=== PATIENT | female | born 1955 | race Caucasian/White ===

== ENCOUNTER 2022-08-01 12:58 | Outpatient (CLI) | payer MEDICARE, OTHER, SELFPAY ==
--- NOTE | ~2022-08-01 | US_ITS ---
EXAMINATION: US thyroid DATE: 08/01/2022 14:10 INDICATION: Nontoxic single thyroid nodule. TECHNIQUE: Multiple ultrasound images of the thyroid were obtained. COMPARISON: None. FINDINGS: The right thyroid lobe measures 3.8 x 1.3 x 1.8 cm. The left thyroid lobe measures 3.9 x 1.3 x 1.8 c m. In the left thyroid lobe, there is a 6 mm coarse calcification. In the left thyroid lobe, there i s an 8 mm mixed cystic and solid, isoechoic, wider than tall nodule with ill-defined margin without e chogenic foci (TI-RADS TR2). IMPRESSION: 1. Small thyroid nodules, likely not clinically significant. No follow-up is needed. Reviewed, dictated and finalized at location A. ING MIXTURE CARRIER IMPRESSION: 1. Small thyroid nodules, likely not clinically significant. No follow-up is ne eded.
== END 2022-08-01 12:59 | disposition home or self-care (01) ==
LOC: ANHIMG 13:05
PROVIDERS: PCP Family Medicine; Visit Provider Physician Assistant Medical
DX: E04.2 Nontoxic multinodular goiter (principal)
CPT/HCPCS: 76536

== ENCOUNTER 2022-11-11 01:32 | Day surgery (SDC) | payer MEDICARE, OTHER, SELFPAY ==
[2022-11-05 08:54] VITALS: BMI 25.2
[2022-11-11 09:15] VITALS: BP 156/61; PULSE 74; RESP 16; TEMP 36.3; O2SAT 98; BMI 23.2
--- NOTE | 2022-11-11 09:30 | P.PNAN_ITS ---
Anes - Initial Pre Proc Eval Procedure: Operation Date: 11/11/22 10:30 Proposed Procedures p Colonoscopy - Rudolph Youssef MD Date/Time: 11/11/22 09:30 Surgeon: Rudolph Youssef MD Pre Op Diagnosis: other fecal abnormalities Patient Data Age: 67 Gender: F Height: 1.45 m Weight: 48.7 kg Last Vital Signs Temp 36.3 C L 11/11/22 09:15 Pulse 74 11/11/22 09:15 Resp 16 11/11/22 09:15 BP 156/61 H 11/11/22 09:15 Pulse Ox 98 11/11/22 09:15 O2 Del Method Room Air 11/11/22 09:15 Allergies Allergy/AdvReac Type Severity Reaction Status Date / Time No Known Allergies Allergy Verified 11/11/22 09:23 Home Medications Medication Instructions Recorded Confirmed Type multivitamin 1 tablet PO DAILY 01/14/22 11/11/22 History phenytoin sodium extended 100 mg 100 mg PO .COMPLEX 01/14/22 11/11/22 History capsule (Dilantin Extended) phenytoin 50 mg chewable tablet 50 mg PO QPM 07/25/22 11/11/22 History (Dilantin Infatabs) Patient hx anesthesia problems: none Family hx anesthesia problems: none Results Review: All pre-operative results and documents have been reviewed as part of the pre- operative evaluation. [facility] Past Medical History Medical History (Updated 07/25/22 @ 14:04 by Bruna Mas CMA) Arthritis Migraines Seizures Family History Family History (Updated 07/25/22 @ 14:03 by Bruna Mas CMA) Father Diabetes mellitus Diabetic neuropathy Mother Acute myocardial infarction Hypertension Son No problems noted. Social History Social History (Updated 07/25/22 @ 14:13 by Bruna Mas CMA) Smoking status: Former smoker Alcohol intake: current Alcohol use details: seldom; socially Substance use: never Substance use type: does not use Lack of Transportation: No Lack of Food: Never True Current Housing: I Have Housing Concerned About Future Housing: No Difficulty Paying Gas/Electric Bills: No Difficulty Paying for Meds: No Currently Unemployed: No Education: Trade/Vocational Certificate Difficulty w/ Childcare or Family Care: No Living arrangements: alone Spiritual care concerns: No Agree to blood products: Yes Anes - Eval Final PreProcedure Day of Procedure 11/11/22 09:30 Patient weight: normal Heart: regular rate and rhythm Lungs: clear to auscultation and normal air movement Airway: Mallampati scale class II Neurological: alert and oriented Last oral intake: >/= 8 hours ASA classification: III Emergent: no Anesthetic plan: proceed Anesthesia type and monitoring: general GIVS Results Review: All pre-operative results and documents have been reviewed as part of the pre- operative evaluation. Informed Consent: The patient's anesthetic plan and its attendant risks and benefits were discussed with the patient/family/POA. Questions were solicited and answers provided to the satisfaction of the patient/family/POA.
[2022-11-11] MEDS: LACTATED RINGERS 1,000 ML 150 ML IV CONT (09:42)
--- NOTE | 2022-11-11 10:08 | PM.HPGS ---
History of Present Illness History of Present Illness Consent: Risks, benefits, and alternatives have been discussed and questions answered. Patient agrees to proceed with procedure. Chief complaint: positive cologuard test Narrative: Orquidea Kim is a 67 year old female Presents for screening colonoscopy. Patient recently found to have positive Cologuard test. Patient reports that her current weight appetite and bowel movements are normal. Patient denies abdominal pain. She has had no bleeding. Family history is noncontributory. Review of Systems Review of Systems: Review of systems noncontributory. [facility] Past Medical History Medical History (Updated 11/11/22 @ 10:10 by Rudolph Youssef MD) Arthritis Migraines Seizures Family History Family History (Updated 07/25/22 @ 14:03 by Bruna Mas CMA) Father Diabetes mellitus Diabetic neuropathy Mother Acute myocardial infarction Hypertension Son No problems noted. Social History Social History (Updated 07/25/22 @ 14:13 by Bruna Mas CMA) Smoking status: Former smoker Alcohol intake: current Alcohol use details: seldom; socially Substance use: never Substance use type: does not use Lack of Transportation: No Lack of Food: Never True Current Housing: I Have Housing Concerned About Future Housing: No Difficulty Paying Gas/Electric Bills: No Difficulty Paying for Meds: No Currently Unemployed: No Education: Trade/Vocational Certificate Difficulty w/ Childcare or Family Care: No Living arrangements: alone Spiritual care concerns: No Agree to blood products: Yes Meds Home Medications and Allergies Home Medications Medication Instructions Recorded Confirmed Type multivitamin 1 tablet PO DAILY 01/14/22 11/11/22 History phenytoin sodium extended 100 mg 100 mg PO .COMPLEX 01/14/22 11/11/22 History capsule (Dilantin Extended) phenytoin 50 mg chewable tablet 50 mg PO QPM 07/25/22 11/11/22 History (Dilantin Infatabs) Allergies Allergy/AdvReac Type Severity Reaction Status Date / Time No Known Allergies Allergy Verified 11/11/22 09:23 Vital Signs Vital Signs - 24 hr 11/11/22 09:15 Temperature 97.3 F L Pulse Rate 74 Respiratory Rate 16 Blood Pressure 156/61 H Pulse Oximetry 98 Oxygen Delivery Room Air Exam Narrative: Physical exam reveals patient to be alert. Vital signs stable. HEENT exam is unremarkable. Patient is anicteric. Lungs are clear to auscultation and percussion. Heart is without murmur or extra sounds. Abdomen bowel sounds are present soft nontender with no organomegaly. Digital external rectal exam is normal. Assessment and Plan Assessment and plan (1) Positive colorectal cancer screening using Cologuard test: Code(s): R19.5 - Other fecal abnormalities Status: Acute Assessment and Plan: Patient presents for screening colonoscopy. Recent Cologuard test was found to be positive.
[2022-11-11] MEDS: SIMETHICONE ORAL SUSPENSION 20 MG/0.3 ML 30 ML BOTTLE 0.6 ML IRRIGATION (11:13)
[2022-11-11 11:22] VITALS: BP 97/63; PULSE 71; RESP 22; O2SAT 100
[2022-11-11 11:32] VITALS: BP 119/70; PULSE 61; RESP 22; O2SAT 100
[2022-11-11 11:42] VITALS: BP 119/70; PULSE 59; RESP 18; O2SAT 100
--- NOTE | 2022-11-11 11:55 | SUR.PHASEII ---
Discharge delayed due to [facility] not being available until 1240.
== END 2022-11-11 12:30 | disposition home or self-care (01) ==
PROVIDERS: PCP Family Medicine; Visit Provider Internal Medicine Gastroenterology
PROC: 0DJD8ZZ Inspection of Lower Intestinal Tract, Via Natural or Artificial Opening Endoscopic (ICD-10-PCS; CPT 45378; principal; 2022-11-11 10:30)
DX: Z12.11 Encounter for screening for malignant neoplasm of colon (principal); R19.5 Other fecal abnormalities; D12.3 Benign neoplasm of transverse colon; D12.5 Benign neoplasm of sigmoid colon; K64.8 Other hemorrhoids; G40.909 Epilepsy, unspecified, not intractable, without status epilepticus; Z87.891 Personal history of nicotine dependence
CPT/HCPCS: 45385; 88305; J2704; J7120

== ENCOUNTER 2024-08-03 12:21 | Inpatient (IN) | payer MEDICARE, OTHER, SELFPAY ==
[2024-08-03] VITALS (14 sets, daily range): BP systolic 126–156; BP diastolic 73–89; PULSE 85–96; RESP 12–20; TEMP 36.2–37.2; O2SAT 95–100; BMI 23.4
--- NOTE | ~2024-08-03 | XR_ITS ---
Exam: Abdomen 1V HISTORY: WITH HYPAQUE WATER SOLUBLE CONTRAST COMPARISON: 08/19/2024 TECHNIQUE: Supine images of the lower chest and upper abdomen FINDINGS: Gastrostomy tube extends into the left upper quadrant. Oral contrast opacifies the stomach and proximal small bowel IMPRESSION: Gastrostomy tube in good position and ready for immediate use. Given the nursing notes document leakage around the tube, perhaps conversion to a gastrojejunostomy t ube would be more appropriate in this patient, especially in her history of laryngeal penetration and aspiration. Consult interventional radiology, if this needs to be requested. Thank you for the opportunity to assist in the care of your patient. For questions or concerns regarding this interpretation, please reach out to me directly at [phone]. Reviewed, dictated and finalized at location A. IMPRESSION: Gastrostomy tube in good position and ready for immediate use. Given the nursing notes document leakage around the tube, perhaps conversion to a gastrojejunostomy tube would be more appropriate in this patient, especially in her history of laryngeal penetration and aspiration. Consult interventional radiology, if this needs to be requested. Thank you for the opportunity to assist in the care of your patient. For questions or concerns regarding this interpretation, please reach out to me directly at [phone].
--- NOTE | ~2024-08-03 | XR_ITS ---
XR abdomen/kub 1V Ordering provider: RAMON Arriola History: . abdominal distention . Comparison: None. FINDINGS: BOWEL: Distended bowel loops with no evidence of obstruction. Nonobstructive bowel gas pattern. Nasogastric tube with the tip in the stomach. ORGANOMEGALY: None. SIGNIFICANT PATHOLOGIC CALCIFICATIONS: None. OTHER: No free air is seen under the diaphragm. Levoscoliosis with degenerative changes of the spine. IMPRESSION: NO ACUTE ABDOMINAL FINDINGS. Distended bowel loops with no definite evidence of obstruction. Follow-up advised. Reviewed, dictated and finalized at location A. IMPRESSION: NO ACUTE ABDOMINAL FINDINGS. Distended bowel loops with no definite evidence of obstruction. Follow-up advis ed.
--- NOTE | ~2024-08-03 | XR_ITS ---
EXAMINATION: XR abdomen gastric tube rechec DATE: 08/05/2024 14:37 INDICATION: Nasogastric tube adjustment. TECHNIQUE: An upright view of the abdomen was obtained. COMPARISON: CT 08/05/2024 FINDINGS: The lower abdomen is excluded. There are multiple dilated loops of small bowel. The stomach is distended. The nasogastric tube tip is in the distal esophagus. IMPRESSION: 1. Nasogastric tube tip in abnormal position in the distal esophagus. 2. Dilated small bowel and distended stomach, consistent with adynamic ileus. Reviewed, dictated and finalized at location A. OR MAKER
--- NOTE | ~2024-08-03 | XR_ITS ---
EXAM: XR abdomen/kub 1V DATE: 08/07/2024 19:32 HISTORY: Abdominal distention . COMPARISON: 08/06/2024, 08/05/2024; CT abdomen pelvis 08/05/2024. FINDINGS: NG tube removed or displaced. Severe gastric distention. Multiple loops of dilated small vesna wel throughout the abdomen. No definite large bowel dilation. Severe lumbar scoliosis and degenerativ e disc disease. Surgical drain over the left pelvis. IMPRESSION: NG tube not visualized. Severe gastric distention. Small bowel ileus or obstruction. Reviewed, dictated and finalized at location K. IMPRESSION: NG tube not visualized. Severe gastric distention. Small bowel ileu s or obstruction.
--- NOTE | ~2024-08-03 | CT_ITS ---
EXAMINATION: CT brain wo con DATE: 08/10/2024 11:16 INDICATION: Confusion. TECHNIQUE: Computed tomography (CT) of the head was performed without intravenous contrast. The mA wa s adjusted according to patient size. Iterative reconstruction technique was employed. The dose-lengt h product was 605.33 mGy-cm. COMPARISON: Head CT 03/10/2019 FINDINGS: There are scattered areas of low attenuation in the cerebral white matter, which is within normal limits for the patient's age. There is no intracranial hemorrhage, acute infarction, or abnorm al intracranial mass lesion. The ventricles are normal in size. The orbits are normal. The paranasal sinuses are clear. There is a trace left mastoid effusion. IMPRESSION: 1. Normal aging brain. Reviewed, dictated and finalized at location B. IMPRESSION: 1. Normal aging brain.
--- NOTE | ~2024-08-03 | XR_ITS ---
Supine and upright views of the abdomen Clinical history: G-tube placement Findings: G-tube in satisfactory position, contrast opacifying the gastric lumen. No abnormal extrava sation of contrast seen. Bowel gas pattern is otherwise nonspecific. No evidence for obstruction or f ree air. No abnormal mass lesion or calcification is seen. Osseous structures are intact. Impression: Percutaneous gastrostomy tube in satisfactory position. Reviewed, dictated and finalized at location . Impression: Percutaneous gastrostomy tube in satisfactory position.
--- NOTE | ~2024-08-03 | XR_ITS ---
MODIFIED ESOPHAGRAM HISTORY: Possible aspiration TECHNIQUE: Modified barium esophagram was performed on 08/19/2024. I administered fluoroscopy and perf ormed the exam with speech pathologist. Patient was seated for lateral fluoroscopic imaging for alfonso stion of thin liquids, pudding, solids and quantified amounts, followed by thin liquids in uncontroll ed amounts. This was recorded on tape. A single fluoroscopic spot image was also recorded. The DAP fo r this procedure was 1.107 Gycm2. The amount of fluoroscopy time used during this procedure was 1.5 m inutes. FINDINGS: Oral stage: Reduced lingual movement with premature spillage of thin liquids.. Pharyngeal stage: Reduced laryngeal elevation and adduction. There is laryngeal penetration before an d during the swallow with aspiration during and following the swallow.. Cervical/esophageal stage: Adequate function. IMPRESSION: Oropharyngeal dysphagia with laryngeal penetration and aspiration. Please correlate with speech pathologist findings and specific feeding recommendations. Reviewed, dictated and finalized at location A. IMPRESSION: Oropharyngeal dysphagia with laryngeal penetration and aspiration. Please correlate with speech pathologist findings and specific feeding recomme ndations.
--- NOTE | ~2024-08-03 | XR_ITS ---
Portable chest x-ray Comparison: 08/09/2024 Clinical History: Chest congestion Findings: NG tube and right-sided PICC line are in place. There is central congestive change and pro bable mild bibasilar pulmonary edema. Cardiomediastinal silhouette is stable. Bones and soft tissues are unremarkable. Impression: Central congestive change and probable mild bibasilar pulmonary edema. Support tubes, as above. Reviewed, dictated and finalized at location . Impression: Central congestive change and probable mild bibasilar pulmonary edema. Support tubes, as above.
--- NOTE | ~2024-08-03 | CT_ITS ---
EXAMINATION: CT abdomen pelvis w con DATE: 08/05/2024 12:08 INDICATION: Small bowel obstruction TECHNIQUE: Computed tomography (CT) of the abdomen and pelvis was performed with 100 mL Omnipaque-350 intravenous contrast. Automated exposure control and iterative reconstruction technique were employe d. The dose-length product was 281.95 mGy-cm. COMPARISON: 08/03/24 FINDINGS: Small posterior layering left pleural effusion. Mild dependent atelectasis in the bilateral lower lob es, left greater than right. Heart size is normal. No pericardial effusion. Nasogastric tube tip just above level of the gastroesophageal junction with some fluid in the distal esophagus. There is persi stent prominent gaseous distention of the stomach and multiple dilated loops of gas and fluid-filled small bowel throughout the abdomen and pelvis. The bowel gradually tapers distally transition to deco mpressed small bowel in the right abdomen however a single discrete transition point is not identifie d. Moderate amount of gas and stool at the cecum. The more distal colon is relatively decompressed. N ormal appendix. Minimal gas within the decompressed bladder to recent catheterization or instrumentat ion. Atrophic uterus and bilateral adnexa are unremarkable. Small amount of perihepatic and perisplen ic ascites. Additional small amount of ascites within the small right inguinal hernia. No abscess or free intraperitoneal gas. There is a surgical drain along with some soft tissue within the subcutaneo us tissues at the left inguinal region likely related to interval left inguinal hernia repair.. Tip o f the catheter near the anterior margin of the pubic symphysis. Moderate thoracolumbar levoscoliosis with moderate to severe spondylosis. IMPRESSION: 1. Persistent distention of the stomach and multiple dilated loops of small bowel which progressively decreases in caliber without a clearly identifiable single discrete transition point and would favor residual postoperative ileus over obstruction. 2. Small left pleural effusion and small amount of ascites. 3. Nasogastric tube tip above level of the gastroesophageal junction. Recommend advancement by 10 cm. 4. Postoperative change of interval left inguinal hernia repair with subcutaneous surgical drain at t he operative bed. Reviewed, dictated and finalized at location B. MECHANIC IMPRESSION: 1. Persistent distention of the stomach and multiple dilated loops of small bow el which progressively decreases in caliber without a clearly identifiable sing le discrete transition point and would favor residual postoperative ileus over obstruction. 2. Small left pleural effusion and small amount of ascites. 3. Nasogastric tube tip above level of the gastroesophageal junction. Recommend advancement by 10 cm. 4. Postoperative change of interval left inguinal hernia repair with subcutaneo us surgical drain at the operative bed.
--- NOTE | ~2024-08-03 | XR_ITS ---
XR abdomen/kub 1V Ordering provider: Pipo Peguero DO History: . NG placement . Comparison: None. FINDINGS/impression: Nasogastric tube with the tip in the stomach. The sidehole is near to the gastro esophageal junction. Reviewed, dictated and finalized at location A. L CONTROL WORKER
--- NOTE | ~2024-08-03 | CT_ITS ---
EXAMINATION: CT abdomen pelvis w con DATE: 08/03/2024 13:44 INDICATION: Abdominal pain. Nausea. TECHNIQUE: Computed tomography (CT) of the abdomen and pelvis was performed with 100 mL Omnipaque 350 intravenous contrast. Automated exposure control and iterative reconstruction technique were employe d. The dose-length product was 215.51 mGy-cm. COMPARISON: None. FINDINGS: The visualized portions of the lung bases demonstrate mild atelectasis. No pleural effusion . The heart size is normal. No pericardial effusion. There is fluid in the esophagus. The stomach is distended. The liver, spleen, pancreas, adrenal glands, and kidneys are normal. There is a left ingui nal hernia containing small bowel. The bowel is dilated proximal to the hernia and decompressed dista l to the hernia. There is a right inguinal hernia containing ascites. There are no pathologically enl arged lymph nodes. There is thoracolumbar levoscoliosis and severe spondylosis. There is mild chronic anterior wedging of multiple thoracic vertebral bodies. IMPRESSION: 1. Left inguinal hernia containing small bowel with small bowel obstruction. 2. Right inguinal hernia containing ascites. Reviewed, dictated and finalized at location A. NESS CENTER MANAGER
--- NOTE | ~2024-08-03 | XR_ITS ---
EXAMINATION: XR abdomen gastric tube insert DATE: 08/03/2024 15:19 INDICATION: Nasogastric tube placement. TECHNIQUE: An upright view of the abdomen was obtained. COMPARISON: CT abdomen and pelvis 08/03/2024 FINDINGS: The lower abdomen is excluded. The stomach is distended. There are dilated loops of small b owel. The nasogastric tube tip is in the stomach. IMPRESSION: 1. Nasogastric tube tip in the stomach. 2. Small bowel obstruction. Reviewed, dictated and finalized at location A. QUALITY CONSULTANT
--- NOTE | ~2024-08-03 | XR_ITS ---
EXAMINATION: XR UGI w esoph water soluble DATE: 08/10/2024 11:49 INDICATION: 69-year-old woman postoperative day 5 following open obstructing left inguinal hernia rep air and postoperative day #1 following exploratory laparotomy for suspected abdominal compartment syn drome. TECHNIQUE: The patient drank Gastrografin. Fluoroscopy of the hypopharynx and esophagus was performed . Fluoroscopy exposure time was 2.4 minutes. The total number of images was 119. The dose-area produc t was 19.6 Gy-cm^2. COMPARISON: Reference was made to a preoperative CT examination of the abdomen and pelvis performed . FINDINGS: The patient swallowed Gastrografin without difficulty. Esophageal dysmotility is also noted, with aggressive tertiary contractions. Significant esophageal reflux is also detected. Delayed passage of Gastrografin into the stomach, with external compression of the proximal stomach f or which (likely) prior fundoplication is suspected. The oral contrast did not migrate out of the proximal stomach, for the duration of the examination. Significantly dilated loops of colon are also noted, as is air within the rectum. Extraluminal air is also present, and system with patient's history. IMPRESSION: Findings within the distal esophagus/proximal stomach for which prior fundoplication is suspected. Esophageal dysmotility and significant esophageal reflux is also detected. Reviewed, dictated and finalized at location A. IMPRESSION: Findings within the distal esophagus/proximal stomach for which prior fundoplic ation is suspected. Esophageal dysmotility and significant esophageal reflux is also detected.
--- NOTE | ~2024-08-03 | XR_ITS ---
XR chest PICC line Ordering provider: Deshawn Walden MD History: 69 years Female with . picc placement . Comparison: December 08, 2018 FINDINGS: MEDIASTINUM: The cardiac silhouette is not enlarged. After repositioning PICC line is seen with the t ip overlying the superior vena cava. Nasogastric tube with the tip in the stomach and the sidehole ne ar to the gastroesophageal junction. Prominent both ben. LUNGS: No infiltrates, effusions or pneumothorax. Underlying fibrotic changes. OTHER: No free air under the diaphragm. Levoscoliosis in the lumbar area with degenerative changes seen. The IMPRESSION: No acute cardiopulmonary pathology. Reviewed, dictated and finalized at location A. ING BOOKS LIBRARY CLERK
--- NOTE | ~2024-08-03 | XR_ITS ---
Upright portable view of the abdomen Clinical history: NG tube placement COMPARISON: 08/05/2024 Findings: NG tube in place, side port just below the GE junction. There is marked gaseous distention of the stomach. There probable distended small bowel loops. No definite free air. No abnormal mass le dre or calcification is seen. Osseous structures are intact. Impression: NG tube in place, as above. Marked gaseous distention of several probable dilated small bowel loops. Correlate for small bowel ob struction versus ileus. Reviewed, dictated and finalized at location M. Impression: NG tube in place, as above. Marked gaseous distention of several probable dilated small bowel loops. Correl ate for small bowel obstruction versus ileus.
--- NOTE | ~2024-08-03 | XR_ITS ---
XR chest 1V portable Ordering provider: Anna Romero MD History: 69 years Female with . lungs coarse . Comparison: August 13, 2024 FINDINGS: MEDIASTINUM: The cardiac silhouette is slightly enlarged. Nasogastric tube is seen with the tip in th e stomach. Right central line with the tip overlying the superior vena cava. Congestive ben. LUNGS: No effusions or pneumothorax. Minimal opacification the right lung base which may indicate ate lectasis versus pneumonia. Underlying fibrotic changes. Vague opacity seen in the left midzone periph erally. Follow-up advised. OTHER: No free air under the diaphragm. Levoscoliosis of the lumbar spine. Bilateral shoulder osteoarthritic changes. IMPRESSION: Minimal opacification the right lung base suggestive of atelectasis versus pneumonia. Reviewed, dictated and finalized at location A. IMPRESSION: Minimal opacification the right lung base suggestive of atelectasis versus pneu monia.
--- NOTE | ~2024-08-03 | XR_ITS ---
Exam: Abdomen 1V HISTORY: abdominal pain, distention COMPARISON: 08/19/2024 TECHNIQUE: Supine images of the abdomen FINDINGS: Air and contrast distention of the colon and rectum. A 3 cm rounded density is identified to the left of midline for which the percutaneous gastrostomy tu be is suspected. Left lung base is unremarkable. Skin whitley are present. IMPRESSION: Significant gaseous distention of the colon. Contrast opacification of the rectum which is markedly distended. Percutaneous gastrostomy to the left of midline. Reviewed, dictated and finalized at location A.
--- NOTE | ~2024-08-03 | XR_ITS ---
XR abdomen gastric tube insert Ordering provider: Matthias Jett MD History: . Gastritis with severe gastric distention . Comparison: None. FINDINGS/impression: Nasogastric tube with the tip in the stomach. The sidehole is near to the gastroesophageal junction. Reviewed, dictated and finalized at location A. N BUILDER
--- NOTE | ~2024-08-03 | XR_ITS ---
Exam: Abdomen 1V HISTORY: NGT placement COMPARISON: 08/03/2024 (preoperatively) approximately 5 hours earlier TECHNIQUE: Upright images of the lower chest and upper abdomen FINDINGS: Nasogastric tube extends into the left upper quadrant, within the air opacified dilated stomach. IMPRESSION: Nasogastric tube in good position and ready for immediate use. Reviewed, dictated and finalized at location A. LITATOR
--- NOTE | ~2024-08-03 | XR_ITS ---
EXAMINATION: XR chest 1V portable Exam Date/Time: 08/13/2024 15:38 CDT HISTORY: r/o PNA Comparison: 08/10/2024. RESULT: Lines, tubes, and devices: Subdiaphragmatic NG tube. Right upper extremity PICC, terminating in the right atrium. Lungs and pleura: Mild bibasilar atelectasis/scar. Mild bilateral costophrenic angle blunting. No fo archana consolidation. No pneumothorax. Cardiomediastinal silhouette: Stable. Other: No acute osseous or upper abdominal finding. IMPRESSION: Right upper extremity PICC terminates in the right atrium, consider 3 cm retraction. No focal consolidation to suggest pneumonia. Possible small bilateral pleural effusions. Reviewed, dictated and finalized at location K. IMPRESSION: Right upper extremity PICC terminates in the right atrium, consider 3 cm retrac tion. No focal consolidation to suggest pneumonia. Possible small bilateral pleural e ffusions.
--- NOTE | ~2024-08-03 | XR_ITS ---
Portable chest x-ray Comparison: 08/06/2024 Clinical History: Tachypnea Findings: NG tube in place and right-sided PICC line in place. Probable central congestive change. P ossible minimal bibasilar pulmonary edema. Cardiomediastinal silhouette is stable. Bones and soft ti ssues are unremarkable. Impression: Central congestive change and possible minimal bibasilar pulmonary edema. Correlate for pulmonary art jose cruz hypertension. Support tubes, as above. Reviewed, dictated and finalized at location . Impression: Central congestive change and possible minimal bibasilar pulmonary edema. Corre late for pulmonary artery hypertension. Support tubes, as above.
--- NOTE | ~2024-08-03 | XR_ITS ---
EXAMINATION: XR chest 1V portable DATE: 08/29/2024 13:52 INDICATION: Pneumonia. Pleural effusion. TECHNIQUE: A single frontal view of the chest was obtained. COMPARISON: Chest single view 08/15/2024 FINDINGS: There is mild scarring at the lung apices. No pleural effusion or pneumothorax. The heart s ize is normal. A right upper extremity peripherally inserted central venous catheter (PICC) is seen w ith tip at the superior cavoatrial junction. IMPRESSION: 1. Mild scarring at the lung apices. Reviewed, dictated and finalized at location A.
--- NOTE | ~2024-08-03 | CT_ITS ---
Non-contrast CT scan of the Abdomen and Pelvis Clinical indication: Abdominal distention Technique: 2.5 mm axial scans were obtained through the abdomen and pelvis without intravenous or or al contrast. Dose reduction technique was used on this scan by utilizing automated exposure control a nd iterative reconstruction technique. The dose-length product (DLP) was 400.21 mGy-cm. COMPARISON: 08/05/2024 Findings: Images through the lung bases reveal small bilateral pleural effusions with mild bibasilar atelectatic change. NG tube tip is just at the GE junction. There is extensive portal venous gas throughout the liver. The kidneys, spleen, pancreas, gallbladder , and adrenals appear normal. There is no aortic aneurysm. There is marked distention of the stomach, with extensive distention of numerous small bowel loops. T here is extensive pneumatosis of numerous small bowel loops. There is also probable pneumatosis at th e posterior gastric fundus. Large bowel is decompressed. Images through the pelvis were performed. There is no evidence of ascites or lymphadenopathy. Urinary bladder decompressed, grossly unremarkable. No definite adnexal mass seen. Small amount of fluid pre sent in small right inguinal hernia. There are diffuse soft tissue and surgical changes. There is a s mall catheter or line extending into the left groin/inguinal region, tip extending into the subcutane ous soft tissues near the pubic symphysis. Impression: Findings highly suspicious for extensive bowel ischemia, extensive small bowel and gastric pneumatosi s and extensive portal venous gas. Extensive dilatation of small bowel loops and stomach with decompression of large bowel. Transition p oint not well delineated, but findings are highly suspicious for distal small bowel obstruction. NG tube tip at the GE junction. Further advancement of NG tube into the stomach is required for adequ ate placement. Small bilateral pleural effusions. Reviewed, dictated and finalized at location . Impression: Findings highly suspicious for extensive bowel ischemia, extensive small bowel and gastric pneumatosis and extensive portal venous gas. Extensive dilatation of small bowel loops and stomach with decompression of lar ge bowel. Transition point not well delineated, but findings are highly suspici ous for distal small bowel obstruction. NG tube tip at the GE junction. Further advancement of NG tube into the stomach is required for adequate placement. Small bilateral pleural effusions.
--- NOTE | ~2024-08-03 | XR_ITS ---
EXAMINATION: XR barium swallow modified DATE: 08/23/2024 14:16 INDICATION: Dysphagia. TECHNIQUE: The patient was given barium-containing material of multiple consistencies to swallow by t he speech pathologist while I performed fluoroscopy. Fluoroscopy exposure time was 1.8 minutes. The n umber of fluoroscopy images saved to the PACS was 1. Dose-area product was 1.006 Gy-cm^2. FINDINGS: There is reduced laryngeal elevation and reduced laryngeal adduction. There is aspiration of thin liq uids. IMPRESSION: 1. Aspiration of thin liquids. 2. Please refer to the speech therapy report for recommendations. Reviewed, dictated and finalized at location A.
--- NOTE | 2024-08-03 12:58 | ED_ITS ---
HPI - Abdominal Pain General Chief Complaint: Abdominal Pain <YOMAIRA Rosario Last Filed: 08/03/24 16:46> Stated Complaint: Abdominal distention-possible obstruction <YOMAIRA Rosario Last Filed: 08/03/24 16:46> Time Seen by Provider: 08/03/24 12:38 <YOMAIRA Rosario Last Filed: 08/03/24 16:46> Source: patient <YOMAIRA Rosario Last Filed: 08/03/24 16:46> Mode of arrival: ambulatory <YOMAIRA Rosario Last Filed: 08/03/24 16:46> Limitations: no limitations <YOMAIRA Rosario Last Filed: 08/03/24 16:46> History of Present Illness HPI narrative: Patient is a 69 y/o female who presents to the ED with c/o possible abdominal obstruction. Patient reports she has not felt well since Thursday. Reports nausea with dry heaving, chills, subjective fevers. Thought she may be developing the flu. Yesterday began having diffuse pain in her midback and abdominal bloating/distension. Went to an urgent care today where they performed an x-ray of her thoracic spine. The x-ray showed moderate gaseous distention of her stomach and recommended further imaging. Sent here for further evaluation. Patient denies vomiting. Denies diarrhea. Last bowel movement was Thursday. Does not believe she has been passing gas either. Denies previous history of obstruction. Denies previous abdominal surgery. <YOMAIRA Rosario Last Filed: 08/03/24 16:46> Related Data Home Medications: Home Medications ?Medication ?Instructions ?Recorded ?Confirmed ?Last Taken ?Type multivitamin 1 tablet PO DAILY 01/14/22 08/24/23 Unknown History <YOMAIRA Rosario Last Filed: 08/03/24 16:46> Allergies/Adverse Reactions: Allergies Allergy/AdvReac Type Severity Reaction Status Date / Time No Known Allergies Allergy Verified 08/03/24 12:46 <YOMAIRA Rosario Last Filed: 08/03/24 16:46> Review of Systems 2 Review of Systems: All systems reviewed & are unremarkable except as noted in HPI. <Divine Farfan PA-C - Last Filed: 08/03/24 16:46> All systems reviewed & are unremarkable except as noted in HPI and below < Divine Farfan PA-C - Last Filed: 08/03/24 16:46> [facility] Past Medical History Medical History: Medical History Nontoxic thyroid nodule Seizures Migraines Arthritis <YOMAIRA Rosario Last Filed: 08/03/24 16:46> Surgical History Surgical History: Surgical History History of repair of hiatal hernia Laparoscopic <YOMAIRA Rosario Last Filed: 08/03/24 16:46> Family History Family History: Family History Father Diabetes mellitus Diabetic neuropathy Mother Acute myocardial infarction Hypertension Son No problems noted. <Divine Farfan PA-C - Last Filed: 08/03/24 16:46> Social History Social History: Social History Smoking status: Former smoker Alcohol intake: current Alcohol use details: seldom; socially Substance use: never Substance use type: does not use Lack of Transportation: No Lack of Food: Never True Current Housing: I Have Housing Concerned About Future Housing: No Difficulty Paying Gas/Electric Bills: No Difficulty Paying for Meds: No Currently Unemployed: No Education: Trade/Vocational Certificate Difficulty w/ Childcare or Family Care: No Living arrangements: alone Spiritual care concerns: No Agree to blood products: Yes <YOMAIRA Rosario Last Filed: 08/03/24 16:46> Exam 2 Narrative: GENERAL: Elderly, uncomfortable appearing, thin, non-toxic, in mild acute distress due to pain. HEAD: Normocephalic, atraumatic. RESPIRATORY: Airway patent, respirations nonlabored. Clear to auscultation bilaterally, no rales, rhonchi, wheezing. CARDIOVASCULAR: Regular rate and rhythm without murmurs, rubs, or gallops. ABDOMINAL: Abdomen is firm, distended, diffusely tender. High pitched and decreased BS. MUSCULOSKELETAL: Moves all extremities. No gross deformities. Diffuse nonfocal non-midline tenderness throughout lower thoracic region. SKIN: Warm, dry, normal color. NEURO: A&O X3. Speech clear. Cranial nerves II-XII grossly intact. Steady gait. No ataxic movements. PSYCHIATRIC: Appropriate mood and affect. Normal interaction. <Divine Farfan PA-C - Last Filed: 08/03/24 16:46> Course MATERIALS MANAGEMENT MANAGER/PA Physician Supervision This visit was performed by both a physician and an APC. I performed all aspects of the MDM as documented. <Edward Hartley MD - Last Filed: 08/03/24 21:03> Vital Signs Vital signs: Vital Signs Temperature 98.0 F 08/03/24 12:24 Pulse Rate 96 08/03/24 12:24 Respiratory Rate 20 08/03/24 12:24 Blood Pressure 150/86 H 08/03/24 12:24 Pulse Oximetry 99 08/03/24 12:24 Oxygen Delivery Room Air 08/03/24 12:24 Temperature 99.0 F 08/03/24 20:29 Pulse Rate 87 08/03/24 20:55 Respiratory Rate 16 08/03/24 20:55 Blood Pressure 156/85 H 08/03/24 20:55 Pulse Oximetry 100 08/03/24 20:55 Oxygen Delivery Room Air 08/03/24 20:55 Oxygen Flow Rate 8 08/03/24 20:40 <Divine Farfan PA-C - Last Filed: 08/03/24 16:46> Vital Signs Temperature 98.0 F 08/03/24 12:24 Pulse Rate 96 08/03/24 12:24 Respiratory Rate 20 08/03/24 12:24 Blood Pressure 150/86 H 08/03/24 12:24 Pulse Oximetry 99 08/03/24 12:24 Oxygen Delivery Room Air 08/03/24 12:24 Temperature 99.0 F 08/03/24 20:29 Pulse Rate 87 08/03/24 20:55 Respiratory Rate 16 08/03/24 20:55 Blood Pressure 156/85 H 08/03/24 20:55 Pulse Oximetry 100 08/03/24 20:55 Oxygen Delivery Room Air 08/03/24 20:55 Oxygen Flow Rate 8 08/03/24 20:40 <Edward Hartley MD - Last Filed: 08/03/24 21:03> MDM - Abdominal Pain MDM Narrative Medical decision making narrative: Patient presented to ED with nausea with dry heaving, abdominal distension, midback pain. Abnormal outpatient x-ray imaging showing gaseous distention of abdomen. Vital signs are stable upon arrival, though patient is moderately uncomfortable appearing. Cbc with blood cell count of 15.7. Neutrophil predominance. No bandemia. CMP with dehydration, bicarb 21, anion gap of 19. Fluids ongoing. Blood sugar is 153. EULALIO noted with creatinine today of 1.34. Baseline around 0.8. Again, fluids ongoing. Lactic acid 2.2. Minimal transaminitis. Total bili within normal range. Lipase is elevated at 934. CT scan of abdomen/pelvis obtained and showing L inguinal hernia with SBO. Also showing R inguinal hernia with ascites. Consistent with clinical picture. On exam, patient does have a palpable left inguinal hernia bulge which is slightly firm. No significant overlying skin changes. She states she first noticed this a couple days ago. States she has never previously been told she had a hernia. Attempted reduction with manual manipulation without success. Attempted reverse Trendelenburg positioning, ice pack, pain medication without ability to reduce hernia. Discussed case with Dr. Jett, general surgery, advised to begin antibiotics, NG tube, admit under hospitalist team, keep in the ER for now. Discussed case with Christine Landa NP hospitalist, accepted patient for admission. Sharlene BHARDWAJ with General surgery team in the ED to see patient. Able to place NG tube after several attempts but difficulty reducing hernia. Patient will be taken to the OR from the ED. Patient and family in agreement with plan. <Divine Farfan PA-C - Last Filed: 08/03/24 16:46> Medical Records Attestation: I reviewed the patient's medical records. <Divine Farfan PA-C - Last Filed: 08/03/24 16:46> Lab Data Attestation: I reviewed the patient's lab results. <Divine Farfan PA-C - Last Filed: 08/03/24 16:46> Result diagrams: 08/03/24 12:48 08/03/24 12:48 <Divine Farfan PA-C - Last Filed: 08/03/24 16:46> Labs: Lab Results 08/03/24 Range/Units 12:48 WBC 15.7 H (4.5-10.0) K/mm3 RBC 4.30 (4.2-5.4) M/mm3 Hgb 14.4 (12.0-15.0) g/dL Hct 42.5 (37.0-47.0) % MCV 98.8 (80-100) fl MCH 33.5 (26-34) pg MCHC 33.9 (32-36) g/dl RDW 13.3 (11.5-14.5) % Plt Count 249 (150-375) k/mm3 MPV 9.8 (7.4-10.4) fl Immature Gran % (Auto) 0.7 H (0-0.5) % Neut % (Auto) 90.4 H (45.5-73.1) % Lymph % (Auto) 2.1 L (18.3-44.2) % Saline % (Auto) 6.7 (2.6-8.5) % Eos % (Auto) 0.0 (0-4.4) % Baso % (Auto) 0.1 L (0.2-1.2) % Lymph # (Auto) 0.33 L (0.9-3.2) K/mm3 Saline # (Auto) 1.1 H (0.1-0.6) K/mm3 Eos # (Auto) 0.0 (0-0.3) K/mm3 Baso # (Auto) 0.0 (0.0-0.1) K/mm3 Abs Immat Gran (auto) 0.11 H (0.00-0.031) K/mm3 Absolute Neuts (auto) 14.2 H (1.3-6.7) K/mm3 Absolute Nucleated RBC 0.000 (0.0-0.012) K/mm3 Nucleated RBC % 0.0 (0.0-0.2) % Sodium 132 L (137-145) mmol/L Potassium 4.2 (3.4-5.0) mmol/L Chloride 92 L (98-107) mmol/L Carbon Dioxide 21 L (22-30) mmol/L Anion Gap 19 H (4-12) mmol/L BUN 43 H (7-17) mg/dL Creatinine 1.34 H (0.7-1.0) mg/dL Estim Creat Clear Calc Not Reportable Estimated GFR 39 L (59 - ) Glucose 153 H (65-110) mg/dL Lactic Acid 2.2 H (0.7-2.0) mmol/L Calcium 9.6 (8.4-10.2) mg/dL Total Bilirubin 1.2 (0.2-1.3) mg/dL AST 56 H (14-36) U/L ALT 50 H (6-35) U/L Alkaline Phosphatase 118 (38-126) U/L Troponin I < 0.012 (0.000-0.034) ng/mL Total Protein 8.0 (6.3-8.2) g/dL Albumin 4.9 (3.5-5.1) g/dL Lipase 934 H (23-300) U/L <Divine Farfan PA-C - Last Filed: 08/03/24 16:46> Lab Results 08/03/24 Range/Units 12:48 WBC 15.7 H (4.5-10.0) K/mm3 RBC 4.30 (4.2-5.4) M/mm3 Hgb 14.4 (12.0-15.0) g/dL Hct 42.5 (37.0-47.0) % MCV 98.8 (80-100) fl MCH 33.5 (26-34) pg MCHC 33.9 (32-36) g/dl RDW 13.3 (11.5-14.5) % Plt Count 249 (150-375) k/mm3 MPV 9.8 (7.4-10.4) fl Immature Gran % (Auto) 0.7 H (0-0.5) % Neut % (Auto) 90.4 H (45.5-73.1) % Lymph % (Auto) 2.1 L (18.3-44.2) % Saline % (Auto) 6.7 (2.6-8.5) % Eos % (Auto) 0.0 (0-4.4) % Baso % (Auto) 0.1 L (0.2-1.2) % Lymph # (Auto) 0.33 L (0.9-3.2) K/mm3 Saline # (Auto) 1.1 H (0.1-0.6) K/mm3 Eos # (Auto) 0.0 (0-0.3) K/mm3 Baso # (Auto) 0.0 (0.0-0.1) K/mm3 Abs Immat Gran (auto) 0.11 H (0.00-0.031) K/mm3 Absolute Neuts (auto) 14.2 H (1.3-6.7) K/mm3 Absolute Nucleated RBC 0.000 (0.0-0.012) K/mm3 Nucleated RBC % 0.0 (0.0-0.2) % Sodium 132 L (137-145) mmol/L Potassium 4.2 (3.4-5.0) mmol/L Chloride 92 L (98-107) mmol/L Carbon Dioxide 21 L (22-30) mmol/L Anion Gap 19 H (4-12) mmol/L BUN 43 H (7-17) mg/dL Creatinine 1.34 H (0.7-1.0) mg/dL Estim Creat Clear Calc Not Reportable Estimated GFR 39 L (59 - ) Glucose 153 H (65-110) mg/dL Lactic Acid 2.2 H (0.7-2.0) mmol/L Calcium 9.6 (8.4-10.2) mg/dL Total Bilirubin 1.2 (0.2-1.3) mg/dL AST 56 H (14-36) U/L ALT 50 H (6-35) U/L Alkaline Phosphatase 118 (38-126) U/L Troponin I < 0.012 (0.000-0.034) ng/mL Total Protein 8.0 (6.3-8.2) g/dL Albumin 4.9 (3.5-5.1) g/dL Lipase 934 H (23-300) U/L <Edward Hartley MD - Last Filed: 08/03/24 21:03> Imaging Data Attestation: I personally reviewed and interpreted this imaging study as follows: < Divine Farfan PA-C - Last Filed: 08/03/24 16:46> Radiologist's impression: ITS Impressions Abdomen/Pelvis CT 08/03/24 13:46 IMPRESSION: 1. Left inguinal hernia containing small bowel with small bowel obstruction. 2. Right inguinal hernia containing ascites. Abdomen X-Ray 08/03/24 20:51 IMPRESSION: Nasogastric tube in good position and ready for immediate use. ITS Impressions Abdomen/Pelvis CT 08/03/24 13:46 IMPRESSION: 1. Left inguinal hernia containing small bowel with small bowel obstruction. 2. Right inguinal hernia containing ascites. <Divine Farfan PA-C - Last Filed: 08/03/24 16:46> ITS Impressions Abdomen/Pelvis CT 08/03/24 13:46 IMPRESSION: 1. Left inguinal hernia containing small bowel with small bowel obstruction. 2. Right inguinal hernia containing ascites. Abdomen X-Ray 08/03/24 20:51 IMPRESSION: Nasogastric tube in good position and ready for immediate use. <Edward Hartley MD - Last Filed: 08/03/24 21:03> Discharge Plan Discharge Clinical Impression: Small bowel obstruction, Incarcerated left inguinal hernia, EULALIO (acute kidney injury), Elevated lipase <Divine Farfan PA-C - Last Filed: 08/03/24 16:46> Patient Disposition: Still a Patient <YOMAIRA Rosario Last Filed: 08/03/24 16:46> Condition: Stable <YOMAIRA Rosario Last Filed: 08/03/24 16:46>
[2024-08-03] MEDS: ONDANSETRON INJ 4 MG/2 ML VIAL IV PUSH (13:05)
[2024-08-03] MEDS: SODIUM CHLORIDE 0.9% IV 1,000 ML 999 ML IV CONT ×2 (13:06→15:37)
[2024-08-03] MEDS: MORPHINE SULFATE (*CRX) 2 MG/ML INJ IV PUSH ×3 (13:06→15:58)
[2024-08-03 13:08] LABS: Basophils Percent Auto 0.1 % (0.2-1.2); Hematocrit 42.5 % (37.0-47.0); Hemoglobin 14.4 g/dL (12.0-15.0); Immature Granulocyte Absolute 0.11 K/mm3 (0.00-0.031); Immature Granulocyte Percent A 0.7 % (0-0.5); Lymphocytes Absolute Auto 0.33 K/mm3 (0.9-3.2); Lymphocytes Percent Auto 2.1 % (18.3-44.2); Mean Corpuscular HGB Conc 33.9 g/dl (32-36); Mean Corpuscular Hemoglobin 33.5 pg (26-34); Mean Corpuscular Volume 98.8 fl (80-100); Mean Platelet Volume 9.8 fl (7.4-10.4); Monocytes Absolute Auto 1.1 K/mm3 (0.1-0.6); Monocytes Percent Auto 6.7 % (2.6-8.5); Neutrophils Absolute Auto 14.2 K/mm3 (1.3-6.7); Neutrophils Percent Auto 90.4 % (45.5-73.1); Platelet Count Result 249 k/mm3 (150-375); Red Cell Distribution Width 13.3 % (11.5-14.5); White Blood Count 15.7 K/mm3 (4.5-10.0)
[2024-08-03 13:13] LABS: Lactic Acid Reflex 2.2 mmol/L (0.7-2.0)
[2024-08-03 13:15] LABS: Alanine Aminotransferase 50 U/L (6-35); Albumin Level 4.9 g/dL (3.5-5.1); Alkaline Phosphatase 118 U/L (38-126); Anion Gap 19 mmol/L (4-12); Aspartate Amino Transferase 56 U/L (14-36); Bilirubin,Total 1.2 mg/dL (0.2-1.3); Blood Urea Nitrogen 43 mg/dL (7-17); Calcium 9.6 mg/dL (8.4-10.2); Carbon Dioxide 21 mmol/L (22-30); Chloride 92 mmol/L (98-107); Estimated Glomerular Filt Rate 39; Glucose 153 mg/dL (65-110); Lipase 934 U/L (23-300); Potassium 4.2 mmol/L (3.4-5.0); Sodium 132 mmol/L (137-145)
--- NOTE | 2024-08-03 13:19 | ECG_ITS ---
Test Date: 2024-08-03 13:50:49 Measurements Intervals [place] Rate: 86 P: 47 [place]: 160 QRS: 38 QRSD: 85 T: 11 QT: 374 QTc: 448 Interpretive Statements SINUS RHYTHM No previous ECG available for comparison Electronically Signed On 08-03-2024 15:50:32 VOCATIONAL DIRECTOR by Gabe Feldman M.D.
--- OUTSIDE RECORDS SUMMARY | 2024-08-03 13:42 | XMS_ITS | Clinical Summary ---
Author Organization [facility] Address [address] [place] [address] Care Team Providers Care Laundromat Worker Name Role Phone Unavailable Primary Care Provider Unavailabl e Source Comments [facility],non-owned Affiliates and Associated Physician Practices is amultiple site organization consisting of ambulatory clinics and hospital sitesin [place], [place], [place] and [place]. This disclosure is being madepursuant to the Care Everywhere program and may not contain all information available regarding this patient. Last updated 18.[facility] Allergies No known active allergies Medications * Be aware that medications may not be up to date on this document. Alwaysverify current medications with the patient. Medication Sig Dispensed Refills Start Date End Date Status Phenytoin (DILANTIN PO) A ctive Social History Tobacco Use Types Packs/Day Years Used Date Smoking Tobacco: Never Smokeless Tobacco: Never Sex and Gender Information Value Date Recorded Sex Assigned at Not on file Gender Identity Not on file Sexual Orientation Not on file Last Filed Vital Signs Vital Sign Reading Time Taken Comments Blood Pressure 122/68 09/09/2018 4:41 PM CDT Pulse 90 09/09/2018 4:41 PM CDT Temperature 37.3 C (99.1 F) 09/09/2018 4:41 PM CDT Respiratory Rate 16 09/09/2018 4:41 PM CDT Oxygen Saturation 99% 09/09/2018 4:41 PM CDT Inhaled Oxygen Concentration - - Weight 54 kg (119 lb) 09/09/2018 4:41 PM CDT Height 144.8 cm (4' 9 ) 09/09/2018 4:41 PM CDT Body Mass Index 25.75 09/09/2018 4:41 PM CDT Plan of Treatment Health Maintenance Due Date Last Done Comments BONE DENSITY TESTING 1955 COLOGUARD (AGES 45-75) - COL ON CA SCREENING 1953 COLON MONITORING 1953 COLONOSCOPY - COLON CA SCREENING 1953 CT COLONOGRAPHY - COLON CA SCREENING 1953 Colorectal Cancer Screening 1953 FIT - COLON CA SCREENING 1953 FLEX SIG - COLON CA SCREENING 1953 LIPID TESTING 1953 MAMMOGRAM 1953 MEDICARE AWV 12 MONTHS 1953 HEPATITIS C SCREENING 02/18/1971 DTAP/TDAP/TD VACCINES (1 - Tdap) 02/23/1972 PNEUMOCOCCAL VACCINE 50+ (1 of 1 - PCV) 2003 ZOSTER VACCINE (1 of 2) 2003 SCREENING FOR DIABETES 09/09/2018 COVID-19 VACCINE ( - 2023-2 5 season) 2024 INFLUENZA VACCINE (#1) 2024 DEPRESSION SCREENING 06/01/2024 Respiratory Syncytial Virus (RSV) Vaccine Pt: or over 60 yrs (1 - 1-dose 75+ series) 02/23/2028 HEPATITIS B VACCINE Aged Out No longe r eligible based on patient's age to complete this topic HIB VACCINE Aged Out No longer eligi ble based on patient's age to complete this topic HPV VACCINE Aged Out No longer eligi ble based on patient's age to complete this topic MENINGOCOCCAL (Group B) VACCINE Aged Out No longer eligible based on patient's age to complete this topic MENINGOCOCCAL VACCINE Aged Out No bertram kalina eligible based on patient's age to complete this topic
--- OUTSIDE RECORDS SUMMARY | 2024-08-03 13:42 | XMS_ITS | Referral Summary ---
Author Organization [facility] Address [address] [place] [address] Care Team Providers Care Portuguese Tutor Name Role Phone Unavailable Primary Care Provider Unavailabl e Source Comments [facility],non-owned Affiliates and Associated Physician Practices is amultiple site organization consisting of ambulatory clinics and hospital sitesin [place], [place], [place] and [place]. This disclosure is being madepursuant to the Care Everywhere program and may not contain all information available regarding this patient. Last updated 18.[facility] [address] [employer] Allergies No known active allergies Medications * [...] 09/09/2018 4:41 PM CDT Plan of Treatment Not on file
--- OUTSIDE RECORDS SUMMARY | 2024-08-03 13:42 | XMS_ITS | Clinical Summary ---
Author Organization [facility] Address [address] [place] [address] Phone Care Team Providers Care Drafter Civil Engineering Name Role Phone Annelise Vaz MD Primary Care Provider [phone] Allergies No known active allergies Medications Dilantin Extended 100 mg extended release capsule Take 1 Capsule (100 mg) by mouth 2 times daily. 180 Capsule 3 02/05/2024 Active phenytoin (Dilantin Infatabs) 50 mg Tablet, Chewable Take 1 Tablet (50 mg) by mouth daily. 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 06/10/2014 Acute respiratory failure 06/09/2014 Seizure disorder 06/08/2014 Encounters Date Type Department Care Team Description 07/19/2024 External Device Data STL ABSTRACTION Provider, Abstract 07/05/2024 External Device Data [place] ABSTRACTION Provider, Abstract 06/28/2024 External Device Data [place] ABSTRACTION Provider, Abstract 06/22/2024 External Device Data ST[place] ABSTRACTION Provider, Abstract 06/22/2024 External Device Data [place] ABSTRACTION Provider, Abstract 06/15/2024 External Device Data ST[place] ABSTRACTION Provider, Abstract 06/07/2024 External Device Data STL ABSTRACTION Provider, Abstract 05/18/2024 Telephone [facility] ([facility] [facility]3] Neurology [address] [place] [address] Elsa Alfaro MD Results 05/17/2024 Orders Only [facility] [facility]3] Neurology [address] [address] [place] Nonintractable epilepsy without status epilepticus, unspecified epilepsy type (CMS/HCC) from Last 3 Months Family History Medical History Relation Name Comments Seizures Daughter Seizures Son at 14 Relation Name Status Comments Daughter Son Social History Tobacco Use Types Packs/Day Years Used Date Smoking Tobacco: Never Tobacco Cessation:Counseling Given: Not Answered Alcohol Use Standard Drinks/Week Comments Yes 0 (1 standard drink = 0.6 oz pur e alcohol) Comments Unknown Sex and Gender Information Value Date Recorded Sex Assigned at Not on file Legal Sex Female 5:[address] Gender Identity Not on file Sexual Orientation Not on file Last Filed Vital Signs Vital Sign Reading Time Taken Comments Blood Pressure 129/68 02/05/2024 9:01 AM CDT Pulse 68 02/05/2024 9:01 AM CDT Temperature 36.7 C (98.1 F) 06/12/2014 1:[address] [employer] Respiratory Rate 16 09/17/2020 10:29 AM CDT Oxygen Saturation 97% 09/17/2020 10:29 AM CDT Inhaled Oxygen Concentration - - Weight 47.6 kg (105 lb) 02/05/2024 9:01 AM CDT Height 147.3 cm (4' 10 ) 02/05/2024 9:01 AM CDT Body Mass Index 21.95 02/05/2024 9:01 AM CDT Plan of Treatment Upcoming Encounters Date Type Department Care Team (Late st Contact Info) Description 02/03/2025 10:30 AM CDT Office Visit [facility] ([facility]3] Neurology [address] [address] [place] [address] [address] Health Maintenance Due Date Last Done Comments DTAP/TDAP/TD VACCINES (1 - Tdap) 02/23/1972 BREAST CANCER SCREENING 1993 COLORECTAL SCREENING 1998 Colorectal Cancer Screening 1998 FIT-DNA Q 3 years 1998 FIT/FOBT Q 1 year 1998 Flex Sig/CT Colonography Q 5 years 1998 PNEUMOCOCCAL VACCINE 50+ YEARS (1 of 1 - PCV) 02/23/20 03 ZOSTER VACCINE (1 of 2) 2003 OSTEOPOROSIS SCREENING 2018 INFLUENZA VACCINE (#1) 2023 RSV VACCINE (60+ or ) (1 - 1-dose 75+ series) 02/23/2028 Procedures Procedure Name Priority Date/Time Associated Diagnosis Comments PHENYTOIN LEVEL, TOTAL Routine 05/17/2024 11:[address] Nonintractable epilepsy without status epilepticus, unspecified epilepsy type ([facility]) from Last 3 Months Results * PHENYTOIN LEVEL, TOTAL (05/17/2024 11:[address]) Blood 05/17/2024 11:[address] us Elsa Alfaro MD CHEMISTRY ORDERABLES Final Res ult [facility] [address] [place] [address] from Last 3 Months Insurance MEDICARE PART A AND B FLY MCKOY AHA [place] [id number] Advance Directives For more information, please contact: [phone] * Full Code (Latest Code Status on File) Date Activated Date Inactivated Comments 06/08/2014 7:42 PM 06/12/2014 8:00 PM Care Teams Drafter Civil Engineering Relationship Specialty Start Date End Date Annelise Vaz MD [address] [place] [phone] PCP - General Family Practice 02/05/24
--- OUTSIDE RECORDS SUMMARY | 2024-08-03 13:42 | XMS_ITS | Data Portability ---
Author Organization [place] [facility] [employer], Main Office Address [address] [place] [address] Care Team Providers Care Gas Plumber Name Role Phone SHARIFA LIMON Banking Teacher [phone] Assessment No assessment recorded. Plan of Treatment Reminders Order Date Submit Date Provider Last Modified By Organization Details Last Modified Time Details Appointments None record ed. Lab None record ed. Referral None record ed. Procedures None record ed. Surgeries None record ed. Imaging None record ed. Medication Orders None record ed. Patient TargetsNo targets recorded. Patient InstructionsNo instructions recorded. Reason for Referral None Reported. Results Created Date Observation Date Name Description Value Unit Range Abnormal Flag Note LastModifiedBy Organization Detail LastModifiedTime 05/06/20 22 XR, wrist , 3 or more view No observ ation record ed. [id number] [facility] [place] [address] [facility] [address], [address], 07/31/2022 01:48:47 05/27/20 22 XR, wrist , 3 or more view No observ ation record ed. [id number] [facility] [place] [address] [facility] [address], [address], 07/31/2022 01:48:47 Result Notes None recorded. Problems Name Problem SNOMED Code Status Onset Date Resolution Date Notes Provider Name and Address Organization Details Recorded Time Closed fracture of distal end of radius 45171275 Active 2021 Not Available [facility] 3 01:48:03 Pain of right wrist 72655038112600 0 Active 2021 Not Available [facility] 3 01:48:03 Problem Notes None recorded. Procedures Surgical History None recorded. Imaging Results Imaging Date Name Status LastModified by Organiz ation Details LastModified Time 05/27/2022 XR, wrist, 3 or more view completed [id number] [facility] [place] [address], [place], [address], 07/31/2022 01:48:47 05/06/2022 XR, wrist, 3 or more view completed [id number] [facility] [place] [address], [place], [address], 07/31/2022 01:48:47 Procedure Notes None recorded. Medical Equipment None Reported. Medications Name Sig Start Date Stop Date Status Note LastModified by Organization Details LastModified Time azithromycin 250 mg tablet TAKE 2 TABLETS BY MOUTH FOR 1 DAY THEN TAKE 1 TABLET BY MOUTH DAILY FOR 4 DAYS DIRECTED active Not Available Not Available Not Available benzonatate 200 mg capsule TAKE 1 CAPSULE BY MOUTH THREE TIMES DAILY NEEDED FOR COUGH active Not Available Not Available No t Available phenytoin 50 mg chewable tablet active Not Available Not Available Not Available tramadol 50 mg tablet TAKE 1 TABLET BY MOUTH EVERY 8 HOURS NEEDED active Not Available Not Available No t Available Kenalog 10 mg/mL suspension for injection In office injection administere d by the provider active [facility]: 0003- 0494- 20 Not Available Not Available Not Available benzonatate 100 mg capsule TAKE 1 CAPSULE BY MOUTH EVERY 8 HOURS NEEDED active Not Available Not Available No t Available methylpredni solone 4 mg tablets in a dose pack TAKE DIRECTED active Not Available Not Available No t Available Dilantin Extended 100 mg capsule active Not Available Not Available N ot Available ropivacaine (PF) 5 mg/mL (0.5 %) injection solution Take 2 mg by injection route. active Not Available Not Available No t Available Vitals Date Recorded Body mass index (BMI) Body height Body weight Provider Name and Address Organization Details Last Updated DateTime 05/27/2022 25 kg/m2 134.62 cm 81343.24 g Not Available [facility] 07/31/2022 01:47:41 Date Recorded Body mass index (BMI) Body height Pain severity - 0-10 verbal numeric rating [Score] - Reported Body weight Provider Name and Address Organization Details Last Updated DateTime 06/17/2022 26.3 kg/m2 134.62 cm 4 00444.2 g Not Available [facility] 07/31/2022 01:47:41 Date Recorded Body mass index (BMI) Body height Body weight Provider Name and Address Organization Details Last Updated DateTime 07/01/2022 25.5 kg/m2 134.62 cm 36058.42 g Not Available [facility] 07/31/2022 01:47:41 Date Recorded Body mass index (BMI) Body height Pain severity - 0-10 verbal numeric rating [Score] - Reported Body weight Provider Name and Address Organization Details Last Updated DateTime 07/15/2022 26.3 kg/m2 134.62 cm 2 44833.2 g Not Available [facility] 07/31/2022 01:47:41 Date Recorded Body height Body mass index (BMI) Body weight Provider Name and Address Organization Details Last Updated DateTime 08/26/2022 148.59 cm 23.2 kg/m2 65184.94 g MERT Doshi [place] [facility] [email or web address] [facility] 08/26/2022 15:27:10 Social History Question Answer Notes LastModified by Organizat ion Details LastModified Time Tobacco Smoking Status Unknown If Ever Smoked Not Available [facility] 07/31/2022 01:47:12 What Is Your Level Of Alcohol Consumption? None [id number] Information not available 07/31/2022 What Was The Date Of Your Most Recent Tobacco Screening? 04/15/2022 [id number] Information not available 07/31/2022 Sex: Unknown Functional Status None recorded. Mental Status None recorded. Family History Relationship Description Onset Age of this Age Resolved Age Notes LastModified by Organization Details LastModified Time Father Diabetes mellitus [id number] Not available 07/31/2022 01:47:35 Father Hypertensive disorder [id number] Not available 07/31/2022 01:47:35 Medical History Condition Response ARTHRITIS Y Gynecological HistoryNo gynecological history recorded. Obstetrics History GPAL:G 0 P 0 0 0 0 Past Encounters Encounter ID Performer Location Encounter Start Date Encounter Closed Date Diagnosis/Indication Diagnosis SNOMED-CT Code Diagnosis ICD10 Code Diagnosis Note [id number] [facility] [place] [address] [place] [address] 04/15/2022 00:00:00 04/15/2022 16:34:45 [id number] [facility] [place] [address] [place] [address] 04/22/2022 00:00:00 04/22/2022 17:22:44 [id number] [facility] [place] [address] [place] [address] 05/06/2022 00:00:00 05/06/2022 16:26:55 [id number] [facility] [place] [address] [place] [address] 05/27/2022 00:00:00 05/27/2022 15:32:36 [id number] [facility] [place] [address] [place] [address] 06/17/2022 00:00:00 06/17/2022 16:52:53 [id number] [facility] [place] [address] [place] [address] 07/01/2022 00:00:00 07/01/2022 17:09:38 [id number] [facility] [place] [address] [place] [address] 07/15/2022 00:00:00 07/15/2022 17:07:54 [id number] Anderson Goff MD [facility] [place] [address] [place] [address] 08/26/2022 15:25:18 08/26/2022 15:36:12 Pain of right wrist [id number] 84110 M25.531 Closed fra cture of distal end of radius 17719622 S52.501D patient is doing well at this point we will release her to work with a 20 lb weight restrictio n. We will see her back if any problems at this point she is released at [facility] as of this point. Patient only has a small chance of recurrence of the carpal tunnel as it usually does improve as the swelling subsides following distal radius fractures. Health Concerns Section Related Observation LastModified by Organization Detai ls LastModified Time None Recorded Concern Status LastModified by Organization Details LastModified Time None Recorded Advance Directives Directive None Recorded Payers Encounter Date Sequence Insurance Name Policy Number Policy Aburto Covered Member ID Aburto Member ID Guarantor Name 08/26/2022 [facility] [employer] Notes Date Note Type Note Provider Name and Address Organization Details Recorded Time 08/26/2022 text/html patient had a sl ip and fall at work suffered a impacted fracture right distal radius treated conservatively as it was minimally angulated and shortened and due to her is 67 years of age study show that over the age of 65 these fractures tend to do fine even with a little bit of dorsal impaction and radial impaction. Patient developed a little bit of carpal tunnel syndrome due to the swelling that has responded with an injection of the tunnel and bracing. Patient did well with physical therapy and is able to lift push and pull 20 lb Anderson Goff MD [address] [place] [address], [place] [address], [place], [address], [place] [facility] [employer] [facility] 08/26/2022 18:39:51 OBGyn Episode No OBEpisode recorded.
--- OUTSIDE RECORDS SUMMARY | 2024-08-03 13:42 | XMS_ITS | Patient Health Summary ---
Author Organization [facility] [employer] Address [address] [place] [place] [address] Care Team Providers Care High School Sports Coach Name Role Phone Unavailable Primary Care Provider Unavailabl e Note from [facility],non-owned Affiliates and Associated Physician Practices is amultiple site organization consisting of ambulatory clinics and hospital sitesin [place], [place], [place] and [place]. This disclosure is being madepursuant to the Care Everywhere program and may not contain all information available regarding this patient. Last updated 18.[facility] [employer] Allergies No known active allergies Medications * Be aware that medications may not be up to date on this document. Alwaysverify current medications with the patient. * Phenytoin (DILANTIN PO) Social History Tobacco Use Types Packs/Day Years [...] Mass Index 25.75 09/09/2018 4:41 PM CDT Procedures * DERMATOPATHOLOGY(Performed 02/04/2012) Results * PATHOLOGY TISSUE FOR DERMATOLOGY (02/04/2012 12:00 AM CDT) Result CASE: [id number] PATIENT: HERMELINDA HERRON PATHOLOGIC DIAGNOSIS: A. Left forehead: BASAL CELL CARCINOMA, NODULAR TYPE B. Left chest: BASAL CELL CARCINOMA, NODULAR TYPE CLINICAL DATA: A-B: R/O BCC. GROSS DESCRIPTION: A: Received is one formalin filled container labeled with the patient's name and designated left forehead. The specimen consists of a shave biopsy measuring 7x3x1 mm. Jar 0. B: Received is one formalin filled container labeled with the patient's name and designated left chest. The specimen consists of a shave biopsy measuring 10x8x2 mm. Jar 0. MICROSCOPIC DESCRIPTION: SPECIMEN A: Within the dermis there are aggregates of basaloid cells with a high nuclear to cytoplasmic ratio and peripheral palisading. SPECIMEN B: Within the dermis there are aggregates of basaloid cells with a high nuclear to cytoplasmic ratio and peripheral palisading. Final Diagnosis performed by Angela Smith M.D. Electronically signed 02/09/2012 2:59:36PM [facility] Comment: Performed at: Dermatopathology Laboratory [facility] - Department of Dermatology [address] [place] [address], Room [address] [place] [address] Phone number: [phone] Toll Free: [phone] FAX: [phone] 02/04/2012 02/06/2012 Historical Provider LAB - PATHOLOGY/C YTOLOGY ORDERABLES [facility] [address] [place] [address]. 5th Floor Lab B [address] [phone]
[2024-08-03 14:10] LABS: Troponin I < 0.012 ng/mL (0.000-0.034)
--- OUTSIDE RECORDS SUMMARY | 2024-08-03 14:22 | XMS_ITS | Clinical Summary ---
Author Organization [facility] Address [address] [place] [address] Phone Care Team Providers Care Kier Tender Name Role Phone Annelise Vaz MD Primary Care Provider [phone] Allergies No known active allergies Medications Dilantin [...] Data STL ABSTRACTION Provider, Abstract 05/18/2024 Telephone [facility] Neurology [address] [place] [address] Elsa Alfaro MD Results 05/17/2024 Orders Only [facility] Neurology [address] [address] [place] Nonintractable epilepsy without [...] on file Legal Sex Female 5:00 PM POULTRY BUYER Gender Identity Not on file Sexual Orientation Not on file Last Filed Vital Signs Vital Sign Reading Time Taken Comments Blood Pressure 129/68 02/05/2024 9:01 AM CDT Pulse 68 02/05/2024 9:01 AM CDT Temperature 36.7 C (98.1 F) 06/12/2014 1:09 PM POULTRY BUYER Respiratory Rate 16 09/17/2020 10:29 AM CDT [...] Description 02/03/2025 10:30 AM CDT Office Visit [facility] Neurology [address] [address] [place] [address] [address] Health Maintenance Due Date Last [...] PHENYTOIN LEVEL, TOTAL Routine 05/17/2024 11:57 AM POULTRY BUYER Nonintractable epilepsy without status epilepticus, unspecified epilepsy type ([facility]) from Last 3 Months Results * PHENYTOIN LEVEL, TOTAL (05/17/2024 11:57 AM POULTRY BUYER) Blood 05/17/2024 11:5 7 AM POULTRY BUYER us Elsa Alfaro MD CHEMISTRY ORDERABLES Final Res ult [facility] [address] [place] [address] from Last 3 Months Insurance MEDICARE PART A AND B FLY MCKOY AHA [place] [id number] Advance Directives For more information, please contact: [phone] * Full Code (Latest Code Status on File) Date Activated Date Inactivated Comments 06/08/2014 7:42 PM 06/12/2014 8:00 PM Care Teams Kier Tender Relationship Specialty Start Date End Date Annelise Vaz MD [address] [place] [phone] PCP - General Family Practice 02/05/24
--- OUTSIDE RECORDS SUMMARY | 2024-08-03 14:22 | XMS_ITS | Patient Health Summary ---
Author Organization [facility] [employer] Address [address] [facility] [place] [address] Care Team Providers Care Surgery Aid Name Role Phone Unavailable Primary Care Provider Unavailabl e Note from [facility],non-owned Affiliates and Associated Physician Practices is amultiple site organization consisting of ambulatory clinics and hospital sitesin [place], [place], [place] and [place]. This disclosure is being madepursuant to the Care Everywhere program and may not contain all information available regarding this patient. Last updated 18.[facility] [employer] Allergies No known active allergies Medications * [...] DERMATOLOGY (02/04/2012 12:00 AM CDT) Result CASE: [id number] PATIENT: HERMELINDA HERRON PATHOLOGIC DIAGNOSIS: A. Left [...] Angela Smith M.D. Electronically signed 02/09/2012 2:59:36PM [facility] Comment: Performed at: Dermatopathology Laboratory [facility] - Department of Dermatology [address] [place] [address], [address] [place] [address] Phone number: [phone] Toll Free: [phone] FAX: [phone] 02/04/2012 02/06/2012 Historical Provider LAB - PATHOLOGY/C YTOLOGY ORDERABLES [facility] [address] [place] [address]. 5th Floor Lab [address] [phone]
--- OUTSIDE RECORDS SUMMARY | 2024-08-03 14:22 | XMS_ITS | Referral Summary ---
Author Organization [facility] Address [address] [place] [address] Care Team Providers Care Replanter Name Role Phone Unavailable Primary Care Provider Unavailabl e Source Comments [facility],non-owned Affiliates and Associated Physician Practices is amultiple site organization consisting of ambulatory clinics and hospital sitesin [place], [place], [place] and [place]. This disclosure is being madepursuant to the Care Everywhere program and may not contain all information available regarding this patient. Last updated 18.[facility] [employer] Allergies No known active allergies Medications * [...]
--- OUTSIDE RECORDS SUMMARY | 2024-08-03 14:22 | XMS_ITS | Clinical Summary ---
Author Organization [facility] Address [address] [facility] [place] [address] Care Team Providers Care Hr Business Partner Consultant Name Role Phone Unavailable Primary Care Provider Unavailabl e Source Comments [facility] [employer],non-owned Affiliates and Associated Physician Practices is amultiple site organization consisting of ambulatory clinics and hospital sitesin [place], [place], [place] and [place]. This disclosure is being madepursuant to the Care Everywhere program and may not contain all information available regarding this patient. Last updated 18.[facility] [employer] Allergies No known active allergies Medications * [...]
--- NOTE | 2024-08-03 14:53 | P.CONGS_ITS ---
Assessment and Plan Assessment and plan (1) Small bowel obstruction: Code(s): K56.609 - Unspecified intestinal obstruction, unspecified as to partial versus complete obstruction Status: Acute Assessment and Plan: Patient presented with a 4-day history of chills and dry heaving, and developed low back pain and a firm bulge yesterday. CT evidence of a small bowel obstruction secondary to a left inguinal hernia. WBC count 15,000 and lactic acid 2.2. Unable to reduce the inguinal hernia in the ER. Discussed options with the patient in detail. We would recommend proceeding emergently for an open left inguinal hernia repair, possible bowel resection, by Dr. Jett under general anesthesia. Description of the procedure, risks, benefits, alternatives,, and expected recovery were discussed with the patient in detail. We discussed the possibility of bowel resection if the bowel appears ischemic. Patient agrees to proceed. NG tube placed in the ER. Will continue NG tube decompression, bowel rest, and IV fluids, and proceed to the OR urgently for surgical repair. (2) Incarcerated left inguinal hernia: Code(s): K40.30 - Unilateral inguinal hernia, with obstruction, without gangrene, not specified as recurrent Status: Acute Assessment and Plan: Proceed to the OR as discussed above. (3) EULALIO (acute kidney injury): Code(s): N17.9 - Acute kidney failure, unspecified Status: Acute Assessment and Plan: She has had poor oral intake over the past few days. Her creatinine was slightly elevated on admission without any known history of chronic kidney disease. This is likely related to dehydration. Continue IV fluids. Trend labs. Management per Hospitalist. Plan I have discussed the patient's case and plan of care with Dr. Jett. History of Present Illness Consult details Consult date: 08/03/24 Reason for consult: other (Incarcerated left inguinal hernia, small bowel obstruction) Requesting physician: Divine Farfan PA-C Narrative: This is a 69-year-old woman with PMH of seizures, who we have been asked to see in surgical consultation for an incarcerated inguinal hernia and small bowel obstruction. She reports an onset of chills and anorexia starting 3 days ago. Initially, she was concerned she had the flu and gave it time. Yesterday, she developed mid to lower diffuse back pain. It was severe enough she decided to go to the urgent care who referred her to the ED for evaluation. With further questioning, she did notice a left groin bulge yesterday for the first time, but denies any pain in this location or any abdominal pain leading up to her presentation here. No nausea or vomiting. She has not been passing any flatus and no bowel movement since 4 days ago. Workup in the ED showed CT evidence of a small bowel obstruction with transition point at a left inguinal hernia and right inguinal hernia containing ascites. Labs showed WBC count of 15,000, lactic acid 2.2. She had an NG tube placed in the ED and was started on IV Zosyn. Review of Systems 2 Review of Systems: All systems reviewed & are unremarkable except as noted in HPI and below PMFSH Past Medical History Medical History Nontoxic thyroid nodule Seizures Migraines Arthritis Surgical History Surgical History History of repair of hiatal hernia Laparoscopic Family History Family History Father Diabetes mellitus Diabetic neuropathy Mother Acute myocardial infarction Hypertension Son No problems noted. Social History Social History Smoking status: Former smoker Alcohol intake: current Alcohol use details: seldom; socially Substance use: never Substance use type: does not use Lack of Transportation: No Lack of Food: Never True Current Housing: I Have Housing Concerned About Future Housing: No Difficulty Paying Gas/Electric Bills: No Difficulty Paying for Meds: No Currently Unemployed: No Education: Trade/Vocational Certificate Difficulty w/ Childcare or Family Care: No Living arrangements: alone Spiritual care concerns: No Agree to blood products: Yes Meds Home Medications and Allergies Home Medications ?Medication ?Instructions ?Recorded ?Confirmed ?Type multivitamin 1 tablet PO DAILY 01/14/22 08/24/23 History triamcinolone acetonide 0.1 % 1 applic topical BID #15 grams 03/04/23 08/24/23 Rx topical cream phenytoin 50 mg chewable tablet 50 mg PO QPM #30 tabs 01/12/24 Rx (Dilantin Infatabs) phenytoin sodium extended 100 mg 100 mg PO .COMPLEX #180 caps 01/20/24 Rx capsule (Dilantin Extended) ondansetron HCl 8 mg tablet 8 mg PO Q8H PRN nausea and 08/01/24 Rx vomiting 3 days #10 tabs Allergies Allergy/AdvReac Type Severity Reaction Status Date / Time No Known Allergies Allergy Verified 08/03/24 12:46 Vital Signs Vital Signs - 24 hr 08/03/24 12:24 Temperature 98.0 F Pulse Rate 96 Respiratory Rate 20 Blood Pressure 150/86 H Pulse Oximetry 99 Oxygen Delivery Room Air Exam 2 Const: General: comfortable and no acute distress Nutritional Appearance: t hin and underweight Orientation/consciousness: patient oriented x3 HENMT: Head: normocephalic and atraumatic Ears: hearing grossly normal bilaterally Mouth: Yes moist mucous membranes Eyes: General: appearance normal, both eyes and all related structures P upils: Equal, round and reactive pupils present Neck: Neck: normal visual inspection and full ROM Resp: Effort & Inspection: no respiratory distress Auscultation: clear to auscultation bilaterally Cardio: Rate: regular rate Rhythm: regular rhythm Peripheral pulses: P eripheral pulses 2+ throughout GI: Inspection: distended GI Palp: Yes Firmness to palpation present (GI), Yes Tenderness to palpation present (GI) (diffusely), No Guarding due to palpation present (GI), Yes Hernia present (firm left inguinal hernia, unable to reduce, overlying skin appears normal) and No Rebound tenderness present P ercussion: Yes tympanic to percussion Auscultation: absent bowel sounds Skin: General skin exam: normal color Neuro: General: moves all extremities and no focal motor deficits Speech: n ormal speech Motor exam (neuro): 5/5 motor strength present throughout Extrem: General: normal to inspection and no edema Psych: Mental Status: mental status grossly normal Attitude: cooperative Insight: Good insight present (Psych) Judgement: Good judgement present (Psych) Results Labs 08/03/24 12:48 08/03/24 12:48 Labs: Abnormal lab results 08/03/24 Range/Units 12:48 WBC 15.7 H (4.5-10.0) K/mm3 Immature Gran % (Auto) 0.7 H (0-0.5) % Neut % (Auto) 90.4 H (45.5-73.1) % Lymph % (Auto) 2.1 L (18.3-44.2) % Baso % (Auto) 0.1 L (0.2-1.2) % Lymph # (Auto) 0.33 L (0.9-3.2) K/mm3 [place] # (Auto) 1.1 H (0.1-0.6) K/mm3 Abs Immat Gran (auto) 0.11 H (0.00-0.031) K/mm3 Absolute Neuts (auto) 14.2 H (1.3-6.7) K/mm3 Sodium 132 L (137-145) mmol/L Chloride 92 L (98-107) mmol/L Carbon Dioxide 21 L (22-30) mmol/L Anion Gap 19 H (4-12) mmol/L BUN 43 H (7-17) mg/dL Creatinine 1.34 H (0.7-1.0) mg/dL Estimated GFR 39 L (59 - ) Glucose 153 H (65-110) mg/dL Lactic Acid 2.2 H (0.7-2.0) mmol/L AST 56 H (14-36) U/L ALT 50 H (6-35) U/L Lipase 934 H (23-300) U/L Diabetes panel 08/03/24 Range/Units 12:48 Sodium 132 L (137-145) mmol/L Potassium 4.2 (3.4-5.0) mmol/L Chloride 92 L (98-107) mmol/L Carbon Dioxide 21 L (22-30) mmol/L BUN 43 H (7-17) mg/dL Creatinine 1.34 H (0.7-1.0) mg/dL Glucose 153 H (65-110) mg/dL Calcium 9.6 (8.4-10.2) mg/dL AST 56 H (14-36) U/L ALT 50 H (6-35) U/L Alkaline Phosphatase 118 (38-126) U/L Total Protein 8.0 (6.3-8.2) g/dL Albumin 4.9 (3.5-5.1) g/dL Calcium panel 08/03/24 Range/Units 12:48 Calcium 9.6 (8.4-10.2) mg/dL Albumin 4.9 (3.5-5.1) g/dL Pituitary panel 08/03/24 Range/Units 12:48 Sodium 132 L (137-145) mmol/L Potassium 4.2 (3.4-5.0) mmol/L Chloride 92 L (98-107) mmol/L Carbon Dioxide 21 L (22-30) mmol/L BUN 43 H (7-17) mg/dL Creatinine 1.34 H (0.7-1.0) mg/dL Glucose 153 H (65-110) mg/dL Calcium 9.6 (8.4-10.2) mg/dL Adrenal panel 08/03/24 Range/Units 12:48 Sodium 132 L (137-145) mmol/L Potassium 4.2 (3.4-5.0) mmol/L Chloride 92 L (98-107) mmol/L Carbon Dioxide 21 L (22-30) mmol/L BUN 43 H (7-17) mg/dL Creatinine 1.34 H (0.7-1.0) mg/dL Glucose 153 H (65-110) mg/dL Calcium 9.6 (8.4-10.2) mg/dL Total Bilirubin 1.2 (0.2-1.3) mg/dL AST 56 H (14-36) U/L ALT 50 H (6-35) U/L Alkaline Phosphatase 118 (38-126) U/L Total Protein 8.0 (6.3-8.2) g/dL Albumin 4.9 (3.5-5.1) g/dL All other labs normal. Imaging Additional studies: ITS Impressions Abdomen/Pelvis CT 08/03/24 13:46 IMPRESSION: 1. Left inguinal hernia containing small bowel with small bowel obstruction. 2. Right inguinal hernia containing ascites.
[2024-08-03] MEDS: PIPERACILLN/TAZ 3.375GM/NS50ML 3.375 GM/50 ML BAG IVPB (15:36)
[2024-08-03 15:57] LABS: Reflex Lactic Acid Yes or No Add Lactic
--- NOTE | 2024-08-03 16:08 | WPDHPUPDATE1 ---
History and Physical Update Update Date/Time: 08/03/24 16:08 History and Physical has been reviewed, including an updated exam of the patient. There are NO changes in the patient's condition. Risks, benefits, and alternatives have been discussed and questions answered. Patient agrees to proceed with procedure.
--- NOTE | 2024-08-03 16:29 | PC.NURSE ---
when walking in room, pt's NG tube coiled in her mouth. attempted to reinsert tube without success. PACU/OR made aware.
--- NOTE | 2024-08-03 16:46 | P.PNAN_ITS ---
Anes - Initial Pre Proc Eval Procedure: Operation Date: 08/03/24 17:30 Proposed Procedures p Open Left Incarcerated Inguinal Hernia Repair, Possible Mesh, - Matthias Jett MD s Possible Bowel Resection - Matthias Jett MD Date/Time: 08/03/24 16:46 Surgeon: Timbo Lund MD Pre Op Diagnosis: SBO, incarcerated L inguinal hernia, EULALIO Patient Data Age: 69 Gender: F Height: 1.42 m Weight: 45 kg Last Vital Signs Temp 36.7 C 08/03/24 12:24 Pulse 88 08/03/24 15:39 Resp 14 08/03/24 15:39 BP 137/81 08/03/24 15:39 Pulse Ox 100 08/03/24 15:39 O2 Del Method Room Air 08/03/24 12:24 Allergies Allergy/AdvReac Type Severity Reaction Status Date / Time No Known Allergies Allergy Verified 08/03/24 12:46 Home Medications ?Medication ?Instructions ?Recorded ?Confirmed ?Type multivitamin 1 tablet PO DAILY 01/14/22 08/24/23 History triamcinolone acetonide 0.1 % 1 applic topical BID #15 grams 03/04/23 08/24/23 Rx topical cream phenytoin 50 mg chewable tablet 50 mg PO QPM #30 tabs 01/12/24 Rx (Dilantin Infatabs) phenytoin sodium extended 100 mg 100 mg PO .COMPLEX #180 caps 01/20/24 Rx capsule (Dilantin Extended) ondansetron HCl 8 mg tablet 8 mg PO Q8H PRN nausea and 08/01/24 Rx vomiting 3 days #10 tabs Laboratory Tests 08/03/24 12:48 WBC 15.7 H K/mm3 (4.5-10.0) RBC 4.30 M/mm3 (4.2-5.4) Hgb 14.4 g/dL (12.0-15.0) Hct 42.5 % (37.0-47.0) MCV 98.8 fl (80-100) MCH 33.5 pg (26-34) MCHC 33.9 g/dl (32-36) RDW 13.3 % (11.5-14.5) Plt Count 249 k/mm3 (150-375) MPV 9.8 fl (7.4-10.4) Immature Gran % (Auto) 0.7 H % (0-0.5) Neut % (Auto) 90.4 H % (45.5-73.1) Lymph % (Auto) 2.1 L % (18.3-44.2) [place] % (Auto) 6.7 % (2.6-8.5) Eos % (Auto) 0.0 % (0-4.4) Baso % (Auto) 0.1 L % (0.2-1.2) Lymph # (Auto) 0.33 L K/mm3 (0.9-3.2) [place] # (Auto) 1.1 H K/mm3 (0.1-0.6) Eos # (Auto) 0.0 K/mm3 (0-0.3) Baso # (Auto) 0.0 K/mm3 (0.0-0.1) Abs Immat Gran (auto) 0.11 H K/mm3 (0.00-0.031) Absolute Neuts (auto) 14.2 H K/mm3 (1.3-6.7) Absolute Nucleated RBC 0.000 K/mm3 (0.0-0.012) Nucleated RBC % 0.0 % (0.0-0.2) Sodium 132 L mmol/L (137-145) Potassium 4.2 mmol/L (3.4-5.0) Chloride 92 L mmol/L (98-107) Carbon Dioxide 21 L mmol/L (22-30) Anion Gap 19 H mmol/L (4-12) BUN 43 H mg/dL (7-17) Creatinine 1.34 H mg/dL (0.7-1.0) Estim Creat Clear Calc Not Reportable Estimated GFR 39 L (59 - ) Glucose 153 H mg/dL (65-110) Lactic Acid 2.2 H mmol/L (0.7-2.0) Calcium 9.6 mg/dL (8.4-10.2) Total Bilirubin 1.2 mg/dL (0.2-1.3) AST 56 H U/L (14-36) ALT 50 H U/L (6-35) Alkaline Phosphatase 118 U/L (38-126) Troponin I < 0.012 ng/mL (0.000-0.034) Total Protein 8.0 g/dL (6.3-8.2) Albumin 4.9 g/dL (3.5-5.1) Lipase 934 H U/L (23-300) Patient hx anesthesia problems: none Family hx anesthesia problems: none Results Review: All pre-operative results and documents have been reviewed as part of the pre- operative evaluation. [facility] Past Medical History Medical History Nontoxic thyroid nodule Seizures Migraines Arthritis Surgical History Surgical History History of repair of hiatal hernia Laparoscopic Family History Family History Father Diabetes mellitus Diabetic neuropathy Mother Acute myocardial infarction Hypertension Son No problems noted. Social History Social History Smoking status: Former smoker Alcohol intake: current Alcohol use details: seldom; socially Substance use: never Substance use type: does not use Lack of Transportation: No Lack of Food: Never True Current Housing: I Have Housing Concerned About Future Housing: No Difficulty Paying Gas/Electric Bills: No Difficulty Paying for Meds: No Currently Unemployed: No Education: Trade/Vocational Certificate Difficulty w/ Childcare or Family Care: No Living arrangements: alone Spiritual care concerns: No Agree to blood products: Yes Anes - Eval Final PreProcedure Day of Procedure 08/03/24 16:46 Patient weight: normal Heart: regular rate and rhythm Lungs: clear to auscultation Airway: Mallampati scale class II Neurological: alert and oriented Last oral intake: >/= 8 hours ASA classification: III Emergent: yes Anesthetic plan: proceed Anesthesia type and monitoring: general ETT and standard monitoring Results Review: All pre-operative results and documents have been reviewed as part of the pre- operative evaluation. Informed Consent: The patient's anesthetic plan and its attendant risks and benefits were discussed with the patient/family/POA. Questions were solicited and answers provided to the satisfaction of the patient/family/POA.
[2024-08-03 16:59] LABS: Add Urine Microscopic? YES; Appearance Urine Clear (Clear); Bacteria Urine None Seen /hpf; Bilirubin Urine Negative (Negative); Blood Urine 1+ (Negative); Color Urine Yellow (Yellow); Glucose Urine UA Negative (Negative); Ketones Urine Trace mg/dL (Negative); Leukocyte Esterase Ur Negative LEU/UL (Negative); Nitrate Urine Negative (Negative); Non Pathogenic Casts 0-2; Protein Urine 1+ mg/dL (Negative); Specific Grav Ur > 1.045 (1.001-1.035); Squamous Epithelial Cell Urine None Seen /hpf (Few); Urobilinogen Urine 0.2 mg/dL (<2.0); WBC Urine 0-5 /hpf (0-3); pH Urine 5.5 (5.0-9.0)
[2024-08-03] MEDS: LACTATED RINGERS 1,000 ML 30 ML IV CONT ×2 (17:50→20:29)
[2024-08-03] MEDS: fentaNYL CITRATE INJ (*CRX) 100 MCG/2 ML VIAL 25 MCG IV PUSH ×4 (18:02→18:12)
[2024-08-03] MEDS: BUPIVACAINE/EPINEPHRINE 0.5% 50 ML VIAL 30 ML INFILTRATE (19:29)
[2024-08-03] MEDS: LIDO 1%/EPINEPHRINE 1:100,000 50 ML VIAL 30 ML INFILTRATE (19:30)
--- NOTE | 2024-08-03 20:41 | P.OP_ITS ---
Procedure Note - Detailed Date of Procedure 08/03/24 Pre-op Diagnosis SBO, incarcerated L inguinal hernia, EULALIO Post-op Diagnosis Other (Small-bowel obstruction secondary to incarcerated left femoral hernia, acute kidney injury) Procedure Performed Open incarcerated left femoral hernia repair without mesh Surgeon Matthias Jett MD Anesthesia General Indications Patient is a 69-year-old female who 4 days ago had nausea vomiting with retching Neff thought she had the flu. She actually improved but then about 1 to 2 days later started having increasing abdominal distension and worsening left groin pain. She presented to the emergency room earlier today with severe abdominal pain and some back pain. CT scan abdomen pelvis showed small-bowel obstruction with an incarcerated left inguinal hernia causing the small-bowel obstruction. No free air or perforation was noted. [place] [address]. Lactic acid level was 2.2. She presented for emergent left inguinal hernia repair and possible bowel resection. Findings The patient actually had a incarcerated left femoral hernia. A loop of small bowel was incarcerated within the femoral canal. Opening the hernia sac revealed a loop of small bowel which was a little dusky and ischemic but once I size the inguinal ligament to enlarge the femoral canal and relieve the constriction the color and this loop of small bowel improved and it seemed to be viable. No perforation the bowel was seen. It was reduced back into the abdomen through the femoral canal. Description of Procedure After informed consent was obtained patient was brought to the operating room where she was placed supine position and general endotracheal anesthesia was administered. Initially an orogastric tube was placed decompress the stomach. A Khanna catheter placed decompress the bladder. The abdomen and groin regions bilateral was then prepped and draped usual sterile fashion. She was given Zosyn for measured IV antibiotics. In the left groin she had a visible bulge without redness of the skin overlying the hernia. I made an oblique incision overlying the bulge with a scalpel dissected down through the dermis of the skin with a scalpel. The subcutaneous tissues I dissected through the subcutaneous tissues down through Deedee's fascia until I encountered the hernia sac. I then dissected down around the hernia sac and I reached the neck protruding out th rough the femoral canal. It was a tight constriction of the contents in the hernia sac. Utilizing a small right angle clamp I was then able to place the tip underneath the inguinal ligament at the femoral canal and then stop incise the inguinal ligament utilizing the right o'clock to protect the contents in the hernia sac. Once this was done the constriction on the hernia sac and the bowel was relieved. I then opened the hernia sac very carefully with scissors and a small amount of nonbloody ascites fluid was drained. The loop of small bowel within the hernia sac was mildly ischemic but did not appear to be necrotic. Once the constriction at the inguinal ligament through the femoral canal was relieved it improved in color. I then easily reduced the loop of small bowel back into the abdomen through the femoral space. The hernia sac was then closed with a 2-0 Vicryl suture and then reduced back through the femoral defect as well. I then placed my index finger through the defect and made sure there was no bowel directly underneath the defect. I did palpate the left femoral artery which was lateral to the defect. Because of the small bowel which was incarcerated within the femoral canal for an extended time I chose not to use a piece of mesh for the repair. The repair was done primarily with interrupted 0 Ethibond sutures. Four sutures were placed approximating the lacunar ligament and the Geraldo's ligament to the inguinal ligament to close the defect. A care was taken not to place the stitches into the left femoral vein or left femoral artery. The defect closed nicely with out any significant tension. I then irrigated out the incision sterile saline solution hemostasis was excellent. I then proceeded to place a 10 [place] round Beto drain into the subcutaneous tissues. Interrupted 2-0 Vicryl sutures then used to close subcutaneous tissues over the drain. This is then followed by layer of interrupted 3-0 Vicryl sutures the more superficial subcutaneous tissues. The skin edges were then approximated utilizing a running subcuticular 4 Monocryl suture. The drain was brought out through the lateral left lower quadrant abdominal wall. Secured at the skin level the 3-0 nylon suture. The drain was then placed after given a bulb suction. The patient tolerated the procedure well no complications. All sponges, needles, and instrument counts were correct at the end procedure. EBL was _10__cc. The patient was awakened and taken to recovery in stable and satisfactory condition. Implants None Estimated Blood Loss 10 Drains Yes (10 [place] Beto drain left groin region and subcu tissues) Packing No Pathology None sent Complications No immediate complications Condition Stable Disposition PACU [facility] Billing Surgery - Charge Forward: Surgery Billing
--- NOTE | 2024-08-03 20:50 | PM.IMHP ---
H&P: HPI History of Present Illness Date/Time: 08/03/24 20:50 Chief Complaint: Abdominal Pain Narrative: 69 y/o F presents here with abdominal pain with PMH of seizures, migraines, nontoxic thyroid nodules, and arthritis. The patient presents here on 08/03 from home for further evaluation of abdominal pain. The patient reports onset of nausea, vomiting, and chills on Thursday (07/31). She then developed back pain affecting her mid and lower back. The back pain prompted her to seek care. She initially sought care at [facility] where a XR was obtained which showed moderate gaseous distention of her stomach. Recommendation was made for further imaging and the patient was sent here for further evaluation. She denies any history of abdominal surgeries or bowel obstructions. She reports her last bowel movement was on Thursday, 07/31. Postop she is denying significant abdominal pain, nausea, vomiting, fever, chills, or body aches. Initial VS at presentation: 98? F, HR 96, RR 20, 150/86, and 99% on RA. ED workup showed: WBC 15.7, no anemia, sodium 132, creatinine 1.34 and GFR 39 (previously 0.63 and GFR 95 on 09/24/2023), lactic 2.2, initial troponin negative, mild bump in LFTs, lipase 934. CT of the abdomen/pelvis showed a left inguinal hernia containing small bowel with small bowel obstruction and a right inguinal hernia containing ascites. Review of Systems Review of Systems: All systems reviewed & are unremarkable except as noted in HPI and below PMFSH Past Medical History Medical History Nontoxic thyroid nodule Seizures Migraines Arthritis Surgical History Surgical History History of repair of hiatal hernia Laparoscopic Family History Family History Father Diabetes mellitus Diabetic neuropathy Mother Acute myocardial infarction Hypertension Son No problems noted. Social History Social History Smoking status: Former smoker Alcohol intake: current Alcohol use details: seldom; socially Substance use: never Substance use type: does not use Lack of Transportation: No Lack of Food: Never True Current Housing: I Have Housing Concerned About Future Housing: No Difficulty Paying Gas/Electric Bills: No Difficulty Paying for Meds: No Currently Unemployed: No Education: Trade/Vocational Certificate Difficulty w/ Childcare or Family Care: No Living arrangements: alone Spiritual care concerns: No Agree to blood products: Yes Meds Home Medications and Allergies Home Medications ?Medication ?Instructions ?Recorded ?Confirmed ?Type multivitamin 1 tablet PO DAILY 01/14/22 08/24/23 History triamcinolone acetonide 0.1 % 1 applic topical BID #15 grams 03/04/23 08/24/23 Rx topical cream phenytoin 50 mg chewable tablet 50 mg PO QPM #30 tabs 01/12/24 Rx (Dilantin Infatabs) phenytoin sodium extended 100 mg 100 mg PO .COMPLEX #180 caps 01/20/24 Rx capsule (Dilantin Extended) ondansetron HCl 8 mg tablet 8 mg PO Q8H PRN nausea and 08/01/24 Rx vomiting 3 days #10 tabs Allergies Allergy/AdvReac Type Severity Reaction Status Date / Time No Known Allergies Allergy Verified 08/03/24 12:46 Vital Signs Vital Signs - 24 hr 08/03/24 12:24 Temperature 98.0 F Pulse Rate 96 Respiratory Rate 20 Blood Pressure 150/86 H Pulse Oximetry 99 Oxygen Delivery Room Air Exam Const: General: comfortable and no acute distress Other: The patient is recumbent in a stretcher in the PACU. , female, elderly, modestly ill-appearing. +fatigue. HENMT: Face/Nose/Sinus: Normal nares present Mouth: Yes dry mucous membranes Other: NG in place. Eyes: General: appearance normal, both eyes and all related structures Sclera: sclerae normal Pupils: Equal, round and reactive pupils present EOM: EOMs intact bilaterally Resp: Effort & Inspection: normal respiratory effort Auscultation: clear to auscultation bilaterally Cardio: Rate: regular rate Rhythm: regular rhythm Other: S1-S2 present without murmur, rub, ectopy GI: Other: Abdomen firm, distended. Hypoactive bowel sounds in all quadrants. Drain in place, serosanguineous output. Skin: General skin exam: normal color and no rashes or lesions noted Wounds: no wounds Neuro: Speech: normal speech Motor exam (neuro): 5/5 motor strength present throughout Sensory Exam: normal sensation Other: A&O x4, mildly somnolent. Extrem: General: normal to inspection Psych: Mental Status: mental status grossly normal Affect: normal affect Other: Good insight and judgment, pleasant H&P: Results Labs Labs: Short CBC 08/03/24 Range/Units 12:48 WBC 15.7 H (4.5-10.0) K/mm3 Hgb 14.4 (12.0-15.0) g/dL Hct 42.5 (37.0-47.0) % Plt Count 249 (150-375) k/mm3 BMP 08/03/24 12:48 Sodium 132 L Potassium 4.2 Chloride 92 L Carbon Dioxide 21 L BUN 43 H Creatinine 1.34 H Glucose 153 H Calcium 9.6 Cardiac Enzymes 08/03/24 Range/Units 12:48 Troponin I < 0.012 (0.000-0.034) ng/mL Liver Function 08/03/24 Range/Units 12:48 Total Bilirubin 1.2 (0.2-1.3) mg/dL AST 56 H (14-36) U/L ALT 50 H (6-35) U/L Alkaline Phosphatase 118 (38-126) U/L Albumin 4.9 (3.5-5.1) g/dL Assessment and Plan Assessment and plan (1) Small bowel obstruction: Code(s): K56.609 - Unspecified intestinal obstruction, unspecified as to partial versus complete obstruction Status: Acute Assessment and Plan: - CT abdomen/pelvis: 1. Left inguinal hernia containing small bowel with small bowel obstruction. 2. Right inguinal hernia containing ascites. - left inguinal hernia unable to be physically reduced in ED - NG placed and confirmed the XR, placed on low intermittent suction - general surgery consulted, Ilir BHARDWAJ. see note. Underwent a open incarcerated left femoral hernia repair without mesh on 08/03 with Johnie WAGNER - bowel rest, NPO - IV fluids: 2L bolus -> 75 mL/hr. Monitor I&Os. - started on Zosyn on 08/03 - monitor white count and renal function (2) Incarcerated left inguinal hernia: Code(s): K40.30 - Unilateral inguinal hernia, with obstruction, without gangrene, not specified as recurrent Status: Acute Assessment and Plan: - see above (3) EULALIO (acute kidney injury): Code(s): N17.9 - Acute kidney failure, unspecified Status: Acute Assessment and Plan: - creatinine 1.34 and GFR 39 (previously 0.63 and GFR 95 on 09/24/2023) - trial IV fluids over the next 24 hours, if no improvement consult Nephrology and consider further workup - trend renal function - trend electrolytes, correct as needed - suspect EULALIO secondary to hypovolemia Plan Diet: NPO GI Prophylaxis: Pantoprazole IV DVT Prophylaxis: SCDs Lines: Peripheral Code Status: Quality VTE Prophylaxis VTE prophylaxis: mechanical ordered Hospitalist MIPS Advance Care Plan I have confirmed that the patient's Advanced Care Plan is present, code status is documented, or surrogate decision maker is listed in patient medical record.: Yes Medication Reconciliation I have utilized all available resources to obtain, update and review the patients current medications (includes all prescriptions, OTC, herbals, cannabis, and nutritional supplements).: Yes
--- NOTE | 2024-08-03 21:52 | ADMGEN ---
This patient, Orquidea Kim, was admitted to Medical Room 343-01. Patient/family oriented to hospital policies and general routines including ID bracelet, bed and alarms, visiting hours, pain management, procedures, bathroom and other care routines, personal items, smoking policy, room service/diet, and visiting hours. Information on how to activate the Rapid Response Team has been discussed. Patient/Family are encouraged to report perceived risks to care and to ask questions if they do not understand what they are told or what they should do.
[2024-08-03] MEDS: DEXTROSE 5%/0.9% SOD CHL 1,000 ML 125 ML IV CONT (22:05)
[2024-08-03] MEDS: IBUPROFEN IV 800 MG/200 ML 800 MG/200 ML BAG 400 MG IVPB (22:05)
[2024-08-03] MEDS: HEPARIN SODIUM 5,000 UNITS/ML VIAL 5000 UNITS SUB-Q (22:05)
[2024-08-03 23:22] LABS: Lactic Acid 0.7 mmol/L (0.7-2.0)
[2024-08-04] VITALS (20 sets, daily range): BP systolic 126–148; BP diastolic 63–78; PULSE 67–98; RESP 16–22; TEMP 35.9–37; O2SAT 95–99
[2024-08-04] MEDS: MORPHINE SULFATE (*CRX) 4 MG/ML INJ IV PUSH (04:05)
[2024-08-04 05:19] LABS: Basophils Percent Auto 0.5 % (0.2-1.2); Eosinophils Percent Auto 0.2 % (0-4.4); Hematocrit 39.5 % (37.0-47.0); Hemoglobin 13.2 g/dL (12.0-15.0); Lymphocytes Absolute Auto 0.31 K/mm3 (0.9-3.2); Lymphocytes Percent Auto 7.2 % (18.3-44.2); Mean Corpuscular HGB Conc 33.4 g/dl (32-36); Mean Corpuscular Hemoglobin 33.2 pg (26-34); Mean Corpuscular Volume 99.2 fl (80-100); Mean Platelet Volume 9.5 fl (7.4-10.4); Monocytes Absolute Auto 0.4 K/mm3 (0.1-0.6); Neutrophils Absolute Auto 3.5 K/mm3 (1.3-6.7); Neutrophils Percent Auto 82.1 % (45.5-73.1); Platelet Count Result 151 k/mm3 (150-375); Red Blood Count 3.98 M/mm3 (4.2-5.4); Red Cell Distribution Width 13.3 % (11.5-14.5); White Blood Count 4.3 K/mm3 (4.5-10.0)
[2024-08-04 05:29] LABS: Alanine Aminotransferase 71 U/L (6-35); Albumin Level 3.9 g/dL (3.5-5.1); Alkaline Phosphatase 92 U/L (38-126); Anion Gap 11 mmol/L (4-12); Aspartate Amino Transferase 66 U/L (14-36); Bilirubin,Total 0.9 mg/dL (0.2-1.3); Blood Urea Nitrogen 39 mg/dL (7-17); Calcium 8.7 mg/dL (8.4-10.2); Carbon Dioxide 25 mmol/L (22-30); Chloride 97 mmol/L (98-107); Estimated Glomerular Filt Rate 49; Glucose 145 mg/dL (65-110); Potassium 4.7 mmol/L (3.4-5.0); Sodium 133 mmol/L (137-145)
[2024-08-04 05:31] LABS: Magnesium 1.9 mg/dL (1.6-2.3)
--- NOTE | 2024-08-04 09:50 | WPDPN ---
Progress Note: A&P Assessment and Plan (1) Small bowel obstruction: Code(s): K56.609 - Unspecified intestinal obstruction, unspecified as to partial versus complete obstruction Status: Acute Assessment and Plan: Was due to incarcerated left femoral hernia. That has now been repaired. The bowel at the time of surgery appeared to be viable. Appears to have morbid postoperative ileus picture at this time. Continue supportive management NG tube decompression. Ambulate out of bed to chair with therapy. Try to minimize use of narcotics. Her main complaint is back pain today and will try to use a lidocaine pain patch and minimize use of narcotics. Continue supportive management. Keep the patient in the IMU today. (2) Incarcerated left inguinal hernia: Code(s): K40.30 - Unilateral inguinal hernia, with obstruction, without gangrene, not specified as recurrent Status: Acute Assessment and Plan: Resolved after open left femoral hernia repair without mesh. (3) EULALIO (acute kidney injury): Code(s): N17.9 - Acute kidney failure, unspecified Status: Acute Assessment and Plan: Improving as creatinine is decreasing and she seems better hydrated. We will go ahead remove the Khanna catheter today as her urine output seems to be adequate. Continue supportive management. Subjective Date/time seen: 08/04/24 09:50 Interval history: Patient is now postoperative day 1 after open incarcerated left femoral hernia repair without mesh. This morning her main complaint is back pain and dry mouth. Nasogastric tube remains in place. Output is relatively minimal. She denies any flatus or bowel movements. KUB postoperative yesterday showed nasogastric tube tip in the stomach. White blood count is now 4500 down from 15,000 thousand preoperatively. Lactic acid level preoperatively was 2.2 and is now 1.0 this morning. Creatinine which was mildly elevated due to acute kidney injury dehydration was 1 point 3 but is down to 1.1 this morning. She seems to be better hydrated. Urine output seems to be adequate out. Khanna catheter still remains in place today. Exam GI: Other: The abdomen is still moderately distended. It is a little softer than preoperatively. Left groin incision is dry and intact without any redness. DAYNA drain in place with minimal output. Objective Data Vital Signs Vital Signs: Vital Signs - 24 hr 08/03/24 12:24 08/03/24 15:39 08/03/24 16:40 Temperature 36.7 C 36.2 C L Pulse Rate 96 88 89 Respiratory Rate 20 14 20 Blood Pressure 150/86 H 137/81 144/85 H Pulse Oximetry 99 100 97 Oxygen Delivery Room Air Room Air Oxygen Flow Rate 08/03/24 18:00 08/03/24 18:10 08/03/24 18:30 Temperature Pulse Rate Respiratory Rate Blood Pressure Pulse Oximetry 97 97 98 Oxygen Delivery Room Air Room Air Room Air Oxygen Flow Rate 08/03/24 20:29 08/03/24 20:40 08/03/24 20:55 Temperature 37.2 C Pulse Rate 85 87 87 Respiratory Rate 12 16 16 Blood Pressure 153/80 H 150/89 H 156/85 H Pulse Oximetry 100 100 100 Oxygen Delivery Simple Face Mask Simple Face Mask Room Air Oxygen Flow Rate 8 8 08/03/24 21:10 08/03/24 21:25 08/03/24 21:42 Temperature 36.7 C Pulse Rate 86 88 94 Respiratory Rate 17 16 17 Blood Pressure 145/85 H 144/85 H 151/74 H Pulse Oximetry 97 96 96 Oxygen Delivery Room Air Room Air Oxygen Flow Rate 08/03/24 22:00 08/03/24 23:46 08/04/24 00:00 Temperature 36.5 C Pulse Rate 93 90 89 Respiratory Rate 18 Blood Pressure 126/73 Pulse Oximetry 95 Oxygen Delivery Oxygen Flow Rate 08/04/24 00:15 08/04/24 00:15 08/04/24 02:00 Temperature Pulse Rate 90 81 Respiratory Rate 18 Blood Pressure 126/73 Pulse Oximetry 95 Oxygen Delivery Room Air Oxygen Flow Rate 08/04/24 03:39 08/04/24 03:56 08/04/24 04:00 Temperature 36.4 C Pulse Rate 83 83 84 Respiratory Rate 18 18 Blood Pressure 141/71 H Pulse Oximetry 99 99 Oxygen Delivery Room Air Oxygen Flow Rate 08/04/24 06:00 08/04/24 07:58 Temperature 36.8 C Pulse Rate 89 67 Respiratory Rate 16 Blood Pressure 128/78 Pulse Oximetry 99 Oxygen Delivery Oxygen Flow Rate Intake/Output Intake/Output: Intake & Output 08/01/24 08/02/24 08/03/24 08/04/24 23:59 23:59 23:59 23:59 Intake Total 1950 927.1 Output Total 45 200 Balance 1905 727.1 Meds/Results Medications: Active Medications Generic Name Dose Route Start Last Admin Trade Name Freq PRN Reason Stop Dose Admin Dextrose 12.5 gm 08/03/24 15:41 Dextrose 50% 25 Gm/50 Ml Syringe IV PUSH PRN PRN Hypoglycemia Protocol Glucagon 1 mg 08/03/24 15:41 Glucagon For Inj 1 Mg Vial IM PRN PRN Hypoglycemia Protocol Glucose 15 gm 08/03/24 15:41 Glucose Oral Gel 15 Gm Of Glucse In 37.5 Gm Tube PO PRN PRN Hypoglycemia Protocol Heparin Sodium (Porcine) 5,000 units 08/03/24 21:34 08/03/24 22:05 Heparin Sodium 5,000 Units/Ml Vial SUB-Q 5,000 units Q12HR MORGAN Administration Dextrose 1,000 mls @ 100 mls/hr 08/03/24 15:41 Dextrose 5% 1,000 Ml IVPB PRN PRN Hypoglycemia Protocol Ibuprofen 800 mg in 200 mls @ 400 mls/hr 08/03/24 22:00 08/03/24 22:35 Caldolor 800 Mg/200 Ml IVPB Infused Q8HR MORGAN Infusion Dextrose/Sodium Chloride 1,000 mls @ 125 mls/hr 08/03/24 21:34 08/04/24 05:30 Dextrose 5% Sodium Chloride 0.9% IV CONT 0 mls/hr .Q8H MORGAN Infusion Morphine Sulfate 4 mg 08/03/24 21:34 08/04/24 04:05 Morphine Sulfate (*Crx) 4 Mg/Ml Inj IV PUSH 4 mg Q4H PRN Administration Pain Rated 7-10 Ondansetron HCl 4 mg 08/03/24 15:38 Ondansetron Inj 4 Mg/2 Ml Vial IV PUSH Q4H PRN Nausea Pantoprazole Sodium 40 mg 08/04/24 09:00 Pantoprazole Sodium Iv 40 Mg Vial IV PUSH [facility] Radiology Results: ITS Impressions Abdomen/Pelvis CT 08/03/24 13:46 IMPRESSION: 1. Left inguinal hernia containing small bowel with small bowel obstruction. 2. Right inguinal hernia containing ascites. Abdomen X-Ray 08/03/24 20:51 IMPRESSION: Nasogastric tube in good position and ready for immediate use. Labs Labs: Laboratory Results - last 24 hr 08/03/24 08/03/24 08/03/24 12:48 16:48 23:06 WBC 15.7 H RBC 4.30 Hgb 14.4 Hct 42.5 MCV 98.8 MCH 33.5 MCHC 33.9 RDW 13.3 Plt Count 249 MPV 9.8 Immature Gran % (Auto) 0.7 H Neut % (Auto) 90.4 H Lymph % (Auto) 2.1 L [place] % (Auto) 6.7 Eos % (Auto) 0.0 Baso % (Auto) 0.1 L Lymph # (Auto) 0.33 L [place] # (Auto) 1.1 H Eos # (Auto) 0.0 Baso # (Auto) 0.0 Abs Immat Gran (auto) 0.11 H Absolute Neuts (auto) 14.2 H Absolute Nucleated RBC 0.000 Nucleated RBC % 0.0 Sodium 132 L Potassium 4.2 Chloride 92 L Carbon Dioxide 21 L Anion Gap 19 H BUN 43 H Creatinine 1.34 H Estim Creat Clear Calc Not Reportable Estimated GFR 39 L Glucose 153 H Lactic Acid 2.2 H 0.7 Calcium 9.6 Magnesium Total Bilirubin 1.2 AST 56 H ALT 50 H Alkaline Phosphatase 118 Troponin I < 0.012 Total Protein 8.0 Albumin 4.9 Lipase 934 H Urine Color Yellow Urine Appearance Clear Urine pH 5.5 Ur Specific [place] > 1.045 H Urine Protein 1+ H Urine Glucose (UA) Negative Urine Ketones Trace H Ur Blood (Man) 1+ H Urine Nitrate Negative Urine Bilirubin Negative Urine Urobilinogen 0.2 Leukocyte Esterase Rfl Negative Urine RBC 3-5 H Urine WBC 0-5 Ur Squamous Epith Cells None seen Urine Bacteria None seen Urine Casts 0-2 08/04/24 05:02 WBC 4.3 L RBC 3.98 L Hgb 13.2 Hct 39.5 MCV 99.2 MCH 33.2 MCHC 33.4 RDW 13.3 Plt Count 151 MPV 9.5 Immature Gran % (Auto) 0.0 Neut % (Auto) 82.1 H Lymph % (Auto) 7.2 L [place] % (Auto) 10.0 H Eos % (Auto) 0.2 Baso % (Auto) 0.5 Lymph # (Auto) 0.31 L [place] # (Auto) 0.4 Eos # (Auto) 0.0 Baso # (Auto) 0.0 Abs Immat Gran (auto) 0.00 Absolute Neuts (auto) 3.5 Absolute Nucleated RBC 0.000 Nucleated RBC % 0.0 Sodium 133 L Potassium 4.7 Chloride 97 L Carbon Dioxide 25 Anion Gap 11 BUN 39 H Creatinine 1.09 H Estim Creat Clear Calc Not Reportable Estimated GFR 49 L Glucose 145 H Lactic Acid 1.0 Calcium 8.7 Magnesium 1.9 Total Bilirubin 0.9 AST 66 H ALT 71 H Alkaline Phosphatase 92 Troponin I Total Protein 7.0 Albumin 3.9 Lipase Urine Color Urine Appearance Urine pH Ur Specific [place] Urine Protein Urine Glucose (UA) Urine Ketones Ur Blood (Man) Urine Nitrate Urine Bilirubin Urine Urobilinogen Leukocyte Esterase Rfl Urine RBC Urine WBC Ur Squamous Epith Cells Urine Bacteria Urine Casts
[2024-08-04] MEDS: DEXTROSE 5%/0.9% SOD CHL 1,000 ML 125 ML IV CONT ×2 (09:57→22:00)
[2024-08-04] MEDS: PANTOPRAZOLE SODIUM IV 40 MG VIAL IV PUSH (09:58)
[2024-08-04] MEDS: HEPARIN SODIUM 5,000 UNITS/ML VIAL 5000 UNITS SUB-Q ×2 (09:58→20:02)
[2024-08-04] MEDS: MORPHINE SULFATE (*CRX) 2 MG/ML INJ IV PUSH ×2 (12:30→18:20)
[2024-08-04] MEDS: PIPERACILLIN/TAZ 2.25G/NS 50ML 2.25 GM/50 ML BAG IVPB ×3 (12:34→21:47)
--- NOTE | 2024-08-04 12:49 | PCPTNOTE ---
Patient just assisted back to bed due to pain per RN [id number]. Will Follow
--- NOTE | 2024-08-04 17:06 | PM.IMPN ---
Progress Note: A&P Assessment and Plan (1) Small bowel obstruction: Code(s): K56.609 - Unspecified intestinal obstruction, unspecified as to partial versus complete obstruction Status: Acute Assessment and Plan: s/p herniorrhaphy, open incarcerated left femoral hernia repair without mesh on 08/03 with Johnie WAGNER - CT abdomen/pelvis: 1. Left inguinal hernia containing small bowel with small bowel obstruction. 2. Right inguinal hernia containing ascites. - left inguinal hernia unable to be physically reduced in ED - NG placed and confirmed the XR, placed on low intermittent suction - general surgery consulted, Ilir BHARDWAJ. see note. - continue NPO and IVF, Zosyn - Gen surgery following (2) Incarcerated left inguinal hernia: Code(s): K40.30 - Unilateral inguinal hernia, with obstruction, without gangrene, not specified as recurrent Status: Acute Assessment and Plan: - see above (3) EULALIO (acute kidney injury): Code(s): N17.9 - Acute kidney failure, unspecified Status: Acute Assessment and Plan: Resolving, likely from hypovolemia Cr 1.09 from 1.34 on IVF monitor Plan Diet: NPO GI Prophylaxis: Pantoprazole IV DVT Prophylaxis: Sq Lovenox Lines: Peripheral Code Status: Subjective Date/time seen: 08/04/24 17:06 Interval history: Comfortable at bedside Review of Systems Review of Systems: All systems reviewed & are unremarkable except as noted in HPI and below Exam Const: General: comfortable and no acute distress Other: The patient is recumbent in a stretcher in the PACU. , female, elderly, modestly ill-appearing. +fatigue. HENMT: Face/Nose/Sinus: Normal nares present Mouth: Yes dry mucous membranes Other: NG in place. Eyes: General: appearance normal, both eyes and all related structures Sclera: sclerae normal Pupils: Equal, round and reactive pupils present EOM: EOMs intact bilaterally Resp: Effort & Inspection: normal respiratory effort Auscultation: clear to auscultation bilaterally Cardio: Rate: regular rate Rhythm: regular rhythm Other: S1-S2 present without murmur, rub, ectopy GI: Other: Abdomen firm, distended. Hypoactive bowel sounds in all quadrants. Drain in place, serosanguineous output. Skin: General skin exam: normal color and no rashes or lesions noted Wounds: no wounds Neuro: Cranial nerves: Yes Equal, round and reactive pupils present Speech: normal speech Motor exam (neuro): 5/5 motor strength present throughout Sensory Exam: normal sensation Other: A&O x4, mildly somnolent. Extrem: General: normal to inspection Psych: Mental Status: mental status grossly normal Affect: normal affect Other: Good insight and judgment, pleasant Objective Data Vital Signs Vital Signs: Vital Signs - 24 hr 08/03/24 18:00 08/03/24 18:10 08/03/24 18:30 Temperature Pulse Rate Respiratory Rate Blood Pressure Pulse Oximetry 97 97 98 Oxygen Delivery Room Air Room Air Room Air Oxygen Flow Rate 08/03/24 20:29 08/03/24 20:40 08/03/24 20:55 Temperature 99.0 F Pulse Rate 85 87 87 Respiratory Rate 12 16 16 Blood Pressure 153/80 H 150/89 H 156/85 H Pulse Oximetry 100 100 100 Oxygen Delivery Simple Face Mask Simple Face Mask Room Air Oxygen Flow Rate 8 8 08/03/24 21:10 08/03/24 21:25 08/03/24 21:42 Temperature 98.1 F Pulse Rate 86 88 94 Respiratory Rate 17 16 17 Blood Pressure 145/85 H 144/85 H 151/74 H Pulse Oximetry 97 96 96 Oxygen Delivery Room Air Room Air Oxygen Flow Rate 08/03/24 22:00 08/03/24 23:46 08/04/24 00:00 Temperature 97.7 F Pulse Rate 93 90 89 Respiratory Rate 18 Blood Pressure 126/73 Pulse Oximetry 95 Oxygen Delivery Oxygen Flow Rate 08/04/24 00:15 08/04/24 00:15 08/04/24 02:00 Temperature Pulse Rate 90 81 Respiratory Rate 18 Blood Pressure 126/73 Pulse Oximetry 95 Oxygen Delivery Room Air Oxygen Flow Rate 08/04/24 03:39 08/04/24 03:56 08/04/24 04:00 Temperature 97.6 F Pulse Rate 83 83 84 Respiratory Rate 18 18 Blood Pressure 141/71 H Pulse Oximetry 99 99 Oxygen Delivery Room Air Oxygen Flow Rate 08/04/24 06:00 08/04/24 07:58 08/04/24 11:53 Temperature 98.3 F 96.7 F L Pulse Rate 89 67 88 Respiratory Rate 16 18 Blood Pressure 128/78 137/67 Pulse Oximetry 99 99 Oxygen Delivery Oxygen Flow Rate 08/04/24 15:23 08/04/24 15:55 Temperature 97.3 F L Pulse Rate 93 Respiratory Rate 22 H Blood Pressure 135/68 Pulse Oximetry 96 Oxygen Delivery Room Air Oxygen Flow Rate Intake/Output Intake/Output: Intake & Output 08/01/24 08/02/24 08/03/24 08/04/24 23:59 23:59 23:59 23:59 Intake Total 1950 927.1 Output Total 45 600 Balance 1905 327.1 Meds/Results Medications: Active Medications Generic Name Dose Route Start Last Admin Trade Name Freq PRN Reason Stop Dose Admin Dextrose 12.5 gm 08/03/24 15:41 Dextrose 50% 25 Gm/50 Ml Syringe IV PUSH PRN PRN Hypoglycemia Protocol Glucagon 1 mg 08/03/24 15:41 Glucagon For Inj 1 Mg Vial IM PRN PRN Hypoglycemia Protocol Glucose 15 gm 08/03/24 15:41 Glucose Oral Gel 15 Gm Of Glucse In 37.5 Gm Tube PO PRN PRN Hypoglycemia Protocol Heparin Sodium (Porcine) 5,000 units 08/03/24 21:34 08/04/24 09:58 Heparin Sodium 5,000 Units/Ml Vial SUB-Q 5,000 units Q12HR MORGAN Administration Dextrose 1,000 mls @ 100 mls/hr 08/03/24 15:41 Dextrose 5% 1,000 Ml IVPB PRN PRN Hypoglycemia Protocol Ibuprofen 800 mg in 200 mls @ 400 mls/hr 08/03/24 22:00 08/03/24 22:35 Caldolor 800 Mg/200 Ml IVPB Infused Q8HR MORGAN Infusion Dextrose/Sodium Chloride 1,000 mls @ 100 mls/hr 08/03/24 21:34 08/04/24 09:57 Dextrose 5% Sodium Chloride 0.9% IV CONT 125 mls/hr .Q10H MORGAN Administration Piperacillin Sod/Tazobactam Sod 2.25 gm in 50 mls @ 100 mls/hr 08/04/24 15:00 Zosyn 2.25 Gm/Ns 50 Ml IVPB Q8HR MORGAN Lidocaine 1 patch 08/04/24 10:25 Lidocaine 5% Patch TRANSDERM DAILY MORGAN Morphine Sulfate 2 mg 08/04/24 09:58 Morphine Sulfate (*Crx) 2 Mg/Ml Inj IV PUSH Q3H PRN Pain Rated 7-10 Ondansetron HCl 4 mg 08/03/24 15:38 Ondansetron Inj 4 Mg/2 Ml Vial IV PUSH Q4H PRN Nausea Pantoprazole Sodium 40 mg 08/04/24 09:00 08/04/24 09:58 Pantoprazole Sodium Iv 40 Mg Vial IV PUSH 40 mg QAM [facility] Administration Radiology Results: ITS Impressions Abdomen/Pelvis CT 08/03/24 13:46 IMPRESSION: 1. Left inguinal hernia containing small bowel with small bowel obstruction. 2. Right inguinal hernia containing ascites. Abdomen X-Ray 08/03/24 20:51 IMPRESSION: Nasogastric tube in good position and ready for immediate use. Labs Labs: Laboratory Results - last 24 hr 08/03/24 08/04/24 23:06 05:02 WBC 4.3 L RBC 3.98 L Hgb 13.2 Hct 39.5 MCV 99.2 MCH 33.2 MCHC 33.4 RDW 13.3 Plt Count 151 MPV 9.5 Immature Gran % (Auto) 0.0 Neut % (Auto) 82.1 H Lymph % (Auto) 7.2 L [place] % (Auto) 10.0 H Eos % (Auto) 0.2 Baso % (Auto) 0.5 Lymph # (Auto) 0.31 L [place] # (Auto) 0.4 Eos # (Auto) 0.0 Baso # (Auto) 0.0 Abs Immat Gran (auto) 0.00 Absolute Neuts (auto) 3.5 Absolute Nucleated RBC 0.000 Nucleated RBC % 0.0 Sodium 133 L Potassium 4.7 Chloride 97 L Carbon Dioxide 25 Anion Gap 11 BUN 39 H Creatinine 1.09 H Estim Creat Clear Calc Not Reportable Estimated GFR 49 L Glucose 145 H Lactic Acid 0.7 1.0 Calcium 8.7 Magnesium 1.9 Total Bilirubin 0.9 AST 66 H ALT 71 H Alkaline Phosphatase 92 Total Protein 7.0 Albumin 3.9 Quality VTE Prophylaxis VTE prophylaxis: mechanical ordered
[2024-08-04] MEDS: LIDOCAINE 5% PATCH 1 PATCH TRANSDERM (18:24)
[2024-08-04] MEDS: IBUPROFEN IV 800 MG/200 ML 800 MG/200 ML BAG 400 MG IVPB ×3 (18:24→21:48)
[2024-08-04] MEDS: PHENYTOIN SOD 250 MG/5 ML 225 MG IV PUSH (20:02)
[2024-08-04] MEDS: LORazepam INJ (*CRX) 2 MG/ML VIAL 0.25 MG IV PUSH (21:47)
[2024-08-05] VITALS (18 sets, daily range): BP systolic 102–135; BP diastolic 48–70; PULSE 85–103; RESP 16–20; TEMP 36.6–37.1; O2SAT 97–100
[2024-08-05] MEDS: MORPHINE SULFATE (*CRX) 2 MG/ML INJ IV PUSH ×3 (03:49→15:30)
[2024-08-05 04:42] LABS: Basophils Percent Auto 1.4 % (0.2-1.2); Hematocrit 39.2 % (37.0-47.0); Hemoglobin 13.1 g/dL (12.0-15.0); Immature Granulocyte Absolute 0.02 K/mm3 (0.00-0.031); Lymphocytes Absolute Auto 0.14 K/mm3 (0.9-3.2); Lymphocytes Percent Auto 6.7 % (18.3-44.2); Mean Corpuscular HGB Conc 33.4 g/dl (32-36); Mean Corpuscular Hemoglobin 33.9 pg (26-34); Mean Corpuscular Volume 101.3 fl (80-100); Mean Platelet Volume 9.6 fl (7.4-10.4); Monocytes Absolute Auto 0.4 K/mm3 (0.1-0.6); Monocytes Percent Auto 16.7 % (2.6-8.5); Neutrophils Absolute Auto 1.6 K/mm3 (1.3-6.7); Neutrophils Percent Auto 74.2 % (45.5-73.1); Platelet Count Result 130 k/mm3 (150-375); Red Blood Count 3.87 M/mm3 (4.2-5.4); Red Cell Distribution Width 13.5 % (11.5-14.5); White Blood Count 2.1 K/mm3 (4.5-10.0)
[2024-08-05 05:02] LABS: Alanine Aminotransferase 51 U/L (6-35); Albumin Level 3.9 g/dL (3.5-5.1); Alkaline Phosphatase 85 U/L (38-126); Anion Gap 13 mmol/L (4-12); Aspartate Amino Transferase 39 U/L (14-36); Bilirubin,Total 1.4 mg/dL (0.2-1.3); Blood Urea Nitrogen 26 mg/dL (7-17); Calcium 8.4 mg/dL (8.4-10.2); Carbon Dioxide 20 mmol/L (22-30); Chloride 104 mmol/L (98-107); Estimated Glomerular Filt Rate > 60; Glucose 141 mg/dL (65-110); Lactic Acid Reflex 1.7 mmol/L (0.7-2.0); Potassium 3.1 mmol/L (3.4-5.0); Sodium 137 mmol/L (137-145)
[2024-08-05] MEDS: IBUPROFEN IV 800 MG/200 ML 800 MG/200 ML BAG 400 MG IVPB ×3 (06:02→21:42)
[2024-08-05] MEDS: DEXTROSE 5%/0.9% SOD CHL 1,000 ML 125 ML IV CONT ×3 (06:02→22:00)
[2024-08-05] MEDS: PIPERACILLIN/TAZ 2.25G/NS 50ML 2.25 GM/50 ML BAG IVPB ×3 (06:10→21:43)
[2024-08-05] MEDS: PANTOPRAZOLE SODIUM IV 40 MG VIAL IV PUSH (08:29)
[2024-08-05] MEDS: LIDOCAINE 5% PATCH 1 PATCH TRANSDERM (08:29)
[2024-08-05] MEDS: ENOXAPARIN 40 MG/0.4 ML SYRINGE SUB-Q (08:29)
[2024-08-05] MEDS: PHENYTOIN SOD 250 MG/5 ML 225 MG IV PUSH ×2 (08:29→20:21)
[2024-08-05] MEDS: POTASSIUM CHLORIDE INJ 40 MEQ in SODIUM CHLORIDE 0.9% IV 500 ML 130 MEQ IVPB (12:14)
--- NOTE | 2024-08-05 14:02 | PCPTNOTE ---
Patient declined treatment this session. Patient worked with OT earlier today and sat in chair, patient back in bed now and reported she would like to rest at this time. Per RN patient is pretty worn out.
--- NOTE | 2024-08-05 15:52 | P.PNIM_ITS ---
Progress Note: A&P Assessment and Plan (1) Small bowel obstruction: Code(s): K56.609 - Unspecified intestinal obstruction, unspecified as to partial versus complete obstruction Status: Acute Assessment and Plan: s/p herniorrhaphy, open incarcerated left femoral hernia repair without mesh on 08/03 with Johnie WAGNER - CT abdomen/pelvis: 1. Left inguinal hernia containing small bowel with small bowel obstruction. 2. Right inguinal hernia containing ascites. - left inguinal hernia unable to be physically reduced in ED - NG placed and confirmed the XR, placed on low intermittent suction - continue NPO and IVF, Zosyn - advance diet per Gen surgery - Gen surgery following (2) Incarcerated left inguinal hernia: Code(s): K40.30 - Unilateral inguinal hernia, with obstruction, without gangrene, not specified as recurrent Status: Acute Assessment and Plan: - see above (3) EULALIO (acute kidney injury): Code(s): N17.9 - Acute kidney failure, unspecified Status: Acute Assessment and Plan: Resolving, likely from hypovolemia Cr 0.62 from 1.34 on IVF monitor Plan Diet: NPO GI Prophylaxis: Pantoprazole IV DVT Prophylaxis: Sq Lovenox Lines: Peripheral Code Status: Subjective Date/time seen: 08/05/24 15:52 Interval history: Comfortable at bedside Review of Systems Review of Systems: All systems reviewed & are unremarkable except as noted in HPI and below Exam Const: General: comfortable and no acute distress Other: The patient is recumbent in a stretcher in the PACU. , female, elderly, modestly ill-appearing. +fatigue. HENMT: Face/Nose/Sinus: Normal nares present Mouth: Yes dry mucous membranes Other: NG in place. Eyes: General: appearance normal, both eyes and all related structures Sclera: sclerae normal Pupils: Equal, round and reactive pupils present EOM: EOMs intact bilaterally Resp: Effort & Inspection: normal respiratory effort Auscultation: clear to auscultation bilaterally Cardio: Rate: regular rate Rhythm: regular rhythm Other: S1-S2 present without murmur, rub, ectopy GI: Other: Abdomen firm, distended. bowel sounds present, Drain in place, serosanguineous output. Skin: General skin exam: normal color and no rashes or lesions noted Wounds: no wounds Neuro: Cranial nerves: Yes Equal, round and reactive pupils present Speech: normal speech Motor exam (neuro): 5/5 motor strength present throughout Sensory Exam: normal sensation Other: A&O x4, mildly somnolent. Extrem: General: normal to inspection Psych: Mental Status: mental status grossly normal Affect: normal affect Other: Good insight and judgment, pleasant Objective Data Vital Signs Vital Signs: Vital Signs - 24 hr 08/04/24 15:55 08/04/24 16:00 08/04/24 16:00 Temperature 97.3 F L Pulse Rate 93 93 93 Respiratory Rate 22 H 22 H Blood Pressure 135/68 Pulse Oximetry 96 96 Oxygen Delivery Room Air 08/04/24 18:00 08/04/24 20:00 08/04/24 20:00 Temperature Pulse Rate 93 92 Respiratory Rate Blood Pressure Pulse Oximetry Oxygen Delivery Room Air 08/04/24 20:26 08/04/24 22:00 08/04/24 23:42 Temperature 98.6 F 97.7 F Pulse Rate 92 96 98 Respiratory Rate 20 16 Blood Pressure 148/71 H 132/63 Pulse Oximetry 97 99 Oxygen Delivery 08/05/24 00:00 08/05/24 00:00 08/05/24 02:00 Temperature Pulse Rate 88 95 Respiratory Rate Blood Pressure Pulse Oximetry Oxygen Delivery Room Air 08/05/24 04:00 08/05/24 04:00 08/05/24 04:09 Temperature 97.8 F Pulse Rate 101 H 102 H Respiratory Rate 18 Blood Pressure 135/58 L Pulse Oximetry 99 Oxygen Delivery Room Air 08/05/24 06:00 08/05/24 07:59 08/05/24 08:00 Temperature 98.6 F Pulse Rate 93 100 85 Respiratory Rate 20 Blood Pressure 115/68 Pulse Oximetry 98 Oxygen Delivery 08/05/24 10:00 08/05/24 10:08 08/05/24 12:00 Temperature Pulse Rate 96 88 Respiratory Rate Blood Pressure 113/61 Pulse Oximetry 99 Oxygen Delivery 08/05/24 12:06 08/05/24 14:00 Temperature 97.9 F Pulse Rate 94 98 Respiratory Rate 18 Blood Pressure 103/70 Pulse Oximetry 98 Oxygen Delivery Intake/Output Intake/Output: Intake & Output 08/02/24 08/03/24 08/04/24 08/05/24 23:59 23:59 23:59 23:59 Intake Total 1950 2433.8 1558.3 Output Total 45 600 200 Balance 1905 1833.8 1358.3 Meds/Results Medications: Active Medications Generic Name Dose Route Start Last Admin Trade Name Freq PRN Reason Stop Dose Admin Dextrose 12.5 gm 08/03/24 15:41 Dextrose 50% 25 Gm/50 Ml Syringe IV PUSH PRN PRN Hypoglycemia Protocol Enoxaparin Sodium 40 mg 08/05/24 09:00 08/05/24 08:29 Enoxaparin 40 Mg/0.4 Ml Syringe SUB-Q 40 mg DAILY MORGAN Administration Glucagon 1 mg 08/03/24 15:41 Glucagon For Inj 1 Mg Vial IM PRN PRN Hypoglycemia Protocol Glucose 15 gm 08/03/24 15:41 Glucose Oral Gel 15 Gm Of Glucse In 37.5 Gm Tube PO PRN PRN Hypoglycemia Protocol Dextrose 1,000 mls @ 100 mls/hr 08/03/24 15:41 Dextrose 5% 1,000 Ml IVPB PRN PRN Hypoglycemia Protocol Ibuprofen 800 mg in 200 mls @ 400 mls/hr 08/03/24 22:00 08/05/24 13:13 Caldolor 800 Mg/200 Ml IVPB 400 mls/hr Q8HR MORGAN Administration Dextrose/Sodium Chloride 1,000 mls @ 100 mls/hr 08/03/24 21:34 08/05/24 08:30 Dextrose 5% Sodium Chloride 0.9% IV CONT 125 mls/hr .Q10H MORGAN Administration Piperacillin Sod/Tazobactam Sod 2.25 gm in 50 mls @ 100 mls/hr 08/04/24 15:00 08/05/24 13:58 Zosyn 2.25 Gm/Ns 50 Ml IVPB 100 mls/hr Q8HR MORGAN Administration Lidocaine 1 patch 08/04/24 10:25 08/05/24 08:29 Lidocaine 5% Patch TRANSDERM 1 patch DAILY MORGAN Administration Morphine Sulfate 2 mg 08/04/24 09:58 08/05/24 15:30 Morphine Sulfate (*Crx) 2 Mg/Ml Inj IV PUSH 2 mg Q3H PRN Administration Pain Rated 7-10 Ondansetron HCl 4 mg 08/03/24 15:38 Ondansetron Inj 4 Mg/2 Ml Vial IV PUSH Q4H PRN Nausea Pantoprazole Sodium 40 mg 08/04/24 09:00 08/05/24 08:29 Pantoprazole Sodium Iv 40 Mg Vial IV PUSH 40 mg QAM MORGAN Administration Phenytoin Sodium 225 mg 08/04/24 21:00 08/05/24 08:29 Phenytoin Sod 250 Mg/5 Ml Vial (*Bkc) IV PUSH 225 mg Q12HR MORGAN Administration Radiology Results: ITS Impressions Abdomen/Pelvis CT 08/05/24 12:10 IMPRESSION: 1. Persistent distention of the stomach and multiple dilated loops of small bowel which progressively decreases in caliber without a clearly identifiable single discrete transition point and would favor residual postoperative ileus over obstruction. 2. Small left pleural effusion and small amount of ascites. 3. Nasogastric tube tip above level of the gastroesophageal junction. Recommend advancement by 10 cm. 4. Postoperative change of interval left inguinal hernia repair with subcutaneous surgical drain at the operative bed. Abdomen X-Ray 08/05/24 14:38 IMPRESSION: 1. Nasogastric tube tip in abnormal position in the distal esophagus. 2. Dilated small bowel and distended stomach, consistent with adynamic ileus. Labs Labs: Laboratory Results - last 24 hr 08/05/24 04:12 WBC 2.1 L RBC 3.87 L Hgb 13.1 Hct 39.2 MCV 101.3 H MCH 33.9 MCHC 33.4 RDW 13.5 Plt Count 130 L MPV 9.6 Immature Gran % (Auto) 1.0 H Neut % (Auto) 74.2 H Lymph % (Auto) 6.7 L [place] % (Auto) 16.7 H Eos % (Auto) 0.0 Baso % (Auto) 1.4 H Lymph # (Auto) 0.14 L [place] # (Auto) 0.4 Eos # (Auto) 0.0 Baso # (Auto) 0.0 Abs Immat Gran (auto) 0.02 Absolute Neuts (auto) 1.6 Absolute Nucleated RBC 0.000 Nucleated RBC % 0.0 Sodium 137 Potassium 3.1 L Chloride 104 Carbon Dioxide 20 L Anion Gap 13 H BUN 26 H D Creatinine 0.62 L Estim Creat Clear Calc Not Reportable Estimated GFR > 60 Glucose 141 H Lactic Acid 1.7 Calcium 8.4 Magnesium 2.0 Total Bilirubin 1.4 H AST 39 H ALT 51 H Alkaline Phosphatase 85 Total Protein 7.0 Albumin 3.9 Quality VTE Prophylaxis VTE prophylaxis: mechanical ordered
[2024-08-06] VITALS (17 sets, daily range): BP systolic 98–122; BP diastolic 42–64; PULSE 70–97; RESP 16–20; TEMP 36.3–37.2; O2SAT 98–99
[2024-08-06 05:17] LABS: Alanine Aminotransferase 35 U/L (6-35); Albumin Level 2.8 g/dL (3.5-5.1); Alkaline Phosphatase 70 U/L (38-126); Anion Gap 8 mmol/L (4-12); Aspartate Amino Transferase 32 U/L (14-36); Bilirubin,Total 0.7 mg/dL (0.2-1.3); Blood Urea Nitrogen 22 mg/dL (7-17); Calcium 7.9 mg/dL (8.4-10.2); Carbon Dioxide 22 mmol/L (22-30); Chloride 113 mmol/L (98-107); Estimated Glomerular Filt Rate > 60; Glucose 120 mg/dL (65-110); Potassium 3.2 mmol/L (3.4-5.0); Sodium 143 mmol/L (137-145)
[2024-08-06] MEDS: PIPERACILLIN/TAZ 2.25G/NS 50ML 2.25 GM/50 ML BAG IVPB ×2 (05:38→22:41)
[2024-08-06] MEDS: IBUPROFEN IV 800 MG/200 ML 800 MG/200 ML BAG 400 MG IVPB ×2 (05:38→22:40)
[2024-08-06 06:40] LABS: Basophils Percent Auto 2.4 % (0.2-1.2); Eosinophils Absolute Auto 0.1 K/mm3 (0-0.3); Eosinophils Percent Auto 4.7 % (0-4.4); Hematocrit 33.5 % (37.0-47.0); Immature Granulocyte Absolute 0.04 K/mm3 (0.00-0.031); Immature Granulocyte Percent A 2.4 % (0-0.5); Lymphocytes Percent Auto 11.8 % (18.3-44.2); Mean Corpuscular HGB Conc 32.8 g/dl (32-36); Mean Corpuscular Hemoglobin 33.4 pg (26-34); Mean Corpuscular Volume 101.8 fl (80-100); Mean Platelet Volume 9.9 fl (7.4-10.4); Monocytes Absolute Auto 0.3 K/mm3 (0.1-0.6); Monocytes Percent Auto 15.4 % (2.6-8.5); Neutrophils Absolute Auto 1.1 K/mm3 (1.3-6.7); Neutrophils Percent Auto 63.3 % (45.5-73.1); Platelet Count Result 99 k/mm3 (150-375); Red Blood Count 3.29 M/mm3 (4.2-5.4); Red Cell Distribution Width 13.6 % (11.5-14.5)
[2024-08-06 07:18] LABS: White Blood Count 1.7 K/mm3 (4.5-10.0)
--- NOTE | 2024-08-06 08:38 | P.PN_ITS ---
Progress Note: A&P Assessment and Plan (1) Small bowel obstruction: Code(s): K56.609 - Unspecified intestinal obstruction, unspecified as to partial versus complete obstruction Status: Acute Assessment and Plan: Resolved after open incarcerated left femoral hernia repair without mesh. Still has not had return of bowel function yet. Continue supportive management with NG tube decompression. (2) Incarcerated left inguinal hernia: Code(s): K40.30 - Unilateral inguinal hernia, with obstruction, without gangrene, not specified as recurrent Status: Acute Assessment and Plan: Resolved (3) Neutropenia associated with infection: Code(s): D70.3 - Neutropenia due to infection Status: Acute Assessment and Plan: White blood cells down to 1700 today. Platelet count is down to 90,000. Will monitor closely and if he continues to decrease then consider getting hematology consult. Most likely represents some bone marrow suppression from recent acute illness and infection. (4) Ileus, postoperative: Code(s): K91.89 - Other postprocedural complications and disorders of digestive system; K56.7 - Ileus, unspecified Status: Acute Assessment and Plan: Postoperative ileus from surgery and small bowel obstruction. Obstruction is now resolved. She is hypokalemic and due to GI losses from nasogastric decompression. Will need to replace her potassium and get her level above 3.8. (5) Hypokalemia due to excessive gastrointestinal loss of potassium: Code(s): E87.6 - Hypokalemia Status: Acute Assessment and Plan: Replace potassium today with IV boluses. Subjective Date/time seen: 08/06/24 08:38 Interval history: Patient feels much better today. Nasogastric tube which was coiled in her distal esophagus was replaced with an NG tube that went all the way into the stomach and is now decompressing her stomach. CT scan yesterday showed likely postoperative ileus with massive distention of the stomach with the NG tube not in the right position in the distal esophagus. She has had over 1L of NG tube output. The output is very bilious looking. No bowel movements or flatus yet. White blood cell count continues to decrease. Is actually low now 1700. Platelet count is down to 90,000. Will have to monitor very closely if he continues to decrease then she may have to go to neutropenic precautions and get Hematology consult. This could all be due to bone marrow suppression from acute illness. CT scan showed no evidence of free air or perforation of bowel. Did n ot show any ischemia the bowel either. She wants to get up out of bed the set up in a chair today. She has been afebrile and not tachycardic. Exam GI: Other: Abdomen is much less distended. Much less tender. Left groin incision is intact and dry. Drain in the subcutaneous tissues of the left groin is minimal output. Objective Data Vital Signs Vital Signs: Vital Signs - 24 hr 08/05/24 10:00 08/05/24 10:08 08/05/24 12:00 Temperature Pulse Rate 96 88 Respiratory Rate Blood Pressure 113/61 Pulse Oximetry 99 08/05/24 12:06 08/05/24 14:00 08/05/24 16:00 Temperature 36.6 C 36.6 C Pulse Rate 94 98 90 Respiratory Rate 18 16 Blood Pressure 103/70 117/62 Pulse Oximetry 98 97 08/05/24 16:00 08/05/24 18:00 08/05/24 20:00 Temperature Pulse Rate 102 H 97 102 H Respiratory Rate Blood Pressure Pulse Oximetry 08/05/24 20:08 08/05/24 22:00 08/05/24 23:56 Temperature 37.1 C 36.6 C Pulse Rate 93 103 H 88 Respiratory Rate 16 16 Blood Pressure 118/57 L 102/48 L Pulse Oximetry 97 100 08/06/24 00:00 08/06/24 02:00 08/06/24 04:00 Temperature Pulse Rate 87 90 83 Respiratory Rate Blood Pressure Pulse Oximetry 08/06/24 04:29 08/06/24 06:00 08/06/24 07:48 Temperature 37.2 C 36.3 C L Pulse Rate 89 81 80 Respiratory Rate 18 16 Blood Pressure 112/49 L 98/42 L Pulse Oximetry 99 98 Intake/Output Intake/Output: Intake & Output 08/03/24 08/04/24 08/05/24 08/06/24 23:59 23:59 23:59 23:59 Intake Total 1950 2433.8 3058.3 600 Output Total 45 600 1005 1175 Balance 1905 1833.8 2053.3 -575 Meds/Results Medications: Active Medications Generic Name Dose Route Start Last Admin Trade Name Freq PRN Reason Stop Dose Admin Dextrose 12.5 gm 08/03/24 15:41 Dextrose 50% 25 Gm/50 Ml Syringe IV PUSH PRN PRN Hypoglycemia Protocol Enoxaparin Sodium 40 mg 08/05/24 09:00 08/05/24 08:29 Enoxaparin 40 Mg/0.4 Ml Syringe SUB-Q 40 mg DAILY MORGAN Administration Glucagon 1 mg 08/03/24 15:41 Glucagon For Inj 1 Mg Vial IM PRN PRN Hypoglycemia Protocol Glucose 15 gm 08/03/24 15:41 Glucose Oral Gel 15 Gm Of Glucse In 37.5 Gm Tube PO PRN PRN Hypoglycemia Protocol Dextrose 1,000 mls @ 100 mls/hr 08/03/24 15:41 Dextrose 5% 1,000 Ml IVPB PRN PRN Hypoglycemia Protocol Ibuprofen 800 mg in 200 mls @ 400 mls/hr 08/03/24 22:00 08/06/24 05:38 Caldolor 800 Mg/200 Ml IVPB 400 mls/hr Q8HR MORGAN Administration Dextrose/Sodium Chloride 1,000 mls @ 100 mls/hr 08/03/24 21:34 08/05/24 22:00 Dextrose 5% Sodium Chloride 0.9% IV CONT 125 mls/hr .Q10H MORGAN Administration Piperacillin Sod/Tazobactam Sod 2.25 gm in 50 mls @ 100 mls/hr 08/04/24 15:00 08/06/24 05:38 Zosyn 2.25 Gm/Ns 50 Ml IVPB 100 mls/hr Q8HR MORGAN Administration Lidocaine 1 patch 08/04/24 10:25 08/05/24 08:29 Lidocaine 5% Patch TRANSDERM 1 patch DAILY MORGAN Administration Morphine Sulfate 2 mg 08/04/24 09:58 08/05/24 15:30 Morphine Sulfate (*Crx) 2 Mg/Ml Inj IV PUSH 2 mg Q3H PRN Administration Pain Rated 7-10 Ondansetron HCl 4 mg 08/03/24 15:38 Ondansetron Inj 4 Mg/2 Ml Vial IV PUSH Q4H PRN Nausea Pantoprazole Sodium 40 mg 08/04/24 09:00 08/05/24 08:29 Pantoprazole Sodium Iv 40 Mg Vial IV PUSH 40 mg QAM MORGAN Administration Phenytoin Sodium 225 mg 08/04/24 21:00 08/05/24 20:21 Phenytoin Sod 250 Mg/5 Ml Vial (*Bkc) IV PUSH 225 mg Q12HR MORGAN Administration Radiology Results: ITS Impressions Abdomen/Pelvis CT 08/05/24 12:10 IMPRESSION: 1. Persistent distention of the stomach and multiple dilated loops of small bowel which progressively decreases in caliber without a clearly identifiable si ngle discrete transition point and would favor residual postoperative ileus over obstruction. 2. Small left pleural effusion and small amount of ascites. 3. Nasogastric tube tip above level of the gastroesophageal junction. Recommend advancement by 10 cm. 4. Postoperative change of interval left inguinal hernia repair with subcutaneous surgical drain at the operative bed. Labs Labs: Laboratory Results - last 24 hr 08/06/24 08/06/24 04:39 06:24 WBC 1.7 L* RBC 3.29 L Hgb 11.0 L Hct 33.5 L MCV 101.8 H MCH 33.4 MCHC 32.8 RDW 13.6 Plt Count 99 L MPV 9.9 Immature Gran % (Auto) 2.4 H Neut % (Auto) 63.3 Lymph % (Auto) 11.8 L [place] % (Auto) 15.4 H Eos % (Auto) 4.7 H Baso % (Auto) 2.4 H Lymph # (Auto) 0.20 L [place] # (Auto) 0.3 Eos # (Auto) 0.1 Baso # (Auto) 0.0 Abs Immat Gran (auto) 0.04 H Absolute Neuts (auto) 1.1 L Absolute Nucleated RBC 0.000 Nucleated RBC % 0.0 % Immature Plt Fraction 2.0 Sodium 143 Potassium 3.2 L Chloride 113 H Carbon Dioxide 22 Anion Gap 8 BUN 22 H Creatinine 0.65 L Estim Creat Clear Calc Not Reportable Estimated GFR > 60 Glucose 120 H Calcium 7.9 L Magnesium 2.0 Total Bilirubin 0.7 AST 32 ALT 35 Alkaline Phosphatase 70 Total Protein 5.0 L Albumin 2.8 L
[2024-08-06] MEDS: POTASSIUM CHLORIDE INJ 40 MEQ in SODIUM CHLORIDE 0.9% IV 500 ML 130 MEQ IVPB (10:30)
[2024-08-06] MEDS: KCL 20 MEQ/D5/0.45% SOD CHL 1,000 ML 100 ML IV CONT (10:30)
[2024-08-06] MEDS: ENOXAPARIN 40 MG/0.4 ML SYRINGE SUB-Q (10:31)
[2024-08-06] MEDS: LIDOCAINE 5% PATCH 1 PATCH TRANSDERM (10:31)
[2024-08-06] MEDS: PHENYTOIN SOD 250 MG/5 ML 225 MG IV PUSH ×2 (10:32→20:15)
[2024-08-06] MEDS: PANTOPRAZOLE SODIUM IV 40 MG VIAL IV PUSH (10:32)
--- NOTE | 2024-08-06 14:24 | P.PNIM_ITS ---
Progress Note: A&P Assessment and Plan (1) Small bowel obstruction: Code(s): K56.609 - Unspecified intestinal obstruction, unspecified as to partial versus complete obstruction Status: Acute Assessment and Plan: s/p herniorrhaphy, open incarcerated left femoral hernia repair without mesh on 08/03 with Johnie WAGNER - CT abdomen/pelvis: 1. Left inguinal hernia containing small bowel with small bowel obstruction. 2. Right inguinal hernia containing ascites. - left inguinal hernia unable to be physically reduced in ED - NG placed and confirmed the XR, placed on low intermittent suction - continue NPO and IVF, Zosyn - advance diet per Gen surgery - Gen surgery following (2) Incarcerated left inguinal hernia: Code(s): K40.30 - Unilateral inguinal hernia, with obstruction, without gangrene, not specified as recurrent Status: Acute Assessment and Plan: - see above (3) EULALIO (acute kidney injury): Code(s): N17.9 - Acute kidney failure, unspecified Status: Acute Assessment and Plan: Resolving, likely from hypovolemia Cr 0.62 from 1.34 on IVF monitor Plan Diet: NPO GI Prophylaxis: Pantoprazole IV DVT Prophylaxis: Sq Lovenox Lines: Peripheral Code Status: Subjective Date/time seen: 08/06/24 14:24 Interval history: Comfortable at bedside bowel sounds less active than yesterday Review of Systems Review of Systems: All systems reviewed & are unremarkable except as noted in HPI and below Exam Const: General: comfortable and no acute distress Other: The patient is recumbent in a stretcher in the PACU. , female, elderly, modestly ill-appearing. +fatigue. HENMT: Face/Nose/Sinus: Normal nares present Mouth: Yes dry mucous membranes Other: NG in place. Eyes: General: appearance normal, both eyes and all related structures Sclera: sclerae normal Pupils: Equal, round and reactive pupils present EOM: EOMs intact bilaterally Resp: Effort & Inspection: normal respiratory effort Auscultation: clear to auscultation bilaterally Cardio: Rate: regular rate Rhythm: regular rhythm Other: S1-S2 present without murmur, rub, ectopy GI: Other: Abdomen firm, distended. bowel sounds present, Drain in place, serosanguineous output. Skin: General skin exam: normal color and no rashes or lesions noted Wounds: no wounds Neuro: Cranial nerves: Yes Equal, round and reactive pupils present Speech: normal speech Motor exam (neuro): 5/5 motor strength present throughout Sensory Exam: normal sensation Other: A&O x4, mildly somnolent. Extrem: General: normal to inspection Psych: Mental Status: mental status grossly normal Affect: normal affect Other: Good insight and judgment, pleasant Objective Data Vital Signs Vital Signs: Vital Signs - 24 hr 08/05/24 16:00 08/05/24 16:00 08/05/24 18:00 Temperature 97.9 F Pulse Rate 90 102 H 97 Respiratory Rate 16 Blood Pressure 117/62 Pulse Oximetry 97 08/05/24 20:00 08/05/24 20:08 08/05/24 22:00 Temperature 98.7 F Pulse Rate 102 H 93 103 H Respiratory Rate 16 Blood Pressure 118/57 L Pulse Oximetry 97 08/05/24 23:56 08/06/24 00:00 08/06/24 02:00 Temperature 97.8 F Pulse Rate 88 87 90 Respiratory Rate 16 Blood Pressure 102/48 L Pulse Oximetry 100 08/06/24 04:00 08/06/24 04:29 08/06/24 06:00 Temperature 98.9 F Pulse Rate 83 89 81 Respiratory Rate 18 Blood Pressure 112/49 L Pulse Oximetry 99 08/06/24 07:48 08/06/24 11:48 Temperature 97.4 F L 97.9 F Pulse Rate 80 84 Respiratory Rate 16 16 Blood Pressure 98/42 L 119/52 L Pulse Oximetry 98 99 Intake/Output Intake/Output: Intake & Output 08/03/24 08/04/24 08/05/24 08/06/24 23:59 23:59 23:59 23:59 Intake Total 1950 2433.8 3058.3 600 Output Total 45 600 1005 2375 Balance 1905 1833.8 9284.3 -6335 Meds/Results Medications: Active Medications Generic Name Dose Route Start Last Admin Trade Name Freq PRN Reason Stop Dose Admin Al Hydrox/Mg Hydrox/Simethicone 30 ml 08/06/24 08:45 08/06/24 10:32 Mag Hydrox/Al Hydrox/Simeth 30 Ml Udc PO Not Given Q8H MORGAN Bisacodyl 10 mg 08/06/24 08:51 Bisacodyl 10 Mg Suppository RECTAL QAM PRN Constipation Dextrose 12.5 gm 08/03/24 15:41 Dextrose 50% 25 Gm/50 Ml Syringe IV PUSH PRN PRN Hypoglycemia Protocol Enoxaparin Sodium 40 mg 08/05/24 09:00 08/06/24 10:31 Enoxaparin 40 Mg/0.4 Ml Syringe SUB-Q 40 mg DAILY MORGAN Administration Glucagon 1 mg 08/03/24 15:41 Glucagon For Inj 1 Mg Vial IM PRN PRN Hypoglycemia Protocol Glucose 15 gm 08/03/24 15:41 Glucose Oral Gel 15 Gm Of Glucse In 37.5 Gm Tube PO PRN PRN Hypoglycemia Protocol Dextrose 1,000 mls @ 100 mls/hr 08/03/24 15:41 Dextrose 5% 1,000 Ml IVPB PRN PRN Hypoglycemia Protocol Ibuprofen 800 mg in 200 mls @ 400 mls/hr 08/03/24 22:00 08/06/24 05:38 Caldolor 800 Mg/200 Ml IVPB 400 mls/hr Q8HR MORGAN Administration Piperacillin Sod/Tazobactam Sod 2.25 gm in 50 mls @ 100 mls/hr 08/04/24 15:00 08/06/24 05:38 Zosyn 2.25 Gm/Ns 50 Ml IVPB 100 mls/hr Q8HR MORGAN Administration Potassium Chloride/Dextrose/Sod Cl 1,000 mls @ 100 mls/hr 08/06/24 08:50 08/06/24 10:30 Kcl 20 Meq/D5/0.45% Sod Chl IV CONT 100 mls/hr .Q10H MORGAN Administration Lidocaine 1 patch 08/04/24 10:25 08/06/24 10:31 Lidocaine 5% Patch TRANSDERM 1 patch DAILY MORGAN Administration Morphine Sulfate 2 mg 08/04/24 09:58 08/05/24 15:30 Morphine Sulfate (*Crx) 2 Mg/Ml Inj IV PUSH 2 mg Q3H PRN Administration Pain Rated 7-10 Ondansetron HCl 4 mg 08/03/24 15:38 Ondansetron Inj 4 Mg/2 Ml Vial IV PUSH Q4H PRN Nausea Pantoprazole Sodium 40 mg 08/04/24 09:00 08/06/24 10:32 Pantoprazole Sodium Iv 40 Mg Vial IV PUSH 40 mg QAM MORGAN Administration Phenytoin Sodium 225 mg 08/04/24 21:00 08/06/24 10:32 Phenytoin Sod 250 Mg/5 Ml Vial (*Bkc) IV PUSH 225 mg Q12HR MORGAN Administration Radiology Results: ITS Impressions Abdomen/Pelvis CT 08/05/24 12:10 IMPRESSION: 1. Persistent distention of the stomach and multiple dilated loops of small bowel which progressively decreases in caliber without a clearly identifiable single discrete transition point and would favor residual postoperative ileus over obstruction. 2. Small left pleural effusion and small amount of ascites. 3. Nasogastric tube tip above level of the gastroesophageal junction. Recommend advancement by 10 cm. 4. Postoperative change of interval left inguinal hernia repair with subcutaneous surgical drain at the operative bed. Labs Labs: Laboratory Results - last 24 hr 08/06/24 08/06/24 04:39 06:24 WBC 1.7 L* RBC 3.29 L Hgb 11.0 L Hct 33.5 L MCV 101.8 H MCH 33.4 MCHC 32.8 RDW 13.6 Plt Count 99 L MPV 9.9 Immature Gran % (Auto) 2.4 H Neut % (Auto) 63.3 Lymph % (Auto) 11.8 L [place] % (Auto) 15.4 H Eos % (Auto) 4.7 H Baso % (Auto) 2.4 H Lymph # (Auto) 0.20 L [place] # (Auto) 0.3 Eos # (Auto) 0.1 Baso # (Auto) 0.0 Abs Immat Gran (auto) 0.04 H Absolute Neuts (auto) 1.1 L Absolute Nucleated RBC 0.000 Nucleated RBC % 0.0 % Immature Plt Fraction 2.0 Sodium 143 Potassium 3.2 L Chloride 113 H Carbon Dioxide 22 Anion Gap 8 BUN 22 H Creatinine 0.65 L Estim Creat Clear Calc Not Reportable Estimated GFR > 60 Glucose 120 H Calcium 7.9 L Magnesium 2.0 Total Bilirubin 0.7 AST 32 ALT 35 Alkaline Phosphatase 70 Total Protein 5.0 L Albumin 2.8 L Quality VTE Prophylaxis VTE prophylaxis: mechanical ordered
[2024-08-06 19:00] LABS: Hematocrit 33.2 % (37.0-47.0); Hemoglobin 10.9 g/dL (12.0-15.0)
[2024-08-06] MEDS: FAMOTIDINE 20 MG/2 ML VIAL IV PUSH (20:15)
[2024-08-07] VITALS (17 sets, daily range): BP systolic 100–147; BP diastolic 45–74; PULSE 69–92; RESP 14–24; TEMP 36.4–37.2; O2SAT 97–100
--- NOTE | 2024-08-07 01:57 | PC.NURSE ---
Daylight Savings Time For Daylight Savings Time Ending in the Fall - Clocks are moved back. For Daylight Savings Time Beginning in the Spring - Clocks are moved ahead. For [facility], the time of change occurs at 0200 hrs. Time is taken from the magnetic observer. This entry on the patient's chart recognizes the change in time reflected during documentation. Example: 2 entries for vital signs may be charted for 0200 hrs.
[2024-08-07 04:57] LABS: Alanine Aminotransferase 31 U/L (6-35); Albumin Level 2.4 g/dL (3.5-5.1); Alkaline Phosphatase 63 U/L (38-126); Anion Gap 7 mmol/L (4-12); Aspartate Amino Transferase 29 U/L (14-36); Bilirubin,Total 0.4 mg/dL (0.2-1.3); Blood Urea Nitrogen 21 mg/dL (7-17); Calcium 7.6 mg/dL (8.4-10.2); Carbon Dioxide 20 mmol/L (22-30); Chloride 116 mmol/L (98-107); Estimated Glomerular Filt Rate > 60; Glucose 102 mg/dL (65-110); Magnesium 1.9 mg/dL (1.6-2.3); Sodium 143 mmol/L (137-145)
[2024-08-07 05:02] LABS: Basophils Absolute Auto 0.1 K/mm3 (0.0-0.1); Basophils Percent Auto 1.4 % (0.2-1.2); Eosinophils Absolute Auto 0.1 K/mm3 (0-0.3); Eosinophils Percent Auto 2.6 % (0-4.4); Hematocrit 30.2 % (37.0-47.0); Hemoglobin 9.8 g/dL (12.0-15.0); Immature Granulocyte Absolute 0.05 K/mm3 (0.00-0.031); Immature Granulocyte Percent A 1.4 % (0-0.5); Lymphocytes Absolute Auto 0.51 K/mm3 (0.9-3.2); Lymphocytes Percent Auto 14.5 % (18.3-44.2); Mean Corpuscular HGB Conc 32.5 g/dl (32-36); Mean Corpuscular Hemoglobin 32.7 pg (26-34); Mean Corpuscular Volume 100.7 fl (80-100); Mean Platelet Volume 10.1 fl (7.4-10.4); Monocytes Absolute Auto 0.4 K/mm3 (0.1-0.6); Monocytes Percent Auto 9.9 % (2.6-8.5); Neutrophils Absolute Auto 2.5 K/mm3 (1.3-6.7); Neutrophils Percent Auto 70.2 % (45.5-73.1); Platelet Count Result 129 k/mm3 (150-375); Red Cell Distribution Width 13.7 % (11.5-14.5); White Blood Count 3.5 K/mm3 (4.5-10.0)
[2024-08-07] MEDS: IBUPROFEN IV 800 MG/200 ML 800 MG/200 ML BAG 400 MG IVPB ×3 (06:04→23:06)
[2024-08-07] MEDS: CENTRAL LINE FLUSH 10 ML IV PUSH ×2 (06:05→15:03)
[2024-08-07] MEDS: CENTRAL LINE FLUSH 20 ML IV PUSH (06:05)
[2024-08-07] MEDS: PIPERACILLIN/TAZ 2.25G/NS 50ML 2.25 GM/50 ML BAG IVPB ×3 (06:05→23:02)
[2024-08-07] MEDS: PANTOPRAZOLE SODIUM IV 40 MG VIAL IV PUSH (08:24)
[2024-08-07] MEDS: PHENYTOIN SOD 250 MG/5 ML 225 MG IV PUSH ×2 (08:24→21:37)
[2024-08-07] MEDS: ENOXAPARIN 40 MG/0.4 ML SYRINGE SUB-Q (08:24)
[2024-08-07] MEDS: FAMOTIDINE 20 MG/2 ML VIAL IV PUSH ×2 (08:25→20:18)
[2024-08-07] MEDS: LIDOCAINE 5% PATCH 1 PATCH TRANSDERM (08:25)
[2024-08-07] MEDS: KCL 20 MEQ/D5/0.45% SOD CHL 1,000 ML 100 ML IV CONT ×2 (08:26)
[2024-08-07] MEDS: POTASSIUM CHLORIDE INJ 40 MEQ in SODIUM CHLORIDE 0.9% IV 500 ML 130 MEQ IVPB (11:17)
--- NOTE | 2024-08-07 11:37 | P.PNGS_ITS ---
Progress Note: A&P Assessment and Plan (1) Small bowel obstruction: Code(s): K56.609 - Unspecified intestinal obstruction, unspecified as to partial versus complete obstruction Status: Acute Assessment and Plan: Resolved after open incarcerated left femoral hernia repair without mesh. Remove NG and start clear liquids. (2) Incarcerated left inguinal hernia: Code(s): K40.30 - Unilateral inguinal hernia, with obstruction, without gangrene, not specified as recurrent Status: Acute Assessment and Plan: Resolved (3) Neutropenia associated with infection: Code(s): D70.3 - Neutropenia due to infection Status: Acute Assessment and Plan: Slightly improved today. (4) Ileus, postoperative: Code(s): K91.89 - Other postprocedural complications and disorders of digestive system; K56.7 - Ileus, unspecified Status: Acute Assessment and Plan: Resolved (5) Hypokalemia due to excessive gastrointestinal loss of potassium: Code(s): E87.6 - Hypokalemia Status: Acute Assessment and Plan: Replace potassium today with IV boluses. Subjective Subjective Date/Time Seen: 08/07/24 11:37 Interval history: Bowels moving. No nausea/vomiting. Pain controlled. Exam GI: Inspection: non-distended, incision (intact with glue) and other (DAYNA serosanguinous) GI Palp: Yes Soft to palpation, No Tenderness to palpation present (GI) and No Guarding due to palpation present (GI) Percussion: Yes normal to percussion Auscultation: normal bowel sounds Objective Data Vital Signs Vital Signs: Vital Signs - 24 hr 08/06/24 11:48 08/06/24 12:00 08/06/24 14:00 Temperature 97.9 F Pulse Rate 84 86 83 Respiratory Rate 16 Blood Pressure 119/52 L Pulse Oximetry 99 08/06/24 15:52 08/06/24 16:00 08/06/24 18:00 Temperature 97.5 F L Pulse Rate 77 85 84 Respiratory Rate 20 Blood Pressure 108/51 L Pulse Oximetry 98 08/06/24 20:00 08/06/24 20:06 08/06/24 22:00 Temperature 97.9 F Pulse Rate 70 97 73 Respiratory Rate 20 Blood Pressure 122/64 Pulse Oximetry 08/07/24 00:00 08/07/24 00:13 08/07/24 03:00 Temperature 98.7 F Pulse Rate 70 76 83 Respiratory Rate 20 Blood Pressure 111/45 L Pulse Oximetry 97 08/07/24 03:22 08/07/24 04:00 08/07/24 06:00 Temperature 98.6 F Pulse Rate 75 74 73 Respiratory Rate 20 Blood Pressure 100/49 L Pulse Oximetry 100 08/07/24 08:00 Temperature 97.8 F Pulse Rate 70 Respiratory Rate 20 Blood Pressure 109/59 L Pulse Oximetry 100 Intake/Output Intake/Output: Intake & Output 08/04/24 08/05/24 08/06/24 08/08/24 23:59 23:59 23:59 00:59 Intake Total 2433.8 3058.3 2100 240 Output Total 600 1005 2825 141 Balance 1833.8 2053.3 -725 99 Meds/Results Medications: Active Medications Generic Name Dose Route Start Last Admin Trade Name Freq PRN Reason Stop Dose Admin Al Hydrox/Mg Hydrox/Simethicone 30 ml 08/06/24 08:45 08/07/24 08:27 Mag Hydrox/Al Hydrox/Simeth 30 Ml Udc PO Not Given Q8H MORGAN Bisacodyl 10 mg 08/06/24 08:51 Bisacodyl 10 Mg Suppository RECTAL QAM PRN Constipation Dextrose 12.5 gm 08/03/24 15:41 Dextrose 50% 25 Gm/50 Ml Syringe IV PUSH PRN PRN Hypoglycemia Protocol Enoxaparin Sodium 40 mg 08/05/24 09:00 08/07/24 08:24 Enoxaparin 40 Mg/0.4 Ml Syringe SUB-Q 40 mg DAILY MORGAN Administration Famotidine 20 mg 08/06/24 15:20 08/07/24 08:25 Famotidine 20 Mg/2 Ml Vial IV PUSH 20 mg Q12HR MORGAN Administration Glucagon 1 mg 08/03/24 15:41 Glucagon For Inj 1 Mg Vial IM PRN PRN Hypoglycemia Protocol Glucose 15 gm 08/03/24 15:41 Glucose Oral Gel 15 Gm Of Glucse In 37.5 Gm Tube PO PRN PRN Hypoglycemia Protocol Dextrose 1,000 mls @ 100 mls/hr 08/03/24 15:41 Dextrose 5% 1,000 Ml IVPB PRN PRN Hypoglycemia Protocol Ibuprofen 800 mg in 200 mls @ 400 mls/hr 08/03/24 22:00 03/09/25 06:04 Caldolor 800 Mg/200 Ml IVPB 400 mls/hr Q8HR MORGAN Administration Piperacillin Sod/Tazobactam Sod 2.25 gm in 50 mls @ 100 mls/hr 08/04/24 15:00 08/07/24 06:05 Zosyn 2.25 Gm/Ns 50 Ml IVPB 100 mls/hr Q8HR MORGAN Administration Potassium Chloride/Dextrose/Sod Cl 1,000 mls @ 100 mls/hr 08/06/24 08:50 08/07/24 08:26 Kcl 20 Meq/D5/0.45% Sod Chl IV CONT 100 mls/hr .Q10H MORGAN Administration Potassium Chloride 40 meq/ 520 mls @ 130 mls/hr 08/07/24 11:00 08/07/24 11:17 Sodium Chloride IVPB 08/07/24 14:59 130 mls/hr ONCE ONE Administration Lidocaine 1 patch 08/04/24 10:25 08/07/24 08:25 Lidocaine 5% Patch TRANSDERM 1 patch DAILY MORGAN Administration Morphine Sulfate 2 mg 08/04/24 09:58 08/05/24 15:30 Morphine Sulfate (*Crx) 2 Mg/Ml Inj IV PUSH 2 mg Q3H PRN Administration Pain Rated 7-10 Ondansetron HCl 4 mg 08/03/24 15:38 Ondansetron Inj 4 Mg/2 Ml Vial IV PUSH Q4H PRN Nausea Pantoprazole Sodium 40 mg 08/04/24 09:00 08/07/24 08:24 Pantoprazole Sodium Iv 40 Mg Vial IV PUSH 40 mg QAM MORGAN Administration Phenytoin Sodium 225 mg 08/04/24 21:00 08/07/24 08:24 Phenytoin Sod 250 Mg/5 Ml Vial (*Bkc) IV PUSH 225 mg Q12HR MORGAN Administration Sodium Chloride 20 ml 08/06/24 23:57 08/07/24 06:05 Central Line Flush IV PUSH 20 ml PRN PRN Administration after blood draws Sodium Chloride 10 ml 08/06/24 23:57 Central Line Flush IV PUSH PRN PRN with TPN bag changes Sodium Chloride 10 ml 08/07/24 06:00 08/07/24 06:05 Central Line Flush IV PUSH 10 ml Q8HR MORGAN Administration Radiology Results: ITS Impressions Abdomen/Pelvis CT 08/05/24 12:10 IMPRESSION: 1. Persistent distention of the stomach and multiple dilated loops of small bowel which progressively decreases in caliber without a clearly identifiable single discrete transition point and would favor residual postoperative ileus over obstruction. 2. Small left pleural effusion and small amount of ascites. 3. Nasogastric tube tip above level of the gastroesophageal junction. Recommend advancement by 10 cm. 4. Postoperative change of interval left inguinal hernia repair with subcutaneous surgical drain at the operative bed. Chest X-Ray 08/06/24 19:41 IMPRESSION: No acute cardiopulmonary pathology. Labs Labs: Laboratory Results - last 24 hr 08/06/24 08/07/24 18:54 04:37 WBC 3.5 L RBC 3.00 L Hgb 10.9 L 9.8 L Hct 33.2 L 30.2 L MCV 100.7 H MCH 32.7 MCHC 32.5 RDW 13.7 Plt Count 129 L MPV 10.1 Immature Gran % (Auto) 1.4 H Neut % (Auto) 70.2 Lymph % (Auto) 14.5 L [place] % (Auto) 9.9 H Eos % (Auto) 2.6 Baso % (Auto) 1.4 H Lymph # (Auto) 0.51 L [place] # (Auto) 0.4 Eos # (Auto) 0.1 Baso # (Auto) 0.1 Abs Immat Gran (auto) 0.05 H Absolute Neuts (auto) 2.5 Absolute Nucleated RBC 0.000 Nucleated RBC % 0.0 Sodium 143 Potassium 3.0 L Chloride 116 H Carbon Dioxide 20 L Anion Gap 7 BUN 21 H Creatinine 0.54 L Estim Creat Clear Calc Not Reportable Estimated GFR > 60 Glucose 102 Calcium 7.6 L Magnesium 1.9 Total Bilirubin 0.4 AST 29 ALT 31 Alkaline Phosphatase 63 Total Protein 5.0 L Albumin 2.4 L
--- NOTE | 2024-08-07 14:45 | P.PNIM_ITS ---
Progress Note: A&P Assessment and Plan (1) Small bowel obstruction: Code(s): K56.609 - Unspecified intestinal obstruction, unspecified as to partial versus complete obstruction Status: Acute Assessment and Plan: s/p herniorrhaphy, open incarcerated left femoral hernia repair without mesh on 08/03 with Johnie WAGNER - CT abdomen/pelvis: 1. Left inguinal hernia containing small bowel with small bowel obstruction. 2. Right inguinal hernia containing ascites. - left inguinal hernia unable to be physically reduced in ED - NG placed and confirmed the XR, placed on low intermittent suction Zosyn on Clear liquid diet, advance as tolerated - Gen surgery following (2) Incarcerated left inguinal hernia: Code(s): K40.30 - Unilateral inguinal hernia, with obstruction, without gangrene, not specified as recurrent Status: Acute Assessment and Plan: - see above (3) EULALIO (acute kidney injury): Code(s): N17.9 - Acute kidney failure, unspecified Status: Acute Assessment and Plan: Resolving, likely from hypovolemia Cr 0.62 from 1.34 on IVF monitor Plan Diet: NPO GI Prophylaxis: Pantoprazole IV DVT Prophylaxis: Sq Lovenox Lines: Peripheral Code Status: Subjective Date/time seen: 08/07/24 14:45 Interval history: Comfortable at bedside and passing stool Start clear liquids per Gen surgery Review of Systems Review of Systems: All systems reviewed & are unremarkable except as noted in HPI and below Exam Const: General: comfortable and no acute distress Other: The patient is recumbent in a stretcher in the PACU. , female, elderly, modestly ill-appearing. +fatigue. HENMT: Face/Nose/Sinus: Normal nares present Mouth: Yes dry mucous membranes Other: NG in place. Eyes: General: appearance normal, both eyes and all related structures Sclera: sclerae normal Pupils: Equal, round and reactive pupils present EOM: EOMs intact bilaterally Resp: Effort & Inspection: normal respiratory effort Auscultation: clear to auscultation bilaterally Cardio: Rate: regular rate Rhythm: regular rhythm Other: S1-S2 present without murmur, rub, ectopy GI: Other: Abdomen firm, distended. bowel sounds present, Drain in place, serosanguineous output. Skin: General skin exam: normal color and no rashes or lesions noted Wounds: no wounds Neuro: Cranial nerves: Yes Equal, round and reactive pupils present Speech: normal speech Motor exam (neuro): 5/5 motor strength present throughout Sensory Exam: normal sensation Other: A&O x4, mildly somnolent. Extrem: General: normal to inspection Psych: Mental Status: mental status grossly normal Affect: normal affect Other: Good insight and judgment, pleasant Objective Data Vital Signs Vital Signs: Vital Signs - 24 hr 08/06/24 14:00 08/06/24 15:52 08/06/24 16:00 Temperature 97.5 F L Pulse Rate 83 77 85 Respiratory Rate 20 Blood Pressure 108/51 L Pulse Oximetry 98 08/06/24 18:00 08/06/24 20:00 08/06/24 20:06 Temperature 97.9 F Pulse Rate 84 70 97 Respiratory Rate 20 Blood Pressure 122/64 Pulse Oximetry 08/06/24 22:00 08/07/24 00:00 08/07/24 00:13 Temperature 98.7 F Pulse Rate 73 70 76 Respiratory Rate 20 Blood Pressure 111/45 L Pulse Oximetry 97 08/07/24 03:00 08/07/24 03:22 08/07/24 04:00 Temperature 98.6 F Pulse Rate 83 75 74 Respiratory Rate 20 Blood Pressure 100/49 L Pulse Oximetry 100 08/07/24 06:00 08/07/24 08:00 08/07/24 08:00 Temperature 97.8 F Pulse Rate 73 70 72 Respiratory Rate 20 Blood Pressure 109/59 L Pulse Oximetry 100 08/07/24 10:00 08/07/24 12:00 08/07/24 12:00 Temperature 97.5 F L Pulse Rate 76 74 77 Respiratory Rate 24 H Blood Pressure 109/57 L Pulse Oximetry 99 08/07/24 14:00 Temperature Pulse Rate 82 Respiratory Rate Blood Pressure Pulse Oximetry Intake/Output Intake/Output: Intake & Output 08/04/24 08/05/24 08/06/24 08/08/24 23:59 23:59 23:59 00:59 Intake Total 2433.8 3058.3 2100 840 Output Total 600 1005 2825 141 Balance 1833.8 2053.3 -159 699 Meds/Results Medications: Active Medications Generic Name Dose Route Start Last Admin Trade Name Freq PRN Reason Stop Dose Admin Al Hydrox/Mg Hydrox/Simethicone 30 ml 08/06/24 08:45 08/07/24 08:27 Mag Hydrox/Al Hydrox/Simeth 30 Ml Udc PO Not Given Q8H MORGAN Bisacodyl 10 mg 08/06/24 08:51 Bisacodyl 10 Mg Suppository RECTAL QAM PRN Constipation Dextrose 12.5 gm 08/03/24 15:41 Dextrose 50% 25 Gm/50 Ml Syringe IV PUSH PRN PRN Hypoglycemia Protocol Enoxaparin Sodium 40 mg 08/05/24 09:00 08/07/24 08:24 Enoxaparin 40 Mg/0.4 Ml Syringe SUB-Q 40 mg DAILY MORGAN Administration Famotidine 20 mg 08/06/24 15:20 08/07/24 08:25 Famotidine 20 Mg/2 Ml Vial IV PUSH 20 mg Q12HR MORGAN Administration Glucagon 1 mg 08/03/24 15:41 Glucagon For Inj 1 Mg Vial IM PRN PRN Hypoglycemia Protocol Glucose 15 gm 08/03/24 15:41 Glucose Oral Gel 15 Gm Of Glucse In 37.5 Gm Tube PO PRN PRN Hypoglycemia Protocol Dextrose 1,000 mls @ 100 mls/hr 08/03/24 15:41 Dextrose 5% 1,000 Ml IVPB PRN PRN Hypoglycemia Protocol Ibuprofen 800 mg in 200 mls @ 400 mls/hr 08/03/24 22:00 08/07/24 06:04 Caldolor 800 Mg/200 Ml IVPB 400 mls/hr Q8HR MORGAN Administration Piperacillin Sod/Tazobactam Sod 2.25 gm in 50 mls @ 100 mls/hr 08/04/24 15:00 08/07/24 06:05 Zosyn 2.25 Gm/Ns 50 Ml IVPB 100 mls/hr Q8HR MORGAN Administration Potassium Chloride/Dextrose/Sod Cl 1,000 mls @ 100 mls/hr 08/06/24 08:50 08/07/24 08:26 Kcl 20 Meq/D5/0.45% Sod Chl IV CONT 100 mls/hr .Q10H MORGAN Administration Potassium Chloride 40 meq/ 520 mls @ 130 mls/hr 08/07/24 11:00 08/07/24 11:17 Sodium Chloride IVPB 08/07/24 14:59 130 mls/hr ONCE ONE Administration Lidocaine 1 patch 08/04/24 10:25 08/07/24 08:25 Lidocaine 5% Patch TRANSDERM 1 patch DAILY MORGAN Administration Morphine Sulfate 2 mg 08/04/24 09:58 08/05/24 15:30 Morphine Sulfate (*Crx) 2 Mg/Ml Inj IV PUSH 2 mg Q3H PRN Administration Pain Rated 7-10 Ondansetron HCl 4 mg 08/03/24 15:38 Ondansetron Inj 4 Mg/2 Ml Vial IV PUSH Q4H PRN Nausea Pantoprazole Sodium 40 mg 08/04/24 09:00 08/07/24 08:24 Pantoprazole Sodium Iv 40 Mg Vial IV PUSH 40 mg QAM MORGAN Administration Phenytoin Sodium 225 mg 08/04/24 21:00 08/07/24 08:24 Phenytoin Sod 250 Mg/5 Ml Vial (*Bkc) IV PUSH 225 mg Q12HR MORGAN Administration Sodium Chloride 20 ml 08/06/24 23:57 08/07/24 06:05 Central Line Flush IV PUSH 20 ml PRN PRN Administration after blood draws Sodium Chloride 10 ml 08/06/24 23:57 Central Line Flush IV PUSH PRN PRN with TPN bag changes Sodium Chloride 10 ml 08/07/24 06:00 08/07/24 06:05 Central Line Flush IV PUSH 10 ml Q8HR MORGAN Administration Radiology Results: ITS Impressions Abdomen/Pelvis CT 08/05/24 12:10 IMPRESSION: 1. Persistent distention of the stomach and multiple dilated loops of small bowel which progressively decreases in caliber without a clearly identifiable single discrete transition point and would favor residual postoperative ileus over obstruction. 2. Small left pleural effusion and small amount of ascites. 3. Nasogastric tube tip above level of the gastroesophageal junction. Recommend advancement by 10 cm. 4. Postoperative change of interval left inguinal hernia repair with subcutaneous surgical drain at the operative bed. Chest X-Ray 08/06/24 19:41 IMPRESSION: No acute cardiopulmonary pathology. Labs Labs: Laboratory Results - last 24 hr 08/06/24 08/07/24 18:54 04:37 WBC 3.5 L RBC 3.00 L Hgb 10.9 L 9.8 L Hct 33.2 L 30.2 L MCV 100.7 H MCH 32.7 MCHC 32.5 RDW 13.7 Plt Count 129 L MPV 10.1 Immature Gran % (Auto) 1.4 H Neut % (Auto) 70.2 Lymph % (Auto) 14.5 L [place] % (Auto) 9.9 H Eos % (Auto) 2.6 Baso % (Auto) 1.4 H Lymph # (Auto) 0.51 L [place] # (Auto) 0.4 Eos # (Auto) 0.1 Baso # (Auto) 0.1 Abs Immat Gran (auto) 0.05 H Absolute Neuts (auto) 2.5 Absolute Nucleated RBC 0.000 Nucleated RBC % 0.0 Sodium 143 Potassium 3.0 L Chloride 116 H Carbon Dioxide 20 L Anion Gap 7 BUN 21 H Creatinine 0.54 L Estim Creat Clear Calc Not Reportable Estimated GFR > 60 Glucose 102 Calcium 7.6 L Magnesium 1.9 Total Bilirubin 0.4 AST 29 ALT 31 Alkaline Phosphatase 63 Total Protein 5.0 L Albumin 2.4 L Quality VTE Prophylaxis VTE prophylaxis: mechanical ordered
[2024-08-07] MEDS: MAG HYDROX/AL HYDROX/SIMETH 30 ML UDC PO (17:15)
--- NOTE | 2024-08-07 19:14 | PC.NURSE ---
Pt reports feeling overly full. Consumed half a bowl of broth for dinner, approximately 150 ml. RR 32, O2 96% on RA, BP 110/64. Abdomen firm and distended. Bowel sounds active x 4 quads. Multiple bowel movements throughout day. Dr. Peguero made aware. New orders noted for KUB and NPO with ice chips.
[2024-08-07] MEDS: ONDANSETRON INJ 4 MG/2 ML VIAL IV PUSH (20:18)
[2024-08-07] MEDS: MORPHINE SULFATE (*CRX) 2 MG/ML INJ IV PUSH ×2 (20:32→23:43)
--- NOTE | 2024-08-07 20:44 | P.PNCROSS_ITS ---
Event Note Event Note Event Note: ouch
--- NOTE | 2024-08-07 20:44 | PM.EVENT ---
Event Note Event Note Event Note: ouch
--- NOTE | 2024-08-07 23:54 | PC.NURSE ---
NG placed in left nare to the depth of 48. Patient tolerated well. All patient and family questions answered.
--- NOTE | 2024-08-07 23:54 | PM.CCN ---
Critical Care Event Note Summary Code activated: Yes Narrative: Nurse called due to pain she having firm distended abdomen KUB showing severe gastric distention. NG tube in place. Will update surgery. CT chest abdomen pelvis ordered. P.o. meds switched to IV. Radiologist called with critical CT result of portal venous gas and pneumatosis Dr. Marielena merino updated by WRECKING [employer] ENGINE OPERATOR. Requesting lactic acid. NG coiled, not in stomach. Long discussion with family This case had a high probability of a clinically significant, sudden, or life threatening deterioration of this patient's condition which required my full and direct attention, intervention and personal management. Over 55 minute Critical care time: 30 - 74 mins
[2024-08-08] VITALS (49 sets, daily range): BP systolic 73–153; BP diastolic 43–103; PULSE 70–113; RESP 14–28; TEMP 35.8–37.6; O2SAT 92–100
--- NOTE | 2024-08-08 | ECHO_ITS ---
Patient Info Name: Orquidea Kim Age: 69 years : 1955 Gender: Female Ht: 57 in Wt: 120 lbs BSA: 1.50 m2 HR: 82 bpm BP: 90 / 48 mmHg Technical Quality: Good Exam Date: 08/08/2024 12:45 PM Exam Location: Echo Lab Patient Status: Inpatient Admit Date: 08/03/2024 Staff Ordering Physician: Home Dewey MD Power Shovel Operator Helper: Renetta Shaikh RDCS Attending Provider: Timbo Lund MD Exam Type: CA echo doppler color flow Study Info Indications - LE swelling Complete two-dimensional, color flow and Doppler transthoracic echocardiogram is performed. Summary 1. Complete two-dimensional, color flow and Doppler transthoracic echocardiogram is performed. 2. Left ventricular chamber dimension is normal. 3. Left ventricular systolic function is normal, estimated at 60-65%. 4. The left ventricular diastolic function is grade I diastolic dysfunction. 5. E/e' 4 is not elevated. 6. Left atrial chamber dimension is mildly enlarged. 7. Right atrial chamber dimension is moderately enlarged. 8. There is mild aortic valve sclerosis. 9. There is mild aortic valve regurgitation. 10. There is mild mitral valve regurgitation. 11. There is mild to moderate tricuspid valve regurgitation. 12. No pulmonary hypertension, estimated pulmonary arterial systolic pressure is 29 mmHg. Left Ventricle E/e' 4 is not elevated. Left ventricular chamber dimension is normal. Left ventricular systolic function is normal, estimated at 60-65%. The left ventricular diastolic function is grade I diastolic dysfunction. Right Ventricle Right ventricular systolic function is normal and with normal TAPSE 1.9 cm. Right ventricular chamber dimension is normal. Left Atria Left atrial chamber dimension is mildly enlarged. Right Atria Right atrial chamber dimension is moderately enlarged. Aortic Valve The aortic valve is trileaflet. There is mild aortic valve sclerosis. There is no aortic valve stenosis. There is mild aortic valve regurgitation. Pulmonic Valve There is no pulmonic regurgitation. Mitral Valve There is no mitral valve stenosis. There is mild mitral valve regurgitation. Tricuspid Valve There is mild to moderate tricuspid valve regurgitation. No pulmonary hypertension, estimated pulmonary arterial systolic pressure is 29 mmHg. Pericardium/Pleural There is no pericardial effusion. Inferior Vena Cava Normal inferior vena cava with >50% collapse upon inspiration consistent with normal right atrial pressure, 5 mmHg. Aorta The aortic root size at the sinus of Valsalva is normal. Left Ventricular Outflow Tract Name Value Normal LVOT 2D LVOT Diameter 1.8 cm LVOT Doppler LVOT Peak Gradient 6 mmHg LVOT Mean Gradient 3 mmHg LVOT VTI 24 cm LVOT VTI/AV VTI Ratio 0.8 LVOT Stroke Volume 58 ml LVOT CO 11.0 l/min LVOT CI 7.4 l/min/m2 Pulmonic Valve Name Value Normal PV Doppler PV Peak Gradient 3 mmHg Mitral Valve Name Value Normal MV Doppler MV Decel [place] 293 cm/s2 MV PHT 55 ms MV Area (PHT) 4.0 cm2 4.0-5.0 MV Diastolic Function MV E Peak Velocity 55 cm/s MV A Peak Velocity 62 cm/s MV E/A 0.9 MV Decel Time 189 ms MV Annular TDI MV E/e' (Septal) 4.9 <=8.0 MV E/e' (Lateral) 3.7 <=8.0 MV E/e' (Average) 4.3 Tricuspid Valve Name Value Normal TV Regurgitation Doppler TR Peak Velocity 243 cm/s TR Peak Gradient 24 mmHg Estimated PAP/RSVP RA Pressure 5 mmHg <=5 PA Systolic Pressure 29 mmHg <36 RV Systolic Pressure 29 mmHg <36 Aorta Name Value Normal Ascending Aorta Ao Root Diameter (MM) 3.0 cm Ao Root Diam Index (MM) 2.0 cm/m2 Aortic Valve Name Value Normal AV Doppler AV Peak Velocity 176 cm/s AV Peak Gradient 12 mmHg AV Mean Gradient 5 mmHg AV VTI 31 cm AV Area (Cont Eq VTI) 1.9 cm2 >=3.0 AV Area (Cont Eq Patrick) 1.7 cm2 AV Regurgitation 2D LVOT Area 2.4 cm2 AV Regurgitation Doppler AR Decel Time 3,355 ms AR Decel [place] 104 cm/s2 AR PHT 973 ms Ventricles Name Value Normal LV Dimensions 2D/MM IVS Diastolic Thickness (2D) 0.8 cm 0.6-1.0 LVID Diastole (2D) 3.3 cm 3.8-5.2 LVIW Diastolic Thickness (2D) 1.0 cm 0.6-0.9 LVID Systole (2D) 2.6 cm 2.2-3.5 LVOT Diameter 1.8 cm LV Mass (2D Cubed) 80.88 g 67.00-162.00 LV Mass Index (2D Cubed) 54 g/m2 43-95 Relative Wall Thickness (2D) 0.58 LV Fractional Shortening/Ejection Fraction 2D/MM LV Fractional Shortening (2D) 22 % 27-45 LV EF (2D Teicholz) 46 % 54-74 LV Diastolic Volume (4C MOD) 58 ml LV EF (4C MOD) 58 % LV Diastolic Volume (2C MOD) 60 ml LV EF (2C MOD) 64 % LV Diastolic Volume (BP MOD) 60 ml 46-106 LV Diastolic Volume Index (BP MOD) 40 ml/m2 29-61 LV Systolic Volume (BP MOD) 23 ml 14-42 LV Systolic Volume Index (BP MOD) 15 ml/m2 8-24 LV EF (BP MOD) 62 % 54-74 LV Diastolic Length (4C) 7.5 cm LV Systolic Length (4C) 6.1 cm LV Stroke Volume (4C MOD) 34 ml Atria Name Value Normal LA Dimensions LA Dimension (MM) 3.6 cm 2.7-3.8 LA Volume (4C A-L) 38 ml LA Volume (BP A-L) 39 ml RA Dimensions RA Area (4C) 13.7 cm2 <=18.0 Report Signatures
[2024-08-08] MEDS: LIDOCAINE 5% PATCH 1 PATCH TRANSDERM (00:44)
[2024-08-08 00:53] LABS: Lactic Acid Reflex 2.2 mmol/L (0.7-2.0)
--- NOTE | 2024-08-08 00:54 | WPDANESEPP ---
Anes - Eval Pre Procedure Procedure: Operation Date: 08/03/24 17:30 Proposed Procedures Exploratory Laparotomy Date/Time: 08/08/24 00:54 Surgeon: Marielena Preop Diagnosis: Distended bowel, possible ischemic bowel Pre Op Diagnosis: SBO, incarcerated L inguinal hernia, EULALIO Patient Data Age: 69 Gender: F Height: 1.42 m Weight: 50.6 kg Last Vital Signs Temp 98.6 F 08/07/24 23:56 Pulse 92 08/07/24 23:56 Resp 22 H 08/07/24 23:56 BP 147/74 H 08/07/24 23:56 Pulse Ox 98 08/07/24 23:56 O2 Del Method Room Air 08/05/24 04:00 O2 Flow Rate 8 08/03/24 20:40 Allergies Allergy/AdvReac Type Severity Reaction Status Date / Time No Known Allergies Allergy Verified 08/03/24 12:46 Home Medications ?Medication ?Instructions ?Recorded ?Confirmed ?Type multivitamin 1 tablet PO DAILY 01/14/22 08/03/24 History triamcinolone acetonide 0.1 % 1 applic topical BID #15 grams 03/04/23 08/03/24 Rx topical cream phenytoin 50 mg chewable tablet 50 mg PO QPM #30 tabs 01/12/24 08/03/24 Rx (Dilantin Infatabs) phenytoin sodium extended 100 mg 100 mg PO .COMPLEX #180 caps 01/20/24 08/03/24 Rx capsule (Dilantin Extended) ondansetron HCl 8 mg tablet 8 mg PO Q8H PRN nausea and 08/01/24 08/03/24 Rx vomiting 3 days #10 tabs Laboratory Tests 08/07/24 08/08/24 04:37 00:34 WBC 3.5 L K/mm3 (4.5-10.0) RBC 3.00 L M/mm3 (4.2-5.4) Hgb 9.8 L g/dL (12.0-15.0) Hct 30.2 L % (37.0-47.0) MCV 100.7 H fl (80-100) MCH 32.7 pg (26-34) MCHC 32.5 g/dl (32-36) RDW 13.7 % (11.5-14.5) Plt Count 129 L k/mm3 (150-375) MPV 10.1 fl (7.4-10.4) Immature Gran % (Auto) 1.4 H % (0-0.5) Neut % (Auto) 70.2 % (45.5-73.1) Lymph % (Auto) 14.5 L % (18.3-44.2) [place] % (Auto) 9.9 H % (2.6-8.5) Eos % (Auto) 2.6 % (0-4.4) Baso % (Auto) 1.4 H % (0.2-1.2) Lymph # (Auto) 0.51 L K/mm3 (0.9-3.2) [place] # (Auto) 0.4 K/mm3 (0.1-0.6) Eos # (Auto) 0.1 K/mm3 (0-0.3) Baso # (Auto) 0.1 K/mm3 (0.0-0.1) Abs Immat Gran (auto) 0.05 H K/mm3 (0.00-0.031) Absolute Neuts (auto) 2.5 K/mm3 (1.3-6.7) Absolute Nucleated RBC 0.000 K/mm3 (0.0-0.012) Nucleated RBC % 0.0 % (0.0-0.2) Sodium 143 mmol/L (137-145) Potassium 3.0 L mmol/L (3.4-5.0) Chloride 116 H mmol/L (98-107) Carbon Dioxide 20 L mmol/L (22-30) Anion Gap 7 mmol/L (4-12) BUN 21 H mg/dL (7-17) Creatinine 0.54 L mg/dL (0.7-1.0) Estim Creat Clear Calc Not Reportable Estimated GFR > 60 (59 - ) Glucose 102 mg/dL (65-110) Lactic Acid 2.2 H mmol/L (0.7-2.0) Calcium 7.6 L mg/dL (8.4-10.2) Magnesium 1.9 mg/dL (1.6-2.3) Total Bilirubin 0.4 mg/dL (0.2-1.3) AST 29 U/L (14-36) ALT 31 U/L (6-35) Alkaline Phosphatase 63 U/L (38-126) Total Protein 5.0 L g/dL (6.3-8.2) Albumin 2.4 L g/dL (3.5-5.1) Patient hx anesthesia problems: none Family hx anesthesia problems: none Results Review: All pre-operative results and documents have been reviewed as part of the pre-operative evaluation. [facility] Past Medical History Medical History Small bowel obstruction Ileus, postoperative Nontoxic thyroid nodule Seizures Migraines Arthritis Surgical History Surgical History History of repair of hiatal hernia Laparoscopic Family History Family History Father Diabetes mellitus Diabetic neuropathy Mother Acute myocardial infarction Hypertension Son No problems noted. Social History Social History Smoking status: Former smoker Alcohol intake: never Alcohol use details: seldom; socially Substance use: never Substance use type: does not use Do You Feel Safe in your Home?: Yes Lack of Transportation: No Lack of Food: Never True Current Housing: I Have Housing Concerned About Future Housing: No Difficulty Paying Gas/Electric Bills: No Difficulty Paying for Meds: No Currently Unemployed: No Education: High School Diploma/GED Difficulty w/ Childcare or Family Care: No Living arrangements: alone Spiritual care concerns: No Agree to blood products: Yes Exam Day of Procedure 08/08/24 00:54 Patient weight: normal Heart: regular rate and rhythm Lungs: clear to auscultation Airway: Mallampati scale class II
[2024-08-08] MEDS: metroNIDAZOLE 500 MG/ISO 100ML 500 MG/100 ML BAG 100 MG IVPB (01:12)
[2024-08-08] MEDS: PIPERACILLN/TAZ 3.375GM/NS50ML 3.375 GM/50 ML BAG IVPB ×3 (01:14→18:01)
--- NOTE | 2024-08-08 01:45 | WPDHPUPDATE1 ---
History and Physical Update Update Date/Time: 08/08/24 01:45 History and Physical has been reviewed, including an updated exam of the patient. There are NO changes in the patient's condition. Risks, benefits, and alternatives have been discussed and questions answered. Patient agrees to proceed with procedure.
--- NOTE | 2024-08-08 02:15 | WPDANESACPN ---
Arterial Cath Proc Note Consent: I have discussed with the patient/family/POA, the non-emergent placement of an arterial catheter, including its clinical necessity/indication and associated potential risks and complications. The patient/family/POA and/or understand(s) and acknowledge(s) the need to proceed with the arterial catheter insertion as an important element of the patient's clinical management. Given emergent patient conditions, temporal constraints may have precluded informed consent. Time-Out: A pre-procedural Time-Out was completed immediately before starting the procedure and confirmed: Patient Identification, Site, Procedure, Patient Position and the Availability of Requisite Equipment. Procedure Note Problems: expected hypotension perioperatively Patient position: supine Insertion site: left radial Method of insertion: ultrasound-guided [employer] prep: sterile gloves, mask and hat Site prep: chlorahexadine Skin anesthesia: general anesthesia Gauge: 20 gauge Length (cm): 4.4 cm Closure/Dressing: antimicrobial disc and tegaderm Complications: None immediately noted/suspected.
[2024-08-08] MEDS: LACTATED RINGERS 1,000 ML 30 ML IV CONT ×2 (03:15)
--- NOTE | 2024-08-08 03:29 | PM.PNGS ---
Progress Note: A&P Assessment and Plan (1) Small bowel ischemia: Code(s): K55.9 - Vascular disorder of intestine, unspecified Status: Acute Assessment and Plan: Reviewed the CT and discussed findings with the patient and her sister and daughter who were at her bedside. She has findings of pneumatosis and portal venous gas which are typically seen setting of bowel ischemia. I discussed that I would not be able to tell how much the bowel was involved until exploring surgically. The etiology bowel ischemia is unknown, and I discuss this could be related to a vascular occlusion secondary to a blood clot or other source. I have recommended emergent exploratory laparotomy with possible bowel resection. I discussed the high likelihood of requiring intensive care unit stay postoperatively. Patient and family are agreeable to proceeding. Subjective Subjective Date/Time Seen: 08/08/24 01:00 Interval history: Patient had NG tube removed on day shift and was tolerating clear liquid diet initially. She also had 2 bowel movements during the day. Her abdomen then became firm and distended rather suddenly. Was initially called by the nurse when this 1st started in the evening and she was made NPO except ice chips and a KUB was ordered. The nurse reported that she was not complaining of much pain at that time but just feeling very distended and uncomfortable. She was also tachypneic. The KUB showed a massively distended stomach and small bowel consistent ongoing ileus. Eventually she became nauseated and the hospitalist was called and assessed patient and ordered NG tube placement. I was then called and updated of her condition and I also ordered a stat CT abdomen and pelvis without contrast. The CT findings then call to me and I reviewed the CT at home and with decided to call the OR team and. The patient was having tachypnea with somewhat labored breathing but was hemodynamically stable. Her lactic acid level was 2.2. Her abdomen was very firm and distended. The IMU nurse did state that the NG tube was difficult placing again and the x-ray showed the tip of the NG tube at the GE junction only. They were unable to successfully advance this down any further. Exam GI: Inspection: distended GI Palp: Yes Firmness to palpation present (GI), Yes Tenderness to palpation present (GI) (Diffuse) and Yes Guarding due to palpation present (GI) (Diffuse) Percussion: Yes tympanic to percussion Objective Data Vital Signs Vital Signs: Vital Signs - 24 hr 08/07/24 04:00 08/07/24 06:00 08/07/24 08:00 Temperature 97.8 F Pulse Rate 74 73 70 Respiratory Rate 20 Blood Pressure 109/59 L Pulse Oximetry 100 Oxygen Delivery Oxygen Flow Rate 08/07/24 08:00 08/07/24 10:00 08/07/24 12:00 Temperature 97.5 F L Pulse Rate 72 76 74 Respiratory Rate 24 H Blood Pressure 109/57 L Pulse Oximetry 99 Oxygen Delivery Oxygen Flow Rate 08/07/24 12:00 08/07/24 14:00 08/07/24 15:37 Temperature 98.9 F Pulse Rate 77 82 69 Respiratory Rate 14 Blood Pressure 117/56 L Pulse Oximetry 98 Oxygen Delivery Oxygen Flow Rate 08/07/24 16:00 08/07/24 18:00 08/07/24 20:20 Temperature 97.8 F Pulse Rate 69 75 73 Respiratory Rate 20 Blood Pressure 129/70 Pulse Oximetry 100 Oxygen Delivery Oxygen Flow Rate 08/07/24 23:56 08/08/24 01:45 08/08/24 03:15 Temperature 98.6 F 98.0 F 97.0 F L Pulse Rate 92 113 H 90 Respiratory Rate 22 H 28 H 19 Blood Pressure 147/74 H 153/103 H 99/55 L Pulse Oximetry 98 92 100 Oxygen Delivery Nasal Cannula Simple Face Mask Oxygen Flow Rate 2 8 Intake/Output Intake/Output: Intake & Output 08/05/24 08/06/24 08/08/24 08/08/24 23:59 23:59 00:59 23:59 Intake Total 3058.3 2100 1950 150 Output Total 1005 2825 236 Balance 2053.3 -725 1714 150 Meds/Results Medications: Active Medications Generic Name Dose Route Start Last Admin Trade Name Freq PRN Reason Stop Dose Admin Al Hydrox/Mg Hydrox/Simethicone 30 ml 08/06/24 08:45 08/07/24 17:15 Mag Hydrox/Al Hydrox/Simeth 30 Ml Udc PO 30 ml Q8H MORGAN Administration Bisacodyl 10 mg 08/06/24 08:51 Bisacodyl 10 Mg Suppository RECTAL QAM PRN Constipation Dextrose 12.5 gm 08/03/24 15:41 Dextrose 50% 25 Gm/50 Ml Syringe IV PUSH PRN PRN Hypoglycemia Protocol Enoxaparin Sodium 40 mg 08/05/24 09:00 08/07/24 08:24 Enoxaparin 40 Mg/0.4 Ml Syringe SUB-Q 40 mg DAILY MORGAN Administration Famotidine 20 mg 08/06/24 15:20 08/07/24 20:18 Famotidine 20 Mg/2 Ml Vial IV PUSH 20 mg Q12HR MORGAN Administration Fentanyl Citrate 25 mcg 08/08/24 03:07 Fentanyl Citrate Inj (*Crx) 100 Mcg/2 Ml Vial IV PUSH Q2M PRN Pain Glucagon 1 mg 08/03/24 15:41 Glucagon For Inj 1 Mg Vial IM PRN PRN Hypoglycemia Protocol Glucose 15 gm 08/03/24 15:41 Glucose Oral Gel 15 Gm Of Glucse In 37.5 Gm Tube PO PRN PRN Hypoglycemia Protocol Dextrose 1,000 mls @ 100 mls/hr 08/03/24 15:41 Dextrose 5% 1,000 Ml IVPB PRN PRN Hypoglycemia Protocol Ibuprofen 800 mg in 200 mls @ 400 mls/hr 08/03/24 22:00 08/07/24 23:35 Caldolor 800 Mg/200 Ml IVPB Infused Q8HR MORGAN Infusion Potassium Chloride/Dextrose/Sod Cl 1,000 mls @ 100 mls/hr 08/06/24 08:50 08/07/24 08:26 Kcl 20 Meq/D5/0.45% Sod Chl IV CONT 100 mls/hr .Q10H MORGAN Administration Piperacillin/Tazobactam/Dextrose 3.375 gm in 50 mls @ 100 mls/hr 08/08/24 00:00 08/08/24 01:44 Zosyn 3.375 Gm/Ns 50 Ml IVPB Infused Q6H MORGAN Infusion Metronidazole 500 mg in 100 mls @ 100 mls/hr 08/08/24 01:00 08/08/24 02:12 Flagyl 500 Mg/Iso Soln 100 Ml IVPB Infused Q8H MORGAN Infusion Lactated Ringer's 1,000 mls @ 30 mls/hr 08/08/24 01:00 Lr - Lactated Ringers Iv IV CONT .Q24H MORGAN Lactated Ringer's 1,000 mls @ 30 mls/hr 08/08/24 03:10 Lr - Lactated Ringers Iv IV CONT .Q24H MORGAN Lidocaine 1 patch 08/04/24 10:25 08/08/24 00:44 Lidocaine 5% Patch TRANSDERM 1 patch DAILY MORGAN Administration Morphine Sulfate 2 mg 08/04/24 09:58 08/07/24 23:43 Morphine Sulfate (*Crx) 2 Mg/Ml Inj IV PUSH 2 mg Q3H PRN Administration Pain Rated 7-10 Ondansetron HCl 4 mg 08/03/24 15:38 08/07/24 20:18 Ondansetron Inj 4 Mg/2 Ml Vial IV PUSH 4 mg Q4H PRN Administration Nausea Ondansetron HCl 4 mg 08/08/24 03:07 Ondansetron Inj 4 Mg/2 Ml Vial IV PUSH ONCE PRN Nausea Pantoprazole Sodium 40 mg 08/04/24 09:00 08/07/24 08:24 Pantoprazole Sodium Iv 40 Mg Vial IV PUSH 40 mg QAM MORGAN Administration Phenytoin Sodium 225 mg 08/07/24 21:15 08/07/24 21:37 Phenytoin Sod 250 Mg/5 Ml Vial (*Bkc) IV PUSH 225 mg Q12HR MORGAN Administration Sodium Chloride 20 ml 08/06/24 23:57 08/07/24 06:05 Central Line Flush IV PUSH 20 ml PRN PRN Administration after blood draws Sodium Chloride 10 ml 08/06/24 23:57 Central Line Flush IV PUSH PRN PRN with TPN bag changes Sodium Chloride 10 ml 08/07/24 06:00 08/07/24 15:03 Central Line Flush IV PUSH 10 ml Q8HR MORGAN Administration Radiology Results: ITS Impressions Chest X-Ray 08/06/24 19:41 IMPRESSION: No acute cardiopulmonary pathology. Abdomen X-Ray 08/07/24 19:51 IMPRESSION: NG tube not visualized. Severe gastric distention. Small bowel ileus or obstruction. Labs Labs: Laboratory Results - last 24 hr 08/07/24 08/08/24 04:37 00:34 WBC 3.5 L RBC 3.00 L Hgb 9.8 L Hct 30.2 L MCV 100.7 H MCH 32.7 MCHC 32.5 RDW 13.7 Plt Count 129 L MPV 10.1 Immature Gran % (Auto) 1.4 H Neut % (Auto) 70.2 Lymph % (Auto) 14.5 L [place] % (Auto) 9.9 H Eos % (Auto) 2.6 Baso % (Auto) 1.4 H Lymph # (Auto) 0.51 L [place] # (Auto) 0.4 Eos # (Auto) 0.1 Baso # (Auto) 0.1 Abs Immat Gran (auto) 0.05 H Absolute Neuts (auto) 2.5 Absolute Nucleated RBC 0.000 Nucleated RBC % 0.0 Sodium 143 Potassium 3.0 L Chloride 116 H Carbon Dioxide 20 L Anion Gap 7 BUN 21 H Creatinine 0.54 L Estim Creat Clear Calc Not Reportable Estimated GFR > 60 Glucose 102 Lactic Acid 2.2 H Calcium 7.6 L Magnesium 1.9 Total Bilirubin 0.4 AST 29 ALT 31 Alkaline Phosphatase 63 Total Protein 5.0 L Albumin 2.4 L
[2024-08-08] MEDS: fentaNYL CITRATE INJ (*CRX) 100 MCG/2 ML VIAL 25 MCG IV PUSH ×7 (03:34→04:09)
--- NOTE | 2024-08-08 03:36 | P.OP_ITS ---
Procedure Note - Detailed Date of Procedure 08/08/24 Pre-op Diagnosis Bowel ischemia Post-op Diagnosis Other (Gastric outlet obstruction, suspected abdominal compartment syndrome) Procedure Performed Exploratory laparotomy, open gastrostomy tube placement Surgeon Pipo Peguero, DO Anesthesia General Indications New onset abdominal distension, CT with evidence of gastric and small bowel pneumatosis with portal venous gas concerning for ischemic bowel. Findings Exploratory laparotomy was performed. The bowel appeared dilated but I did not identify any definite signs of ischemia or necrosis. The stomach appeared to be massively dilated and was very tense. NG tube was unable to be advanced into the stomach. A gastrostomy tube was placed to decompress the stomach. A large amount air was released from the stomach and also about 300 mL of gastric fluid. Eventually anesthesia was able to advance an NG into the body of the stomach once it had been decompressed with the G-tube. Palpable pulse was identified within the superior mesenteric artery and its branches. After thorough inspection of the bowel there did not appear to be any location that required resection. Description of Procedure Procedure as well as risks, benefits, and alternatives were discussed with the patient. Written consent was obtained and placed in chart prior to procedure. Patient was brought back to surgical suite. She was placed supine on operating table. Time-out was done to confirm patient and procedure. She was then intubated by the anesthesia department. Her abdomen was prepped and draped in sterile fashion using chlorhexidine prep. A 20 cm vertical midline incision was made centered on the umbilicus using a 10 blade scalpel. Electrocautery was used for hemostasis and for dissection through the subcutaneous tissue. The linea alba was then incised with electrocautery. I entered into the abdominal cavity and carefully extended the incision the linea alba throughout the length of the skin incision using electrocautery. There was some clear ascites that initially was encountered and this was sectioned using a pool sucker. I then was able to deliver some of the small bowel out through the incision and carefully inspect this. The bowel appeared slightly pale initially but was showing evidence of return of normal pink color very quickly. The stomach appeared massively dilated and was at least the size of a football. The wall appeared very thin due to the extensive distension. The aluminum container tester attempted advancement of the NG tube into the stomach but was meeting resistance and the tube was coiling in the back of her throat. Decision was made to place a gastrostomy tube to help decompress the stomach. I identified an area on the anterior surface of the greater curvature of the stomach and placed a pursestring suture with a 3-0 silk suture. A gastrotomy was then made for in the center of the pursestring suture using electrocautery. A large amount of air was released and this allowed the stomach to decompress. I initially there was really no significant gastric drainage. I then chose a 16 [place] gastrostomy tube and made a counter incision in the left upper quadrant and advanced the gastrostomy tube through the abdominal layers using a curved clamp. The gastrostomy tube was then advanced through the gastrotomy into the lumen of the stomach. The balloon was inflated the gastrostomy tube and the pursestring suture was tied down securely around the tube. Using the gastrostomy tube I was then able to suction about 300 mL of gastric contents from the body of the st omach. This allowed the stomach to decompress further. I then palpated up on the anterior surface of the stomach and did not identify any masses or causes for obstruction at the GE junction. At this point the aluminum container tester was able to advanced the NG all the way into the body of the stomach and the NG tube was palpated within the body of the stomach and confirmed in proper position. I then secured the anterior wall of the stomach to the abdominal wall using 3-0 silk simple interrupted sutures on both the cephalad and caudad side of the G- tube. The G-tube was then pulled secure to the abdominal wall and the bolster was secured in place at the skin. I then began inspecting the remainder of the abdomen. The small bowel was inspected further and I was able to run the small intestine from ligament of Treitz to the ileocecal valve. There did not appear to be any evidence of necrotic or nonviable small bowel. I did not identify any other points of obstruction. The bowel did appear to be moderately dilated and filled with fluid and air. There did not appear to be any evidence of obstruction within the colon. I then carefully milked some of the small bowel contents retrograde towards the ligament of Treitz to allow the small bowel contents to reflux back up into the stomach. There did not appear to be any complete obstruction preventing reflux of contents. I was able to suction about another 500 mL of gastric contents once the small bowel contents were refluxed back into the stomach. Once this was done the small bowel appeared less dilated. I then carefully inspected the superior mesenteric artery and its branches and was able to palpate pulsatile vessels throughout the mesentery. I also inspected the mesocolon and was able to palpate a pulse in the middle colic vessel and ileocolic vessel. Since there did not appear to be any evidence of vascular occlusion or nonviable bowel, felt that it was going to be safe to close the abdomen. Inspected the abdomen 1 final time and no other significant abnormalities were noted. The color and thickness of the stomach wall appeared to be going to normal now that the stomach was decompressed. The fascia of the midline incision was then reapproximated using 0 PDS running absorbable suture starting from each end and meeting in the middle. The skin was then reapproximated using a skin stapler. Telfa 4 x 4 gauze and Medipore tape were then applied as well as a drain sponge around the G-tube. The patient was then awakened from anesthesia, extubated, and transferred to recovery Estimated Blood Loss 10 Urine Output 300 Complications No immediate complications Condition Critical Disposition ICU [facility] Billing Surgery - Charge Forward: Surgery Billing
--- NOTE | 2024-08-08 03:37 | PM.OP ---
Procedure Note - Brief Procedure Note - Brief Date of procedure: 08/08/24 Bowel ischemia Post-op diagnosis: Other (Gastric outlet obstruction, suspected abdominal compartment syndrome) Procedure performed: Exploratory laparotomy, gastrostomy tube placement Surgeon: Pipo Peguero DO Anesthesia: HARISH Findings: Exploratory laparotomy was performed. The bowel appeared dilated but I did not identify any definite signs of ischemia or necrosis. The stomach appeared to be massively dilated and was very tense. NG tube was unable to be advanced into the stomach. A gastrostomy tube was placed to decompress the stomach. A large amount air was released from the stomach and also about 300 mL of gastric fluid. Eventually anesthesia was able to advance an NG into the body of the stomach once it had been decompressed with the G-tube. Palpable pulse was identified within the superior mesenteric artery and its branches. After thorough inspection of the bowel there did not appear to be any location that required resection. Estimated blood loss (mL): 10 Urine output (mL): 300 Drains: Yes (16 [place] gastrostomy tube) Complications: No immediate complications Condition: Critical Disposition: ICU
[2024-08-08 03:38] LABS: Reflex Lactic Acid Yes or No Add Lactic
--- NOTE | 2024-08-08 05:13 | PC.NURSE ---
This patient, Orquidea Kim, was received from PACU following IMU on 08/08/24 at 0445. Patient/family oriented to unit policies and routines
[2024-08-08 05:22] LABS: Lactic Acid 3.1 mmol/L (0.7-2.0)
--- NOTE | 2024-08-08 05:44 | PC.NURSE ---
Patient had a KUB during shift report (08/07) from c/o abdominal distention & pain; NG had been removed around 1630 per report. Due to increased pain & results from KUB, I spoke with the Hospitalist Raquel Moscoso regarding placing NG tube back. I contacted Dr. Delcid regarding KUB results and that patient's pain was increasing as well as swelling of the abdomen & that the NG was going to be placed. He asked for a CT w/o contrast of the abdomen & pelvis after the KUB was completed. NG was placed with difficulty, as have previous NG tubes, and KUB was completed for placement verification. CT was completed. (see chart for results) The patient's abdominal swelling continued to spread further up to her chest as well as throughout her extremities. Results from CT scan were called to RN and Hospitalist. Dr. Delcid contacted me and I had the call transferred to the patient's room so he could speak with the family/patient regarding surgery. Patient was taken to surgery by nurse, charge nurse and a tech and was to be transferred to ICU after surgery. Report was given to Soco PATEL in ICU. Patient's belongings were moved from IMU 212 to ICU 1 while the patient was in surgery.
[2024-08-08] MEDS: LACTATED RINGERS 1,000 ML 150 ML IV CONT (05:52)
[2024-08-08] MEDS: CENTRAL LINE FLUSH 10 ML IV PUSH ×3 (05:53→21:11)
[2024-08-08] MEDS: NOREPINEPHRINE 8 MG/D5W 250 ML 8 MG/250 ML BAG 9.38 MG IV CONT (06:41)
[2024-08-08] MEDS: LACTATED RINGERS 1,000 ML 999 ML IV CONT (06:55)
[2024-08-08 07:05] LABS: Alanine Aminotransferase 39 U/L (6-35); Albumin Level 2.5 g/dL (3.5-5.1); Alkaline Phosphatase 88 U/L (38-126); Anion Gap 10 mmol/L (4-12); Aspartate Amino Transferase 57 U/L (14-36); Bilirubin,Total 0.7 mg/dL (0.2-1.3); Blood Urea Nitrogen 15 mg/dL (7-17); Calcium 7.8 mg/dL (8.4-10.2); Carbon Dioxide 17 mmol/L (22-30); Chloride 115 mmol/L (98-107); Estimated Glomerular Filt Rate > 60; Glucose 91 mg/dL (65-110); Magnesium 1.6 mg/dL (1.6-2.3); Phosphorus 2.7 mg/dL (2.5-4.5); Potassium 3.3 mmol/L (3.4-5.0); Sodium 142 mmol/L (137-145)
[2024-08-08] MEDS: IBUPROFEN IV 800 MG/200 ML 800 MG/200 ML BAG 400 MG IVPB ×3 (07:47→21:08)
[2024-08-08] MEDS: PHENYTOIN SOD 250 MG/5 ML 225 MG IV PUSH ×2 (09:20→20:08)
[2024-08-08] MEDS: SODIUM BICARBONATE 8.4% 50 MEQ/50 ML SYRINGE IV PUSH ×2 (09:21→13:15)
[2024-08-08] MEDS: PANTOPRAZOLE SODIUM IV 40 MG VIAL IV PUSH (09:21)
[2024-08-08] MEDS: ENOXAPARIN 40 MG/0.4 ML SYRINGE SUB-Q (09:34)
[2024-08-08] MEDS: CALCIUM GLUC 2,000 MG/NS 100ML 2,000 MG/100 ML BAG 100 MG IVPB (09:40)
[2024-08-08] MEDS: MAGNESIUM SULF 2 GM/WATER 50ML 2 GM/50 ML BAG IVPB (09:41)
[2024-08-08 09:42] LABS: NT Pro B Type Natriuretic Pept 3400 pg/mL (19.9-100)
[2024-08-08 09:50] LABS: Hematocrit 37.4 % (37.0-47.0); Hemoglobin 12.1 g/dL (12.0-15.0); Immature Platelet Fraction Pct 2.6 % (0.9-11.2); Mean Corpuscular HGB Conc 32.4 g/dl (32-36); Mean Corpuscular Hemoglobin 32.5 pg (26-34); Mean Corpuscular Volume 100.5 fl (80-100); Mean Platelet Volume 9.9 fl (7.4-10.4); Platelet Count Result 108 k/mm3 (150-375); Red Blood Count 3.72 M/mm3 (4.2-5.4); Red Cell Distribution Width 14.1 % (11.5-14.5); White Blood Count 12.5 K/mm3 (4.5-10.0)
--- NOTE | 2024-08-08 09:52 | P.CONIN_ITS ---
Assessment and Plan Assessment and plan (1) Small bowel obstruction: Code(s): K56.609 - Unspecified intestinal obstruction, unspecified as to partial versus complete obstruction Status: Acute Assessment and Plan: Status post 08/03 Open incarcerated left femoral hernia repair without mesh 08/08 Exploratory laparotomy, gastrostomy tube placement Management per General surgery NG tube in place to suction Bowel rest Antibiotics as below IV fluid (2) Ileus, postoperative: Code(s): K91.89 - Other postprocedural complications and disorders of digestive system; K56.7 - Ileus, unspecified Status: Acute Assessment and Plan: See above (3) Incarcerated left inguinal hernia: Code(s): K40.30 - Unilateral inguinal hernia, with obstruction, without gangrene, not specified as recurrent Status: Acute Assessment and Plan: See above (4) EULALIO (acute kidney injury): Code(s): N17.9 - Acute kidney failure, unspecified Status: Acute Assessment and Plan: Creatinine improved with IV fluids. Monitor urine output electrolytes and creatinine (5) Sepsis: Code(s): A41.9 - Sepsis, unspecified organism Status: Acute Assessment and Plan: Continue Zosyn Check UA obtained blood cultures Check procalcitonin (6) Shock: Code(s): R57.9 - Shock, unspecified Status: Acute Assessment and Plan: Secondary to sepsis versus intravascular volume depletion. Continue IV fluids but at a cautious rate At 25% albumin Continue Levophed Check echocardiogram procalcitonin and BNP (7) Seizures: Code(s): R56.9 - Unspecified convulsions Status: Chronic Assessment and Plan: Continue IV phenytoin (8) Electrolyte abnormality: Code(s): E87.8 - Other disorders of electrolyte and fluid balance, not elsewhere classified Status: Acute Assessment and Plan: Change fluids to half-normal saline Replace potassium magnesium and calcium Plan DVT prophylaxis -Lovenox Stress ulcer prophylaxis -Protonix Nutrition - npo Code Status - Full Code Total Critical Care Time - 32 minutes Due to a high probability of clinically significant, life threatening deterioration, the patient required my highest level of preparedness to intervene emergently and I personally spent this critical care time directly and personally managing the patient. This critical care time included obtaining a history; examining the patient; pulse oximetry; ordering and review of studies; arranging urgent treatment with development of a management plan; evaluation of patient's response to treatment; frequent reassessment; and discussions with other providers. It was exclusive of separately billable procedures and treating other patients and teaching time. Please see Assessment and Plan section and the rest of the note for further information on patient assessment and treatment Outpatient Coding Specialist Consult Note Consult date: 08/08/24 HPI: Orquidea Kim is a 69 year old female with past medical history of seizures was admitted on 3 with chief complaint of abdominal pain CT showed small bowel obstruction secondary to left inguinal hernia. Patient underwent open incarcerated left femoral hernia repair without mesh. Patient also developed EULALIO and received IV fluids. Also received antibiotic. Postoperatively she developed ileus. Yesterday evening patient had a rapid response due to worsening abdominal distension and pain. Patient had a CT scan done which was concerning of ischemic bowel. Patient was taken to operating room and underwent Exploratory laparotomy, gastrostomy tube placement. Her stomach was massively dilated and was very tense it was deflated with gastrostomy tube placement post which in and tube was successfully placed. No perforation or ischemia was noticed. Patient was admitted to ICU post surgery. Patient is currently on Levophed IV fluids and has NG tube in place. Patient states that she feels sore in the belly she denies any chest pain nausea vomiting shortness of breath or cough. Denies any fever. She is drowsy from her pain medications. All other systems were reviewed and were negative. Review of Systems 2 Review of Systems: All systems reviewed & are unremarkable except as noted in HPI and below (HPI) [facility] Past Medical History Medical History Small bowel obstruction Ileus, postoperative Nontoxic thyroid nodule Seizures Migraines Arthritis Surgical History Surgical History History of repair of hiatal hernia Laparoscopic Family History Family History Father Diabetes mellitus Diabetic neuropathy Mother Acute myocardial infarction Hypertension Son No problems noted. Social History Social History Smoking status: Former smoker Alcohol intake: never Alcohol use details: seldom; socially Substance use: never Substance use type: does not use Do You Feel Safe in your Home?: Yes Lack of Transportation: No Lack of Food: Never True Current Housing: I Have Housing Concerned About Future Housing: No Difficulty Paying Gas/Electric Bills: No Difficulty Paying for Meds: No Currently Unemployed: No Education: High School Diploma/GED Difficulty w/ Childcare or Family Care: No Living arrangements: alone Spiritual care concerns: No Agree to blood products: Yes Meds Home Medications and Allergies Home Medications ?Medication ?Instructions ?Recorded ?Confirmed ?Type multivitamin 1 tablet PO DAILY 01/14/22 08/03/24 History triamcinolone acetonide 0.1 % 1 applic topical BID #15 grams 03/04/23 08/03/24 Rx topical cream phenytoin 50 mg chewable tablet 50 mg PO QPM #30 tabs 01/12/24 08/03/24 Rx (Dilantin Infatabs) phenytoin sodium extended 100 mg 100 mg PO .COMPLEX #180 caps 01/20/24 08/03/24 Rx capsule (Dilantin Extended) ondansetron HCl 8 mg tablet 8 mg PO Q8H PRN nausea and 08/01/24 08/03/24 Rx vomiting 3 days #10 tabs Allergies Allergy/AdvReac Type Severity Reaction Status Date / Time No Known Allergies Allergy Verified 08/03/24 12:46 Vital Signs Vital Signs - 24 hr 08/07/24 10:00 08/07/24 12:00 08/07/24 12:00 Temperature 36.4 C L Pulse Rate 76 74 77 Respiratory Rate 24 H Blood Pressure 109/57 L Pulse Oximetry 99 Oxygen Delivery Oxygen Flow Rate Fraction of Inspired Oxygen 08/07/24 14:00 08/07/24 15:37 08/07/24 16:00 Temperature 37.2 C Pulse Rate 82 69 69 Respiratory Rate 14 Blood Pressure 117/56 L Pulse Oximetry 98 Oxygen Delivery Oxygen Flow Rate Fraction of Inspired Oxygen 08/07/24 18:00 08/07/24 20:00 08/07/24 20:00 Temperature Pulse Rate 75 86 Respiratory Rate Blood Pressure Pulse Oximetry Oxygen Delivery Room Air Oxygen Flow Rate Fraction of Inspired Oxygen 08/07/24 20:20 08/07/24 22:00 08/07/24 23:30 Temperature 36.6 C Pulse Rate 73 91 Respiratory Rate 20 Blood Pressure 129/70 Pulse Oximetry 100 Oxygen Delivery Room Air Oxygen Flow Rate Fraction of Inspired Oxygen 08/07/24 23:56 08/08/24 00:00 08/08/24 01:45 Temperature 37.0 C 36.7 C Pulse Rate 92 97 113 H Respiratory Rate 22 H 28 H Blood Pressure 147/74 H 153/103 H Pulse Oximetry 98 92 Oxygen Delivery Nasal Cannula Oxygen Flow Rate 2 Fraction of Inspired Oxygen 08/08/24 03:15 08/08/24 03:30 08/08/24 03:45 Temperature 36.1 C L Pulse Rate 90 85 81 Respiratory Rate 19 20 18 Blood Pressure 99/55 L 104/59 L 103/56 L Pulse Oximetry 100 100 100 Oxygen Delivery Simple Face Mask Simple Face Mask Simple Face Mask Oxygen Flow Rate 8 8 8 Fraction of Inspired Oxygen 08/08/24 04:00 08/08/24 04:00 08/08/24 04:15 Temperature Pulse Rate 81 81 Respiratory Rate 14 14 Blood Pressure 97/55 L 94/55 L Pulse Oximetry 99 97 100 Oxygen Delivery Nasal Cannula Nasal Cannula Nasal Cannula Oxygen Flow Rate 2 2 2 Fraction of Inspired Oxygen 08/08/24 04:45 08/08/24 04:45 08/08/24 05:00 Temperature 36.0 C L Pulse Rate 90 90 85 Respiratory Rate 17 15 Blood Pressure 104/61 93/50 L Pulse Oximetry 98 99 Oxygen Delivery Oxygen Flow Rate Fraction of Inspired Oxygen 08/08/24 05:45 08/08/24 06:00 08/08/24 06:00 Temperature 35.9 C L Pulse Rate 89 89 89 Respiratory Rate 19 19 Blood Pressure 86/49 L 81/48 L Pulse Oximetry 97 97 Oxygen Delivery Oxygen Flow Rate Fraction of Inspired Oxygen 08/08/24 06:30 08/08/24 06:41 08/08/24 07:00 Temperature Pulse Rate 91 92 86 Respiratory Rate 21 H Blood Pressure 78/46 L 79/48 L 80/45 L Pulse Oximetry 97 Oxygen Delivery Oxygen Flow Rate Fraction of Inspired Oxygen 08/08/24 07:30 08/08/24 08:03 08/08/24 08:22 Temperature 35.9 C L Pulse Rate 84 83 Respiratory Rate 19 19 Blood Pressure 100/58 L 90/48 L Pulse Oximetry 99 97 98 Oxygen Delivery Room Air Oxygen Flow Rate Fraction of Inspired Oxygen 21 08/08/24 09:43 08/08/24 09:47 Temperature Pulse Rate 91 94 Respiratory Rate Blood Pressure 76/43 L 89/53 L Pulse Oximetry Oxygen Delivery Oxygen Flow Rate Fraction of Inspired Oxygen Exam 2 Narrative: General: Frail old female who looks older than her age. She drowsy and no significant distress Lungs/Chest: Trachea central Clear BS B/L, No crackles or wheezing. Mild tachypnea Cardiac: RRR. Normal S1 S2. No murmurs Circulation: The feet are warm Abdomen: Hypo at bowel sounds.. Diffuse tenderness to palpation, gastrostomy tube in place, incision under dressing Extremities: No clubbing or cyanosis, bilateral edema present : Khanna in place Neurologic: Follows commands. Moves all 4 extremities PERRL Skin: No Rash Results Labs 08/07/24 04:37 08/08/24 05:04 Labs: BMP 08/08/24 05:04 Sodium 142 Potassium 3.3 L Chloride 115 H Carbon Dioxide 17 L BUN 15 D Creatinine 0.72 Glucose 91 Calcium 7.8 L Liver Function 08/08/24 Range/Units 05:04 Total Bilirubin 0.7 (0.2-1.3) mg/dL AST 57 H (14-36) U/L ALT 39 H (6-35) U/L Alkaline Phosphatase 88 (38-126) U/L Albumin 2.5 L (3.5-5.1) g/dL
[2024-08-08 10:01] LABS: Lactic Acid Reflex 3.3 mmol/L (0.7-2.0)
[2024-08-08 10:41] LABS: Procalcitonin 4.7 ng/mL
[2024-08-08] MEDS: ALBUMIN HUMAN 5% 250 ML IV CONT ×2 (10:53→20:07)
--- NOTE | 2024-08-08 11:25 | P.PNGS_ITS ---
Progress Note: A&P Assessment and Plan (1) Gastric outlet obstruction: Code(s): K31.1 - Adult hypertrophic pyloric stenosis Status: Acute Assessment and Plan: * Unclear etiology. Her stomach was severely distended again after NG removal, which was present during admission as well. Continue NG tube decompression and bowel rest for now. Will eventually need further investigation when she is more stable. (2) Small bowel obstruction: Code(s): K56.609 - Unspecified intestinal obstruction, unspecified as to partial versus complete obstruction Status: Acute Assessment and Plan: * Initially presented with SBO felt secondary to the left inguinal hernia, which was repaired. This initially improved, but after trial of liquids and NG removal, she developed a severely distended stomach. She was taken back to surgery last night for concerns of bowel ischemia and was found to have suspected abdominal compartment syndrome and gastric outlet obstruction. * Continue NG tube decompression, bowel rest, see plan above (3) Sepsis: Code(s): A41.9 - Sepsis, unspecified organism Status: Acute Assessment and Plan: * Continue IV antibiotics, no bowel ischemia during surgery overnight, wean vasopressors as tolerated, trend lactic acid, see above (4) Incarcerated left inguinal hernia: Code(s): K40.30 - Unilateral inguinal hernia, with obstruction, without gangrene, not specified as recurrent Status: Acute Assessment and Plan: * Postop day 5 following open left inguinal hernia repair. Repair intact, incision healing well. Plan I have discussed the patient's case and plan of care with Dr. Peguero. Subjective Subjective Date/Time Seen: 08/08/24 11:25 Post Op day: 0 (Exploratory laparotomy, gastrostomy tube placement) Patient reports: no flatus and no bowel movement Interval history: Patient denies any abdominal pain. She is still having some mid to lower back pain. She has labored breathing and feels short of breath. O2 sats are normal on room air. She is in the ICU on Levophed infusion. They have not had to go up on the vasopressors. She is remaining stable. NG tube in place with bloody output. Exam Const: General: comfortable and no acute distress Orientation/consciousness: patient oriented x3 Resp: Effort & Inspection: labored, no respiratory distress and not tachypneic Auscultation: clear to auscultation bilaterally Cardio: Rate: regular rate Rhythm: regular rhythm GI: Inspection: distended, incision (gauze dressing dry and intact) and other (DAYNA drain with serous drainage, G tube clamped) GI Palp: Yes Soft to palpat ion, Yes Tenderness to palpation present (GI), No Guarding due to palpation present (GI) and No Rebound tenderness present Auscultation: absent bowel sounds Objective Data Vital Signs Vital Signs: Vital Signs - 24 hr 08/07/24 12:00 08/07/24 12:00 08/07/24 14:00 Temperature 97.5 F L Pulse Rate 74 77 82 Respiratory Rate 24 H Blood Pressure 109/57 L Pulse Oximetry 99 Oxygen Delivery Oxygen Flow Rate Fraction of Inspired Oxygen 08/07/24 15:37 08/07/24 16:00 08/07/24 18:00 Temperature 98.9 F Pulse Rate 69 69 75 Respiratory Rate 14 Blood Pressure 117/56 L Pulse Oximetry 98 Oxygen Delivery Oxygen Flow Rate Fraction of Inspired Oxygen 08/07/24 20:00 08/07/24 20:00 08/07/24 20:20 Temperature 97.8 F Pulse Rate 86 73 Respiratory Rate 20 Blood Pressure 129/70 Pulse Oximetry 100 Oxygen Delivery Room Air Oxygen Flow Rate Fraction of Inspired Oxygen 08/07/24 22:00 08/07/24 23:30 08/07/24 23:56 Temperature 98.6 F Pulse Rate 91 92 Respiratory Rate 22 H Blood Pressure 147/74 H Pulse Oximetry 98 Oxygen Delivery Room Air Oxygen Flow Rate Fraction of Inspired Oxygen 08/08/24 00:00 08/08/24 01:45 08/08/24 03:15 Temperature 98.0 F 97.0 F L Pulse Rate 97 113 H 90 Respiratory Rate 28 H 19 Blood Pressure 153/103 H 99/55 L Pulse Oximetry 92 100 Oxygen Delivery Nasal Cannula Simple Face Mask Oxygen Flow Rate 2 8 Fraction of Inspired Oxygen 08/08/24 03:30 08/08/24 03:45 08/08/24 04:00 Temperature Pulse Rate 85 81 81 Respiratory Rate 20 18 14 Blood Pressure 104/59 L 103/56 L 97/55 L Pulse Oximetry 100 100 99 Oxygen Delivery Simple Face Mask Simple Face Mask Nasal Cannula Oxygen Flow Rate 8 8 2 Fraction of Inspired Oxygen 08/08/24 04:00 08/08/24 04:15 08/08/24 04:45 Temperature 96.8 F L Pulse Rate 81 90 Respiratory Rate 14 17 Blood Pressure 94/55 L 104/61 Pulse Oximetry 97 100 98 Oxygen Delivery Nasal Cannula Nasal Cannula Oxygen Flow Rate 2 2 Fraction of Inspired Oxygen 08/08/24 04:45 08/08/24 05:00 08/08/24 05:45 Temperature Pulse Rate 90 85 89 Respiratory Rate 15 19 Blood Pressure 93/50 L 86/49 L Pulse Oximetry 99 97 Oxygen Delivery Oxygen Flow Rate Fraction of Inspired Oxygen 08/08/24 06:00 08/08/24 06:00 08/08/24 06:30 Temperature 96.7 F L Pulse Rate 89 89 91 Respiratory Rate 19 21 H Blood Pressure 81/48 L 78/46 L Pulse Oximetry 97 97 Oxygen Delivery Oxygen Flow Rate Fraction of Inspired Oxygen 08/08/24 06:41 08/08/24 07:00 08/08/24 07:30 Temperature 96.6 F L Pulse Rate 92 86 84 Respiratory Rate 19 Blood Pressure 79/48 L 80/45 L 100/58 L Pulse Oximetry 99 Oxygen Delivery Oxygen Flow Rate Fraction of Inspired Oxygen 08/08/24 08:00 08/08/24 08:00 08/08/24 08:03 Temperature Pulse Rate 88 88 83 Respiratory Rate 18 19 Blood Pressure 90/48 L Pulse Oximetry 98 97 Oxygen Delivery Room Air Oxygen Flow Rate Fraction of Inspired Oxygen 08/08/24 08:22 08/08/24 09:43 08/08/24 09:47 Temperature Pulse Rate 91 94 Respiratory Rate Blood Pressure 76/43 L 89/53 L Pulse Oximetry 98 Oxygen Delivery Room Air Oxygen Flow Rate Fraction of Inspired Oxygen 21 08/08/24 10:00 08/08/24 10:01 Temperature 97.8 F Pulse Rate 90 89 Respiratory Rate 20 Blood Pressure 82/45 L Pulse Oximetry 96 Oxygen Delivery Oxygen Flow Rate Fraction of Inspired Oxygen Intake/Output Intake/Output: Intake & Output 08/05/24 08/06/24 08/08/24 08/08/24 23:59 23:59 00:59 23:59 Intake Total 3058.3 2100 2950 2612.3 Output Total 1005 2825 236 945 Balance 3783.3 -489 9041 1667.3 Meds/Results Medications: Active Medications Generic Name Dose Route Start Last Admin Trade Name Freq PRN Reason Stop Dose Admin Dextrose 12.5 gm 08/03/24 15:41 Dextrose 50% 25 Gm/50 Ml Syringe IV PUSH PRN PRN Hypoglycemia Protocol Enoxaparin Sodium 40 mg 08/05/24 09:00 08/08/24 09:34 Enoxaparin 40 Mg/0.4 Ml Syringe SUB-Q 40 mg DAILY MORGAN Administration Glucagon 1 mg 08/03/24 15:41 Glucagon For Inj 1 Mg Vial IM PRN PRN Hypoglycemia Protocol Glucose 15 gm 08/03/24 15:41 Glucose Oral Gel 15 Gm Of Glucse In 37.5 Gm Tube PO PRN PRN Hypoglycemia Protocol Dextrose 1,000 mls @ 100 mls/hr 08/03/24 15:41 Dextrose 5% 1,000 Ml IVPB PRN PRN Hypoglycemia Protocol Ibuprofen 800 mg in 200 mls @ 400 mls/hr 08/08/24 05:45 08/08/24 08:17 Caldolor 800 Mg/200 Ml IVPB Infused Q6H PRN Infusion Breakthrough Pain Rated 1-3 or NPO Norepinephrine Bitartrate 8 mg in 250 mls @ 20.625 mls/hr 08/08/24 06:30 08/08/24 09:47 Levophed 8 Mg/D5w 250 Ml IV CONT 11 mcg/min .Q12H8M MORGAN 20.63 mls/hr Titration Protocol 11 MCG/MIN Potassium Chloride 100 mls @ 25 mls/hr 08/08/24 08:35 Kcl 40 Meq/Water 100 Ml IVPB 08/08/24 12:34 ONCE ONE Dextrose/Sodium Chloride 1,000 mls @ 100 mls/hr 08/08/24 08:40 Dextrose 5% Sodium Chloride 0.45% IV CONT .Q10H MORGAN Albumin Human 100 mls @ 60 mls/hr 08/08/24 12:00 Albutein IVPB 08/09/24 07:39 Q6HR MORGAN Albumin Human 250 mls @ 62.5 mls/hr 08/08/24 09:00 08/08/24 10:53 Albumin Human 5% IV CONT 08/08/24 12:59 62.5 mls/hr .Q4H ONE Administration Piperacillin/Tazobactam/Dextrose 3.375 gm in 50 mls @ 100 mls/hr 08/08/24 10:05 Zosyn 3.375 Gm/Ns 50 Ml IVPB Q6HR MORGAN Lidocaine 1 patch 08/04/24 10:25 08/08/24 00:44 Lidocaine 5% Patch TRANSDERM 1 patch DAILY MORGAN Administration Morphine Sulfate 2 mg 08/08/24 05:45 Morphine Sulfate (*Crx) 2 Mg/Ml Inj IV PUSH Q2H PRN Breakthrough Pain Rated 4-6 or NPO Morphine Sulfate 4 mg 08/08/24 05:45 Morphine Sulfate (*Crx) 4 Mg/Ml Inj IV PUSH Q2H PRN Breakthrough Pain Rated 7-10 or NPO Naloxone HCl 0.1 mg 08/08/24 05:45 Naloxone Hcl 0.4 Mg/Ml Vial IV PUSH Q2M PRN Opiate Reversal Ondansetron HCl 4 mg 08/03/24 15:38 08/07/24 20:18 Ondansetron Inj 4 Mg/2 Ml Vial IV PUSH 4 mg Q4H PRN Administration Nausea Pantoprazole Sodium 40 mg 08/04/24 09:00 08/08/24 09:21 Pantoprazole Sodium Iv 40 Mg Vial IV PUSH 40 mg QAM MORGAN Administration Perflutren Lipid Microsphere 0 ml 08/08/24 08:45 Perflutren Lipid Microspheres 1.5 Ml Vial Diluted To 10 Ml Total Volume IV PUSH 08/11/24 08:46 ONCE PRN adequate visualization Protocol Phenytoin Sodium 225 mg 08/07/24 21:15 08/08/24 09:20 Phenytoin Sod 250 Mg/5 Ml Vial (*Bkc) IV PUSH 225 mg Q12HR MORGAN Administration Sodium Chloride 20 ml 08/06/24 23:57 08/07/24 06:05 Central Line Flush IV PUSH 20 ml PRN PRN Administration after blood draws Sodium Chloride 10 ml 08/06/24 23:57 Central Line Flush IV PUSH PRN PRN with TPN bag changes Sodium Chloride 10 ml 08/07/24 06:00 08/08/24 05:53 Central Line Flush IV PUSH 10 ml Q8HR MORGAN Administration Radiology Results: ITS Impressions Chest X-Ray 08/06/24 19:41 IMPRESSION: No acute cardiopulmonary pathology. Abdomen X-Ray 08/08/24 05:43 Impression: NG tube in place, as above. Marked gaseous distention of several probable dilated small bowel loops. Correlate for small bowel obstruction versus ileus. Abdomen/Pelvis CT 08/08/24 06:07 Impression: Findings highly suspicious for extensive bowel ischemia, extensive small bowel and gastric pneumatosis and extensive portal venous gas. Extensive dilatation of small bowel loops and stomach with decompression of large bowel. Transition point not well delineated, but findings are highly suspicious for distal small bowel obstruction. NG tube tip at the GE junction. Further advancement of NG tube into the stomach is required for adequate placement. Small bilateral pleural effusions. Labs Labs: Laboratory Results - last 24 hr 08/08/24 08/08/24 08/08/24 00:34 01:55 05:04 WBC RBC Hgb Hct MCV MCH MCHC RDW Plt Count MPV % Immature Plt Fraction Sodium 142 Potassium 3.3 L Chloride 115 H Carbon Dioxide 17 L Anion Gap 10 BUN 15 D Creatinine 0.72 Estim Creat Clear Calc Not Reportable Estimated GFR > 60 Glucose 91 Lactic Acid 2.2 H 3.1 H Calcium 7.8 L Phosphorus 2.7 Magnesium 1.6 Total Bilirubin 0.7 AST 57 H ALT 39 H Alkaline Phosphatase 88 NT-Pro-B Natriuret Pep Total Protein 5.0 L Albumin 2.5 L Procalcitonin Blood Type A Positive Antibody Screen Negative 08/08/24 08/08/24 05:45 09:18 WBC 12.5 H RBC 3.72 L Hgb 12.1 Hct 37.4 MCV 100.5 H MCH 32.5 MCHC 32.4 RDW 14.1 Plt Count 108 L MPV 9.9 % Immature Plt Fraction 2.6 Sodium Potassium Chloride Carbon Dioxide Anion Gap BUN Creatinine Estim Creat Clear Calc Estimated GFR Glucose Lactic Acid 3.3 H Calcium Phosphorus Magnesium Total Bilirubin AST ALT Alkaline Phosphatase NT-Pro-B Natriuret Pep 3400 H Total Protein Albumin Procalcitonin 4.7 Blood Type Antibody Screen
[2024-08-08 11:44] LABS: Glucose Point of Care 101 mg/dl (65-105)
[2024-08-08] MEDS: VASOPRESSIN INJ 100 UNITS in DEXTROSE 5% 95 ML IV CONT (12:07)
[2024-08-08] MEDS: DEXTROSE 5%/0.45% SOD CHL 1,000 ML 100 ML IV CONT (12:28)
[2024-08-08] MEDS: KCL 40 MEQ/WATER 100 ML 100 ML 25 ML IVPB (12:28)
--- NOTE | 2024-08-08 12:37 | P.PNIM_ITS ---
Progress Note: A&P Assessment and Plan (1) Small bowel obstruction: Code(s): K56.609 - Unspecified intestinal obstruction, unspecified as to partial versus complete obstruction Status: Acute Assessment and Plan: Status post 08/03 Open incarcerated left femoral hernia repair without mesh 08/08 Exploratory laparotomy, gastrostomy tube placement Gastric outlet obstruction and abdominal compartment syndrome continue NG tube suction WIll consider TPN from tomorrow NPO, IVF Gen surgery following (2) Ileus, postoperative: Code(s): K91.89 - Other postprocedural complications and disorders of digestive system; K56.7 - Ileus, unspecified Status: Acute Assessment and Plan: See above (3) Incarcerated left inguinal hernia: Code(s): K40.30 - Unilateral inguinal hernia, with obstruction, without gangrene, not specified as recurrent Status: Acute Assessment and Plan: See above (4) EULALIO (acute kidney injury): Code(s): N17.9 - Acute kidney failure, unspecified Status: Acute Assessment and Plan: Creatinine improved with IV fluids. Monitor urine output electrolytes and creatinine (5) Sepsis: Code(s): A41.9 - Sepsis, unspecified organism Status: Acute Assessment and Plan: Continue Zosyn Check UA obtained blood cultures Check procalcitonin (6) Shock: Code(s): R57.9 - Shock, unspecified Status: Acute Assessment and Plan: Secondary to sepsis versus intravascular volume depletion. Continue IV fluids but at a cautious rate At 25% albumin, ZOsyn Continue Levophed Check echocardiogram procalcitonin and BNP (7) Seizures: Code(s): R56.9 - Unspecified convulsions Status: Chronic Assessment and Plan: Continue IV phenytoin (8) Electrolyte abnormality: Code(s): E87.8 - Other disorders of electrolyte and fluid balance, not elsewhere classified Status: Acute Assessment and Plan: Change fluids to half-normal saline Replace potassium magnesium and calcium Plan DVT prophylaxis -Lovenox Stress ulcer prophylaxis -Protonix Nutrition - npo Code Status - Full Code Subjective Date/time seen: 08/08/24 12:37 Interval history: Patient was comfortable at bedside Overnight, patient complained of abd pain and swelling last night and CT AP showed SBP and possible bowel ischemia, she was taken emergently to the OR for EX lap and Gastric outlet obstruction and abdominal compartment syndrome was noted. PEG tube was placed and patient transferred to ICU. currently on pressor support. Review of Systems Review of Systems: All systems reviewed & are unremarkable except as noted in HPI and below (HPI) Exam Narrative: General: Frail old female who looks older than her age. She drowsy and no significant distress Lungs/Chest: Trachea central Clear BS B/L, No crackles or wheezing. Mild tachypnea Cardiac: RRR. Normal S1 S2. No murmurs Circulation: The feet are warm Abdomen: Hypo at bowel sounds.. Diffuse tenderness to palpation, gastrostomy tube in place, incision under dressing Extremities: No clubbing or cyanosis, bilateral edema present : Khanna in place Neurologic: Follows commands. Moves all 4 extremities PERRL Skin: No Rash Const: General: comfortable and no acute distress Other: The patient is recumbent in a stretcher in the PACU. , female, elderly, modestly ill-appearing. +fatigue. HENMT: Face/Nose/Sinus: Normal nares present Mouth: Yes dry mucous membranes Other: NG in place. Eyes: General: appearance normal, both eyes and all related structures Sclera: sclerae normal Pupils: Equal, round and reactive pupils present EOM: EOMs intact bilaterally Resp: Effort & Inspection: normal respiratory effort Auscultation: clear to auscultation bilaterally Cardio: Rate: regular rate Rhythm: regular rhythm Other: S1-S2 present without murmur, rub, ectopy GI: Other: Abdomen firm, distended. bowel sounds present, Drain in place, serosanguineous output. Skin: General skin exam: normal color and no rashes or lesions noted Wounds: no wounds Neuro: Cranial nerves: Yes Equal, round and reactive pupils present Speech: normal speech Motor exam (neuro): 5/5 motor strength present throughout Sensory Exam: normal sensation Other: A&O x4, mildly somnolent. Extrem: General: normal to inspection Psych: Mental Status: mental status grossly normal Affect: normal affect Other: Good insight and judgment, pleasant Objective Data Vital Signs Vital Signs: Vital Signs - 24 hr 08/07/24 14:00 08/07/24 15:37 08/07/24 16:00 Temperature 98.9 F Pulse Rate 82 69 69 Respiratory Rate 14 Blood Pressure 117/56 L Pulse Oximetry 98 Oxygen Delivery Oxygen Flow Rate Fraction of Inspired Oxygen 08/07/24 18:00 08/07/24 20:00 08/07/24 20:00 Temperature Pulse Rate 75 86 Respiratory Rate Blood Pressure Pulse Oximetry Oxygen Delivery Room Air Oxygen Flow Rate Fraction of Inspired Oxygen 08/07/24 20:20 08/07/24 22:00 08/07/24 23:30 Temperature 97.8 F Pulse Rate 73 91 Respiratory Rate 20 Blood Pressure 129/70 Pulse Oximetry 100 Oxygen Delivery Room Air Oxygen Flow Rate Fraction of Inspired Oxygen 08/07/24 23:56 08/08/24 00:00 08/08/24 01:45 Temperature 98.6 F 98.0 F Pulse Rate 92 97 113 H Respiratory Rate 22 H 28 H Blood Pressure 147/74 H 153/103 H Pulse Oximetry 98 92 Oxygen Delivery Nasal Cannula Oxygen Flow Rate 2 Fraction of Inspired Oxygen 08/08/24 03:15 08/08/24 03:30 08/08/24 03:45 Temperature 97.0 F L Pulse Rate 90 85 81 Respiratory Rate 19 20 18 Blood Pressure 99/55 L 104/59 L 103/56 L Pulse Oximetry 100 100 100 Oxygen Delivery Simple Face Mask Simple Face Mask Simple Face Mask Oxygen Flow Rate 8 8 8 Fraction of Inspired Oxygen 08/08/24 04:00 08/08/24 04:00 08/08/24 04:15 Temperature Pulse Rate 81 81 Respiratory Rate 14 14 Blood Pressure 97/55 L 94/55 L Pulse Oximetry 99 97 100 Oxygen Delivery Nasal Cannula Nasal Cannula Nasal Cannula Oxygen Flow Rate 2 2 2 Fraction of Inspired Oxygen 08/08/24 04:45 08/08/24 04:45 08/08/24 05:00 Temperature 96.8 F L Pulse Rate 90 90 85 Respiratory Rate 17 15 Blood Pressure 104/61 93/50 L Pulse Oximetry 98 99 Oxygen Delivery Oxygen Flow Rate Fraction of Inspired Oxygen 08/08/24 05:45 08/08/24 06:00 08/08/24 06:00 Temperature 96.7 F L Pulse Rate 89 89 89 Respiratory Rate 19 19 Blood Pressure 86/49 L 81/48 L Pulse Oximetry 97 97 Oxygen Delivery Oxygen Flow Rate Fraction of Inspired Oxygen 08/08/24 06:30 08/08/24 06:41 08/08/24 07:00 Temperature Pulse Rate 91 92 86 Respiratory Rate 21 H Blood Pressure 78/46 L 79/48 L 80/45 L Pulse Oximetry 97 Oxygen Delivery Oxygen Flow Rate Fraction of Inspired Oxygen 08/08/24 07:30 08/08/24 08:00 08/08/24 08:00 Temperature 96.6 F L Pulse Rate 84 88 88 Respiratory Rate 19 18 Blood Pressure 100/58 L Pulse Oximetry 99 98 Oxygen Delivery Room Air Oxygen Flow Rate Fraction of Inspired Oxygen 08/08/24 08:03 08/08/24 08:22 08/08/24 09:43 Temperature Pulse Rate 83 91 Respiratory Rate 19 Blood Pressure 90/48 L 76/43 L Pulse Oximetry 97 98 Oxygen Delivery Room Air Oxygen Flow Rate Fraction of Inspired Oxygen 21 08/08/24 09:47 08/08/24 10:00 08/08/24 10:01 Temperature 97.8 F Pulse Rate 94 90 89 Respiratory Rate 20 Blood Pressure 89/53 L 82/45 L Pulse Oximetry 96 Oxygen Delivery Oxygen Flow Rate Fraction of Inspired Oxygen 08/08/24 11:00 08/08/24 11:30 08/08/24 11:35 Temperature Pulse Rate 94 92 95 Respiratory Rate Blood Pressure 84/46 L 75/48 L 73/47 L Pulse Oximetry Oxygen Delivery Oxygen Flow Rate Fraction of Inspired Oxygen 08/08/24 12:00 08/08/24 12:00 08/08/24 12:00 Temperature 96.4 F L Pulse Rate 92 90 94 Respiratory Rate 19 22 H Blood Pressure 73/45 L 73/46 L Pulse Oximetry 95 94 Oxygen Delivery Room Air Oxygen Flow Rate Fraction of Inspired Oxygen 08/08/24 12:05 08/08/24 12:07 Temperature Pulse Rate 93 96 Respiratory Rate Blood Pressure 74/46 L 80/49 L Pulse Oximetry Oxygen Delivery Oxygen Flow Rate Fraction of Inspired Oxygen Intake/Output Intake/Output: Intake & Output 08/05/24 08/06/24 08/08/24 08/08/24 23:59 23:59 00:59 23:59 Intake Total 3058.3 2100 2950 2668.2 Output Total 1005 3445 598 945 Balance 3953.3 -172 3781 1723.2 Meds/Results Medications: Active Medications Generic Name Dose Route Start Last Admin Trade Name Freq PRN Reason Stop Dose Admin Dextrose 12.5 gm 08/03/24 15:41 Dextrose 50% 25 Gm/50 Ml Syringe IV PUSH PRN PRN Hypoglycemia Protocol Enoxaparin Sodium 40 mg 08/05/24 09:00 08/08/24 09:34 Enoxaparin 40 Mg/0.4 Ml Syringe SUB-Q 40 mg DAILY MORGAN Administration Glucagon 1 mg 08/03/24 15:41 Glucagon For Inj 1 Mg Vial IM PRN PRN Hypoglycemia Protocol Glucose 15 gm 08/03/24 15:41 Glucose Oral Gel 15 Gm Of Glucse In 37.5 Gm Tube PO PRN PRN Hypoglycemia Protocol Hydrocortisone Sodium Succinate 100 mg 08/08/24 14:00 Hydrocortisone Sodium Succinate 100 Mg/2 Ml Vial IV PUSH Q8HR MORGAN Dextrose 1,000 mls @ 100 mls/hr 08/03/24 15:41 Dextrose 5% 1,000 Ml IVPB PRN PRN Hypoglycemia Protocol Ibuprofen 800 mg in 200 mls @ 400 mls/hr 08/08/24 05:45 08/08/24 08:17 Caldolor 800 Mg/200 Ml IVPB Infused Q6H PRN Infusion Breakthrough Pain Rated 1-3 or NPO Norepinephrine Bitartrate 8 mg in 250 mls @ 39.375 mls/hr 08/08/24 06:30 08/08/24 12:05 Levophed 8 Mg/D5w 250 Ml IV CONT 21 mcg/min .[id number] MORGAN 39.38 mls/hr Titration Protocol 21 MCG/MIN Potassium Chloride 100 mls @ 25 mls/hr 08/08/24 08:35 Kcl 40 Meq/Water 100 Ml IVPB 08/08/24 12:34 ONCE ONE Dextrose/Sodium Chloride 1,000 mls @ 100 mls/hr 08/08/24 08:40 Dextrose 5% Sodium Chloride 0.45% IV CONT .Q10H MORGAN Albumin Human 250 mls @ 62.5 mls/hr 08/08/24 09:00 08/08/24 10:53 Albumin Human 5% IV CONT 08/08/24 12:59 62.5 mls/hr .Q4H ONE Administration Piperacillin/Tazobactam/Dextrose 3.375 gm in 50 mls @ 100 mls/hr 08/08/24 10:05 Zosyn 3.375 Gm/Ns 50 Ml IVPB Q6HR MORGAN Albumin Human 100 mls @ 60 mls/hr 08/08/24 18:00 Albutein IVPB 08/09/24 13:39 Q6HR MORGAN Vasopressin 100 units/ 100 mls @ 2.4 mls/hr 08/08/24 12:00 08/08/24 12:07 Dextrose IV CONT 0.04 units/min .[id number] MORGAN 2.4 mls/hr Administration Protocol 0.04 UNITS/MIN Lidocaine 1 patch 08/04/24 10:25 08/08/24 00:44 Lidocaine 5% Patch TRANSDERM 1 patch DAILY MORGAN Administration Morphine Sulfate 2 mg 08/08/24 05:45 Morphine Sulfate (*Crx) 2 Mg/Ml Inj IV PUSH Q2H PRN Breakthrough Pain Rated 4-6 or NPO Morphine Sulfate 4 mg 08/08/24 05:45 Morphine Sulfate (*Crx) 4 Mg/Ml Inj IV PUSH Q2H PRN Breakthrough Pain Rated 7-10 or NPO Naloxone HCl 0.1 mg 08/08/24 05:45 Naloxone Hcl 0.4 Mg/Ml Vial IV PUSH Q2M PRN Opiate Reversal Ondansetron HCl 4 mg 08/03/24 15:38 08/07/24 20:18 Ondansetron Inj 4 Mg/2 Ml Vial IV PUSH 4 mg Q4H PRN Administration Nausea Pantoprazole Sodium 40 mg 08/04/24 09:00 08/08/24 09:21 Pantoprazole Sodium Iv 40 Mg Vial IV PUSH 40 mg QAM MORGAN Administration Perflutren Lipid Microsphere 0 ml 08/08/24 08:45 Perflutren Lipid Microspheres 1.5 Ml Vial Diluted To 10 Ml Total Volume IV PUSH 08/11/24 08:46 ONCE PRN adequate visualization Protocol Phenytoin Sodium 225 mg 08/07/24 21:15 08/08/24 09:20 Phenytoin Sod 250 Mg/5 Ml Vial (*Bkc) IV PUSH 225 mg Q12HR MORGAN Administration Sodium Chloride 20 ml 08/06/24 23:57 08/07/24 06:05 Central Line Flush IV PUSH 20 ml PRN PRN Administration after blood draws Sodium Chloride 10 ml 08/06/24 23:57 Central Line Flush IV PUSH PRN PRN with TPN bag changes Sodium Chloride 10 ml 08/07/24 06:00 08/08/24 05:53 Central Line Flush IV PUSH 10 ml Q8HR MORGAN Administration Radiology Results: ITS Impressions Chest X-Ray 08/06/24 19:41 IMPRESSION: No acute cardiopulmonary pathology. Abdomen X-Ray 08/08/24 05:43 Impression: NG tube in place, as above. Marked gaseous distention of several probable dilated small bowel loops. Correla te for small bowel obstruction versus ileus. Abdomen/Pelvis CT 08/08/24 06:07 Impression: Findings highly suspicious for extensive bowel ischemia, extensive small bowel and gastric pneumatosis and extensive portal venous gas. Extensive dilatation of small bowel loops and stomach with decompression of large bowel. Transition point not well delineated, but findings are highly suspicious for distal small bowel obstruction. NG tube tip at the GE junction. Further advancement of NG tube into the stomach is required for adequate placement. Small bilateral pleural effusions. Labs Labs: Laboratory Results - last 24 hr 08/08/24 08/08/24 08/08/24 00:34 01:55 05:04 WBC RBC Hgb Hct MCV MCH MCHC RDW Plt Count MPV % Immature Plt Fraction Sodium 142 Potassium 3.3 L Chloride 115 H Carbon Dioxide 17 L Anion Gap 10 BUN 15 D Creatinine 0.72 Estim Creat Clear Calc Not Reportable Estimated GFR > 60 Glucose 91 POC Capillary Glucose Lactic Acid 2.2 H 3.1 H Calcium 7.8 L Phosphorus 2.7 Magnesium 1.6 Total Bilirubin 0.7 AST 57 H ALT 39 H Alkaline Phosphatase 88 NT-Pro-B Natriuret Pep Total Protein 5.0 L Albumin 2.5 L Procalcitonin Blood Type A Positive Antibody Screen Negative 08/08/24 08/08/24 08/08/24 05:45 09:18 11:39 WBC 12.5 H RBC 3.72 L Hgb 12.1 Hct 37.4 MCV 100.5 H MCH 32.5 MCHC 32.4 RDW 14.1 Plt Count 108 L MPV 9.9 % Immature Plt Fraction 2.6 Sodium Potassium Chloride Carbon Dioxide Anion Gap BUN Creatinine Estim Creat Clear Calc Estimated GFR Glucose POC Capillary Glucose 101 Lactic Acid 3.3 H Calcium Phosphorus Magnesium Total Bilirubin AST ALT Alkaline Phosphatase NT-Pro-B Natriuret Pep 3400 H Total Protein Albumin Procalcitonin 4.7 Blood Type Antibody Screen Quality VTE Prophylaxis VTE prophylaxis: mechanical ordered
[2024-08-08] MEDS: HYDROCORTISONE SODIUM SUCCINATE 100 MG/2 ML VIAL IV PUSH ×2 (13:15→21:10)
--- NOTE | 2024-08-08 13:35 | PCPTNOTE ---
The patient treatment was not able to be completed today due to changing in medical condition. Patient was transferred to ICU. Will plan to continue treatment per plan of care when medically able.
[2024-08-08] MEDS: KCL 20 MEQ/D5/0.45% SOD CHL 1,000 ML 50 ML IV CONT (15:09)
[2024-08-08] MEDS: NOREPINEPHRINE 8 MG/D5W 250 ML 8 MG/250 ML BAG 41.25 MG IV CONT (15:09)
--- NOTE | 2024-08-08 15:32 | PCOTNOTE ---
Patient has had a change in medical condition, Patient had a Rapid Response called and transferred to ICU. Per RN, not to be seen this date, follow up when medically ready.
[2024-08-08 18:24] LABS: Add Urine Microscopic? YES; Appearance Urine Cloudy (Clear); Bacteria Urine None Seen /hpf; Bilirubin Urine Negative (Negative); Blood Urine 1+ (Negative); Color Urine Dark Yellow (Yellow); Glucose Urine UA Trace mg/dL (Negative); Hyaline Casts Urine Present /lpf; Ketones Urine 1+ mg/dL (Negative); Leukocyte Esterase Ur Negative LEU/UL (Negative); Nitrate Urine Negative (Negative); Non Pathogenic Casts >20; Protein Urine 2+ mg/dL (Negative); RBC Urine 0-2 /hpf (0-2); Specific Grav Ur 1.028 (1.001-1.035); Squamous Epithelial Cell Urine Many /hpf (Few); WBC Urine 0-5 /hpf (0-3); pH Urine 5.5 (5.0-9.0)
[2024-08-08 18:26] LABS: Lactic Acid Reflex 2.2 mmol/L (0.7-2.0)
[2024-08-08 21:08] LABS: Reflex Lactic Acid Yes or No Add Lactic
[2024-08-08] MEDS: NOREPINEPHRINE 8 MG/D5W 250 ML 8 MG/250 ML BAG 22.5 MG IV CONT (22:41)
[2024-08-08 23:54] LABS: Lactic Acid 1.5 mmol/L (0.7-2.0)
[2024-08-09] VITALS (28 sets, daily range): BP systolic 98–134; BP diastolic 47–76; PULSE 67–98; RESP 20–27; TEMP 36.2–37; O2SAT 89–97; BMI 28.5
[2024-08-09] MEDS: ALBUMIN HUMAN 25% 25 GM/100 ML 100 ML IVPB ×2 (00:06→05:19)
[2024-08-09] MEDS: PIPERACILLN/TAZ 3.375GM/NS50ML 3.375 GM/50 ML BAG IVPB ×4 (00:08→17:58)
[2024-08-09] MEDS: MORPHINE SULFATE (*CRX) 2 MG/ML INJ IV PUSH (03:21)
[2024-08-09 04:57] LABS: Hematocrit 26.1 % (37.0-47.0); Hemoglobin 8.7 g/dL (12.0-15.0); Immature Platelet Fraction Pct 3.3 % (0.9-11.2); Mean Corpuscular HGB Conc 33.3 g/dl (32-36); Mean Corpuscular Hemoglobin 33.3 pg (26-34); Mean Platelet Volume 10.5 fl (7.4-10.4); Platelet Count Result 59 k/mm3 (150-375); Red Blood Count 2.61 M/mm3 (4.2-5.4); Red Cell Distribution Width 14.2 % (11.5-14.5); White Blood Count 10.9 K/mm3 (4.5-10.0)
[2024-08-09 05:06] LABS: Alanine Aminotransferase 45 U/L (6-35); Albumin Level 2.7 g/dL (3.5-5.1); Alkaline Phosphatase 52 U/L (38-126); Anion Gap 9 mmol/L (4-12); Aspartate Amino Transferase 55 U/L (14-36); Bilirubin,Total 0.6 mg/dL (0.2-1.3); Blood Urea Nitrogen 15 mg/dL (7-17); Calcium 7.6 mg/dL (8.4-10.2); Carbon Dioxide 22 mmol/L (22-30); Chloride 109 mmol/L (98-107); Estimated Glomerular Filt Rate > 60; Glucose 250 mg/dL (65-110); Magnesium 1.8 mg/dL (1.6-2.3); Potassium 3.7 mmol/L (3.4-5.0); Sodium 140 mmol/L (137-145)
[2024-08-09] MEDS: HYDROCORTISONE SODIUM SUCCINATE 100 MG/2 ML VIAL IV PUSH ×3 (05:19→22:41)
[2024-08-09] MEDS: CENTRAL LINE FLUSH 10 ML IV PUSH ×3 (05:20→22:41)
[2024-08-09 05:25] LABS: Alveolar/Arterial O2 Gradient 53.2 mmHg; Base Excess ABG -1.4 mEq/l (+/-2.0); Fractional Inspired Oxygen 21 %; HCO3 ABG 21.8 mEq/l (22.0-26.0); Oxygen Content ABG 12.6 %vol (16.0-22.0); Oxygen Saturation ABG 92.5 % (95.0-100.0); Oxyhemoglobin 91.4 % THb (90.0-100.0); PO2 ABG 59.4 mmHg (80.0-100.0); PO2 FiO2 Ratio Arterial Blood 2.83 %; Total Hemoglobin 9.8 g/dL (12.0-18.0); pH ABG 7.465 (7.350-7.450)
[2024-08-09 05:28] LABS: Device ROOM AIR; Modified Allen's Test Pass; Site Drawn LEFT RADIAL
[2024-08-09] MEDS: FUROSEMIDE INJ 40 MG/4 ML VIAL IV PUSH (08:26)
[2024-08-09] MEDS: PANTOPRAZOLE SODIUM IV 40 MG VIAL IV PUSH (08:34)
[2024-08-09] MEDS: PHENYTOIN SOD 250 MG/5 ML 225 MG IV PUSH ×2 (08:35→20:15)
[2024-08-09] MEDS: IBUPROFEN IV 800 MG/200 ML 800 MG/200 ML BAG 400 MG IVPB (08:36)
--- NOTE | 2024-08-09 09:15 | P.PNINT_ITS ---
Progress Note: A&P Assessment and Plan (1) Small bowel obstruction: Code(s): K56.609 - Unspecified intestinal obstruction, unspecified as to partial versus complete obstruction Status: Acute Assessment and Plan: Status post 08/03 Open incarcerated left femoral hernia repair without mesh 08/08 Exploratory laparotomy, gastrostomy tube placement Management per General surgery NG tube in place to suction Bowel rest Antibiotics as below General surgery eventually plans to obtain either a contrast study or EGD to evaluate for obstruction (2) Ileus, postoperative: Code(s): K91.89 - Other postprocedural complications and disorders of digestive system; K56.7 - Ileus, unspecified Status: Acute Assessment and Plan: See above (3) Incarcerated left inguinal hernia: Code(s): K40.30 - Unilateral inguinal hernia, with obstruction, without gangrene, not specified as recurrent Status: Acute Assessment and Plan: See above (4) EULALIO (acute kidney injury): Code(s): N17.9 - Acute kidney failure, unspecified Status: Acute Assessment and Plan: Creatinine improved with IV fluids. Hold further IV fluids to volume overload. Will give Lasix Monitor urine output electrolytes and creatinine (5) Sepsis: Code(s): A41.9 - Sepsis, unspecified organism Status: Acute Assessment and Plan: Continue Zosyn Un remark UA blood cultures pending Check procalcitonin 4.7 (6) Shock: Code(s): R57.9 - Shock, unspecified Status: Acute Assessment and Plan: Secondary to sepsis versus intravascular volume depletion. Improved and patient is now off of vasopressors Will hold further IV fluids (7) Seizures: Code(s): R56.9 - Unspecified convulsions Status: Chronic Assessment and Plan: Continue IV phenytoin (8) Electrolyte abnormality: Code(s): E87.8 - Other disorders of electrolyte and fluid balance, not elsewhere classified Status: Acute Assessment and Plan: Change fluids to half-normal saline Replace potassium magnesium and calcium (9) Pulmonary edema: Code(s): J81.1 - Chronic pulmonary edema Status: Acute Assessment and Plan: Chest x-ray shows pulmonary edema. Elevated BNP Echo reviewed Hold further fluids Will give Lasix IV Plan DVT prophylaxis -hold Lovenox due to thrombocytopenia, SCD Stress ulcer prophylaxis -Protonix Nutrition - npo Code Status - Full Code Incentive spirometry Spoke to and updated patient and her daughter at bedside Total Critical Care Time - 30 minutes Due to a high probability of clinically significant, life threatening deterioration, the patient required my highest level of preparedness to intervene emergently and I personally spent this critical care time directly and personally managing the patient. This critical care time included obtaining a history; examining the patient; pulse oximetry; ordering and review of studies; arranging urgent treatment with development of a management plan; evaluation of patient's response to treatment; frequent reassessment; and discussions with other providers. It was exclusive of separately billable procedures and treating other patients and teaching time. Please see Assessment and Plan section and the rest of the note for further information on patient assessment and treatment Subjective Date/time seen: 08/09/24 Overnight events reviewed. Afebrile On room air but increased work of breathing this morning. She is slightly tachypneic. She has been weaned off of vasopressors overnight. She continues to be on IV fluids. Urine output has improved. She states her abdominal is better but she still is uncomfortable. She denies any pain. She denies any shortness of breath. She does have some cough. Unable to cough up anything. Abdominal pain with deep breathing and coughing. All other systems were reviewed were negative Other Vitals acceptable Review of Systems Review of Systems: All systems reviewed & are unremarkable except as noted in HPI and below (HPI) Exam Narrative: General: Frail old female who looks older than her age. She is awake and no significant distress Lungs/Chest: Trachea central Clear BS B/L, No crackles or wheezing. Mild tachypnea Cardiac: RRR. Normal S1 S2. No murmurs Circulation: The feet are warm Abdomen: Absent bowel sounds.. Mild tenderness to palpation, gastrostomy tube in place, incision under dressing Extremities: No clubbing or cyanosis, bilateral edema present : Khanna in place Neurologic: Follows commands. Moves all 4 extremities PERRL AO x3 Skin: No Rash Objective Data Vital Signs Vital Signs: Vital Signs - 24 hr 08/08/24 09:43 08/08/24 09:47 08/08/24 10:00 Temperature Pulse Rate 91 94 90 Respiratory Rate Blood Pressure 76/43 L 89/53 L Pulse Oximetry Oxygen Delivery 08/08/24 10:00 08/08/24 10:01 08/08/24 11:00 Temperature 36.6 C Pulse Rate 89 89 94 Respiratory Rate 20 Blood Pressure 82/45 L 84/46 L Pulse Oximetry 96 Oxygen Delivery 08/08/24 11:30 08/08/24 11:35 08/08/24 12:00 Temperature Pulse Rate 92 95 92 Respiratory Rate Blood Pressure 75/48 L 73/47 L 73/45 L Pulse Oximetry Oxygen Delivery 08/08/24 12:00 08/08/24 12:00 08/08/24 12:00 Temperature 35.8 C L Pulse Rate 90 94 92 Respiratory Rate 19 22 H Blood Pressure 73/46 L Pulse Oximetry 95 94 Oxygen Delivery Room Air 08/08/24 12:05 08/08/24 12:07 08/08/24 12:25 Temperature Pulse Rate 93 96 90 Respiratory Rate Blood Pressure 74/46 L 80/49 L 82/44 L Pulse Oximetry Oxygen Delivery 08/08/24 13:44 08/08/24 14:00 08/08/24 14:00 Temperature Pulse Rate 83 76 87 Respiratory Rate Blood Pressure 119/65 Pulse Oximetry Oxygen Delivery 08/08/24 14:00 08/08/24 14:13 08/08/24 15:09 Temperature 36.7 C Pulse Rate 87 86 76 Respiratory Rate 22 H Blood Pressure 113/64 122/65 Pulse Oximetry 97 Oxygen Delivery 08/08/24 15:09 08/08/24 15:13 08/08/24 15:28 Temperature Pulse Rate 76 78 75 Respiratory Rate Blood Pressure 122/65 125/75 130/78 Pulse Oximetry Oxygen Delivery 08/08/24 16:00 08/08/24 16:00 08/08/24 16:00 Temperature 35.9 C L Pulse Rate 77 79 82 Respiratory Rate 23 H 18 Blood Pressure 111/76 Pulse Oximetry 97 95 Oxygen Delivery Room Air 08/08/24 16:00 08/08/24 16:00 08/08/24 16:45 Temperature Pulse Rate 85 79 85 Respiratory Rate Blood Pressure 126/78 Pulse Oximetry Oxygen Delivery 08/08/24 16:50 08/08/24 17:22 08/08/24 18:00 Temperature Pulse Rate 80 74 70 Respiratory Rate Blood Pressure 132/65 128/73 Pulse Oximetry Oxygen Delivery 08/08/24 18:00 08/08/24 18:00 08/08/24 20:00 Temperature Pulse Rate 87 76 73 Respiratory Rate Blood Pressure 96/81 L Pulse Oximetry Oxygen Delivery 08/08/24 20:00 08/08/24 20:00 08/08/24 20:00 Temperature Pulse Rate 78 78 Respiratory Rate Blood Pressure 96/81 L Pulse Oximetry 95 Oxygen Delivery Room Air 08/08/24 20:11 08/08/24 21:12 08/08/24 21:17 Temperature 37.6 C Pulse Rate 74 79 74 Respiratory Rate 24 H Blood Pressure 96/81 L 128/65 135/66 Pulse Oximetry 96 Oxygen Delivery 08/08/24 21:39 08/08/24 22:00 08/08/24 22:00 Temperature Pulse Rate 75 72 76 Respiratory Rate Blood Pressure 115/67 121/66 Pulse Oximetry Oxygen Delivery 08/08/24 22:00 08/08/24 22:41 08/08/24 22:41 Temperature Pulse Rate 76 77 77 Respiratory Rate Blood Pressure 121/66 131/66 131/66 Pulse Oximetry Oxygen Delivery 08/08/24 23:15 08/08/24 23:53 08/09/24 00:00 Temperature Pulse Rate 70 70 67 Respiratory Rate Blood Pressure 131/61 125/70 132/59 L Pulse Oximetry Oxygen Delivery 08/09/24 00:00 08/09/24 00:00 08/09/24 00:00 Temperature Pulse Rate 67 68 Respiratory Rate Blood Pressure 132/59 L Pulse Oximetry 97 Oxygen Delivery Room Air 08/09/24 00:14 08/09/24 00:21 08/09/24 00:43 Temperature 37.0 C Pulse Rate 68 71 69 Respiratory Rate 27 H Blood Pressure 132/59 L 127/57 L 134/64 Pulse Oximetry 95 Oxygen Delivery 08/09/24 00:48 08/09/24 01:04 08/09/24 01:16 Temperature Pulse Rate 68 68 75 Respiratory Rate Blood Pressure 121/62 114/60 119/68 Pulse Oximetry Oxygen Delivery 08/09/24 01:34 08/09/24 02:00 08/09/24 02:00 Temperature Pulse Rate 71 76 76 Respiratory Rate Blood Pressure 116/56 L 115/54 L 115/54 L Pulse Oximetry Oxygen Delivery 08/09/24 02:00 08/09/24 02:00 08/09/24 02:18 Temperature Pulse Rate 75 76 78 Respiratory Rate 26 H Blood Pressure 115/54 L 105/58 L Pulse Oximetry 93 Oxygen Delivery 08/09/24 02:43 08/09/24 03:01 08/09/24 03:17 Temperature Pulse Rate 77 77 98 Respiratory Rate Blood Pressure 108/50 L 108/48 L 112/63 Pulse Oximetry Oxygen Delivery 08/09/24 03:31 08/09/24 03:56 08/09/24 03:57 Temperature Pulse Rate 86 77 86 Respiratory Rate Blood Pressure 105/53 L 107/49 L 107/49 L Pulse Oximetry Oxygen Delivery 08/09/24 04:00 08/09/24 04:00 08/09/24 04:00 Temperature Pulse Rate 86 88 Respiratory Rate 24 H Blood Pressure 106/47 L Pulse Oximetry 93 89 L Oxygen Delivery Room Air 08/09/24 05:15 08/09/24 06:00 08/09/24 06:00 Temperature Pulse Rate 90 90 88 Respiratory Rate 25 H Blood Pressure 98/76 L 107/54 L Pulse Oximetry 94 Oxygen Delivery 08/09/24 06:00 08/09/24 08:00 Temperature 36.7 C Pulse Rate 93 80 Respiratory Rate 22 H 24 H Blood Pressure 107/54 L 112/51 L Pulse Oximetry 92 92 Oxygen Delivery Intake/Output Intake/Output: Intake & Output 08/06/24 08/08/24 08/08/24 08/09/24 23:59 00:59 23:59 23:59 Intake Total 2100 2950 4088.7 1352.6 Output Total 2825 236 1535 1050 Balance -725 2714 2553.7 302.6 Meds/Results Medications: Active Medications Generic Name Dose Route Start Last Admin Trade Name Freq PRN Reason Stop Dose Admin Dextrose 12.5 gm 08/09/24 07:57 Dextrose 50% 25 Gm/50 Ml Syringe IV PUSH PRN PRN Hypoglycemia Protocol Enoxaparin Sodium 40 mg 08/05/24 09:00 08/08/24 09:34 Enoxaparin 40 Mg/0.4 Ml Syringe SUB-Q 40 mg DAILY MORGAN Administration Glucagon 1 mg 08/09/24 07:57 Glucagon For Inj 1 Mg Vial IM PRN PRN Hypoglycemia Protocol Glucose 15 gm 08/09/24 07:57 Glucose Oral Gel 15 Gm Of Glucse In 37.5 Gm Tube PO PRN PRN Hypoglycemia Protocol Hydrocortisone Sodium Succinate 100 mg 08/08/24 14:00 08/09/24 05:19 Hydrocortisone Sodium Succinate 100 Mg/2 Ml Vial IV PUSH 100 mg Q8HR MORGAN Administration Ibuprofen 800 mg in 200 mls @ 400 mls/hr 08/08/24 05:45 08/09/24 08:36 Caldolor 800 Mg/200 Ml IVPB 400 mls/hr Q6H PRN Administration Breakthrough Pain Rated 1-3 or NPO Norepinephrine Bitartrate 8 mg in 250 mls @ 0 mls/hr 08/08/24 06:30 08/09/24 03:57 Levophed 8 Mg/D5w 250 Ml IV CONT Not Given .Q0M MORGAN Protocol 0 MCG/MIN Piperacillin/Tazobactam/Dextrose 3.375 gm in 50 mls @ 100 mls/hr 08/08/24 10:05 08/09/24 06:07 Zosyn 3.375 Gm/Ns 50 Ml IVPB Infused Q6HR MORGAN Infusion Dextrose 1,000 mls @ 100 mls/hr 08/09/24 07:57 Dextrose 5% 1,000 Ml IVPB PRN PRN Hypoglycemia Protocol Insulin Aspart 2 - 5 units 08/09/24 12:00 Insulin Aspart (*Bkc) 100 Units/Ml SUB-Q Q6HR [facility] Protocol Lidocaine 1 patch 08/04/24 10:25 08/09/24 08:35 Lidocaine 5% Patch TRANSDERM Not Given DAILY [facility] Morphine Sulfate 2 mg 08/08/24 05:45 08/09/24 03:21 Morphine Sulfate (*Crx) 2 Mg/Ml Inj IV PUSH 2 mg Q2H PRN Administration Breakthrough Pain Rated 4-6 or NPO Morphine Sulfate 4 mg 08/08/24 05:45 Morphine Sulfate (*Crx) 4 Mg/Ml Inj IV PUSH Q2H PRN Breakthrough Pain Rated 7-10 or NPO Naloxone HCl 0.1 mg 08/08/24 05:45 Naloxone Hcl 0.4 Mg/Ml Vial IV PUSH Q2M PRN Opiate Reversal Ondansetron HCl 4 mg 08/03/24 15:38 08/07/24 20:18 Ondansetron Inj 4 Mg/2 Ml Vial IV PUSH 4 mg Q4H PRN Administration Nausea Pantoprazole Sodium 40 mg 08/04/24 09:00 08/09/24 08:34 Pantoprazole Sodium Iv 40 Mg Vial IV PUSH 40 mg QAM MORGAN Administration Perflutren Lipid Microsphere 0 ml 08/08/24 08:45 Perflutren Lipid Microspheres 1.5 Ml Vial Diluted To 10 Ml Total Volume IV PUSH 08/11/24 08:46 ONCE PRN adequate visualization Protocol Phenytoin Sodium 225 mg 08/07/24 21:15 08/09/24 08:35 Phenytoin Sod 250 Mg/5 Ml Vial (*Bkc) IV PUSH 225 mg Q12HR MORGAN Administration Sodium Chloride 20 ml 08/06/24 23:57 08/07/24 06:05 Central Line Flush IV PUSH 20 ml PRN PRN Administration after blood draws Sodium Chloride 10 ml 08/06/24 23:57 Central Line Flush IV PUSH PRN PRN with TPN bag changes Sodium Chloride 10 ml 08/07/24 06:00 08/09/24 05:20 Central Line Flush IV PUSH 10 ml Q8HR MORGAN Administration Radiology Results: ITS Impressions Abdomen X-Ray 08/08/24 05:43 Impression: NG tube in place, as above. Marked gaseous distention of several probable dilated small bowel loops. Correlate for small bowel obstruction versus ileus. Abdomen/Pelvis CT 08/08/24 06:07 Impression: Findings highly suspicious for extensive bowel ischemia, extensive small bowel and gastric pneumatosis and extensive portal venous gas. Extensive dilatation of small bowel loops and stomach with decompression of large bowel. Transition point not well delineated, but findings are highly suspicious for distal small bowel obstruction. NG tube tip at the GE junction. Further advancement of NG tube into the stomach is required for adequate placement. Small bilateral pleural effusions. Chest X-Ray 08/09/24 06:33 Impression: Central congestive change and possible minimal bibasilar pulmonary edema. Correlate for pulmonary artery hypertension. Support tubes, as above. Labs Labs: Laboratory Results - last 24 hr 08/08/24 08/08/24 08/08/24 05:45 09:18 11:39 WBC 12.5 H RBC 3.72 L Hgb 12.1 Hct 37.4 MCV 100.5 H MCH 32.5 MCHC 32.4 RDW 14.1 Plt Count 108 L MPV 9.9 % Immature Plt Fraction 2.6 Puncture Site ABG pH ABG pCO2 ABG pO2 ABG PO2/FiO2 Ratio ABG HCO3 ABG O2 Saturation ABG O2 Content ABG Base Excess A-a Gradient Oxyhemoglobin Total Hemoglobin O2 Delivery Device O2 Liters/Min FiO2 Sodium Potassium Chloride Carbon Dioxide Anion Gap BUN Creatinine Estim Creat Clear Calc Estimated GFR Glucose POC Capillary Glucose 101 Lactic Acid 3.3 H Calcium Magnesium Total Bilirubin AST ALT Alkaline Phosphatase NT-Pro-B Natriuret Pep 3400 H Total Protein Albumin Procalcitonin 4.7 Urine Color Urine Appearance Urine pH Ur Specific [place] Urine Protein Urine Glucose (UA) Urine Ketones Ur Blood (Man) Urine Nitrate Urine Bilirubin Urine Urobilinogen Leukocyte Esterase Rfl Urine RBC Urine WBC Ur Squamous Epith Cells Urine Bacteria Urine Casts Hyaline Casts 08/08/24 08/08/24 08/08/24 17:55 18:00 23:36 WBC RBC Hgb Hct MCV MCH MCHC RDW Plt Count MPV % Immature Plt Fraction Puncture Site ABG pH ABG pCO2 ABG pO2 ABG PO2/FiO2 Ratio ABG HCO3 ABG O2 Saturation ABG O2 Content ABG Base Excess A-a Gradient Oxyhemoglobin Total Hemoglobin O2 Delivery Device O2 Liters/Min FiO2 Sodium Potassium Chloride Carbon Dioxide Anion Gap BUN Creatinine Estim Creat Clear Calc Estimated GFR Glucose POC Capillary Glucose Lactic Acid 2.2 H 1.5 Calcium Magnesium Total Bilirubin AST ALT Alkaline Phosphatase NT-Pro-B Natriuret Pep Total Protein Albumin Procalcitonin Urine Color Dark yellow Urine Appearance Cloudy H Urine pH 5.5 Ur Specific [place] 1.028 Urine Protein 2+ H Urine Glucose (UA) Trace H Urine Ketones 1+ H Ur Blood (Man) 1+ H Urine Nitrate Negative Urine Bilirubin Negative Urine Urobilinogen 1.0 Leukocyte Esterase Rfl Negative Urine RBC 0-2 Urine WBC 0-5 Ur Squamous Epith Cells Many H Urine Bacteria None seen Urine Casts >20 Hyaline Casts Present 08/09/24 08/09/24 04:40 05:23 WBC 10.9 H RBC 2.61 L Hgb 8.7 L D Hct 26.1 L MCV 100.0 MCH 33.3 MCHC 33.3 RDW 14.2 Plt Count 59 L MPV 10.5 H % Immature Plt Fraction 3.3 Puncture Site Left radial ABG pH 7.465 H ABG pCO2 31.0 L ABG pO2 59.4 L ABG PO2/FiO2 Ratio 2.83 ABG HCO3 21.8 L ABG O2 Saturation 92.5 L ABG O2 Content 12.6 L ABG Base Excess -1.4 A-a Gradient 53.2 Oxyhemoglobin 91.4 Total Hemoglobin 9.8 L O2 Delivery Device Room air O2 Liters/Min Not Reportable FiO2 21 Sodium 140 Potassium 3.7 Chloride 109 H Carbon Dioxide 22 Anion Gap 9 BUN 15 Creatinine 0.64 L Estim Creat Clear Calc Not Reportable Estimated GFR > 60 Glucose 250 H POC Capillary Glucose Lactic Acid Calcium 7.6 L Magnesium 1.8 Total Bilirubin 0.6 AST 55 H ALT 45 H Alkaline Phosphatase 52 NT-Pro-B Natriuret Pep Total Protein 5.0 L Albumin 2.7 L Procalcitonin Urine Color Urine Appearance Urine pH Ur Specific [place] Urine Protein Urine Glucose (UA) Urine Ketones Ur Blood (Man) Urine Nitrate Urine Bilirubin Urine Urobilinogen Leukocyte Esterase Rfl Urine RBC Urine WBC Ur Squamous Epith Cells Urine Bacteria Urine Casts Hyaline Casts Quality VTE Prophylaxis VTE prophylaxis: mechanical ordered
--- NOTE | 2024-08-09 09:21 | WPDANESPN ---
Anes - Prog Note Post-Op Date/Time: 08/09/24 09:21 Cardiovascular status: normal Respiratory status: normal Airway patency: baseline Mental status: baseline Vital Signs: Last Vital Signs Temp 36.7 C 08/09/24 08:00 Pulse 80 08/09/24 08:00 Resp 24 H 08/09/24 08:00 BP 112/51 L 08/09/24 08:00 Pulse Ox 92 08/09/24 08:00 O2 Del Method Room Air 08/09/24 04:00 O2 Flow Rate 2 08/08/24 04:15 FiO2 21 08/08/24 08:22 Pain Score (VAS): 3 I/O: Intake & Output 08/08/24 08/09/24 08/09/24 23:59 07:59 15:59 Intake Total 1025.2 489.3 1063.3 Output Total 590 1050 Balance 435.2 -560.7 1063.3 Laboratory Tests 08/09/24 04:40 08/09/24 04:40 08/08/24 08/08/24 08/08/24 05:45 09:18 11:39 WBC 12.5 H RBC 3.72 L Hgb 12.1 Hct 37.4 MCV 100.5 H MCH 32.5 MCHC 32.4 RDW 14.1 Plt Count 108 L MPV 9.9 % Immature Plt Fraction 2.6 Puncture Site ABG pH ABG pCO2 ABG pO2 ABG PO2/FiO2 Ratio ABG HCO3 ABG O2 Saturation ABG O2 Content ABG Base Excess A-a Gradient Oxyhemoglobin Total Hemoglobin O2 Delivery Device O2 Liters/Min FiO2 Sodium Potassium Chloride Carbon Dioxide Anion Gap BUN Creatinine Estim Creat Clear Calc Estimated GFR Glucose POC Capillary Glucose 101 Lactic Acid 3.3 H Calcium Magnesium Total Bilirubin AST ALT Alkaline Phosphatase NT-Pro-B Natriuret Pep 3400 H Total Protein Albumin Procalcitonin 4.7 Urine Color Urine Appearance Urine pH Ur Specific [place] Urine Protein Urine Glucose (UA) Urine Ketones Ur Blood (Man) Urine Nitrate Urine Bilirubin Urine Urobilinogen Leukocyte Esterase Rfl Urine RBC Urine WBC Ur Squamous Epith Cells Urine Bacteria Urine Casts Hyaline Casts 08/08/24 08/08/24 08/08/24 17:55 18:00 23:36 WBC RBC Hgb Hct MCV MCH MCHC RDW Plt Count MPV % Immature Plt Fraction Puncture Site ABG pH ABG pCO2 ABG pO2 ABG PO2/FiO2 Ratio ABG HCO3 ABG O2 Saturation ABG O2 Content ABG Base Excess A-a Gradient Oxyhemoglobin Total Hemoglobin O2 Delivery Device O2 Liters/Min FiO2 Sodium Potassium Chloride Carbon Dioxide Anion Gap BUN Creatinine Estim Creat Clear Calc Estimated GFR Glucose POC Capillary Glucose Lactic Acid 2.2 H 1.5 Calcium Magnesium Total Bilirubin AST ALT Alkaline Phosphatase NT-Pro-B Natriuret Pep Total Protein Albumin Procalcitonin Urine Color Dark yellow Urine Appearance Cloudy H Urine pH 5.5 Ur Specific [place] 1.028 Urine Protein 2+ H Urine Glucose (UA) Trace H Urine Ketones 1+ H Ur Blood (Man) 1+ H Urine Nitrate Negative Urine Bilirubin Negative Urine Urobilinogen 1.0 Leukocyte Esterase Rfl Negative Urine RBC 0-2 Urine WBC 0-5 Ur Squamous Epith Cells Many H Urine Bacteria None seen Urine Casts >20 Hyaline Casts Present 08/09/24 08/09/24 04:40 05:23 WBC 10.9 H RBC 2.61 L Hgb 8.7 L D Hct 26.1 L MCV 100.0 MCH 33.3 MCHC 33.3 RDW 14.2 Plt Count 59 L MPV 10.5 H % Immature Plt Fraction 3.3 Puncture Site Left radial ABG pH 7.465 H ABG pCO2 31.0 L ABG pO2 59.4 L ABG PO2/FiO2 Ratio 2.83 ABG HCO3 21.8 L ABG O2 Saturation 92.5 L ABG O2 Content 12.6 L ABG Base Excess -1.4 A-a Gradient 53.2 Oxyhemoglobin 91.4 Total Hemoglobin 9.8 L O2 Delivery Device Room air O2 Liters/Min Not Reportable FiO2 21 Sodium 140 Potassium 3.7 Chloride 109 H Carbon Dioxide 22 Anion Gap 9 BUN 15 Creatinine 0.64 L Estim Creat Clear Calc Not Reportable Estimated GFR > 60 Glucose 250 H POC Capillary Glucose Lactic Acid Calcium 7.6 L Magnesium 1.8 Total Bilirubin 0.6 AST 55 H ALT 45 H Alkaline Phosphatase 52 NT-Pro-B Natriuret Pep Total Protein 5.0 L Albumin 2.7 L Procalcitonin Urine Color Urine Appearance Urine pH Ur Specific [place] Urine Protein Urine Glucose (UA) Urine Ketones Ur Blood (Man) Urine Nitrate Urine Bilirubin Urine Urobilinogen Leukocyte Esterase Rfl Urine RBC Urine WBC Ur Squamous Epith Cells Urine Bacteria Urine Casts Hyaline Casts Patient Feedback: Patient satisfied with anesthetic care.
--- NOTE | 2024-08-09 11:00 | PC.NURSE ---
Patient returned to bed from recliner after approximately an hour and a half of being up. Reinforced education on early ambulation and activity post operatively. Patient and daughter still insist on returning to bed at this time. Patient agreeable to ambulating with assistance in hallway later in the shift.
[2024-08-09 12:04] LABS: Glucose Point of Care 133 mg/dl (65-105)
--- NOTE | 2024-08-09 12:33 | P.PNGS_ITS ---
Progress Note: A&P Assessment and Plan (1) Gastric outlet obstruction: Code(s): K31.1 - Adult hypertrophic pyloric stenosis Status: Acute Assessment and Plan: * Unclear etiology. Her stomach was severely distended again after NG removal, which was present during admission as well. Continue NG tube decompression and bowel rest for now. * Will plan for Esophogram and UGI tomorrow. * Will start TPN today (2) Small bowel obstruction: Code(s): K56.609 - Unspecified intestinal obstruction, unspecified as to partial versus complete obstruction Status: Acute Assessment and Plan: * Initially presented with SBO felt secondary to the left inguinal hernia, which was repaired. This initially improved, but after trial of liquids and NG removal, she developed a severely distended stomach. She was taken back to surgery last night for concerns of bowel ischemia and was found to have suspected abdominal compartment syndrome and gastric outlet obstruction. * Continue NG tube decompression, bowel rest, see plan above (3) Sepsis: Code(s): A41.9 - Sepsis, unspecified organism Status: Acute Assessment and Plan: * Continue IV antibiotics, no bowel ischemia during surgery overnight, off vasopressors * OK to transfer out of ICU (4) Incarcerated left inguinal hernia: Code(s): K40.30 - Unilateral inguinal hernia, with obstruction, without gangrene, not specified as recurrent Status: Acute Assessment and Plan: * Postop day 5 following open left inguinal hernia repair. Repair intact, incision healing well. Subjective Subjective Date/Time Seen: 08/09/24 12:33 Interval history: Patient having somewhat labored breathing but has a good cough and deep breathing. Abd pain controlled. No fevers. Up to chair already today. Exam GI: Inspection: non-distended and incision (dressing dry) GI Palp: Yes Soft to palpation and Yes Tenderness to palpation present (GI) (minimal incisional) Auscultation: Hypoactive bowel sounds present Objective Data Vital Signs Vital Signs: Vital Signs - 24 hr 08/08/24 13:44 08/08/24 14:00 08/08/24 14:00 Temperature Pulse Rate 83 76 87 Respiratory Rate Blood Pressure 119/65 Pulse Oximetry Oxygen Delivery 08/08/24 14:00 08/08/24 14:13 08/08/24 15:09 Temperature 98.0 F Pulse Rate 87 86 76 Respiratory Rate 22 H Blood Pressure 113/64 122/65 Pulse Oximetry 97 Oxygen Delivery 08/08/24 15:09 08/08/24 15:13 08/08/24 15:28 Temperature Pulse Rate 76 78 75 Respiratory Rate Blood Pressure 122/65 125/75 130/78 Pulse Oximetry Oxygen Delivery 08/08/24 16:00 08/08/24 16:00 08/08/24 16:00 Temperature 96.6 F L Pulse Rate 77 79 82 Respiratory Rate 23 H 18 Blood Pressure 111/76 Pulse Oximetry 97 95 Oxygen Delivery Room Air 08/08/24 16:00 08/08/24 16:00 08/08/24 16:45 Temperature Pulse Rate 85 79 85 Respiratory Rate Blood Pressure 126/78 Pulse Oximetry Oxygen Delivery 08/08/24 16:50 08/08/24 17:22 08/08/24 18:00 Temperature Pulse Rate 80 74 70 Respiratory Rate Blood Pressure 132/65 128/73 Pulse Oximetry Oxygen Delivery 08/08/24 18:00 08/08/24 18:00 08/08/24 20:00 Temperature Pulse Rate 87 76 73 Respiratory Rate Blood Pressure 96/81 L Pulse Oximetry Oxygen Delivery 08/08/24 20:00 08/08/24 20:00 08/08/24 20:00 Temperature Pulse Rate 78 78 Respiratory Rate Blood Pressure 96/81 L Pulse Oximetry 95 Oxygen Delivery Room Air 08/08/24 20:11 08/08/24 21:12 08/08/24 21:17 Temperature 99.6 F Pulse Rate 74 79 74 Respiratory Rate 24 H Blood Pressure 96/81 L 128/65 135/66 Pulse Oximetry 96 Oxygen Delivery 08/08/24 21:39 08/08/24 22:00 08/08/24 22:00 Temperature Pulse Rate 75 72 76 Respiratory Rate Blood Pressure 115/67 121/66 Pulse Oximetry Oxygen Delivery 08/08/24 22:00 08/08/24 22:41 08/08/24 22:41 Temperature Pulse Rate 76 77 77 Respiratory Rate Blood Pressure 121/66 131/66 131/66 Pulse Oximetry Oxygen Delivery 08/08/24 23:15 08/08/24 23:53 08/09/24 00:00 Temperature Pulse Rate 70 70 67 Respiratory Rate Blood Pressure 131/61 125/70 132/59 L Pulse Oximetry Oxygen Delivery 08/09/24 00:00 08/09/24 00:00 08/09/24 00:00 Temperature Pulse Rate 67 68 Respiratory Rate Blood Pressure 132/59 L Pulse Oximetry 97 Oxygen Delivery Room Air 08/09/24 00:14 08/09/24 00:21 08/09/24 00:43 Temperature 98.6 F Pulse Rate 68 71 69 Respiratory Rate 27 H Blood Pressure 132/59 L 127/57 L 134/64 Pulse Oximetry 95 Oxygen Delivery 08/09/24 00:48 08/09/24 01:04 08/09/24 01:16 Temperature Pulse Rate 68 68 75 Respiratory Rate Blood Pressure 121/62 114/60 119/68 Pulse Oximetry Oxygen Delivery 08/09/24 01:34 08/09/24 02:00 08/09/24 02:00 Temperature Pulse Rate 71 76 76 Respiratory Rate Blood Pressure 116/56 L 115/54 L 115/54 L Pulse Oximetry Oxygen Delivery 08/09/24 02:00 08/09/24 02:00 08/09/24 02:18 Temperature Pulse Rate 75 76 78 Respiratory Rate 26 H Blood Pressure 115/54 L 105/58 L Pulse Oximetry 93 Oxygen Delivery 08/09/24 02:43 08/09/24 03:01 08/09/24 03:17 Temperature Pulse Rate 77 77 98 Respiratory Rate Blood Pressure 108/50 L 108/48 L 112/63 Pulse Oximetry Oxygen Delivery 08/09/24 03:31 08/09/24 03:56 08/09/24 03:57 Temperature Pulse Rate 86 77 86 Respiratory Rate Blood Pressure 105/53 L 107/49 L 107/49 L Pulse Oximetry Oxygen Delivery 08/09/24 04:00 08/09/24 04:00 08/09/24 04:00 Temperature Pulse Rate 86 88 Respiratory Rate 24 H Blood Pressure 106/47 L Pulse Oximetry 93 89 L Oxygen Delivery Room Air 08/09/24 05:15 08/09/24 06:00 08/09/24 06:00 Temperature Pulse Rate 90 90 88 Respiratory Rate 25 H Blood Pressure 98/76 L 107/54 L Pulse Oximetry 94 Oxygen Delivery 08/09/24 06:00 08/09/24 08:00 08/09/24 08:00 Temperature 98.0 F Pulse Rate 93 80 90 Respiratory Rate 22 H 24 H 22 H Blood Pressure 107/54 L 112/51 L Pulse Oximetry 92 92 92 Oxygen Delivery Room Air 08/09/24 08:00 08/09/24 10:00 08/09/24 10:00 Temperature 97.9 F Pulse Rate 90 83 83 Respiratory Rate 20 Blood Pressure 119/52 L Pulse Oximetry 91 Oxygen Delivery 08/09/24 12:00 Temperature 97.1 F L Pulse Rate 77 Respiratory Rate 23 H Blood Pressure 114/57 L Pulse Oximetry 95 Oxygen Delivery Intake/Output Intake/Output: Intake & Output 08/06/24 08/08/24 08/08/24 08/09/24 23:59 00:59 23:59 23:59 Intake Total 2100 2950 4088.7 1552.6 Output Total 2825 236 1535 1050 Balance -725 2714 2553.7 502.6 Meds/Results Medications: Active Medications Generic Name Dose Route Start Last Admin Trade Name Freq PRN Reason Stop Dose Admin Dextrose 12.5 gm 08/09/24 07:57 Dextrose 50% 25 Gm/50 Ml Syringe IV PUSH PRN PRN Hypoglycemia Protocol Enoxaparin Sodium 40 mg 08/05/24 09:00 08/08/24 09:34 Enoxaparin 40 Mg/0.4 Ml Syringe SUB-Q 40 mg DAILY [facility]GAN Administration Glucagon 1 mg 08/09/24 07:57 Glucagon For Inj 1 Mg Vial IM PRN PRN Hypoglycemia Protocol Glucose 15 gm 08/09/24 07:57 Glucose Oral Gel 15 Gm Of Glucse In 37.5 Gm Tube PO PRN PRN Hypoglycemia Protocol Hydrocortisone Sodium Succinate 100 mg 08/08/24 14:00 08/09/24 05:19 Hydrocortisone Sodium Succinate 100 Mg/2 Ml Vial IV PUSH 100 mg Q8HR [facility] Administration Hydromorphone HCl 0.5 mg 08/09/24 11:55 Hydromorphone Hcl Inj (*Crx) 1 Mg/Ml Syr IV PUSH Q2H PRN Pain Rated 7-10 Ibuprofen 800 mg in 200 mls @ 400 mls/hr 08/08/24 05:45 08/09/24 09:06 Caldolor 800 Mg/200 Ml IVPB Infused Q6H PRN Infusion Breakthrough Pain Rated 1-3 or NPO Norepinephrine Bitartrate 8 mg in 250 mls @ 0 mls/hr 08/08/24 06:30 08/09/24 03:57 Levophed 8 Mg/D5w 250 Ml IV CONT Not Given .Q0M [facility] Protocol 0 MCG/MIN Piperacillin/Tazobactam/Dextrose 3.375 gm in 50 mls @ 100 mls/hr 08/08/24 10:05 08/09/24 06:07 Zosyn 3.375 Gm/Ns 50 Ml IVPB Infused Q6HR [facility] Infusion Dextrose 1,000 mls @ 100 mls/hr 08/09/24 07:57 Dextrose 5% 1,000 Ml IVPB PRN PRN Hypoglycemia Protocol Dextrose 1,000 mls @ 50 mls/hr 08/09/24 12:28 Dextrose 10% IV CONT .Q20H PRN if PN is interrupted Multivitamins 1.25 ml/ 1,002.5 mls @ 20 mls/hr 08/09/24 12:30 Multivitamins 1.25 ml/ Amino IV CONT Acids/Electrolytes/Dextrose .Q24H [facility] Protocol Fat Emulsion Intravenous 250 mls @ 20.833 mls/hr 08/09/24 12:30 Lipids 20% IVPB Q24H [facility] Insulin Aspart 2 - 5 units 08/09/24 12:00 08/09/24 12:06 Insulin Aspart (*Bkc) 100 Units/Ml SUB-Q Not Given Q6HR [facility] Protocol Lidocaine 1 patch 08/04/24 10:25 08/09/24 08:35 Lidocaine 5% Patch TRANSDERM Not Given DAILY [facility] Naloxone HCl 0.1 mg 08/08/24 05:45 Naloxone Hcl 0.4 Mg/Ml Vial IV PUSH Q2M PRN Opiate Reversal Ondansetron HCl 4 mg 08/03/24 15:38 08/07/24 20:18 Ondansetron Inj 4 Mg/2 Ml Vial IV PUSH 4 mg Q4H PRN Administration Nausea Pantoprazole Sodium 40 mg 08/04/24 09:00 08/09/24 08:34 Pantoprazole Sodium Iv 40 Mg Vial IV PUSH 40 mg QAM [facility] Administration Perflutren Lipid Microsphere 0 ml 08/08/24 08:45 Perflutren Lipid Microspheres 1.5 Ml Vial Diluted To 10 Ml Total Volume IV PUSH 08/11/24 08:46 ONCE PRN adequate visualization Protocol Phenytoin Sodium 225 mg 08/07/24 21:15 08/09/24 08:35 Phenytoin Sod 250 Mg/5 Ml Vial (*Bkc) IV PUSH 225 mg Q12HR [facility] Administration Sodium Chloride 20 ml 08/06/24 23:57 08/07/24 06:05 Central Line Flush IV PUSH 20 ml PRN PRN Administration after blood draws Sodium Chloride 10 ml 08/06/24 23:57 Central Line Flush IV PUSH PRN PRN with TPN bag changes Sodium Chloride 10 ml 08/07/24 06:00 08/09/24 05:20 Central Line Flush IV PUSH 10 ml Q8HR [facility] Administration Radiology Results: ITS Impressions Abdomen X-Ray 08/08/24 05:43 Impression: NG tube in place, as above. Marked gaseous distention of several probable dilated small bowel loops. Correlate for small bowel obstruction versus ileus. Abdomen/Pelvis CT 08/08/24 06:07 Impression: Findings highly suspicious for extensive bowel ischemia, extensive small bowel and gastric pneumatosis and extensive portal venous gas. Extensive dilatation of small bowel loops and stomach with decompression of large bowel. Transition point not well delineated, but findings are highly suspicious for distal small bowel obstruction. NG tube tip at the GE junction. Further advancement of NG tube into the stomach is required for adequate placement. Small bilateral pleural effusions. Chest X-Ray 08/09/24 06:33 Impression: Central congestive change and possible minimal bibasilar pulmonary edema. Correlate for pulmonary artery hypertension. Support tubes, as above. Labs Labs: Laboratory Results - last 24 hr 08/08/24 08/08/24 08/08/24 17:55 18:00 23:36 WBC RBC Hgb Hct MCV MCH MCHC RDW Plt Count MPV % Immature Plt Fraction Puncture Site ABG pH ABG pCO2 ABG pO2 ABG PO2/FiO2 Ratio ABG HCO3 ABG O2 Saturation ABG O2 Content ABG Base Excess A-a Gradient Oxyhemoglobin Total Hemoglobin O2 Delivery Device O2 Liters/Min FiO2 Sodium Potassium Chloride Carbon Dioxide Anion Gap BUN Creatinine Estim Creat Clear Calc Estimated GFR Glucose POC Capillary Glucose Lactic Acid 2.2 H 1.5 Calcium Magnesium Total Bilirubin AST ALT Alkaline Phosphatase Total Protein Albumin Urine Color Dark yellow Urine Appearance Cloudy H Urine pH 5.5 Ur Specific [place] 1.028 Urine Protein 2+ H Urine Glucose (UA) Trace H Urine Ketones 1+ H Ur Blood (Man) 1+ H Urine Nitrate Negative Urine Bilirubin Negative Urine Urobilinogen 1.0 Leukocyte Esterase Rfl Negative Urine RBC 0-2 Urine WBC 0-5 Ur Squamous Epith Cells Many H Urine Bacteria None seen Urine Casts >20 Hyaline Casts Present 08/09/24 08/09/24 08/09/24 04:40 05:23 11:56 WBC 10.9 H RBC 2.61 L Hgb 8.7 L D Hct 26.1 L MCV 100.0 MCH 33.3 MCHC 33.3 RDW 14.2 Plt Count 59 L MPV 10.5 H % Immature Plt Fraction 3.3 Puncture Site Left radial ABG pH 7.465 H ABG pCO2 31.0 L ABG pO2 59.4 L ABG PO2/FiO2 Ratio 2.83 ABG HCO3 21.8 L ABG O2 Saturation 92.5 L ABG O2 Content 12.6 L ABG Base Excess -1.4 A-a Gradient 53.2 Oxyhemoglobin 91.4 Total Hemoglobin 9.8 L O2 Delivery Device Room air O2 Liters/Min Not Reportable FiO2 21 Sodium 140 Potassium 3.7 Chloride 109 H Carbon Dioxide 22 Anion Gap 9 BUN 15 Creatinine 0.64 L Estim Creat Clear Calc Not Reportable Estimated GFR > 60 Glucose 250 H POC Capillary Glucose 133 H Lactic Acid Calcium 7.6 L Magnesium 1.8 Total Bilirubin 0.6 AST 55 H ALT 45 H Alkaline Phosphatase 52 Total Protein 5.0 L Albumin 2.7 L Urine Color Urine Appearance Urine pH Ur Specific [place] Urine Protein Urine Glucose (UA) Urine Ketones Ur Blood (Man) Urine Nitrate Urine Bilirubin Urine Urobilinogen Leukocyte Esterase Rfl Urine RBC Urine WBC Ur Squamous Epith Cells Urine Bacteria Urine Casts Hyaline Casts
[2024-08-09] MEDS: AMINO ACIDS 5%/D15W/E-LYTES/CA 1,000 ML with MULTIVITAMINS-12 INJ VIAL 1 1.25 ML, MULTI... 20 ML IV CONT (13:13)
[2024-08-09] MEDS: FAT EMULSIONS IV 20% 250 ML 20.83 ML IVPB (13:14)
[2024-08-09 13:31] LABS: Partial Thromboplastin Time 33.1 Seconds (22.3-36.8)
[2024-08-09 13:41] LABS: Alanine Aminotransferase 50 U/L (6-35); Alkaline Phosphatase 55 U/L (38-126); Anion Gap 9 mmol/L (4-12); Aspartate Amino Transferase 55 U/L (14-36); Bilirubin,Total 0.8 mg/dL (0.2-1.3); Blood Urea Nitrogen 15 mg/dL (7-17); Calcium 8.1 mg/dL (8.4-10.2); Carbon Dioxide 26 mmol/L (22-30); Chloride 109 mmol/L (98-107); Estimated Glomerular Filt Rate > 60; Glucose 127 mg/dL (65-110); Magnesium 1.8 mg/dL (1.6-2.3); Potassium 2.8 mmol/L (3.4-5.0); Sodium 144 mmol/L (137-145)
[2024-08-09 13:54] LABS: Transferrin < 80 mg/dL (206-381)
--- NOTE | 2024-08-09 14:00 | PC.NURSE ---
Gastrostomy tube draining to collection bag via gravity. NG intermittent suction stopped per general surgery orders.
[2024-08-09 14:09] LABS: Hematocrit 26.6 % (37.0-47.0); Hemoglobin 8.9 g/dL (12.0-15.0); Immature Platelet Fraction Pct 3.7 % (0.9-11.2); Mean Corpuscular HGB Conc 33.5 g/dl (32-36); Mean Corpuscular Volume 98.5 fl (80-100); Mean Platelet Volume 10.9 fl (7.4-10.4); Platelet Count Result 58 k/mm3 (150-375); Red Cell Distribution Width 14.2 % (11.5-14.5); White Blood Count 13.3 K/mm3 (4.5-10.0)
[2024-08-09] MEDS: KCL 40 MEQ/WATER 100 ML 100 ML 25 ML IVPB (14:13)
[2024-08-09 14:36] LABS: Phosphorus 2.3 mg/dL (2.5-4.5)
[2024-08-09 14:49] LABS: Band Neutrophils Percent 10 % (0-6); Lymphocytes Absolute Manual 0.79 K/mm3 (1.1-4.5); Lymphocytes Percent Manual 6 % (18-44); Metamyelocytes Percent 1 %; Monocytes Absolute Manual 0.39 K/mm3 (0.1-0.90); Monocytes Percent Manual 3 % (3-9); Neutrophils Absolute Manual 11.97 K/mm3 (1.7-7.2); Neutrophils Percent Manual 80 % (46-73); Platelet Estimate Decreased (Adequate); Schistocytes None Seen; Total Cells Counted 100
[2024-08-09 18:01] LABS: Glucose Point of Care 161 mg/dl (65-105)
[2024-08-09] MEDS: HYDROmorphone HCL INJ (*CRX) 1 MG/ML SYR 0.5 MG IV PUSH (20:16)
[2024-08-09] MEDS: POTASSIUM PHOS,M-BASIC-D-BASIC 15 MMOL in SODIUM CHLORIDE 0.9% IV 250 ML 85 MMOL IVPB (20:27)
[2024-08-09] MEDS: KCL 20 MEQ/SW 100 ML 100 ML 50 MEQ IVPB (23:28)
[2024-08-10] VITALS (16 sets, daily range): BP systolic 119–139; BP diastolic 61–89; PULSE 64–80; RESP 13–23; TEMP 36.5–37.3; O2SAT 94–98
[2024-08-10 00:10] LABS: Glucose Point of Care 135 mg/dl (65-105)
[2024-08-10] MEDS: PIPERACILLN/TAZ 3.375GM/NS50ML 3.375 GM/50 ML BAG IVPB ×4 (01:26→17:32)
[2024-08-10 05:04] LABS: Hematocrit 28.1 % (37.0-47.0); Hemoglobin 9.5 g/dL (12.0-15.0); Immature Platelet Fraction Pct 4.2 % (0.9-11.2); Mean Corpuscular HGB Conc 33.8 g/dl (32-36); Mean Corpuscular Hemoglobin 33.3 pg (26-34); Mean Corpuscular Volume 98.6 fl (80-100); Mean Platelet Volume 10.5 fl (7.4-10.4); Platelet Count Result 60 k/mm3 (150-375); Red Blood Count 2.85 M/mm3 (4.2-5.4); Red Cell Distribution Width 14.1 % (11.5-14.5); White Blood Count 12.9 K/mm3 (4.5-10.0)
[2024-08-10 05:12] LABS: Alanine Aminotransferase 53 U/L (6-35); Alkaline Phosphatase 62 U/L (38-126); Anion Gap 7 mmol/L (4-12); Aspartate Amino Transferase 41 U/L (14-36); Bilirubin,Total 0.7 mg/dL (0.2-1.3); Blood Urea Nitrogen 16 mg/dL (7-17); Calcium 8.1 mg/dL (8.4-10.2); Carbon Dioxide 29 mmol/L (22-30); Chloride 108 mmol/L (98-107); Estimated Glomerular Filt Rate > 60; Glucose 150 mg/dL (65-110); Magnesium 1.9 mg/dL (1.6-2.3); Phosphorus 2.6 mg/dL (2.5-4.5); Potassium 2.9 mmol/L (3.4-5.0); Sodium 144 mmol/L (137-145)
[2024-08-10] MEDS: HYDROCORTISONE SODIUM SUCCINATE 100 MG/2 ML VIAL IV PUSH (05:59)
[2024-08-10] MEDS: CENTRAL LINE FLUSH 10 ML IV PUSH ×3 (06:19→22:37)
--- NOTE | 2024-08-10 08:10 | PM.IMPN ---
Progress Note: A&P Assessment and Plan (1) Small bowel obstruction: Code(s): K56.609 - Unspecified intestinal obstruction, unspecified as to partial versus complete obstruction Status: Acute Assessment and Plan: Initially presented with SBO felt secondary to the left inguinal hernia, which was repaired on 08/03. This initially improved, but after trial of liquids and NG removal, she developed a severely distended stomach. She was taken back to surgery on 08/08 for concerns of bowel ischemia and was found to have suspected abdominal compartment syndrome and gastric outlet obstruction. Status post 08/03 Open incarcerated left femoral hernia repair without mesh 08/08 Exploratory laparotomy, gastrostomy tube placement Management per General surgery NG tube in place to suction Bowel rest Antibiotics as below General surgery eventually plans to obtain either a contrast study or EGD to evaluate for obstruction (2) Ileus, postoperative: Code(s): K91.89 - Other postprocedural complications and disorders of digestive system; K56.7 - Ileus, unspecified Status: Acute Assessment and Plan: See above (3) Incarcerated left inguinal hernia: Code(s): K40.30 - Unilateral inguinal hernia, with obstruction, without gangrene, not specified as recurrent Status: Acute Assessment and Plan: See above (4) EULALIO (acute kidney injury): Code(s): N17.9 - Acute kidney failure, unspecified Status: Acute Assessment and Plan: Creatinine improved with IV fluids. Hold further IV fluids to volume overload. Will give Lasix Monitor urine output electrolytes and creatinine (5) Sepsis: Code(s): A41.9 - Sepsis, unspecified organism Status: Acute Assessment and Plan: Continue Zosyn Un remark UA blood cultures pending Check procalcitonin 4.7 (6) Shock: Code(s): R57.9 - Shock, unspecified Status: Acute Assessment and Plan: Secondary to sepsis versus intravascular volume depletion. Improved and patient is now off of vasopressors Will hold further IV fluids (7) Seizures: Code(s): R56.9 - Unspecified convulsions Status: Chronic Assessment and Plan: Continue IV phenytoin (8) Electrolyte abnormality: Code(s): E87.8 - Other disorders of electrolyte and fluid balance, not elsewhere classified Status: Acute Assessment and Plan: Change fluids to half-normal saline Replace potassium magnesium and calcium (9) Pulmonary edema: Code(s): J81.1 - Chronic pulmonary edema Status: Acute Assessment and Plan: Chest x-ray shows pulmonary edema. Elevated BNP Echo reviewed Hold further fluids Will give Lasix IV Subjective Date/time seen: 08/10/24 08:10 Interval history: Evaluated the patient at the bedside along with her daughter. 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 Patient has a past medical history of seizures and other than that no significant medical history. As per daughter lately she was not feeling well and visited ED.Patient had 3/5 Open incarcerated left femoral hernia repair without mesh and 3/10 Exploratory laparotomy, gastrostomy tube placement. Review of Systems Review of Systems: All systems reviewed & are unremarkable except as noted in HPI and below (HPI) Exam Narrative: General: Frail old female who looks older than her age. She is awake and no significant distress Lungs/Chest: Trachea central Clear BS B/L, No crackles or wheezing. Mild tachypnea Cardiac: RRR. Normal S1 S2. No murmurs Circulation: The feet are warm Abdomen: Absent bowel sounds.. Mild tenderness to palpation, gastrostomy tube in place, incision under dressing Extremities: No clubbing or cyanosis, bilateral edema present : Khanna in place Neurologic: Follows commands. Moves all 4 extremities PERRL AO x3 Skin: No Rash Const: General: comfortable and no acute distress Other: The patient is recumbent in a stretcher in the PACU. , female, elderly, modestly ill-appearing. +fatigue. HENMT: Face/Nose/Sinus: Normal nares present Mouth: Yes dry mucous membranes Other: NG in place. Eyes: General: appearance normal, both eyes and all related structures Sclera: sclerae normal Pupils: Equal, round and reactive pupils present EOM: EOMs intact bilaterally Resp: Effort & Inspection: normal respiratory effort Auscultation: clear to auscultation bilaterally Cardio: Rate: regular rate Rhythm: regular rhythm Other: S1-S2 present without murmur, rub, ectopy GI: Other: Abdomen firm, distended. bowel sounds present, Drain in place, serosanguineous output. Skin: General skin exam: normal color and no rashes or lesions noted Wounds: no wounds Neuro: Cranial nerves: Yes Equal, round and reactive pupils present Speech: normal speech Motor exam (neuro): 5/5 motor strength present throughout Sensory Exam: normal sensation Other: A&O x4, mildly somnolent. Extrem: General: normal to inspection Psych: Mental Status: mental status grossly normal Affect: normal affect Other: Good insight and judgment, pleasant Objective Data Vital Signs Vital Signs: Vital Signs - 24 hr 08/09/24 10:00 08/09/24 10:00 08/09/24 12:00 Temperature 97.9 F 97.1 F L Pulse Rate 83 83 77 Respiratory Rate 20 23 H Blood Pressure 119/52 L 114/57 L Pulse Oximetry 91 95 Oxygen Delivery Oxygen Flow Rate 08/09/24 12:00 08/09/24 12:00 08/09/24 14:00 Temperature 98.4 F Pulse Rate 82 79 88 Respiratory Rate 22 H 20 Blood Pressure 121/54 L Pulse Oximetry 95 94 Oxygen Delivery Room Air Oxygen Flow Rate 08/09/24 14:00 08/09/24 16:00 08/09/24 16:00 Temperature 98.3 F Pulse Rate 79 80 87 Respiratory Rate 21 H 20 Blood Pressure 118/57 L Pulse Oximetry 94 96 Oxygen Delivery Room Air Oxygen Flow Rate 08/09/24 16:00 08/09/24 18:00 08/09/24 20:00 Temperature Pulse Rate 92 75 Respiratory Rate Blood Pressure Pulse Oximetry 93 Oxygen Delivery Nasal Cannula Oxygen Flow Rate 2 08/09/24 20:00 08/09/24 20:10 08/09/24 22:00 Temperature 98.6 F Pulse Rate 76 76 78 Respiratory Rate 24 H Blood Pressure 125/61 Pulse Oximetry 93 Oxygen Delivery Oxygen Flow Rate 08/10/24 00:00 08/10/24 00:00 08/10/24 00:00 Temperature 99.2 F Pulse Rate 64 70 Respiratory Rate 13 Blood Pressure 119/63 Pulse Oximetry 98 98 Oxygen Delivery Nasal Cannula Oxygen Flow Rate 2 08/10/24 02:00 08/10/24 04:00 08/10/24 04:00 Temperature Pulse Rate 65 76 Respiratory Rate Blood Pressure Pulse Oximetry 98 Oxygen Delivery Nasal Cannula Oxygen Flow Rate 2 08/10/24 04:13 08/10/24 06:00 08/10/24 06:00 Temperature 99.1 F Pulse Rate 79 67 64 Respiratory Rate 20 19 Blood Pressure 139/70 139/63 Pulse Oximetry 98 97 Oxygen Delivery Oxygen Flow Rate Intake/Output Intake/Output: Intake & Output 08/08/24 08/08/24 08/09/24 08/10/24 00:59 23:59 23:59 23:59 Intake Total 2950 4088.7 1907.6 500 Output Total 236 1535 4100 1025 Balance 2714 2553.7 -2192.4 -525 Meds/Results Medications: Active Medications Generic Name Dose Route Start Last Admin Trade Name Freq PRN Reason Stop Dose Admin Dextrose 12.5 gm 08/09/24 07:57 Dextrose 50% 25 Gm/50 Ml Syringe IV PUSH PRN PRN Hypoglycemia Protocol Enoxaparin Sodium 40 mg 08/05/24 09:00 08/08/24 09:34 Enoxaparin 40 Mg/0.4 Ml Syringe SUB-Q 40 mg DAILY MORGAN Administration Glucagon 1 mg 08/09/24 07:57 Glucagon For Inj 1 Mg Vial IM PRN PRN Hypoglycemia Protocol Glucose 15 gm 08/09/24 07:57 Glucose Oral Gel 15 Gm Of Glucse In 37.5 Gm Tube PO PRN PRN Hypoglycemia Protocol Hydrocortisone Sodium Succinate 100 mg 08/08/24 14:00 08/10/24 05:59 Hydrocortisone Sodium Succinate 100 Mg/2 Ml Vial IV PUSH 100 mg Q8HR MORGAN Administration Hydromorphone HCl 0.5 mg 08/09/24 11:55 08/09/24 20:16 Hydromorphone Hcl Inj (*Crx) 1 Mg/Ml Syr IV PUSH 0.5 mg Q2H PRN Administration Pain Rated 7-10 Ibuprofen 800 mg in 200 mls @ 400 mls/hr 08/08/24 05:45 08/09/24 09:06 Caldolor 800 Mg/200 Ml IVPB Infused Q6H PRN Infusion Breakthrough Pain Rated 1-3 or NPO Piperacillin/Tazobactam/Dextrose 3.375 gm in 50 mls @ 100 mls/hr 08/08/24 10:05 08/10/24 06:29 Zosyn 3.375 Gm/Ns 50 Ml IVPB Infused Q6HR MORGAN Infusion Dextrose 1,000 mls @ 100 mls/hr 08/09/24 07:57 Dextrose 5% 1,000 Ml IVPB PRN PRN Hypoglycemia Protocol Dextrose 1,000 mls @ 50 mls/hr 08/09/24 12:28 Dextrose 10% IV CONT .Q20H PRN if PN is interrupted Multivitamins 1.25 ml/ 1,002.5 mls @ 20 mls/hr 08/09/24 13:30 08/09/24 13:13 Multivitamins 1.25 ml/ Amino IV CONT 20 mls/hr Acids/Electrolytes/Dextrose .Q24H MORGAN Administration Protocol Fat Emulsion Intravenous 250 mls @ 20.833 mls/hr 08/09/24 13:30 08/10/24 01:15 Lipids 20% IVPB Infused Q24H MORGAN Infusion Insulin Aspart 2 - 5 units 08/09/24 12:00 08/10/24 05:40 Insulin Aspart (*Bkc) 100 Units/Ml SUB-Q Not Given Q6HR MORGAN Protocol Lidocaine 1 patch 08/04/24 10:25 08/09/24 08:35 Lidocaine 5% Patch TRANSDERM Not Given DAILY MORGAN Naloxone HCl 0.1 mg 08/08/24 05:45 Naloxone Hcl 0.4 Mg/Ml Vial IV PUSH Q2M PRN Opiate Reversal Ondansetron HCl 4 mg 08/03/24 15:38 08/07/24 20:18 Ondansetron Inj 4 Mg/2 Ml Vial IV PUSH 4 mg Q4H PRN Administration Nausea Pantoprazole Sodium 40 mg 08/04/24 09:00 08/09/24 08:34 Pantoprazole Sodium Iv 40 Mg Vial IV PUSH 40 mg QAM MORGAN Administration Perflutren Lipid Microsphere 0 ml 08/08/24 08:45 Perflutren Lipid Microspheres 1.5 Ml Vial Diluted To 10 Ml Total Volume IV PUSH 08/11/24 08:46 ONCE PRN adequate visualization Protocol Phenytoin Sodium 225 mg 08/07/24 21:15 08/09/24 20:15 Phenytoin Sod 250 Mg/5 Ml Vial (*Bkc) IV PUSH 225 mg Q12HR MORGAN Administration Sodium Chloride 20 ml 08/06/24 23:57 08/07/24 06:05 Central Line Flush IV PUSH 20 ml PRN PRN Administration after blood draws Sodium Chloride 10 ml 08/06/24 23:57 Central Line Flush IV PUSH PRN PRN with TPN bag changes Sodium Chloride 10 ml 08/07/24 06:00 08/10/24 06:19 Central Line Flush IV PUSH 10 ml Q8HR MORGAN Administration Radiology Results: ITS Impressions Abdomen X-Ray 08/08/24 05:43 Impression: NG tube in place, as above. Marked gaseous distention of several probable dilated small bowel loops. Correlate for small bowel obstruction versus ileus. Abdomen/Pelvis CT 08/08/24 06:07 Impression: Findings highly suspicious for extensive bowel ischemia, extensive small bowel and gastric pneumatosis and extensive portal venous gas. Extensive dilatation of small bowel loops and stomach with decompression of large bowel. Transition point not well delineated, but findings are highly suspicious for distal small bowel obstruction. NG tube tip at the GE junction. Further advancement of NG tube into the stomach is required for adequate placement. Small bilateral pleural effusions. Chest X-Ray 08/10/24 06:32 Impression: Central congestive change and probable mild bibasilar pulmonary edema. Support tubes, as above. Labs Labs: Laboratory Results - last 24 hr 08/09/24 08/09/24 08/09/24 11:56 13:04 13:05 WBC 13.3 H RBC 2.70 L Hgb 8.9 L Hct 26.6 L MCV 98.5 MCH 33.0 MCHC 33.5 RDW 14.2 Plt Count 58 L MPV 10.9 H Immature Gran % (Auto) Not Reportable Neut % (Auto) Not Reportable Lymph % (Auto) Not Reportable Treasure % (Auto) Not Reportable Eos % (Auto) Not Reportable Baso % (Auto) Not Reportable Lymph # (Auto) Not Reportable Treasure # (Auto) Not Reportable Eos # (Auto) Not Reportable Baso # (Auto) Not Reportable Abs Immat Gran (auto) Not Reportable Absolute Neuts (auto) Not Reportable Absolute Nucleated RBC Not Reportable Total Counted 100 Neutrophils % (Manual) 80 H Band Neutrophils % 10 H Lymphocytes % (Manual) 6 L Monocytes % (Manual) 3 Metamyelocytes % 1 Nucleated RBC % Not Reportable Abs Neuts (Manual) 11.97 H Abs Lymphs (Manual) 0.79 L Abs Monocytes (Manual) 0.39 Platelet Estimate Decreased % Immature Plt Fraction 3.7 Schistocytes None seen APTT 33.1 Sodium 144 Potassium 2.8 L* Chloride 109 H Carbon Dioxide 26 Anion Gap 9 BUN 15 Creatinine 0.72 Estim Creat Clear Calc Not Reportable Estimated GFR > 60 Glucose 127 H POC Capillary Glucose 133 H Calcium 8.1 L Phosphorus Magnesium 1.8 Transferrin < 80 L Total Bilirubin 0.8 AST 55 H ALT 50 H Alkaline Phosphatase 55 Total Protein 5.0 L Albumin 3.0 L 08/09/24 08/09/24 08/10/24 14:07 17:59 00:04 WBC RBC Hgb Hct MCV MCH MCHC RDW Plt Count MPV Immature Gran % (Auto) Neut % (Auto) Lymph % (Auto) Treasure % (Auto) Eos % (Auto) Baso % (Auto) Lymph # (Auto) Treasure # (Auto) Eos # (Auto) Baso # (Auto) Abs Immat Gran (auto) Absolute Neuts (auto) Absolute Nucleated RBC Total Counted Neutrophils % (Manual) Band Neutrophils % Lymphocytes % (Manual) Monocytes % (Manual) Metamyelocytes % Nucleated RBC % Abs Neuts (Manual) Abs Lymphs (Manual) Abs Monocytes (Manual) Platelet Estimate % Immature Plt Fraction Schistocytes APTT Sodium Potassium Chloride Carbon Dioxide Anion Gap BUN Creatinine Estim Creat Clear Calc Estimated GFR Glucose POC Capillary Glucose 161 H 135 H Calcium Phosphorus 2.3 L Magnesium Transferrin Total Bilirubin AST ALT Alkaline Phosphatase Total Protein Albumin 08/10/24 04:40 WBC 12.9 H RBC 2.85 L Hgb 9.5 L Hct 28.1 L MCV 98.6 MCH 33.3 MCHC 33.8 RDW 14.1 Plt Count 60 L MPV 10.5 H Immature Gran % (Auto) Neut % (Auto) Lymph % (Auto) Treasure % (Auto) Eos % (Auto) Baso % (Auto) Lymph # (Auto) Treasure # (Auto) Eos # (Auto) Baso # (Auto) Abs Immat Gran (auto) Absolute Neuts (auto) Absolute Nucleated RBC Total Counted Neutrophils % (Manual) Band Neutrophils % Lymphocytes % (Manual) Monocytes % (Manual) Metamyelocytes % Nucleated RBC % Abs Neuts (Manual) Abs Lymphs (Manual) Abs Monocytes (Manual) Platelet Estimate % Immature Plt Fraction 4.2 Schistocytes APTT Sodium 144 Potassium 2.9 L Chloride 108 H Carbon Dioxide 29 Anion Gap 7 BUN 16 Creatinine 0.65 L Estim Creat Clear Calc Not Reportable Estimated GFR > 60 Glucose 150 H POC Capillary Glucose Calcium 8.1 L Phosphorus 2.6 Magnesium 1.9 Transferrin Total Bilirubin 0.7 AST 41 H ALT 53 H Alkaline Phosphatase 62 Total Protein 5.0 L Albumin 3.0 L Hospitalist MIPS Advance Care Plan I have confirmed that the patient's Advanced Care Plan is present, code status is documented, or surrogate decision maker is listed in patient medical record.: Yes Medication Reconciliation I have utilized all available resources to obtain, update and review the patients current medications (includes all prescriptions, OTC, herbals, cannabis, and nutritional supplements).: Yes
[2024-08-10] MEDS: LIDOCAINE 5% PATCH 1 PATCH TRANSDERM (08:18)
[2024-08-10] MEDS: PANTOPRAZOLE SODIUM IV 40 MG VIAL IV PUSH (08:18)
[2024-08-10] MEDS: PHENYTOIN SOD 250 MG/5 ML 225 MG IV PUSH ×2 (08:18→22:37)
--- NOTE | 2024-08-10 09:10 | P.PNGS_ITS ---
Progress Note: A&P Assessment and Plan (1) Gastric outlet obstruction: Code(s): K31.1 - Adult hypertrophic pyloric stenosis Status: Acute Assessment and Plan: * Unclear etiology. Her stomach was severely distended again after NG removal, which was present during admission as well. G-tube is to gravity. * Esophogram and UGI today. * Continue TPN (2) Small bowel obstruction: Code(s): K56.609 - Unspecified intestinal obstruction, unspecified as to partial versus complete obstruction Status: Acute Assessment and Plan: * Initially presented with SBO felt secondary to the left inguinal hernia, which was repaired. This initially improved, but after trial of liquids and NG removal, she developed a severely distended stomach. She was taken back to surgery last night for concerns of bowel ischemia and was found to have suspected abdominal compartment syndrome and gastric outlet obstruction. * Await return of bowel function, see plan above (3) Sepsis: Code(s): A41.9 - Sepsis, unspecified organism Status: Acute Assessment and Plan: * Continue IV antibiotics, no bowel ischemia during surgery overnight, off vasopressors * OK to transfer out of ICU (4) Incarcerated left inguinal hernia: Code(s): K40.30 - Unilateral inguinal hernia, with obstruction, without gangrene, not specified as recurrent Status: Acute Assessment and Plan: * Postop day 5 following open left inguinal hernia repair. Repair intact, incision healing well. Subjective Subjective Date/Time Seen: 08/10/24 09:10 Interval history: Breathing better today. Got up to chair and did some walking yesterday. G-tube is to gravity. No flatus or BM yet. After further discussion with patient, it sounds like she had a hx of Mora's esophagitis and Marcos fundoplication was performed as treatment of her GERD. Exam Const: General: comfortable and no acute distress GI: Inspection: non-distended and incision (Intact with whitley) GI Palp: Yes Soft to palpation, No Tenderness to palpation present (GI) and No Guarding due to palpation present (GI) Auscultation: Hypoactive bowel sounds present Objective Data Vital Signs Vital Signs: Vital Signs - 24 hr 08/09/24 10:00 08/09/24 10:00 08/09/24 12:00 Temperature 97.9 F 97.1 F L Pulse Rate 83 83 77 Respiratory Rate 20 23 H Blood Pressure 119/52 L 114/57 L Pulse Oximetry 91 95 Oxygen Delivery Oxygen Flow Rate 08/09/24 12:00 08/09/24 12:00 08/09/24 14:00 Temperature 98.4 F Pulse Rate 82 79 88 Respiratory Rate 22 H 20 Blood Pressure 121/54 L Pulse Oximetry 95 94 Oxygen Delivery Room Air Oxygen Flow Rate 08/09/24 14:00 08/09/24 16:00 08/09/24 16:00 Temperature 98.3 F Pulse Rate 79 80 87 Respiratory Rate 21 H 20 Blood Pressure 118/57 L Pulse Oximetry 94 96 Oxygen Delivery Room Air Oxygen Flow Rate 08/09/24 16:00 08/09/24 18:00 08/09/24 20:00 Temperature Pulse Rate 92 75 Respiratory Rate Blood Pressure Pulse Oximetry 93 Oxygen Delivery Nasal Cannula Oxygen Flow Rate 2 08/09/24 20:00 08/09/24 20:10 08/09/24 22:00 Temperature 98.6 F Pulse Rate 76 76 78 Respiratory Rate 24 H Blood Pressure 125/61 Pulse Oximetry 93 Oxygen Delivery Oxygen Flow Rate 08/10/24 00:00 08/10/24 00:00 08/10/24 00:00 Temperature 99.2 F Pulse Rate 64 70 Respiratory Rate 13 Blood Pressure 119/63 Pulse Oximetry 98 98 Oxygen Delivery Nasal Cannula Oxygen Flow Rate 2 08/10/24 02:00 08/10/24 04:00 08/10/24 04:00 Temperature Pulse Rate 65 76 Respiratory Rate Blood Pressure Pulse Oximetry 98 Oxygen Delivery Nasal Cannula Oxygen Flow Rate 2 08/10/24 04:13 08/10/24 06:00 08/10/24 06:00 Temperature 99.1 F Pulse Rate 79 67 64 Respiratory Rate 20 19 Blood Pressure 139/70 139/63 Pulse Oximetry 98 97 Oxygen Delivery Oxygen Flow Rate 08/10/24 08:00 Temperature 97.7 F Pulse Rate 72 Respiratory Rate 20 Blood Pressure 133/71 Pulse Oximetry 96 Oxygen Delivery Oxygen Flow Rate Intake/Output Intake/Output: Intake & Output 08/08/24 08/08/24 08/09/24 08/10/24 00:59 23:59 23:59 23:59 Intake Total 2950 4088.7 1907.6 500 Output Total 236 1535 4100 1025 Balance 2714 2553.7 -2192.4 -525 Meds/Results Medications: Active Medications Generic Name Dose Route Start Last Admin Trade Name Freq PRN Reason Stop Dose Admin Dextrose 12.5 gm 08/09/24 07:57 Dextrose 50% 25 Gm/50 Ml Syringe IV PUSH PRN PRN Hypoglycemia Protocol Enoxaparin Sodium 40 mg 08/05/24 09:00 08/08/24 09:34 Enoxaparin 40 Mg/0.4 Ml Syringe SUB-Q 40 mg DAILY MORGAN Administration Glucagon 1 mg 08/09/24 07:57 Glucagon For Inj 1 Mg Vial IM PRN PRN Hypoglycemia Protocol Glucose 15 gm 08/09/24 07:57 Glucose Oral Gel 15 Gm Of Glucse In 37.5 Gm Tube PO PRN PRN Hypoglycemia Protocol Hydrocortisone Sodium Succinate 100 mg 08/08/24 14:00 08/10/24 05:59 Hydrocortisone Sodium Succinate 100 Mg/2 Ml Vial IV PUSH 100 mg Q8HR MORGAN Administration Hydromorphone HCl 0.5 mg 08/09/24 11:55 08/09/24 20:16 Hydromorphone Hcl Inj (*Crx) 1 Mg/Ml Syr IV PUSH 0.5 mg Q2H PRN Administration Pain Rated 7-10 Ibuprofen 800 mg in 200 mls @ 400 mls/hr 08/08/24 05:45 08/09/24 09:06 Caldolor 800 Mg/200 Ml IVPB Infused Q6H PRN Infusion Breakthrough Pain Rated 1-3 or NPO Piperacillin/Tazobactam/Dextrose 3.375 gm in 50 mls @ 100 mls/hr 08/08/24 10:05 08/10/24 06:29 Zosyn 3.375 Gm/Ns 50 Ml IVPB Infused Q6HR MORGAN Infusion Dextrose 1,000 mls @ 100 mls/hr 08/09/24 07:57 Dextrose 5% 1,000 Ml IVPB PRN PRN Hypoglycemia Protocol Dextrose 1,000 mls @ 50 mls/hr 08/09/24 12:28 Dextrose 10% IV CONT .Q20H PRN if PN is interrupted Multivitamins 1.25 ml/ 1,002.5 mls @ 20 mls/hr 08/09/24 13:30 08/09/24 13:13 Multivitamins 1.25 ml/ Amino IV CONT 20 mls/hr Acids/Electrolytes/Dextrose .Q24H MORGAN Administration Protocol Fat Emulsion Intravenous 250 mls @ 20.833 mls/hr 08/09/24 13:30 08/10/24 01:15 Lipids 20% IVPB Infused Q24H MORGAN Infusion Potassium Chloride 100 mls @ 25 mls/hr 08/10/24 08:20 Kcl 40 Meq/Water 100 Ml IVPB 08/10/24 12:19 ONCE ONE Insulin Aspart 2 - 5 units 08/09/24 12:00 08/10/24 05:40 Insulin Aspart (*Bkc) 100 Units/Ml SUB-Q Not Given Q6HR MORGAN Protocol Lidocaine 1 patch 08/04/24 10:25 08/10/24 08:18 Lidocaine 5% Patch TRANSDERM 1 patch DAILY MORGAN Administration Naloxone HCl 0.1 mg 08/08/24 05:45 Naloxone Hcl 0.4 Mg/Ml Vial IV PUSH Q2M PRN Opiate Reversal Ondansetron HCl 4 mg 08/03/24 15:38 08/07/24 20:18 Ondansetron Inj 4 Mg/2 Ml Vial IV PUSH 4 mg Q4H PRN Administration Nausea Pantoprazole Sodium 40 mg 08/04/24 09:00 08/10/24 08:18 Pantoprazole Sodium Iv 40 Mg Vial IV PUSH 40 mg QAM MORGAN Administration Perflutren Lipid Microsphere 0 ml 08/08/24 08:45 Perflutren Lipid Microspheres 1.5 Ml Vial Diluted To 10 Ml Total Volume IV PUSH 08/11/24 08:46 ONCE PRN adequate visualization Protocol Phenytoin Sodium 225 mg 08/07/24 21:15 08/10/24 08:18 Phenytoin Sod 250 Mg/5 Ml Vial (*Bkc) IV PUSH 225 mg Q12HR MORGAN Administration Sodium Chloride 20 ml 08/06/24 23:57 08/07/24 06:05 Central Line Flush IV PUSH 20 ml PRN PRN Administration after blood draws Sodium Chloride 10 ml 08/06/24 23:57 Central Line Flush IV PUSH PRN PRN with TPN bag changes Sodium Chloride 10 ml 08/07/24 06:00 08/10/24 06:19 Central Line Flush IV PUSH 10 ml Q8HR MORGAN Administration Radiology Results: ITS Impressions Abdomen X-Ray 08/08/24 05:43 Impression: NG tube in place, as above. Marked gaseous distention of several probable dilated small bowel loops. Correlate for small bowel obstruction versus ileus. Abdomen/Pelvis CT 08/08/24 06:07 Impression: Findings highly suspicious for extensive bowel ischemia, extensive small bowel and gastric pneumatosis and extensive portal venous gas. Extensive dilatation of small bowel loops and stomach with decompression of large bowel. Transition point not well delineated, but findings are highly suspicious for distal small bowel obstruction. NG tube tip at the GE junction. Further advancement of NG tube into the stomach is required for adequate placement. Small bilateral pleural effusions. Chest X-Ray 08/10/24 06:32 Impression: Central congestive change and probable mild bibasilar pulmonary edema. Support tubes, as above. Labs Labs: Laboratory Results - last 24 hr 08/09/24 08/09/24 08/09/24 11:56 13:04 13:05 WBC 13.3 H RBC 2.70 L Hgb 8.9 L Hct 26.6 L MCV 98.5 MCH 33.0 MCHC 33.5 RDW 14.2 Plt Count 58 L MPV 10.9 H Immature Gran % (Auto) Not Reportable Neut % (Auto) Not Reportable Lymph % (Auto) Not Reportable [place] % (Auto) Not Reportable Eos % (Auto) Not Reportable Baso % (Auto) Not Reportable Lymph # (Auto) Not Reportable [place] # (Auto) Not Reportable Eos # (Auto) Not Reportable Baso # (Auto) Not Reportable Abs Immat Gran (auto) Not Reportable Absolute Neuts (auto) Not Reportable Absolute Nucleated RBC Not Reportable Total Counted 100 Neutrophils % (Manual) 80 H Band Neutrophils % 10 H Lymphocytes % (Manual) 6 L Monocytes % (Manual) 3 Metamyelocytes % 1 Nucleated RBC % Not Reportable Abs Neuts (Manual) 11.97 H Abs Lymphs (Manual) 0.79 L Abs Monocytes (Manual) 0.39 Platelet Estimate Decreased % Immature Plt Fraction 3.7 Schistocytes None seen APTT 33.1 Sodium 144 Potassium 2.8 L* Chloride 109 H Carbon Dioxide 26 Anion Gap 9 BUN 15 Creatinine 0.72 Estim Creat Clear Calc Not Reportable Estimated GFR > 60 Glucose 127 H POC Capillary Glucose 133 H Calcium 8.1 L Phosphorus Magnesium 1.8 Transferrin < 80 L Total Bilirubin 0.8 AST 55 H ALT 50 H Alkaline Phosphatase 55 Total Protein 5.0 L Albumin 3.0 L 08/09/24 08/09/24 08/10/24 14:07 17:59 00:04 WBC RBC Hgb Hct MCV MCH MCHC RDW Plt Count MPV Immature Gran % (Auto) Neut % (Auto) Lymph % (Auto) [place] % (Auto) Eos % (Auto) Baso % (Auto) Lymph # (Auto) [place] # (Auto) Eos # (Auto) Baso # (Auto) Abs Immat Gran (auto) Absolute Neuts (auto) Absolute Nucleated RBC Total Counted Neutrophils % (Manual) Band Neutrophils % Lymphocytes % (Manual) Monocytes % (Manual) Metamyelocytes % Nucleated RBC % Abs Neuts (Manual) Abs Lymphs (Manual) Abs Monocytes (Manual) Platelet Estimate % Immature Plt Fraction Schistocytes APTT Sodium Potassium Chloride Carbon Dioxide Anion Gap BUN Creatinine Estim Creat Clear Calc Estimated GFR Glucose POC Capillary Glucose 161 H 135 H Calcium Phosphorus 2.3 L Magnesium Transferrin Total Bilirubin AST ALT Alkaline Phosphatase Total Protein Albumin 08/10/24 04:40 WBC 12.9 H RBC 2.85 L Hgb 9.5 L Hct 28.1 L MCV 98.6 MCH 33.3 MCHC 33.8 RDW 14.1 Plt Count 60 L MPV 10.5 H Immature Gran % (Auto) Neut % (Auto) Lymph % (Auto) [place] % (Auto) Eos % (Auto) Baso % (Auto) Lymph # (Auto) [place] # (Auto) Eos # (Auto) Baso # (Auto) Abs Immat Gran (auto) Absolute Neuts (auto) Absolute Nucleated RBC Total Counted Neutrophils % (Manual) Band Neutrophils % Lymphocytes % (Manual) Monocytes % (Manual) Metamyelocytes % Nucleated RBC % Abs Neuts (Manual) Abs Lymphs (Manual) Abs Monocytes (Manual) Platelet Estimate % Immature Plt Fraction 4.2 Schistocytes APTT Sodium 144 Potassium 2.9 L Chloride 108 H Carbon Dioxide 29 Anion Gap 7 BUN 16 Creatinine 0.65 L Estim Creat Clear Calc Not Reportable Estimated GFR > 60 Glucose 150 H POC Capillary Glucose Calcium 8.1 L Phosphorus 2.6 Magnesium 1.9 Transferrin Total Bilirubin 0.7 AST 41 H ALT 53 H Alkaline Phosphatase 62 Total Protein 5.0 L Albumin 3.0 L
[2024-08-10] MEDS: KCL 40 MEQ/WATER 100 ML 100 ML 25 ML IVPB (10:23)
--- NOTE | 2024-08-10 10:44 | PCNFU ---
Nutrition Follow-Up Complete: Altered GI function as related to SBO/Ileus as evidenced by TPN. Goal: Meet estimated nutritional needs. Patient is progressing towards goal. We will continue current goal. Pt current nutrition is TPN at 40 ml/hr. Nutrition recommendation: agree with current rate, increased tomorrow to 50 ml/hr. Last recorded weight is 57.8 kg, stable Bowel Motility: +BM reported 08/07 Labs Reviewed: Glu 150, Cr 0.65, K 2.9, Alb 3.0, Hct 28.1, Hgb 9.5 Meds Noted: Clinimix E 5/15 at 40 ml/hr, 20% of 250 ml Lipid Emulsion Skin: WNL Additional Notes: Patient has G tube to gravity. TPN advanced today to 40 ml/hr, which is providing 1182 kcal/48 gm protein. Agree with diet orders at this time. Will monitor weight, labs, skin, diet orders, meds every Thursday and Thursday.
[2024-08-10 12:04] LABS: Glucose Point of Care 141 mg/dl (65-105)
[2024-08-10 12:42] LABS: Triglycerides 80 mg/dL (<150)
[2024-08-10] MEDS: FAT EMULSIONS IV 20% 250 ML 20.83 ML IVPB (13:18)
[2024-08-10] MEDS: AMINO ACIDS 5%/D15W/E-LYTES/CA 1,000 ML with MULTIVITAMINS-12 INJ VIAL 1 1.25 ML, MULTI... 40 ML IV CONT (13:18)
--- NOTE | 2024-08-10 13:49 | PCOTNOTE ---
Attempted to see pt. for occupational therapy reevalaution. Pt. declined, having just worked with PT, and reporting need for rest break.
[2024-08-10] MEDS: FUROSEMIDE INJ 40 MG/4 ML VIAL 20 MG IV PUSH (17:32)
[2024-08-10 18:03] LABS: Glucose Point of Care 126 mg/dl (65-105)
[2024-08-11] VITALS (10 sets, daily range): BP systolic 99–126; BP diastolic 56–67; PULSE 66–85; RESP 17–23; TEMP 36.8–37.1; O2SAT 96–100
[2024-08-11] MEDS: PIPERACILLN/TAZ 3.375GM/NS50ML 3.375 GM/50 ML BAG IVPB ×4 (02:00→17:27)
[2024-08-11 04:34] LABS: Glucose Point of Care 140 mg/dl (65-105)
[2024-08-11 06:23] LABS: Hematocrit 29.4 % (37.0-47.0); Hemoglobin 9.9 g/dL (12.0-15.0); Immature Platelet Fraction Pct 3.4 % (0.9-11.2); Mean Corpuscular HGB Conc 33.7 g/dl (32-36); Mean Corpuscular Hemoglobin 33.1 pg (26-34); Mean Corpuscular Volume 98.3 fl (80-100); Mean Platelet Volume 10.5 fl (7.4-10.4); Platelet Count Result 60 k/mm3 (150-375); Red Blood Count 2.99 M/mm3 (4.2-5.4); Red Cell Distribution Width 13.8 % (11.5-14.5); White Blood Count 6.2 K/mm3 (4.5-10.0)
[2024-08-11 06:53] LABS: Alanine Aminotransferase 37 U/L (6-35); Albumin Level 2.6 g/dL (3.5-5.1); Alkaline Phosphatase 56 U/L (38-126); Anion Gap 6 mmol/L (4-12); Aspartate Amino Transferase 24 U/L (14-36); Bilirubin,Total 0.6 mg/dL (0.2-1.3); Blood Urea Nitrogen 22 mg/dL (7-17); Calcium 7.7 mg/dL (8.4-10.2); Carbon Dioxide 32 mmol/L (22-30); Chloride 103 mmol/L (98-107); Estimated Glomerular Filt Rate > 60; Glucose 138 mg/dL (65-110); Magnesium 1.9 mg/dL (1.6-2.3); Phosphorus 2.7 mg/dL (2.5-4.5); Potassium 2.5 mmol/L (3.4-5.0); Sodium 141 mmol/L (137-145)
[2024-08-11] MEDS: CENTRAL LINE FLUSH 10 ML IV PUSH ×3 (07:59→21:29)
[2024-08-11 08:28] LABS: Band Neutrophils Percent 4 % (0-6); Lymphocytes Absolute Manual 0.37 K/mm3 (1.1-4.5); Lymphocytes Percent Manual 6 % (18-44); Monocytes Absolute Manual 0.06 K/mm3 (0.1-0.90); Monocytes Percent Manual 1 % (3-9); Neutrophils Absolute Manual 5.76 K/mm3 (1.7-7.2); Neutrophils Percent Manual 89 % (46-73); Total Cells Counted 100
[2024-08-11 08:29] LABS: Platelet Estimate Decreased (Adequate); Schistocytes None Seen
[2024-08-11] MEDS: PANTOPRAZOLE SODIUM IV 40 MG VIAL IV PUSH (10:06)
[2024-08-11] MEDS: KCL 40 MEQ/WATER 100 ML 100 ML 25 ML IVPB ×2 (10:06→14:07)
[2024-08-11] MEDS: LIDOCAINE 5% PATCH 1 PATCH TRANSDERM (10:06)
[2024-08-11] MEDS: PHENYTOIN SOD 250 MG/5 ML 225 MG IV PUSH ×2 (10:06→21:28)
[2024-08-11] MEDS: MAGNESIUM SULF 1 GM/D5W 100 ML 1 GM/100 ML BAG IVPB (10:07)
--- NOTE | 2024-08-11 10:09 | P.CONGI_ITS ---
<Statement entered by Javier Moreno MD - 08/11/24 16:20> I, Javier Moreno MD, have provided a substantive portion of the care of this patient and discussed the patient with my Nurse Practitioner. I have reviewed any new relevant radiographic and laboratory results including medications. I agree with her documentation as noted below.?I personally performed the medical decision making and much of the history and exam for this encounter. briefly, she has remote esophageal surgery about 20 years ago, admitted with abdominal pain and inguinal hernia but then developed abdominal distension and had open gastrostomy tube placement for decompression. Still with persistent NGT output, UGI series showed possible effect from fundoplication causing reflux. Plan is EGD tomorrow to investigate. Still on NGT, she is getting TPN. Today we could not do EGD because hypokalemia. Assessment and Plan Assessment and plan (1) Small bowel ischemia: Code(s): K55.9 - Vascular disorder of intestine, unspecified <Joyce Be APRN - Last Filed: 08/11/24 10:41> Status: Acute <Joyce D. Haile, [employer] - Last Filed: 08/11/24 10:41> (2) Gastric outlet obstruction: Code(s): K31.1 - Adult hypertrophic pyloric stenosis <Joycechaim Be APRN - Last Filed: 08/11/24 10:41> Status: Acute <Joyce DSemaj Be [employer] - Last Filed: 08/11/24 10:41> (3) Small bowel obstruction: Code(s): K56.609 - Unspecified intestinal obstruction, unspecified as to partial versus complete obstruction <Joyce DSemaj Be APRN - Last Filed: 08/11/24 10:41> Status: Acute <Joyce DSemaj Be APRN - Last Filed: 08/11/24 10:41> (4) Generalized abdominal pain: Code(s): R10.84 - Generalized abdominal pain <Joyce DSemaj Be APRN - Last Filed: 08/11/24 10:41> Status: Acute <Joyce DSemaj Be APRN - Last Filed: 08/11/24 10:41> (5) Weight loss: Code(s): R63.4 - Abnormal weight loss <Joyce Be [employer] - Last Filed: 08/11/24 10:41> Status: Acute <Joyce Be, [employer] - Last Filed: 08/11/24 10:41> (6) Appetite loss: Code(s): R63.0 - Anorexia <Joyce Be, [employer] - Last Filed: 08/11/24 10:41> Status: Acute <Joyce Be, [employer] - Last Filed: 08/11/24 10:41> (7) Early satiety: Code(s): R68.81 - Early satiety <Joyce Be, [employer] - Last Filed: 08/11/24 10:41> Status: Acute <Joyce Be, [employer] - Last Filed: 08/11/24 10:41> (8) Esophageal dysmotility: Code(s): K22.4 - Dyskinesia of esophagus <Joyce Be, [employer] - Last Filed: 08/11/24 10:41> Status: Acute <Joyce Be, [employer] - Last Filed: 08/11/24 10:41> (9) Anemia: Qualifiers: Anemia type: unspecified type Qualified Code(s): D64.9 - Anemia, unspecified <Joyce Be [employer] - Last Filed: 08/11/24 10:41> Code(s): D64.9 - Anemia, unspecified <Joyce Be, [employer] - Last Filed: 08/11/24 10:41> Status: Acute <Joyce Be, [employer] - Last Filed: 08/11/24 10:41> Assessment and Plan: 1. Small bowel obstruction/ gastric outlet obstruction/early satiety/weight loss/ esophageal dysmotility: Patient states that she has never had an EGD. Sounds like she has a Hx of Marcos fundoplication > 20 years but no further details provided. According to the patient's daughter, the patient had not been complaining of any GI issues but last year between September-April 2024 the family noticed decreased appetite and obvious weight loss. Patient presented to the ER 08/03/2024 with complaints of abdominal pain and possible obstruction. Patient was found to have an incarcerated left inguinal hernia and underwent surgery on the . Following surgery when NG tube was removed the patient started having significant abdominal pain and distension, CT showed findings highly suspicious for extensive bowel ischemia, extensive small bowel and gastric pneumatosis and extensive portal venous gas.Extensive dilatation of small bowel loops and stomach with decompression of large bowel. Transition point not well delineated, but findings are highly suspicious for distal small bowel obstruction. Patient then had an exploratory laparotomy open gastrostomy tube placement on 08/08/2024 for gastric outlet obstruction suspected abdominal compartment syndrome. Patient continued to have complications and upper GI series 08/10/2024 showed significant esophageal reflux is also detected. Delayed passage of Gastrografin into the stomach, with external compression of the proximal stomach for which (likely) prior fundoplication is suspected. The oral contrast did not migrate out of the proximal stomach, for the duration of the examination. Significantly dilated loops of colon are also noted, as is air within the rectum. Patient is receiving TPN. DDX: Post Marcos complication vs motility disorder vs gastric outlet obstruction vs neoplasm vs ischemia. * EGD today * symptoms may be related to more than one etiology, based on EGD findings, may consider MRA vs CTA to further evaluate for possible causes of ischemia * NG tube cramped, LIS if needed * Continue TPN * Continue PPI * further recommendations to follow endoscopy 2. Anemia /thrombocytopenia: Labs today showed WBC 6, HGB 10, HCT 9, MCV 98, platelets 60. No signs of active GI bleeding. * Primary care team to continue monitoring H&H transfuse as needed to keep HGB > 7 * EGD pending will eval for upper GI source of blood loss Thank you very much for allowing me to share in the care of this very nice patient. This report may have been done utilizing a voice recognition system. Attempts have been made to correct errors. However, there may be uncorrected grammatical, spelling, and recognition errors present. <Joyce Be APRN - Last Filed: 08/11/24 10:41> GI Consult Note Consult date/time: 08/11/24 10:09 <Joyce Be APRN - Last Filed: 08/11/24 10:41> Reason for consult: Gastric outlet obstruction <Joyce BeDALILA - Last Filed: 08/11/24 10:41> HPI: This is a 69-year-old female the past medical-surgical history of seizures, migraines, thyroid nodules, arthritis, history of hiatal hernia repair who presented to the emergency room 08/03/2024 with complaints of abdominal pain and possible obstruction. At that time patient states that she had not been passing gas or stool for a few days. Patient was admitted for small-bowel obstruction and incarcerated inguinal hernia. GI has been consulted for gastric outlet obstruction. Patient was seen with daughter Jenny at bedside throughout the entire visit. Patient had surgery 08/03/[address] Jett for open incarcerated left femoral hernia repair without mesh placement. patient had a rapid response later that day on 08/07/2024 due to abdominal distention and KUB showing severe gastric distension. She was shown to have findings of pneumatosis and portal venous gas to typically seen in the setting of bowel ischemia. At that time the plan was for an emergent exploratory laparotomy with possible bowel resection and on 08/08/2024 the patient had an exploratory laparotomy open gastrostomy tube placement for gout scope trick outlet obstruction suspected abdominal compartment syndrome. despite surgical intervention the patient continued to have severe abdominal distension when NG tube was removed. She currently has an NG tube to the left nare that is not connected to suction. She also has a G-tube draining green fluid into Hinds bag. According to the patient's daughter symptoms seem to be acute onset on the the patient was noted to have some significant weight loss last year between September and April but this was unmeasured. Current weight 127 lbs. prior to admission the patient states that she had a decreased appetite and early satiety otherwise denied any GI complaints. She denies any abdominal pain, nausea, vomiting, odynophagia, dysphagia, regurgitation. She has occasional reflux which she states is secondary to known her triggering foods but nothing that is chronic. She is typically having regular bowel movements that are formed and not urgent. Denies any diarrhea, constipation, hematochezia, or melena. Starter does states that somewhat difficult to determine if the patient is being 100% forthcoming with her symptoms prior to admission as she is very stubborn . Patient has a 2nd cousin with history of colon cancer but family history all otherwise negative. She denies any chronic NSAID use. She denies any aspirin or anticoagulant use. She is a nondrinker, nonsmoker and denies marijuana use. ENDOSCOPY HISTORY: EGD: Patient has never had an EGD COLONOSCOPY: 11/11/[address] Youssef for positive Cologuard Findings: There was a single small sessile polyp observed in the transverse colon. The seen benign in nature. Hot snare polypectomy was performed and polyp was completely excised and retrieved There was a small medium pedunculated polyp observed in the sigmoid colon. There was no bleeding. The appearance seen benign in nature. Hot snare polypectomy was performed polyp was completely excised and retrieved A few small-sized uncomplicated internal hemorrhoids seen in the rectum that were not actively bleeding Five year repeat colonoscopy recommended Bx results: Large intestine, transverse colon polyp, polypectomy (A): - Tubular adenoma Large intestine, sigmoid colon polyp, polypectomy (B): - Tubular adenoma LABS AND STOOL STUDIES: LABS 08/11/2024: Sodium 141, potassium 2.5, BUN 22, creatinine 0.52, GFR >60 WBC 6, Hgb 10, Hct 29, MCV 98, and platelets 60 Total bilirubin 0.6, AST 24, ALT 37, Alkaline phosphatase 56, albumin 2.6 Calcium 7.7, phosphorus 0.7, magnesium 1.9, procalcitonin 4.7, lipase 934 IMAGING: Upper GI series 08/10/2024: FINDINGS: The patient swallowed Gastrografin without difficulty. Esophageal dysmotility is also noted, with aggressive tertiary contractions. Significant esophageal reflux is also detected. Delayed passage of Gastrografin into the stomach, with external compression of the proximal stomach for which (likely) prior fundoplication is suspected. The oral contrast did not migrate out of the proximal stomach, for the duration of the examination. Significantly dilated loops of colon are also noted, as is air within the rectum. Extraluminal air is also present, and system with patient's history. IMPRESSION: Findings within the distal esophagus/proximal stomach for which prior fundoplication is suspected. Esophageal dysmotility and significant esophageal reflux is also detected. CT abd/pelvis w/o contrast 08/08/2024: Impression: Findings highly suspicious for extensive bowel ischemia, extensive small bowel and gastric pneumatosis and extensive portal venous gas. Extensive dilatation of small bowel loops and stomach with decompression of large bowel. Transition point not well delineated, but findings are highly suspicious for distal small bowel obstruction. NG tube tip at the GE junction. Further advancement of NG tube into the stomach is required for adequate placement. Small bilateral pleural effusions. Abdominal Xray 08/08/2024: Impression: NG tube in place, as above. Marked gaseous distention of several probable dilated small bowel loops. Correlate for small bowel obstruction versus ileus. Abdominal Xray 08/07/2024: IMPRESSION: NG tube not visualized. Severe gastric distention. Small bowel ileus or obstruction. CT abd/pelvis w/contrast 08/03/2024: FINDINGS: The visualized portions of the lung bases demonstrate mild atelectasis. No pleural effusion. The heart size is normal. No pericardial effusion. There is fluid in the esophagus. The stomach is distended. The liver, spleen, pancreas, adrenal glands, and kidneys are normal. There is a left inguinal hernia containing small bowel. The bowel is dilated proximal to the hernia and decompressed distal to the hernia. There is a right inguinal hernia containing ascites. There are no pathologically enlarged lymph nodes. There is thoracolumbar levoscoliosis and severe spondylosis. There is mild chronic anterior wedging of multiple thoracic vertebral bodies. IMPRESSION: 1. Left inguinal hernia containing small bowel with small bowel obstruction. 2. Right inguinal hernia containing ascites. <Joyce Be APRN - Last Filed: 08/11/24 10:41> Review of Systems 2 Constitutional: Constitutional: Reports as per HPI, Reports fatigue and Reports weakness <Joyce Be APRN - Last Filed: 08/11/24 10:41> ENT: Reports as per HPI <Joyce Be APRN - Last Filed: 08/11/24 10:41> Comments: ng tube left nare, clamped off <Joyce Be APRN - Last Filed: 08/11/24 10:41> Cardiovascular: Cardiovascular: Reports as per HPI, Denies chest pain, Denies leg edema and Denies dyspnea <Joyce Be APRN - Last Filed: 08/11/24 10:41> Respiratory: Respiratory: Denies cough and Reports dyspnea <Joyce CastilloeSmaj Be APRN Last Filed: 08/11/24 10:41> Gastrointestinal: Gastrointestinal: Reports as per HPI <Joyce CastilloSemaj Be APRN Last Filed: 08/11/24 10:41> Musculoskeletal: Musculoskeletal: Reports as per HPI <Joyce CastilloSemaj Be [employer] Last Filed: 08/11/24 10:41> Integumentary/Breasts: Skin/Breast: Reports as per HPI <Joyce CastilloSemaj Be [employer] Last Filed: 08/11/24 10:41> Comments: abdominal incisions causing pain <Joycechaim Be APRN Last Filed: 08/11/24 10:41> Psychiatric: Psychiatric: Reports as per HPI <Joyce Maureen Be [employer] Last Filed: 08/11/24 10:41> Endocrine: Endocrine: Reports no additional endocrine complaints <Joyce Maureen Be [employer] Last Filed: 08/11/24 10:41> Hematologic/Lymphatic: Hematologic/Lymphatic: Reports no additional hematologic/lymphatic complaints <Joyce Maureen Be [employer] Last Filed: 08/11/24 10:41> PMFSH Past Medical History Medical History: Medical History Small bowel obstruction Ileus, postoperative Nontoxic thyroid nodule Seizures Migraines Arthritis <Joycechaim Be APRN Last Filed: 08/11/24 10:41> Surgical History Surgical History: Surgical History History of repair of hiatal hernia Laparoscopic <Joycechaim Be APRN Last Filed: 08/11/24 10:41> Family History Family History: Family History Father Diabetes mellitus Diabetic neuropathy Mother Acute myocardial infarction Hypertension Son No problems noted. <Joycechaim Be APRN Last Filed: 08/11/24 10:41> Social History Social History: Social History Smoking status: Former smoker Alcohol intake: never Alcohol use details: seldom; socially Substance use: never Substance use type: does not use Do You Feel Safe in your Home?: Yes Lack of Transportation: No Lack of Food: Never True Current Housing: I Have Housing Concerned About Future Housing: No Difficulty Paying Gas/Electric Bills: No Difficulty Paying for Meds: No Currently Unemployed: No Education: High School Diploma/GED Difficulty w/ Childcare or Family Care: No Living arrangements: alone Spiritual care concerns: No Agree to blood products: Yes <Joyce Be APRN - Last Filed: 08/11/24 10:41> Meds Home Medications and Allergies Home medications: Home Medications ?Medication ?Instructions ?Recorded ?Confirmed ?Type multivitamin 1 tablet PO DAILY 01/14/22 08/03/24 History triamcinolone acetonide 0.1 % 1 applic topical BID #15 grams 03/04/23 08/03/24 Rx topical cream phenytoin 50 mg chewable tablet 50 mg PO QPM #30 tabs 01/12/24 08/03/24 Rx (Dilantin Infatabs) phenytoin sodium extended 100 mg 100 mg PO .COMPLEX #180 caps 01/20/24 08/03/24 Rx capsule (Dilantin Extended) ondansetron HCl 8 mg tablet 8 mg PO Q8H PRN nausea and 08/01/24 08/03/24 Rx vomiting 3 days #10 tabs <Joyce Be APRN - Last Filed: 08/11/24 10:41> Allergies/Adverse reactions: Allergies Allergy/AdvReac Type Severity Reaction Status Date / Time No Known Allergies Allergy Verified 08/03/24 12:46 <Joyce Be APRN - Last Filed: 08/11/24 10:41> Vital Signs Vital Signs - 24 hr 08/10/24 12:00 08/10/24 12:00 08/10/24 12:00 Temperature 98.6 F Pulse Rate 76 70 Respiratory Rate 20 Blood Pressure 131/64 Pulse Oximetry 96 96 Oxygen Delivery Nasal Cannula Oxygen Flow Rate 2 Fraction of Inspired Oxygen 08/10/24 14:00 08/10/24 14:00 08/10/24 16:00 Temperature 98.1 F Pulse Rate 76 74 77 Respiratory Rate 22 H 22 H Blood Pressure 126/89 121/65 Pulse Oximetry 94 96 Oxygen Delivery Oxygen Flow Rate Fraction of Inspired Oxygen 08/10/24 16:00 08/10/24 16:00 08/10/24 18:00 Temperature Pulse Rate 80 77 Respiratory Rate 22 H Blood Pressure 123/61 Pulse Oximetry 96 98 Oxygen Delivery Nasal Cannula Oxygen Flow Rate 2 Fraction of Inspired Oxygen 08/10/24 18:00 08/10/24 20:00 08/10/24 20:00 Temperature 98.6 F Pulse Rate 74 72 72 Respiratory Rate 23 H 23 H Blood Pressure 127/61 Pulse Oximetry 96 97 Oxygen Delivery Nasal Cannula Oxygen Flow Rate 2 Fraction of Inspired Oxygen 28 08/10/24 20:00 08/10/24 20:25 08/10/24 22:00 Temperature Pulse Rate 79 76 Respiratory Rate Blood Pressure Pulse Oximetry 97 Oxygen Delivery Nasal Cannula Oxygen Flow Rate 2 Fraction of Inspired Oxygen 28 08/10/24 23:06 08/11/24 00:00 08/11/24 04:00 Temperature Pulse Rate 72 68 66 Respiratory Rate 23 H 21 H 21 H Blood Pressure 123/65 116/61 Pulse Oximetry 97 96 97 Oxygen Delivery Nasal Cannula Oxygen Flow Rate 2 Fraction of Inspired Oxygen 28 08/11/24 04:00 08/11/24 09:09 08/11/24 09:37 Temperature Pulse Rate 72 Respiratory Rate 23 H Blood Pressure Pulse Oximetry 97 96 Oxygen Delivery Nasal Cannula Nasal Cannula Nasal Cannula Oxygen Flow Rate 2 2 2 Fraction of Inspired Oxygen 28 <Joyce Be APRN - Last Filed: 08/11/24 10:41> Exam 2 Const: General: cooperative, comfortable, no acute distress, well developed and uncomfortable <Joyce Be APRN - Last Filed: 08/11/24 10:41> Orientation/consciousness: oriented to person, oriented to place, oriented to time and patient oriented x3 <Joyce Be APRN - Last Filed: 08/11/24 10:41> HENMT: Head: normal to inspection, normocephalic and atraumatic <Joyce Be APRN - Last Filed: 08/11/24 10:41> Face/Nose/Sinus: nares abnormal (NG tube left nare, clamped off) <Joyce CastilloSemaj Be APRN - Last Filed: 08/11/24 10:41> Mouth: Yes Normal oral and palatal mucosa present and Yes moist mucous membranes <Joyce CastilloSemja Marilinmekhi [employer] - Last Filed: 08/11/24 10:41> Eyes: General: appearance normal, both eyes and all related structures < Joyce CastilloSemaj Be APRN - Last Filed: 08/11/24 10:41> Conjunctivae: conjunctivae normal <Joyce CastilloSemaj Marilinmekhi [employer] - Last Filed: 08/11/24 10:41> Sclera: sclerae normal <Joyce CastilloSemaj Marilinmekhi [employer] - Last Filed: 08/11/24 10:41> Pupils: Equal, round and reactive pupils present <Joyce CastilloSemaj Marilinmekhi [employer] - Last Filed: 08/11/24 10:41> Neck: Neck: normal visual inspection <Joyce Maureen Be [employer] Last Filed: 08/11/24 10:41> Chest: Chest palpation & inspection: normal inspection of the chest < Joyce Maureen Be [employer] Last Filed: 08/11/24 10:41> Resp: Effort & Inspection: normal respiratory effort and able to speak in complete sentences <Joyce CastilloSemaj Marilinmekhi [employer] Last Filed: 08/11/24 10:41> Auscultation: clear to auscultation bilaterally <Joyce Maureen Be APRN Last Filed: 08/11/24 10:41> Cardio: Jugular venous distension: no JVD <Joyce Maureen Be APRN - Last Filed: 08/11/24 10:41> Rate: regular rate <Joyce Maureen Be APRN - Last Filed: 08/11/24 10:41> Rhythm: regular rhythm <Joyce Maureen Be APRN - Last Filed: 08/11/24 10:41> Heart sounds: S1 normal heart sound present and S2 normal heart sound present <Joyce Maureen Be APRN - Last Filed: 08/11/24 10:41> GI: Inspection: normal to inspection <Joyce Be [employer] - Last Filed: 08/11/24 10:41> GI Palp: Yes Soft to palpation, No Firmness to palpation present (GI), No Tenderness to palpation present (GI), No Guarding due to palpation present (GI) and Yes No hepatosplenomegaly present <Joyce GastonDALILA gaming - Last Filed: 08/11/24 10:41> Auscultation: normal bowel sounds <Joyce Reddy SANDI BeN - Last Filed: 08/11/24 10:41> Rectal Exam: deferred <Joyce Reddy Haile [employer] - Last Filed: 08/11/24 10:41> Other: distended but soft. G tube gravity draining to hinds bag dark green fluid <Joyce CastilloSemaj Be APRN - Last Filed: 08/11/24 10:41> Urinary Catheter: Urinary Catheter: patent and draining <Joyce CastilloSemaj Be [employer] - Last Filed: 08/11/24 10:41> Skin: General skin exam: normal color and no rashes or lesions noted < Joyce Reddy Haile [employer] - Last Filed: 08/11/24 10:41> Neuro: General: oriented to person, oriented to place, oriented to time and patient oriented x3 <Joyce CastilloSemaj Be APRN - Last Filed: 08/11/24 10:41> Cranial nerves: Yes Equal, round and reactive pupils present <Joyce CastilloSemaj Be APRN - Last Filed: 08/11/24 10:41> Speech: normal speech <Joyce CastilloSemaj Be APRN - Last Filed: 08/11/24 10:41> Extrem: General: normal to inspection and no clubbing, cyanosis or edema < Joyce CastilloSemaj Be APRN - Last Filed: 08/11/24 10:41> Psych: Appearance: grossly normal and well kempt <Joyce CastilloSemaj Be APRN - Last Filed: 08/11/24 10:41> Affect: normal affect <Joyce CastilloSemaj Be APRN - Last Filed: 08/11/24 10:41> Results Labs CBC & Chem 7: 08/11/24 06:08 08/11/24 06:08 <Joyce Be APRN - Last Filed: 08/11/24 10:41> Labs: Short CBC 08/11/24 Range/Units 06:08 WBC 6.2 (4.5-10.0) K/mm3 Hgb 9.9 L (12.0-15.0) g/dL Hct 29.4 L (37.0-47.0) % Plt Count 60 L (150-375) k/mm3 BMP 08/11/24 06:08 Sodium 141 Potassium 2.5 L* Chloride 103 Carbon Dioxide 32 H BUN 22 H Creatinine 0.52 L Glucose 138 H Calcium 7.7 L Liver Function 08/11/24 Range/Units 06:08 Total Bilirubin 0.6 (0.2-1.3) mg/dL AST 24 (14-36) U/L ALT 37 H (6-35) U/L Alkaline Phosphatase 56 (38-126) U/L Albumin 2.6 L (3.5-5.1) g/dL <Joyce Be APRN - Last Filed: 08/11/24 10:41>
[2024-08-11 12:48] LABS: Glucose Point of Care 148 mg/dl (65-105)
--- NOTE | 2024-08-11 12:53 | PM.IMPN ---
Progress Note: A&P Assessment and Plan (1) Small bowel obstruction: Code(s): K56.609 - Unspecified intestinal obstruction, unspecified as to partial versus complete obstruction Status: Acute Assessment and Plan: Initially presented with SBO felt secondary to the left inguinal hernia, which was repaired on 08/03. Initially improved, but after trial of liquids and NG removal, she developed a severely distended stomach. She was taken back to surgery on 08/08 for concerns of bowel ischemia and was found to have suspected abdominal compartment syndrome and gastric outlet obstruction. As per GI patient has Hx of Marcos Fundoplication 20 years ago.Possibly endoscopy tomorrow. Patient initially admitted for incarcerated left inguinal hernia and underwent surgery on July,.Patient then had an exploratory laparotomy open gastrostomy tube placement on 08/08/2024 for gastric outlet obstruction suspected abdominal compartment syndrome. Patient continued to have complications and upper GI series 08/10/2024 showed significant esophageal reflux is also detected. Delayed passage of Gastrografin into the stomach, with external compression of the proximal stomach for which (likely) prior fundoplication is suspected. The oral contrast did not migrate out of the proximal stomach, for the duration of the examination. Significantly dilated loops of colon are also noted, as is air within the rectum. Status post 08/03 Open incarcerated left femoral hernia repair without mesh 08/08 Exploratory laparotomy, gastrostomy tube placement Management per General surgery NG tube cramped, LIS if needed Bowel rest Antibiotics as below Underwent upper GI series: Findings within the distal esophagus/proximal stomach for which prior fundoplication is suspected. Esophageal dysmotility and significant esophageal reflux is also detected. (2) Ileus, postoperative: Code(s): K91.89 - Other postprocedural complications and disorders of digestive system; K56.7 - Ileus, unspecified Status: Acute Assessment and Plan: See above (3) Incarcerated left inguinal hernia: Code(s): K40.30 - Unilateral inguinal hernia, with obstruction, without gangrene, not specified as recurrent Status: Acute Assessment and Plan: See above (4) EULALIO (acute kidney injury): Code(s): N17.9 - Acute kidney failure, unspecified Status: Acute Assessment and Plan: Creatinine improved with IV fluids. Hold further IV fluids to volume overload. Will give Lasix Monitor urine output electrolytes and creatinine (5) Sepsis: Code(s): A41.9 - Sepsis, unspecified organism Status: Acute Assessment and Plan: Continue Zosyn Un remark UA blood cultures pending Check procalcitonin 4.7 (6) Shock: Code(s): R57.9 - Shock, unspecified Status: Acute Assessment and Plan: Secondary to sepsis versus intravascular volume depletion. Improved and patient is now off of vasopressors Will hold further IV fluids (7) Seizures: Code(s): R56.9 - Unspecified convulsions Status: Chronic Assessment and Plan: Continue IV phenytoin (8) Electrolyte abnormality: Code(s): E87.8 - Other disorders of electrolyte and fluid balance, not elsewhere classified Status: Acute Assessment and Plan: Change fluids to half-normal saline Replace potassium magnesium and calcium (9) Pulmonary edema: Code(s): J81.1 - Chronic pulmonary edema Status: Acute Assessment and Plan: Chest x-ray shows pulmonary edema. Elevated BNP Echo reviewed Hold further fluids Will give Lasix IV Subjective Date/time seen: 08/11/24 12:53 Interval history: Evaluated the patient at bedside. Patient is better oriented today.Replenished potassium.Possible Endoscopy tomorrow. Review of Systems Review of Systems: All systems reviewed & are unremarkable except as noted in HPI and below (HPI) Exam Narrative: General: Frail old female who looks older than her age. She is awake and no significant distress Lungs/Chest: Trachea central Clear BS B/L, No crackles or wheezing. Mild tachypnea Cardiac: RRR. Normal S1 S2. No murmurs Circulation: The feet are warm Abdomen: Absent bowel sounds.. Mild tenderness to palpation, gastrostomy tube in place, incision under dressing Extremities: No clubbing or cyanosis, bilateral edema present : Khanna in place Neurologic: Follows commands. Moves all 4 extremities PERRL AO x3 Skin: No Rash Const: General: comfortable and no acute distress Other: The patient is recumbent in a stretcher in the PACU. , female, elderly, modestly ill-appearing. +fatigue. HENMT: Face/Nose/Sinus: Normal nares present Mouth: Yes dry mucous membranes Other: NG in place. Eyes: General: appearance normal, both eyes and all related structures Sclera: sclerae normal Pupils: Equal, round and reactive pupils present EOM: EOMs intact bilaterally Resp: Effort & Inspection: normal respiratory effort Auscultation: clear to auscultation bilaterally Cardio: Rate: regular rate Rhythm: regular rhythm Other: S1-S2 present without murmur, rub, ectopy GI: Other: Abdomen firm, distended. bowel sounds present, Drain in place, serosanguineous output. Skin: General skin exam: normal color and no rashes or lesions noted Wounds: no wounds Neuro: Cranial nerves: Yes Equal, round and reactive pupils present Speech: normal speech Motor exam (neuro): 5/5 motor strength present throughout Sensory Exam: normal sensation Other: A&O x4, mildly somnolent. Extrem: General: normal to inspection Psych: Mental Status: mental status grossly normal Affect: normal affect Other: Good insight and judgment, pleasant Objective Data Vital Signs Vital Signs: Vital Signs - 24 hr 08/10/24 14:00 08/10/24 14:00 08/10/24 16:00 Temperature 98.1 F Pulse Rate 76 74 77 Respiratory Rate 22 H 22 H Blood Pressure 126/89 121/65 Pulse Oximetry 94 96 Oxygen Delivery Oxygen Flow Rate Fraction of Inspired Oxygen 08/10/24 16:00 08/10/24 16:00 08/10/24 18:00 Temperature Pulse Rate 80 77 Respiratory Rate 22 H Blood Pressure 123/61 Pulse Oximetry 96 98 Oxygen Delivery Nasal Cannula Oxygen Flow Rate 2 Fraction of Inspired Oxygen 08/10/24 18:00 08/10/24 20:00 08/10/24 20:00 Temperature 98.6 F Pulse Rate 74 72 72 Respiratory Rate 23 H 23 H Blood Pressure 127/61 Pulse Oximetry 96 97 Oxygen Delivery Nasal Cannula Oxygen Flow Rate 2 Fraction of Inspired Oxygen 08/10/24 20:00 08/10/24 20:25 08/10/24 22:00 Temperature Pulse Rate 79 76 Respiratory Rate Blood Pressure Pulse Oximetry 97 Oxygen Delivery Nasal Cannula Oxygen Flow Rate 2 Fraction of Inspired Oxygen 08/10/24 23:06 08/11/24 00:00 08/11/24 04:00 Temperature Pulse Rate 72 68 66 Respiratory Rate 23 H 21 H 21 H Blood Pressure 123/65 116/61 Pulse Oximetry 97 96 97 Oxygen Delivery Nasal Cannula Oxygen Flow Rate 2 Fraction of Inspired Oxygen 08/11/24 04:00 08/11/24 08:00 08/11/24 08:00 Temperature Pulse Rate 72 72 85 Respiratory Rate 23 H 18 Blood Pressure Pulse Oximetry 97 100 Oxygen Delivery Nasal Cannula Nasal Cannula Oxygen Flow Rate 2 2 Fraction of Inspired Oxygen 28 28 08/11/24 08:00 08/11/24 09:09 08/11/24 09:37 Temperature 98.3 F Pulse Rate 72 Respiratory Rate 20 Blood Pressure 126/67 Pulse Oximetry 96 96 Oxygen Delivery Nasal Cannula Nasal Cannula Oxygen Flow Rate 2 2 Fraction of Inspired Oxygen 08/11/24 10:00 Temperature Pulse Rate 76 Respiratory Rate Blood Pressure Pulse Oximetry Oxygen Delivery Oxygen Flow Rate Fraction of Inspired Oxygen Intake/Output Intake/Output: Intake & Output 08/08/24 08/09/24 08/10/24 08/11/24 23:59 23:59 23:59 23:59 Intake Total 4088.7 1907.6 1137.0 100 Output Total 1535 4100 3025 1825 Balance 2553.7 -2192.4 -1888.0 -1725 Meds/Results Medications: Active Medications Generic Name Dose Route Start Last Admin Trade Name Freq PRN Reason Stop Dose Admin Dextrose 12.5 gm 08/09/24 07:57 Dextrose 50% 25 Gm/50 Ml Syringe IV PUSH PRN PRN Hypoglycemia Protocol Enoxaparin Sodium 40 mg 08/05/24 09:00 08/08/24 09:34 Enoxaparin 40 Mg/0.4 Ml Syringe SUB-Q 40 mg DAILY MORGAN Administration Glucagon 1 mg 08/09/24 07:57 Glucagon For Inj 1 Mg Vial IM PRN PRN Hypoglycemia Protocol Glucose 15 gm 08/09/24 07:57 Glucose Oral Gel 15 Gm Of Glucse In 37.5 Gm Tube PO PRN PRN Hypoglycemia Protocol Hydromorphone HCl 0.5 mg 08/09/24 11:55 08/09/24 20:16 Hydromorphone Hcl Inj (*Crx) 1 Mg/Ml Syr IV PUSH 0.5 mg Q2H PRN Administration Pain Rated 7-10 Ibuprofen 800 mg in 200 mls @ 400 mls/hr 08/08/24 05:45 08/09/24 09:06 Caldolor 800 Mg/200 Ml IVPB Infused Q6H PRN Infusion Breakthrough Pain Rated 1-3 or NPO Piperacillin/Tazobactam/Dextrose 3.375 gm in 50 mls @ 100 mls/hr 08/08/24 10:05 08/11/24 07:18 Zosyn 3.375 Gm/Ns 50 Ml IVPB Infused Q6HR MORGAN Infusion Dextrose 1,000 mls @ 100 mls/hr 08/09/24 07:57 Dextrose 5% 1,000 Ml IVPB PRN PRN Hypoglycemia Protocol Dextrose 1,000 mls @ 50 mls/hr 08/09/24 12:28 Dextrose 10% IV CONT .Q20H PRN if PN is interrupted Multivitamins 1.25 ml/ 1,002.5 mls @ 40 mls/hr 08/09/24 13:30 08/10/24 13:18 Multivitamins 1.25 ml/ Amino IV CONT 40 mls/hr Acids/Electrolytes/Dextrose .Q24H MORGAN Administration Protocol Fat Emulsion Intravenous 250 mls @ 20.833 mls/hr 08/09/24 13:30 08/10/24 13:18 Lipids 20% IVPB 20.83 mls/hr Q24H MORGAN Administration Potassium Chloride 100 mls @ 25 mls/hr 08/11/24 09:00 08/11/24 10:06 Kcl 40 Meq/Water 100 Ml IVPB 08/11/24 16:59 25 mls/hr Q4HR MORGAN Administration Insulin Aspart 2 - 5 units 08/09/24 12:00 08/11/24 12:49 Insulin Aspart (*Bkc) 100 Units/Ml SUB-Q Not Given Q6HR COUNT INCLUDES THE [facility] Protocol Lidocaine 1 patch 08/04/24 10:25 08/11/24 10:06 Lidocaine 5% Patch TRANSDERM 1 patch DAILY MORGAN Administration Miscellaneous Information 1 each 08/11/24 00:01 Clinamix Needs To Be Renewed Or It Will Automatically Discontinue. XX 09/10/24 00:00 CLARIFY MORGAN Naloxone HCl 0.1 mg 08/08/24 05:45 Naloxone Hcl 0.4 Mg/Ml Vial IV PUSH Q2M PRN Opiate Reversal Ondansetron HCl 4 mg 08/03/24 15:38 08/07/24 20:18 Ondansetron Inj 4 Mg/2 Ml Vial IV PUSH 4 mg Q4H PRN Administration Nausea Pantoprazole Sodium 40 mg 08/04/24 09:00 08/11/24 10:06 Pantoprazole Sodium Iv 40 Mg Vial IV PUSH 40 mg QAM MORGAN Administration Phenytoin Sodium 225 mg 08/07/24 21:15 08/11/24 10:06 Phenytoin Sod 250 Mg/5 Ml Vial (*Bkc) IV PUSH 225 mg Q12HR MORGAN Administration Sodium Chloride 20 ml 08/06/24 23:57 08/07/24 06:05 Central Line Flush IV PUSH 20 ml PRN PRN Administration after blood draws Sodium Chloride 10 ml 08/06/24 23:57 Central Line Flush IV PUSH PRN PRN with TPN bag changes Sodium Chloride 10 ml 08/07/24 06:00 08/11/24 07:59 Central Line Flush IV PUSH 10 ml Q8HR MORGAN Administration Radiology Results: ITS Impressions Abdomen X-Ray 08/08/24 05:43 Impression: NG tube in place, as above. Marked gaseous distention of several probable dilated small bowel loops. Correlate for small bowel obstruction versus ileus. Abdomen/Pelvis CT 08/08/24 06:07 Impression: Findings highly suspicious for extensive bowel ischemia, extensive small bowel and gastric pneumatosis and extensive portal venous gas. Extensive dilatation of small bowel loops and stomach with decompression of large bowel. Transition point not well delineated, but findings are highly suspicious for distal small bowel obstruction. NG tube tip at the GE junction. Further advancement of NG tube into the stomach is required for adequate placement. Small bilateral pleural effusions. Chest X-Ray 08/10/24 06:32 Impression: Central congestive change and probable mild bibasilar pulmonary edema. Support tubes, as above. Head CT 08/10/24 11:18 IMPRESSION: 1. Normal aging brain. Upper GI Series 08/10/24 13:27 IMPRESSION: Findings within the distal esophagus/proximal stomach for which prior fundoplication is suspected. Esophageal dysmotility and significant esophageal reflux is also detected. Labs Labs: Laboratory Results - last 24 hr 08/10/24 08/11/24 08/11/24 17:57 00:13 06:08 WBC 6.2 RBC 2.99 L Hgb 9.9 L Hct 29.4 L MCV 98.3 MCH 33.1 MCHC 33.7 RDW 13.8 Plt Count 60 L MPV 10.5 H Immature Gran % (Auto) Not Reportable Neut % (Auto) Not Reportable Lymph % (Auto) Not Reportable [place] % (Auto) Not Reportable Eos % (Auto) Not Reportable Baso % (Auto) Not Reportable Lymph # (Auto) Not Reportable [place] # (Auto) Not Reportable Eos # (Auto) Not Reportable Baso # (Auto) Not Reportable Abs Immat Gran (auto) Not Reportable Absolute Neuts (auto) Not Reportable Absolute Nucleated RBC Not Reportable Total Counted 100 Neutrophils % (Manual) 89 H Band Neutrophils % 4 Lymphocytes % (Manual) 6 L Monocytes % (Manual) 1 L Nucleated RBC % Not Reportable Abs Neuts (Manual) 5.76 Abs Lymphs (Manual) 0.37 L Abs Monocytes (Manual) 0.06 L Platelet Estimate Decreased % Immature Plt Fraction 3.4 Schistocytes None seen Sodium 141 Potassium 2.5 L* Chloride 103 Carbon Dioxide 32 H Anion Gap 6 BUN 22 H Creatinine 0.52 L Estim Creat Clear Calc Not Reportable Estimated GFR > 60 Glucose 138 H POC Capillary Glucose 126 H 140 H Calcium 7.7 L Phosphorus 2.7 Magnesium 1.9 Total Bilirubin 0.6 AST 24 ALT 37 H Alkaline Phosphatase 56 Total Protein 5.0 L Albumin 2.6 L 08/11/24 12:45 WBC RBC Hgb Hct MCV MCH MCHC RDW Plt Count MPV Immature Gran % (Auto) Neut % (Auto) Lymph % (Auto) [place] % (Auto) Eos % (Auto) Baso % (Auto) Lymph # (Auto) [place] # (Auto) Eos # (Auto) Baso # (Auto) Abs Immat Gran (auto) Absolute Neuts (auto) Absolute Nucleated RBC Total Counted Neutrophils % (Manual) Band Neutrophils % Lymphocytes % (Manual) Monocytes % (Manual) Nucleated RBC % Abs Neuts (Manual) Abs Lymphs (Manual) Abs Monocytes (Manual) Platelet Estimate % Immature Plt Fraction Schistocytes Sodium Potassium Chloride Carbon Dioxide Anion Gap BUN Creatinine Estim Creat Clear Calc Estimated GFR Glucose POC Capillary Glucose 148 H Calcium Phosphorus Magnesium Total Bilirubin AST ALT Alkaline Phosphatase Total Protein Albumin Quality VTE Prophylaxis VTE prophylaxis: mechanical ordered Hospitalist MIPS Advance Care Plan I have confirmed that the patient's Advanced Care Plan is present, code status is documented, or surrogate decision maker is listed in patient medical record.: Yes Medication Reconciliation I have utilized all available resources to obtain, update and review the patients current medications (includes all prescriptions, OTC, herbals, cannabis, and nutritional supplements).: Yes
--- NOTE | 2024-08-11 13:22 | P.PNGS_ITS ---
Progress Note: A&P Assessment and Plan (1) Gastric outlet obstruction: Code(s): K31.1 - Adult hypertrophic pyloric stenosis Status: Acute Assessment and Plan: * Unclear etiology. Her stomach was severely distended again after NG removal, which was present during admission as well. G-tube to gravity with about 300 cc out overnight. * Esophogram and UGI showed esophageal dysmotility with significant esophageal reflux, findings within the distal esophagus/proximal stomach for which prior fundoplication is suspected. * GI consulted and planning EGD. If EGD is pushed off to tomorrow due to her hypokalemia, she can try sips of clear liquids today and then made NPO after midnight for the EGD. Will clamp the G-tube with sips of clears and can put back to gravity if she develops any bloating or nausea. * Continue TPN (2) Small bowel obstruction: Code(s): K56.609 - Unspecified intestinal obstruction, unspecified as to partial versus complete obstruction Status: Acute Assessment and Plan: * Initially presented with SBO felt secondary to the left inguinal hernia, which was repaired. This initially improved, but after trial of liquids and NG removal, she developed a severely distended stomach. She was taken back to surgery for concerns of bowel ischemia and was found to have suspected abdominal compartment syndrome and gastric outlet obstruction. * Await return of bowel function, see plan above (3) Sepsis: Code(s): A41.9 - Sepsis, unspecified organism Status: Acute Assessment and Plan: * Continue IV antibiotics, no bowel ischemia during surgery, off vasopressors and remains stable, downgraded to IMU status (4) Incarcerated left inguinal hernia: Code(s): K40.30 - Unilateral inguinal hernia, with obstruction, without gangrene, not specified as recurrent Status: Acute Assessment and Plan: * Postop day 8 following open left inguinal hernia repair. Repair intact, incision healing well. Plan I have discussed the patient's case and plan of care with Dr. Peguero. Subjective Subjective Date/Time Seen: 08/11/24 13:22 Patient reports: flatus and no bowel movement Interval history: 08/03/24 - Open incarcerated left femoral hernia repair without mesh 08/08/24 - Exploratory laparotomy, open gastrostomy tube placement Patient seen in ICU but is IMU status. She states she feels tired and hurts all over , but when directly asked if she is having any abdominal pain she denies any. She is very thirsty and is fixated on drinking/eating. Her potassium was 2.5 this morning and per nursing her EGD is pushed to tomorrow due to the hypokalemia. She denies any other complaints at this time. Exam Const: General: comfortable and no acute distress Orientation/consciousness: patient oriented x3 GI: Inspection: incision (dry and whitley intact, no erythema) and other (mildly distended) GI Palp: Yes Soft to palpation, No Tenderness to palpation present (GI) and No Guarding due to palpation present (GI) Auscultation: Hypoactive bowel sounds present Objective Data Vital Signs Vital Signs: Vital Signs - 24 hr 08/10/24 14:00 08/10/24 14:00 08/10/24 16:00 Temperature 98.1 F Pulse Rate 76 74 77 Respiratory Rate 22 H 22 H Blood Pressure 126/89 121/65 Pulse Oximetry 94 96 Oxygen Delivery Oxygen Flow Rate Fraction of Inspired Oxygen 08/10/24 16:00 08/10/24 16:00 08/10/24 18:00 Temperature Pulse Rate 80 77 Respiratory Rate 22 H Blood Pressure 123/61 Pulse Oximetry 96 98 Oxygen Delivery Nasal Cannula Oxygen Flow Rate 2 Fraction of Inspired Oxygen 08/10/24 18:00 08/10/24 20:00 08/10/24 20:00 Temperature 98.6 F Pulse Rate 74 72 72 Respiratory Rate 23 H 23 H Blood Pressure 127/61 Pulse Oximetry 96 97 Oxygen Delivery Nasal Cannula Oxygen Flow Rate 2 Fraction of Inspired Oxygen 08/10/24 20:00 08/10/24 20:25 08/10/24 22:00 Temperature Pulse Rate 79 76 Respiratory Rate Blood Pressure Pulse Oximetry 97 Oxygen Delivery Nasal Cannula Oxygen Flow Rate 2 Fraction of Inspired Oxygen 08/10/24 23:06 08/11/24 00:00 08/11/24 04:00 Temperature Pulse Rate 72 68 66 Respiratory Rate 23 H 21 H 21 H Blood Pressure 123/65 116/61 Pulse Oximetry 97 96 97 Oxygen Delivery Nasal Cannula Oxygen Flow Rate 2 Fraction of Inspired Oxygen 08/11/24 04:00 08/11/24 08:00 08/11/24 08:00 Temperature Pulse Rate 72 72 85 Respiratory Rate 23 H 18 Blood Pressure Pulse Oximetry 97 100 Oxygen Delivery Nasal Cannula Nasal Cannula Oxygen Flow Rate 2 2 Fraction of Inspired Oxygen 28 28 08/11/24 08:00 08/11/24 09:09 08/11/24 09:37 Temperature 98.3 F Pulse Rate 72 Respiratory Rate 20 Blood Pressure 126/67 Pulse Oximetry 96 96 Oxygen Delivery Nasal Cannula Nasal Cannula Oxygen Flow Rate 2 2 Fraction of Inspired Oxygen 08/11/24 10:00 Temperature Pulse Rate 76 Respiratory Rate Blood Pressure Pulse Oximetry Oxygen Delivery Oxygen Flow Rate Fraction of Inspired Oxygen Intake/Output Intake/Output: Intake & Output 08/08/24 08/09/24 08/10/24 08/11/24 23:59 23:59 23:59 23:59 Intake Total 4088.7 1907.6 1137.0 100 Output Total 1535 4100 3025 1825 Balance 2553.7 -2192.4 -1888.0 -1725 Meds/Results Medications: Active Medications Generic Name Dose Route Start Last Admin Trade Name Freq PRN Reason Stop Dose Admin Dextrose 12.5 gm 08/09/24 07:57 Dextrose 50% 25 Gm/50 Ml Syringe IV PUSH PRN PRN Hypoglycemia Protocol Enoxaparin Sodium 40 mg 08/05/24 09:00 08/08/24 09:34 Enoxaparin 40 Mg/0.4 Ml Syringe SUB-Q 40 mg DAILY MORGAN Administration Glucagon 1 mg 08/09/24 07:57 Glucagon For Inj 1 Mg Vial IM PRN PRN Hypoglycemia Protocol Glucose 15 gm 08/09/24 07:57 Glucose Oral Gel 15 Gm Of Glucse In 37.5 Gm Tube PO PRN PRN Hypoglycemia Protocol Hydromorphone HCl 0.5 mg 08/09/24 11:55 08/09/24 20:16 Hydromorphone Hcl Inj (*Crx) 1 Mg/Ml Syr IV PUSH 0.5 mg Q2H PRN Administration Pain Rated 7-10 Ibuprofen 800 mg in 200 mls @ 400 mls/hr 08/08/24 05:45 08/09/24 09:06 Caldolor 800 Mg/200 Ml IVPB Infused Q6H PRN Infusion Breakthrough Pain Rated 1-3 or NPO Piperacillin/Tazobactam/Dextrose 3.375 gm in 50 mls @ 100 mls/hr 08/08/24 10:05 08/11/24 07:18 Zosyn 3.375 Gm/Ns 50 Ml IVPB Infused Q6HR MORGAN Infusion Dextrose 1,000 mls @ 100 mls/hr 08/09/24 07:57 Dextrose 5% 1,000 Ml IVPB PRN PRN Hypoglycemia Protocol Dextrose 1,000 mls @ 50 mls/hr 08/09/24 12:28 Dextrose 10% IV CONT .Q20H PRN if PN is interrupted Multivitamins 1.25 ml/ 1,002.5 mls @ 40 mls/hr 08/09/24 13:30 08/10/24 13:18 Multivitamins 1.25 ml/ Amino IV CONT 40 mls/hr Acids/Electrolytes/Dextrose .Q24H MORGAN Administration Protocol Fat Emulsion Intravenous 250 mls @ 20.833 mls/hr 08/09/24 13:30 08/10/24 13:18 Lipids 20% IVPB 20.83 mls/hr Q24H MORGAN Administration Potassium Chloride 100 mls @ 25 mls/hr 08/11/24 09:00 08/11/24 10:06 Kcl 40 Meq/Water 100 Ml IVPB 08/11/24 16:59 25 mls/hr Q4HR MORGAN Administration Insulin Aspart 2 - 5 units 08/09/24 12:00 08/11/24 12:49 Insulin Aspart (*Bkc) 100 Units/Ml SUB-Q Not Given Q6HR MORGAN Protocol Lidocaine 1 patch 08/04/24 10:25 08/11/24 10:06 Lidocaine 5% Patch TRANSDERM 1 patch DAILY MORGAN Administration Miscellaneous Information 1 each 08/11/24 00:01 Clinamix Needs To Be Renewed Or It Will Automatically Discontinue. XX 09/10/24 00:00 CLARIFY MORGAN Naloxone HCl 0.1 mg 08/08/24 05:45 Naloxone Hcl 0.4 Mg/Ml Vial IV PUSH Q2M PRN Opiate Reversal Ondansetron HCl 4 mg 08/03/24 15:38 08/07/24 20:18 Ondansetron Inj 4 Mg/2 Ml Vial IV PUSH 4 mg Q4H PRN Administration Nausea Pantoprazole Sodium 40 mg 08/04/24 09:00 08/11/24 10:06 Pantoprazole Sodium Iv 40 Mg Vial IV PUSH 40 mg QAM MORGAN Administration Phenytoin Sodium 225 mg 08/07/24 21:15 08/11/24 10:06 Phenytoin Sod 250 Mg/5 Ml Vial (*Bkc) IV PUSH 225 mg Q12HR MORGAN Administration Sodium Chloride 20 ml 08/06/24 23:57 08/07/24 06:05 Central Line Flush IV PUSH 20 ml PRN PRN Administration after blood draws Sodium Chloride 10 ml 08/06/24 23:57 Central Line Flush IV PUSH PRN PRN with TPN bag changes Sodium Chloride 10 ml 08/07/24 06:00 08/11/24 07:59 Central Line Flush IV PUSH 10 ml Q8HR MORGAN Administration Radiology Results: ITS Impressions Abdomen X-Ray 08/08/24 05:43 Impression: NG tube in place, as above. Marked gaseous distention of several probable dilated small bowel loops. Correlate for small bowel obstruction versus ileus. Abdomen/Pelvis CT 08/08/24 06:07 Impression: Findings highly suspicious for extensive bowel ischemia, extensive small bowel and gastric pneumatosis and extensive portal venous gas. Extensive dilatation of small bowel loops and stomach with decompression of large bowel. Transition point not well delineated, but findings are highly suspicious for distal small bowel obstruction. NG tube tip at the GE junction. Further advancement of NG tube into the stomach is required for adequate placement. Small bilateral pleural effusions. Chest X-Ray 08/10/24 06:32 Impression: Central congestive change and probable mild bibasilar pulmonary edema. Support tubes, as above. Head CT 08/10/24 11:18 IMPRESSION: 1. Normal aging brain. Upper GI Series 08/10/24 13:27 IMPRESSION: Findings within the distal esophagus/proximal stomach for which prior fundoplication is suspected. Esophageal dysmotility and significant esophageal reflux is also detected. Labs Labs: Laboratory Results - last 24 hr 08/10/24 08/11/24 08/11/24 17:57 00:13 06:08 WBC 6.2 RBC 2.99 L Hgb 9.9 L Hct 29.4 L MCV 98.3 MCH 33.1 MCHC 33.7 RDW 13.8 Plt Count 60 L MPV 10.5 H Immature Gran % (Auto) Not Reportable Neut % (Auto) Not Reportable Lymph % (Auto) Not Reportable [place] % (Auto) Not Reportable Eos % (Auto) Not Reportable Baso % (Auto) Not Reportable Lymph # (Auto) Not Reportable [place] # (Auto) Not Reportable Eos # (Auto) Not Reportable Baso # (Auto) Not Reportable Abs Immat Gran (auto) Not Reportable Absolute Neuts (auto) Not Reportable Absolute Nucleated RBC Not Reportable Total Counted 100 Neutrophils % (Manual) 89 H Band Neutrophils % 4 Lymphocytes % (Manual) 6 L Monocytes % (Manual) 1 L Nucleated RBC % Not Reportable Abs Neuts (Manual) 5.76 Abs Lymphs (Manual) 0.37 L Abs Monocytes (Manual) 0.06 L Platelet Estimate Decreased % Immature Plt Fraction 3.4 Schistocytes None seen Sodium 141 Potassium 2.5 L* Chloride 103 Carbon Dioxide 32 H Anion Gap 6 BUN 22 H Creatinine 0.52 L Estim Creat Clear Calc Not Reportable Estimated GFR > 60 Glucose 138 H POC Capillary Glucose 126 H 140 H Calcium 7.7 L Phosphorus 2.7 Magnesium 1.9 Total Bilirubin 0.6 AST 24 ALT 37 H Alkaline Phosphatase 56 Total Protein 5.0 L Albumin 2.6 L 08/11/24 12:45 WBC RBC Hgb Hct MCV MCH MCHC RDW Plt Count MPV Immature Gran % (Auto) Neut % (Auto) Lymph % (Auto) [place] % (Auto) Eos % (Auto) Baso % (Auto) Lymph # (Auto) [place] # (Auto) Eos # (Auto) Baso # (Auto) Abs Immat Gran (auto) Absolute Neuts (auto) Absolute Nucleated RBC Total Counted Neutrophils % (Manual) Band Neutrophils % Lymphocytes % (Manual) Monocytes % (Manual) Nucleated RBC % Abs Neuts (Manual) Abs Lymphs (Manual) Abs Monocytes (Manual) Platelet Estimate % Immature Plt Fraction Schistocytes Sodium Potassium Chloride Carbon Dioxide Anion Gap BUN Creatinine Estim Creat Clear Calc Estimated GFR Glucose POC Capillary Glucose 148 H Calcium Phosphorus Magnesium Total Bilirubin AST ALT Alkaline Phosphatase Total Protein Albumin
[2024-08-11] MEDS: AMINO ACIDS 5%/D15W/E-LYTES/CA 1,000 ML with MULTIVITAMINS-12 INJ VIAL 1 1.25 ML, MULTI... 40 ML IV CONT (13:58)
[2024-08-11] MEDS: FAT EMULSIONS IV 20% 250 ML 20.83 ML IVPB (14:06)
[2024-08-11 17:52] LABS: Glucose Point of Care 113 mg/dl (65-105)
[2024-08-11] MEDS: IBUPROFEN IV 800 MG/200 ML 800 MG/200 ML BAG 400 MG IVPB (18:48)
[2024-08-11 21:34] LABS: Potassium 3.4 mmol/L (3.4-5.0)
[2024-08-12] VITALS (16 sets, daily range): BP systolic 102–137; BP diastolic 55–83; PULSE 72–98; RESP 16–24; TEMP 36.5–37.1; O2SAT 95–100
[2024-08-12] MEDS: PIPERACILLN/TAZ 3.375GM/NS50ML 3.375 GM/50 ML BAG IVPB ×5 (00:49→23:37)
[2024-08-12 01:41] LABS: Glucose Point of Care 143 mg/dl (65-105)
[2024-08-12 05:31] LABS: Hemoglobin 10.5 g/dL (12.0-15.0); Immature Platelet Fraction Pct 3.5 % (0.9-11.2); Mean Corpuscular HGB Conc 33.9 g/dl (32-36); Mean Corpuscular Hemoglobin 33.4 pg (26-34); Mean Corpuscular Volume 98.7 fl (80-100); Mean Platelet Volume 10.3 fl (7.4-10.4); Platelet Count Result 71 k/mm3 (150-375); Red Blood Count 3.14 M/mm3 (4.2-5.4); Red Cell Distribution Width 13.8 % (11.5-14.5); White Blood Count 8.7 K/mm3 (4.5-10.0)
[2024-08-12 05:40] LABS: Alanine Aminotransferase 34 U/L (6-35); Albumin Level 2.6 g/dL (3.5-5.1); Alkaline Phosphatase 60 U/L (38-126); Anion Gap 5 mmol/L (4-12); Aspartate Amino Transferase 25 U/L (14-36); Bilirubin,Total 0.6 mg/dL (0.2-1.3); Blood Urea Nitrogen 29 mg/dL (7-17); Calcium 7.8 mg/dL (8.4-10.2); Carbon Dioxide 30 mmol/L (22-30); Chloride 104 mmol/L (98-107); Estimated Glomerular Filt Rate > 60; Glucose 120 mg/dL (65-110); Magnesium 2.1 mg/dL (1.6-2.3); Phosphorus 3.4 mg/dL (2.5-4.5); Potassium 3.4 mmol/L (3.4-5.0); Sodium 139 mmol/L (137-145)
[2024-08-12] MEDS: CENTRAL LINE FLUSH 10 ML IV PUSH ×3 (06:17→23:39)
[2024-08-12] MEDS: KCL 40 MEQ/WATER 100 ML 100 ML 25 ML IVPB (09:00)
[2024-08-12] MEDS: PHENYTOIN SOD 250 MG/5 ML 225 MG IV PUSH ×2 (09:00→20:27)
[2024-08-12] MEDS: PANTOPRAZOLE SODIUM IV 40 MG VIAL IV PUSH ×2 (09:00→20:26)
[2024-08-12] MEDS: LIDOCAINE 5% PATCH 1 PATCH TRANSDERM (09:00)
--- NOTE | 2024-08-12 11:25 | PM.PNGS ---
Progress Note: A&P Assessment and Plan (1) Gastric outlet obstruction: Code(s): K31.1 - Adult hypertrophic pyloric stenosis Status: Acute Assessment and Plan: Unclear etiology. Her stomach was severely distended again after NG removal, which was present during admission as well. G-tube clamped for EGD today. Esophogram and UGI showed esophageal dysmotility with significant esophageal reflux, findings within the distal esophagus/proximal stomach for which prior fundoplication is suspected. GI consulted and planning EGD. Diet can be started based on GI findings and recommendations. Continue TPN (2) Small bowel obstruction: Code(s): K56.609 - Unspecified intestinal obstruction, unspecified as to partial versus complete obstruction Status: Acute Assessment and Plan: Initially presented with SBO felt secondary to the left inguinal hernia, which was repaired. This initially improved, but after trial of liquids and NG removal, she developed a severely distended stomach. She was taken back to surgery for concerns of bowel ischemia and was found to have suspected abdominal compartment syndrome and gastric outlet obstruction. Await return of bowel function, see plan above (3) Sepsis: Code(s): A41.9 - Sepsis, unspecified organism Status: Acute Assessment and Plan: Continue IV antibiotics, no bowel ischemia during surgery, off vasopressors and remains stable, downgraded to Med/Surg. (4) Incarcerated left inguinal hernia: Code(s): K40.30 - Unilateral inguinal hernia, with obstruction, without gangrene, not specified as recurrent Status: Acute Assessment and Plan: Postop day 8 following open left inguinal hernia repair. Repair intact, incision healing well. Subjective Subjective Date/Time Seen: 08/12/24 11:25 Interval history: Feeling weak. Pain controlled. Breathing stable. Awaiting EGD today. Exam GI: Inspection: incision (intact with whitley) and other (G-tube intact) GI Palp: Yes Soft to palpation, Yes Tenderness to palpation present (GI) (minimal incisional) and No Guarding due to palpation present (GI) Auscultation: normal bowel sounds Other: Mildly distended but soft Objective Data Vital Signs Vital Signs: Vital Signs - 24 hr 08/11/24 12:00 08/11/24 12:00 08/11/24 12:00 Temperature 98.7 F Pulse Rate 85 78 78 Respiratory Rate 17 17 Blood Pressure 121/66 Pulse Oximetry 100 98 Oxygen Delivery Nasal Cannula Oxygen Flow Rate 2 Fraction of Inspired Oxygen 28 08/11/24 16:00 08/11/24 16:00 08/11/24 16:00 Temperature 98.2 F Pulse Rate 77 77 78 Respiratory Rate 21 H 18 Blood Pressure 99/56 L Pulse Oximetry 98 100 Oxygen Delivery Nasal Cannula Oxygen Flow Rate 2 Fraction of Inspired Oxygen 08/11/24 18:00 08/11/24 20:00 08/11/24 20:00 Temperature 98.7 F Pulse Rate 82 82 79 Respiratory Rate 18 22 H Blood Pressure 117/62 Pulse Oximetry 100 97 Oxygen Delivery Nasal Cannula Oxygen Flow Rate 1 Fraction of Inspired Oxygen 28 08/11/24 20:00 08/11/24 22:00 08/12/24 00:00 Temperature Pulse Rate 75 76 82 Respiratory Rate 18 Blood Pressure Pulse Oximetry 100 Oxygen Delivery Nasal Cannula Oxygen Flow Rate 1 Fraction of Inspired Oxygen 28 08/12/24 00:00 08/12/24 00:00 08/12/24 02:00 Temperature 98.8 F Pulse Rate 78 78 72 Respiratory Rate 22 H Blood Pressure 111/61 Pulse Oximetry 97 Oxygen Delivery Oxygen Flow Rate Fraction of Inspired Oxygen 08/12/24 04:00 08/12/24 04:00 08/12/24 04:00 Temperature 98.6 F Pulse Rate 82 73 73 Respiratory Rate 18 19 Blood Pressure 118/57 L Pulse Oximetry 100 98 Oxygen Delivery Nasal Cannula Oxygen Flow Rate 1 Fraction of Inspired Oxygen 08/12/24 06:00 08/12/24 08:00 08/12/24 09:15 Temperature 97.7 F Pulse Rate 77 78 Respiratory Rate 22 H Blood Pressure 107/60 Pulse Oximetry 98 98 Oxygen Delivery Nasal Cannula Oxygen Flow Rate 1 Fraction of Inspired Oxygen 08/12/24 09:25 Temperature Pulse Rate Respiratory Rate Blood Pressure Pulse Oximetry 95 Oxygen Delivery Room Air Oxygen Flow Rate Fraction of Inspired Oxygen Intake/Output Intake/Output: Intake & Output 08/09/24 08/10/24 08/11/24 08/12/24 23:59 23:59 23:59 23:59 Intake Total 1907.6 1137.0 1586.7 50 Output Total 4100 3025 2475 300 Balance -2192.4 -1888.0 -888.3 -250 Meds/Results Medications: Active Medications Generic Name Dose Route Start Last Admin Trade Name Freq PRN Reason Stop Dose Admin Dextrose 12.5 gm 08/09/24 07:57 Dextrose 50% 25 Gm/50 Ml Syringe IV PUSH PRN PRN Hypoglycemia Protocol Enoxaparin Sodium 40 mg 08/05/24 09:00 08/08/24 09:34 Enoxaparin 40 Mg/0.4 Ml Syringe SUB-Q 40 mg DAILY MORGAN Administration Glucagon 1 mg 08/09/24 07:57 Glucagon For Inj 1 Mg Vial IM PRN PRN Hypoglycemia Protocol Glucose 15 gm 08/09/24 07:57 Glucose Oral Gel 15 Gm Of Glucse In 37.5 Gm Tube PO PRN PRN Hypoglycemia Protocol Hydromorphone HCl 0.5 mg 08/09/24 11:55 08/09/24 20:16 Hydromorphone Hcl Inj (*Crx) 1 Mg/Ml Syr IV PUSH 0.5 mg Q2H PRN Administration Pain Rated 7-10 Ibuprofen 800 mg in 200 mls @ 400 mls/hr 08/08/24 05:45 08/11/24 18:48 Caldolor 800 Mg/200 Ml IVPB 400 mls/hr Q6H PRN Administration Breakthrough Pain Rated 1-3 or NPO Piperacillin/Tazobactam/Dextrose 3.375 gm in 50 mls @ 100 mls/hr 08/08/24 10:05 08/12/24 05:16 Zosyn 3.375 Gm/Ns 50 Ml IVPB 100 mls/hr Q6HR MORGAN Administration Dextrose 1,000 mls @ 100 mls/hr 08/09/24 07:57 Dextrose 5% 1,000 Ml IVPB PRN PRN Hypoglycemia Protocol Dextrose 1,000 mls @ 50 mls/hr 08/09/24 12:28 Dextrose 10% IV CONT .Q20H PRN if PN is interrupted Multivitamins 1.25 ml/ 1,002.5 mls @ 40 mls/hr 08/09/24 13:30 08/11/24 13:58 Multivitamins 1.25 ml/ Amino IV CONT 40 mls/hr Acids/Electrolytes/Dextrose .Q24H MORGAN Administration Protocol Fat Emulsion Intravenous 250 mls @ 20.833 mls/hr 08/09/24 13:30 08/11/24 14:06 Lipids 20% IVPB 20.83 mls/hr Q24H MORGAN Administration Insulin Aspart 2 - 5 units 08/09/24 12:00 08/12/24 06:15 Insulin Aspart (*Bkc) 100 Units/Ml SUB-Q Not Given Q6HR [facility] Protocol Lidocaine 1 patch 08/04/24 10:25 08/12/24 09:00 Lidocaine 5% Patch TRANSDERM 1 patch DAILY MORGAN Administration Miscellaneous Information 1 each 08/12/24 00:01 Clinamix Needs To Be Renewed Or It Will Automatically Discontinue. XX 09/11/24 00:00 CLARIFY MORGAN Naloxone HCl 0.1 mg 08/08/24 05:45 Naloxone Hcl 0.4 Mg/Ml Vial IV PUSH Q2M PRN Opiate Reversal Ondansetron HCl 4 mg 08/03/24 15:38 08/07/24 20:18 Ondansetron Inj 4 Mg/2 Ml Vial IV PUSH 4 mg Q4H PRN Administration Nausea Pantoprazole Sodium 40 mg 08/04/24 09:00 08/12/24 09:00 Pantoprazole Sodium Iv 40 Mg Vial IV PUSH 40 mg QAM MORGAN Administration Phenytoin Sodium 225 mg 08/07/24 21:15 08/12/24 09:00 Phenytoin Sod 250 Mg/5 Ml Vial (*Bkc) IV PUSH 225 mg Q12HR MORGAN Administration Sodium Chloride 20 ml 08/06/24 23:57 08/07/24 06:05 Central Line Flush IV PUSH 20 ml PRN PRN Administration after blood draws Sodium Chloride 10 ml 08/06/24 23:57 Central Line Flush IV PUSH PRN PRN with TPN bag changes Sodium Chloride 10 ml 08/07/24 06:00 08/12/24 06:17 Central Line Flush IV PUSH 10 ml Q8HR MORGAN Administration Radiology Results: ITS Impressions Abdomen X-Ray 08/08/24 05:43 Impression: NG tube in place, as above. Marked gaseous distention of several probable dilated small bowel loops. Correlate for small bowel obstruction versus ileus. Abdomen/Pelvis CT 08/08/24 06:07 Impression: Findings highly suspicious for extensive bowel ischemia, extensive small bowel and gastric pneumatosis and extensive portal venous gas. Extensive dilatation of small bowel loops and stomach with decompression of large bowel. Transition point not well delineated, but findings are highly suspicious for distal small bowel obstruction. NG tube tip at the GE junction. Further advancement of NG tube into the stomach is required for adequate placement. Small bilateral pleural effusions. Chest X-Ray 08/10/24 06:32 Impression: Central congestive change and probable mild bibasilar pulmonary edema. Support tubes, as above. Head CT 08/10/24 11:18 IMPRESSION: 1. Normal aging brain. Upper GI Series 08/10/24 13:27 IMPRESSION: Findings within the distal esophagus/proximal stomach for which prior fundoplication is suspected. Esophageal dysmotility and significant esophageal reflux is also detected. Labs Labs: Laboratory Results - last 24 hr 08/11/24 08/11/24 08/11/24 12:45 17:29 21:22 WBC RBC Hgb Hct MCV MCH MCHC RDW Plt Count MPV % Immature Plt Fraction Sodium Potassium 3.4 Chloride Carbon Dioxide Anion Gap BUN Creatinine Estim Creat Clear Calc Estimated GFR Glucose POC Capillary Glucose 148 H 113 H Calcium Phosphorus Magnesium Total Bilirubin AST ALT Alkaline Phosphatase Total Protein Albumin 08/12/24 08/12/24 01:38 05:19 WBC 8.7 RBC 3.14 L Hgb 10.5 L Hct 31.0 L MCV 98.7 MCH 33.4 MCHC 33.9 RDW 13.8 Plt Count 71 L MPV 10.3 % Immature Plt Fraction 3.5 Sodium 139 Potassium 3.4 Chloride 104 Carbon Dioxide 30 Anion Gap 5 BUN 29 H Creatinine 0.50 L Estim Creat Clear Calc Not Reportable Estimated GFR > 60 Glucose 120 H POC Capillary Glucose 143 H Calcium 7.8 L Phosphorus 3.4 Magnesium 2.1 Total Bilirubin 0.6 AST 25 ALT 34 Alkaline Phosphatase 60 Total Protein 5.0 L Albumin 2.6 L
--- NOTE | 2024-08-12 11:40 | PCNFU ---
Nutrition Follow-Up Complete: Altered GI function as related to SBO/Ileus as evidenced by TPN. Goal:Meet estimated nutritional needs. Patient will continue current goal. Pt current nutrition is TPN at 40 ml/hr plans to advance to 50 ml/hr. Last recorded weight is 57.8 kg, stable Bowel Motility: +BM reported 08/07 Labs Reviewed:Glu 120, BUN 29, Cr 0.5, Alb 2.6 Meds Noted: Clinimix E 5/15 at 50 ml/hr, 250 ml of 20% Lipid Emulsion, Protonix, Zosyn, Lovenox. Skin: WNL Additional Notes: Patient remains on TPN advancing to 50 ml/hr today, providing 1352 kcal/60 gm protein. TPN is meeting 94% kcal needs at 25 kcal/kg and 100% protein needs at 1.0-1.2 gm/kg. Plans for EGD today. Agree with diet orders. Will monitor weight, labs, skin, diet orders, meds every Thursday and Thursday.
[2024-08-12] MEDS: HYDROmorphone HCL INJ (*CRX) 1 MG/ML SYR 0.5 MG IV PUSH (11:56)
[2024-08-12 12:05] LABS: Glucose Point of Care 126 mg/dl (65-105)
[2024-08-12 13:27] LABS: Triglycerides 84 mg/dL (<150)
--- NOTE | 2024-08-12 13:50 | PM.IMPN ---
Progress Note: A&P Assessment and Plan (1) Small bowel obstruction: Code(s): K56.609 - Unspecified intestinal obstruction, unspecified as to partial versus complete obstruction Status: Acute Assessment and Plan: Status post 08/03 Open incarcerated left femoral hernia repair without mesh 08/08 Exploratory laparotomy, gastrostomy tube placement Management per General surgery NG tube in place to suction Bowel rest On Zosyn GI was consulted, EGD today on 08/12/2024 (2) Ileus, postoperative: Code(s): K91.89 - Other postprocedural complications and disorders of digestive system; K56.7 - Ileus, unspecified Status: Acute Assessment and Plan: See above (3) Incarcerated left inguinal hernia: Code(s): K40.30 - Unilateral inguinal hernia, with obstruction, without gangrene, not specified as recurrent Status: Acute Assessment and Plan: See above (4) EULALIO (acute kidney injury): Code(s): N17.9 - Acute kidney failure, unspecified Status: Acute Assessment and Plan: Creatinine improved with IV fluids. Hold further IV fluids to volume overload. Monitor urine output electrolytes and creatinine (5) Sepsis: Code(s): A41.9 - Sepsis, unspecified organism Status: Acute Assessment and Plan: Continue Zosyn per surgery UA was unremarkable 08/08: blood cultures are negative so far (6) Shock: Code(s): R57.9 - Shock, unspecified Status: Acute Assessment and Plan: Secondary to sepsis versus intravascular volume depletion. Improved and patient is now off of vasopressors Will hold further IV fluids (7) Seizures: Code(s): R56.9 - Unspecified convulsions Status: Chronic Assessment and Plan: Continue IV phenytoin (8) Electrolyte abnormality: Code(s): E87.8 - Other disorders of electrolyte and fluid balance, not elsewhere classified Status: Acute Assessment and Plan: Replace potassium (9) Pulmonary edema: Code(s): J81.1 - Chronic pulmonary edema Status: Acute Assessment and Plan: Chest x-ray shows pulmonary edema. Elevated BNP Echo reviewed Hold further fluids Plan DVT prophylaxis -hold Lovenox due to thrombocytopenia, SCD Stress ulcer prophylaxis -Protonix Nutrition -TPN Code Status - Full Code Due to a high probability of clinically significant, life threatening deterioration, the patient required my highest level of preparedness to intervene emergently and I personally spent this critical care time directly and personally managing the patient. This critical care time included obtaining a history; examining the patient; pulse oximetry; ordering and review of studies; arranging urgent treatment with development of a management plan; evaluation of patient's response to treatment; frequent reassessment; and discussions with other providers. It was exclusive of separately billable procedures and treating other patients and teaching time. Please see Assessment and Plan section and the rest of the note for further information on patient assessment and treatment Subjective Date/time seen: 08/12/24 13:50 Interval history: 08/03 Open incarcerated left femoral hernia repair without mesh 08/08 Exploratory laparotomy, gastrostomy tube placement 08/12/2024: Patient seen and examined for the hospitalist group Patient complains of generalized weakness, pain is controlled, denies any chest pain, shortness of breath, nausea vomiting. Is awaiting for an EGD today, afebrile, adequate urine output, hemodynamically stable Review of Systems Review of Systems: All systems reviewed & are unremarkable except as noted in HPI and below (HPI) Exam Narrative: General: Frail old female who looks older than her age. She is awake and no significant distress Lungs/Chest: Trachea central Clear BS B/L, No crackles or wheezing. Cardiac: RRR. Normal S1 S2. No murmurs Circulation: Palpable pedal pulses, feet are warm Abdomen: Hypoactive bowel sound. Mild tenderness to palpation, gastrostomy tube in place, incision under dressing Extremities: No clubbing or cyanosis, bilateral edema present : Khanna in place Neurologic: Follows commands. Moves all 4 extremities PERRL AO x3 Skin: No Rash Objective Data Vital Signs Vital Signs: Vital Signs - 24 hr 08/11/24 16:00 08/11/24 16:00 08/11/24 16:00 Temperature 98.2 F Pulse Rate 77 77 78 Respiratory Rate 21 H 18 Blood Pressure 99/56 L Pulse Oximetry 98 100 Oxygen Delivery Nasal Cannula Oxygen Flow Rate 2 Fraction of Inspired Oxygen 08/11/24 18:00 08/11/24 20:00 08/11/24 20:00 Temperature 98.7 F Pulse Rate 82 82 79 Respiratory Rate 18 22 H Blood Pressure 117/62 Pulse Oximetry 100 97 Oxygen Delivery Nasal Cannula Oxygen Flow Rate 1 Fraction of Inspired Oxygen 28 08/11/24 20:00 08/11/24 22:00 08/12/24 00:00 Temperature Pulse Rate 75 76 82 Respiratory Rate 18 Blood Pressure Pulse Oximetry 100 Oxygen Delivery Nasal Cannula Oxygen Flow Rate 1 Fraction of Inspired Oxygen 28 08/12/24 00:00 08/12/24 00:00 08/12/24 02:00 Temperature 98.8 F Pulse Rate 78 78 72 Respiratory Rate 22 H Blood Pressure 111/61 Pulse Oximetry 97 Oxygen Delivery Oxygen Flow Rate Fraction of Inspired Oxygen 08/12/24 04:00 08/12/24 04:00 08/12/24 04:00 Temperature 98.6 F Pulse Rate 82 73 73 Respiratory Rate 18 19 Blood Pressure 118/57 L Pulse Oximetry 100 98 Oxygen Delivery Nasal Cannula Oxygen Flow Rate 1 Fraction of Inspired Oxygen 28 08/12/24 06:00 08/12/24 08:00 08/12/24 08:00 Temperature 97.7 F Pulse Rate 77 78 Respiratory Rate 22 H Blood Pressure 107/60 Pulse Oximetry 98 99 Oxygen Delivery Nasal Cannula Oxygen Flow Rate 1 Fraction of Inspired Oxygen 08/12/24 09:15 08/12/24 09:25 Temperature Pulse Rate Respiratory Rate Blood Pressure Pulse Oximetry 98 95 Oxygen Delivery Nasal Cannula Room Air Oxygen Flow Rate 1 Fraction of Inspired Oxygen Intake/Output Intake/Output: Intake & Output 08/09/24 08/10/24 08/11/24 08/12/24 23:59 23:59 23:59 23:59 Intake Total 1907.6 1137.0 1586.7 250 Output Total 4100 3025 2475 300 Balance -2192.4 -1888.0 -888.3 -50 Meds/Results Medications: Active Medications Generic Name Dose Route Start Last Admin Trade Name Freq PRN Reason Stop Dose Admin Dextrose 12.5 gm 08/09/24 07:57 Dextrose 50% 25 Gm/50 Ml Syringe IV PUSH PRN PRN Hypoglycemia Protocol Enoxaparin Sodium 40 mg 08/05/24 09:00 08/08/24 09:34 Enoxaparin 40 Mg/0.4 Ml Syringe SUB-Q 40 mg DAILY MORGAN Administration Glucagon 1 mg 08/09/24 07:57 Glucagon For Inj 1 Mg Vial IM PRN PRN Hypoglycemia Protocol Glucose 15 gm 08/09/24 07:57 Glucose Oral Gel 15 Gm Of Glucse In 37.5 Gm Tube PO PRN PRN Hypoglycemia Protocol Hydromorphone HCl 0.5 mg 08/09/24 11:55 08/12/24 11:56 Hydromorphone Hcl Inj (*Crx) 1 Mg/Ml Syr IV PUSH 0.5 mg Q2H PRN Administration Pain Rated 7-10 Ibuprofen 800 mg in 200 mls @ 400 mls/hr 08/08/24 05:45 08/11/24 18:48 Caldolor 800 Mg/200 Ml IVPB 400 mls/hr Q6H PRN Administration Breakthrough Pain Rated 1-3 or NPO Piperacillin/Tazobactam/Dextrose 3.375 gm in 50 mls @ 100 mls/hr 08/08/24 10:05 08/12/24 12:23 Zosyn 3.375 Gm/Ns 50 Ml IVPB Infused Q6HR MORGAN Infusion Dextrose 1,000 mls @ 100 mls/hr 08/09/24 07:57 Dextrose 5% 1,000 Ml IVPB PRN PRN Hypoglycemia Protocol Dextrose 1,000 mls @ 50 mls/hr 08/09/24 12:28 Dextrose 10% IV CONT .Q20H PRN if PN is interrupted Multivitamins 1.25 ml/ 1,002.5 mls @ 50 mls/hr 08/09/24 13:30 08/11/24 13:58 Multivitamins 1.25 ml/ Amino IV CONT 40 mls/hr Acids/Electrolytes/Dextrose .Q20H3M MORGAN Administration Protocol Fat Emulsion Intravenous 250 mls @ 20.833 mls/hr 08/09/24 13:30 08/11/24 14:06 Lipids 20% IVPB 20.83 mls/hr Q24H MORGAN Administration Insulin Aspart 2 - 5 units 08/09/24 12:00 08/12/24 11:53 Insulin Aspart (*Bkc) 100 Units/Ml SUB-Q Not Given Q6HR [facility] Protocol Lidocaine 1 patch 08/04/24 10:25 08/12/24 09:00 Lidocaine 5% Patch TRANSDERM 1 patch DAILY MORGAN Administration Miscellaneous Information 1 each 08/12/24 00:01 Clinamix Needs To Be Renewed Or It Will Automatically Discontinue. XX 09/11/24 00:00 CLARIFY MORGAN Naloxone HCl 0.1 mg 08/08/24 05:45 Naloxone Hcl 0.4 Mg/Ml Vial IV PUSH Q2M PRN Opiate Reversal Ondansetron HCl 4 mg 08/03/24 15:38 08/07/24 20:18 Ondansetron Inj 4 Mg/2 Ml Vial IV PUSH 4 mg Q4H PRN Administration Nausea Pantoprazole Sodium 40 mg 08/04/24 09:00 08/12/24 09:00 Pantoprazole Sodium Iv 40 Mg Vial IV PUSH 40 mg QAM MORGAN Administration Phenytoin Sodium 225 mg 08/07/24 21:15 08/12/24 09:00 Phenytoin Sod 250 Mg/5 Ml Vial (*Bkc) IV PUSH 225 mg Q12HR MORGAN Administration Sodium Chloride 20 ml 08/06/24 23:57 08/07/24 06:05 Central Line Flush IV PUSH 20 ml PRN PRN Administration after blood draws Sodium Chloride 10 ml 08/06/24 23:57 Central Line Flush IV PUSH PRN PRN with TPN bag changes Sodium Chloride 10 ml 08/07/24 06:00 08/12/24 06:17 Central Line Flush IV PUSH 10 ml Q8HR MORGAN Administration Radiology Results: ITS Impressions Abdomen X-Ray 08/08/24 05:43 Impression: NG tube in place, as above. Marked gaseous distention of several probable dilated small bowel loops. Correlate for small bowel obstruction versus ileus. Abdomen/Pelvis CT 08/08/24 06:07 Impression: Findings highly suspicious for extensive bowel ischemia, extensive small bowel and gastric pneumatosis and extensive portal venous gas. Extensive dilatation of small bowel loops and stomach with decompression of large bowel. Transition point not well delineated, but findings are highly suspicious for distal small bowel obstruction. NG tube tip at the GE junction. Further advancement of NG tube into the stomach is required for adequate placement. Small bilateral pleural effusions. Chest X-Ray 08/10/24 06:32 Impression: Central congestive change and probable mild bibasilar pulmonary edema. Support tubes, as above. Head CT 08/10/24 11:18 IMPRESSION: 1. Normal aging brain. Upper GI Series 08/10/24 13:27 IMPRESSION: Findings within the distal esophagus/proximal stomach for which prior fundoplication is suspected. Esophageal dysmotility and significant esophageal reflux is also detected. Labs Labs: Laboratory Results - last 24 hr 08/11/24 08/11/24 08/12/24 17:29 21:22 01:38 WBC RBC Hgb Hct MCV MCH MCHC RDW Plt Count MPV % Immature Plt Fraction Sodium Potassium 3.4 Chloride Carbon Dioxide Anion Gap BUN Creatinine Estim Creat Clear Calc Estimated GFR Glucose POC Capillary Glucose 113 H 143 H Calcium Phosphorus Magnesium Total Bilirubin AST ALT Alkaline Phosphatase Total Protein Albumin Triglycerides 08/12/24 08/12/24 05:19 11:52 WBC 8.7 RBC 3.14 L Hgb 10.5 L Hct 31.0 L MCV 98.7 MCH 33.4 MCHC 33.9 RDW 13.8 Plt Count 71 L MPV 10.3 % Immature Plt Fraction 3.5 Sodium 139 Potassium 3.4 Chloride 104 Carbon Dioxide 30 Anion Gap 5 BUN 29 H Creatinine 0.50 L Estim Creat Clear Calc Not Reportable Estimated GFR > 60 Glucose 120 H POC Capillary Glucose 126 H Calcium 7.8 L Phosphorus 3.4 Magnesium 2.1 Total Bilirubin 0.6 AST 25 ALT 34 Alkaline Phosphatase 60 Total Protein 5.0 L Albumin 2.6 L Triglycerides 84 Quality VTE Prophylaxis VTE prophylaxis: mechanical ordered
--- NOTE | 2024-08-12 14:00 | PC.NURSE ---
This RN gave report to 2 medical RN receiving the patient post EGD. Patient transferred to GI lab.
[2024-08-12] MEDS: LACTATED RINGERS 1,000 ML 150 ML IV CONT (14:12)
[2024-08-12 14:21] LABS: Glucose Point of Care 117 mg/dl (65-105)
--- NOTE | 2024-08-12 14:47 | WPDANESEPPF ---
Anes - Initial Pre Proc Eval Procedure: Operation Date: 08/03/24 17:30 Proposed Procedures p Open Left Incarcerated Inguinal Hernia Repair, Possible Mesh, - Matthias Jett MD s Possible Bowel Resection - Matthias Jett MD Operation Date: 08/08/24 13:45 Proposed Procedures p Exploratory Laparotomy, Pos Bowel Resec - Pipo Peguero DO Operation Date: 08/12/24 14:00 Proposed Procedures p Esophagogastroduodenoscopy - Javier Moreno MD Date/Time: 08/12/24 14:47 Surgeon: Timbo Lund MD Pre Op Diagnosis: SBO, incarcerated L inguinal hernia, EULALIO Patient Data Age: 69 Gender: F Height: 1.42 m Weight: 57.8 kg Last Vital Signs Temp 97.8 F 08/12/24 14:10 Pulse 76 08/12/24 14:10 Resp 24 H 08/12/24 14:10 BP 121/60 08/12/24 14:10 Pulse Ox 96 08/12/24 14:10 O2 Del Method Room Air 08/12/24 14:10 O2 Flow Rate 1 08/12/24 09:15 FiO2 28 08/12/24 04:00 Allergies Allergy/AdvReac Type Severity Reaction Status Date / Time No Known Allergies Allergy Verified 08/03/24 12:46 Home Medications ?Medication ?Instructions ?Recorded ?Confirmed ?Type multivitamin 1 tablet PO DAILY 01/14/22 08/03/24 History triamcinolone acetonide 0.1 % 1 applic topical BID #15 grams 03/04/23 08/03/24 Rx topical cream phenytoin 50 mg chewable tablet 50 mg PO QPM #30 tabs 01/12/24 08/03/24 Rx (Dilantin Infatabs) phenytoin sodium extended 100 mg 100 mg PO .COMPLEX #180 caps 01/20/24 08/03/24 Rx capsule (Dilantin Extended) ondansetron HCl 8 mg tablet 8 mg PO Q8H PRN nausea and 08/01/24 08/03/24 Rx vomiting 3 days #10 tabs Laboratory Tests 08/11/24 08/11/24 08/12/24 17:29 21:22 01:38 WBC RBC Hgb Hct MCV MCH MCHC RDW Plt Count MPV % Immature Plt Fraction Sodium Potassium 3.4 mmol/L (3.4-5.0) Chloride Carbon Dioxide Anion Gap BUN Creatinine Estim Creat Clear Calc Estimated GFR Glucose POC Capillary Glucose 113 H mg/dl 143 H mg/dl (65-105) (65-105) Calcium Phosphorus Magnesium Total Bilirubin AST ALT Alkaline Phosphatase Total Protein Albumin Triglycerides 08/12/24 08/12/24 08/12/24 05:19 11:52 14:18 WBC 8.7 K/mm3 (4.5-10.0) RBC 3.14 L M/mm3 (4.2-5.4) Hgb 10.5 L g/dL (12.0-15.0) Hct 31.0 L % (37.0-47.0) MCV 98.7 fl (80-100) MCH 33.4 pg (26-34) MCHC 33.9 g/dl (32-36) RDW 13.8 % (11.5-14.5) Plt Count 71 L k/mm3 (150-375) MPV 10.3 fl (7.4-10.4) % Immature Plt Fraction 3.5 % (0.9-11.2) Sodium 139 mmol/L (137-145) Potassium 3.4 mmol/L (3.4-5.0) Chloride 104 mmol/L (98-107) Carbon Dioxide 30 mmol/L (22-30) Anion Gap 5 mmol/L (4-12) BUN 29 H mg/dL (7-17) Creatinine 0.50 L mg/dL (0.7-1.0) Estim Creat Clear Calc Not Reportable Estimated GFR > 60 (59 - ) Glucose 120 H mg/dL (65-110) POC Capillary Glucose 126 H mg/dl 117 H mg/dl (65-105) (65-105) Calcium 7.8 L mg/dL (8.4-10.2) Phosphorus 3.4 mg/dL (2.5-4.5) Magnesium 2.1 mg/dL (1.6-2.3) Total Bilirubin 0.6 mg/dL (0.2-1.3) AST 25 U/L (14-36) ALT 34 U/L (6-35) Alkaline Phosphatase 60 U/L (38-126) Total Protein 5.0 L g/dL (6.3-8.2) Albumin 2.6 L g/dL (3.5-5.1) Triglycerides 84 mg/dL (<150) Patient hx anesthesia problems: none Family hx anesthesia problems: none Results Review: All pre-operative results and documents have been reviewed as part of the pre-operative evaluation. [facility] Past Medical History Medical History Small bowel obstruction Ileus, postoperative Nontoxic thyroid nodule Seizures Migraines Arthritis Surgical History Surgical History History of repair of hiatal hernia Laparoscopic Family History Family History Father Diabetes mellitus Diabetic neuropathy Mother Acute myocardial infarction Hypertension Son No problems noted. Social History Social History Smoking status: Former smoker Alcohol intake: never Alcohol use details: seldom; socially Substance use: never Substance use type: does not use Do You Feel Safe in your Home?: Yes Lack of Transportation: No Lack of Food: Never True Current Housing: I Have Housing Concerned About Future Housing: No Difficulty Paying Gas/Electric Bills: No Difficulty Paying for Meds: No Currently Unemployed: No Education: High School Diploma/GED Difficulty w/ Childcare or Family Care: No Living arrangements: alone Spiritual care concerns: No Agree to blood products: Yes Anes - Eval Final PreProcedure Day of Procedure 08/12/24 14:47 Patient weight: normal Lungs: normal air movement Airway: Mallampati scale class II and special considerations (Overbite appreciated. NG in place. ) Neurological: alert and oriented Last oral intake: >/= 8 hours ASA classification: III Emergent: no Anesthetic plan: proceed Anesthesia type and monitoring: general ETT and standard monitoring Results Review: All pre-operative results and documents have been reviewed as part of the pre-operative evaluation. Pt w complicated recent hx of bowel surgery, x 2, now w concern of stomach distention and poss gastric outlet obstruction. Discussed at length w pt and her daughter all R/B/A and concern w regard to this. Plan for general w ETT for EGD due to acute nature of her abdominal process. Informed Consent: The patient's anesthetic plan and its attendant risks and benefits were discussed with the patient/family/POA. Questions were solicited and answers provided to the satisfaction of the patient/family/POA.
[2024-08-12 16:39] LABS: Glucose Point of Care 83 mg/dl (65-105)
[2024-08-12] MEDS: AMINO ACIDS 5%/D15W/E-LYTES/CA 1,000 ML with MULTIVITAMINS-12 INJ VIAL 1 1.25 ML, MULTI... 50 ML IV CONT (18:25)
[2024-08-12] MEDS: FAT EMULSIONS IV 20% 250 ML 20.83 ML IVPB (18:29)
[2024-08-13 01:23] LABS: Glucose Point of Care 107 mg/dl (65-105)
[2024-08-13 05:05] VITALS: BP 115/57; PULSE 86; RESP 16; TEMP 37.2; O2SAT 98
[2024-08-13] MEDS: PIPERACILLN/TAZ 3.375GM/NS50ML 3.375 GM/50 ML BAG IVPB ×4 (06:01→23:56)
[2024-08-13] MEDS: HYDROmorphone HCL INJ (*CRX) 1 MG/ML SYR 0.5 MG IV PUSH (06:02)
[2024-08-13 06:20] LABS: Hematocrit 31.2 % (37.0-47.0); Hemoglobin 10.2 g/dL (12.0-15.0); Mean Corpuscular HGB Conc 32.7 g/dl (32-36); Mean Corpuscular Hemoglobin 32.6 pg (26-34); Mean Corpuscular Volume 99.7 fl (80-100); Platelet Count Result 100 k/mm3 (150-375); Red Blood Count 3.13 M/mm3 (4.2-5.4); Red Cell Distribution Width 13.9 % (11.5-14.5); White Blood Count 14.3 K/mm3 (4.5-10.0)
[2024-08-13] MEDS: CENTRAL LINE FLUSH 10 ML IV PUSH ×3 (06:24→20:48)
[2024-08-13 06:40] LABS: Alanine Aminotransferase 34 U/L (6-35); Albumin Level 2.7 g/dL (3.5-5.1); Alkaline Phosphatase 72 U/L (38-126); Anion Gap 4 mmol/L (4-12); Aspartate Amino Transferase 28 U/L (14-36); Bilirubin,Total 0.5 mg/dL (0.2-1.3); Blood Urea Nitrogen 29 mg/dL (7-17); Calcium 8.1 mg/dL (8.4-10.2); Carbon Dioxide 30 mmol/L (22-30); Chloride 105 mmol/L (98-107); Estimated Glomerular Filt Rate > 60; Glucose 130 mg/dL (65-110); Magnesium 1.9 mg/dL (1.6-2.3); Phosphorus 3.2 mg/dL (2.5-4.5); Potassium 3.8 mmol/L (3.4-5.0); Sodium 139 mmol/L (137-145)
[2024-08-13 07:26] LABS: Glucose Point of Care 124 mg/dl (65-105)
--- NOTE | 2024-08-13 07:35 | PM.IMPN ---
Progress Note: A&P Assessment and Plan (1) Small bowel obstruction: Code(s): K56.609 - Unspecified intestinal obstruction, unspecified as to partial versus complete obstruction Status: Acute Assessment and Plan: Status post / Open incarcerated left femoral hernia repair without mesh 08/08 Exploratory laparotomy, gastrostomy tube placement Management per General surgery NG tube in place to suction Bowel rest On Zosyn GI was consulted, EGD today on 08/12/2024 (2) Ileus, postoperative: Code(s): K91.89 - Other postprocedural complications and disorders of digestive system; K56.7 - Ileus, unspecified Status: Acute Assessment and Plan: See above (3) Incarcerated left inguinal hernia: Code(s): K40.30 - Unilateral inguinal hernia, with obstruction, without gangrene, not specified as recurrent Status: Acute Assessment and Plan: See above (4) EULALIO (acute kidney injury): Code(s): N17.9 - Acute kidney failure, unspecified Status: Acute Assessment and Plan: Creatinine improved with IV fluids. Hold further IV fluids to volume overload. Monitor urine output electrolytes and creatinine (5) Sepsis: Code(s): A41.9 - Sepsis, unspecified organism Status: Acute Assessment and Plan: Continue Zosyn per surgery UA was unremarkable 08/08: blood cultures are negative so far (6) Shock: Code(s): R57.9 - Shock, unspecified Status: Acute Assessment and Plan: Secondary to sepsis versus intravascular volume depletion. Improved and patient is now off of vasopressors Will hold further IV fluids (7) Seizures: Code(s): R56.9 - Unspecified convulsions Status: Chronic Assessment and Plan: Continue IV phenytoin (8) Electrolyte abnormality: Code(s): E87.8 - Other disorders of electrolyte and fluid balance, not elsewhere classified Status: Acute Assessment and Plan: Replace potassium (9) Pulmonary edema: Code(s): J81.1 - Chronic pulmonary edema Status: Acute Assessment and Plan: Chest x-ray shows pulmonary edema. Elevated BNP Echo reviewed Hold further fluids Subjective Date/time seen: 08/13/24 07:35 Interval history: 5 Open incarcerated left femoral hernia repair without mesh 08/08 Exploratory laparotomy, gastrostomy tube placement Her long discussion with the family. Patient complains of abdominal discomfort. Discussed with surgery as well. Previous is increased to 8.7-14.3. Will perform chest x-ray, blood and urine culture. Review of Systems Review of Systems: All systems reviewed & are unremarkable except as noted in HPI and below (HPI) Exam Narrative: General: Frail old female who looks older than her age. She is awake and no significant distress Lungs/Chest: Trachea central Clear BS B/L, No crackles or wheezing. Cardiac: RRR. Normal S1 S2. No murmurs Circulation: Palpable pedal pulses, feet are warm Abdomen: Hypoactive bowel sound. Mild tenderness to palpation, gastrostomy tube in place, incision under dressing Extremities: No clubbing or cyanosis, bilateral edema present : Khanna in place Neurologic: Follows commands. Moves all 4 extremities PERRL AO x3 Skin: No Rash Const: General: comfortable and no acute distress Other: The patient is recumbent in a stretcher in the PACU. , female, elderly, modestly ill-appearing. +fatigue. HENMT: Face/Nose/Sinus: Normal nares present Mouth: Yes dry mucous membranes Other: NG in place. Eyes: General: appearance normal, both eyes and all related structures Sclera: sclerae normal Pupils: Equal, round and reactive pupils present EOM: EOMs intact bilaterally Resp: Effort & Inspection: normal respiratory effort Auscultation: clear to auscultation bilaterally Cardio: Rate: regular rate Rhythm: regular rhythm Other: S1-S2 present without murmur, rub, ectopy GI: Other: Abdomen firm, distended. bowel sounds present, Drain in place, serosanguineous output. Skin: General skin exam: normal color and no rashes or lesions noted Wounds: no wounds Neuro: Cranial nerves: Yes Equal, round and reactive pupils present Speech: normal speech Motor exam (neuro): 5/5 motor strength present throughout Sensory Exam: normal sensation Other: A&O x4, mildly somnolent. Extrem: General: normal to inspection Psych: Mental Status: mental status grossly normal Affect: normal affect Other: Good insight and judgment, pleasant Objective Data Vital Signs Vital Signs: Vital Signs - 24 hr 08/12/24 08:00 08/12/24 08:00 08/12/24 09:15 Temperature 97.7 F Pulse Rate 78 Respiratory Rate 22 H Blood Pressure 107/60 Pulse Oximetry 98 99 98 Oxygen Delivery Nasal Cannula Nasal Cannula Oxygen Flow Rate 1 1 08/12/24 09:25 08/12/24 14:10 08/12/24 16:20 Temperature 97.8 F 97.9 F Pulse Rate 76 98 Respiratory Rate 24 H 22 H Blood Pressure 121/60 131/66 Pulse Oximetry 95 96 100 Oxygen Delivery Room Air Room Air Simple Face Mask Oxygen Flow Rate 8 08/12/24 16:30 08/12/24 16:40 08/12/24 16:50 Temperature Pulse Rate 98 93 87 Respiratory Rate 21 H 20 20 Blood Pressure 137/83 115/70 111/60 Pulse Oximetry 100 99 96 Oxygen Delivery Simple Face Mask Nasal Cannula Nasal Cannula Oxygen Flow Rate 6 4 4 08/12/24 17:00 08/12/24 17:10 08/12/24 20:00 Temperature Pulse Rate 84 88 Respiratory Rate 22 H 21 H Blood Pressure 114/59 L 121/65 Pulse Oximetry 97 97 95 Oxygen Delivery Nasal Cannula Nasal Cannula Nasal Cannula Oxygen Flow Rate 4 4 4 08/12/24 20:27 08/13/24 05:05 Temperature 98.0 F 98.9 F Pulse Rate 86 86 Respiratory Rate 16 16 Blood Pressure 102/55 L 115/57 L Pulse Oximetry 95 98 Oxygen Delivery Oxygen Flow Rate Intake/Output Intake/Output: Intake & Output 08/10/24 08/11/24 08/12/24 08/13/24 23:59 23:59 23:59 23:59 Intake Total 1137.0 1586.7 1852.5 50 Output Total 3025 2475 500 675 Balance -1888.0 -888.3 1352.5 -625 Meds/Results Medications: Active Medications Generic Name Dose Route Start Last Admin Trade Name Freq PRN Reason Stop Dose Admin Dextrose 12.5 gm 08/09/24 07:57 Dextrose 50% 25 Gm/50 Ml Syringe IV PUSH PRN PRN Hypoglycemia Protocol Enoxaparin Sodium 40 mg 08/05/24 09:00 08/08/24 09:34 Enoxaparin 40 Mg/0.4 Ml Syringe SUB-Q 40 mg DAILY MORGAN Administration Glucagon 1 mg 08/09/24 07:57 Glucagon For Inj 1 Mg Vial IM PRN PRN Hypoglycemia Protocol Glucose 15 gm 08/09/24 07:57 Glucose Oral Gel 15 Gm Of Glucse In 37.5 Gm Tube PO PRN PRN Hypoglycemia Protocol Hydromorphone HCl 0.5 mg 08/09/24 11:55 08/13/24 06:02 Hydromorphone Hcl Inj (*Crx) 1 Mg/Ml Syr IV PUSH 0.5 mg Q2H PRN Administration Pain Rated 7-10 Piperacillin/Tazobactam/Dextrose 3.375 gm in 50 mls @ 100 mls/hr 08/08/24 10:05 08/13/24 06:01 Zosyn 3.375 Gm/Ns 50 Ml IVPB 100 mls/hr Q6HR MORGAN Administration Dextrose 1,000 mls @ 100 mls/hr 08/09/24 07:57 Dextrose 5% 1,000 Ml IVPB PRN PRN Hypoglycemia Protocol Dextrose 1,000 mls @ 50 mls/hr 08/09/24 12:28 Dextrose 10% IV CONT .Q20H PRN if PN is interrupted Multivitamins 1.25 ml/ 1,002.5 mls @ 50 mls/hr 08/09/24 13:30 08/12/24 18:25 Multivitamins 1.25 ml/ Amino IV CONT 50 mls/hr Acids/Electrolytes/Dextrose .Q20H3M MORGAN Administration Protocol Fat Emulsion Intravenous 250 mls @ 20.833 mls/hr 08/09/24 13:30 08/12/24 18:29 Lipids 20% IVPB 20.83 mls/hr Q24H MORGAN Administration Insulin Aspart 2 - 5 units 08/09/24 12:00 08/13/24 06:24 Insulin Aspart (*Bkc) 100 Units/Ml SUB-Q Not Given Q6HR MORGAN Protocol Lidocaine 1 patch 08/04/24 10:25 08/12/24 09:00 Lidocaine 5% Patch TRANSDERM 1 patch DAILY MORGAN Administration Miscellaneous Information 1 each 08/12/24 00:01 Clinamix Needs To Be Renewed Or It Will Automatically Discontinue. XX 09/11/24 00:00 CLARIFY MORGAN Naloxone HCl 0.1 mg 08/08/24 05:45 Naloxone Hcl 0.4 Mg/Ml Vial IV PUSH Q2M PRN Opiate Reversal Ondansetron HCl 4 mg 08/03/24 15:38 08/07/24 20:18 Ondansetron Inj 4 Mg/2 Ml Vial IV PUSH 4 mg Q4H PRN Administration Nausea Pantoprazole Sodium 40 mg 08/12/24 21:00 08/12/24 20:26 Pantoprazole Sodium Iv 40 Mg Vial IV PUSH 40 mg Q12HR MORGAN Administration Phenytoin Sodium 225 mg 08/07/24 21:15 08/12/24 20:27 Phenytoin Sod 250 Mg/5 Ml Vial (*Bkc) IV PUSH 225 mg Q12HR MORGAN Administration Sodium Chloride 20 ml 08/06/24 23:57 08/07/24 06:05 Central Line Flush IV PUSH 20 ml PRN PRN Administration after blood draws Sodium Chloride 10 ml 08/06/24 23:57 Central Line Flush IV PUSH PRN PRN with TPN bag changes Sodium Chloride 10 ml 08/07/24 06:00 08/13/24 06:24 Central Line Flush IV PUSH 10 ml Q8HR MORGAN Administration Radiology Results: ITS Impressions Abdomen X-Ray 08/08/24 05:43 Impression: NG tube in place, as above. Marked gaseous distention of several probable dilated small bowel loops. Correlate for small bowel obstruction versus ileus. Abdomen/Pelvis CT 08/08/24 06:07 Impression: Findings highly suspicious for extensive bowel ischemia, extensive small bowel and gastric pneumatosis and extensive portal venous gas. Extensive dilatation of small bowel loops and stomach with decompression of large bowel. Transition point not well delineated, but findings are highly suspicious for distal small bowel obstruction. NG tube tip at the GE junction. Further advancement of NG tube into the stomach is required for adequate placement. Small bilateral pleural effusions. Chest X-Ray 08/10/24 06:32 Impression: Central congestive change and probable mild bibasilar pulmonary edema. Support tubes, as above. Head CT 08/10/24 11:18 IMPRESSION: 1. Normal aging brain. Upper GI Series 08/10/24 13:27 IMPRESSION: Findings within the distal esophagus/proximal stomach for which prior fundoplication is suspected. Esophageal dysmotility and significant esophageal reflux is also detected. Labs Labs: Laboratory Results - last 24 hr 08/12/24 08/12/24 08/12/24 05:19 11:52 14:18 WBC RBC Hgb Hct MCV MCH MCHC RDW Plt Count MPV Sodium Potassium Chloride Carbon Dioxide Anion Gap BUN Creatinine Estim Creat Clear Calc Estimated GFR Glucose POC Capillary Glucose 126 H 117 H Calcium Phosphorus Magnesium Total Bilirubin AST ALT Alkaline Phosphatase Total Protein Albumin Triglycerides 84 08/12/24 08/13/24 08/13/24 16:36 00:54 05:09 WBC RBC Hgb Hct MCV MCH MCHC RDW Plt Count MPV Sodium Potassium Chloride Carbon Dioxide Anion Gap BUN Creatinine Estim Creat Clear Calc Estimated GFR Glucose POC Capillary Glucose 83 107 H 124 H Calcium Phosphorus Magnesium Total Bilirubin AST ALT Alkaline Phosphatase Total Protein Albumin Triglycerides 08/13/24 06:00 WBC 14.3 H RBC 3.13 L Hgb 10.2 L Hct 31.2 L MCV 99.7 MCH 32.6 MCHC 32.7 RDW 13.9 Plt Count 100 L MPV 11.0 H Sodium 139 Potassium 3.8 Chloride 105 Carbon Dioxide 30 Anion Gap 4 BUN 29 H Creatinine 0.48 L Estim Creat Clear Calc Not Reportable Estimated GFR > 60 Glucose 130 H POC Capillary Glucose Calcium 8.1 L Phosphorus 3.2 Magnesium 1.9 Total Bilirubin 0.5 AST 28 ALT 34 Alkaline Phosphatase 72 Total Protein 5.0 L Albumin 2.7 L Triglycerides Quality VTE Prophylaxis VTE prophylaxis: mechanical ordered Hospitalist MIPS Advance Care Plan I have confirmed that the patient's Advanced Care Plan is present, code status is documented, or surrogate decision maker is listed in patient medical record.: Yes Medication Reconciliation I have utilized all available resources to obtain, update and review the patients current medications (includes all prescriptions, OTC, herbals, cannabis, and nutritional supplements).: Yes
[2024-08-13 08:20] VITALS: O2SAT 95
[2024-08-13] MEDS: LIDOCAINE 5% PATCH 1 PATCH TRANSDERM (08:21)
[2024-08-13] MEDS: ENOXAPARIN 40 MG/0.4 ML SYRINGE SUB-Q (08:21)
[2024-08-13 08:39] VITALS: O2SAT 93
[2024-08-13] MEDS: PANTOPRAZOLE SODIUM IV 40 MG VIAL IV PUSH ×2 (09:42→20:39)
[2024-08-13] MEDS: PHENYTOIN SOD 250 MG/5 ML 225 MG IV PUSH ×2 (09:42→20:39)
[2024-08-13] MEDS: AMINO ACIDS 5%/D15W/E-LYTES/CA 1,000 ML with MULTIVITAMINS-12 INJ VIAL 1 1.25 ML, MULTI... 50 ML IV CONT (09:45)
[2024-08-13 11:50] LABS: Glucose Point of Care 121 mg/dl (65-105)
--- NOTE | 2024-08-13 12:34 | WPDGIPROGNO ---
Progress Note: A&P Assessment and Plan (1) Esophageal dysmotility: Code(s): K22.4 - Dyskinesia of esophagus Status: Acute Assessment and Plan: noted previous ramsey but did not feel any resistance, still was dilated up to 20 mm empirically also gastritis no changes, ngt in place and abdomen is distended will add iv reglan hopefully with help with motiligy (2) Ileus, postoperative: Code(s): K91.89 - Other postprocedural complications and disorders of digestive system; K56.7 - Ileus, unspecified Status: Acute (3) Incarcerated left inguinal hernia: Code(s): K40.30 - Unilateral inguinal hernia, with obstruction, without gangrene, not specified as recurrent Status: Acute (4) Early satiety: Code(s): R68.81 - Early satiety Status: Acute (5) Malnutrition: Code(s): E46 - Unspecified protein-calorie malnutrition Status: Acute Assessment and Plan: no tpn for now by surgery (6) Small bowel obstruction: Code(s): K56.609 - Unspecified intestinal obstruction, unspecified as to partial versus complete obstruction Status: Acute (7) Gastritis: Code(s): K29.70 - Gastritis, unspecified, without bleeding Status: Acute Subjective Date/time seen: 08/13/24 12:34 Interval history: egd yesterday with no obstructive finding, noted post ramsey but no stricture- still dilated to 20 mm balloon (max size), also noted gastritis abdomen still distended and not much progress family at bedside worried about her clinical status Review of Systems Review of Systems: All systems reviewed & are unremarkable except as noted in HPI and below Exam Const: Other: chronically ill appearing HENMT: Mouth: Yes dry mucous membranes Other: NG in place. Eyes: General: appearance normal, both eyes and all related structures Neck: Neck: supple Resp: Effort & Inspection: normal respiratory effort Auscultation: clear to auscultation bilaterally Cardio: Rate: regular rate Rhythm: regular rhythm GI: Inspection: distended Other: decreased BS G-tube in place Skin: General skin exam: normal color Neuro: Speech: normal speech Extrem: General: normal to inspection Psych: Mental Status: mental status grossly normal Objective Data Vital Signs Vital Signs: Vital Signs - 24 hr 08/12/24 14:10 08/12/24 16:20 08/12/24 16:30 Temperature 97.8 F 97.9 F Pulse Rate 76 98 98 Respiratory Rate 24 H 22 H 21 H Blood Pressure 121/60 131/66 137/83 Pulse Oximetry 96 100 100 Oxygen Delivery Room Air Simple Face Mask Simple Face Mask Oxygen Flow Rate 8 6 Fraction of Inspired Oxygen 08/12/24 16:40 08/12/24 16:50 08/12/24 17:00 Temperature Pulse Rate 93 87 84 Respiratory Rate 20 20 22 H Blood Pressure 115/70 111/60 114/59 L Pulse Oximetry 99 96 97 Oxygen Delivery Nasal Cannula Nasal Cannula Nasal Cannula Oxygen Flow Rate 4 4 4 Fraction of Inspired Oxygen 08/12/24 17:10 08/12/24 20:00 08/12/24 20:27 Temperature 98.0 F Pulse Rate 88 86 Respiratory Rate 21 H 16 Blood Pressure 121/65 102/55 L Pulse Oximetry 97 95 95 Oxygen Delivery Nasal Cannula Nasal Cannula Oxygen Flow Rate 4 4 Fraction of Inspired Oxygen 08/13/24 05:05 08/13/24 08:39 Temperature 98.9 F Pulse Rate 86 Respiratory Rate 16 Blood Pressure 115/57 L Pulse Oximetry 98 93 Oxygen Delivery Nasal Cannula Oxygen Flow Rate 4 Fraction of Inspired Oxygen 36 Intake/Output Intake/Output: Intake & Output 08/10/24 08/11/24 08/12/24 08/13/24 23:59 23:59 23:59 23:59 Intake Total 1137.0 1586.7 1852.5 816.7 Output Total 3025 2475 500 675 Balance -1888.0 -888.3 1352.5 141.7 Meds/Results Medications: Active Medications Generic Name Dose Route Start Last Admin Trade Name Freq PRN Reason Stop Dose Admin Dextrose 12.5 gm 08/09/24 07:57 Dextrose 50% 25 Gm/50 Ml Syringe IV PUSH PRN PRN Hypoglycemia Protocol Enoxaparin Sodium 40 mg 08/05/24 09:00 08/13/24 08:21 Enoxaparin 40 Mg/0.4 Ml Syringe SUB-Q 40 mg DAILY MORGAN Administration Glucagon 1 mg 08/09/24 07:57 Glucagon For Inj 1 Mg Vial IM PRN PRN Hypoglycemia Protocol Glucose 15 gm 08/09/24 07:57 Glucose Oral Gel 15 Gm Of Glucse In 37.5 Gm Tube PO PRN PRN Hypoglycemia Protocol Hydromorphone HCl 0.5 mg 08/09/24 11:55 08/13/24 06:02 Hydromorphone Hcl Inj (*Crx) 1 Mg/Ml Syr IV PUSH 0.5 mg Q2H PRN Administration Pain Rated 7-10 Piperacillin/Tazobactam/Dextrose 3.375 gm in 50 mls @ 100 mls/hr 08/08/24 10:05 08/13/24 06:01 Zosyn 3.375 Gm/Ns 50 Ml IVPB 100 mls/hr Q6HR MORGAN Administration Dextrose 1,000 mls @ 100 mls/hr 08/09/24 07:57 Dextrose 5% 1,000 Ml IVPB PRN PRN Hypoglycemia Protocol Dextrose 1,000 mls @ 50 mls/hr 08/09/24 12:28 Dextrose 10% IV CONT .Q20H PRN if PN is interrupted Multivitamins 1.25 ml/ 1,002.5 mls @ 50 mls/hr 08/09/24 13:30 08/13/24 09:45 Multivitamins 1.25 ml/ Amino IV CONT 50 mls/hr Acids/Electrolytes/Dextrose .Q20H3M MORGAN Administration Protocol Fat Emulsion Intravenous 250 mls @ 20.833 mls/hr 08/09/24 13:30 08/12/24 18:29 Lipids 20% IVPB 20.83 mls/hr Q24H MORGAN Administration Insulin Aspart 2 - 5 units 08/09/24 12:00 08/13/24 06:24 Insulin Aspart (*Bkc) 100 Units/Ml SUB-Q Not Given Q6HR [facility] Protocol Lidocaine 1 patch 08/04/24 10:25 08/13/24 08:21 Lidocaine 5% Patch TRANSDERM 1 patch DAILY MORGAN Administration Miscellaneous Information 1 each 08/12/24 00:01 Clinamix Needs To Be Renewed Or It Will Automatically Discontinue. XX 09/11/24 00:00 CLARIFY MORGAN Naloxone HCl 0.1 mg 08/08/24 05:45 Naloxone Hcl 0.4 Mg/Ml Vial IV PUSH Q2M PRN Opiate Reversal Ondansetron HCl 4 mg 08/03/24 15:38 08/07/24 20:18 Ondansetron Inj 4 Mg/2 Ml Vial IV PUSH 4 mg Q4H PRN Administration Nausea Pantoprazole Sodium 40 mg 08/12/24 21:00 08/13/24 09:42 Pantoprazole Sodium Iv 40 Mg Vial IV PUSH 40 mg Q12HR MORGAN Administration Phenytoin Sodium 225 mg 08/07/24 21:15 08/13/24 09:42 Phenytoin Sod 250 Mg/5 Ml Vial (*Bkc) IV PUSH 225 mg Q12HR MORGAN Administration Sodium Chloride 20 ml 08/06/24 23:57 08/07/24 06:05 Central Line Flush IV PUSH 20 ml PRN PRN Administration after blood draws Sodium Chloride 10 ml 08/06/24 23:57 Central Line Flush IV PUSH PRN PRN with TPN bag changes Sodium Chloride 10 ml 08/07/24 06:00 08/13/24 06:24 Central Line Flush IV PUSH 10 ml Q8HR MORGAN Administration Radiology Results: ITS Impressions Abdomen X-Ray 08/08/24 05:43 Impression: NG tube in place, as above. Marked gaseous distention of several probable dilated small bowel loops. Correlate for small bowel obstruction versus ileus. Abdomen/Pelvis CT 08/08/24 06:07 Impression: Findings highly suspicious for extensive bowel ischemia, extensive small bowel and gastric pneumatosis and extensive portal venous gas. Extensive dilatation of small bowel loops and stomach with decompression of large bowel. Transition point not well delineated, but findings are highly suspicious for distal small bowel obstruction. NG tube tip at the GE junction. Further advancement of NG tube into the stomach is required for adequate placement. Small bilateral pleural effusions. Chest X-Ray 08/10/24 06:32 Impression: Central congestive change and probable mild bibasilar pulmonary edema. Support tubes, as above. Head CT 08/10/24 11:18 IMPRESSION: 1. Normal aging brain. Upper GI Series 08/10/24 13:27 IMPRESSION: Findings within the distal esophagus/proximal stomach for which prior fundoplication is suspected. Esophageal dysmotility and significant esophageal reflux is also detected. Labs Labs: Laboratory Results - last 24 hr 08/12/24 08/12/24 08/12/24 05:19 14:18 16:36 WBC RBC Hgb Hct MCV MCH MCHC RDW Plt Count MPV Sodium Potassium Chloride Carbon Dioxide Anion Gap BUN Creatinine Estim Creat Clear Calc Estimated GFR Glucose POC Capillary Glucose 117 H 83 Calcium Phosphorus Magnesium Total Bilirubin AST ALT Alkaline Phosphatase Total Protein Albumin Triglycerides 84 08/13/24 08/13/24 08/13/24 00:54 05:09 06:00 WBC 14.3 H RBC 3.13 L Hgb 10.2 L Hct 31.2 L MCV 99.7 MCH 32.6 MCHC 32.7 RDW 13.9 Plt Count 100 L MPV 11.0 H Sodium 139 Potassium 3.8 Chloride 105 Carbon Dioxide 30 Anion Gap 4 BUN 29 H Creatinine 0.48 L Estim Creat Clear Calc Not Reportable Estimated GFR > 60 Glucose 130 H POC Capillary Glucose 107 H 124 H Calcium 8.1 L Phosphorus 3.2 Magnesium 1.9 Total Bilirubin 0.5 AST 28 ALT 34 Alkaline Phosphatase 72 Total Protein 5.0 L Albumin 2.7 L Triglycerides 08/13/24 11:39 WBC RBC Hgb Hct MCV MCH MCHC RDW Plt Count MPV Sodium Potassium Chloride Carbon Dioxide Anion Gap BUN Creatinine Estim Creat Clear Calc Estimated GFR Glucose POC Capillary Glucose 121 H Calcium Phosphorus Magnesium Total Bilirubin AST ALT Alkaline Phosphatase Total Protein Albumin Triglycerides
--- NOTE | 2024-08-13 15:31 | PC.NURSE ---
On 08/13/24, the TESTER SOUND, Anne Holt, provided care and completed [facility] documentation on this patient. I have reviewed the [employer]'s documentation and agree with the findings.
[2024-08-13 15:58] VITALS: BP 129/54; PULSE 83; RESP 16; TEMP 36.9; O2SAT 95
--- NOTE | 2024-08-13 15:59 | P.PN_ITS ---
Progress Note: A&P Assessment and Plan (1) Malnutrition: Code(s): E46 - Unspecified protein-calorie malnutrition Status: Acute Assessment and Plan: Albumin is 2.8. Continue TPN for now. May consider starting tube feeds at low rate later today. (2) Small bowel obstruction: Code(s): K56.609 - Unspecified intestinal obstruction, unspecified as to partial versus complete obstruction Status: Acute Assessment and Plan: Resolved after repair of the incarcerated left femoral hernia. (3) Ileus, postoperative: Code(s): K91.89 - Other postprocedural complications and disorders of digestive system; K56.7 - Ileus, unspecified Status: Acute Assessment and Plan: Postoperative ileus seems to wax and wane. Abdominal exam reveals her abdomen revealed more distended today[place] [id number]. Check urine for UTI or chest x-ray for pneumonia to see if that is the reason why she has elevated white blood cell count and if it is contributing to her ongoing ileus. No evidence of wound infection. She may have some degree of gastroparesis. Agree with Dr. Holt's recommendation to start Reglan. I had a lengthy discussion with the patient's daughter bedside today. Again went over the results of the EGD showed no evidence of obstruction and I said I would agree with GI recommendations to start some Reglan. There is no small bowel or colonic obstruction. Her prolonged ileus continues without any obvious reasons that we can tell at this time. She continues on IV antibiotics at this time as well. Generalized failure to thrive is a consideration as a contributing factor to why she is not progressing as we would hope. I did discuss this with the patient's daughter today. She seems to understand. (4) Incarcerated left inguinal hernia: Code(s): K40.30 - Unilateral inguinal hernia, with obstruction, without gangrene, not specified as recurrent Status: Acute Assessment and Plan: Resolved after repair. Subjective Date/time seen: 08/13/24 15:59 Interval history: Patient awakens to voice. No specific complaints today. No bowel movements today. No nausea. Family at bedside states that she is more distended today. White blood cell count did increase to 14,000. No fever or tachycardia. She remains on TPN. G-tube is draining. EGD yesterday showed some mild gastritis. There was no evidence of obstruction from the Marcos fundoplication. The GE junction was dilated with a pneumatic balloon with good results. No evidence of obstruction in the distal stomach or duodenum. Exam GI: Other: Abdomen is mildly distended but soft. Midline incision healing well without redness or drainage. No evidence of wound infection gastrostomy tube site is clean and dry. Output from the G-tube is bilious and nonbloody. Objective Data Vital Signs Vital Signs: Vital Signs - 24 hr 08/12/24 16:20 08/12/24 16:30 08/12/24 16:40 Temperature 36.6 C Pulse Rate 98 98 93 Respiratory Rate 22 H 21 H 20 Blood Pressure 131/66 137/83 115/70 Pulse Oximetry 100 100 99 Oxygen Delivery Simple Face Mask Simple Face Mask Nasal Cannula Oxygen Flow Rate 8 6 4 Fraction of Inspired Oxygen 08/12/24 16:50 08/12/24 17:00 08/12/24 17:10 Temperature Pulse Rate 87 84 88 Respiratory Rate 20 22 H 21 H Blood Pressure 111/60 114/59 L 121/65 Pulse Oximetry 96 97 97 Oxygen Delivery Nasal Cannula Nasal Cannula Nasal Cannula Oxygen Flow Rate 4 4 4 Fraction of Inspired Oxygen 08/12/24 20:00 08/12/24 20:27 08/13/24 05:05 Temperature 36.7 C 37.2 C Pulse Rate 86 86 Respiratory Rate 16 16 Blood Pressure 102/55 L 115/57 L Pulse Oximetry 95 95 98 Oxygen Delivery Nasal Cannula Oxygen Flow Rate 4 Fraction of Inspired Oxygen 08/13/24 08:39 Temperature Pulse Rate Respiratory Rate Blood Pressure Pulse Oximetry 93 Oxygen Delivery Nasal Cannula Oxygen Flow Rate 4 Fraction of Inspired Oxygen 36 Intake/Output Intake/Output: Intake & Output 08/10/24 08/11/24 08/12/24 08/13/24 23:59 23:59 23:59 23:59 Intake Total 1137.0 1586.7 1852.5 866.7 Output Total 3025 2475 500 675 Balance -1888.0 -888.3 1352.5 191.7 Meds/Results Medications: Active Medications Generic Name Dose Route Start Last Admin Trade Name Freq PRN Reason Stop Dose Admin Dextrose 12.5 gm 08/09/24 07:57 Dextrose 50% 25 Gm/50 Ml Syringe IV PUSH PRN PRN Hypoglycemia Protocol Enoxaparin Sodium 40 mg 08/05/24 09:00 08/13/24 08:21 Enoxaparin 40 Mg/0.4 Ml Syringe SUB-Q 40 mg DAILY MORGAN Administration Glucagon 1 mg 08/09/24 07:57 Glucagon For Inj 1 Mg Vial IM PRN PRN Hypoglycemia Protocol Glucose 15 gm 08/09/24 07:57 Glucose Oral Gel 15 Gm Of Glucse In 37.5 Gm Tube PO PRN PRN Hypoglycemia Protocol Hydromorphone HCl 0.5 mg 08/09/24 11:55 08/13/24 06:02 Hydromorphone Hcl Inj (*Crx) 1 Mg/Ml Syr IV PUSH 0.5 mg Q2H PRN Administration Pain Rated 7-10 Piperacillin/Tazobactam/Dextrose 3.375 gm in 50 mls @ 100 mls/hr 08/08/24 10:05 08/13/24 13:16 Zosyn 3.375 Gm/Ns 50 Ml IVPB 100 mls/hr Q6HR MORGAN Administration Dextrose 1,000 mls @ 100 mls/hr 08/09/24 07:57 Dextrose 5% 1,000 Ml IVPB PRN PRN Hypoglycemia Protocol Dextrose 1,000 mls @ 50 mls/hr 08/09/24 12:28 Dextrose 10% IV CONT .Q20H PRN if PN is interrupted Multivitamins 1.25 ml/ 1,002.5 mls @ 50 mls/hr 08/09/24 13:30 08/13/24 09:45 Multivitamins 1.25 ml/ Amino IV CONT 50 mls/hr Acids/Electrolytes/Dextrose .Q20H3M MORGAN Administration Protocol Fat Emulsion Intravenous 250 mls @ 20.833 mls/hr 08/09/24 13:30 08/12/24 18:29 Lipids 20% IVPB 20.83 mls/hr Q24H MORGAN Administration Insulin Aspart 2 - 5 units 08/09/24 12:00 08/13/24 12:00 Insulin Aspart (*Bkc) 100 Units/Ml SUB-Q Not Given Q6HR MORGAN Protocol Lidocaine 1 patch 08/04/24 10:25 08/13/24 08:21 Lidocaine 5% Patch TRANSDERM 1 patch DAILY MORGAN Administration Metoclopramide HCl 5 mg 08/13/24 18:00 Metoclopramide Hcl Inj 10 Mg/2 Ml Vial IV PUSH Q6HR [facility] Miscellaneous Information 1 each 08/12/24 00:01 Clinamix Needs To Be Renewed Or It Will Automatically Discontinue. XX 09/11/24 00:00 CLARIFY MORGAN Naloxone HCl 0.1 mg 08/08/24 05:45 Naloxone Hcl 0.4 Mg/Ml Vial IV PUSH Q2M PRN Opiate Reversal Ondansetron HCl 4 mg 08/03/24 15:38 08/07/24 20:18 Ondansetron Inj 4 Mg/2 Ml Vial IV PUSH 4 mg Q4H PRN Administration Nausea Pantoprazole Sodium 40 mg 08/12/24 21:00 08/13/24 09:42 Pantoprazole Sodium Iv 40 Mg Vial IV PUSH 40 mg Q12HR MORGAN Administration Phenytoin Sodium 225 mg 08/07/24 21:15 08/13/24 09:42 Phenytoin Sod 250 Mg/5 Ml Vial (*Bkc) IV PUSH 225 mg Q12HR MORGAN Administration Sodium Chloride 20 ml 08/06/24 23:57 08/07/24 06:05 Central Line Flush IV PUSH 20 ml PRN PRN Administration after blood draws Sodium Chloride 10 ml 08/06/24 23:57 Central Line Flush IV PUSH PRN PRN with TPN bag changes Sodium Chloride 10 ml 08/07/24 06:00 08/13/24 06:24 Central Line Flush IV PUSH 10 ml Q8HR MORGAN Administration Radiology Results: ITS Impressions Abdomen X-Ray 08/08/24 05:43 Impression: NG tube in place, as above. Marked gaseous distention of several probable dilated small bowel loops. Correlate for small bowel obstruction versus ileus. Abdomen/Pelvis CT 08/08/24 06:07 Impression: Findings highly suspicious for extensive bowel ischemia, extensive small bowel and gastric pneumatosis and extensive portal venous gas. Extensive dilatation of small bowel loops and stomach with decompression of large bowel. Transition point not well delineated, but findings are highly suspicious for distal small bowel obstruction. NG tube tip at the GE junction. Further advancement of NG tube into the stomach is required for adequate placement. Small bilateral pleural effusions. Head CT 08/10/24 11:18 IMPRESSION: 1. Normal aging brain. Upper GI Series 08/10/24 13:27 IMPRESSION: Findings within the distal esophagus/proximal stomach for which prior fundopl ication is suspected. Esophageal dysmotility and significant esophageal reflux is also detected. Labs Labs: Laboratory Results - last 24 hr 08/12/24 08/13/24 08/13/24 16:36 00:54 05:09 WBC RBC Hgb Hct MCV MCH MCHC RDW Plt Count MPV Sodium Potassium Chloride Carbon Dioxide Anion Gap BUN Creatinine Estim Creat Clear Calc Estimated GFR Glucose POC Capillary Glucose 83 107 H 124 H Calcium Phosphorus Magnesium Total Bilirubin AST ALT Alkaline Phosphatase Total Protein Albumin 08/13/24 08/13/24 06:00 11:39 WBC 14.3 H RBC 3.13 L Hgb 10.2 L Hct 31.2 L MCV 99.7 MCH 32.6 MCHC 32.7 RDW 13.9 Plt Count 100 L MPV 11.0 H Sodium 139 Potassium 3.8 Chloride 105 Carbon Dioxide 30 Anion Gap 4 BUN 29 H Creatinine 0.48 L Estim Creat Clear Calc Not Reportable Estimated GFR > 60 Glucose 130 H POC Capillary Glucose 121 H Calcium 8.1 L Phosphorus 3.2 Magnesium 1.9 Total Bilirubin 0.5 AST 28 ALT 34 Alkaline Phosphatase 72 Total Protein 5.0 L Albumin 2.7 L
[2024-08-13] MEDS: NACL 0.9% IRRIGATION POUR BOTTL 1,000 ML 1000 ML (16:07)
[2024-08-13] MEDS: FAT EMULSIONS IV 20% 250 ML 20.83 ML IVPB (16:08)
[2024-08-13 18:08] LABS: Glucose Point of Care 126 mg/dl (65-105)
[2024-08-13] MEDS: METOCLOPRAMIDE HCL INJ 10 MG/2 ML VIAL 5 MG IV PUSH ×2 (18:54→23:57)
[2024-08-13 20:00] VITALS: O2SAT 98
[2024-08-13 21:17] VITALS: BP 112/82; PULSE 95; RESP 16; TEMP 37.2; O2SAT 98
[2024-08-13 21:50] LABS: Add Urine Microscopic? YES; Appearance Urine Clear (Clear); Bacteria Urine None Seen /hpf; Bilirubin Urine Negative (Negative); Blood Urine Negative (Negative); Color Urine Yellow (Yellow); Glucose Urine UA Negative (Negative); Ketones Urine Negative (Negative); Leukocyte Esterase Ur Negative LEU/UL (Negative); Nitrate Urine Negative (Negative); Non Pathogenic Casts 0-2; Protein Urine Trace mg/dL (Negative); RBC Urine 0-2 /hpf (0-2); Specific Grav Ur 1.021 (1.001-1.035); Squamous Epithelial Cell Urine None Seen /hpf (Few); Urobilinogen Urine 0.2 mg/dL (<2.0); WBC Urine 0-5 /hpf (0-3); pH Urine 7.5 (5.0-9.0)
[2024-08-14 05:10] VITALS: BP 125/59; PULSE 90; RESP 16; TEMP 36.5; O2SAT 98
[2024-08-14] MEDS: AMINO ACIDS 5%/D15W/E-LYTES/CA 1,000 ML with MULTIVITAMINS-12 INJ VIAL 1 1.25 ML, MULTI... 50 ML IV CONT (05:35)
[2024-08-14] MEDS: METOCLOPRAMIDE HCL INJ 10 MG/2 ML VIAL 5 MG IV PUSH ×3 (05:45→18:10)
[2024-08-14] MEDS: PIPERACILLN/TAZ 3.375GM/NS50ML 3.375 GM/50 ML BAG IVPB ×3 (05:45→17:34)
[2024-08-14 06:49] LABS: Anion Gap 6 mmol/L (4-12); Blood Urea Nitrogen 24 mg/dL (7-17); Carbon Dioxide 26 mmol/L (22-30); Chloride 103 mmol/L (98-107); Estimated Glomerular Filt Rate > 60; Glucose 115 mg/dL (65-110); Phosphorus 3.1 mg/dL (2.5-4.5); Potassium 3.8 mmol/L (3.4-5.0); Sodium 135 mmol/L (137-145)
[2024-08-14 06:50] LABS: Triglycerides 87 mg/dL (<150)
[2024-08-14 07:36] LABS: Glucose Point of Care 124 mg/dl (65-105)
--- NOTE | 2024-08-14 08:03 | P.PNIM_ITS ---
Progress Note: A&P Assessment and Plan (1) Small bowel obstruction: Code(s): K56.609 - Unspecified intestinal obstruction, unspecified as to partial versus complete obstruction Status: Acute Assessment and Plan: Status post 08/03 Open incarcerated left femoral hernia repair without mesh 08/08 Exploratory laparotomy, gastrostomy tube placement Management per General surgery NG tube in place to suction Bowel rest On Zosyn GI was consulted, EGD on 08/12/2024 No significant finding on EGD other than intact gastrostomy tube and gastritis. (2) Ileus, postoperative: Code(s): K91.89 - Other postprocedural complications and disorders of digestive system; K56.7 - Ileus, unspecified Status: Acute Assessment and Plan: See above (3) Incarcerated left inguinal hernia: Code(s): K40.30 - Unilateral inguinal hernia, with obstruction, without gangrene, not specified as recurrent Status: Acute Assessment and Plan: See above (4) EULALIO (acute kidney injury): Code(s): N17.9 - Acute kidney failure, unspecified Status: Acute Assessment and Plan: Creatinine improved with IV fluids. Hold further IV fluids to volume overload. Monitor urine output electrolytes and creatinine (5) Sepsis: Code(s): A41.9 - Sepsis, unspecified organism Status: Acute Assessment and Plan: Continue Zosyn per surgery UA was unremarkable 08/08: blood cultures are negative so far (6) Shock: Code(s): R57.9 - Shock, unspecified Status: Acute Assessment and Plan: Secondary to sepsis versus intravascular volume depletion. Improved and patient is now off of vasopressors Will hold further IV fluids (7) Seizures: Code(s): R56.9 - Unspecified convulsions Status: Chronic Assessment and Plan: Continue IV phenytoin (8) Electrolyte abnormality: Code(s): E87.8 - Other disorders of electrolyte and fluid balance, not elsewhere classified Status: Acute Assessment and Plan: Replace potassium (9) Pulmonary edema: Code(s): J81.1 - Chronic pulmonary edema Status: Acute Assessment and Plan: Chest x-ray shows pulmonary edema. Elevated BNP Echo reviewed Hold further fluids (10) Leukocytosis: Code(s): D72.829 - Elevated white blood cell count, unspecified Status: Acute Assessment and Plan: Possibly reactive Monitoring blood culture and urine culture Chest x-ray no significant finding UA reviewed and no significant pain Ordered nasal MRSA Subjective Date/time seen: 08/14/24 08:03 Interval history: Chest x-ray shows no evidence of pneumonia. UA shows no significant finding. The reason WBC possibly due to reactive leukocytosis. Will monitor culture blood and urine. Order nasal MRSA. NG tube had darker 600 mL drainage. Discussed with the surgery team possible starting nutrition through PEG tube. Review of Systems Review of Systems: All systems reviewed & are unremarkable except as noted in HPI and below (HPI) Exam Narrative: General: Frail old female who looks older than her age. She is awake and no significant distress Lungs/Chest: Trachea central Clear BS B/L, No crackles or wheezing. Cardiac: RRR. Normal S1 S2. No murmurs Circulation: Palpable pedal pulses, feet are warm Abdomen: Hypoactive bowel sound. Mild tenderness to palpation, gastrostomy tube in place, incision under dressing Extremities: No clubbing or cyanosis, bilateral edema present : Khanna in place Neurologic: Follows commands. Moves all 4 extremities PERRL AO x3 Skin: No Rash Const: General: comfortable and no acute distress Other: The patient is recumbent in a stretcher in the PACU. , female, elderly, modestly ill-appearing. +fatigue. HENMT: Face/Nose/Sinus: Normal nares present Mouth: Yes dry mucous membranes Other: NG in place. Eyes: General: appearance normal, both eyes and all related structures Sclera: sclerae normal Pupils: Equal, round and reactive pupils present EOM: EOMs intact bilaterally Resp: Effort & Inspection: normal respiratory effort Auscultation: clear to auscultation bilaterally Cardio: Rate: regular rate Rhythm: regular rhythm Other: S1-S2 present without murmur, rub, ectopy GI: Other: Abdomen firm, distended. bowel sounds present, Drain in place, serosanguineous output. Skin: General skin exam: normal color and no rashes or lesions noted Wounds: no wounds Neuro: Cranial nerves: Yes Equal, round and reactive pupils present Speech: normal speech Motor exam (neuro): 5/5 motor strength present throughout Sensory Exam: normal sensation Other: A&O x4, mildly somnolent. Extrem: General: normal to inspection Psych: Mental Status: mental status grossly normal Affect: normal affect Other: Good insight and judgment, pleasant Objective Data Vital Signs Vital Signs: Vital Signs - 24 hr 08/13/24 08:20 08/13/24 08:39 08/13/24 15:58 Temperature 98.4 F Pulse Rate 83 Respiratory Rate 16 Blood Pressure 129/54 L Pulse Oximetry 95 93 95 Oxygen Delivery Nasal Cannula Nasal Cannula Oxygen Flow Rate 4 4 Fraction of Inspired Oxygen 36 08/13/24 20:00 08/13/24 21:17 08/14/24 05:10 Temperature 98.9 F 97.7 F Pulse Rate 95 90 Respiratory Rate 16 16 Blood Pressure 112/82 125/59 L Pulse Oximetry 98 98 98 Oxygen Delivery Nasal Cannula Oxygen Flow Rate 4 Fraction of Inspired Oxygen Intake/Output Intake/Output: Intake & Output 08/11/24 08/12/24 08/13/24 08/14/24 23:59 23:59 23:59 23:59 Intake Total 1586.7 1852.5 1216.7 1041.7 Output Total 2475 500 1625 825 Balance -888.3 1352.5 -408.3 216.7 Meds/Results Medications: Active Medications Generic Name Dose Route Start Last Admin Trade Name Freq PRN Reason Stop Dose Admin Bisacodyl 10 mg 08/13/24 15:59 Bisacodyl 10 Mg Suppository RECTAL QAM PRN Constipation Dextrose 12.5 gm 08/09/24 07:57 Dextrose 50% 25 Gm/50 Ml Syringe IV PUSH PRN PRN Hypoglycemia Protocol Enoxaparin Sodium 40 mg 08/05/24 09:00 08/13/24 08:21 Enoxaparin 40 Mg/0.4 Ml Syringe SUB-Q 40 mg DAILY MORGAN Administration Glucagon 1 mg 08/09/24 07:57 Glucagon For Inj 1 Mg Vial IM PRN PRN Hypoglycemia Protocol Glucose 15 gm 08/09/24 07:57 Glucose Oral Gel 15 Gm Of Glucse In 37.5 Gm Tube PO PRN PRN Hypoglycemia Protocol Hydromorphone HCl 0.5 mg 08/09/24 11:55 08/13/24 06:02 Hydromorphone Hcl Inj (*Crx) 1 Mg/Ml Syr IV PUSH 0.5 mg Q2H PRN Administration Pain Rated 7-10 Piperacillin/Tazobactam/Dextrose 3.375 gm in 50 mls @ 100 mls/hr 08/08/24 10:05 08/14/24 05:45 Zosyn 3.375 Gm/Ns 50 Ml IVPB 100 mls/hr Q6HR MORGAN Administration Dextrose 1,000 mls @ 100 mls/hr 08/09/24 07:57 Dextrose 5% 1,000 Ml IVPB PRN PRN Hypoglycemia Protocol Dextrose 1,000 mls @ 50 mls/hr 08/09/24 12:28 Dextrose 10% IV CONT .Q20H PRN if PN is interrupted Multivitamins 1.25 ml/ 1,002.5 mls @ 50 mls/hr 08/09/24 13:30 08/14/24 05:35 Multivitamins 1.25 ml/ Amino IV CONT 50 mls/hr Acids/Electrolytes/Dextrose .Q20H3M MORGAN Administration Protocol Fat Emulsion Intravenous 250 mls @ 20.833 mls/hr 08/09/24 13:30 08/13/24 16:08 Lipids 20% IVPB 20.83 mls/hr Q24H MORGAN Administration Insulin Aspart 2 - 5 units 08/09/24 12:00 08/13/24 18:22 Insulin Aspart (*Bkc) 100 Units/Ml SUB-Q Not Given Q6HR MORGAN Protocol Lidocaine 1 patch 08/04/24 10:25 08/13/24 08:21 Lidocaine 5% Patch TRANSDERM 1 patch DAILY MORGAN Administration Metoclopramide HCl 5 mg 08/13/24 18:00 08/14/24 05:45 Metoclopramide Hcl Inj 10 Mg/2 Ml Vial IV PUSH 5 mg Q6HR MORGAN Administration Miscellaneous Information 1 each 08/12/24 00:01 Clinamix Needs To Be Renewed Or It Will Automatically Discontinue. XX 09/11/24 00:00 CLARIFY MORGAN Naloxone HCl 0.1 mg 08/08/24 05:45 Naloxone Hcl 0.4 Mg/Ml Vial IV PUSH Q2M PRN Opiate Reversal Ondansetron HCl 4 mg 08/03/24 15:38 08/07/24 20:18 Ondansetron Inj 4 Mg/2 Ml Vial IV PUSH 4 mg Q4H PRN Administration Nausea Pantoprazole Sodium 40 mg 08/12/24 21:00 08/13/24 20:39 Pantoprazole Sodium Iv 40 Mg Vial IV PUSH 40 mg Q12HR MORGAN Administration Phenytoin Sodium 225 mg 08/07/24 21:15 08/13/24 20:39 Phenytoin Sod 250 Mg/5 Ml Vial (*Bkc) IV PUSH 225 mg Q12HR MORGAN Administration Sodium Chloride 20 ml 08/06/24 23:57 08/07/24 06:05 Central Line Flush IV PUSH 20 ml PRN PRN Administration after blood draws Sodium Chloride 10 ml 08/06/24 23:57 Central Line Flush IV PUSH PRN PRN with TPN bag changes Sodium Chloride 10 ml 08/07/24 06:00 08/13/24 20:48 Central Line Flush IV PUSH 10 ml Q8HR MORGAN Administration Radiology Results: ITS Impressions Abdomen X-Ray 08/08/24 05:43 Impression: NG tube in place, as above. Marked gaseous distention of several probable dilated small bowel loops. Correlate for small bowel obstruction versus ileus. Abdomen/Pelvis CT 08/08/24 06:07 Impression: Findings highly suspicious for extensive bowel ischemia, extensive small bowel and gastric pneumatosis and extensive portal venous gas. Extensive dilatation of small bowel loops and stomach with decompression of large bowel. Transition point not well delineated, but findings are highly suspicious for distal small bowel obstruction. NG tube tip at the GE junction. Further advancement of NG tube into the stomach is required for adequate placement. Small bilateral pleural effusions. Head CT 08/10/24 11:18 IMPRESSION: 1. Normal aging brain. Upper GI Series 08/10/24 13:27 IMPRESSION: Findings within the distal esophagus/proximal stomach for which prior fundoplication is suspected. Esophageal dysmotility and significant esophageal reflux is also detected. Chest X-Ray 08/13/24 16:14 IMPRESSION: Right upper extremity PICC terminates in the right atrium, consider 3 cm retraction. No focal consolidation to suggest pneumonia. Possible small bilateral pleural effusions. Labs Labs: Laboratory Results - last 24 hr 08/13/24 08/13/24 08/13/24 11:39 18:06 21:02 Sodium Potassium Chloride Carbon Dioxide Anion Gap BUN Creatinine Estim Creat Clear Calc Estimated GFR Glucose POC Capillary Glucose 121 H 126 H Calcium Phosphorus Triglycerides Urine Color Yellow Urine Appearance Clear Urine pH 7.5 Ur Specific [place] 1.021 Urine Protein Trace Urine Glucose (UA) Negative Urine Ketones Negative Ur Blood (Man) Negative Urine Nitrate Negative Urine Bilirubin Negative Urine Urobilinogen 0.2 Ur Leukocyte Esterase Negative Urine RBC 0-2 Urine WBC 0-5 Ur Squamous Epith Cells None seen Urine Bacteria None seen Urine Casts 0-2 08/14/24 08/14/24 08/14/24 04:52 06:23 06:33 Sodium 135 L Potassium 3.8 Chloride 103 Carbon Dioxide 26 Anion Gap 6 BUN 24 H Creatinine 0.43 L Estim Creat Clear Calc Not Reportable Estimated GFR > 60 Glucose 115 H POC Capillary Glucose 124 H Calcium 8.0 L Phosphorus 3.1 Triglycerides 87 Urine Color Urine Appearance Urine pH Ur Specific [place] Urine Protein Urine Glucose (UA) Urine Ketones Ur Blood (Man) Urine Nitrate Urine Bilirubin Urine Urobilinogen Ur Leukocyte Esterase Urine RBC Urine WBC Ur Squamous Epith Cells Urine Bacteria Urine Casts Quality VTE Prophylaxis VTE prophylaxis: mechanical ordered Hospitalist MIPS Advance Care Plan I have confirmed that the patient's Advanced Care Plan is present, code status is documented, or surrogate decision maker is listed in patient medical record.: Yes Medication Reconciliation I have utilized all available resources to obtain, update and review the patients current medications (includes all prescriptions, OTC, herbals, cannabis, and nutritional supplements).: Yes
[2024-08-14] MEDS: LIDOCAINE 5% PATCH 1 PATCH TRANSDERM (08:25)
[2024-08-14] MEDS: PANTOPRAZOLE SODIUM IV 40 MG VIAL IV PUSH ×2 (08:26→21:22)
[2024-08-14 08:34] VITALS: O2SAT 98
[2024-08-14] MEDS: CENTRAL LINE FLUSH 10 ML IV PUSH ×3 (08:34→21:22)
[2024-08-14] MEDS: PHENYTOIN SOD 250 MG/5 ML 225 MG IV PUSH ×2 (08:37→21:22)
[2024-08-14 08:45] LABS: Basophils Absolute Auto 0.1 K/mm3 (0.0-0.1); Basophils Percent Auto 0.6 % (0.2-1.2); Eosinophils Absolute Auto 0.1 K/mm3 (0-0.3); Hematocrit 30.7 % (37.0-47.0); Hemoglobin 10.1 g/dL (12.0-15.0); Immature Granulocyte Absolute 0.41 K/mm3 (0.00-0.031); Immature Granulocyte Percent A 3.3 % (0-0.5); Lymphocytes Absolute Auto 1.07 K/mm3 (0.9-3.2); Lymphocytes Percent Auto 8.6 % (18.3-44.2); Mean Corpuscular HGB Conc 32.9 g/dl (32-36); Mean Corpuscular Hemoglobin 32.7 pg (26-34); Mean Corpuscular Volume 99.4 fl (80-100); Mean Platelet Volume 11.4 fl (7.4-10.4); Monocytes Absolute Auto 0.6 K/mm3 (0.1-0.6); Monocytes Percent Auto 4.5 % (2.6-8.5); Neutrophils Absolute Auto 10.2 K/mm3 (1.3-6.7); Platelet Count Result 116 k/mm3 (150-375); Red Blood Count 3.09 M/mm3 (4.2-5.4); Red Cell Distribution Width 13.6 % (11.5-14.5); White Blood Count 12.5 K/mm3 (4.5-10.0)
--- NOTE | 2024-08-14 11:19 | WPDPN ---
Progress Note: A&P Assessment and Plan (1) Ileus, postoperative: Code(s): K91.89 - Other postprocedural complications and disorders of digestive system; K56.7 - Ileus, unspecified Status: Acute Assessment and Plan: Still awaiting a return of good bowel function. Will try some trickle tube feeds at10cc an hour this evening and jumpstart function of her bowel. If she tolerates 10cc an hour today that can increase to 20cc an hour later today. (2) Small bowel obstruction: Code(s): K56.609 - Unspecified intestinal obstruction, unspecified as to partial versus complete obstruction Status: Acute Assessment and Plan: Resolved (3) Incarcerated left inguinal hernia: Code(s): K40.30 - Unilateral inguinal hernia, with obstruction, without gangrene, not specified as recurrent Status: Acute Assessment and Plan: Status post open incarcerated femoral hernia repair without mesh. (4) Malnutrition: Code(s): E46 - Unspecified protein-calorie malnutrition Status: Acute Assessment and Plan: Continue on TPN for now for malnutrition. Hopefully she can tolerate tube feeds. Subjective Date/time seen: 08/14/24 11:19 Interval history: Patient awake and answers questions appropriately. Family at the bedside. Still complains of having some back pain and some abdominal pain. No nausea or vomiting. G-tube is to gravity drainage. NG tube is to low intermittent suction. Abdominal distention is about the same today. No bowel movements. Continues on TPN. White blood cell count is decreased down to 12,000 from 14,000 yesterday. No fever or tachycardia. Urinalysis is clean without evidence of urinary tract infection. Chest x-ray shows no significant infiltrates and no significant pleural effusions. Blood cultures are still pending. Exam GI: Other: Abdomen is soft and mildly distended. Midline incision is healing well without redness or drainage. G-tube in place. No drainage around the gastrostomy tube Objective Data Vital Signs Vital Signs: Vital Signs - 24 hr 08/13/24 15:58 08/13/24 20:00 08/13/24 21:17 Temperature 36.9 C 37.2 C Pulse Rate 83 95 Respiratory Rate 16 16 Blood Pressure 129/54 L 112/82 Pulse Oximetry 95 98 98 Oxygen Delivery Nasal Cannula Oxygen Flow Rate 4 08/14/24 05:10 08/14/24 08:34 Temperature 36.5 C Pulse Rate 90 Respiratory Rate 16 Blood Pressure 125/59 L Pulse Oximetry 98 98 Oxygen Delivery Nasal Cannula Oxygen Flow Rate 4 Intake/Output Intake/Output: Intake & Output 08/11/24 08/12/24 08/13/24 08/14/24 23:59 23:59 23:59 23:59 Intake Total 1586.7 1852.5 1216.7 1041.7 Output Total 2475 500 1625 825 Balance -888.3 1352.5 -408.3 216.7 Meds/Results Medications: Active Medications Generic Name Dose Route Start Last Admin Trade Name Freq PRN Reason Stop Dose Admin Bisacodyl 10 mg 08/15/24 09:00 Bisacodyl 10 Mg Suppository RECTAL QAM MORGAN Dextrose 12.5 gm 08/09/24 07:57 Dextrose 50% 25 Gm/50 Ml Syringe IV PUSH PRN PRN Hypoglycemia Protocol Enoxaparin Sodium 40 mg 08/05/24 09:00 08/14/24 08:34 Enoxaparin 40 Mg/0.4 Ml Syringe SUB-Q Not Given DAILY MORGAN Glucagon 1 mg 08/09/24 07:57 Glucagon For Inj 1 Mg Vial IM PRN PRN Hypoglycemia Protocol Glucose 15 gm 08/09/24 07:57 Glucose Oral Gel 15 Gm Of Glucse In 37.5 Gm Tube PO PRN PRN Hypoglycemia Protocol Hydromorphone HCl 0.5 mg 08/09/24 11:55 08/13/24 06:02 Hydromorphone Hcl Inj (*Crx) 1 Mg/Ml Syr IV PUSH 0.5 mg Q2H PRN Administration Pain Rated 7-10 Piperacillin/Tazobactam/Dextrose 3.375 gm in 50 mls @ 100 mls/hr 08/08/24 10:05 08/14/24 05:45 Zosyn 3.375 Gm/Ns 50 Ml IVPB 100 mls/hr Q6HR MORGAN Administration Dextrose 1,000 mls @ 100 mls/hr 08/09/24 07:57 Dextrose 5% 1,000 Ml IVPB PRN PRN Hypoglycemia Protocol Dextrose 1,000 mls @ 50 mls/hr 08/09/24 12:28 Dextrose 10% IV CONT .Q20H PRN if PN is interrupted Multivitamins 1.25 ml/ 1,002.5 mls @ 50 mls/hr 08/09/24 13:30 08/14/24 05:35 Multivitamins 1.25 ml/ Amino IV CONT 50 mls/hr Acids/Electrolytes/Dextrose .Q20H3M MORGAN Administration Protocol Fat Emulsion Intravenous 250 mls @ 20.833 mls/hr 08/09/24 13:30 08/13/24 16:08 Lipids 20% IVPB 20.83 mls/hr Q24H MORGAN Administration Insulin Aspart 2 - 5 units 08/09/24 12:00 08/14/24 11:18 Insulin Aspart (*Bkc) 100 Units/Ml SUB-Q Not Given Q6HR MORGAN Protocol Lidocaine 1 patch 08/04/24 10:25 08/14/24 08:25 Lidocaine 5% Patch TRANSDERM 1 patch DAILY MORGAN Administration Metoclopramide HCl 5 mg 08/13/24 18:00 08/14/24 05:45 Metoclopramide Hcl Inj 10 Mg/2 Ml Vial IV PUSH 5 mg Q6HR MORGAN Administration Miscellaneous Information 1 each 08/12/24 00:01 Clinamix Needs To Be Renewed Or It Will Automatically Discontinue. XX 09/11/24 00:00 CLARIFY MORGAN Naloxone HCl 0.1 mg 08/08/24 05:45 Naloxone Hcl 0.4 Mg/Ml Vial IV PUSH Q2M PRN Opiate Reversal Ondansetron HCl 4 mg 08/03/24 15:38 08/07/24 20:18 Ondansetron Inj 4 Mg/2 Ml Vial IV PUSH 4 mg Q4H PRN Administration Nausea Pantoprazole Sodium 40 mg 08/12/24 21:00 08/14/24 08:26 Pantoprazole Sodium Iv 40 Mg Vial IV PUSH 40 mg Q12HR MORGAN Administration Phenytoin Sodium 225 mg 08/07/24 21:15 08/14/24 08:37 Phenytoin Sod 250 Mg/5 Ml Vial (*Bkc) IV PUSH 225 mg Q12HR MORGAN Administration Sodium Chloride 20 ml 08/06/24 23:57 08/07/24 06:05 Central Line Flush IV PUSH 20 ml PRN PRN Administration after blood draws Sodium Chloride 10 ml 08/06/24 23:57 Central Line Flush IV PUSH PRN PRN with TPN bag changes Sodium Chloride 10 ml 08/07/24 06:00 08/14/24 08:34 Central Line Flush IV PUSH 10 ml Q8HR MORGNA Administration Radiology Results: ITS Impressions Abdomen X-Ray 08/08/24 05:43 Impression: NG tube in place, as above. Marked gaseous distention of several probable dilated small bowel loops. Correlate for small bowel obstruction versus ileus. Abdomen/Pelvis CT 08/08/24 06:07 Impression: Findings highly suspicious for extensive bowel ischemia, extensive small bowel and gastric pneumatosis and extensive portal venous gas. Extensive dilatation of small bowel loops and stomach with decompression of large bowel. Transition point not well delineated, but findings are highly suspicious for distal small bowel obstruction. NG tube tip at the GE junction. Further advancement of NG tube into the stomach is required for adequate placement. Small bilateral pleural effusions. Head CT 08/10/24 11:18 IMPRESSION: 1. Normal aging brain. Upper GI Series 08/10/24 13:27 IMPRESSION: Findings within the distal esophagus/proximal stomach for which prior fundoplication is suspected. Esophageal dysmotility and significant esophageal reflux is also detected. Chest X-Ray 08/13/24 16:14 IMPRESSION: Right upper extremity PICC terminates in the right atrium, consider 3 cm retraction. No focal consolidation to suggest pneumonia. Possible small bilateral pleural effusions. Labs Labs: Laboratory Results - last 24 hr 08/13/24 08/13/24 08/13/24 11:39 18:06 21:02 WBC RBC Hgb Hct MCV MCH MCHC RDW Plt Count MPV Immature Gran % (Auto) Neut % (Auto) Lymph % (Auto) [place] % (Auto) Eos % (Auto) Baso % (Auto) Lymph # (Auto) [place] # (Auto) Eos # (Auto) Baso # (Auto) Abs Immat Gran (auto) Absolute Neuts (auto) Absolute Nucleated RBC Nucleated RBC % Sodium Potassium Chloride Carbon Dioxide Anion Gap BUN Creatinine Estim Creat Clear Calc Estimated GFR Glucose POC Capillary Glucose 121 H 126 H Calcium Phosphorus Triglycerides Urine Color Yellow Urine Appearance Clear Urine pH 7.5 Ur Specific [place] 1.021 Urine Protein Trace Urine Glucose (UA) Negative Urine Ketones Negative Ur Blood (Man) Negative Urine Nitrate Negative Urine Bilirubin Negative Urine Urobilinogen 0.2 Ur Leukocyte Esterase Negative Urine RBC 0-2 Urine WBC 0-5 Ur Squamous Epith Cells None seen Urine Bacteria None seen Urine Casts 0-2 08/14/24 08/14/24 08/14/24 04:52 06:23 06:33 WBC 12.5 H RBC 3.09 L Hgb 10.1 L Hct 30.7 L MCV 99.4 MCH 32.7 MCHC 32.9 RDW 13.6 Plt Count 116 L MPV 11.4 H Immature Gran % (Auto) 3.3 H Neut % (Auto) 82.0 H Lymph % (Auto) 8.6 L [place] % (Auto) 4.5 Eos % (Auto) 1.0 Baso % (Auto) 0.6 Lymph # (Auto) 1.07 [place] # (Auto) 0.6 Eos # (Auto) 0.1 Baso # (Auto) 0.1 Abs Immat Gran (auto) 0.41 H Absolute Neuts (auto) 10.2 H Absolute Nucleated RBC 0.000 Nucleated RBC % 0.0 Sodium 135 L Potassium 3.8 Chloride 103 Carbon Dioxide 26 Anion Gap 6 BUN 24 H Creatinine 0.43 L Estim Creat Clear Calc Not Reportable Estimated GFR > 60 Glucose 115 H POC Capillary Glucose 124 H Calcium 8.0 L Phosphorus 3.1 Triglycerides 87 Urine Color Urine Appearance Urine pH Ur Specific [place] Urine Protein Urine Glucose (UA) Urine Ketones Ur Blood (Man) Urine Nitrate Urine Bilirubin Urine Urobilinogen Ur Leukocyte Esterase Urine RBC Urine WBC Ur Squamous Epith Cells Urine Bacteria Urine Casts
[2024-08-14] MEDS: HYDROmorphone HCL INJ (*CRX) 1 MG/ML SYR 0.5 MG IV PUSH (11:37)
[2024-08-14 11:45] LABS: Glucose Point of Care 117 mg/dl (65-105)
[2024-08-14 12:49] LABS: MRSA (PCR) NOT DETECTED (NOT DETECTE)
[2024-08-14] MEDS: FAT EMULSIONS IV 20% 250 ML 20.83 ML IVPB (14:27)
[2024-08-14 15:03] VITALS: BP 134/62; PULSE 91; RESP 16; TEMP 37.4; O2SAT 97
[2024-08-14 15:19] VITALS: O2SAT 93
--- NOTE | 2024-08-14 16:57 | P.PNGI_ITS ---
Progress Note: A&P Assessment and Plan (1) Esophageal dysmotility: Code(s): K22.4 - Dyskinesia of esophagus Status: Acute Assessment and Plan: noted previous ramsey but did not feel any resistance with the scope and dilated up to 20 mm empirically also gastritis added iv reglan and started on TF by NGT, thus far is tolerating and better than yesterday (2) Ileus, postoperative: Code(s): K91.89 - Other postprocedural complications and disorders of digestive system; K56.7 - Ileus, unspecified Status: Acute Assessment and Plan: treatment by surgery (3) Incarcerated left inguinal hernia: Code(s): K40.30 - Unilateral inguinal hernia, with obstruction, without gangrene, not specified as recurrent Status: Acute Assessment and Plan: s/p surgery (4) Early satiety: Code(s): R68.81 - Early satiety Status: Acute (5) Malnutrition: Code(s): E46 - Unspecified protein-calorie malnutrition Status: Acute Assessment and Plan: tpn for now by surgery just started also enteral feeding (6) Small bowel obstruction: Code(s): K56.609 - Unspecified intestinal obstruction, unspecified as to partial versus complete obstruction Status: Acute Assessment and Plan: resolved (7) Gastritis: Code(s): K29.70 - Gastritis, unspecified, without bleeding Status: Acute Subjective Date/time seen: 08/14/24 16:57 Interval history: she is more comfortable today just started on TF by NGT 10 ml/h and tolerating abdomen is less distended Review of Systems Review of Systems: All systems reviewed & are unremarkable except as noted in HPI and below Exam Const: Other: chronically ill appearing HENMT: Mouth: Yes dry mucous membranes Other: NG in place. Eyes: General: appearance normal, both eyes and all related structures Neck: Neck: supple Resp: Effort & Inspection: normal respiratory effort Auscultation: clear to auscultation bilaterally Cardio: Rate: regular rate Rhythm: regular rhythm GI: Inspection: distended Other: decreased BS, less distended G-tube in place Skin: General skin exam: normal color Neuro: Speech: normal speech Extrem: General: normal to inspection Psych: Mental Status: mental status grossly normal Objective Data Vital Signs Vital Signs: Vital Signs - 24 hr 08/13/24 20:00 08/13/24 21:17 08/14/24 05:10 Temperature 98.9 F 97.7 F Pulse Rate 95 90 Respiratory Rate 16 16 Blood Pressure 112/82 125/59 L Pulse Oximetry 98 98 98 Oxygen Delivery Nasal Cannula Oxygen Flow Rate 4 08/14/24 08:34 08/14/24 15:03 08/14/24 15:19 Temperature 99.3 F Pulse Rate 91 Respiratory Rate 16 Blood Pressure 134/62 Pulse Oximetry 98 97 93 Oxygen Delivery Nasal Cannula Nasal Cannula Oxygen Flow Rate 4 4 Intake/Output Intake/Output: Intake & Output 08/11/24 08/12/24 08/13/24 08/14/24 23:59 23:59 23:59 23:59 Intake Total 1586.7 1852.5 1216.7 1341.7 Output Total 2475 500 1625 1625 Balance -888.3 1352.5 -408.3 -283.3 Meds/Results Medications: Active Medications Generic Name Dose Route Start Last Admin Trade Name Freq PRN Reason Stop Dose Admin Bisacodyl 10 mg 08/15/24 09:00 Bisacodyl 10 Mg Suppository RECTAL QAM MORGAN Dextrose 12.5 gm 08/09/24 07:57 Dextrose 50% 25 Gm/50 Ml Syringe IV PUSH PRN PRN Hypoglycemia Protocol Enoxaparin Sodium 40 mg 08/05/24 09:00 08/14/24 08:34 Enoxaparin 40 Mg/0.4 Ml Syringe SUB-Q Not Given DAILY MORGAN Glucagon 1 mg 08/09/24 07:57 Glucagon For Inj 1 Mg Vial IM PRN PRN Hypoglycemia Protocol Glucose 15 gm 08/09/24 07:57 Glucose Oral Gel 15 Gm Of Glucse In 37.5 Gm Tube PO PRN PRN Hypoglycemia Protocol Hydromorphone HCl 0.5 mg 08/09/24 11:55 08/14/24 11:37 Hydromorphone Hcl Inj (*Crx) 1 Mg/Ml Syr IV PUSH 0.5 mg Q2H PRN Administration Pain Rated 7-10 Piperacillin/Tazobactam/Dextrose 3.375 gm in 50 mls @ 100 mls/hr 08/08/24 10:05 08/14/24 11:46 Zosyn 3.375 Gm/Ns 50 Ml IVPB 100 mls/hr Q6HR MORGAN Administration Dextrose 1,000 mls @ 100 mls/hr 08/09/24 07:57 Dextrose 5% 1,000 Ml IVPB PRN PRN Hypoglycemia Protocol Dextrose 1,000 mls @ 50 mls/hr 08/09/24 12:28 Dextrose 10% IV CONT .Q20H PRN if PN is interrupted Multivitamins 1.25 ml/ 1,002.5 mls @ 50 mls/hr 08/09/24 13:30 08/14/24 05:35 Multivitamins 1.25 ml/ Amino IV CONT 50 mls/hr Acids/Electrolytes/Dextrose .Q20H3M MORGAN Administration Protocol Fat Emulsion Intravenous 250 mls @ 20.833 mls/hr 08/09/24 13:30 08/14/24 14:27 Lipids 20% IVPB 20.83 mls/hr Q24H MORGAN Administration Insulin Aspart 2 - 5 units 08/09/24 12:00 08/14/24 12:20 Insulin Aspart (*Bkc) 100 Units/Ml SUB-Q Not Given Q6HR MORGAN Protocol Lidocaine 1 patch 08/04/24 10:25 08/14/24 08:25 Lidocaine 5% Patch TRANSDERM 1 patch DAILY MORGAN Administration Metoclopramide HCl 5 mg 08/13/24 18:00 08/14/24 11:43 Metoclopramide Hcl Inj 10 Mg/2 Ml Vial IV PUSH 5 mg Q6HR MORGAN Administration Miscellaneous Information 1 each 08/12/24 00:01 Clinamix Needs To Be Renewed Or It Will Automatically Discontinue. XX 08/30 08/23 00:00 CLARIFY MORGAN Naloxone HCl 0.1 mg 08/08/24 05:45 Naloxone Hcl 0.4 Mg/Ml Vial IV PUSH Q2M PRN Opiate Reversal Ondansetron HCl 4 mg 08/03/24 15:38 08/07/24 20:18 Ondansetron Inj 4 Mg/2 Ml Vial IV PUSH 4 mg Q4H PRN Administration Nausea Pantoprazole Sodium 40 mg 08/12/24 21:00 08/14/24 08:26 Pantoprazole Sodium Iv 40 Mg Vial IV PUSH 40 mg Q12HR MOGRAN Administration Phenytoin Sodium 225 mg 08/07/24 21:15 08/14/24 08:37 Phenytoin Sod 250 Mg/5 Ml Vial (*Bkc) IV PUSH 225 mg Q12HR MORGAN Administration Sodium Chloride 20 ml 08/06/24 23:57 08/07/24 06:05 Central Line Flush IV PUSH 20 ml PRN PRN Administration after blood draws Sodium Chloride 10 ml 08/06/24 23:57 Central Line Flush IV PUSH PRN PRN with TPN bag changes Sodium Chloride 10 ml 08/07/24 06:00 08/14/24 14:29 Central Line Flush IV PUSH 10 ml Q8HR MORGAN Administration Radiology Results: ITS Impressions Abdomen X-Ray 08/08/24 05:43 Impression: NG tube in place, as above. Marked gaseous distention of several probable dilated small bowel loops. Correlate for small bowel obstruction versus ileus. Abdomen/Pelvis CT 08/08/24 06:07 Impression: Findings highly suspicious for extensive bowel ischemia, extensive small bowel and gastric pneumatosis and extensive portal venous gas. Extensive dilatation of small bowel loops and stomach with decompression of large bowel. Transition point not well delineated, but findings are highly suspicious for distal small bowel obstruction. NG tube tip at the GE junction. Further advancement of NG tube into the stomach is required for adequate placement. Small bilateral pleural effusions. Head CT 08/10/24 11:18 IMPRESSION: 1. Normal aging brain. Upper GI Series 08/10/24 13:27 IMPRESSION: Findings within the distal esophagus/proximal stomach for which prior fundoplication is suspected. Esophageal dysmotility and significant esophageal reflux is also detected. Chest X-Ray 08/13/24 16:14 IMPRESSION: Right upper extremity PICC terminates in the right atrium, consider 3 cm retraction. No focal consolidation to suggest pneumonia. Possible small bilateral pleural effusions. Labs Labs: Laboratory Results - last 24 hr 08/13/24 08/13/24 08/14/24 18:06 21:02 04:52 WBC RBC Hgb Hct MCV MCH MCHC RDW Plt Count MPV Immature Gran % (Auto) Neut % (Auto) Lymph % (Auto) [place] % (Auto) Eos % (Auto) Baso % (Auto) Lymph # (Auto) [place] # (Auto) Eos # (Auto) Baso # (Auto) Abs Immat Gran (auto) Absolute Neuts (auto) Absolute Nucleated RBC Nucleated RBC % Sodium Potassium Chloride Carbon Dioxide Anion Gap BUN Creatinine Estim Creat Clear Calc Estimated GFR Glucose POC Capillary Glucose 126 H 124 H Calcium Phosphorus Triglycerides Urine Color Yellow Urine Appearance Clear Urine pH 7.5 Ur Specific [place] 1.021 Urine Protein Trace Urine Glucose (UA) Negative Urine Ketones Negative Ur Blood (Man) Negative Urine Nitrate Negative Urine Bilirubin Negative Urine Urobilinogen 0.2 Ur Leukocyte Esterase Negative Urine RBC 0-2 Urine WBC 0-5 Ur Squamous Epith Cells None seen Urine Bacteria None seen Urine Casts 0-2 Nasal MRSA (PCR) 08/14/24 08/14/24 08/14/24 06:23 06:33 11:17 WBC 12.5 H RBC 3.09 L Hgb 10.1 L Hct 30.7 L MCV 99.4 MCH 32.7 MCHC 32.9 RDW 13.6 Plt Count 116 L MPV 11.4 H Immature Gran % (Auto) 3.3 H Neut % (Auto) 82.0 H Lymph % (Auto) 8.6 L [place] % (Auto) 4.5 Eos % (Auto) 1.0 Baso % (Auto) 0.6 Lymph # (Auto) 1.07 [place] # (Auto) 0.6 Eos # (Auto) 0.1 Baso # (Auto) 0.1 Abs Immat Gran (auto) 0.41 H Absolute Neuts (auto) 10.2 H Absolute Nucleated RBC 0.000 Nucleated RBC % 0.0 Sodium 135 L Potassium 3.8 Chloride 103 Carbon Dioxide 26 Anion Gap 6 BUN 24 H Creatinine 0.43 L Estim Creat Clear Calc Not Reportable Estimated GFR > 60 Glucose 115 H POC Capillary Glucose Calcium 8.0 L Phosphorus 3.1 Triglycerides 87 Urine Color Urine Appearance Urine pH Ur Specific [place] Urine Protein Urine Glucose (UA) Urine Ketones Ur Blood (Man) Urine Nitrate Urine Bilirubin Urine Urobilinogen Ur Leukocyte Esterase Urine RBC Urine WBC Ur Squamous Epith Cells Urine Bacteria Urine Casts Nasal MRSA (PCR) Not detected 08/14/24 11:20 WBC RBC Hgb Hct MCV MCH MCHC RDW Plt Count MPV Immature Gran % (Auto) Neut % (Auto) Lymph % (Auto) [place] % (Auto) Eos % (Auto) Baso % (Auto) Lymph # (Auto) [place] # (Auto) Eos # (Auto) Baso # (Auto) Abs Immat Gran (auto) Absolute Neuts (auto) Absolute Nucleated RBC Nucleated RBC % Sodium Potassium Chloride Carbon Dioxide Anion Gap BUN Creatinine Estim Creat Clear Calc Estimated GFR Glucose POC Capillary Glucose 117 H Calcium Phosphorus Triglycerides Urine Color Urine Appearance Urine pH Ur Specific [place] Urine Protein Urine Glucose (UA) Urine Ketones Ur Blood (Man) Urine Nitrate Urine Bilirubin Urine Urobilinogen Ur Leukocyte Esterase Urine RBC Urine WBC Ur Squamous Epith Cells Urine Bacteria Urine Casts Nasal MRSA (PCR)
[2024-08-14 18:10] LABS: Glucose Point of Care 112 mg/dl (65-105)
[2024-08-14 20:00] VITALS: PULSE 91; RESP 16; O2SAT 93
[2024-08-14] MEDS: ONDANSETRON INJ 4 MG/2 ML VIAL IV PUSH (21:22)
[2024-08-15] VITALS (14 sets, daily range): BP systolic 110–157; BP diastolic 58–73; PULSE 80–101; RESP 12–30; TEMP 36.6–37.2; O2SAT 94–100
[2024-08-15 00:20] LABS: Glucose Point of Care 120 mg/dl (65-105)
[2024-08-15] MEDS: PIPERACILLN/TAZ 3.375GM/NS50ML 3.375 GM/50 ML BAG IVPB ×4 (00:40→17:46)
[2024-08-15] MEDS: METOCLOPRAMIDE HCL INJ 10 MG/2 ML VIAL 5 MG IV PUSH ×4 (00:40→17:44)
[2024-08-15] MEDS: AMINO ACIDS 5%/D15W/E-LYTES/CA 1,000 ML with MULTIVITAMINS-12 INJ VIAL 1 1.25 ML, MULTI... 50 ML IV CONT (02:05)
[2024-08-15 04:23] LABS: Glucose Point of Care 141 mg/dl (65-105)
[2024-08-15 04:59] LABS: Basophils Percent Auto 0.2 % (0.2-1.2); Eosinophils Absolute Auto 0.1 K/mm3 (0-0.3); Eosinophils Percent Auto 0.9 % (0-4.4); Hematocrit 28.2 % (37.0-47.0); Hemoglobin 9.4 g/dL (12.0-15.0); Immature Granulocyte Absolute 0.38 K/mm3 (0.00-0.031); Lymphocytes Absolute Auto 0.87 K/mm3 (0.9-3.2); Lymphocytes Percent Auto 6.8 % (18.3-44.2); Mean Corpuscular HGB Conc 33.3 g/dl (32-36); Mean Corpuscular Hemoglobin 32.8 pg (26-34); Mean Corpuscular Volume 98.3 fl (80-100); Monocytes Absolute Auto 0.7 K/mm3 (0.1-0.6); Monocytes Percent Auto 5.4 % (2.6-8.5); Neutrophils Absolute Auto 10.7 K/mm3 (1.3-6.7); Neutrophils Percent Auto 83.7 % (45.5-73.1); Platelet Count Result 190 k/mm3 (150-375); Red Blood Count 2.87 M/mm3 (4.2-5.4); White Blood Count 12.8 K/mm3 (4.5-10.0)
[2024-08-15] MEDS: CENTRAL LINE FLUSH 10 ML IV PUSH ×3 (05:05→20:55)
[2024-08-15 05:07] LABS: INR 1.2; Prothrombin Time 15.6 Seconds (11.1-14.7)
[2024-08-15 05:09] LABS: Partial Thromboplastin Time 28.4 Seconds (22.3-36.8)
[2024-08-15 05:13] LABS: Alanine Aminotransferase 34 U/L (6-35); Albumin Level 2.9 g/dL (3.5-5.1); Alkaline Phosphatase 75 U/L (38-126); Anion Gap 6 mmol/L (4-12); Aspartate Amino Transferase 37 U/L (14-36); Bilirubin,Total 0.7 mg/dL (0.2-1.3); Blood Urea Nitrogen 21 mg/dL (7-17); Carbon Dioxide 28 mmol/L (22-30); Chloride 98 mmol/L (98-107); Estimated Glomerular Filt Rate > 60; Glucose 115 mg/dL (65-110); Magnesium 1.8 mg/dL (1.6-2.3); Phosphorus 3.2 mg/dL (2.5-4.5); Potassium 3.8 mmol/L (3.4-5.0); Sodium 132 mmol/L (137-145)
[2024-08-15 05:37] LABS: Transferrin 123 mg/dL (206-381)
[2024-08-15] MEDS: LIDOCAINE 5% PATCH 1 PATCH TRANSDERM ×2 (08:16→10:31)
[2024-08-15] MEDS: PANTOPRAZOLE SODIUM IV 40 MG VIAL IV PUSH ×2 (08:19→20:54)
[2024-08-15] MEDS: PHENYTOIN SOD 250 MG/5 ML 225 MG IV PUSH ×2 (08:25→20:54)
[2024-08-15] MEDS: BISACODYL 10 MG SUPPOSITORY RECTAL (08:31)
[2024-08-15] MEDS: ENOXAPARIN 40 MG/0.4 ML SYRINGE SUB-Q (10:32)
[2024-08-15] MEDS: IPRATROPIUM 0.5 MG/ALBUTEROL SULFATE 2.5 MG AMPUL.NEB 3 ML INHALATION ×3 (11:04→19:54)
--- NOTE | 2024-08-15 12:02 | PCNFU ---
Addendum entered by Mariela Joshua RD, LDN 08/15/24 13:28: Original Note: Nutrition Follow-Up Complete: Altered GI function as related to SBO/Ileus as evidenced by TPN. Meet estimated nutritional needs. - Not meet estimated needs with tube feeding at this time. Not able to progress Goal: Pt current nutrition is Jevity 1.5 @ 20 ml/h. Nutrition recommendation: Advancement per MD. Agree with orders of Jevity 1.5 @ 20 ml/h. GOAL RATE JEVITY 1.2 @ 40 ML/H: 1320 kcal, 56 g protein, 670 ml free water Last recorded weight is 57.8 kg. Bowel Motility: +2 BMs 08/15/24 Labs Reviewed: Hgb 9.7, Hct 28.2, Alb 2.9, Na 132, BUN 21, Cre 0.44 Meds Noted: Protonix, zosyn, reglan, lovenox Skin: No pressure Additional Notes: Having 150 ml residuals this morning after 4 hours. RN did not refeed. Orders to hold tube feeding, do not advance rate, and recheck in 2 hours. Communication with provider, restarting TPN @ 50 ml/h to provide 1352 kcal, 60 g protein, 1450 ml total volume. Will monitor weight, labs, skin, diet orders, meds every Thursday and Thursday. Original Note: Nutrition Follow-Up Complete: Altered GI function as related to SBO/Ileus as evidenced by TPN. Meet estimated nutritional needs. - Not meet estimated needs with tube feeding at this time. Not able to progress Goal: Pt current nutrition is Jevity 1.5 @ 20 ml/h. Nutrition recommendation: Advancement per MD. Agree with orders of Jevity 1.5 @ 20 ml/h Last recorded weight is 57.8 kg. Bowel Motility: +2 BMs 08/15/24 Labs Reviewed: Hgb 9.7, Hct 28.2, Alb 2.9, Na 132, BUN 21, Cre 0.44 Meds Noted: Protonix, zosyn, reglan, lovenox Skin: No pressure Additional Notes: Having 150 ml residuals this morning after 4 hours. RN did not refeed. Orders to hold tube feeding, do not advance rate, and recheck in 2 hours. Agree with orders Will monitor weight, labs, skin, diet orders, meds every Thursday and Thursday.
[2024-08-15 12:47] LABS: Glucose Point of Care 109 mg/dl (65-105)
[2024-08-15] MEDS: FAT EMULSIONS IV 20% 250 ML 20.83 ML IVPB (12:55)
--- NOTE | 2024-08-15 13:18 | PM.PNGS ---
Progress Note: A&P Assessment and Plan (1) Ileus, postoperative: Code(s): K91.89 - Other postprocedural complications and disorders of digestive system; K56.7 - Ileus, unspecified Status: Acute Assessment and Plan: Abdomen appears more distended today, but she did have a bowel movement this morning after the dulcolax suppository. No abdominal pain or nausea. Tube feedings at 20 cc/hr with a residual of 150 cc this morning. Will hold tube feedings for a few hours and order a KUB now. May resume tube feedings later today. Continue TPN until she is able to tolerate tube feedings closer to goal rate. Continue Reglan. Will keep the NG tube clamped and in place for now in case it is needed for decompression. WBC count went up to 14.3 over the weekend and is trending down to 12.8. She is afebrile and UA was negative. CXR repeated today that showed opacification in the right lung base c/w atelectasis vs pneumonia. Continue IV Zosyn today and repeat labs tomorrow. Management of possible HAP by Hospitalist for any adjustment of antibiotics. (2) Small bowel obstruction: Code(s): K56.609 - Unspecified intestinal obstruction, unspecified as to partial versus complete obstruction Status: Acute Assessment and Plan: Resolved (3) Incarcerated left inguinal hernia: Code(s): K40.30 - Unilateral inguinal hernia, with obstruction, without gangrene, not specified as recurrent Status: Acute Assessment and Plan: Status post open incarcerated femoral hernia repair without mesh. (4) Malnutrition: Code(s): E46 - Unspecified protein-calorie malnutrition Status: Acute Assessment and Plan: Continue on TPN for now for malnutrition until tolerating tube feedings. I spoke with the dietitian today who will provide recommendations for tube feeding goal rate. Plan I have discussed the patient's case and plan of care with Dr. Jett. Subjective Subjective Date/Time Seen: 08/15/24 11:38 Patient reports: flatus, bowel movement and afebrile Interval history: Patient sitting up in chair with her daughter at the bedside. She had a suppository this morning and had a good BM after the suppository. She denies any nausea, vomiting, or abdominal pain. Nursing feels her abdomen looks more distended today. She has tube feedings at 20 cc/hr and tolerated this overnight, but nursing checked residual while in the room and she was at 150cc. Exam Const: General: comfortable and no acute distress Nutritional Appearance: thin Orientation/consciousness: patient oriented x3 GI: Other: Abdomen is moderately distended but soft and nontender. Midline incision with whitley intact, no erythema or drainage. Gastrostomy tube with tube feedings running, scant yellow drainage at the skin around the tube, no erythema. Fairly good bowel sounds. Objective Data Vital Signs Vital Signs: Vital Signs - 24 hr 08/14/24 15:03 08/14/24 15:19 08/14/24 20:00 Temperature 99.3 F Pulse Rate 91 91 Respiratory Rate 16 16 Blood Pressure 134/62 Pulse Oximetry 97 93 93 Oxygen Delivery Nasal Cannula Nasal Cannula Oxygen Flow Rate 4 4 Fraction of Inspired Oxygen 36 08/15/24 00:00 08/15/24 08:00 08/15/24 08:19 Temperature 97.8 F Pulse Rate 93 83 Respiratory Rate 12 12 Blood Pressure 126/61 110/64 Pulse Oximetry 97 100 98 Oxygen Delivery Nasal Cannula Oxygen Flow Rate 4 Fraction of Inspired Oxygen 08/15/24 11:04 08/15/24 11:04 Temperature Pulse Rate 80 Respiratory Rate 20 Blood Pressure Pulse Oximetry 94 Oxygen Delivery Nasal Cannula Oxygen Flow Rate 4 Fraction of Inspired Oxygen 36 Intake/Output Intake/Output: Intake & Output 08/12/24 08/13/24 08/14/24 08/15/24 23:59 23:59 23:59 23:59 Intake Total 1852.5 1216.7 1491.7 1352.5 Output Total 500 1625 2225 400 Balance 1352.5 -408.3 -733.3 952.5 Meds/Results Medications: Active Medications Generic Name Dose Route Start Last Admin Trade Name Freq PRN Reason Stop Dose Admin Albuterol/Ipratropium 3 ml 08/15/24 14:00 Ipratropium 0.5 Mg/Albuterol Sulfate 2.5 Mg Ampul.Neb 3 Ml INHALATION Q6HRT MORGAN Bisacodyl 10 mg 08/15/24 09:00 08/15/24 08:31 Bisacodyl 10 Mg Suppository RECTAL 10 mg QAM MORGAN Administration Dextrose 12.5 gm 08/09/24 07:57 Dextrose 50% 25 Gm/50 Ml Syringe IV PUSH PRN PRN Hypoglycemia Protocol Enoxaparin Sodium 40 mg 08/05/24 09:00 08/15/24 10:32 Enoxaparin 40 Mg/0.4 Ml Syringe SUB-Q 40 mg DAILY MORGAN Administration Glucagon 1 mg 08/09/24 07:57 Glucagon For Inj 1 Mg Vial IM PRN PRN Hypoglycemia Protocol Glucose 15 gm 08/09/24 07:57 Glucose Oral Gel 15 Gm Of Glucse In 37.5 Gm Tube PO PRN PRN Hypoglycemia Protocol Hydromorphone HCl 0.5 mg 08/09/24 11:55 08/14/24 11:37 Hydromorphone Hcl Inj (*Crx) 1 Mg/Ml Syr IV PUSH 0.5 mg Q2H PRN Administration Pain Rated 7-10 Piperacillin/Tazobactam/Dextrose 3.375 gm in 50 mls @ 100 mls/hr 08/08/24 10:05 08/15/24 12:24 Zosyn 3.375 Gm/Ns 50 Ml IVPB 100 mls/hr Q6HR MORGAN Administration Dextrose 1,000 mls @ 100 mls/hr 08/09/24 07:57 Dextrose 5% 1,000 Ml IVPB PRN PRN Hypoglycemia Protocol Dextrose 1,000 mls @ 50 mls/hr 08/09/24 12:28 Dextrose 10% IV CONT .Q20H PRN if PN is interrupted Multivitamins 1.25 ml/ 1,002.5 mls @ 50 mls/hr 08/09/24 13:30 08/15/24 02:05 Multivitamins 1.25 ml/ Amino IV CONT 50 mls/hr Acids/Electrolytes/Dextrose .Q20H3M MORGAN Administration Protocol Fat Emulsion Intravenous 250 mls @ 20.833 mls/hr 08/09/24 13:30 08/15/24 12:55 Lipids 20% IVPB 20.83 mls/hr Q24H MORGAN Administration Insulin Aspart 2 - 5 units 08/09/24 12:00 08/15/24 12:52 Insulin Aspart (*Bkc) 100 Units/Ml SUB-Q Not Given Q6HR M[facility]GAN Protocol Lidocaine 1 patch 08/04/24 10:25 08/15/24 10:31 Lidocaine 5% Patch TRANSDERM 1 patch DAILY MORGAN Administration Lidocaine 1 patch 08/15/24 09:00 08/15/24 12:52 Lidocaine 5% Patch TRANSDERM Not Given DAILY M[facility]GAN Metoclopramide HCl 5 mg 08/13/24 18:00 08/15/24 12:19 Metoclopramide Hcl Inj 10 Mg/2 Ml Vial IV PUSH 5 mg Q6HR MORGAN Administration Miscellaneous Information 1 each 08/12/24 00:01 Clinamix Needs To Be Renewed Or It Will Automatically Discontinue. XX 09/11/24 00:00 CLARIFY MORGAN Naloxone HCl 0.1 mg 08/08/24 05:45 Naloxone Hcl 0.4 Mg/Ml Vial IV PUSH Q2M PRN Opiate Reversal Ondansetron HCl 4 mg 08/03/24 15:38 08/14/24 21:22 Ondansetron Inj 4 Mg/2 Ml Vial IV PUSH 4 mg Q4H PRN Administration Nausea Pantoprazole Sodium 40 mg 08/12/24 21:00 08/15/24 08:19 Pantoprazole Sodium Iv 40 Mg Vial IV PUSH 40 mg Q12HR [facility]GAN Administration Phenytoin Sodium 225 mg 08/07/24 21:15 08/15/24 08:25 Phenytoin Sod 250 Mg/5 Ml Vial (*[facility]) IV PUSH 225 mg Q12HR MORGAN Administration Sodium Chloride 20 ml 08/06/24 23:57 08/07/24 06:05 Central Line Flush IV PUSH 20 ml PRN PRN Administration after blood draws Sodium Chloride 10 ml 08/06/24 23:57 Central Line Flush IV PUSH PRN PRN with TPN bag changes Sodium Chloride 10 ml 08/07/24 06:00 08/15/24 05:05 Central Line Flush IV PUSH 10 ml Q8HR MORGAN Administration Radiology Results: ITS Impressions Abdomen X-Ray 08/08/24 05:43 Impression: NG tube in place, as above. Marked gaseous distention of several probable dilated small bowel loops. Correlate for small bowel obstruction versus ileus. Abdomen/Pelvis CT 08/08/24 06:07 Impression: Findings highly suspicious for extensive bowel ischemia, extensive small bowel and gastric pneumatosis and extensive portal venous gas. Extensive dilatation of small bowel loops and stomach with decompression of large bowel. Transition point not well delineated, but findings are highly suspicious for distal small bowel obstruction. NG tube tip at the GE junction. Further advancement of NG tube into the stomach is required for adequate placement. Small bilateral pleural effusions. Head CT 08/10/24 11:18 IMPRESSION: 1. Normal aging brain. Upper GI Series 08/10/24 13:27 IMPRESSION: Findings within the distal esophagus/proximal stomach for which prior fundoplication is suspected. Esophageal dysmotility and significant esophageal reflux is also detected. Chest X-Ray 08/15/24 10:10 IMPRESSION: Minimal opacification the right lung base suggestive of atelectasis versus pneumonia. Labs Labs: Laboratory Results - last 24 hr 08/14/24 08/15/24 08/15/24 18:06 00:08 04:21 WBC RBC Hgb Hct MCV MCH MCHC RDW Plt Count MPV Immature Gran % (Auto) Neut % (Auto) Lymph % (Auto) [place] % (Auto) Eos % (Auto) Baso % (Auto) Lymph # (Auto) [place] # (Auto) Eos # (Auto) Baso # (Auto) Abs Immat Gran (auto) Absolute Neuts (auto) Absolute Nucleated RBC Nucleated RBC % PT INR APTT Sodium Potassium Chloride Carbon Dioxide Anion Gap BUN Creatinine Estim Creat Clear Calc Estimated GFR Glucose POC Capillary Glucose 112 H 120 H 141 H Calcium Phosphorus Magnesium Transferrin Total Bilirubin AST ALT Alkaline Phosphatase Total Protein Albumin 08/15/24 08/15/24 04:49 12:43 WBC 12.8 H RBC 2.87 L Hgb 9.4 L Hct 28.2 L MCV 98.3 MCH 32.8 MCHC 33.3 RDW 13.0 Plt Count 190 D MPV 10.0 Immature Gran % (Auto) 3.0 H Neut % (Auto) 83.7 H Lymph % (Auto) 6.8 L [place] % (Auto) 5.4 Eos % (Auto) 0.9 Baso % (Auto) 0.2 Lymph # (Auto) 0.87 L [place] # (Auto) 0.7 H Eos # (Auto) 0.1 Baso # (Auto) 0.0 Abs Immat Gran (auto) 0.38 H Absolute Neuts (auto) 10.7 H Absolute Nucleated RBC 0.000 Nucleated RBC % 0.0 PT 15.6 H INR 1.2 APTT 28.4 Sodium 132 L Potassium 3.8 Chloride 98 Carbon Dioxide 28 Anion Gap 6 BUN 21 H Creatinine 0.44 L Estim Creat Clear Calc Not Reportable Estimated GFR > 60 Glucose 115 H POC Capillary Glucose 109 H Calcium 8.0 L Phosphorus 3.2 Magnesium 1.8 Transferrin 123 L Total Bilirubin 0.7 AST 37 H ALT 34 Alkaline Phosphatase 75 Total Protein 6.0 L Albumin 2.9 L
--- NOTE | 2024-08-15 13:28 | PCDIET ---
Tube feeding recommendations: Jevity 1.5 @ 20 ml/h. GOAL RATE JEVITY 1.2 @ 40 ML/H: 1320 kcal, 56 g protein, 670 ml free water
--- NOTE | 2024-08-15 13:59 | P.PNIM_ITS ---
Progress Note: A&P Assessment and Plan (1) Small bowel obstruction: Code(s): K56.609 - Unspecified intestinal obstruction, unspecified as to partial versus complete obstruction Status: Acute Assessment and Plan: Status post 08/03 Open incarcerated left femoral hernia repair without mesh 08/08 Exploratory laparotomy, gastrostomy tube placement Bowel rest On Zosyn GI was consulted, EGD on 08/12/2024 No significant finding on EGD other than intact gastrostomy tube and gastritis. continue to keep npo with NG tube and feeds Add iv vancomycin (2) Ileus, postoperative: Code(s): K91.89 - Other postprocedural complications and disorders of digestive system; K56.7 - Ileus, unspecified Status: Acute Assessment and Plan: See above (3) Incarcerated left inguinal hernia: Code(s): K40.30 - Unilateral inguinal hernia, with obstruction, without gangrene, not specified as recurrent Status: Acute Assessment and Plan: See above (4) EULALIO (acute kidney injury): Code(s): N17.9 - Acute kidney failure, unspecified Status: Acute Assessment and Plan: creat is stable (5) Sepsis: Code(s): A41.9 - Sepsis, unspecified organism Status: Acute Assessment and Plan: Continue Zosyn per surgery UA was unremarkable 08/08: blood cultures are negative so far CXr shows pnemonia add iv vancomycin (6) Seizures: Code(s): R56.9 - Unspecified convulsions Status: Chronic Assessment and Plan: Continue IV phenytoin (7) Electrolyte abnormality: Code(s): E87.8 - Other disorders of electrolyte and fluid balance, not elsewhere classified Status: Acute Assessment and Plan: Replace potassium (8) Pulmonary edema: Code(s): J81.1 - Chronic pulmonary edema Status: Acute Assessment and Plan: Chest x-ray shows pulmonary edema. Elevated BNP Echo reviewed lasix x1 today for SOB and wheezy lungs (9) Leukocytosis: Code(s): D72.829 - Elevated white blood cell count, unspecified Status: Acute Assessment and Plan: pt on iv zosyn and iv vancomycin added for possible aspiration pneumonia watch cultures Subjective Date/time seen: 08/15/24 13:59 Interval history: Pt SOB at rest and with wheezy lungs today Pt admitted with SBO partial conservative management started on tube feeds yesterday rate is 20 cc per hour Pt had stat CXR this am showing early pneumonia Keep npo order ABG Kailyn add IV vanc to IV zosyn lasix 20 mg iv x1 given also Watch respiratory status Review of Systems Review of Systems: SOB and wheezy lungs today Exam Narrative: General: Frail elderly lady with NG tube in situ and tube feeds Lungs/Chest: BL wheezy lungs Cardiac: RRR. Normal S1 S2. No murmurs Circulation: Palpable pedal pulses, feet are warm Abdomen: Hypoactive bowel sound. Mild tenderness to palpation, gastrostomy tube in place, incision under dressing Extremities: No clubbing or cyanosis, bilateral edema present : Khanna in place Neurologic: Follows commands. Moves all 4 extremities PERRL AO x3 Skin: No Rash Objective Data Vital Signs Vital Signs: Vital Signs - 24 hr 08/14/24 15:03 08/14/24 15:19 08/14/24 20:00 Temperature 37.4 C Pulse Rate 91 91 Respiratory Rate 16 16 Blood Pressure 134/62 Pulse Oximetry 97 93 93 Oxygen Delivery Nasal Cannula Nasal Cannula Oxygen Flow Rate 4 4 Fraction of Inspired Oxygen 36 08/15/24 00:00 08/15/24 08:00 08/15/24 08:19 Temperature 36.6 C Pulse Rate 93 83 Respiratory Rate 12 12 Blood Pressure 126/61 110/64 Pulse Oximetry 97 100 98 Oxygen Delivery Nasal Cannula Oxygen Flow Rate 4 Fraction of Inspired Oxygen 08/15/24 11:04 08/15/24 11:04 08/15/24 13:56 Temperature Pulse Rate 80 Respiratory Rate 20 Blood Pressure 157/73 H Pulse Oximetry 94 Oxygen Delivery Nasal Cannula Oxygen Flow Rate 4 Fraction of Inspired Oxygen 36 Intake/Output Intake/Output: Intake & Output 08/12/24 08/13/24 08/14/24 08/15/24 23:59 23:59 23:59 23:59 Intake Total 1852.5 1216.7 1491.7 1352.5 Output Total 500 1625 2225 400 Balance 1352.5 -408.3 -733.3 952.5 Meds/Results Medications: Active Medications Generic Name Dose Route Start Last Admin Trade Name Freq PRN Reason Stop Dose Admin Albuterol/Ipratropium 3 ml 08/15/24 14:00 Ipratropium 0.5 Mg/Albuterol Sulfate 2.5 Mg Ampul.Neb 3 Ml INHALATION Q6HRT MORGAN Bisacodyl 10 mg 08/15/24 09:00 08/15/24 08:31 Bisacodyl 10 Mg Suppository RECTAL 10 mg QAM MORGAN Administration Dextrose 12.5 gm 08/09/24 07:57 Dextrose 50% 25 Gm/50 Ml Syringe IV PUSH PRN PRN Hypoglycemia Protocol Enoxaparin Sodium 40 mg 08/05/24 09:00 08/15/24 10:32 Enoxaparin 40 Mg/0.4 Ml Syringe SUB-Q 40 mg DAILY MORGAN Administration Glucagon 1 mg 08/09/24 07:57 Glucagon For Inj 1 Mg Vial IM PRN PRN Hypoglycemia Protocol Glucose 15 gm 08/09/24 07:57 Glucose Oral Gel 15 Gm Of Glucse In 37.5 Gm Tube PO PRN PRN Hypoglycemia Protocol Hydromorphone HCl 0.5 mg 08/09/24 11:55 08/14/24 11:37 Hydromorphone Hcl Inj (*Crx) 1 Mg/Ml Syr IV PUSH 0.5 mg Q2H PRN Administration Pain Rated 7-10 Piperacillin/Tazobactam/Dextrose 3.375 gm in 50 mls @ 100 mls/hr 08/08/24 10:0 5 08/15/24 12:24 Zosyn 3.375 Gm/Ns 50 Ml IVPB 100 mls/hr Q6HR MORGAN Administration Dextrose 1,000 mls @ 100 mls/hr 08/09/24 07:57 Dextrose 5% 1,000 Ml IVPB PRN PRN Hypoglycemia Protocol Dextrose 1,000 mls @ 50 mls/hr 08/09/24 12:28 Dextrose 10% IV CONT .Q20H PRN if PN is interrupted Multivitamins 1.25 ml/ 1,002.5 mls @ 50 mls/hr 08/09/24 13:30 08/15/24 02:05 Multivitamins 1.25 ml/ Amino IV CONT 50 mls/hr Acids/Electrolytes/Dextrose .Q20H3M MORGAN Administration Protocol Fat Emulsion Intravenous 250 mls @ 20.833 mls/hr 08/09/24 13:30 08/15/24 12:55 Lipids 20% IVPB 20.83 mls/hr Q24H MORGAN Administration Insulin Aspart 2 - 5 units 08/09/24 12:00 08/15/24 12:52 Insulin Aspart (*Bkc) 100 Units/Ml SUB-Q Not Given Q6HR [facility] Protocol Lidocaine 1 patch 08/04/24 10:25 08/15/24 10:31 Lidocaine 5% Patch TRANSDERM 1 patch DAILY MORGAN Administration Lidocaine 1 patch 08/15/24 09:00 08/15/24 12:52 Lidocaine 5% Patch TRANSDERM Not Given DAILY [facility] Metoclopramide HCl 5 mg 08/13/24 18:00 08/15/24 12:19 Metoclopramide Hcl Inj 10 Mg/2 Ml Vial IV PUSH 5 mg Q6HR MORGAN Administration Miscellaneous Information 1 each 08/12/24 00:01 Clinamix Needs To Be Renewed Or It Will Automatically Discontinue. XX 09/11/24 00:00 CLARIFY MORGAN Naloxone HCl 0.1 mg 08/08/24 05:45 Naloxone Hcl 0.4 Mg/Ml Vial IV PUSH Q2M PRN Opiate Reversal Ondansetron HCl 4 mg 08/03/24 15:38 08/14/24 21:22 Ondansetron Inj 4 Mg/2 Ml Vial IV PUSH 4 mg Q4H PRN Administration Nausea Pantoprazole Sodium 40 mg 08/12/24 21:00 08/15/24 08:19 Pantoprazole Sodium Iv 40 Mg Vial IV PUSH 40 mg Q12HR MORGAN Administration Phenytoin Sodium 225 mg 08/07/24 21:15 08/15/24 08:25 Phenytoin Sod 250 Mg/5 Ml Vial (*Bkc) IV PUSH 225 mg Q12HR MORGAN Administration Sodium Chloride 20 ml 08/06/24 23:57 08/07/24 06:05 Central Line Flush IV PUSH 20 ml PRN PRN Administration after blood draws Sodium Chloride 10 ml 08/06/24 23:57 Central Line Flush IV PUSH PRN PRN with TPN bag changes Sodium Chloride 10 ml 08/07/24 06:00 08/15/24 05:05 Central Line Flush IV PUSH 10 ml Q8HR MORGAN Administration Radiology Results: ITS Impressions Abdomen/Pelvis CT 08/08/24 06:07 Impression: Findings highly suspicious for extensive bowel ischemia, extensive small bowel and gastric pneumatosis and extensive portal venous gas. Extensive dilatation of small bowel loops and stomach with decompression of large bowel. Transition point not well delineated, but findings are highly suspicious for distal small bowel obstruction. NG tube tip at the GE junction. Further advancement of NG tube into the stomach is required for adequate placement. Small bilateral pleural effusions. Head CT 08/10/24 11:18 IMPRESSION: 1. Normal aging brain. Upper GI Series 08/10/24 13:27 IMPRESSION: Findings within the distal esophagus/proximal stomach for which prior fundoplication is suspected. Esophageal dysmotility and significant esophageal reflux is also detected. Chest X-Ray 08/15/24 10:10 IMPRESSION: Minimal opacification the right lung base suggestive of atelectasis versus pneumonia. Abdomen X-Ray 08/15/24 13:47 IMPRESSION: NO ACUTE ABDOMINAL FINDINGS. Distended bowel loops with no definite evidence of obstruction. Follow-up advised. Labs Labs: Laboratory Results - last 24 hr 08/14/24 08/15/24 08/15/24 18:06 00:08 04:21 WBC RBC Hgb Hct MCV MCH MCHC RDW Plt Count MPV Immature Gran % (Auto) Neut % (Auto) Lymph % (Auto) [place] % (Auto) Eos % (Auto) Baso % (Auto) Lymph # (Auto) [place] # (Auto) Eos # (Auto) Baso # (Auto) Abs Immat Gran (auto) Absolute Neuts (auto) Absolute Nucleated RBC Nucleated RBC % PT INR APTT Sodium Potassium Chloride Carbon Dioxide Anion Gap BUN Creatinine Estim Creat Clear Calc Estimated GFR Glucose POC Capillary Glucose 112 H 120 H 141 H Calcium Phosphorus Magnesium Transferrin Total Bilirubin AST ALT Alkaline Phosphatase Total Protein Albumin 08/15/24 08/15/24 04:49 12:43 WBC 12.8 H RBC 2.87 L Hgb 9.4 L Hct 28.2 L MCV 98.3 MCH 32.8 MCHC 33.3 RDW 13.0 Plt Count 190 D MPV 10.0 Immature Gran % (Auto) 3.0 H Neut % (Auto) 83.7 H Lymph % (Auto) 6.8 L [place] % (Auto) 5.4 Eos % (Auto) 0.9 Baso % (Auto) 0.2 Lymph # (Auto) 0.87 L [place] # (Auto) 0.7 H Eos # (Auto) 0.1 Baso # (Auto) 0.0 Abs Immat Gran (auto) 0.38 H Absolute Neuts (auto) 10.7 H Absolute Nucleated RBC 0.000 Nucleated RBC % 0.0 PT 15.6 H INR 1.2 APTT 28.4 Sodium 132 L Potassium 3.8 Chloride 98 Carbon Dioxide 28 Anion Gap 6 BUN 21 H Creatinine 0.44 L Estim Creat Clear Calc Not Reportable Estimated GFR > 60 Glucose 115 H POC Capillary Glucose 109 H Calcium 8.0 L Phosphorus 3.2 Magnesium 1.8 Transferrin 123 L Total Bilirubin 0.7 AST 37 H ALT 34 Alkaline Phosphatase 75 Total Protein 6.0 L Albumin 2.9 L
[2024-08-15] MEDS: FUROSEMIDE INJ 40 MG/4 ML VIAL 20 MG IV PUSH (14:07)
[2024-08-15] MEDS: dexAMETHasone SOD PHOS INJ 10 MG/ML 1 ML VIAL IV PUSH (14:33)
[2024-08-15 14:40] LABS: Alveolar/Arterial O2 Gradient 151.4 mmHg; Base Excess ABG 2.5 mEq/l (+/-2.0); Device NASAL CANNULA; Fractional Inspired Oxygen 36 %; Modified Allen's Test Pass; Oxygen Content ABG 14.2 %vol (16.0-22.0); Oxygen Saturation ABG 93.8 % (95.0-100.0); Oxyhemoglobin 92.7 % THb (90.0-100.0); PCO2 ABG 35.9 mmHg (35.0-45.0); PO2 ABG 63.6 mmHg (80.0-100.0); PO2 FiO2 Ratio Arterial Blood 1.77 %; Site Drawn LEFT RADIAL; Total Hemoglobin 10.9 g/dL (12.0-18.0); pH ABG 7.477 (7.350-7.450)
[2024-08-15] MEDS: racEPINEPHrine 2.25% NEBU SOLN 0.5 ML VIAL.NEB INHALATION (14:42)
[2024-08-15] MEDS: racEPINEPHrine 2.25% NEBU SOLN 0.5 ML VIAL.NEB (14:42)
--- NOTE | 2024-08-15 16:19 | WPDGIPROGNO ---
Progress Note: A&P Assessment and Plan (1) Esophageal dysmotility: Code(s): K22.4 - Dyskinesia of esophagus Status: Acute Assessment and Plan: egd noted previous ramsey but did not feel any resistance and dilated up to 20 mm empirically also gastritis she is on iv reglan kub with distension but no ileus, probably resume trickle feeding again will follow as needed (2) Ileus, postoperative: Code(s): K91.89 - Other postprocedural complications and disorders of digestive system; K56.7 - Ileus, unspecified Status: Acute Assessment and Plan: treatment by surgery kub no sbo (3) Incarcerated left inguinal hernia: Code(s): K40.30 - Unilateral inguinal hernia, with obstruction, without gangrene, not specified as recurrent Status: Acute Assessment and Plan: s/p surgery (4) Early satiety: Code(s): R68.81 - Early satiety Status: Acute (5) Malnutrition: Code(s): E46 - Unspecified protein-calorie malnutrition Status: Acute Assessment and Plan: tpn for now by surgery resume enteral feeding and advance as tolerated (6) Small bowel obstruction: Code(s): K56.609 - Unspecified intestinal obstruction, unspecified as to partial versus complete obstruction Status: Acute Assessment and Plan: resolved (7) Gastritis: Code(s): K29.70 - Gastritis, unspecified, without bleeding Status: Acute Subjective Date/time seen: 08/15/24 16:19 Interval history: she was tachypneic today and better after iv steroid she had 150 ml residual by ngt but repeat down less then 50 she is more comfortable after respiratory treatment abdomen distended but had 3 BM today Review of Systems Review of Systems: All systems reviewed & are unremarkable except as noted in HPI and below Exam Const: Other: chronically ill appearing, frail elderly HENMT: Mouth: Yes dry mucous membranes Eyes: General: appearance normal, both eyes and all related structures Neck: Neck: supple Resp: Auscultation: diminished lung sounds Cardio: Rate: regular rate Rhythm: regular rhythm GI: Inspection: distended Other: decreased BS G-tube in place Skin: General skin exam: normal color Neuro: Speech: normal speech Extrem: General: normal to inspection Psych: Mental Status: mental status grossly normal Objective Data Vital Signs Vital Signs: Vital Signs - 24 hr 08/14/24 20:00 08/15/24 00:00 08/15/24 08:00 Temperature 97.8 F Pulse Rate 91 93 83 Respiratory Rate 16 12 12 Blood Pressure 126/61 110/64 Pulse Oximetry 93 97 100 Oxygen Delivery Nasal Cannula Oxygen Flow Rate 4 Fraction of Inspired Oxygen 36 08/15/24 08:19 08/15/24 11:04 08/15/24 11:04 Temperature Pulse Rate 80 Respiratory Rate 20 Blood Pressure Pulse Oximetry 98 94 Oxygen Delivery Nasal Cannula Nasal Cannula Oxygen Flow Rate 4 4 Fraction of Inspired Oxygen 36 08/15/24 12:15 08/15/24 12:50 08/15/24 13:56 Temperature Pulse Rate Respiratory Rate 28 H 30 H Blood Pressure 157/73 H Pulse Oximetry 96 95 Oxygen Delivery Oxygen Flow Rate Fraction of Inspired Oxygen 08/15/24 14:42 Temperature Pulse Rate 86 Respiratory Rate 20 Blood Pressure Pulse Oximetry Oxygen Delivery Oxygen Flow Rate Fraction of Inspired Oxygen Intake/Output Intake/Output: Intake & Output 08/12/24 08/13/24 08/14/24 08/15/24 23:59 23:59 23:59 23:59 Intake Total 1852.5 1216.7 1491.7 1352.5 Output Total 500 1625 2225 400 Balance 1352.5 -408.3 -733.3 952.5 Meds/Results Medications: Active Medications Generic Name Dose Route Start Last Admin Trade Name Freq PRN Reason Stop Dose Admin Albuterol/Ipratropium 3 ml 08/15/24 14:00 08/15/24 14:42 Ipratropium 0.5 Mg/Albuterol Sulfate 2.5 Mg Ampul.Neb 3 Ml INHALATION 3 ml Q6HRT MORGAN Administration Bisacodyl 10 mg 08/15/24 09:00 08/15/24 08:31 Bisacodyl 10 Mg Suppository RECTAL 10 mg QAM MORGAN Administration Dexamethasone Sodium Phosphate 4 mg 08/15/24 18:00 Dexamethasone Sod Phos Inj 4 Mg/Ml Vial IV PUSH Q6HR MORGAN Dextrose 12.5 gm 08/09/24 07:57 Dextrose 50% 25 Gm/50 Ml Syringe IV PUSH PRN PRN Hypoglycemia Protocol Enoxaparin Sodium 40 mg 08/05/24 09:00 08/15/24 10:32 Enoxaparin 40 Mg/0.4 Ml Syringe SUB-Q 40 mg DAILY MORGAN Administration Furosemide 40 mg 08/16/24 09:00 Furosemide 40 Mg Tablet PO DAILY MORGAN Glucagon 1 mg 08/09/24 07:57 Glucagon For Inj 1 Mg Vial IM PRN PRN Hypoglycemia Protocol Glucose 15 gm 08/09/24 07:57 Glucose Oral Gel 15 Gm Of Glucse In 37.5 Gm Tube PO PRN PRN Hypoglycemia Protocol Hydromorphone HCl 0.5 mg 08/09/24 11:55 08/14/24 11:37 Hydromorphone Hcl Inj (*Crx) 1 Mg/Ml Syr IV PUSH 0.5 mg Q2H PRN Administration Pain Rated 7-10 Piperacillin/Tazobactam/Dextrose 3.375 gm in 50 mls @ 100 mls/hr 08/08/24 10:05 08/15/24 12:24 Zosyn 3.375 Gm/Ns 50 Ml IVPB 100 mls/hr Q6HR MORGAN Administration Dextrose 1,000 mls @ 100 mls/hr 08/09/24 07:57 Dextrose 5% 1,000 Ml IVPB PRN PRN Hypoglycemia Protocol Dextrose 1,000 mls @ 50 mls/hr 08/09/24 12:28 Dextrose 10% IV CONT .Q20H PRN if PN is interrupted Multivitamins 1.25 ml/ 1,002.5 mls @ 50 mls/hr 08/09/24 13:30 08/15/24 02:05 Multivitamins 1.25 ml/ Amino IV CONT 50 mls/hr Acids/Electrolytes/Dextrose .Q20H3M MORGAN Administration Protocol Fat Emulsion Intravenous 250 mls @ 20.833 mls/hr 08/09/24 13:30 08/15/24 12:55 Lipids 20% IVPB 20.83 mls/hr Q24H MORGAN Administration Insulin Aspart 2 - 5 units 08/09/24 12:00 08/15/24 12:52 Insulin Aspart (*Bkc) 100 Units/Ml SUB-Q Not Given Q6HR MORGAN Protocol Lidocaine 1 patch 08/04/24 10:25 08/15/24 10:31 Lidocaine 5% Patch TRANSDERM 1 patch DAILY MORGAN Administration Lidocaine 1 patch 08/15/24 09:00 08/15/24 12:52 Lidocaine 5% Patch TRANSDERM Not Given DAILY MORGAN Metoclopramide HCl 5 mg 08/13/24 18:00 08/15/24 12:19 Metoclopramide Hcl Inj 10 Mg/2 Ml Vial IV PUSH 5 mg Q6HR MORGAN Administration Miscellaneous Information 1 each 08/12/24 00:01 Clinamix Needs To Be Renewed Or It Will Automatically Discontinue. XX 09/11/24 00:00 CLARIFY MORGAN Naloxone HCl 0.1 mg 08/08/24 05:45 Naloxone Hcl 0.4 Mg/Ml Vial IV PUSH Q2M PRN Opiate Reversal Ondansetron HCl 4 mg 08/03/24 15:38 08/14/24 21:22 Ondansetron Inj 4 Mg/2 Ml Vial IV PUSH 4 mg Q4H PRN Administration Nausea Pantoprazole Sodium 40 mg 08/12/24 21:00 08/15/24 08:19 Pantoprazole Sodium Iv 40 Mg Vial IV PUSH 40 mg Q12HR MORGAN Administration Phenytoin Sodium 225 mg 08/07/24 21:15 08/15/24 08:25 Phenytoin Sod 250 Mg/5 Ml Vial (*Bkc) IV PUSH 225 mg Q12HR MORGAN Administration Sodium Chloride 20 ml 08/06/24 23:57 08/07/24 06:05 Central Line Flush IV PUSH 20 ml PRN PRN Administration after blood draws Sodium Chloride 10 ml 08/06/24 23:57 Central Line Flush IV PUSH PRN PRN with TPN bag changes Sodium Chloride 10 ml 08/07/24 06:00 08/15/24 14:08 Central Line Flush IV PUSH 10 ml Q8HR MORGAN Administration Radiology Results: ITS Impressions Abdomen/Pelvis CT 08/08/24 06:07 Impression: Findings highly suspicious for extensive bowel ischemia, extensive small bowel and gastric pneumatosis and extensive portal venous gas. Extensive dilatation of small bowel loops and stomach with decompression of large bowel. Transition point not well delineated, but findings are highly suspicious for distal small bowel obstruction. NG tube tip at the GE junction. Further advancement of NG tube into the stomach is required for adequate placement. Small bilateral pleural effusions. Head CT 08/10/24 11:18 IMPRESSION: 1. Normal aging brain. Upper GI Series 08/10/24 13:27 IMPRESSION: Findings within the distal esophagus/proximal stomach for which prior fundoplication is suspected. Esophageal dysmotility and significant esophageal reflux is also detected. Chest X-Ray 08/15/24 10:10 IMPRESSION: Minimal opacification the right lung base suggestive of atelectasis versus pneumonia. Abdomen X-Ray 08/15/24 13:47 IMPRESSION: NO ACUTE ABDOMINAL FINDINGS. Distended bowel loops with no definite evidence of obstruction. Follow-up advised. Labs Labs: Laboratory Results - last 24 hr 08/14/24 08/15/24 08/15/24 18:06 00:08 04:21 WBC RBC Hgb Hct MCV MCH MCHC RDW Plt Count MPV Immature Gran % (Auto) Neut % (Auto) Lymph % (Auto) [place] % (Auto) Eos % (Auto) Baso % (Auto) Lymph # (Auto) [place] # (Auto) Eos # (Auto) Baso # (Auto) Abs Immat Gran (auto) Absolute Neuts (auto) Absolute Nucleated RBC Nucleated RBC % PT INR APTT Puncture Site ABG pH ABG pCO2 ABG pO2 ABG PO2/FiO2 Ratio ABG HCO3 ABG O2 Saturation ABG O2 Content ABG Base Excess A-a Gradient Oxyhemoglobin Total Hemoglobin O2 Delivery Device O2 Liters/Min FiO2 Sodium Potassium Chloride Carbon Dioxide Anion Gap BUN Creatinine Estim Creat Clear Calc Estimated GFR Glucose POC Capillary Glucose 112 H 120 H 141 H Calcium Phosphorus Magnesium Transferrin Total Bilirubin AST ALT Alkaline Phosphatase Total Protein Albumin 08/15/24 08/15/24 08/15/24 04:49 12:43 14:37 WBC 12.8 H RBC 2.87 L Hgb 9.4 L Hct 28.2 L MCV 98.3 MCH 32.8 MCHC 33.3 RDW 13.0 Plt Count 190 D MPV 10.0 Immature Gran % (Auto) 3.0 H Neut % (Auto) 83.7 H Lymph % (Auto) 6.8 L [place] % (Auto) 5.4 Eos % (Auto) 0.9 Baso % (Auto) 0.2 Lymph # (Auto) 0.87 L [place] # (Auto) 0.7 H Eos # (Auto) 0.1 Baso # (Auto) 0.0 Abs Immat Gran (auto) 0.38 H Absolute Neuts (auto) 10.7 H Absolute Nucleated RBC 0.000 Nucleated RBC % 0.0 PT 15.6 H INR 1.2 APTT 28.4 Puncture Site Left radial ABG pH 7.477 H ABG pCO2 35.9 ABG pO2 63.6 L ABG PO2/FiO2 Ratio 1.77 ABG HCO3 26.0 ABG O2 Saturation 93.8 L ABG O2 Content 14.2 L ABG Base Excess 2.5 A-a Gradient 151.4 Oxyhemoglobin 92.7 Total Hemoglobin 10.9 L O2 Delivery Device Nasal cannula O2 Liters/Min 4.0 FiO2 36 Sodium 132 L Potassium 3.8 Chloride 98 Carbon Dioxide 28 Anion Gap 6 BUN 21 H Creatinine 0.44 L Estim Creat Clear Calc Not Reportable Estimated GFR > 60 Glucose 115 H POC Capillary Glucose 109 H Calcium 8.0 L Phosphorus 3.2 Magnesium 1.8 Transferrin 123 L Total Bilirubin 0.7 AST 37 H ALT 34 Alkaline Phosphatase 75 Total Protein 6.0 L Albumin 2.9 L
[2024-08-15] MEDS: dexAMETHasone SOD PHOS INJ 4 MG/ML VIAL IV PUSH (17:41)
[2024-08-15 18:13] LABS: Glucose Point of Care 126 mg/dl (65-105)
[2024-08-15] MEDS: ONDANSETRON INJ 4 MG/2 ML VIAL IV PUSH (20:54)
[2024-08-16] VITALS (14 sets, daily range): BP systolic 104–108; BP diastolic 52–61; PULSE 77–97; RESP 16–22; TEMP 36.6–37; O2SAT 95–100
[2024-08-16 01:04] LABS: Glucose Point of Care 101 mg/dl (65-105)
[2024-08-16] MEDS: dexAMETHasone SOD PHOS INJ 4 MG/ML VIAL IV PUSH ×4 (01:26→17:01)
[2024-08-16] MEDS: METOCLOPRAMIDE HCL INJ 10 MG/2 ML VIAL 5 MG IV PUSH ×4 (01:26→17:03)
[2024-08-16] MEDS: AMINO ACIDS 5%/D15W/E-LYTES/CA 1,000 ML with MULTIVITAMINS-12 INJ VIAL 1 1.25 ML, MULTI... 50 ML IV CONT ×2 (01:26→17:07)
[2024-08-16] MEDS: PIPERACILLN/TAZ 3.375GM/NS50ML 3.375 GM/50 ML BAG IVPB ×3 (01:26→11:15)
[2024-08-16] MEDS: IPRATROPIUM 0.5 MG/ALBUTEROL SULFATE 2.5 MG AMPUL.NEB 3 ML INHALATION ×4 (03:06→20:04)
[2024-08-16 05:33] LABS: Hematocrit 26.6 % (37.0-47.0); Hemoglobin 8.8 g/dL (12.0-15.0); Mean Corpuscular HGB Conc 33.1 g/dl (32-36); Mean Corpuscular Hemoglobin 32.6 pg (26-34); Mean Corpuscular Volume 98.5 fl (80-100); Mean Platelet Volume 9.8 fl (7.4-10.4); Platelet Count Result 248 k/mm3 (150-375); Red Cell Distribution Width 12.9 % (11.5-14.5); White Blood Count 10.4 K/mm3 (4.5-10.0)
[2024-08-16 05:51] LABS: Anion Gap 5 mmol/L (4-12); Blood Urea Nitrogen 19 mg/dL (7-17); Carbon Dioxide 32 mmol/L (22-30); Chloride 97 mmol/L (98-107); Estimated Glomerular Filt Rate > 60; Glucose 141 mg/dL (65-110); Phosphorus 3.1 mg/dL (2.5-4.5); Potassium 3.9 mmol/L (3.4-5.0); Sodium 134 mmol/L (137-145)
[2024-08-16 05:57] LABS: Glucose Point of Care 118 mg/dl (65-105)
[2024-08-16] MEDS: CENTRAL LINE FLUSH 10 ML IV PUSH ×3 (06:10→20:35)
[2024-08-16 06:34] LABS: Triglycerides 62 mg/dL (<150)
[2024-08-16] MEDS: PANTOPRAZOLE SODIUM IV 40 MG VIAL IV PUSH ×2 (09:42→20:30)
[2024-08-16] MEDS: PHENYTOIN SOD 250 MG/5 ML 225 MG IV PUSH ×2 (09:45→20:34)
[2024-08-16] MEDS: LIDOCAINE 5% PATCH 1 PATCH TRANSDERM ×2 (09:50→09:51)
[2024-08-16] MEDS: ENOXAPARIN 40 MG/0.4 ML SYRINGE SUB-Q (09:50)
[2024-08-16] MEDS: FUROSEMIDE 40 MG TABLET PO (09:51)
[2024-08-16] MEDS: BISACODYL 10 MG SUPPOSITORY RECTAL (09:52)
[2024-08-16 11:43] LABS: Glucose Point of Care 95 mg/dl (65-105)
--- NOTE | 2024-08-16 12:09 | P.PNIM_ITS ---
Progress Note: A&P Assessment and Plan (1) Small bowel obstruction: Code(s): K56.609 - Unspecified intestinal obstruction, unspecified as to partial versus complete obstruction Status: Acute Assessment and Plan: Status post 08/03 Open incarcerated left femoral hernia repair without mesh 08/08 Exploratory laparotomy, gastrostomy tube placement KUB no SBO, cleared for trickle feeding S/p EGD showed intact gastrostomy tube and gastritis GI and GEn surgery following (2) Ileus, postoperative: Code(s): K91.89 - Other postprocedural complications and disorders of digestive system; K56.7 - Ileus, unspecified Status: Acute Assessment and Plan: Resolving Continue Trickle feeds and advance as tolerated (3) Incarcerated left inguinal hernia: Code(s): K40.30 - Unilateral inguinal hernia, with obstruction, without gangrene, not specified as recurrent Status: Acute Assessment and Plan: See above (4) EULALIO (acute kidney injury): Code(s): N17.9 - Acute kidney failure, unspecified Status: Acute Assessment and Plan: creat is stable (5) Sepsis: Code(s): A41.9 - Sepsis, unspecified organism Status: Acute Assessment and Plan: Continue Zosyn per surgery UA was unremarkable 08/08: blood cultures are negative so far CXr shows pnemonia add iv vancomycin (6) Seizures: Code(s): R56.9 - Unspecified convulsions Status: Chronic Assessment and Plan: Continue IV phenytoin (7) Electrolyte abnormality: Code(s): E87.8 - Other disorders of electrolyte and fluid balance, not elsewhere classified Status: Acute Assessment and Plan: Replace potassium (8) Pulmonary edema: Code(s): J81.1 - Chronic pulmonary edema Status: Acute Assessment and Plan: Chest x-ray shows pulmonary edema. Elevated BNP Echo reviewed lasix x1 today for SOB and wheezy lungs (9) Leukocytosis: Code(s): D72.829 - Elevated white blood cell count, unspecified Status: Acute Assessment and Plan: pt on iv zosyn and iv vancomycin added for possible aspiration pneumonia watch cultures Plan DVT prophylaxis on Sq lovenox Subjective Date/time seen: 08/16/24 12:09 Interval history: Comfortable at bedside G tube blocked, awaiting replacement Review of Systems Review of Systems: SOB and wheezy lungs today All systems reviewed & are unremarkable except as noted in HPI and below (HPI) Exam Narrative: General: Frail elderly lady with NG tube in situ and tube feeds Lungs/Chest: BL wheezy lungs Cardiac: RRR. Normal S1 S2. No murmurs Circulation: Palpable pedal pulses, feet are warm Abdomen: Hypoactive bowel sound. Mild tenderness to palpation, gastrostomy tube in place, incision under dressing Extremities: No clubbing or cyanosis, bilateral edema present : Khanna in place Neurologic: Follows commands. Moves all 4 extremities PERRL AO x3 Skin: No Rash Const: General: comfortable and no acute distress Other: The patient is recumbent in a stretcher in the PACU. , female, elderly, modestly ill-appearing. +fatigue. HENMT: Face/Nose/Sinus: Normal nares present Mouth: Yes dry mucous membranes Other: NG in place. Eyes: General: appearance normal, both eyes and all related structures Sclera: sclerae normal Pupils: Equal, round and reactive pupils present EOM: EOMs intact bilaterally Resp: Effort & Inspection: normal respiratory effort Auscultation: clear to auscultation bilaterally Cardio: Rate: regular rate Rhythm: regular rhythm Other: S1-S2 present without murmur, rub, ectopy GI: Other: Abdomen firm, distended. bowel sounds present, Drain in place, serosanguineous output. Skin: General skin exam: normal color and no rashes or lesions noted Wounds: no wounds Neuro: Cranial nerves: Yes Equal, round and reactive pupils present Speech: normal speech Motor exam (neuro): 5/5 motor strength present throughout Sensory Exam: normal sensation Other: A&O x4, mildly somnolent. Extrem: General: normal to inspection Psych: Mental Status: mental status grossly normal Affect: normal affect Other: Good insight and judgment, pleasant Objective Data Vital Signs Vital Signs: Vital Signs - 24 hr 08/15/24 12:15 08/15/24 12:50 08/15/24 13:56 Temperature Pulse Rate Respiratory Rate 28 H 30 H Blood Pressure 157/73 H Pulse Oximetry 96 95 Oxygen Delivery Oxygen Flow Rate Fraction of Inspired Oxygen 08/15/24 14:42 08/15/24 16:00 08/15/24 19:55 Temperature 98.9 F Pulse Rate 86 93 101 H Respiratory Rate 20 14 20 Blood Pressure 143/60 H Pulse Oximetry 96 Oxygen Delivery Oxygen Flow Rate Fraction of Inspired Oxygen 08/15/24 19:59 08/15/24 20:00 08/15/24 20:05 Temperature Pulse Rate 101 H 94 95 Respiratory Rate 24 H 20 Blood Pressure Pulse Oximetry 95 98 Oxygen Delivery Nasal Cannula Nasal Cannula Oxygen Flow Rate 4 4 Fraction of Inspired Oxygen 36 08/15/24 21:37 08/16/24 01:13 08/16/24 03:08 Temperature 98.7 F 98.3 F Pulse Rate 94 85 83 Respiratory Rate 24 H 22 H 20 Blood Pressure 112/58 L 104/54 L Pulse Oximetry 98 100 Oxygen Delivery Oxygen Flow Rate Fraction of Inspired Oxygen 08/16/24 03:13 08/16/24 03:15 08/16/24 08:00 Temperature 98.1 F Pulse Rate 86 86 Respiratory Rate 20 20 Blood Pressure 105/53 L Pulse Oximetry 95 100 Oxygen Delivery Nasal Cannula Oxygen Flow Rate 3 Fraction of Inspired Oxygen 08/16/24 08:33 08/16/24 08:33 Temperature Pulse Rate 77 Respiratory Rate 20 Blood Pressure Pulse Oximetry 97 Oxygen Delivery Nasal Cannula Oxygen Flow Rate 3 Fraction of Inspired Oxygen Intake/Output Intake/Output: Intake & Output 08/13/24 08/14/24 08/15/24 08/16/24 23:59 23:59 23:59 23:59 Intake Total 1216.7 1491.7 2575.0 300 Output Total 1625 2225 400 400 Balance -408.3 -733.3 2175.0 -100 Meds/Results Medications: Active Medications Generic Name Dose Route Start Last Admin Trade Name Freq PRN Reason Stop Dose Admin Albuterol/Ipratropium 3 ml 08/15/24 14:00 08/16/24 08:29 Ipratropium 0.5 Mg/Albuterol Sulfate 2.5 Mg Ampul.Neb 3 Ml INHALATION 3 ml Q6HRT MORGAN Administration Bisacodyl 10 mg 08/15/24 09:00 08/16/24 09:52 Bisacodyl 10 Mg Suppository RECTAL 10 mg QAM MORGAN Administration Dexamethasone Sodium Phosphate 4 mg 08/15/24 18:00 08/16/24 11:14 Dexamethasone Sod Phos Inj 4 Mg/Ml Vial IV PUSH 4 mg Q6HR MORGAN Administration Dextrose 12.5 gm 08/09/24 07:57 Dextrose 50% 25 Gm/50 Ml Syringe IV PUSH PRN PRN Hypoglycemia Protocol Enoxaparin Sodium 40 mg 08/05/24 09:00 08/16/24 09:50 Enoxaparin 40 Mg/0.4 Ml Syringe SUB-Q 40 mg DAILY MORGAN Administration Furosemide 40 mg 08/16/24 09:00 08/16/24 09:51 Furosemide 40 Mg Tablet PO 40 mg DAILY MORGAN Administration Glucagon 1 mg 08/09/24 07:57 Glucagon For Inj 1 Mg Vial IM PRN PRN Hypoglycemia Protocol Glucose 15 gm 08/09/24 07:57 Glucose Oral Gel 15 Gm Of Glucse In 37.5 Gm Tube PO PRN PRN Hypoglycemia Protocol Hydromorphone HCl 0.5 mg 08/09/24 11:55 08/14/24 11:37 Hydromorphone Hcl Inj (*Crx) 1 Mg/Ml Syr IV PUSH 0.5 mg Q2H PRN Administration Pain Rated 7-10 Dextrose 1,000 mls @ 100 mls/hr 08/09/24 07:57 Dextrose 5% 1,000 Ml IVPB PRN PRN Hypoglycemia Protocol Dextrose 1,000 mls @ 50 mls/hr 08/09/24 12:28 Dextrose 10% IV CONT .Q20H PRN if PN is interrupted Multivitamins 1.25 ml/ 1,002.5 mls @ 50 mls/hr 08/09/24 13:30 08/16/24 01:26 Multivitamins 1.25 ml/ Amino IV CONT 50 mls/hr Acids/Electrolytes/Dextrose .Q20H3M MORGAN Administration Protocol Fat Emulsion Intravenous 250 mls @ 20.833 mls/hr 08/09/24 13:30 08/15/24 12:55 Lipids 20% IVPB 20.83 mls/hr Q24H MORGAN Administration Insulin Aspart 2 - 5 units 08/09/24 12:00 08/16/24 06:09 Insulin Aspart (*Bkc) 100 Units/Ml SUB-Q Not Given Q6HR MORGAN Protocol Lidocaine 1 patch 08/04/24 10:25 08/16/24 09:50 Lidocaine 5% Patch TRANSDERM 1 patch DAILY MORGAN Administration Lidocaine 1 patch 08/15/24 09:00 08/16/24 09:51 Lidocaine 5% Patch TRANSDERM 1 patch DAILY MORGAN Administration Metoclopramide HCl 5 mg 08/13/24 18:00 08/16/24 06:09 Metoclopramide Hcl Inj 10 Mg/2 Ml Vial IV PUSH 5 mg Q6HR MORGAN Administration Naloxone HCl 0.1 mg 08/08/24 05:45 Naloxone Hcl 0.4 Mg/Ml Vial IV PUSH Q2M PRN Opiate Reversal Ondansetron HCl 4 mg 08/03/24 15:38 08/15/24 20:54 Ondansetron Inj 4 Mg/2 Ml Vial IV PUSH 4 mg Q4H PRN Administration Nausea Pantoprazole Sodium 40 mg 08/12/24 21:00 08/16/24 09:42 Pantoprazole Sodium Iv 40 Mg Vial IV PUSH 40 mg Q12HR MORGAN Administration Phenytoin Sodium 225 mg 08/07/24 21:15 08/16/24 09:45 Phenytoin Sod 250 Mg/5 Ml Vial (*Bkc) IV PUSH 225 mg Q12HR MORGAN Administration Sodium Chloride 20 ml 08/06/24 23:57 08/07/24 06:05 Central Line Flush IV PUSH 20 ml PRN PRN Administration after blood draws Sodium Chloride 10 ml 08/06/24 23:57 Central Line Flush IV PUSH PRN PRN with TPN bag changes Sodium Chloride 10 ml 08/07/24 06:00 08/16/24 06:10 Central Line Flush IV PUSH 10 ml Q8HR MORGAN Administration Radiology Results: ITS Impressions Abdomen/Pelvis CT 08/08/24 06:07 Impression: Findings highly suspicious for extensive bowel ischemia, extensive small bowel and gastric pneumatosis and extensive portal venous gas. Extensive dilatation of small bowel loops and stomach with decompression of large bowel. Transition point not well delineated, but findings are highly susp icious for distal small bowel obstruction. NG tube tip at the GE junction. Further advancement of NG tube into the stomach is required for adequate placement. Small bilateral pleural effusions. Head CT 08/10/24 11:18 IMPRESSION: 1. Normal aging brain. Upper GI Series 08/10/24 13:27 IMPRESSION: Findings within the distal esophagus/proximal stomach for which prior fundoplication is suspected. Esophageal dysmotility and significant esophageal reflux is also detected. Chest X-Ray 08/15/24 10:10 IMPRESSION: Minimal opacification the right lung base suggestive of atelectasis versus pneumonia. Abdomen X-Ray 08/15/24 13:47 IMPRESSION: NO ACUTE ABDOMINAL FINDINGS. Distended bowel loops with no definite evidence of obstruction. Follow-up advised. Labs Labs: Laboratory Results - last 24 hr 08/15/24 08/15/24 08/15/24 12:43 14:37 18:11 WBC RBC Hgb Hct MCV MCH MCHC RDW Plt Count MPV Puncture Site Left radial ABG pH 7.477 H ABG pCO2 35.9 ABG pO2 63.6 L ABG PO2/FiO2 Ratio 1.77 ABG HCO3 26.0 ABG O2 Saturation 93.8 L ABG O2 Content 14.2 L ABG Base Excess 2.5 A-a Gradient 151.4 Oxyhemoglobin 92.7 Total Hemoglobin 10.9 L O2 Delivery Device Nasal cannula O2 Liters/Min 4.0 FiO2 36 Sodium Potassium Chloride Carbon Dioxide Anion Gap BUN Creatinine Estim Creat Clear Calc Estimated GFR Glucose POC Capillary Glucose 109 H 126 H Calcium Phosphorus Triglycerides 08/16/24 08/16/24 08/16/24 01:00 05:19 05:53 WBC 10.4 H RBC 2.70 L Hgb 8.8 L Hct 26.6 L MCV 98.5 MCH 32.6 MCHC 33.1 RDW 12.9 Plt Count 248 MPV 9.8 Puncture Site ABG pH ABG pCO2 ABG pO2 ABG PO2/FiO2 Ratio ABG HCO3 ABG O2 Saturation ABG O2 Content ABG Base Excess A-a Gradient Oxyhemoglobin Total Hemoglobin O2 Delivery Device O2 Liters/Min FiO2 Sodium 134 L Potassium 3.9 Chloride 97 L Carbon Dioxide 32 H Anion Gap 5 BUN 19 H Creatinine 0.43 L Estim Creat Clear Calc Not Reportable Estimated GFR > 60 Glucose 141 H POC Capillary Glucose 101 118 H Calcium 8.0 L Phosphorus 3.1 Triglycerides 62 08/16/24 11:38 WBC RBC Hgb Hct MCV MCH MCHC RDW Plt Count MPV Puncture Site ABG pH ABG pCO2 ABG pO2 ABG PO2/FiO2 Ratio ABG HCO3 ABG O2 Saturation ABG O2 Content ABG Base Excess A-a Gradient Oxyhemoglobin Total Hemoglobin O2 Delivery Device O2 Liters/Min FiO2 Sodium Potassium Chloride Carbon Dioxide Anion Gap BUN Creatinine Estim Creat Clear Calc Estimated GFR Glucose POC Capillary Glucose 95 Calcium Phosphorus Triglycerides Quality VTE Prophylaxis VTE prophylaxis: mechanical ordered
[2024-08-16] MEDS: FAT EMULSIONS IV 20% 250 ML 20.83 ML IVPB (13:43)
--- NOTE | 2024-08-16 14:20 | PCNFU ---
Nutrition Follow-Up Complete: Altered GI function as related to SBO/Ileus as evidenced by TPN. Goal: Meet estimated nutritional needs. Patient is progressing towards goal. We will continue current goal. Pt current nutrition is TPN at 50 ml/hr and Jevity 1.5 at 30 ml/hr. Last recorded weight is 57.8 kg, last reported weight 08/12. Recommend reweighing pt. Bowel Motility: +BM reported 08/15 Labs Reviewed: Glu 141, BUN 19, Cr 0.43, Na 134 Meds Noted:Clinimix E 10/13 at 50 ml/hr, 250 ml 20% Lipid Emulsion, Reglan, Protonix, Zosyn Skin:WNL Additional Notes: Patient remains on TPN at 50 ml/hr which is providing 1352 kcal and 60 gm protein. Tube feedings per G tube of Jevity 1.5 increased to 30 ml/hr today with flush of 30 ml q 4 hours. Total Nutrition at this time: 2342 kcal and 102 gm protein. Would recommend continuing current nutrition plan till we are able to see if patient can tolerate tube feedings. Will monitor weight, labs, skin, diet orders, meds every Thursday and Thursday.
--- NOTE | 2024-08-16 15:17 | P.PNGS_ITS ---
Progress Note: A&P Assessment and Plan (1) Ileus, postoperative: Code(s): K91.89 - Other postprocedural complications and disorders of digestive system; K56.7 - Ileus, unspecified Status: Acute Assessment and Plan: KUB yesterday showed a nonobstructive bowel gas pattern and appears to have some stool in the colon. No free air or other acute findings. Bowels are moving and she is somewhat tolerating the tube feedings. They have had to hold the tube feedings twice for higher residuals, but it would then move through with time. Continue the Reglan and dulcolax. We will try advancing her tube feedings to 30 cc/hr. Continue TPN for now, but will consider coming down on the rate as she is tolerating the tube feedings better. Goal rate per dietitian would be 40 mL/hr. WBC count also coming down to 10.4 today. Will stop her IV antibiotics and continue to monitor. (2) Small bowel obstruction: Code(s): K56.609 - Unspecified intestinal obstruction, unspecified as to partial versus complete obstruction Status: Acute Assessment and Plan: Resolved (3) Incarcerated left inguinal hernia: Code(s): K40.30 - Unilateral inguinal hernia, with obstruction, without gangrene, not specified as recurrent Status: Acute Assessment and Plan: Status post open incarcerated femoral hernia repair without mesh. Incision healing well. Repair intact. (4) Malnutrition: Code(s): E46 - Unspecified protein-calorie malnutrition Status: Acute Assessment and Plan: Continue on TPN for now for malnutrition until tolerating tube feedings. Goal rate for tube feedings would be 40 mL/hr per the dietitian. Plan I have discussed the patient's case and plan of care with Dr. Jett. Subjective Subjective Date/Time Seen: 08/16/24 12:17 Interval history: 08/03/24 - Open incarcerated left femoral hernia repair without mesh 08/08/24 - Exploratory laparotomy, open gastrostomy tube placement Patient sitting up in the chair. She denies any abdominal pain, nausea, or bloating. Nursing reports tube feeding at 20 cc/hr with a residual of 160 cc overnight and having to stop the tube feeding for a few hours. Residual came down, so tube feeding was resumed. She is still on TPN. She had an episode of respiratory distress yesterday and continued to have issues despite medical treatment. She had thickened secretions being suctioned from the back of her mouth and into her throat. Decision was made during her distress to remove the NG tube as they felt it may be making her respiratory status worse. She was also diuresed. She reports her breathing is much better today. She denies any shortness of breath. She is also getting breathing treatments. She has had 3 bowel movements yesterday and another one today. Review of Systems 2 Review of Systems: All systems reviewed & are unremarkable except as noted in HPI and below Exam Const: General: comfortable and no acute distress Orientation/consciousness: patient oriented x3 GI: Other: Abdomen is still mildly distended but soft and nontender. Midline incision with whitley intact, no erythema or drainage. Gastrostomy tube with tube feedings running, scant yellow drainage at the skin around the tube, no erythema. Fairly good bowel sounds. : Other: Left groin incision dry and glue intact with no erythema or drainage. Repair intact. Urinary Catheter: Urinary Catheter: patent and draining Objective Data Vital Signs Vital Signs: Vital Signs - 24 hr 08/15/24 16:00 08/15/24 19:55 08/15/24 19:59 Temperature 98.9 F Pulse Rate 93 101 H 101 H Respiratory Rate 14 20 Blood Pressure 143/60 H Pulse Oximetry 96 95 Oxygen Delivery Nasal Cannula Oxygen Flow Rate 4 Fraction of Inspired Oxygen 08/15/24 20:00 08/15/24 20:05 08/15/24 21:37 Temperature 98.7 F Pulse Rate 94 95 94 Respiratory Rate 24 H 20 24 H Blood Pressure 112/58 L Pulse Oximetry 98 98 Oxygen Delivery Nasal Cannula Oxygen Flow Rate 4 Fraction of Inspired Oxygen 36 08/16/24 01:13 08/16/24 03:08 08/16/24 03:13 Temperature 98.3 F Pulse Rate 85 83 Respiratory Rate 22 H 20 Blood Pressure 104/54 L Pulse Oximetry 100 95 Oxygen Delivery Nasal Cannula Oxygen Flow Rate 3 Fraction of Inspired Oxygen 08/16/24 03:15 08/16/24 08:00 08/16/24 08:33 Temperature 98.1 F Pulse Rate 86 86 Respiratory Rate 20 20 Blood Pressure 105/53 L Pulse Oximetry 100 97 Oxygen Delivery Nasal Cannula Oxygen Flow Rate 3 Fraction of Inspired Oxygen 08/16/24 08:33 08/16/24 09:42 08/16/24 14:11 Temperature Pulse Rate 77 81 Respiratory Rate 20 20 Blood Pressure Pulse Oximetry 97 Oxygen Delivery Nasal Cannula Oxygen Flow Rate 3 Fraction of Inspired Oxygen 08/16/24 14:21 Temperature Pulse Rate 83 Respiratory Rate 20 Blood Pressure Pulse Oximetry Oxygen Delivery Oxygen Flow Rate Fraction of Inspired Oxygen Intake/Output Intake/Output: Intake & Output 08/13/24 08/14/24 08/15/24 08/16/24 23:59 23:59 23:59 23:59 Intake Total 1216.7 1491.7 2575.0 550 Output Total 1625 2225 400 400 Balance -408.3 -733.3 2175.0 150 Meds/Results Medications: Active Medications Generic Name Dose Route Start Last Admin Trade Name Freq PRN Reason Stop Dose Admin Albuterol/Ipratropium 3 ml 08/15/24 14:00 08/16/24 14:09 Ipratropium 0.5 Mg/Albuterol Sulfate 2.5 Mg Ampul.Neb 3 Ml INHALATION 3 ml Q6HRT MORGAN Administration Bisacodyl 10 mg 08/15/24 09:00 08/16/24 09:52 Bisacodyl 10 Mg Suppository RECTAL 10 mg QAM MORGAN Administration Dexamethasone Sodium Phosphate 4 mg 08/15/24 18:00 08/16/24 11:14 Dexamethasone Sod Phos Inj 4 Mg/Ml Vial IV PUSH 4 mg Q6HR MORGAN Administration Dextrose 12.5 gm 08/09/24 07:57 Dextrose 50% 25 Gm/50 Ml Syringe IV PUSH PRN PRN Hypoglycemia Protocol Enoxaparin Sodium 40 mg 08/05/24 09:00 08/16/24 09:50 Enoxaparin 40 Mg/0.4 Ml Syringe SUB-Q 40 mg DAILY MORAGN Administration Furosemide 40 mg 08/16/24 09:00 08/16/24 09:51 Furosemide 40 Mg Tablet PO 40 mg DAILY MORGAN Administration Glucagon 1 mg 08/09/24 07:57 Glucagon For Inj 1 Mg Vial IM PRN PRN Hypoglycemia Protocol Glucose 15 gm 08/09/24 07:57 Glucose Oral Gel 15 Gm Of Glucse In 37.5 Gm Tube PO PRN PRN Hypoglycemia Protocol Hydromorphone HCl 0.5 mg 08/09/24 11:55 08/14/24 11:37 Hydromorphone Hcl Inj (*Crx) 1 Mg/Ml Syr IV PUSH 0.5 mg Q2H PRN Administration Pain Rated 7-10 Dextrose 1,000 mls @ 100 mls/hr 08/09/24 07:57 Dextrose 5% 1,000 Ml IVPB PRN PRN Hypoglycemia Protocol Dextrose 1,000 mls @ 50 mls/hr 08/09/24 12:28 Dextrose 10% IV CONT .Q20H PRN if PN is interrupted Multivitamins 1.25 ml/ 1,002.5 mls @ 50 mls/hr 08/09/24 13:30 08/16/24 01:26 Multivitamins 1.25 ml/ Amino IV CONT 50 mls/hr Acids/Electrolytes/Dextrose .Q20H3M MORGAN Administration Protocol Fat Emulsion Intravenous 250 mls @ 20.833 mls/hr 08/09/24 13:30 08/16/24 13:43 Lipids 20% IVPB 20.83 mls/hr Q24H MORGAN Administration Insulin Aspart 2 - 5 units 08/09/24 12:00 08/16/24 12:14 Insulin Aspart (*Bkc) 100 Units/Ml SUB-Q Not Given Q6HR MORGAN Protocol Lidocaine 1 patch 08/04/24 10:25 08/16/24 09:50 Lidocaine 5% Patch TRANSDERM 1 patch DAILY MORGAN Administration Lidocaine 1 patch 08/15/24 09:00 08/16/24 09:51 Lidocaine 5% Patch TRANSDERM 1 patch DAILY MORGAN Administration Metoclopramide HCl 5 mg 08/13/24 18:00 08/16/24 12:09 Metoclopramide Hcl Inj 10 Mg/2 Ml Vial IV PUSH 5 mg Q6HR MORGAN Administration Naloxone HCl 0.1 mg 08/08/24 05:45 Naloxone Hcl 0.4 Mg/Ml Vial IV PUSH Q2M PRN Opiate Reversal Ondansetron HCl 4 mg 08/03/24 15:38 08/15/24 20:54 Ondansetron Inj 4 Mg/2 Ml Vial IV PUSH 4 mg Q4H PRN Administration Nausea Pantoprazole Sodium 40 mg 08/12/24 21:00 08/16/24 09:42 Pantoprazole Sodium Iv 40 Mg Vial IV PUSH 40 mg Q12HR MORGAN Administration Phenytoin Sodium 225 mg 08/07/24 21:15 08/16/24 09:45 Phenytoin Sod 250 Mg/5 Ml Vial (*Bkc) IV PUSH 225 mg Q12HR MORGAN Administration Sodium Chloride 20 ml 08/06/24 23:57 08/07/24 06:05 Central Line Flush IV PUSH 20 ml PRN PRN Administration after blood draws Sodium Chloride 10 ml 08/06/24 23:57 Central Line Flush IV PUSH PRN PRN with TPN bag changes Sodium Chloride 10 ml 08/07/24 06:00 08/16/24 15:09 Central Line Flush IV PUSH 10 ml Q8HR MORGAN Administration Radiology Results: ITS Impressions Abdomen/Pelvis CT 08/08/24 06:07 Impression: Findings highly suspicious for extensive bowel ischemia, extensive small bowel and gastric pneumatosis and extensive portal venous gas. Extensive dilatation of small bowel loops and stomach with decompression of large bowel. Transition point not well delineated, but findings are highly suspicious for distal small bowel obstruction. NG tube tip at the GE junction. Further advancement of NG tube into the stomach is required for adequate placement. Small bilateral pleural effusions. Head CT 08/10/24 11:18 IMPRESSION: 1. Normal aging brain. Upper GI Series 08/10/24 13:27 IMPRESSION: Findings within the distal esophagus/proximal stomach for which prior fundoplication is suspected. Esophageal dysmotility and significant esophageal reflux is also detected. Chest X-Ray 08/15/24 10:10 IMPRESSION: Minimal opacification the right lung base suggestive of atelectasis versus pneumonia. Abdomen X-Ray 08/15/24 13:47 IMPRESSION: NO ACUTE ABDOMINAL FINDINGS. Distended bowel loops with no definite evidence of obstruction. Follow-up advised. Labs Labs: Laboratory Results - last 24 hr 08/15/24 08/16/24 08/16/24 18:11 01:00 05:19 WBC 10.4 H RBC 2.70 L Hgb 8.8 L Hct 26.6 L MCV 98.5 MCH 32.6 MCHC 33.1 RDW 12.9 Plt Count 248 MPV 9.8 Sodium 134 L Potassium 3.9 Chloride 97 L Carbon Dioxide 32 H Anion Gap 5 BUN 19 H Creatinine 0.43 L Estim Creat Clear Calc Not Reportable Estimated GFR > 60 Glucose 141 H POC Capillary Glucose 126 H 101 Calcium 8.0 L Phosphorus 3.1 Triglycerides 62 08/16/24 08/16/24 05:53 11:38 WBC RBC Hgb Hct MCV MCH MCHC RDW Plt Count MPV Sodium Potassium Chloride Carbon Dioxide Anion Gap BUN Creatinine Estim Creat Clear Calc Estimated GFR Glucose POC Capillary Glucose 118 H 95 Calcium Phosphorus Triglycerides
[2024-08-16 18:51] LABS: Glucose Point of Care 117 mg/dl (65-105)
[2024-08-16] MEDS: HYDROmorphone HCL INJ (*CRX) 1 MG/ML SYR 0.5 MG IV PUSH (21:03)
[2024-08-17] VITALS (13 sets, daily range): BP systolic 108–110; BP diastolic 46–58; PULSE 74–89; RESP 16–17; TEMP 36.4–36.9; O2SAT 93–97
[2024-08-17] MEDS: dexAMETHasone SOD PHOS INJ 4 MG/ML VIAL IV PUSH ×5 (00:06→23:58)
[2024-08-17] MEDS: METOCLOPRAMIDE HCL INJ 10 MG/2 ML VIAL 5 MG IV PUSH ×5 (00:07→23:58)
[2024-08-17 00:19] LABS: Glucose Point of Care 136 mg/dl (65-105)
[2024-08-17] MEDS: IPRATROPIUM 0.5 MG/ALBUTEROL SULFATE 2.5 MG AMPUL.NEB 3 ML INHALATION ×4 (01:49→20:08)
[2024-08-17] MEDS: CENTRAL LINE FLUSH 10 ML IV PUSH ×3 (05:12→20:55)
[2024-08-17 05:23] LABS: Basophils Percent Auto 0.2 % (0.2-1.2); Eosinophils Percent Auto 0.5 % (0-4.4); Hemoglobin 8.8 g/dL (12.0-15.0); Immature Granulocyte Absolute 0.13 K/mm3 (0.00-0.031); Immature Granulocyte Percent A 1.6 % (0-0.5); Lymphocytes Absolute Auto 0.91 K/mm3 (0.9-3.2); Lymphocytes Percent Auto 10.9 % (18.3-44.2); Mean Corpuscular HGB Conc 32.6 g/dl (32-36); Mean Corpuscular Hemoglobin 32.8 pg (26-34); Mean Corpuscular Volume 100.7 fl (80-100); Mean Platelet Volume 9.5 fl (7.4-10.4); Monocytes Absolute Auto 0.4 K/mm3 (0.1-0.6); Monocytes Percent Auto 5.2 % (2.6-8.5); Neutrophils Absolute Auto 6.8 K/mm3 (1.3-6.7); Neutrophils Percent Auto 81.6 % (45.5-73.1); Platelet Count Result 310 k/mm3 (150-375); Red Blood Count 2.68 M/mm3 (4.2-5.4); Red Cell Distribution Width 13.5 % (11.5-14.5); White Blood Count 8.3 K/mm3 (4.5-10.0)
[2024-08-17 05:26] LABS: Glucose Point of Care 89 mg/dl (65-105)
[2024-08-17 05:32] LABS: Alanine Aminotransferase 35 U/L (6-35); Albumin Level 3.1 g/dL (3.5-5.1); Alkaline Phosphatase 84 U/L (38-126); Anion Gap 5 mmol/L (4-12); Aspartate Amino Transferase 31 U/L (14-36); Bilirubin,Total 0.3 mg/dL (0.2-1.3); Blood Urea Nitrogen 23 mg/dL (7-17); Calcium 8.2 mg/dL (8.4-10.2); Carbon Dioxide 31 mmol/L (22-30); Chloride 98 mmol/L (98-107); Estimated Glomerular Filt Rate > 60; Glucose 88 mg/dL (65-110); Magnesium 1.9 mg/dL (1.6-2.3); Potassium 4.1 mmol/L (3.4-5.0); Sodium 134 mmol/L (137-145)
[2024-08-17 05:52] LABS: Vancomycin Trough < 5.0 ug/mL (10.0-20.0)
[2024-08-17] MEDS: PANTOPRAZOLE SODIUM IV 40 MG VIAL IV PUSH ×2 (09:18→20:54)
[2024-08-17] MEDS: PHENYTOIN SOD 250 MG/5 ML 225 MG IV PUSH ×2 (09:24→20:55)
[2024-08-17] MEDS: ENOXAPARIN 40 MG/0.4 ML SYRINGE SUB-Q (09:28)
[2024-08-17] MEDS: LIDOCAINE 5% PATCH 1 PATCH TRANSDERM ×2 (09:29)
[2024-08-17] MEDS: FUROSEMIDE 40 MG TABLET PO (09:29)
[2024-08-17] MEDS: BISACODYL 10 MG SUPPOSITORY RECTAL (10:03)
--- NOTE | 2024-08-17 10:05 | P.PNIM_ITS ---
Progress Note: A&P Assessment and Plan (1) Small bowel obstruction: Code(s): K56.609 - Unspecified intestinal obstruction, unspecified as to partial versus complete obstruction Status: Acute Assessment and Plan: Status post 08/03 Open incarcerated left femoral hernia repair without mesh 08/08 Exploratory laparotomy, gastrostomy tube placement KUB no SBO, cleared for trickle feeding S/p EGD showed intact gastrostomy tube and gastritis GI and GEn surgery following (2) Ileus, postoperative: Code(s): K91.89 - Other postprocedural complications and disorders of digestive system; K56.7 - Ileus, unspecified Status: Acute Assessment and Plan: Resolving Contineu T feeds, advance as tolerated to the goal of 40/hr (3) Incarcerated left inguinal hernia: Code(s): K40.30 - Unilateral inguinal hernia, with obstruction, without gangrene, not specified as recurrent Status: Acute Assessment and Plan: See above (4) EULALIO (acute kidney injury): Code(s): N17.9 - Acute kidney failure, unspecified Status: Acute Assessment and Plan: resolved (5) Sepsis: Code(s): A41.9 - Sepsis, unspecified organism Status: Acute Assessment and Plan: Completed Zosyn. UA was unremarkable 08/08: blood cultures are negative so far CXR shows pneumonia add iv vancomycin (6) Seizures: Code(s): R56.9 - Unspecified convulsions Status: Chronic Assessment and Plan: Continue IV phenytoin (7) Electrolyte abnormality: Code(s): E87.8 - Other disorders of electrolyte and fluid balance, not elsewhere classified Status: Acute Assessment and Plan: Replace potassium (8) Pulmonary edema: Code(s): J81.1 - Chronic pulmonary edema Status: Acute Assessment and Plan: Chest x-ray shows pulmonary edema. Elevated BNP Echo reviewed lasix x1 today for SOB and wheezy lungs (9) Leukocytosis: Code(s): D72.829 - Elevated white blood cell count, unspecified Status: Acute Assessment and Plan: pt on iv zosyn and iv vancomycin added for possible aspiration pneumonia watch cultures Plan DVT prophylaxis on Sq lovenox Subjective Date/time seen: 08/17/24 10:05 Interval history: Comfortable at bedside G tube now working will discuss with surgery about oral intake Review of Systems Review of Systems: SOB and wheezy lungs today All systems reviewed & are unremarkable except as noted in HPI and below (HPI) Exam Narrative: General: Frail elderly lady with NG tube in situ and tube feeds Lungs/Chest: BL wheezy lungs Cardiac: RRR. Normal S1 S2. No murmurs Circulation: Palpable pedal pulses, feet are warm Abdomen: Hypoactive bowel sound. Mild tenderness to palpation, gastrostomy tube in place, incision under dressing Extremities: No clubbing or cyanosis, bilateral edema present : Khanna in place Neurologic: Follows commands. Moves all 4 extremities PERRL AO x3 Skin: No Rash Const: General: comfortable and no acute distress Other: The patient is recumbent in a stretcher in the PACU. , female, elderly, modestly ill-appearing. +fatigue. HENMT: Face/Nose/Sinus: Normal nares present Mouth: Yes dry mucous membranes Other: NG in place. Eyes: General: appearance normal, both eyes and all related structures Sclera: sclerae normal Pupils: Equal, round and reactive pupils present EOM: EOMs intact bilaterally Resp: Effort & Inspection: normal respiratory effort Auscultation: clear to auscultation bilaterally Cardio: Rate: regular rate Rhythm: regular rhythm Other: S1-S2 present without murmur, rub, ectopy GI: Other: Abdomen firm, distended. bowel sounds present, Drain in place, serosanguineous output. Skin: General skin exam: normal color and no rashes or lesions noted Wounds: no wounds Neuro: Cranial nerves: Yes Equal, round and reactive pupils present Speech: normal speech Motor exam (neuro): 5/5 motor strength present throughout Sensory Exam: normal sensation Other: A&O x4, mildly somnolent. Extrem: General: normal to inspection Psych: Mental Status: mental status grossly normal Affect: normal affect Other: Good insight and judgment, pleasant Objective Data Vital Signs Vital Signs: Vital Signs - 24 hr 08/16/24 14:11 08/16/24 14:21 08/16/24 16:00 Temperature 98.6 F Pulse Rate 81 83 89 Respiratory Rate 20 20 20 Blood Pressure 108/61 Pulse Oximetry 100 Oxygen Delivery Oxygen Flow Rate Fraction of Inspired Oxygen 08/16/24 20:00 08/16/24 20:04 08/16/24 20:04 Temperature Pulse Rate 92 Respiratory Rate 20 Blood Pressure Pulse Oximetry 100 96 Oxygen Delivery Nasal Cannula Nasal Cannula Oxygen Flow Rate 1 1 Fraction of Inspired Oxygen 08/16/24 20:12 08/16/24 20:41 08/17/24 01:49 Temperature 97.8 F Pulse Rate 87 97 78 Respiratory Rate 20 16 16 Blood Pressure 108/52 L Pulse Oximetry 100 Oxygen Delivery Oxygen Flow Rate Fraction of Inspired Oxygen 08/17/24 01:57 08/17/24 05:10 08/17/24 07:55 Temperature 97.6 F Pulse Rate 81 84 Respiratory Rate 16 16 Blood Pressure 110/46 L Pulse Oximetry 97 95 Oxygen Delivery Nasal Cannula Oxygen Flow Rate 1 Fraction of Inspired Oxygen 08/17/24 07:55 08/17/24 08:00 08/17/24 08:01 Temperature 97.7 F Pulse Rate 74 84 89 Respiratory Rate 16 17 16 Blood Pressure 110/58 L Pulse Oximetry 95 Oxygen Delivery Oxygen Flow Rate Fraction of Inspired Oxygen Intake/Output Intake/Output: Intake & Output 08/14/24 08/15/24 08/16/24 08/17/24 23:59 23:59 23:59 23:59 Intake Total 1491.7 2575.0 1594.2 Output Total 2225 400 1050 800 Balance -733.3 2175.0 544.2 -800 Meds/Results Medications: Active Medications Generic Name Dose Route Start Last Admin Trade Name Freq PRN Reason Stop Dose Admin Albuterol/Ipratropium 3 ml 08/15/24 14:00 08/17/24 07:54 Ipratropium 0.5 Mg/Albuterol Sulfate 2.5 Mg Ampul.Neb 3 Ml INHALATION 3 ml Q6HRT MORGAN Administration Bisacodyl 10 mg 08/15/24 09:00 08/17/24 10:03 Bisacodyl 10 Mg Suppository RECTAL 10 mg QAM MORGAN Administration Dexamethasone Sodium Phosphate 4 mg 08/15/24 18:00 08/17/24 05:06 Dexamethasone Sod Phos Inj 4 Mg/Ml Vial IV PUSH 4 mg Q6HR MORGAN Administration Dextrose 12.5 gm 08/09/24 07:57 Dextrose 50% 25 Gm/50 Ml Syringe IV PUSH PRN PRN Hypoglycemia Protocol Enoxaparin Sodium 40 mg 08/05/24 09:00 08/17/24 09:28 Enoxaparin 40 Mg/0.4 Ml Syringe SUB-Q 40 mg DAILY MORGAN Administration Furosemide 40 mg 08/16/24 09:00 08/17/24 09:29 Furosemide 40 Mg Tablet PO 40 mg DAILY MORGAN Administration Glucagon 1 mg 08/09/24 07:57 Glucagon For Inj 1 Mg Vial IM PRN PRN Hypoglycemia Protocol Glucose 15 gm 08/09/24 07:57 Glucose Oral Gel 15 Gm Of Glucse In 37.5 Gm Tube PO PRN PRN Hypoglycemia Protocol Hydromorphone HCl 0.5 mg 08/09/24 11:55 08/16/24 21:03 Hydromorphone Hcl Inj (*Crx) 1 Mg/Ml Syr IV PUSH 0.5 mg Q2H PRN Administration Pain Rated 7-10 Dextrose 1,000 mls @ 100 mls/hr 08/09/24 07:57 Dextrose 5% 1,000 Ml IVPB PRN PRN Hypoglycemia Protocol Dextrose 1,000 mls @ 50 mls/hr 08/09/24 12:28 Dextrose 10% IV CONT .Q20H PRN if PN is interrupted Multivitamins 1.25 ml/ 1,002.5 mls @ 50 mls/hr 08/09/24 13:30 08/16/24 17:07 Multivitamins 1.25 ml/ Amino IV CONT 50 mls/hr Acids/Electrolytes/Dextrose .Q20H3M MORGAN Administration Protocol Fat Emulsion Intravenous 250 mls @ 20.833 mls/hr 08/09/24 13:30 08/16/24 13:43 Lipids 20% IVPB 20.83 mls/hr Q24H MORGAN Administration Insulin Aspart 2 - 5 units 08/09/24 12:00 08/17/24 06:08 Insulin Aspart (*Bkc) 100 Units/Ml SUB-Q Not Given Q6HR MORGAN Protocol Lidocaine 1 patch 08/04/24 10:25 08/17/24 09:29 Lidocaine 5% Patch TRANSDERM 1 patch DAILY MORGAN Administration Lidocaine 1 patch 08/15/24 09:00 08/17/24 09:29 Lidocaine 5% Patch TRANSDERM 1 patch DAILY MORGAN Administration Metoclopramide HCl 5 mg 08/13/24 18:00 08/17/24 05:06 Metoclopramide Hcl Inj 10 Mg/2 Ml Vial IV PUSH 5 mg Q6HR MORGAN Administration Naloxone HCl 0.1 mg 08/08/24 05:45 Naloxone Hcl 0.4 Mg/Ml Vial IV PUSH Q2M PRN Opiate Reversal Ondansetron HCl 4 mg 08/03/24 15:38 08/15/24 20:54 Ondansetron Inj 4 Mg/2 Ml Vial IV PUSH 4 mg Q4H PRN Administration Nausea Pantoprazole Sodium 40 mg 08/12/24 21:00 08/17/24 09:18 Pantoprazole Sodium Iv 40 Mg Vial IV PUSH 40 mg Q12HR MORGAN Administration Phenytoin Sodium 225 mg 08/07/24 21:15 08/17/24 09:24 Phenytoin Sod 250 Mg/5 Ml Vial (*[facility]) IV PUSH 225 mg Q12HR MORGAN Administration Sodium Chloride 20 ml 08/06/24 23:57 08/07/24 06:05 Central Line Flush IV PUSH 20 ml PRN PRN Administration after blood draws Sodium Chloride 10 ml 08/06/24 23:57 Central Line Flush IV PUSH PRN PRN with TPN bag changes Sodium Chloride 10 ml 08/07/24 06:00 08/17/24 05:12 Central Line Flush IV PUSH 10 ml Q8HR MORGAN Administration Radiology Results: ITS Impressions Abdomen/Pelvis CT 08/08/24 06:07 Impression: Findings highly suspicious for extensive bowel ischemia, extensive small bowel and gastric pneumatosis and extensive portal venous gas. Extensive dilatation of small bowel loops and stomach with decompression of large bowel. Transition point not well delineated, but findings are highly suspicious for distal small bowel obstruction. NG tube tip at the GE junction. Further advancement of NG tube into the stomach is required for adequate placement. Small bilateral pleural effusions. Head CT 08/10/24 11:18 IMPRESSION: 1. Normal aging brain. Upper GI Series 08/10/24 13:27 IMPRESSION: Findings within the distal esophagus/proximal stomach for which prior fundoplication is suspected. Esophageal dysmotility and significant esophageal reflux is also detected. Chest X-Ray 08/15/24 10:10 IMPRESSION: Minimal opacification the right lung base suggestive of atelectasis versus pneumonia. Abdomen X-Ray 08/15/24 13:47 IMPRESSION: NO ACUTE ABDOMINAL FINDINGS. Distended bowel loops with no definite evidence of obstruction. Follow-up advised. Labs Labs: Laboratory Results - last 24 hr 08/16/24 08/16/24 08/17/24 11:38 18:49 00:06 WBC RBC Hgb Hct MCV MCH MCHC RDW Plt Count MPV Immature Gran % (Auto) Neut % (Auto) Lymph % (Auto) Lander % (Auto) Eos % (Auto) Baso % (Auto) Lymph # (Auto) [place]ander # (Auto) Eos # (Auto) Baso # (Auto) Abs Immat Gran (auto) Absolute Neuts (auto) Absolute Nucleated RBC Nucleated RBC % Sodium Potassium Chloride Carbon Dioxide Anion Gap BUN Creatinine Estim Creat Clear Calc Estimated GFR Glucose POC Capillary Glucose 95 117 H 136 H Calcium Magnesium Total Bilirubin AST ALT Alkaline Phosphatase Total Protein Albumin Vancomycin Trough 08/17/24 08/17/24 05:01 05:23 WBC 8.3 RBC 2.68 L Hgb 8.8 L Hct 27.0 L MCV 100.7 H MCH 32.8 MCHC 32.6 RDW 13.5 Plt Count 310 MPV 9.5 Immature Gran % (Auto) 1.6 H Neut % (Auto) 81.6 H Lymph % (Auto) 10.9 L [place]ander % (Auto) 5.2 Eos % (Auto) 0.5 Baso % (Auto) 0.2 Lymph # (Auto) 0.91 Lander # (Auto) 0.4 Eos # (Auto) 0.0 Baso # (Auto) 0.0 Abs Immat Gran (auto) 0.13 H Absolute Neuts (auto) 6.8 H Absolute Nucleated RBC 0.000 Nucleated RBC % 0.0 Sodium 134 L Potassium 4.1 Chloride 98 Carbon Dioxide 31 H Anion Gap 5 BUN 23 H Creatinine 0.46 L Estim Creat Clear Calc Not Reportable Estimated GFR > 60 Glucose 88 POC Capillary Glucose 89 Calcium 8.2 L Magnesium 1.9 Total Bilirubin 0.3 AST 31 ALT 35 Alkaline Phosphatase 84 Total Protein 6.0 L Albumin 3.1 L Vancomycin Trough < 5.0 L Quality VTE Prophylaxis VTE prophylaxis: mechanical ordered
[2024-08-17 10:38] LABS: Iron 43 ug/dL (37-170)
[2024-08-17 10:50] LABS: Percent Iron Saturation 22 % (20-50)
--- NOTE | 2024-08-17 11:36 | P.PNGS_ITS ---
Progress Note: A&P Assessment and Plan (1) Ileus, postoperative: Code(s): K91.89 - Other postprocedural complications and disorders of digestive system; K56.7 - Ileus, unspecified Status: Acute Assessment and Plan: Slowly improving. Her abdomen appears less distended today and she had one BM yesterday and this morning. Will give her another Dulcolax suppository. Continue Reglan. Will hold her tube feeding this morning for 4 hours due to her high residual and then try resuming at 30 cc/hr. Continue TPN until her tube feeding is at a goal rate of 40 cc/hr. She has been able to come off oxygen and her resp iratory status continues to improve. Continue her furosemide 40 mg PO daily for now. Still has some lower extremity edema. Encouraged mobilizing more and trying to elevated her feet when sitting in the chair or resting in bed. (2) Small bowel obstruction: Code(s): K56.609 - Unspecified intestinal obstruction, unspecified as to partial versus c omplete obstruction Status: Acute Assessment and Plan: Resolved (3) Incarcerated left inguinal hernia: Code(s): K40.30 - Unilateral inguinal hernia, with obstruction, without gangrene, not specified as recurrent Status: Acute Assessment and Plan: Status post open incarcerated femoral hernia repair without mesh. Incision healing well. Repair intact. (4) Malnutrition: Code(s): E46 - Unspecified protein-calorie malnutrition Status: Acute Assessment and Plan: Continue on TPN for now for malnutrition until tolerating tube feedings. Goal rate for tube feedings would be 40 mL/hr per the dietitian. Plan I have discussed the patient's case and plan of care with Dr. Jett. Subjective Subjective Date/Time Seen: 08/17/24 11:36 Patient reports: no new complaints Interval history: 08/03/24 - Open incarcerated left femoral hernia repair without mesh 08/08/24 - Exploratory laparotomy, open gastrostomy tube placement Patient has come off her oxygen. She is on room air this morning. No complaints of SOB, cough, or chest pain. she denies any nausea or abdominal pain. Her residual this morning was 300 cc. Tube feeding stopped by nursing. She had 1 bowel movement yesterday and another good bowel movement this morning. She has some lower extremity edema bilaterally. She has been sitting in the chair majority of the day the past few days with her feet dangling. Swelling in her hands has significantly improved. Review of Systems Review of Systems: All systems reviewed & are unremarkable except as noted in HPI and below Exam Const: General: comfortable and no acute distress Or ientation/consciousness: patient oriented x3 Resp: Effort & Inspection: normal respiratory effort Auscultation: wheezes expiratory wheezes and throughout GI: Inspection: incision (dry and whitley intact, no erythema) and other (mildly distended) GI Palp: Yes Soft to palpation, Yes Tenderness to palpation present (GI) (mild tenderness near the midline incisions, but no other tenderness) and No Guarding due to palpation present (GI) Auscultation: normal bowel sounds Other: Gastrostomy tube with scant yellow drainage at the skin around the tube, no erythema. Fairly good bowel sounds. : Other: Left groin incision dry and glue intact with no erythema or drainage. Repair intact. Urinary Catheter: Urinary Catheter: patent and draining Objective Data Vital Signs Vital Signs: Vital Signs - 24 hr 08/16/24 14:11 08/16/24 14:21 08/16/24 16:00 Temperature 98.6 F Pulse Rate 81 83 89 Respiratory Rate 20 20 20 Blood Pressure 108/61 Pulse Oximetry 100 Oxygen Delivery Oxygen Flow Rate Fraction of Inspired Oxygen 08/16/24 20:00 08/16/24 20:04 08/16/24 20:04 Temperature Pulse Rate 92 Respiratory Rate 20 Blood Pressure Pulse Oximetry 100 96 Oxygen Delivery Nasal Cannula Nasal Cannula Oxygen Flow Rate 1 1 Fraction of Inspired Oxygen 24 08/16/24 20:12 08/16/24 20:41 08/17/24 01:49 Temperature 97.8 F Pulse Rate 87 97 78 Respiratory Rate 20 16 16 Blood Pressure 108/52 L Pulse Oximetry 100 Oxygen Delivery Oxygen Flow Rate Fraction of Inspired Oxygen 08/17/24 01:57 08/17/24 05:10 08/17/24 07:55 Temperature 97.6 F Pulse Rate 81 84 Respiratory Rate 16 16 Blood Pressure 110/46 L Pulse Oximetry 97 95 Oxygen Delivery Nasal Cannula Oxygen Flow Rate 1 Fraction of Inspired Oxygen 08/17/24 07:55 08/17/24 08:00 08/17/24 08:01 Temperature 97.7 F Pulse Rate 74 84 89 Respiratory Rate 16 17 16 Blood Pressure 110/58 L Pulse Oximetry 95 Oxygen Delivery Oxygen Flow Rate Fraction of Inspired Oxygen 08/17/24 09:28 Temperature Pulse Rate 89 Respiratory Rate 16 Blood Pressure Pulse Oximetry 95 Oxygen Delivery Room Air Oxygen Flow Rate Fraction of Inspired Oxygen 24 Intake/Output Intake/Output: Intake & Output 08/14/24 08/15/24 08/16/24 08/17/24 23:59 23:59 23:59 23:59 Intake Total 1491.7 2575.0 1594.2 Output Total 2225 400 1050 800 Balance -733.3 2175.0 544.2 -800 Meds/Results Medications: Active Medications Generic Name Dose Route Start Last Admin Trade Name Freq PRN Reason Stop Dose Admin Albuterol/Ipratropium 3 ml 08/15/24 14:00 08/17/24 07:54 Ipratropium 0.5 Mg/Albuterol Sulfate 2.5 Mg Ampul.Neb 3 Ml INHALATION 3 ml Q6HRT MORGAN Administration Bisacodyl 10 mg 08/15/24 09:00 08/17/24 10:03 Bisacodyl 10 Mg Suppository RECTAL 10 mg QAM MORGAN Administration Dexamethasone Sodium Phosphate 4 mg 08/15/24 18:00 08/17/24 05:06 Dexamethasone Sod Phos Inj 4 Mg/Ml Vial IV PUSH 4 mg Q6HR MORGAN Administration Dextrose 12.5 gm 08/09/24 07:57 Dextrose 50% 25 Gm/50 Ml Syringe IV PUSH PRN PRN Hypoglycemia Protocol Enoxaparin Sodium 40 mg 08/05/24 09:00 08/17/24 09:28 Enoxaparin 40 Mg/0.4 Ml Syringe SUB-Q 40 mg DAILY MORGAN Administration Furosemide 40 mg 08/16/24 09:00 08/17/24 09:29 Furosemide 40 Mg Tablet PO 40 mg DAILY MORGAN Administration Glucagon 1 mg 08/09/24 07:57 Glucagon For Inj 1 Mg Vial IM PRN PRN Hypoglycemia Protocol Glucose 15 gm 08/09/24 07:57 Glucose Oral Gel 15 Gm Of Glucse In 37.5 Gm Tube PO PRN PRN Hypoglycemia Protocol Hydromorphone HCl 0.5 mg 08/09/24 11:55 08/16/24 21:03 Hydromorphone Hcl Inj (*Crx) 1 Mg/Ml Syr IV PUSH 0.5 mg Q2H PRN Administration Pain Rated 7-10 Dextrose 1,000 mls @ 100 mls/hr 08/09/24 07:57 Dextrose 5% 1,000 Ml IVPB PRN PRN Hypoglycemia Protocol Dextrose 1,000 mls @ 50 mls/hr 08/09/24 12:28 Dextrose 10% IV CONT .Q20H PRN if PN is interrupted Multivitamins 1.25 ml/ 1,002.5 mls @ 50 mls/hr 08/09/24 13:30 08/16/24 17:07 Multivitamins 1.25 ml/ Amino IV CONT 50 mls/hr Acids/Electrolytes/Dextrose .Q20H3M MORGAN Administration Protocol Fat Emulsion Intravenous 250 mls @ 20.833 mls/hr 08/09/24 13:30 08/16/24 13:43 Lipids 20% IVPB 20.83 mls/hr Q24H MORGAN Administration Insulin Aspart 2 - 5 units 08/09/24 12:00 08/17/24 06:08 Insulin Aspart (*Bkc) 100 Units/Ml SUB-Q Not Given Q6HR MORGAN Protocol Lidocaine 1 patch 08/04/24 10:25 08/17/24 09:29 Lidocaine 5% Patch TRANSDERM 1 patch DAILY MORGAN Administration Lidocaine 1 patch 08/15/24 09:00 08/17/24 09:29 Lidocaine 5% Patch TRANSDERM 1 patch DAILY MORGAN Administration Metoclopramide HCl 5 mg 08/13/24 18:00 08/17/24 05:06 Metoclopramide Hcl Inj 10 Mg/2 Ml Vial IV PUSH 5 mg Q6HR MORGAN Administration Naloxone HCl 0.1 mg 08/08/24 05:45 Naloxone Hcl 0.4 Mg/Ml Vial IV PUSH Q2M PRN Opiate Reversal Ondansetron HCl 4 mg 08/03/24 15:38 08/15/24 20:54 Ondansetron Inj 4 Mg/2 Ml Vial IV PUSH 4 mg Q4H PRN Administration Nausea Pantoprazole Sodium 40 mg 08/12/24 21:00 08/17/24 09:18 Pantoprazole Sodium Iv 40 Mg Vial IV PUSH 40 mg Q12HR MORGAN Administration Phenytoin Sodium 225 mg 08/07/24 21:15 08/17/24 09:24 Phenytoin Sod 250 Mg/5 Ml Vial (*Bkc) IV PUSH 225 mg Q12HR MORGAN Administration Sodium Chloride 20 ml 08/06/24 23:57 08/07/24 06:05 Central Line Flush IV PUSH 20 ml PRN PRN Administration after blood draws Sodium Chloride 10 ml 08/06/24 23:57 Central Line Flush IV PUSH PRN PRN with TPN bag changes Sodium Chloride 10 ml 08/07/24 06:00 08/17/24 05:12 Central Line Flush IV PUSH 10 ml Q8HR MORGAN Administration Radiology Results: ITS Impressions Abdomen/Pelvis CT 08/08/24 06:07 Impression: Findings highly suspicious for extensive bowel ischemia, extensive small bowel and gastric pneumatosis and extensive portal venous gas. Extensive dilatation of small bowel loops and stomach with decompression of large bowel. Transition point not well delineated, but findings are highly suspicious for distal small bowel obstruction. NG tube tip at the GE junction. Further advancement of NG tube into the stomach is required for adequate placement. Small bilateral pleural effusions. Head CT 08/10/24 11:18 IMPRESSION: 1. Normal aging brain. Upper GI Series 08/10/24 13:27 IMPRESSION: Findings within the distal esophagus/proximal stomach for which prior fundoplication is suspected. Esophageal dysmotility and significant esophageal reflux is also detected. Chest X-Ray 08/15/24 10:10 IMPRESSION: Minimal opacification the right lung base suggestive of atelectasis versus pneumonia. Abdomen X-Ray 08/15/24 13:47 IMPRESSION: NO ACUTE ABDOMINAL FINDINGS. Distended bowel loops with no definite evidence of obstruction. Follow-up advised. Labs Labs: Laboratory Results - last 24 hr 08/16/24 08/16/24 08/17/24 11:38 18:49 00:06 WBC RBC Hgb Hct MCV MCH MCHC RDW Plt Count MPV Immature Gran % (Auto) Neut % (Auto) Lymph % (Auto) [place] % (Auto) Eos % (Auto) Baso % (Auto) Lymph # (Auto) [place] # (Auto) Eos # (Auto) Baso # (Auto) Abs Immat Gran (auto) Absolute Neuts (auto) Absolute Nucleated RBC Nucleated RBC % Sodium Potassium Chloride Carbon Dioxide Anion Gap BUN Creatinine Estim Creat Clear Calc Estimated GFR Glucose POC Capillary Glucose 95 117 H 136 H Calcium Magnesium Iron TIBC % Saturation Ferritin Total Bilirubin AST ALT Alkaline Phosphatase Total Protein Albumin Vancomycin Trough 08/17/24 08/17/24 08/17/24 04:59 05:01 05:23 WBC 8.3 RBC 2.68 L Hgb 8.8 L Hct 27.0 L MCV 100.7 H MCH 32.8 MCHC 32.6 RDW 13.5 Plt Count 310 MPV 9.5 Immature Gran % (Auto) 1.6 H Neut % (Auto) 81.6 H Lymph % (Auto) 10.9 L [place] % (Auto) 5.2 Eos % (Auto) 0.5 Baso % (Auto) 0.2 Lymph # (Auto) 0.91 [place] # (Auto) 0.4 Eos # (Auto) 0.0 Baso # (Auto) 0.0 Abs Immat Gran (auto) 0.13 H Absolute Neuts (auto) 6.8 H Absolute Nucleated RBC 0.000 Nucleated RBC % 0.0 Sodium 134 L Potassium 4.1 Chloride 98 Carbon Dioxide 31 H Anion Gap 5 BUN 23 H Creatinine 0.46 L Estim Creat Clear Calc Not Reportable Estimated GFR > 60 Glucose 88 POC Capillary Glucose 89 Calcium 8.2 L Magnesium 1.9 Iron 43 TIBC 200 L % Saturation 22 Ferritin 266.00 H Total Bilirubin 0.3 AST 31 ALT 35 Alkaline Phosphatase 84 Total Protein 6.0 L Albumin 3.1 L Vancomycin Trough < 5.0 L
[2024-08-17 12:09] LABS: Glucose Point of Care 89 mg/dl (65-105)
--- NOTE | 2024-08-17 13:02 | PCOTNOTE ---
Attempted to see Patient at this time. Patient sleeping, awoke and stated she just finished showering with nursing staff and is worn out, Patient declines to participate this afternoon. Per RN, Patient has had a lot of activity today.
[2024-08-17] MEDS: AMINO ACIDS 5%/D15W/E-LYTES/CA 1,000 ML with MULTIVITAMINS-12 INJ VIAL 1 1.25 ML, MULTI... 50 ML IV CONT (14:12)
[2024-08-17] MEDS: FAT EMULSIONS IV 20% 250 ML 20.83 ML IVPB (14:12)
[2024-08-17 18:22] LABS: Glucose Point of Care 122 mg/dl (65-105)
[2024-08-17] MEDS: HYDROmorphone HCL INJ (*CRX) 1 MG/ML SYR 0.5 MG IV PUSH (19:31)
[2024-08-18] VITALS (11 sets, daily range): BP systolic 107–112; BP diastolic 40–61; PULSE 83–88; RESP 16–18; TEMP 36.4–37.4; O2SAT 94–99
[2024-08-18 00:05] LABS: Glucose Point of Care 117 mg/dl (65-105)
[2024-08-18] MEDS: IPRATROPIUM 0.5 MG/ALBUTEROL SULFATE 2.5 MG AMPUL.NEB 3 ML INHALATION ×4 (02:08→21:31)
[2024-08-18] MEDS: CENTRAL LINE FLUSH 10 ML IV PUSH ×3 (05:11→20:43)
[2024-08-18] MEDS: METOCLOPRAMIDE HCL INJ 10 MG/2 ML VIAL 5 MG IV PUSH ×4 (05:12→23:24)
[2024-08-18] MEDS: dexAMETHasone SOD PHOS INJ 4 MG/ML VIAL IV PUSH ×3 (05:12→20:40)
[2024-08-18 05:19] LABS: Glucose Point of Care 98 mg/dl (65-105)
[2024-08-18 05:41] LABS: Basophils Percent Auto 0.4 % (0.2-1.2); Eosinophils Percent Auto 0.2 % (0-4.4); Hematocrit 26.1 % (37.0-47.0); Hemoglobin 8.5 g/dL (12.0-15.0); Immature Granulocyte Percent A 1.2 % (0-0.5); Lymphocytes Absolute Auto 1.05 K/mm3 (0.9-3.2); Lymphocytes Percent Auto 12.5 % (18.3-44.2); Mean Corpuscular HGB Conc 32.6 g/dl (32-36); Mean Corpuscular Hemoglobin 32.8 pg (26-34); Mean Corpuscular Volume 100.8 fl (80-100); Mean Platelet Volume 9.4 fl (7.4-10.4); Monocytes Absolute Auto 0.5 K/mm3 (0.1-0.6); Monocytes Percent Auto 6.3 % (2.6-8.5); Neutrophils Absolute Auto 6.7 K/mm3 (1.3-6.7); Neutrophils Percent Auto 79.4 % (45.5-73.1); Platelet Count Result 397 k/mm3 (150-375); Red Blood Count 2.59 M/mm3 (4.2-5.4); Red Cell Distribution Width 13.8 % (11.5-14.5); White Blood Count 8.4 K/mm3 (4.5-10.0)
[2024-08-18 05:51] LABS: Alanine Aminotransferase 35 U/L (6-35); Alkaline Phosphatase 83 U/L (38-126); Anion Gap 9 mmol/L (4-12); Aspartate Amino Transferase 32 U/L (14-36); Bilirubin,Total 0.3 mg/dL (0.2-1.3); Blood Urea Nitrogen 24 mg/dL (7-17); Calcium 8.2 mg/dL (8.4-10.2); Carbon Dioxide 28 mmol/L (22-30); Chloride 96 mmol/L (98-107); Estimated Glomerular Filt Rate > 60; Glucose 98 mg/dL (65-110); Potassium 4.2 mmol/L (3.4-5.0); Sodium 133 mmol/L (137-145)
[2024-08-18 06:03] LABS: Iron 52 ug/dL (37-170)
[2024-08-18 06:14] LABS: Percent Iron Saturation 24 % (20-50)
[2024-08-18 07:16] LABS: Folic Acid 5.6 ng/mL (2.76->20)
[2024-08-18 08:19] LABS: Glucose Point of Care 120 mg/dl (65-105)
[2024-08-18] MEDS: LIDOCAINE 5% PATCH 1 PATCH TRANSDERM (09:38)
[2024-08-18] MEDS: PHENYTOIN SOD 250 MG/5 ML 225 MG IV PUSH ×2 (09:39→20:34)
[2024-08-18] MEDS: BISACODYL 10 MG SUPPOSITORY RECTAL (09:39)
[2024-08-18] MEDS: ENOXAPARIN 40 MG/0.4 ML SYRINGE SUB-Q (09:39)
[2024-08-18] MEDS: PANTOPRAZOLE SODIUM IV 40 MG VIAL IV PUSH ×2 (09:39→20:34)
[2024-08-18] MEDS: FUROSEMIDE 40 MG TABLET PO (09:40)
--- NOTE | 2024-08-18 11:36 | P.PNGS_ITS ---
Progress Note: A&P Assessment and Plan (1) Ileus, postoperative: Code(s): K91.89 - Other postprocedural complications and disorders of digestive system; K56.7 - Ileus, unspecified Status: Acute Assessment and Plan: Continues to slowly improve. Tolerating tube feedings at a rate of 30 cc/hr. Will advance to 40 cc/hr, which is her goal rate. Continue Reglan. Will switch Dulcolax to PRN. TPN stopped by Hospitalist this morning. Continue diuresing with furosemide 40 mg PO daily for now. Would recommend trying to titrate the patient off the IV dexamethasone. Continue PT/OT and increasing activity/strength. (2) Small bowel obstruction: Code(s): K56.609 - Unspecified intestinal obstruction, unspecified as to partial versus complete obstruction Status: Acute Assessment and Plan: Resolved (3) Incarcerated left inguinal hernia: Code(s): K40.30 - Unilateral inguinal hernia, with obstruction, without gangrene, not specified as recurrent Status: Acute Assessment and Plan: Status post open incarcerated femoral hernia repair without mesh. Incision healing well. Repair intact. (4) Malnutrition: Code(s): E46 - Unspecified protein-calorie malnutrition Status: Acute Plan I have discussed the patient's case and plan of care with Dr. Jett. Subjective Subjective Date/Time Seen: 08/18/24 11:36 Patient reports: no new complaints, flatus, bowel movement and afebrile Interval history: Patient denies any abdominal pain, nausea or vomiting. She is mostly complaining of thirst. No shortness of breath. Still off oxygen. Feels like swelling in her feet/ankles is slightly better. Per nursing, she has tolerated her tube feeding at goal rate of 30 cc/hr overnight and this morning with no significant residuals. Exam Const: General: comfortable and no acute distress Orientation/consciousness: patient oriented x3 GI: Inspection: incision (dry and whitley intact, small area of slight erythema at top, no drainage) and other (mildly distended) GI Palp: Yes Soft to palpation, Yes Tenderness to palpation present (GI) ( Mild expected tenderness near midline incision) and No Guarding due to palpation present (GI) Auscultation: Hypoactive bowel sounds present Other: Gastrostomy tube with scant yellow drainage at the skin around the tube, no erythema. Urinary Catheter: Urinary Catheter: patent and draining Extrem: General: no calf tenderness and edema bilateral ( equal bilaterally, 1 to 2+ pitting) Objective Data Vital Signs Vital Signs: Vital Signs - 24 hr 08/17/24 13:50 08/17/24 14:00 08/17/24 16:00 Temperature 97.7 F Pulse Rate 86 88 84 Respiratory Rate 16 16 17 Blood Pressure 110/58 L Pulse Oximetry 95 Oxygen Delivery Fraction of Inspired Oxygen 08/17/24 20:00 08/17/24 20:08 08/17/24 20:08 Temperature Pulse Rate 81 Respiratory Rate 16 Blood Pressure Pulse Oximetry 97 Oxygen Delivery Room Air Room Air Fraction of Inspired Oxygen 21 08/17/24 20:15 08/17/24 20:57 08/18/24 02:08 Temperature 98.5 F Pulse Rate 83 75 84 Respiratory Rate 16 16 16 Blood Pressure 108/47 L Pulse Oximetry 93 Oxygen Delivery Fraction of Inspired Oxygen 08/18/24 02:16 08/18/24 05:25 08/18/24 08:56 Temperature 97.6 F Pulse Rate 86 85 Respiratory Rate 16 16 Blood Pressure 107/40 L Pulse Oximetry 99 98 Oxygen Delivery Room Air Fraction of Inspired Oxygen 08/18/24 08:56 08/18/24 09:05 Temperature Pulse Rate 85 87 Respiratory Rate 16 16 Blood Pressure Pulse Oximetry Oxygen Delivery Fraction of Inspired Oxygen Intake/Output Intake/Output: Intake & Output 08/15/24 08/16/24 08/17/24 08/18/24 23:59 23:59 23:59 23:59 Intake Total 2575.0 1594.2 1252.5 0 Output Total 400 1050 1520 700 Balance 2175.0 544.2 -267.5 -700 Meds/Results Medications: Active Medications Generic Name Dose Route Start Last Admin Trade Name Freq PRN Reason Stop Dose Admin Albuterol/Ipratropium 3 ml 08/15/24 14:00 08/18/24 08:56 Ipratropium 0.5 Mg/Albuterol Sulfate 2.5 Mg Ampul.Neb 3 Ml INHALATION 3 ml Q6HRT MORGAN Administration Bisacodyl 10 mg 08/15/24 09:00 08/18/24 09:39 Bisacodyl 10 Mg Suppository RECTAL 10 mg QAM MORGAN Administration Dexamethasone Sodium Phosphate 4 mg 08/15/24 18:00 08/18/24 11:22 Dexamethasone Sod Phos Inj 4 Mg/Ml Vial IV PUSH 4 mg Q6HR MORGAN Administration Dextrose 12.5 gm 08/09/24 07:57 Dextrose 50% 25 Gm/50 Ml Syringe IV PUSH PRN PRN Hypoglycemia Protocol Enoxaparin Sodium 40 mg 08/05/24 09:00 08/18/24 09:39 Enoxaparin 40 Mg/0.4 Ml Syringe SUB-Q 40 mg DAILY MORGAN Administration Furosemide 40 mg 08/16/24 09:00 08/18/24 09:40 Furosemide 40 Mg Tablet PO 40 mg DAILY MORGAN Administration Glucagon 1 mg 08/09/24 07:57 Glucagon For Inj 1 Mg Vial IM PRN PRN Hypoglycemia Protocol Glucose 15 gm 08/09/24 07:57 Glucose Oral Gel 15 Gm Of Glucse In 37.5 Gm Tube PO PRN PRN Hypoglycemia Protocol Hydromorphone HCl 0.5 mg 08/09/24 11:55 08/17/24 19:31 Hydromorphone Hcl Inj (*Crx) 1 Mg/Ml Syr IV PUSH 0.5 mg Q2H PRN Administration Pain Rated 7-10 Dextrose 1,000 mls @ 100 mls/hr 08/09/24 07:57 Dextrose 5% 1,000 Ml IVPB PRN PRN Hypoglycemia Protocol Insulin Aspart 2 - 5 units 08/09/24 12:00 08/18/24 05:11 Insulin Aspart (*Bkc) 100 Units/Ml SUB-Q Not Given Q6HR MORGAN Protocol Lidocaine 1 patch 08/04/24 10:25 08/17/24 09:29 Lidocaine 5% Patch TRANSDERM 1 patch DAILY MORGAN Administration Lidocaine 1 patch 08/15/24 09:00 08/18/24 09:38 Lidocaine 5% Patch TRANSDERM 1 patch DAILY MORGAN Administration Metoclopramide HCl 5 mg 08/13/24 18:00 08/18/24 11:22 Metoclopramide Hcl Inj 10 Mg/2 Ml Vial IV PUSH 5 mg Q6HR MORGAN Administration Naloxone HCl 0.1 mg 08/08/24 05:45 Naloxone Hcl 0.4 Mg/Ml Vial IV PUSH Q2M PRN Opiate Reversal Ondansetron HCl 4 mg 08/03/24 15:38 08/15/24 20:54 Ondansetron Inj 4 Mg/2 Ml Vial IV PUSH 4 mg Q4H PRN Administration Nausea Pantoprazole Sodium 40 mg 08/12/24 21:00 08/18/24 09:39 Pantoprazole Sodium Iv 40 Mg Vial IV PUSH 40 mg Q12HR MORGAN Administration Phenytoin Sodium 225 mg 08/07/24 21:15 08/18/24 09:39 Phenytoin Sod 250 Mg/5 Ml Vial (*Bkc) IV PUSH 225 mg Q12HR MORGAN Administration Sodium Chloride 20 ml 08/06/24 23:57 08/07/24 06:05 Central Line Flush IV PUSH 20 ml PRN PRN Administration after blood draws Sodium Chloride 10 ml 08/06/24 23:57 Central Line Flush IV PUSH PRN PRN with TPN bag changes Sodium Chloride 10 ml 08/07/24 06:00 08/18/24 05:11 Central Line Flush IV PUSH 10 ml Q8HR MORGAN Administration Radiology Results: ITS Impressions Abdomen/Pelvis CT 08/08/24 06:07 Impression: Findings highly suspicious for extensive bowel ischemia, extensive small bowel and gastric pneumatosis and extensive portal venous gas. Extensive dilatation of small bowel loops and stomach with decompression of large bowel. Transition point not well delineated, but findings are highly suspicious for distal small bowel obstruction. NG tube tip at the GE junction. Further advancement of NG tube into the stomach is required for adequate placement. Small bilateral pleural effusions. Head CT 08/10/24 11:18 IMPRESSION: 1. Normal aging brain. Upper GI Series 08/10/24 13:27 IMPRESSION: Findings within the distal esophagus/proximal stomach for which prior fundoplication is suspected. Esophageal dysmotility and significant esophageal reflux is also detected. Chest X-Ray 08/15/24 10:10 IMPRESSION: Minimal opacification the right lung base suggestive of atelectasis versus pneumonia. Abdomen X-Ray 08/15/24 13:47 IMPRESSION: NO ACUTE ABDOMINAL FINDINGS. Distended bowel loops with no definite evidence of obstruction. Follow-up advised. Labs Labs: Laboratory Results - last 24 hr 08/17/24 08/17/24 08/18/24 12:05 18:16 00:01 WBC RBC Hgb Hct MCV MCH MCHC RDW Plt Count MPV Immature Gran % (Auto) Neut % (Auto) Lymph % (Auto) [place] % (Auto) Eos % (Auto) Baso % (Auto) Lymph # (Auto) [place] # (Auto) Eos # (Auto) Baso # (Auto) Abs Immat Gran (auto) Absolute Neuts (auto) Absolute Nucleated RBC Nucleated RBC % Sodium Potassium Chloride Carbon Dioxide Anion Gap BUN Creatinine Estim Creat Clear Calc Estimated GFR Glucose POC Capillary Glucose 89 122 H 117 H Calcium Magnesium Iron TIBC Ferritin Total Bilirubin AST ALT Alkaline Phosphatase Total Protein Albumin Vitamin B12 Folate 08/18/24 08/18/24 08/18/24 05:09 05:10 08:14 WBC 8.4 RBC 2.59 L Hgb 8.5 L Hct 26.1 L MCV 100.8 H MCH 32.8 MCHC 32.6 RDW 13.8 Plt Count 397 H MPV 9.4 Immature Gran % (Auto) 1.2 H Neut % (Auto) 79.4 H Lymph % (Auto) 12.5 L [place] % (Auto) 6.3 Eos % (Auto) 0.2 Baso % (Auto) 0.4 Lymph # (Auto) 1.05 [place] # (Auto) 0.5 Eos # (Auto) 0.0 Baso # (Auto) 0.0 Abs Immat Gran (auto) 0.10 H Absolute Neuts (auto) 6.7 Absolute Nucleated RBC 0.000 Nucleated RBC % 0.0 Sodium 133 L Potassium 4.2 Chloride 96 L Carbon Dioxide 28 Anion Gap 9 BUN 24 H Creatinine 0.47 L Estim Creat Clear Calc Not Reportable Estimated GFR > 60 Glucose 98 POC Capillary Glucose 98 120 H Calcium 8.2 L Magnesium 2.0 Iron 52 TIBC 214 L Ferritin 203.00 Total Bilirubin 0.3 AST 32 ALT 35 Alkaline Phosphatase 83 Total Protein 6.0 L Albumin 3.0 L Vitamin B12 953.0 H Folate 5.6
[2024-08-18 12:01] LABS: Triglycerides 66 mg/dL (<150)
[2024-08-18 12:24] LABS: Glucose Point of Care 92 mg/dl (65-105)
--- NOTE | 2024-08-18 13:51 | PM.IMPN ---
Progress Note: A&P Assessment and Plan (1) Small bowel obstruction: Code(s): K56.609 - Unspecified intestinal obstruction, unspecified as to partial versus complete obstruction Status: Acute Assessment and Plan: Status post 08/03 Open incarcerated left femoral hernia repair without mesh 08/08 Exploratory laparotomy, gastrostomy tube placement S/p EGD showed intact gastrostomy tube and gastritis Tube feeding now at goal, stopped TPN Start clear fluids and advance as tolerated GI and GEN surgery following (2) Ileus, postoperative: Code(s): K91.89 - Other postprocedural complications and disorders of digestive system; K56.7 - Ileus, unspecified Status: Acute Assessment and Plan: Resolving Tube feeds at goal monitor (3) Incarcerated left inguinal hernia: Code(s): K40.30 - Unilateral inguinal hernia, with obstruction, without gangrene, not specified as recurrent Status: Acute Assessment and Plan: See above (4) EULALIO (acute kidney injury): Code(s): N17.9 - Acute kidney failure, unspecified Status: Acute Assessment and Plan: resolved (5) Sepsis: Code(s): A41.9 - Sepsis, unspecified organism Status: Acute Assessment and Plan: Completed Zosyn. UA was unremarkable 08/08: blood cultures are negative so far CXR shows pneumonia add iv vancomycin (6) Seizures: Code(s): R56.9 - Unspecified convulsions Status: Chronic Assessment and Plan: Continue IV phenytoin (7) Electrolyte abnormality: Code(s): E87.8 - Other disorders of electrolyte and fluid balance, not elsewhere classified Status: Acute Assessment and Plan: Replace potassium (8) Pulmonary edema: Code(s): J81.1 - Chronic pulmonary edema Status: Acute Assessment and Plan: Chest x-ray shows pulmonary edema. Elevated BNP Echo reviewed lasix x1 today for SOB and wheezy lungs (9) Leukocytosis: Code(s): D72.829 - Elevated white blood cell count, unspecified Status: Acute Assessment and Plan: pt on iv zosyn and iv vancomycin added for possible aspiration pneumonia watch cultures Plan Anemia Hb 8.5 Isat 24 iron replete B12 953 and Folate 5.6 DVT prophylaxis on Sq lovenox Subjective Date/time seen: 08/18/24 13:51 Interval history: Comfortable at bedside Tube feeding advance and TPN discontinued Started on PO, clear liquids and advance as tolerated Review of Systems Review of Systems: SOB and wheezy lungs today All systems reviewed & are unremarkable except as noted in HPI and below (HPI) Exam Narrative: General: Frail elderly lady with NG tube in situ and tube feeds Lungs/Chest: BL wheezy lungs Cardiac: RRR. Normal S1 S2. No murmurs Circulation: Palpable pedal pulses, feet are warm Abdomen: Hypoactive bowel sound. Mild tenderness to palpation, gastrostomy tube in place, incision under dressing Extremities: No clubbing or cyanosis, bilateral edema present : Khanna in place Neurologic: Follows commands. Moves all 4 extremities PERRL AO x3 Skin: No Rash Const: General: comfortable and no acute distress Other: The patient is recumbent in a stretcher in the PACU. , female, elderly, modestly ill-appearing. +fatigue. HENMT: Face/Nose/Sinus: Normal nares present Mouth: Yes dry mucous membranes Other: NG in place. Eyes: General: appearance normal, both eyes and all related structures Sclera: sclerae normal Pupils: Equal, round and reactive pupils present EOM: EOMs intact bilaterally Resp: Effort & Inspection: normal respiratory effort Auscultation: clear to auscultation bilaterally Cardio: Rate: regular rate Rhythm: regular rhythm Other: S1-S2 present without murmur, rub, ectopy GI: Other: Abdomen firm, distended. bowel sounds present, Drain in place, serosanguineous output. Skin: General skin exam: normal color and no rashes or lesions noted Wounds: no wounds Neuro: Cranial nerves: Yes Equal, round and reactive pupils present Speech: normal speech Motor exam (neuro): 5/5 motor strength present throughout Sensory Exam: normal sensation Other: A&O x4, mildly somnolent. Extrem: General: normal to inspection Psych: Mental Status: mental status grossly normal Affect: normal affect Other: Good insight and judgment, pleasant Objective Data Vital Signs Vital Signs: Vital Signs - 24 hr 08/17/24 14:00 08/17/24 16:00 08/17/24 20:00 Temperature 97.7 F Pulse Rate 88 84 Respiratory Rate 16 17 Blood Pressure 110/58 L Pulse Oximetry 95 Oxygen Delivery Room Air Fraction of Inspired Oxygen 08/17/24 20:08 08/17/24 20:08 08/17/24 20:15 Temperature Pulse Rate 81 83 Respiratory Rate 16 16 Blood Pressure Pulse Oximetry 97 Oxygen Delivery Room Air Fraction of Inspired Oxygen 21 08/17/24 20:57 08/18/24 02:08 08/18/24 02:16 Temperature 98.5 F Pulse Rate 75 84 86 Respiratory Rate 16 16 16 Blood Pressure 108/47 L Pulse Oximetry 93 Oxygen Delivery Fraction of Inspired Oxygen 08/18/24 05:25 08/18/24 08:56 08/18/24 08:56 Temperature 97.6 F Pulse Rate 85 85 Respiratory Rate 16 16 Blood Pressure 107/40 L Pulse Oximetry 99 98 Oxygen Delivery Room Air Fraction of Inspired Oxygen 08/18/24 09:05 Temperature Pulse Rate 87 Respiratory Rate 16 Blood Pressure Pulse Oximetry Oxygen Delivery Fraction of Inspired Oxygen Intake/Output Intake/Output: Intake & Output 08/15/24 08/16/24 08/17/24 08/18/24 23:59 23:59 23:59 23:59 Intake Total 2575.0 1594.2 1252.5 0 Output Total 400 1050 1520 700 Balance 2175.0 544.2 -267.5 -700 Meds/Results Medications: Active Medications Generic Name Dose Route Start Last Admin Trade Name Freq PRN Reason Stop Dose Admin Acetaminophen 650 mg 08/18/24 13:39 Acetaminophen 325 Mg Tablet FEED TUBE Q4H PRN Mild Pain (1-3) or Fever Hydrocodone Bitart/Acetaminophen 1 tab 08/18/24 13:39 Hydrocodone/Acetaminophen (*Crx) 5-325 Mg Tablet FEED TUBE Q4H PRN Pain Rated 4-6 Albuterol/Ipratropium 3 ml 08/15/24 14:00 08/18/24 08:56 Ipratropium 0.5 Mg/Albuterol Sulfate 2.5 Mg Ampul.Neb 3 Ml INHALATION 3 ml Q6HRT MORGAN Administration Bisacodyl 10 mg 08/15/24 09:00 08/18/24 09:39 Bisacodyl 10 Mg Suppository RECTAL 10 mg QAM MORGAN Administration Dexamethasone Sodium Phosphate 4 mg 08/15/24 18:00 08/18/24 11:22 Dexamethasone Sod Phos Inj 4 Mg/Ml Vial IV PUSH 4 mg Q6HR MORGAN Administration Dextrose 12.5 gm 08/09/24 07:57 Dextrose 50% 25 Gm/50 Ml Syringe IV PUSH PRN PRN Hypoglycemia Protocol Enoxaparin Sodium 40 mg 08/05/24 09:00 08/18/24 09:39 Enoxaparin 40 Mg/0.4 Ml Syringe SUB-Q 40 mg DAILY MORGAN Administration Furosemide 40 mg 08/16/24 09:00 08/18/24 09:40 Furosemide 40 Mg Tablet PO 40 mg DAILY MORGAN Administration Glucagon 1 mg 08/09/24 07:57 Glucagon For Inj 1 Mg Vial IM PRN PRN Hypoglycemia Protocol Glucose 15 gm 08/09/24 07:57 Glucose Oral Gel 15 Gm Of Glucse In 37.5 Gm Tube PO PRN PRN Hypoglycemia Protocol Hydromorphone HCl 0.5 mg 08/09/24 11:55 08/17/24 19:31 Hydromorphone Hcl Inj (*Crx) 1 Mg/Ml Syr IV PUSH 0.5 mg Q2H PRN Administration Pain Rated 7-10 Dextrose 1,000 mls @ 100 mls/hr 08/09/24 07:57 Dextrose 5% 1,000 Ml IVPB PRN PRN Hypoglycemia Protocol Insulin Aspart 2 - 5 units 08/09/24 12:00 08/18/24 11:51 Insulin Aspart (*Bkc) 100 Units/Ml SUB-Q Not Given Q6HR MORGAN Protocol Lidocaine 1 patch 08/04/24 10:25 08/17/24 09:29 Lidocaine 5% Patch TRANSDERM 1 patch DAILY MORGAN Administration Lidocaine 1 patch 08/15/24 09:00 08/18/24 09:38 Lidocaine 5% Patch TRANSDERM 1 patch DAILY MORGAN Administration Metoclopramide HCl 5 mg 08/13/24 18:00 08/18/24 11:22 Metoclopramide Hcl Inj 10 Mg/2 Ml Vial IV PUSH 5 mg Q6HR MORGAN Administration Naloxone HCl 0.1 mg 08/08/24 05:45 Naloxone Hcl 0.4 Mg/Ml Vial IV PUSH Q2M PRN Opiate Reversal Ondansetron HCl 4 mg 08/03/24 15:38 08/15/24 20:54 Ondansetron Inj 4 Mg/2 Ml Vial IV PUSH 4 mg Q4H PRN Administration Nausea Pantoprazole Sodium 40 mg 08/12/24 21:00 08/18/24 09:39 Pantoprazole Sodium Iv 40 Mg Vial IV PUSH 40 mg Q12HR MORGAN Administration Phenytoin Sodium 225 mg 08/07/24 21:15 08/18/24 09:39 Phenytoin Sod 250 Mg/5 Ml Vial (*Bkc) IV PUSH 225 mg Q12HR MORGAN Administration Sodium Chloride 20 ml 08/06/24 23:57 08/07/24 06:05 Central Line Flush IV PUSH 20 ml PRN PRN Administration after blood draws Sodium Chloride 10 ml 08/06/24 23:57 Central Line Flush IV PUSH PRN PRN with TPN bag changes Sodium Chloride 10 ml 08/07/24 06:00 08/18/24 05:11 Central Line Flush IV PUSH 10 ml Q8HR MORGAN Administration Radiology Results: ITS Impressions Abdomen/Pelvis CT 08/08/24 06:07 Impression: Findings highly suspicious for extensive bowel ischemia, extensive small bowel and gastric pneumatosis and extensive portal venous gas. Extensive dilatation of small bowel loops and stomach with decompression of large bowel. Transition point not well delineated, but findings are highly suspicious for distal small bowel obstruction. NG tube tip at the GE junction. Further advancement of NG tube into the stomach is required for adequate placement. Small bilateral pleural effusions. Head CT 08/10/24 11:18 IMPRESSION: 1. Normal aging brain. Upper GI Series 08/10/24 13:27 IMPRESSION: Findings within the distal esophagus/proximal stomach for which prior fundoplication is suspected. Esophageal dysmotility and significant esophageal reflux is also detected. Chest X-Ray 08/15/24 10:10 IMPRESSION: Minimal opacification the right lung base suggestive of atelectasis versus pneumonia. Abdomen X-Ray 08/15/24 13:47 IMPRESSION: NO ACUTE ABDOMINAL FINDINGS. Distended bowel loops with no definite evidence of obstruction. Follow-up advised. Labs Labs: Laboratory Results - last 24 hr 08/17/24 08/18/24 08/18/24 18:16 00:01 05:05 WBC RBC Hgb Hct MCV MCH MCHC RDW Plt Count MPV Immature Gran % (Auto) Neut % (Auto) Lymph % (Auto) [place] % (Auto) Eos % (Auto) Baso % (Auto) Lymph # (Auto) [place] # (Auto) Eos # (Auto) Baso # (Auto) Abs Immat Gran (auto) Absolute Neuts (auto) Absolute Nucleated RBC Nucleated RBC % Sodium Potassium Chloride Carbon Dioxide Anion Gap BUN Creatinine Estim Creat Clear Calc Estimated GFR Glucose POC Capillary Glucose 122 H 117 H Calcium Magnesium Iron TIBC % Saturation Ferritin Total Bilirubin AST ALT Alkaline Phosphatase Total Protein Albumin Triglycerides 66 Vitamin B12 Folate 08/18/24 08/18/24 08/18/24 05:09 05:10 08:14 WBC 8.4 RBC 2.59 L Hgb 8.5 L Hct 26.1 L MCV 100.8 H MCH 32.8 MCHC 32.6 RDW 13.8 Plt Count 397 H MPV 9.4 Immature Gran % (Auto) 1.2 H Neut % (Auto) 79.4 H Lymph % (Auto) 12.5 L [place] % (Auto) 6.3 Eos % (Auto) 0.2 Baso % (Auto) 0.4 Lymph # (Auto) 1.05 [place] # (Auto) 0.5 Eos # (Auto) 0.0 Baso # (Auto) 0.0 Abs Immat Gran (auto) 0.10 H Absolute Neuts (auto) 6.7 Absolute Nucleated RBC 0.000 Nucleated RBC % 0.0 Sodium 133 L Potassium 4.2 Chloride 96 L Carbon Dioxide 28 Anion Gap 9 BUN 24 H Creatinine 0.47 L Estim Creat Clear Calc Not Reportable Estimated GFR > 60 Glucose 98 POC Capillary Glucose 98 120 H Calcium 8.2 L Magnesium 2.0 Iron 52 TIBC 214 L % Saturation 24 Ferritin 203.00 Total Bilirubin 0.3 AST 32 ALT 35 Alkaline Phosphatase 83 Total Protein 6.0 L Albumin 3.0 L Triglycerides Vitamin B12 953.0 H Folate 5.6 08/18/24 12:18 WBC RBC Hgb Hct MCV MCH MCHC RDW Plt Count MPV Immature Gran % (Auto) Neut % (Auto) Lymph % (Auto) [place] % (Auto) Eos % (Auto) Baso % (Auto) Lymph # (Auto) [place] # (Auto) Eos # (Auto) Baso # (Auto) Abs Immat Gran (auto) Absolute Neuts (auto) Absolute Nucleated RBC Nucleated RBC % Sodium Potassium Chloride Carbon Dioxide Anion Gap BUN Creatinine Estim Creat Clear Calc Estimated GFR Glucose POC Capillary Glucose 92 Calcium Magnesium Iron TIBC % Saturation Ferritin Total Bilirubin AST ALT Alkaline Phosphatase Total Protein Albumin Triglycerides Vitamin B12 Folate Quality VTE Prophylaxis VTE prophylaxis: mechanical ordered
[2024-08-18] MEDS: HYDROcodone/acetaminophen (*CRX) 5-325 MG TABLET 1 TAB FEED TUBE (17:40)
[2024-08-18 17:50] LABS: Glucose Point of Care 107 mg/dl (65-105)
[2024-08-19] VITALS (9 sets, daily range): BP systolic 100–124; BP diastolic 48–56; PULSE 83–99; RESP 16–18; TEMP 36.6–37.1; O2SAT 90–99
[2024-08-19 00:23] LABS: Glucose Point of Care 109 mg/dl (65-105)
[2024-08-19] MEDS: IPRATROPIUM 0.5 MG/ALBUTEROL SULFATE 2.5 MG AMPUL.NEB 3 ML INHALATION ×2 (03:01→20:17)
[2024-08-19] MEDS: HYDROcodone/acetaminophen (*CRX) 5-325 MG TABLET 1 TAB FEED TUBE ×2 (04:31→12:52)
[2024-08-19] MEDS: CENTRAL LINE FLUSH 10 ML IV PUSH ×3 (04:47→20:42)
[2024-08-19] MEDS: METOCLOPRAMIDE HCL INJ 10 MG/2 ML VIAL 5 MG IV PUSH ×3 (04:47→17:18)
[2024-08-19 04:57] LABS: Basophils Percent Auto 0.5 % (0.2-1.2); Eosinophils Percent Auto 0.2 % (0-4.4); Hematocrit 26.9 % (37.0-47.0); Hemoglobin 8.8 g/dL (12.0-15.0); Immature Granulocyte Absolute 0.06 K/mm3 (0.00-0.031); Immature Granulocyte Percent A 0.9 % (0-0.5); Lymphocytes Absolute Auto 1.31 K/mm3 (0.9-3.2); Lymphocytes Percent Auto 20.2 % (18.3-44.2); Mean Corpuscular HGB Conc 32.7 g/dl (32-36); Mean Corpuscular Volume 100.7 fl (80-100); Mean Platelet Volume 9.1 fl (7.4-10.4); Monocytes Absolute Auto 0.6 K/mm3 (0.1-0.6); Monocytes Percent Auto 8.5 % (2.6-8.5); Neutrophils Absolute Auto 4.5 K/mm3 (1.3-6.7); Neutrophils Percent Auto 69.7 % (45.5-73.1); Platelet Count Result 430 k/mm3 (150-375); Red Blood Count 2.67 M/mm3 (4.2-5.4); Red Cell Distribution Width 14.6 % (11.5-14.5); White Blood Count 6.5 K/mm3 (4.5-10.0)
[2024-08-19 05:09] LABS: Alanine Aminotransferase 38 U/L (6-35); Albumin Level 3.2 g/dL (3.5-5.1); Alkaline Phosphatase 90 U/L (38-126); Anion Gap 7 mmol/L (4-12); Aspartate Amino Transferase 43 U/L (14-36); Bilirubin,Total 0.3 mg/dL (0.2-1.3); Blood Urea Nitrogen 23 mg/dL (7-17); Calcium 8.3 mg/dL (8.4-10.2); Carbon Dioxide 30 mmol/L (22-30); Chloride 97 mmol/L (98-107); Estimated Glomerular Filt Rate > 60; Glucose 113 mg/dL (65-110); Magnesium 1.9 mg/dL (1.6-2.3); Potassium 4.1 mmol/L (3.4-5.0); Sodium 134 mmol/L (137-145)
[2024-08-19 05:39] LABS: Glucose Point of Care 102 mg/dl (65-105)
[2024-08-19] MEDS: PHENYTOIN SOD 250 MG/5 ML 225 MG IV PUSH ×2 (08:44→20:41)
[2024-08-19] MEDS: dexAMETHasone SOD PHOS INJ 4 MG/ML VIAL IV PUSH ×2 (08:44→20:41)
[2024-08-19] MEDS: ENOXAPARIN 40 MG/0.4 ML SYRINGE SUB-Q (08:45)
[2024-08-19] MEDS: PANTOPRAZOLE SODIUM IV 40 MG VIAL IV PUSH ×2 (08:45→20:41)
[2024-08-19] MEDS: LIDOCAINE 5% PATCH 1 PATCH TRANSDERM ×2 (08:45)
--- NOTE | 2024-08-19 08:48 | PCSTNOTE ---
Please refer to the Bedside Swallow Evaluation in the EMR. Please note, silent aspiration cannot be ruled out at bedside. The above pt, admitted with abdominal pain with subsequent surgery for SBO & exploratory lap for hiatal hernia with PEG placement, was seen for a swallow evaluation at bedside. Pt is anxious re returning to oral intake as she is afraid of GI issues returning. Pt reported that she aspirated once . Vocal quality was noted to be breathy prior to test trials. Pt was sitting independently at the side of the bed upon entering and was tested in that position. Oral mucosa is slightly dry/normal; natural dentition is in fair/good condition. Cursory oral peripheral exam revealed lingual and labial structures to be within normal limits. She was initially presented with ice chips which she tolerated without any overt s/s of aspiration. She was tested with very small amounts of thin liquids and pudding; The oral stages appeared WNL. No oral leakage or pocketing was noted. During the pharyngeal stage, swallow reflex appeared prompt & laryngeal elevation adequate; however, a wet vocal quality and throat clearing was exhibited after the trial of approximately 3-4 ml of water. No overt s/s of aspiration were exhibited after the pudding trial but concern is present for possible aspiration with the thin liquid. It is therefore recommended that an MBS be completed to further assess swallow ability, determine a safe diet, & appropriate POC if appropriate. General impression: questionable degree of dysphagia due to overt but still subtle s/s of aspiration with thin liquid. Recommendation: MBS; ST spoke with Dr Walden who gave telephone order. Thank you for this referral.
--- NOTE | 2024-08-19 10:27 | P.PN_ITS ---
Progress Note: A&P Assessment and Plan (1) Incarcerated left inguinal hernia: Code(s): K40.30 - Unilateral inguinal hernia, with obstruction, without gangrene, not specified as recurrent Status: Acute Assessment and Plan: Resolved after open repair without mesh (2) Small bowel obstruction: Code(s): K56.609 - Unspecified intestinal obstruction, unspecified as to partial versus complete obstruction Status: Acute Assessment and Plan: Resolved after left incarcerated femoral hernia repair without mesh (3) Ileus, postoperative: Code(s): K91.89 - Other postprocedural complications and disorders of digestive system; K56.7 - Ileus, unspecified Status: Acute Assessment and Plan: Now resolved and she is tolerating tube feeds at her goal rate having bowel movements. (4) Malnutrition: Code(s): E46 - Unspecified protein-calorie malnutrition Status: Acute Assessment and Plan: TPN was stopped yesterday and she is on tube feeds at her goal rate. We will c ontinue tube feeds through her gastrostomy tube through the weekend and speech therapy has stated that she can have thickened liquids. Start thickened liquids and hopefully in next couple days. Tube feeds if she is able to take adequate p.o. intake to support her caloric needs. (5) Physical deconditioning: Code(s): R53.81 - Other malaise Status: Acute Assessment and Plan: She is definitely condition after her long hospitalization and surgical procedures. She is getting up with physical therapy and walking in the hallways. Will have physical therapy make recommendations as to what her needs are and hopefully she can qualify for inpatient rehab. Will likely have her evaluated for inpatient rehab early next week. Subjective Date/time seen: 08/19/24 10:27 Interval history: Patient seems to be doing well this morning. She was up walking with therapy down the hallways for 90ft with a walker and 1 person assist. She seems to be in good spirits. She had a modified barium swallow study this morning showing slight aspiration and recommendations from speech therapy was for thickened liquids. Upon transfer back to the room the patient was noted to have had her gastrostomy tube dislodged. I was immediately notified and I immediately placed a Khanna catheter through the existing tract and reestablished the gastrostomy tube. White blood count is normal. She is having bowel movements. Exam Const: General: comfortable and no acute distress GI: Other: Abdomen is soft and minimally distended. Gastrostomy tube site now has a new Khanna catheter in place. It was sutured in place with silk suture. Midline incision has whitley in place which are clean without redness or drainage. Objective Data Vital Signs Vital Signs: Vital Signs - 24 hr 08/18/24 15:07 08/18/24 15:16 08/18/24 16:00 Temperature 36.5 C Pulse Rate 88 84 83 Respiratory Rate 16 16 16 Blood Pressure 110/61 Pulse Oximetry 98 Oxygen Delivery 08/18/24 20:00 08/18/24 20:39 08/18/24 21:34 Temperature 37.4 C Pulse Rate 87 88 Respiratory Rate 18 16 Blood Pressure 112/50 L Pulse Oximetry 97 Oxygen Delivery Room Air 08/18/24 21:37 08/19/24 03:02 08/19/24 05:06 Temperature 37.1 C Pulse Rate 86 83 Respiratory Rate 16 18 Blood Pressure 100/48 L Pulse Oximetry 94 98 Oxygen Delivery Room Air 08/19/24 08:00 Temperature 36.6 C Pulse Rate 99 Respiratory Rate 18 Blood Pressure 114/55 L Pulse Oximetry 97 Oxygen Delivery Intake/Output Intake/Output: Intake & Output 08/16/24 08/17/24 08/18/24 08/19/24 23:59 23:59 23:59 23:59 Intake Total 1594.2 1252.5 0 0 Output Total 1050 1520 1600 600 Balance 544.2 -267.5 -1600 -600 Meds/Results Medications: Active Medications Generic Name Dose Route Start Last Admin Trade Name Freq PRN Reason Stop Dose Admin Acetaminophen 650 mg 08/18/24 13:39 Acetaminophen 325 Mg Tablet FEED TUBE Q4H PRN Mild Pain (1-3) or Fever Hydrocodone Bitart/Acetaminophen 1 tab 08/18/24 13:39 08/19/24 04:31 Hydrocodone/Acetaminophen (*Crx) 5-325 Mg Tablet FEED TUBE 1 tab Q4H PRN Administration Pain Rated 4-6 Albuterol/Ipratropium 3 ml 08/15/24 14:00 08/19/24 09:19 Ipratropium 0.5 Mg/Albuterol Sulfate 2.5 Mg Ampul.Neb 3 Ml INHALATION Not Given Q6HRT MORGAN Bisacodyl 10 mg 08/18/24 14:02 Bisacodyl 10 Mg Suppository RECTAL QAM PRN Constipation Dexamethasone Sodium Phosphate 4 mg 08/18/24 21:00 08/19/24 08:44 Dexamethasone Sod Phos Inj 4 Mg/Ml Vial IV PUSH 4 mg Q12HR MORGAN Administration Dextrose 12.5 gm 08/09/24 07:57 Dextrose 50% 25 Gm/50 Ml Syringe IV PUSH PRN PRN Hypoglycemia Protocol Enoxaparin Sodium 40 mg 08/05/24 09:00 08/19/24 08:45 Enoxaparin 40 Mg/0.4 Ml Syringe SUB-Q 40 mg DAILY MORGAN Administration Furosemide 40 mg 08/16/24 09:00 08/19/24 08:44 Furosemide 40 Mg Tablet PO 40 mg DAILY MORGAN Administration Glucagon 1 mg 08/09/24 07:57 Glucagon For Inj 1 Mg Vial IM PRN PRN Hypoglycemia Protocol Glucose 15 gm 08/09/24 07:57 Glucose Oral Gel 15 Gm Of Glucse In 37.5 Gm Tube PO PRN PRN Hypoglycemia Protocol Hydromorphone HCl 0.5 mg 08/09/24 11:55 08/17/24 19:31 Hydromorphone Hcl Inj (*Crx) 1 Mg/Ml Syr IV PUSH 0.5 mg Q2H PRN Administration Pain Rated 7-10 Dextrose 1,000 mls @ 100 mls/hr 08/09/24 07:57 Dextrose 5% 1,000 Ml IVPB PRN PRN Hypoglycemia Protocol Insulin Aspart 2 - 5 units 08/09/24 12:00 08/19/24 06:00 Insulin Aspart (*Bkc) 100 Units/Ml SUB-Q Not Given Q6HR [facility] Protocol Lidocaine 1 patch 08/04/24 10:25 08/19/24 08:45 Lidocaine 5% Patch TRANSDERM 1 patch DAILY MORGAN Administration Lidocaine 1 patch 08/15/24 09:00 08/19/24 08:45 Lidocaine 5% Patch TRANSDERM 1 patch DAILY MORGAN Administration Metoclopramide HCl 5 mg 08/13/24 18:00 08/19/24 04:47 Metoclopramide Hcl Inj 10 Mg/2 Ml Vial IV PUSH 5 mg Q6HR MORGAN Administration Naloxone HCl 0.1 mg 08/08/24 05:45 Naloxone Hcl 0.4 Mg/Ml Vial IV PUSH Q2M PRN Opiate Reversal Ondansetron HCl 4 mg 08/03/24 15:38 08/15/24 20:54 Ondansetron Inj 4 Mg/2 Ml Vial IV PUSH 4 mg Q4H PRN Administration Nausea Pantoprazole Sodium 40 mg 08/12/24 21:00 08/19/24 08:45 Pantoprazole Sodium Iv 40 Mg Vial IV PUSH 40 mg Q12HR MORGAN Administration Phenytoin Sodium 225 mg 08/07/24 21:15 08/19/24 08:44 Phenytoin Sod 250 Mg/5 Ml Vial (*Bkc) IV PUSH 225 mg Q12HR MORGAN Administration Sodium Chloride 20 ml 08/06/24 23:57 08/07/24 06:05 Central Line Flush IV PUSH 20 ml PRN PRN Administration after blood draws Sodium Chloride 10 ml 08/06/24 23:57 Central Line Flush IV PUSH PRN PRN with TPN bag changes Sodium Chloride 10 ml 08/07/24 06:00 08/19/24 04:47 Central Line Flush IV PUSH 10 ml Q8HR MORGAN Administration Radiology Results: ITS Impressions Abdomen/Pelvis CT 08/08/24 06:07 Impression: Findings highly suspicious for extensive bowel ischemia, extensive small bowel and gastric pneumatosis and extensive portal venous gas. Extensive dilatation of small bowel loops and stomach with decompression of large bowel. Transition point not well delineated, but findings are highly suspicious for distal small bowel obstruction. NG tube tip at the GE junction. Further advancement of NG tube into the stomach is required for adequate placement. Small bilateral pleural effusions. Head CT 08/10/24 11:18 IMPRESSION: 1. Normal aging brain. Upper GI Series 08/10/24 13:27 IMPRESSION: Findings within the distal esophagus/proximal stomach for which prior fundoplication is suspected. Esophageal dysmotility and significant esophageal reflux is also detected. Chest X-Ray 08/15/24 10:10 IMPRESSION: Minimal opacification the right lung base suggestive of atelectasis versus pneumonia. Abdomen X-Ray 08/15/24 13:47 IMPRESSION: NO ACUTE ABDOMINAL FINDINGS. Distended bowel loops with no definite evidence of obstruction. Follow-up advised. Labs Labs: Laboratory Results - last 24 hr 08/18/24 08/18/24 08/18/24 05:05 05:10 12:18 WBC RBC Hgb Hct MCV MCH MCHC RDW Plt Count MPV Immature Gran % (Auto) Neut % (Auto) Lymph % (Auto) [place] % (Auto) Eos % (Auto) Baso % (Auto) Lymph # (Auto) [place] # (Auto) Eos # (Auto) Baso # (Auto) Abs Immat Gran (auto) Absolute Neuts (auto) Absolute Nucleated RBC Nucleated RBC % Sodium Potassium Chloride Carbon Dioxide Anion Gap BUN Creatinine Estim Creat Clear Calc Estimated GFR Glucose POC Capillary Glucose 92 Calcium Magnesium % Saturation 24 Total Bilirubin AST ALT Alkaline Phosphatase Total Protein Albumin Triglycerides 66 08/18/24 08/19/24 08/19/24 17:48 00:19 04:46 WBC 6.5 RBC 2.67 L Hgb 8.8 L Hct 26.9 L MCV 100.7 H MCH 33.0 MCHC 32.7 RDW 14.6 H Plt Count 430 H MPV 9.1 Immature Gran % (Auto) 0.9 H Neut % (Auto) 69.7 Lymph % (Auto) 20.2 [place] % (Auto) 8.5 Eos % (Auto) 0.2 Baso % (Auto) 0.5 Lymph # (Auto) 1.31 [place] # (Auto) 0.6 Eos # (Auto) 0.0 Baso # (Auto) 0.0 Abs Immat Gran (auto) 0.06 H Absolute Neuts (auto) 4.5 Absolute Nucleated RBC 0.000 Nucleated RBC % 0.0 Sodium 134 L Potassium 4.1 Chloride 97 L Carbon Dioxide 30 Anion Gap 7 BUN 23 H Creatinine 0.50 L Estim Creat Clear Calc Not Reportable Estimated GFR > 60 Glucose 113 H POC Capillary Glucose 107 H 109 H Calcium 8.3 L Magnesium 1.9 % Saturation Total Bilirubin 0.3 AST 43 H ALT 38 H Alkaline Phosphatase 90 Total Protein 6.0 L Albumin 3.2 L Triglycerides 08/19/24 05:09 WBC RBC Hgb Hct MCV MCH MCHC RDW Plt Count MPV Immature Gran % (Auto) Neut % (Auto) Lymph % (Auto) [place] % (Auto) Eos % (Auto) Baso % (Auto) Lymph # (Auto) [place] # (Auto) Eos # (Auto) Baso # (Auto) Abs Immat Gran (auto) Absolute Neuts (auto) Absolute Nucleated RBC Nucleated RBC % Sodium Potassium Chloride Carbon Dioxide Anion Gap BUN Creatinine Estim Creat Clear Calc Estimated GFR Glucose POC Capillary Glucose 102 Calcium Magnesium % Saturation Total Bilirubin AST ALT Alkaline Phosphatase Total Protein Albumin Triglycerides
--- NOTE | 2024-08-19 10:32 | P.OP_ITS ---
Procedure Note - Detailed Date of Procedure 08/19/24 Pre-op Diagnosis Malnutrition, dislodged gastrostomy tube Post-op Diagnosis Same Procedure Performed Bedside replacement of dislodged gastrostomy tube with Khanna catheter through existing tract. Surgeon Matthias Jett MD Anesthesia None Indications Patient is a 69-year-old female who incarcerated left femoral hernia repair causing small-bowel obstruction. That was repaired emergently without the use of mesh. Unfortunate she subsequent developed a postoperative ileus which was prolonged. Also had [address] scan findings concerning for pneumatosis of the stomach wall and she was emergently operated on by . There is no finding of necrotic stomach or small bowel perforation at that time. Due to the inability to pass a nasogastric tube adequately at that time a open gastrostomy tube was placed to decompress the stomach. The tube has been placed since her surgery and her ileus is now resolved. However it is still being used for tube feeds and to decompress the stomach if needed. The gastrostomy tube was dislodged this morning as the patient was getting her modified barium swallow study in Radiology. I was immediately notified and I was able to reaccess the tract via Khanna catheter to reestablish another gastrostomy tube. Findings In the left upper quadrant a fresh gastrostomy tube site was noted draining some tube feeds and gastric contents. I was able to easily pass a 16 [place]ian Khanna catheter through the tract into likely the gastric lumen. The balloon on the catheter was insufflated with 10cc of saline. The catheter was then secured to the skin of a 0 silk suture. Water-soluble study to confirm that the catheter was in the lumen of the stomach is pending at the time of dictation. Description of Procedure After consent was obtained from the patient she was placed supine in the hospital bed. The area the newly this large gastrostomy tube site was prepped with sterile Betadine. A 16 Lithuanian Khanna catheter was placed through the existing gastrostomy tube tract and passed easily we will into the stomach. I then insufflated the balloon to the Khanna catheter with 10cc of saline solution. The catheter was then pulled up to the undersurface of the anterior abdominal wall. I then secured the catheter to the skin by placement of a 0 silk suture. The catheter was then plugged. The procedure was done percutaneously without the use of imaging studies or endoscopy during the bedside replacement of the tube. The gastrostomy tube site was dressed and patient was sent down to Radiology for a water-soluble gastrostomy tube study to confirm that the tube was within the fundus of the stomach. Implants Sixteen Lithuanian Khnana catheter placed through the existing gastrostomy tube tract. Estimated Blood Loss 0 Urine Output 0 Packing No Pathology None sent Complications No immediate complications Condition Stable Disposition PACU [facility] Billing Surgery - Charge Forward: Surgery Billing
--- NOTE | 2024-08-19 10:37 | P.PNIM_ITS ---
Progress Note: A&P Assessment and Plan (1) Small bowel obstruction: Code(s): K56.609 - Unspecified intestinal obstruction, unspecified as to partial versus complete obstruction Status: Acute Assessment and Plan: Status post 08/03 Open incarcerated left femoral hernia repair without mesh 08/08 Exploratory laparotomy, gastrostomy tube placement S/p EGD showed intact gastrostomy tube and gastritis Tube feeding now at goal, s/p TPN advance diet per speech recs Discussed with surgery at bedside okay with advancing diet GI and GEN surgery following (2) Ileus, postoperative: Code(s): K91.89 - Other postprocedural complications and disorders of digestive system; K56.7 - Ileus, unspecified Status: Acute Assessment and Plan: Resolving Tube feeds at goal monitor (3) Incarcerated left inguinal hernia: Code(s): K40.30 - Unilateral inguinal hernia, with obstruction, without gangrene, not specified as recurrent Status: Acute Assessment and Plan: See above (4) EULALIO (acute kidney injury): Code(s): N17.9 - Acute kidney failure, unspecified Status: Acute Assessment and Plan: resolved (5) Sepsis: Code(s): A41.9 - Sepsis, unspecified organism Status: Acute Assessment and Plan: Completed Zosyn. UA was unremarkable 08/08: blood cultures are negative so far CXR shows pneumonia add iv vancomycin (6) Seizures: Code(s): R56.9 - Unspecified convulsions Status: Chronic Assessment and Plan: Continue IV phenytoin (7) Electrolyte abnormality: Code(s): E87.8 - Other disorders of electrolyte and fluid balance, not elsewhere classified Status: Acute Assessment and Plan: Replace potassium (8) Pulmonary edema: Code(s): J81.1 - Chronic pulmonary edema Status: Acute Assessment and Plan: Chest x-ray shows pulmonary edema. Elevated BNP Echo reviewed lasix x1 today for SOB and wheezy lungs (9) Leukocytosis: Code(s): D72.829 - Elevated white blood cell count, unspecified Status: Acute Assessment and Plan: pt on iv zosyn and iv vancomycin added for possible aspiration pneumonia watch cultures Plan Anemia Hb 8.5 Isat 24 iron replete B12 953 and Folate 5.6 DVT prophylaxis on Sq lovenox Discharge planning from Thursday Subjective Date/time seen: 08/19/24 10:37 Interval history: Patient comfortable at bedside Discussed with surgery at bedside and he noted patient should be able to tolerate oral diet prior to discharge NOw at Tube feeding goal awaiting MBS by speech therapy Review of Systems Review of Systems: SOB and wheezy lungs today All systems reviewed & are unremarkable except as noted in HPI and below (HPI) Exam Narrative: General: Frail elderly lady with NG tube in situ and tube feeds Lungs/Chest: BL wheezy lungs Cardiac: RRR. Normal S1 S2. No murmurs Circulation: Palpable pedal pulses, feet are warm Abdomen: Hypoactive bowel sound. Mild tenderness to palpation, gastrostomy tub e in place, incision under dressing Extremities: No clubbing or cyanosis, bilateral edema present : Khanna in place Neurologic: Follows commands. Moves all 4 extremities PERRL AO x3 Skin: No Rash Const: General: comfortable and no acute distress Other: The patient is recumbent in a stretcher in the PACU. , female, elderly, modestly ill-appearing. +fatigue. HENMT: Face/Nose/Sinus: Normal nares present Mouth: Yes dry mucous membranes Other: NG in place. Eyes: General: appearance normal, both eyes and all related structures Sclera: sclerae normal Pupils: Equal, round and reactive pupils present EOM: EOMs intact bilaterally Resp: Effort & Inspection: normal respiratory effort Auscultation: clear to auscultation bilaterally Cardio: Rate: regular rate Rhythm: regular rhythm Other: S1-S2 present without murmur, rub, ectopy GI: Other: Abdomen firm, distended. bowel sounds present, Drain in place, serosanguineous output. Skin: General skin exam: normal color and no rashes or lesions noted Wounds: no wounds Neuro: Cranial nerves: Yes Equal, round and reactive pupils present Speech: normal speech Motor exam (neuro): 5/5 motor strength present throughout Sensory Exam: normal sensation Other: A&O x4, mildly somnolent. Extrem: General: normal to inspection Psych: Mental Status: mental status grossly normal Affect: normal affect Other: Good insight and judgment, pleasant Objective Data Vital Signs Vital Signs: Vital Signs - 24 hr 08/18/24 15:07 08/18/24 15:16 08/18/24 16:00 Temperature 97.7 F Pulse Rate 88 84 83 Respiratory Rate 16 16 16 Blood Pressure 110/61 Pulse Oximetry 98 Oxygen Delivery 08/18/24 20:00 08/18/24 20:39 08/18/24 21:34 Temperature 99.3 F Pulse Rate 87 88 Respiratory Rate 18 16 Blood Pressure 112/50 L Pulse Oximetry 97 Oxygen Delivery Room Air 08/18/24 21:37 08/19/24 03:02 08/19/24 05:06 Temperature 98.8 F Pulse Rate 86 83 Respiratory Rate 16 18 Blood Pressure 100/48 L Pulse Oximetry 94 98 Oxygen Delivery Room Air 08/19/24 08:00 Temperature 97.9 F Pulse Rate 99 Respiratory Rate 18 Blood Pressure 114/55 L Pulse Oximetry 97 Oxygen Delivery Intake/Output Intake/Output: Intake & Output 08/16/24 08/17/24 08/18/24 08/19/24 23:59 23:59 23:59 23:59 Intake Total 1594.2 1252.5 0 0 Output Total 1050 1520 1600 600 Balance 544.2 -267.5 -1600 -600 Meds/Results Medications: Active Medications Generic Name Dose Route Start Last Admin Trade Name Freq PRN Reason Stop Dose Admin Acetaminophen 650 mg 08/18/24 13:39 Acetaminophen 325 Mg Tablet FEED TUBE Q4H PRN Mild Pain (1-3) or Fever Hydrocodone Bitart/Acetaminophen 1 tab 08/18/24 13:39 08/19/24 04:31 Hydrocodone/Acetaminophen (*Crx) 5-325 Mg Tablet FEED TUBE 1 tab Q4H PRN Administration Pain Rated 4-6 Albuterol/Ipratropium 3 ml 08/15/24 14:00 08/19/24 09:19 Ipratropium 0.5 Mg/Albuterol Sulfate 2.5 Mg Ampul.Neb 3 Ml INHALATION Not Given Q6HRT MORGAN Bisacodyl 10 mg 08/18/24 14:02 Bisacodyl 10 Mg Suppository RECTAL QAM PRN Constipation Dexamethasone Sodium Phosphate 4 mg 08/18/24 21:00 08/19/24 08:44 Dexamethasone Sod Phos Inj 4 Mg/Ml Vial IV PUSH 4 mg Q12HR MORGAN Administration Dextrose 12.5 gm 08/09/24 07:57 Dextrose 50% 25 Gm/50 Ml Syringe IV PUSH PRN PRN Hypoglycemia Protocol Enoxaparin Sodium 40 mg 08/05/24 09:00 08/19/24 08:45 Enoxaparin 40 Mg/0.4 Ml Syringe SUB-Q 40 mg DAILY MORGAN Administration Furosemide 40 mg 08/16/24 09:00 08/19/24 08:44 Furosemide 40 Mg Tablet PO 40 mg DAILY MORGAN Administration Glucagon 1 mg 08/09/24 07:57 Glucagon For Inj 1 Mg Vial IM PRN PRN Hypoglycemia Protocol Glucose 15 gm 08/09/24 07:57 Glucose Oral Gel 15 Gm Of Glucse In 37.5 Gm Tube PO PRN PRN Hypoglycemia Protocol Hydromorphone HCl 0.5 mg 08/09/24 11:55 08/17/24 19:31 Hydromorphone Hcl Inj (*Crx) 1 Mg/Ml Syr IV PUSH 0.5 mg Q2H PRN Administration Pain Rated 7-10 Dextrose 1,000 mls @ 100 mls/hr 08/09/24 07:57 Dextrose 5% 1,000 Ml IVPB PRN PRN Hypoglycemia Protocol Insulin Aspart 2 - 5 units 08/09/24 12:00 08/19/24 06:00 Insulin Aspart (*Bkc) 100 Units/Ml SUB-Q Not Given Q6HR MORGAN Protocol Lidocaine 1 patch 08/04/24 10:25 08/19/24 08:45 Lidocaine 5% Patch TRANSDERM 1 patch DAILY MORGAN Administration Lidocaine 1 patch 08/15/24 09:00 08/19/24 08:45 Lidocaine 5% Patch TRANSDERM 1 patch DAILY MORGAN Administration Metoclopramide HCl 5 mg 08/13/24 18:00 08/19/24 04:47 Metoclopramide Hcl Inj 10 Mg/2 Ml Vial IV PUSH 5 mg Q6HR MORGAN Administration Naloxone HCl 0.1 mg 08/08/24 05:45 Naloxone Hcl 0.4 Mg/Ml Vial IV PUSH Q2M PRN Opiate Reversal Ondansetron HCl 4 mg 08/03/24 15:38 08/15/24 20:54 Ondansetron Inj 4 Mg/2 Ml Vial IV PUSH 4 mg Q4H PRN Administration Nausea Pantoprazole Sodium 40 mg 08/12/24 21:00 08/19/24 08:45 Pantoprazole Sodium Iv 40 Mg Vial IV PUSH 40 mg Q12HR MORGAN Administration Phenytoin Sodium 225 mg 08/07/24 21:15 08/19/24 08:44 Phenytoin Sod 250 Mg/5 Ml Vial (*Bkc) IV PUSH 225 mg Q12HR MORGAN Administration Sodium Chloride 20 ml 08/06/24 23:57 08/07/24 06:05 Central Line Flush IV PUSH 20 ml PRN PRN Administration after blood draws Sodium Chloride 10 ml 08/06/24 23:57 Central Line Flush IV PUSH PRN PRN with TPN bag changes Sodium Chloride 10 ml 08/07/24 06:00 08/19/24 04:47 Central Line Flush IV PUSH 10 ml Q8HR MORGAN Administration Radiology Results: ITS Impressions Abdomen/Pelvis CT 08/08/24 06:07 Impression: Findings highly suspicious for extensive bowel ischemia, extensive small bowel and gastric pneumatosis and extensive portal venous gas. Extensive dilatation of small bowel loops and stomach with decompression of large bowel. Transition point not well delineated, but findings are highly suspicious for distal small bowel obstruction. NG tube tip at the GE junction. Further advancement of NG tube into the stomach is required for adequate placement. Small bilateral pleural effusions. Head CT 08/10/24 11:18 IMPRESSION: 1. Normal aging brain. Upper GI Series 08/10/24 13:27 IMPRESSION: Findings within the distal esophagus/proximal stomach for which prior fundoplication is suspected. Esophageal dysmotility and significant esophageal reflux is also detected. Chest X-Ray 08/15/24 10:10 IMPRESSION: Minimal opacification the right lung base suggestive of atelectasis versus pneumonia. Abdomen X-Ray 08/15/24 13:47 IMPRESSION: NO ACUTE ABDOMINAL FINDINGS. Distended bowel loops with no definite evidence of obstruction. Follow-up advised. Labs Labs: Laboratory Results - last 24 hr 08/18/24 08/18/24 08/18/24 05:05 05:10 12:18 WBC RBC Hgb Hct MCV MCH MCHC RDW Plt Count MPV Immature Gran % (Auto) Neut % (Auto) Lymph % (Auto) [place] % (Auto) Eos % (Auto) Baso % (Auto) Lymph # (Auto) [place] # (Auto) Eos # (Auto) Baso # (Auto) Abs Immat Gran (auto) Absolute Neuts (auto) Absolute Nucleated RBC Nucleated RBC % Sodium Potassium Chloride Carbon Dioxide Anion Gap BUN Creatinine Estim Creat Clear Calc Estimated GFR Glucose POC Capillary Glucose 92 Calcium Magnesium % Saturation 24 Total Bilirubin AST ALT Alkaline Phosphatase Total Protein Albumin Triglycerides 66 08/18/24 08/19/24 08/19/24 17:48 00:19 04:46 WBC 6.5 RBC 2.67 L Hgb 8.8 L Hct 26.9 L MCV 100.7 H MCH 33.0 MCHC 32.7 RDW 14.6 H Plt Count 430 H MPV 9.1 Immature Gran % (Auto) 0.9 H Neut % (Auto) 69.7 Lymph % (Auto) 20.2 [place] % (Auto) 8.5 Eos % (Auto) 0.2 Baso % (Auto) 0.5 Lymph # (Auto) 1.31 [place] # (Auto) 0.6 Eos # (Auto) 0.0 Baso # (Auto) 0.0 Abs Immat Gran (auto) 0.06 H Absolute Neuts (auto) 4.5 Absolute Nucleated RBC 0.000 Nucleated RBC % 0.0 Sodium 134 L Potassium 4.1 Chloride 97 L Carbon Dioxide 30 Anion Gap 7 BUN 23 H Creatinine 0.50 L Estim Creat Clear Calc Not Reportable Estimated GFR > 60 Glucose 113 H POC Capillary Glucose 107 H 109 H Calcium 8.3 L Magnesium 1.9 % Saturation Total Bilirubin 0.3 AST 43 H ALT 38 H Alkaline Phosphatase 90 Total Protein 6.0 L Albumin 3.2 L Triglycerides 08/19/24 05:09 WBC RBC Hgb Hct MCV MCH MCHC RDW Plt Count MPV Immature Gran % (Auto) Neut % (Auto) Lymph % (Auto) [place] % (Auto) Eos % (Auto) Baso % (Auto) Lymph # (Auto) [place] # (Auto) Eos # (Auto) Baso # (Auto) Abs Immat Gran (auto) Absolute Neuts (auto) Absolute Nucleated RBC Nucleated RBC % Sodium Potassium Chloride Carbon Dioxide Anion Gap BUN Creatinine Estim Creat Clear Calc Estimated GFR Glucose POC Capillary Glucose 102 Calcium Magnesium % Saturation Total Bilirubin AST ALT Alkaline Phosphatase Total Protein Albumin Triglycerides Quality VTE Prophylaxis VTE prophylaxis: mechanical ordered
--- NOTE | 2024-08-19 11:24 | PCSTNOTE ---
Please refer to the Modified Barium Swallow (MBS) Evaluation in the EMR. Pt was seen for a Modified Barium Swallow evaluation due to aspiration suspected during bedside swallow evaluation this am. The patient was seated for a lateral view and presented with 5cc of thin liquid barium via spoon, pudding consistency barium via a spoon, small pieces of cracker coated with barium pudding via spoon, moderately thick liquids via a spoon and cup sip, and mildly thick liquids via a spoon. With the 5cc amount of thin liquid, contents diffusely spilled into the pharynx and open laryngeal vestibule and was aspirated slightly before/just as swallow was triggered but aspiration essentially occurred just slightly before the actual swallow occurred. Pt responded with coughing but pt was unable to clear any aspirate. Pudding and moderately thick liquids trials were both WFL in the oral and pharyngeal stages (no aspiration). During the trials of the cracker, reduced laryngeal elevation was exhibited as evidenced by laryngeal penetration during the swallow with which the pt is felt to be at risk for aspiration. During the trials of the mildly thick liquid, reduced laryngeal elevation was exhibited as evidenced by laryngeal penetration during the swallow which resulted in aspiration after the swallow. Impression: moderate dysphagia due to aspiration of thin liquids with a cough reflex (but no clearance of aspirate); also due to reduced laryngeal elevation which resulted in laryngeal penetration and trace aspiration after the swallow of mildly thick liquid; pt is at risk to aspirate solids as well. Recommendations: level 4 puree and level 3 moderately thick liquids. Message left with provider (Win); ST also spoke with dietitian and pt's RN. Due to pt's apprehension to eat it is felt that oral intake may be poor. May need to continue with PEG tube feedings as well. Dysphagia therapy recommended. Thank you for this referral
[2024-08-19] MEDS: FUROSEMIDE INJ 40 MG/4 ML VIAL 20 MG IV PUSH (11:36)
--- NOTE | 2024-08-19 11:39 | PCNFU ---
Nutrition Follow-Up Complete: Altered GI function as related to SBO/Ileus as evidenced by TPN. goal: Meet estimated nutritional needs. Patient is progressing towards goal. We will continue current goal. Pt current nutrition is Clear liquids with Moderately Thick liquids, Level 2 with tube feedings of Jevity 1.5 at 40 ml/hr. Last recorded weight is 55.1 kg, down from 57.8 kg on admit. Bowel Motility: +BM reported 08/18 Labs Reviewed:Glu 141, BUN 19, Cr 0.43, Na 134 Meds Noted:Reglan, ,Lovenox, Protonix, Zosyn. Skin:WNL Additional Notes: Patient had MBS today-Pureed, Level 4 with Moderately Thick liquids, Level 2 are being recommended. At this time clear liquids have started. PEG was pulled today and being replaced. Tube feedings will resume of Jevity 1.5 at 40 ml/hr. Spoke with family today, will send ensure clear thickened on clear liquid trays providing an additional 240 kcal and 8 gm protein. Tube feedings are providing an additional 1320 kcal/56 gm protein/669 ml water. Flush 30 ml q 4 hours. Tube feedings providing 91% kcal needs at 25 kcal/kg and 100% protein needs at 1.0-1.2 gm/kg. When diet order advances recommend Nutritional Ice Cream TID and Ensure Enlive TID for additional kcal and protein needs. Will monitor weight, labs, skin, diet orders, meds every 3 days.
[2024-08-19 12:01] LABS: Glucose Point of Care 100 mg/dl (65-105)
--- NOTE | 2024-08-19 15:08 | PC.NURSE ---
On 08/19/24, the student, Oracio Zamudio, provided care and completed [facility] documentation on this patient. I have reviewed the student's documentation and agree with the findings.
[2024-08-19 17:24] LABS: Glucose Point of Care 103 mg/dl (65-105)
[2024-08-19 23:57] LABS: Glucose Point of Care 119 mg/dl (65-105)
[2024-08-20] VITALS (11 sets, daily range): BP systolic 107–125; BP diastolic 55–66; PULSE 71–88; RESP 16–22; TEMP 36.3–37; O2SAT 93–100
[2024-08-20] MEDS: METOCLOPRAMIDE HCL INJ 10 MG/2 ML VIAL 5 MG IV PUSH ×4 (00:06→17:39)
[2024-08-20] MEDS: BISACODYL 10 MG SUPPOSITORY RECTAL (01:08)
[2024-08-20] MEDS: IPRATROPIUM 0.5 MG/ALBUTEROL SULFATE 2.5 MG AMPUL.NEB 3 ML INHALATION ×3 (01:35→19:57)
[2024-08-20] MEDS: CENTRAL LINE FLUSH 10 ML IV PUSH ×3 (05:28→22:30)
[2024-08-20 05:39] LABS: Glucose Point of Care 103 mg/dl (65-105)
--- NOTE | 2024-08-20 09:12 | PM.IMPN ---
Progress Note: A&P Assessment and Plan (1) Small bowel obstruction: Code(s): K56.609 - Unspecified intestinal obstruction, unspecified as to partial versus complete obstruction Status: Acute Assessment and Plan: Status post 08/03 Open incarcerated left femoral hernia repair without mesh 08/08 Exploratory laparotomy, gastrostomy tube placement S/p EGD showed intact gastrostomy tube and gastritis Tube feeding now at goal, s/p TPN advance diet per speech recs continue advancing diet as tolerated plan is to monitor this and re-eval on Thursday for discharge planning GI and GEN surgery following (2) Ileus, postoperative: Code(s): K91.89 - Other postprocedural complications and disorders of digestive system; K56.7 - Ileus, unspecified Status: Acute Assessment and Plan: Resolving Tube feeds at goal monitor (3) Incarcerated left inguinal hernia: Code(s): K40.30 - Unilateral inguinal hernia, with obstruction, without gangrene, not specified as recurrent Status: Acute Assessment and Plan: See above (4) EULALIO (acute kidney injury): Code(s): N17.9 - Acute kidney failure, unspecified Status: Acute Assessment and Plan: resolved (5) Sepsis: Code(s): A41.9 - Sepsis, unspecified organism Status: Acute Assessment and Plan: Completed Zosyn. UA was unremarkable 08/08: blood cultures are negative so far CXR shows pneumonia add iv vancomycin (6) Seizures: Code(s): R56.9 - Unspecified convulsions Status: Chronic Assessment and Plan: Continue IV phenytoin (7) Electrolyte abnormality: Code(s): E87.8 - Other disorders of electrolyte and fluid balance, not elsewhere classified Status: Acute Assessment and Plan: Replace potassium (8) Pulmonary edema: Code(s): J81.1 - Chronic pulmonary edema Status: Acute Assessment and Plan: Chest x-ray shows pulmonary edema. Elevated BNP Echo reviewed lasix x1 today for SOB and wheezy lungs (9) Leukocytosis: Code(s): D72.829 - Elevated white blood cell count, unspecified Status: Acute Assessment and Plan: pt on iv zosyn and iv vancomycin added for possible aspiration pneumonia watch cultures Plan Anemia Hb 8.5 Isat 24 iron replete B12 953 and Folate 5.6 DVT prophylaxis on Sq lovenox Discharge planning from Thursday, continue Tube feeding and oral diet advance this Subjective Date/time seen: 08/20/24 09:12 Interval history: Patient comfortable at bedside continue to advance diet as tolerate and continue Tube feeding Review of Systems Review of Systems: SOB and wheezy lungs today All systems reviewed & are unremarkable except as noted in HPI and below (HPI) Exam Narrative: General: Frail elderly lady with NG tube in situ and tube feeds Lungs/Chest: BL wheezy lungs Cardiac: RRR. Normal S1 S2. No murmurs Circulation: Palpable pedal pulses, feet are warm Abdomen: Hypoactive bowel sound. Mild tenderness to palpation, gastrostomy tube in place, incision under dressing Extremities: No clubbing or cyanosis, bilateral edema present : Khanna in place Neurologic: Follows commands. Moves all 4 extremities PERRL AO x3 Skin: No Rash Const: General: comfortable and no acute distress Other: The patient is recumbent in a stretcher in the PACU. , female, elderly, modestly ill-appearing. +fatigue. HENMT: Face/Nose/Sinus: Normal nares present Mouth: Yes dry mucous membranes Other: NG in place. Eyes: General: appearance normal, both eyes and all related structures Sclera: sclerae normal Pupils: Equal, round and reactive pupils present EOM: EOMs intact bilaterally Resp: Effort & Inspection: normal respiratory effort Auscultation: clear to auscultation bilaterally Cardio: Rate: regular rate Rhythm: regular rhythm Other: S1-S2 present without murmur, rub, ectopy GI: Other: Abdomen firm, distended. bowel sounds present, Drain in place, serosanguineous output. Skin: General skin exam: normal color and no rashes or lesions noted Wounds: no wounds Neuro: Cranial nerves: Yes Equal, round and reactive pupils present Speech: normal speech Motor exam (neuro): 5/5 motor strength present throughout Sensory Exam: normal sensation Other: A&O x4, mildly somnolent. Extrem: General: normal to inspection Psych: Mental Status: mental status grossly normal Affect: normal affect Other: Good insight and judgment, pleasant Objective Data Vital Signs Vital Signs: Vital Signs - 24 hr 08/19/24 12:03 08/19/24 20:00 08/19/24 20:15 Temperature 98 F Pulse Rate 87 84 89 Respiratory Rate 18 18 16 Blood Pressure 124/56 L Pulse Oximetry 99 90 Oxygen Delivery Room Air Fraction of Inspired Oxygen 21 08/19/24 20:30 08/19/24 20:35 08/19/24 20:56 Temperature 98.1 F Pulse Rate 89 84 Respiratory Rate 16 18 Blood Pressure 109/50 L Pulse Oximetry 97 90 Oxygen Delivery Room Air Fraction of Inspired Oxygen 08/20/24 01:35 08/20/24 01:45 08/20/24 05:19 Temperature 97.4 F L Pulse Rate 84 84 71 Respiratory Rate 16 16 20 Blood Pressure 125/56 L Pulse Oximetry 100 Oxygen Delivery Fraction of Inspired Oxygen 08/20/24 07:45 08/20/24 07:45 08/20/24 07:53 Temperature Pulse Rate 80 78 Respiratory Rate 18 18 Blood Pressure Pulse Oximetry 93 Oxygen Delivery Room Air Fraction of Inspired Oxygen Intake/Output Intake/Output: Intake & Output 08/17/24 08/18/24 08/19/24 08/20/24 23:59 23:59 23:59 23:59 Intake Total 1252.5 0 120 0 Output Total 1520 1600 1450 850 Balance -267.5 -1600 -1330 -850 Meds/Results Medications: Active Medications Generic Name Dose Route Start Last Admin Trade Name Freq PRN Reason Stop Dose Admin Acetaminophen 650 mg 08/18/24 13:39 Acetaminophen 325 Mg Tablet FEED TUBE Q4H PRN Mild Pain (1-3) or Fever Hydrocodone Bitart/Acetaminophen 1 tab 08/18/24 13:39 08/19/24 12:52 Hydrocodone/Acetaminophen (*Crx) 5-325 Mg Tablet FEED TUBE 1 tab Q4H PRN Administration Pain Rated 4-6 Albuterol/Ipratropium 3 ml 08/15/24 14:00 08/20/24 07:45 Ipratropium 0.5 Mg/Albuterol Sulfate 2.5 Mg Ampul.Neb 3 Ml INHALATION 3 ml Q6HRT MORGAN Administration Bisacodyl 10 mg 08/18/24 14:02 Bisacodyl 10 Mg Suppository RECTAL QAM PRN Constipation Dexamethasone Sodium Phosphate 4 mg 08/18/24 21:00 08/19/24 20:41 Dexamethasone Sod Phos Inj 4 Mg/Ml Vial IV PUSH 4 mg Q12HR MORGAN Administration Dextrose 12.5 gm 08/09/24 07:57 Dextrose 50% 25 Gm/50 Ml Syringe IV PUSH PRN PRN Hypoglycemia Protocol Enoxaparin Sodium 40 mg 08/05/24 09:00 08/19/24 08:45 Enoxaparin 40 Mg/0.4 Ml Syringe SUB-Q 40 mg DAILY MORGAN Administration Furosemide 40 mg 08/16/24 09:00 08/19/24 11:11 Furosemide 40 Mg Tablet PO Not Given DAILY MORGAN Glucagon 1 mg 08/09/24 07:57 Glucagon For Inj 1 Mg Vial IM PRN PRN Hypoglycemia Protocol Glucose 15 gm 08/09/24 07:57 Glucose Oral Gel 15 Gm Of Glucse In 37.5 Gm Tube PO PRN PRN Hypoglycemia Protocol Hydromorphone HCl 0.5 mg 08/09/24 11:55 08/17/24 19:31 Hydromorphone Hcl Inj (*Crx) 1 Mg/Ml Syr IV PUSH 0.5 mg Q2H PRN Administration Pain Rated 7-10 Dextrose 1,000 mls @ 100 mls/hr 08/09/24 07:57 Dextrose 5% 1,000 Ml IVPB PRN PRN Hypoglycemia Protocol Insulin Aspart 2 - 5 units 08/09/24 12:00 08/20/24 05:28 Insulin Aspart (*Bkc) 100 Units/Ml SUB-Q Not Given Q6HR MORGAN Protocol Lidocaine 1 patch 08/04/24 10:25 08/19/24 08:45 Lidocaine 5% Patch TRANSDERM 1 patch DAILY MORGAN Administration Lidocaine 1 patch 08/15/24 09:00 08/19/24 08:45 Lidocaine 5% Patch TRANSDERM 1 patch DAILY MORGAN Administration Metoclopramide HCl 5 mg 08/13/24 18:00 08/20/24 05:27 Metoclopramide Hcl Inj 10 Mg/2 Ml Vial IV PUSH 5 mg Q6HR MORGAN Administration Naloxone HCl 0.1 mg 08/08/24 05:45 Naloxone Hcl 0.4 Mg/Ml Vial IV PUSH Q2M PRN Opiate Reversal Ondansetron HCl 4 mg 08/03/24 15:38 08/15/24 20:54 Ondansetron Inj 4 Mg/2 Ml Vial IV PUSH 4 mg Q4H PRN Administration Nausea Pantoprazole Sodium 40 mg 08/12/24 21:00 08/19/24 20:41 Pantoprazole Sodium Iv 40 Mg Vial IV PUSH 40 mg Q12HR MORGAN Administration Phenytoin Sodium 225 mg 08/07/24 21:15 08/19/24 20:41 Phenytoin Sod 250 Mg/5 Ml Vial (*Bkc) IV PUSH 225 mg Q12HR MORGAN Administration Sodium Chloride 20 ml 08/06/24 23:57 08/07/24 06:05 Central Line Flush IV PUSH 20 ml PRN PRN Administration after blood draws Sodium Chloride 10 ml 08/06/24 23:57 Central Line Flush IV PUSH PRN PRN with TPN bag changes Sodium Chloride 10 ml 08/07/24 06:00 08/20/24 05:28 Central Line Flush IV PUSH 10 ml Q8HR MORGAN Administration Radiology Results: ITS Impressions Abdomen/Pelvis CT 08/08/24 06:07 Impression: Findings highly suspicious for extensive bowel ischemia, extensive small bowel and gastric pneumatosis and extensive portal venous gas. Extensive dilatation of small bowel loops and stomach with decompression of large bowel. Transition point not well delineated, but findings are highly suspicious for distal small bowel obstruction. NG tube tip at the GE junction. Further advancement of NG tube into the stomach is required for adequate placement. Small bilateral pleural effusions. Head CT 08/10/24 11:18 IMPRESSION: 1. Normal aging brain. Upper GI Series 08/10/24 13:27 IMPRESSION: Findings within the distal esophagus/proximal stomach for which prior fundoplication is suspected. Esophageal dysmotility and significant esophageal reflux is also detected. Chest X-Ray 08/15/24 10:10 IMPRESSION: Minimal opacification the right lung base suggestive of atelectasis versus pneumonia. Modified Barium Swallow 08/19/24 10:36 IMPRESSION: Oropharyngeal dysphagia with laryngeal penetration and aspiration. Please correlate with speech pathologist findings and specific feeding recommendations. Abdomen X-Ray 08/19/24 11:23 Impression: Percutaneous gastrostomy tube in satisfactory position. Labs Labs: Laboratory Results - last 24 hr 08/19/24 08/19/24 08/19/24 11:57 17:20 23:46 POC Capillary Glucose 100 103 119 H 08/20/24 05:27 POC Capillary Glucose 103 Quality VTE Prophylaxis VTE prophylaxis: mechanical ordered
--- NOTE | 2024-08-20 09:40 | PM.PNGS ---
Progress Note: A&P Assessment and Plan (1) Incarcerated left inguinal hernia: Code(s): K40.30 - Unilateral inguinal hernia, with obstruction, without gangrene, not specified as recurrent Status: Acute Assessment and Plan: s/p repair, cont TF @goal, cont diet as recommended by ST, encourage po, OOB/IS, PT/OT (2) Ileus, postoperative: Code(s): K91.89 - Other postprocedural complications and disorders of digestive system; K56.7 - Ileus, unspecified Status: Acute Assessment and Plan: resolving, see above Subjective Subjective Date/Time Seen: 08/20/24 09:40 Interval history: feels ok, pretty weak, brenda TF, some po intake Review of Systems Review of Systems: All systems reviewed & are unremarkable except as noted in HPI and below Exam Const: General: cooperative, comfortable, ill appearing and lethargic Resp: Auscultation: diminished lung sounds Cardio: Rate: regular rate Rhythm: regular rhythm GI: Inspection: normal to inspection, distended and incision GI Palp: Yes abdominal tenderness, Yes Soft to palpation, Yes Tenderness to palpation present (GI), No Guarding due to palpation present (GI) and No Rigid due to palpation Other: G tube - C/D/I Objective Data Vital Signs Vital Signs: Vital Signs - 24 hr 08/19/24 12:03 08/19/24 20:00 08/19/24 20:15 Temperature 36.6 C Pulse Rate 87 84 89 Respiratory Rate 18 18 16 Blood Pressure 124/56 L Pulse Oximetry 99 90 Oxygen Delivery Room Air Fraction of Inspired Oxygen 21 08/19/24 20:30 08/19/24 20:35 08/19/24 20:56 Temperature 36.7 C Pulse Rate 89 84 Respiratory Rate 16 18 Blood Pressure 109/50 L Pulse Oximetry 97 90 Oxygen Delivery Room Air Fraction of Inspired Oxygen 08/20/24 01:35 08/20/24 01:45 08/20/24 05:19 Temperature 36.3 C L Pulse Rate 84 84 71 Respiratory Rate 16 16 20 Blood Pressure 125/56 L Pulse Oximetry 100 Oxygen Delivery Fraction of Inspired Oxygen 08/20/24 07:45 08/20/24 07:45 08/20/24 07:53 Temperature Pulse Rate 80 78 Respiratory Rate 18 18 Blood Pressure Pulse Oximetry 93 Oxygen Delivery Room Air Fraction of Inspired Oxygen Intake/Output Intake/Output: Intake & Output 08/17/24 08/18/24 08/19/24 08/20/24 23:59 23:59 23:59 23:59 Intake Total 1252.5 0 120 0 Output Total 1520 1600 1450 850 Balance -267.5 -1600 -5960 -850 Meds/Results Medications: Active Medications Generic Name Dose Route Start Last Admin Trade Name Freq PRN Reason Stop Dose Admin Acetaminophen 650 mg 08/18/24 13:39 Acetaminophen 325 Mg Tablet FEED TUBE Q4H PRN Mild Pain (1-3) or Fever Hydrocodone Bitart/Acetaminophen 1 tab 08/18/24 13:39 08/19/24 12:52 Hydrocodone/Acetaminophen (*Crx) 5-325 Mg Tablet FEED TUBE 1 tab Q4H PRN Administration Pain Rated 4-6 Albuterol/Ipratropium 3 ml 08/15/24 14:00 08/20/24 07:45 Ipratropium 0.5 Mg/Albuterol Sulfate 2.5 Mg Ampul.Neb 3 Ml INHALATION 3 ml Q6HRT MORGAN Administration Bisacodyl 10 mg 08/18/24 14:02 Bisacodyl 10 Mg Suppository RECTAL QAM PRN Constipation Dexamethasone Sodium Phosphate 4 mg 08/18/24 21:00 08/19/24 20:41 Dexamethasone Sod Phos Inj 4 Mg/Ml Vial IV PUSH 4 mg Q12HR MORGAN Administration Dextrose 12.5 gm 08/09/24 07:57 Dextrose 50% 25 Gm/50 Ml Syringe IV PUSH PRN PRN Hypoglycemia Protocol Enoxaparin Sodium 40 mg 08/05/24 09:00 08/19/24 08:45 Enoxaparin 40 Mg/0.4 Ml Syringe SUB-Q 40 mg DAILY MORGAN Administration Furosemide 40 mg 08/16/24 09:00 08/19/24 11:11 Furosemide 40 Mg Tablet PO Not Given DAILY MORGAN Glucagon 1 mg 08/09/24 07:57 Glucagon For Inj 1 Mg Vial IM PRN PRN Hypoglycemia Protocol Glucose 15 gm 08/09/24 07:57 Glucose Oral Gel 15 Gm Of Glucse In 37.5 Gm Tube PO PRN PRN Hypoglycemia Protocol Hydromorphone HCl 0.5 mg 08/09/24 11:55 08/17/24 19:31 Hydromorphone Hcl Inj (*Crx) 1 Mg/Ml Syr IV PUSH 0.5 mg Q2H PRN Administration Pain Rated 7-10 Dextrose 1,000 mls @ 100 mls/hr 08/09/24 07:57 Dextrose 5% 1,000 Ml IVPB PRN PRN Hypoglycemia Protocol Insulin Aspart 2 - 5 units 08/09/24 12:00 08/20/24 05:28 Insulin Aspart (*Bkc) 100 Units/Ml SUB-Q Not Given Q6HR MORGAN Protocol Lidocaine 1 patch 08/04/24 10:25 08/19/24 08:45 Lidocaine 5% Patch TRANSDERM 1 patch DAILY MORGAN Administration Lidocaine 1 patch 08/15/24 09:00 08/19/24 08:45 Lidocaine 5% Patch TRANSDERM 1 patch DAILY MORGAN Administration Metoclopramide HCl 5 mg 08/13/24 18:00 08/20/24 05:27 Metoclopramide Hcl Inj 10 Mg/2 Ml Vial IV PUSH 5 mg Q6HR MORGAN Administration Naloxone HCl 0.1 mg 08/08/24 05:45 Naloxone Hcl 0.4 Mg/Ml Vial IV PUSH Q2M PRN Opiate Reversal Ondansetron HCl 4 mg 08/03/24 15:38 08/15/24 20:54 Ondansetron Inj 4 Mg/2 Ml Vial IV PUSH 4 mg Q4H PRN Administration Nausea Pantoprazole Sodium 40 mg 08/12/24 21:00 08/19/24 20:41 Pantoprazole Sodium Iv 40 Mg Vial IV PUSH 40 mg Q12HR MORGAN Administration Phenytoin Sodium 225 mg 08/07/24 21:15 08/19/24 20:41 Phenytoin Sod 250 Mg/5 Ml Vial (*Bkc) IV PUSH 225 mg Q12HR MORGAN Administration Sodium Chloride 20 ml 08/06/24 23:57 08/07/24 06:05 Central Line Flush IV PUSH 20 ml PRN PRN Administration after blood draws Sodium Chloride 10 ml 08/06/24 23:57 Central Line Flush IV PUSH PRN PRN with TPN bag changes Sodium Chloride 10 ml 08/07/24 06:00 08/20/24 05:28 Central Line Flush IV PUSH 10 ml Q8HR MORGAN Administration Radiology Results: ITS Impressions Abdomen/Pelvis CT 08/08/24 06:07 Impression: Findings highly suspicious for extensive bowel ischemia, extensive small bowel and gastric pneumatosis and extensive portal venous gas. Extensive dilatation of small bowel loops and stomach with decompression of large bowel. Transition point not well delineated, but findings are highly suspicious for distal small bowel obstruction. NG tube tip at the GE junction. Further advancement of NG tube into the stomach is required for adequate placement. Small bilateral pleural effusions. Head CT 08/10/24 11:18 IMPRESSION: 1. Normal aging brain. Upper GI Series 08/10/24 13:27 IMPRESSION: Findings within the distal esophagus/proximal stomach for which prior fundoplication is suspected. Esophageal dysmotility and significant esophageal reflux is also detected. Chest X-Ray 08/15/24 10:10 IMPRESSION: Minimal opacification the right lung base suggestive of atelectasis versus pneumonia. Modified Barium Swallow 08/19/24 10:36 IMPRESSION: Oropharyngeal dysphagia with laryngeal penetration and aspiration. Please correlate with speech pathologist findings and specific feeding recommendations. Abdomen X-Ray 08/19/24 11:23 Impression: Percutaneous gastrostomy tube in satisfactory position. Labs Labs: Laboratory Results - last 24 hr 08/19/24 08/19/24 08/19/24 11:57 17:20 23:46 POC Capillary Glucose 100 103 119 H 08/20/24 05:27 POC Capillary Glucose 103
[2024-08-20] MEDS: FUROSEMIDE 40 MG TABLET PO (09:53)
[2024-08-20] MEDS: ENOXAPARIN 40 MG/0.4 ML SYRINGE SUB-Q (09:54)
[2024-08-20] MEDS: LIDOCAINE 5% PATCH 1 PATCH TRANSDERM ×3 (09:55→21:23)
[2024-08-20] MEDS: dexAMETHasone SOD PHOS INJ 4 MG/ML VIAL IV PUSH ×2 (09:56→21:09)
[2024-08-20] MEDS: PHENYTOIN SOD 250 MG/5 ML 225 MG IV PUSH (09:57)
[2024-08-20] MEDS: PANTOPRAZOLE SODIUM IV 40 MG VIAL IV PUSH ×2 (09:57→21:09)
[2024-08-20 10:33] LABS: Hemoglobin 8.9 g/dL (12.0-15.0); Mean Corpuscular Hemoglobin 33.6 pg (26-34); Mean Corpuscular Volume 101.9 fl (80-100); Mean Platelet Volume 8.7 fl (7.4-10.4); Platelet Count Result 399 k/mm3 (150-375); Red Blood Count 2.65 M/mm3 (4.2-5.4); Red Cell Distribution Width 14.7 % (11.5-14.5)
[2024-08-20 10:45] LABS: Alanine Aminotransferase 35 U/L (6-35); Albumin Level 3.1 g/dL (3.5-5.1); Alkaline Phosphatase 88 U/L (38-126); Anion Gap 8 mmol/L (4-12); Aspartate Amino Transferase 36 U/L (14-36); Bilirubin,Total 0.3 mg/dL (0.2-1.3); Blood Urea Nitrogen 20 mg/dL (7-17); Calcium 8.5 mg/dL (8.4-10.2); Carbon Dioxide 30 mmol/L (22-30); Chloride 99 mmol/L (98-107); Estimated Glomerular Filt Rate > 60; Glucose 127 mg/dL (65-110); Potassium 3.9 mmol/L (3.4-5.0); Sodium 137 mmol/L (137-145)
[2024-08-20 12:14] LABS: Glucose Point of Care 133 mg/dl (65-105)
[2024-08-20 17:38] LABS: Glucose Point of Care 95 mg/dl (65-105)
[2024-08-20] MEDS: ACETAMINOPHEN 325 MG TABLET 650 MG FEED TUBE (17:45)
[2024-08-20] MEDS: QUEtiapine FUMARATE 25 MG TABLET PO (21:10)
[2024-08-20] MEDS: HYDROmorphone HCL INJ (*CRX) 1 MG/ML SYR 0.5 MG IV PUSH (22:45)
[2024-08-20] MEDS: SIMETHICONE 80 MG TAB.CHEW PO (23:25)
[2024-08-20 23:49] LABS: Phenytoin Dilantin 32 ug/mL (10-20)
--- NOTE | 2024-08-20 23:55 | ECG_ITS ---
Test Date: 2024-08-21 00:38:53 Measurements Intervals [place] Rate: 85 P: 18 NE: 171 QRS: -30 QRSD: 77 T: 43 QT: 350 QTc: 417 Interpretive Statements SINUS RHYTHM BORDERLINE LEFT AXIS DEVIATION [QRS AXIS < -20] Compared to ECG 08/03/2024 13:50:49 No significant changes Electronically Signed On 08-21-2024 13:30:54 CDT by Gabe Feldman M.D.
--- NOTE | 2024-08-20 23:58 | PM.EVENT ---
Event Note Event Note Event Note: Patient is concerned that she has been getting phenytoin 225 mg IV q.12 hours since admission as she only takes phenytoin 150 mg at bedtime at home. Stat phenytoin level was 32 but she is not showing any signs of toxicity. IV phenytoin has been discontinued and we will continue to monitor levels daily and resume her usual dose when appropriate.
[2024-08-21] VITALS (11 sets, daily range): BP systolic 102–109; BP diastolic 44–61; PULSE 81–97; RESP 16–20; TEMP 36.3–36.7; O2SAT 93–98
--- NOTE | 2024-08-21 00:18 | PC.NURSE ---
2130: PT STATES AT TIME OF MEDICATION REVIEW AND ADMININSTRATION THAT IVP DILANTIN DOSE (225MG IVP BID) IS DIFFERENT FROM HER HOME PO DOSE (100MG PO AM/ 150MG PO PM); VERIFIED WITH PT THAT HER STATED DOSING CORRESPONDS W/ EXTERNAL MEDICATION HX NOTED IN EMR AND LAST RX FILLED 07/29/24. IVP DOSE HELD AND Jose WANG CONTACTED RE: DOSE CHANGE; DIRECTION GIVEN TO CHECK W/ PHARMACY RE: EQUIVALENT IVP DOSE. 1027:SPOKE W/ ALBERT IN PHARMACY; SUGGESTS OBTAINING DILANTIN LEVEL FIRST; NONE DONE THIS ADMISSION. STATES IVP AND PO DOSES ARE GENERALLY SAME. 2321: DILANTIN LEVEL OBTAINED; CRITICAL VALUE AT 31.9. DILANTIN AT CURRENT DOSE ON HOLD; Jose WANG TO PUT IN ORDERS FOR REPEAT LABS; EKG. 2310:PT HAS ALSO HAD C/O ABD DISTENTION; INCREASED PAIN. ACTIVE BOWEL SOUNDS AUSCULTATED AND FLATUS PRESENT. RATES PAIN 7/10. PT MEDICATED AND PLACED IN LEFT LATERAL DECUB. POSITION FROM SEATING IN A CHAIR. SIMETHICONE 80MG X1 GIVEN. KUB DONE.
[2024-08-21 01:03] LABS: Glucose Point of Care 124 mg/dl (65-105)
[2024-08-21] MEDS: METOCLOPRAMIDE HCL INJ 10 MG/2 ML VIAL 5 MG IV PUSH ×5 (01:15→23:25)
[2024-08-21] MEDS: HYDROcodone/acetaminophen (*CRX) 5-325 MG TABLET 1 TAB FEED TUBE ×2 (01:16→16:56)
--- NOTE | 2024-08-21 03:52 | PC.NURSE ---
STAFF CALLED TO ROOM FOR PT ASSIST TO BSC TO VOID; PT NOTED TO HAVE SOME PASSAGE OF JEVITY FROM AROUND FEEDING TUBE SATURATUNG PRESENT DRAIN SPONGE; PT STATES PAIN HAS IMPROVED AND WAS SLEEPING PRIOR TO NEEDING TO VOID;TUBE REMAINS SUTURED IN PLACE. JEVITY FEEDING HELD AND DRAIN SPONGES REPLACED; REPEAT KUB REPORT SHOWS GAS IN BOWEL, DOES NOT ADDRESS LOCATION OF FEEDING TUBE. Jose WANG MADE AWARE; SHE WILL REVIEW IMAGES FROM THIS SHIFT AND LAST NOC FOR COMPARISON AND GIVE FURTHER ORDERS. PT IN NO DISTRESS; NO CHANGE IN PT'S ABDOMEN APPEARANCE: NO INCREASED DISTENTION; PASSING FLATUS.
[2024-08-21] MEDS: CENTRAL LINE FLUSH 10 ML IV PUSH ×3 (05:59→20:30)
[2024-08-21 06:46] LABS: Glucose Point of Care 105 mg/dl (65-105)
[2024-08-21 07:24] LABS: Phenytoin Dilantin 29 ug/mL (10-20)
--- NOTE | 2024-08-21 07:58 | PC.NURSE ---
SPOKE W/ DR. FIELDS RE: HOLD OF JEVITY AND LEAK OF FEED CONTENTS AROUND PERC SITE; STATES TO SEND PT FOR REPEAT WATER SOLUABLE G TUBE STUDY FOR RECHECK OF PLACEMENT BEFORE RESUMPTION TO JEVITY TUBE FEEDS. HE WILL BE IN TO EVAL PT TODAY. ORDER OBTAINED.
[2024-08-21] MEDS: IPRATROPIUM 0.5 MG/ALBUTEROL SULFATE 2.5 MG AMPUL.NEB 3 ML INHALATION ×3 (08:01→20:01)
[2024-08-21] MEDS: dexAMETHasone SOD PHOS INJ 4 MG/ML VIAL IV PUSH ×2 (09:28→20:29)
[2024-08-21] MEDS: PANTOPRAZOLE SODIUM IV 40 MG VIAL IV PUSH ×2 (09:29→20:29)
[2024-08-21] MEDS: ENOXAPARIN 40 MG/0.4 ML SYRINGE SUB-Q (09:30)
[2024-08-21] MEDS: LIDOCAINE 5% PATCH 1 PATCH TRANSDERM ×2 (09:31→20:27)
[2024-08-21] MEDS: FUROSEMIDE 40 MG TABLET PO (09:31)
--- NOTE | 2024-08-21 11:50 | P.PNIM_ITS ---
Progress Note: A&P Assessment and Plan (1) Small bowel obstruction: Code(s): K56.609 - Unspecified intestinal obstruction, unspecified as to partial versus complete obstruction Status: Acute Assessment and Plan: Status post 08/03 Open incarcerated left femoral hernia repair without mesh 08/08 Exploratory laparotomy, gastrostomy tube placement S/p EGD showed intact gastrostomy tube and gastritis Tube feeding now at goal, s/p TPN advance diet per speech recs continue advancing diet as tolerated plan is to monitor this and re-eval on Thursday for discharge planning GI and GEN surgery following (2) Ileus, postoperative: Code(s): K91.89 - Other postprocedural complications and disorders of digestive system; K56.7 - Ileus, unspecified Status: Acute Assessment and Plan: Resolving Tube feeds at goal monitor (3) Incarcerated left inguinal hernia: Code(s): K40.30 - Unilateral inguinal hernia, with obstruction, without gangrene, not specified as recurrent Status: Acute Assessment and Plan: See above (4) EULALIO (acute kidney injury): Code(s): N17.9 - Acute kidney failure, unspecified Status: Acute Assessment and Plan: resolved (5) Sepsis: Code(s): A41.9 - Sepsis, unspecified organism Status: Acute Assessment and Plan: Completed Zosyn. UA was unremarkable 08/08: blood cultures are negative so far CXR shows pneumonia add iv vancomycin (6) Seizures: Code(s): R56.9 - Unspecified convulsions Status: Chronic Assessment and Plan: Dilantin level is 29, will hold phenytoin and repeat in am. (7) Electrolyte abnormality: Code(s): E87.8 - Other disorders of electrolyte and fluid balance, not elsewhere classified Status: Acute Assessment and Plan: Replace potassium (8) Pulmonary edema: Code(s): J81.1 - Chronic pulmonary edema Status: Acute Assessment and Plan: Chest x-ray shows pulmonary edema. Elevated BNP Echo reviewed lasix x1 today for SOB and wheezy lungs (9) Leukocytosis: Code(s): D72.829 - Elevated white blood cell count, unspecified Status: Acute Assessment and Plan: pt on iv zosyn and iv vancomycin added for possible aspiration pneumonia watch cultures Plan Anemia Hb 8.5 Isat 24 iron replete B12 953 and Folate 5.6 DVT prophylaxis on Sq lovenox Discharge planning from Thursday, continue Tube feeding and oral diet advance this Subjective Date/time seen: 08/21/24 11:50 Interval history: Patient was seen during the morning rounds today. Patient is feeling better. No shortness of breath or chest pain. No abdominal pain. Patient comfortable at bedside Review of Systems Review of Systems: SOB and wheezy lungs today All systems reviewed & are unremarkable except as noted in HPI and below (HPI) Exam Narrative: General: Frail elderly lady with NG tube in situ and tube feeds Lungs/Chest: BL wheezy lungs Cardiac: RRR. Normal S1 S2. No murmurs Circulation: Palpable pedal pulses, feet are warm Abdomen: Hypoactive bowel sound. Mild tenderness to palpation, gastrostomy tube in place, incision under dressing Extremities: No clubbing or cyanosis, bilateral edema present : Khanna in place Neurologic: Follows commands. Moves all 4 extremities PERRL AO x3 Skin: No Rash Const: General: comfortable and no acute distress Other: The patient is recumbent in a stretcher in the PACU. , female, elderly, modestly ill-appearing. +fatigue. HENMT: Face/Nose/Sinus: Normal nares present Mouth: Yes dry mucous membranes Other: NG in place. Eyes: General: appearance normal, both eyes and all related structures Sclera: sclerae normal Pupils: Equal, round and reactive pupils present EOM: EOMs intact bilaterally Resp: Effort & Inspection: normal respiratory effort Auscultation: clear to auscultation bilaterally Cardio: Rate: regular rate Rhythm: regular rhythm Other: S1-S2 present without murmur, rub, ectopy GI: Other: Abdomen firm, distended. bowel sounds present, Drain in place, serosanguineous output. Skin: General skin exam: normal color and no rashes or lesions noted Wounds: no wounds Neuro: Cranial nerves: Yes Equal, round and reactive pupils present Speech: normal speech Motor exam (neuro): 5/5 motor strength present throughout Sensory Exam: normal sensation Other: A&O x4, mildly somnolent. Extrem: General: normal to inspection Psych: Mental Status: mental status grossly normal Affect: normal affect Other: Good insight and judgment, pleasant Objective Data Vital Signs Vital Signs: Vital Signs - 24 hr 08/20/24 13:27 08/20/24 19:59 08/20/24 20:00 Temperature 37.0 C Pulse Rate 84 83 Respiratory Rate 18 22 H Blood Pressure 107/55 L Pulse Oximetry 94 95 Oxygen Delivery Room Air Fraction of Inspired Oxygen 08/20/24 20:10 08/20/24 20:46 08/20/24 21:26 Temperature 36.6 C 36.5 C Pulse Rate 80 88 88 Respiratory Rate 22 H 16 16 Blood Pressure 124/55 L 125/66 Pulse Oximetry 99 99 Oxygen Delivery Fraction of Inspired Oxygen 08/21/24 05:54 08/21/24 08:00 08/21/24 08:01 Temperature 36.7 C 36.4 C Pulse Rate 93 97 Respiratory Rate 16 18 Blood Pressure 103/50 L 102/59 L Pulse Oximetry 96 97 93 Oxygen Delivery Room Air Fraction of Inspired Oxygen 21 08/21/24 08:01 08/21/24 08:09 08/21/24 09:28 Temperature Pulse Rate 87 88 Respiratory Rate 20 20 Blood Pressure Pulse Oximetry Oxygen Delivery Room Air Fraction of Inspired Oxygen Intake/Output Intake/Output: Intake & Output 08/18/24 08/19/24 08/20/24 08/21/24 23:59 23:59 23:59 23:59 Intake Total 0 120 971 400 Output Total 1600 1450 1450 Balance -1600 -7610 -479 400 Meds/Results Medications: Active Medications Generic Name Dose Route Start Last Admin Trade Name Freq PRN Reason Stop Dose Admin Acetaminophen 650 mg 08/18/24 13:39 08/20/24 17:45 Acetaminophen 325 Mg Tablet FEED TUBE 650 mg Q4H PRN Administration Mild Pain (1-3) or Fever Hydrocodone Bitart/Acetaminophen 1 tab 08/18/24 13:39 08/21/24 01:16 Hydrocodone/Acetaminophen (*Crx) 5-325 Mg Tablet FEED TUBE 1 tab Q4H PRN Administration Pain Rated 4-6 Albuterol/Ipratropium 3 ml 08/15/24 14:00 08/21/24 08:01 Ipratropium 0.5 Mg/Albuterol Sulfate 2.5 Mg Ampul.Neb 3 Ml INHALATION 3 ml Q6HRT MORGAN Administration Bisacodyl 10 mg 08/18/24 14:02 Bisacodyl 10 Mg Suppository RECTAL QAM PRN Constipation Dexamethasone Sodium Phosphate 4 mg 08/18/24 21:00 08/21/24 09:28 Dexamethasone Sod Phos Inj 4 Mg/Ml Vial IV PUSH 4 mg Q12HR MORGAN Administration Dextrose 12.5 gm 08/09/24 07:57 Dextrose 50% 25 Gm/50 Ml Syringe IV PUSH PRN PRN Hypoglycemia Protocol Enoxaparin Sodium 40 mg 08/05/24 09:00 08/21/24 09:30 Enoxaparin 40 Mg/0.4 Ml Syringe SUB-Q 40 mg DAILY MORGAN Administration Furosemide 40 mg 08/16/24 09:00 08/21/24 09:31 Furosemide 40 Mg Tablet PO 40 mg DAILY MORGAN Administration Glucagon 1 mg 08/09/24 07:57 Glucagon For Inj 1 Mg Vial IM PRN PRN Hypoglycemia Protocol Glucose 15 gm 08/09/24 07:57 Glucose Oral Gel 15 Gm Of Glucse In 37.5 Gm Tube PO PRN PRN Hypoglycemia Protocol Hydromorphone HCl 0.5 mg 08/09/24 11:55 08/20/24 22:45 Hydromorphone Hcl Inj (*Crx) 1 Mg/Ml Syr IV PUSH 0.5 mg Q2H PRN Administration Pain Rated 7-10 Dextrose 1,000 mls @ 100 mls/hr 08/09/24 07:57 Dextrose 5% 1,000 Ml IVPB PRN PRN Hypoglycemia Protocol Insulin Aspart 2 - 5 units 08/09/24 12:00 08/21/24 05:58 Insulin Aspart (*Bkc) 100 Units/Ml SUB-Q Not Given Q6HR MORGAN Protocol Lidocaine 1 patch 08/04/24 10:25 08/20/24 21:23 Lidocaine 5% Patch TRANSDERM 1 patch DAILY MORGAN Administration Lidocaine 1 patch 08/15/24 09:00 08/21/24 09:31 Lidocaine 5% Patch TRANSDERM 1 patch DAILY MORGAN Administration Metoclopramide HCl 5 mg 08/13/24 18:00 08/21/24 05:58 Metoclopramide Hcl Inj 10 Mg/2 Ml Vial IV PUSH 5 mg Q6HR MORGAN Administration Naloxone HCl 0.1 mg 08/08/24 05:45 Naloxone Hcl 0.4 Mg/Ml Vial IV PUSH Q2M PRN Opiate Reversal Ondansetron HCl 4 mg 08/03/24 15:38 08/15/24 20:54 Ondansetron Inj 4 Mg/2 Ml Vial IV PUSH 4 mg Q4H PRN Administration Nausea Pantoprazole Sodium 40 mg 08/12/24 21:00 08/21/24 09:29 Pantoprazole Sodium Iv 40 Mg Vial IV PUSH 40 mg Q12HR MORGAN Administration Quetiapine Fumarate 25 mg 08/20/24 21:00 08/20/24 21:10 Quetiapine Fumarate 25 Mg Tablet PO 25 mg HS MORGAN Administration Sodium Chloride 20 ml 08/06/24 23:57 08/07/24 06:05 Central Line Flush IV PUSH 20 ml PRN PRN Administration after blood draws Sodium Chloride 10 ml 08/06/24 23:57 Central Line Flush IV PUSH PRN PRN with TPN bag changes Sodium Chloride 10 ml 08/07/24 06:00 08/21/24 05:59 Central Line Flush IV PUSH 10 ml Q8HR MORGAN Administration Radiology Results: ITS Impressions Abdomen/Pelvis CT 08/08/24 06:07 Impression: Findings highly suspicious for extensive bowel ischemia, extensive small bowel and gastric pneumatosis and extensive portal venous gas. Extensive dilatation of small bowel loops and stomach with decompression of large bowel. Transition point not well delineated, but findings are highly suspicious for distal small bowel obstruction. NG tube tip at the GE junction. Further advancement of NG tube into the stomach is required for adequate placement. Small bilateral pleural effusions. Head CT 08/10/24 11:18 IMPRESSION: 1. Normal aging brain. Upper GI Series 08/10/24 13:27 IMPRESSION: Findings within the distal esophagus/proximal stomach for which prior fundo plication is suspected. Esophageal dysmotility and significant esophageal reflux is also detected. Chest X-Ray 08/15/24 10:10 IMPRESSION: Minimal opacification the right lung base suggestive of atelectasis versus pneumonia. Modified Barium Swallow 08/19/24 10:36 IMPRESSION: Oropharyngeal dysphagia with laryngeal penetration and aspiration. Please correlate with speech pathologist findings and specific feeding recommendations. Abdomen X-Ray 08/21/24 09:15 IMPRESSION: Gastrostomy tube in good position and ready for immediate use. Given the nursing notes document leakage around the tube, perhaps conversion to a gastrojejunostomy tube would be more appropriate in this patient, especially in her history of laryngeal penetration and aspiration. Consult interventional radiology, if this needs to be requested. Thank you for the opportunity to assist in the care of your patient. For questions or concerns regarding this interpretation, please reach out to me directly at [phone]. Labs Labs: Laboratory Results - last 24 hr 08/20/24 08/20/24 08/20/24 12:11 17:27 23:21 POC Capillary Glucose 133 H 95 Phenytoin 32 H* 08/21/24 08/21/24 08/21/24 00:51 05:57 06:58 POC Capillary Glucose 124 H 105 Phenytoin 29 H* Quality VTE Prophylaxis VTE prophylaxis: mechanical ordered
--- NOTE | 2024-08-21 12:08 | P.PNGS_ITS ---
Progress Note: A&P Assessment and Plan (1) Incarcerated left inguinal hernia: Code(s): K40.30 - Unilateral inguinal hernia, with obstruction, without gangrene, not specified as recurrent Status: Acute Assessment and Plan: doing well c clears, advance to full liquids, encourage po and hopefully can stop TFs, hinds out, encourage OOB/IS, PT/OT (2) Ileus, postoperative: Code(s): K91.89 - Other postprocedural complications and disorders of digestive system; K56.7 - Ileus, unspecified Status: Acute Assessment and Plan: resolved Subjective Subjective Date/Time Seen: 08/21/24 12:09 Interval history: no acute issues, tolerating clears, some leakage noted around G-tube Review of Systems Review of Systems: All systems reviewed & are unremarkable except as noted in HPI and below Exam 2 Const: General: cooperative, comfortable, no acute distress, ill appearing and tired appearing Resp: Auscultation: clear to auscultation bilaterally Cardio: Rate: regular rate Rhythm: regular rhythm GI: Inspection: normal to inspection, non-distended and incision GI Palp: Yes abdominal tenderness, Yes Soft to palpation, No Guarding due to palpation present (GI) and No Rigid due to palpation Other: G tube - C/D/I Objective Data Vital Signs Vital Signs: Vital Signs - 24 hr 08/20/24 13:27 08/20/24 19:59 08/20/24 20:00 Temperature 37.0 C Pulse Rate 84 83 Respiratory Rate 18 22 H Blood Pressure 107/55 L Pulse Oximetry 94 95 Oxygen Delivery Room Air Fraction of Inspired Oxygen 08/20/24 20:10 08/20/24 20:46 08/20/24 21:26 Temperature 36.6 C 36.5 C Pulse Rate 80 88 88 Respiratory Rate 22 H 16 16 Blood Pressure 124/55 L 125/66 Pulse Oximetry 99 99 Oxygen Delivery Fraction of Inspired Oxygen 08/21/24 05:54 08/21/24 08:00 08/21/24 08:01 Temperature 36.7 C 36.4 C Pulse Rate 93 97 Respiratory Rate 16 18 Blood Pressure 103/50 L 102/59 L Pulse Oximetry 96 97 93 Oxygen Delivery Room Air Fraction of Inspired Oxygen 21 08/21/24 08:01 08/21/24 08:09 08/21/24 09:28 Temperature Pulse Rate 87 88 Respiratory Rate 20 20 Blood Pressure Pulse Oximetry Oxygen Delivery Room Air Fraction of Inspired Oxygen Intake/Output Intake/Output: Intake & Output 08/18/24 08/19/24 08/20/24 08/21/24 23:59 23:59 23:59 23:59 Intake Total 0 120 971 400 Output Total 1600 1450 1450 Balance -7873 -3055 -479 400 Meds/Results Medications: Active Medications Generic Name Dose Route Start Last Admin Trade Name Freq PRN Reason Stop Dose Admin Acetaminophen 650 mg 08/18/24 13:39 08/20/24 17:45 Acetaminophen 325 Mg Tablet FEED TUBE 650 mg Q4H PRN Administration Mild Pain (1-3) or Fever Hydrocodone Bitart/Acetaminophen 1 tab 08/18/24 13:39 08/21/24 01:16 Hydrocodone/Acetaminophen (*Crx) 5-325 Mg Tablet FEED TUBE 1 tab Q4H PRN Administration Pain Rated 4-6 Albuterol/Ipratropium 3 ml 08/15/24 14:00 08/21/24 08:01 Ipratropium 0.5 Mg/Albuterol Sulfate 2.5 Mg Ampul.Neb 3 Ml INHALATION 3 ml Q6HRT MORGAN Administration Bisacodyl 10 mg 08/18/24 14:02 Bisacodyl 10 Mg Suppository RECTAL QAM PRN Constipation Dexamethasone Sodium Phosphate 4 mg 08/18/24 21:00 08/21/24 09:28 Dexamethasone Sod Phos Inj 4 Mg/Ml Vial IV PUSH 4 mg Q12HR MORGAN Administration Dextrose 12.5 gm 08/09/24 07:57 Dextrose 50% 25 Gm/50 Ml Syringe IV PUSH PRN PRN Hypoglycemia Protocol Enoxaparin Sodium 40 mg 08/05/24 09:00 08/21/24 09:30 Enoxaparin 40 Mg/0.4 Ml Syringe SUB-Q 40 mg DAILY MORGAN Administration Furosemide 40 mg 08/16/24 09:00 08/21/24 09:31 Furosemide 40 Mg Tablet PO 40 mg DAILY MORGAN Administration Glucagon 1 mg 08/09/24 07:57 Glucagon For Inj 1 Mg Vial IM PRN PRN Hypoglycemia Protocol Glucose 15 gm 08/09/24 07:57 Glucose Oral Gel 15 Gm Of Glucse In 37.5 Gm Tube PO PRN PRN Hypoglycemia Protocol Hydromorphone HCl 0.5 mg 08/09/24 11:55 08/20/24 22:45 Hydromorphone Hcl Inj (*Crx) 1 Mg/Ml Syr IV PUSH 0.5 mg Q2H PRN Administration Pain Rated 7-10 Dextrose 1,000 mls @ 100 mls/hr 08/09/24 07:57 Dextrose 5% 1,000 Ml IVPB PRN PRN Hypoglycemia Protocol Insulin Aspart 2 - 5 units 08/09/24 12:00 08/21/24 05:58 Insulin Aspart (*Bkc) 100 Units/Ml SUB-Q Not Given Q6HR MORGAN Protocol Lidocaine 1 patch 08/04/24 10:25 08/20/24 21:23 Lidocaine 5% Patch TRANSDERM 1 patch DAILY MORGAN Administration Lidocaine 1 patch 08/15/24 09:00 08/21/24 09:31 Lidocaine 5% Patch TRANSDERM 1 patch DAILY MORGAN Administration Metoclopramide HCl 5 mg 08/13/24 18:00 08/21/24 05:58 Metoclopramide Hcl Inj 10 Mg/2 Ml Vial IV PUSH 5 mg Q6HR MORGAN Administration Naloxone HCl 0.1 mg 08/08/24 05:45 Naloxone Hcl 0.4 Mg/Ml Vial IV PUSH Q2M PRN Opiate Reversal Ondansetron HCl 4 mg 08/03/24 15:38 08/15/24 20:54 Ondansetron Inj 4 Mg/2 Ml Vial IV PUSH 4 mg Q4H PRN Administration Nausea Pantoprazole Sodium 40 mg 08/12/24 21:00 08/21/24 09:29 Pantoprazole Sodium Iv 40 Mg Vial IV PUSH 40 mg Q12HR MORGAN Administration Quetiapine Fumarate 25 mg 08/20/24 21:00 08/20/24 21:10 Quetiapine Fumarate 25 Mg Tablet PO 25 mg HS MORGAN Administration Sodium Chloride 20 ml 08/06/24 23:57 08/07/24 06:05 Central Line Flush IV PUSH 20 ml PRN PRN Administration after blood draws Sodium Chloride 10 ml 08/06/24 23:57 Central Line Flush IV PUSH PRN PRN with TPN bag changes Sodium Chloride 10 ml 08/07/24 06:00 08/21/24 05:59 Central Line Flush IV PUSH 10 ml Q8HR MORGAN Administration Radiology Results: ITS Impressions Abdomen/Pelvis CT 08/08/24 06:07 Impression: Findings highly suspicious for extensive bowel ischemia, extensive small bowel and gastric pneumatosis and extensive portal venous gas. Extensive dilatation of small bowel loops and stomach with decompression of large bowel. Transition point not well delineated, but findings are highly suspicious for distal small bowel obstruction. NG tube tip at the GE junction. Further advancement of NG tube into the stomach is required for adequate placement. Small bilateral pleural effusions. Head CT 08/10/24 11:18 IMPRESSION: 1. Normal aging brain. Upper GI Series 08/10/24 13:27 IMPRESSION: Findings within the distal esophagus/proximal stomach for which prior fundoplication is suspected. Esophageal dysmotility and significant esophageal reflux is also detected. Chest X-Ray 08/15/24 10:10 IMPRESSION: Minimal opacification the right lung base suggestive of atelectasis versus pneumonia. Modified Barium Swallow 08/19/24 10:36 IMPRESSION: Oropharyngeal dysphagia with laryngeal penetration and aspiration. Please correlate with speech pathologist findings and specific feeding recommendations. Abdomen X-Ray 08/21/24 09:15 IMPRESSION: Gastrostomy tube in good position and ready for immediate use. Given the nursing notes document leakage around the tube, perhaps conversion to a gastrojejunostomy tube would be more appropriate in this patient, especially in her history of laryngeal penetration and aspiration. Consult interventional radiology, if this needs to be requested. Thank you for the opportunity to assist in the care of your patient. For questions or concerns regarding this interpretation, please reach out to me directly at [phone]. Labs Labs: Laboratory Results - last 24 hr 08/20/24 08/20/24 08/20/24 12:11 17:27 23:21 POC Capillary Glucose 133 H 95 Phenytoin 32 H* 08/21/24 08/21/24 08/21/24 00:51 05:57 06:58 POC Capillary Glucose 124 H 105 Phenytoin 29 H*
[2024-08-21 12:19] LABS: Glucose Point of Care 108 mg/dl (65-105)
[2024-08-21 18:09] LABS: Glucose Point of Care 113 mg/dl (65-105)
[2024-08-21] MEDS: ALTEPLASE 2 MG VIAL (CATHFLO) IV PUSH (20:22)
[2024-08-21] MEDS: QUEtiapine FUMARATE 25 MG TABLET PO (20:29)
[2024-08-21] MEDS: WATER, STERILE FOR INJECTION 10 ML VIAL XX (20:34)
[2024-08-22] VITALS (9 sets, daily range): BP systolic 107–116; BP diastolic 51–58; PULSE 82–96; RESP 14–20; TEMP 36.4–37.1; O2SAT 95–100
[2024-08-22 02:17] LABS: Glucose Point of Care 132 mg/dl (65-105)
[2024-08-22] MEDS: METOCLOPRAMIDE HCL INJ 10 MG/2 ML VIAL 5 MG IV PUSH ×4 (05:26→23:39)
[2024-08-22] MEDS: CENTRAL LINE FLUSH 10 ML IV PUSH ×6 (05:27→21:06)
[2024-08-22] MEDS: CENTRAL LINE FLUSH 20 ML IV PUSH (05:39)
[2024-08-22 06:06] LABS: Glucose Point of Care 102 mg/dl (65-105)
[2024-08-22 06:39] LABS: Phenytoin Dilantin 20 ug/mL (10-20)
[2024-08-22] MEDS: IPRATROPIUM 0.5 MG/ALBUTEROL SULFATE 2.5 MG AMPUL.NEB 3 ML INHALATION ×3 (07:29→20:54)
[2024-08-22] MEDS: LIDOCAINE 5% PATCH 1 PATCH TRANSDERM ×2 (09:39)
[2024-08-22] MEDS: dexAMETHasone SOD PHOS INJ 4 MG/ML VIAL IV PUSH ×2 (09:39→20:35)
[2024-08-22] MEDS: ENOXAPARIN 40 MG/0.4 ML SYRINGE SUB-Q (09:39)
[2024-08-22] MEDS: FUROSEMIDE 40 MG TABLET PO (09:39)
[2024-08-22] MEDS: PANTOPRAZOLE SODIUM IV 40 MG VIAL IV PUSH ×2 (09:39→20:32)
[2024-08-22] MEDS: ACETAMINOPHEN 325 MG TABLET 650 MG FEED TUBE (10:11)
--- NOTE | 2024-08-22 11:02 | PCNFU ---
Nutrition Follow-Up Complete: Altered GI function as related to SBO/Ileus as evidenced by TPN. goal: Meet estimated nutritional needs. Patient is progressing towards goal. We will continue current goal. Pt current nutrition is Jevity 1.5 at 40 ml/hr with Full liquids/Moderately thick, Level 2. Last recorded weight is 50 kg. Bowel Motility: +BM reported 08/22 Labs Reviewed: Glu 127, BUN 20, Cr 0.47, Hct 27.0, Hgb 8.9, Alb 3.1 Meds Noted:Reglan, Lovenox, Protonix, Zosyn Skin: WNL Additional Notes: Patient remains on a tube feedings of Jevity 1.5 at 40 ml/hr and tolerating. Flush 30 ml q 4 hours. Spoke with patient today regarding oral intake. She was able to tolerate pudding. Not liking the thickened liquids so we discussed diet supplements today, going to try Nutritional Ice Cream and Ensure. Agree with diet orders. Will monitor weight, labs, skin, diet orders, meds every Thursday and Thursday.
[2024-08-22 12:03] LABS: Glucose Point of Care 131 mg/dl (65-105)
--- NOTE | 2024-08-22 14:09 | P.PNGS_ITS ---
Progress Note: A&P Assessment and Plan (1) Ileus, postoperative: Code(s): K91.89 - Other postprocedural complications and disorders of digestive system; K56.7 - Ileus, unspecified Status: Acute Assessment and Plan: Resolved. Bowels continue to move. She is tolerating tube feeding at goal. She has poor oral intake because she does not like the thickened liquids. Will ask speech therapy to re-evaluate the patient today for another swallow study and continue speech therapy to work on her strength. Hopefully, her diet can be advanced, which will help with her oral intake. Once she is tolerating oral intake better, then we can start backing off of her tube feeding. Continue Reglan for now. Incision is healing well and whitley removed today. She is still working with PT/OT and planning to discharge to a rehab facility eventually. CC working on placement options and possibly looking into [facility]. (2) Incarcerated left inguinal hernia: Code(s): K40.30 - Unilateral inguinal hernia, with obstruction, without gangrene, not specified as recurrent Status: Acute Assessment and Plan: Repair intact and incision healing well. Plan I have discussed the patient's case and plan of care with Dr. Jett. Subjective Subjective Date/Time Seen: 08/22/24 14:09 Patient reports: no new complaints, flatus, bowel movement and afebrile Interval history: 08/03/24 - Open incarcerated left femoral hernia repair without mesh 08/08/24 - Exploratory laparotomy, open gastrostomy tube placement Patient complains of pain around her gastrostomy tube site. Her G-tube fell out on Thursday when she went down for the swallow study. She had a Khanna catheter p laced in the gastrostomy tube site, which was sutured in and remains in place. She is tolerating tube feedings at goal. She is not taking much food or drink in because she does not like the taste of the thickened liquids and she is nervous about getting distended again. She denies any nausea or bloating when taking things in, but is just worried about this. WBC count normal. Exam Const: General: comfortable and no acute distress Orientation/consciousness: patient oriented x3 GI: Other: Abdomen mildly distended but soft. Whitley intact with scant yellow drainage coming from a tiny 0.3 cm opening at the top of the incision, no significant erythema. Whitley removed and steri strips applied. Mild tenderness near the gastrostomy tube in the LUQ that has a suture in place, there is slight redness at the skin directly around the tube that appears irritated, but no warmth or surrounding erythema, no purulent drainage or induration. Extrem: General: no calf tenderness and no edema Objective Data Vital Signs Vital Signs: Vital Signs - 24 hr 08/21/24 14:29 08/21/24 14:29 08/21/24 14:36 Temperature Pulse Rate 81 87 Respiratory Rate 20 20 Blood Pressure Pulse Oximetry 95 Oxygen Delivery Room Air Fraction of Inspired Oxygen 21 08/21/24 17:25 08/21/24 20:00 08/21/24 20:01 Temperature 97.4 F L Pulse Rate 89 89 Respiratory Rate 16 20 Blood Pressure 109/61 Pulse Oximetry 97 Oxygen Delivery Room Air Fraction of Inspired Oxygen 08/21/24 20:07 08/21/24 20:09 08/21/24 22:33 Temperature 98 F Pulse Rate 86 89 Respiratory Rate 20 18 Blood Pressure 108/44 L Pulse Oximetry 98 97 Oxygen Delivery Room Air Fraction of Inspired Oxygen 08/22/24 05:38 08/22/24 07:29 08/22/24 07:29 Temperature 98.8 F Pulse Rate 88 84 Respiratory Rate 16 20 Blood Pressure 107/54 L Pulse Oximetry 100 96 Oxygen Delivery Room Air Fraction of Inspired Oxygen 08/22/24 07:52 08/22/24 13:58 08/22/24 14:05 Temperature Pulse Rate 86 94 95 Respiratory Rate 20 20 20 Blood Pressure Pulse Oximetry Oxygen Delivery Fraction of Inspired Oxygen Intake/Output Intake/Output: Intake & Output 08/19/24 08/20/24 08/21/24 08/22/24 23:59 23:59 23:59 23:59 Intake Total 197 870 1882 892 Output Total 1450 1450 Balance -1330 -479 1560 892 Meds/Results Medications: Active Medications Generic Name Dose Route Start Last Admin Trade Name Freq PRN Reason Stop Dose Admin Acetaminophen 650 mg 08/18/24 13:39 08/22/24 10:11 Acetaminophen 325 Mg Tablet FEED TUBE 650 mg Q4H PRN Administration Mild Pain (1-3) or Fever Hydrocodone Bitart/Acetaminophen 1 tab 08/18/24 13:39 08/21/24 16:56 Hydrocodone/Acetaminophen (*Crx) 5-325 Mg Tablet FEED TUBE 1 tab Q4H PRN Administration Pain Rated 4-6 Albuterol/Ipratropium 3 ml 08/15/24 14:00 08/22/24 13:58 Ipratropium 0.5 Mg/Albuterol Sulfate 2.5 Mg Ampul.Neb 3 Ml INHALATION 3 ml Q6HRT MORGAN Administration Alteplase, Recombinant 2 mg 08/21/24 20:01 08/21/24 20:22 Alteplase 2 Mg Vial (Cathflo) IV PUSH 2 mg ONCE PRN Administration Line Occlusion Bisacodyl 10 mg 08/18/24 14:02 Bisacodyl 10 Mg Suppository RECTAL QAM PRN Constipation Dexamethasone Sodium Phosphate 4 mg 08/18/24 21:00 08/22/24 09:39 Dexamethasone Sod Phos Inj 4 Mg/Ml Vial IV PUSH 4 mg Q12HR MORGAN Administration Dextrose 12.5 gm 08/09/24 07:57 Dextrose 50% 25 Gm/50 Ml Syringe IV PUSH PRN PRN Hypoglycemia Protocol Enoxaparin Sodium 40 mg 08/05/24 09:00 08/22/24 09:39 Enoxaparin 40 Mg/0.4 Ml Syringe SUB-Q 40 mg DAILY MORGAN Administration Furosemide 40 mg 08/16/24 09:00 08/22/24 09:39 Furosemide 40 Mg Tablet PO 40 mg DAILY MORGAN Administration Glucagon 1 mg 08/09/24 07:57 Glucagon For Inj 1 Mg Vial IM PRN PRN Hypoglycemia Protocol Glucose 15 gm 08/09/24 07:57 Glucose Oral Gel 15 Gm Of Glucse In 37.5 Gm Tube PO PRN PRN Hypoglycemia Protocol Hydromorphone HCl 0.5 mg 08/09/24 11:55 08/20/24 22:45 Hydromorphone Hcl Inj (*Crx) 1 Mg/Ml Syr IV PUSH 0.5 mg Q2H PRN Administration Pain Rated 7-10 Dextrose 1,000 mls @ 100 mls/hr 08/09/24 07:57 Dextrose 5% 1,000 Ml IVPB PRN PRN Hypoglycemia Protocol Insulin Aspart 2 - 5 units 08/09/24 12:00 08/22/24 13:20 Insulin Aspart (*Bkc) 100 Units/Ml SUB-Q Not Given Q6HR MORGAN Protocol Lidocaine 1 patch 08/04/24 10:25 08/22/24 09:39 Lidocaine 5% Patch TRANSDERM 1 patch DAILY MORGAN Administration Lidocaine 1 patch 08/15/24 09:00 08/22/24 09:39 Lidocaine 5% Patch TRANSDERM 1 patch DAILY MORGAN Administration Metoclopramide HCl 5 mg 08/13/24 18:00 08/22/24 13:30 Metoclopramide Hcl Inj 10 Mg/2 Ml Vial IV PUSH 5 mg Q6HR MORGAN Administration Naloxone HCl 0.1 mg 08/08/24 05:45 Naloxone Hcl 0.4 Mg/Ml Vial IV PUSH Q2M PRN Opiate Reversal Ondansetron HCl 4 mg 08/03/24 15:38 08/15/24 20:54 Ondansetron Inj 4 Mg/2 Ml Vial IV PUSH 4 mg Q4H PRN Administration Nausea Pantoprazole Sodium 40 mg 08/12/24 21:00 08/22/24 09:39 Pantoprazole Sodium Iv 40 Mg Vial IV PUSH 40 mg Q12HR MORGAN Administration Phenytoin 100 mg 08/22/24 13:45 Phenytoin Susp 100 Mg/4 Ml Udc PO DAILY MORGAN Phenytoin 150 mg 08/22/24 21:00 Phenytoin Susp 100 Mg/4 Ml Udc PO HS MORGAN Quetiapine Fumarate 25 mg 08/20/24 21:00 08/21/24 20:29 Quetiapine Fumarate 25 Mg Tablet PO 25 mg HS MORGAN Administration Sodium Chloride 20 ml 08/06/24 23:57 08/07/24 06:05 Central Line Flush IV PUSH 20 ml PRN PRN Administration after blood draws Sodium Chloride 10 ml 08/06/24 23:57 Central Line Flush IV PUSH PRN PRN with TPN bag changes Sodium Chloride 10 ml 08/07/24 06:00 08/22/24 13:30 Central Line Flush IV PUSH 10 ml Q8HR MORGAN Administration Sodium Chloride 20 ml 08/22/24 05:25 08/22/24 05:39 Central Line Flush IV PUSH 20 ml PRN PRN Administration after blood draws Sodium Chloride 10 ml 08/22/24 05:25 Central Line Flush IV PUSH PRN PRN with TPN bag changes Sodium Chloride 10 ml 08/22/24 06:00 08/22/24 13:31 Central Line Flush IV PUSH 10 ml Q8HR MORGAN Administration Radiology Results: ITS Impressions Abdomen/Pelvis CT 08/08/24 06:07 Impression: Findings highly suspicious for extensive bowel ischemia, extensive small bowel and gastric pneumatosis and extensive portal venous gas. Extensive dilatation of small bowel loops and stomach with decompression of large bowel. Transition point not well delineated, but findings are highly suspicious for distal small bowel obstruction. NG tube tip at the GE junction. Further advancement of NG tube into the stomach is required for adequate placement. Small bilateral pleural effusions. Head CT 08/10/24 11:18 IMPRESSION: 1. Normal aging brain. Upper GI Series 08/10/24 13:27 IMPRESSION: Findings within the distal esophagus/proximal stomach for which prior fundoplication is suspected. Esophageal dysmotility and significant esophageal reflux is also detected. Chest X-Ray 08/15/24 10:10 IMPRESSION: Minimal opacification the right lung base suggestive of atelectasis versus pneumonia. Modified Barium Swallow 08/19/24 10:36 IMPRESSION: Oropharyngeal dysphagia with laryngeal penetration and aspiration. Please correlate with speech pathologist findings and specific feeding recommendations. Abdomen X-Ray 08/21/24 16:13 IMPRESSION: Significant gaseous distention of the colon. Contrast opacification of the rectum which is markedly distended. Percutaneous gastrostomy to the left of midline. Labs Labs: Laboratory Results - last 24 hr 08/21/24 08/22/24 08/22/24 18:02 01:12 05:35 POC Capillary Glucose 113 H 132 H 102 Phenytoin 08/22/24 08/22/24 05:37 11:57 POC Capillary Glucose 131 H Phenytoin 20
--- NOTE | 2024-08-22 17:45 | P.PNIM_ITS ---
Progress Note: A&P Assessment and Plan (1) Small bowel obstruction: Code(s): K56.609 - Unspecified intestinal obstruction, unspecified as to partial versus complete obstruction Status: Acute Assessment and Plan: Status post 08/03 Open incarcerated left femoral hernia repair without mesh 08/08 Exploratory laparotomy, gastrostomy tube placement S/p EGD showed intact gastrostomy tube and gastritis 08/19:Bedside replacement of dislodged gastrostomy tube with Khanna catheter through existing tract. Tube feeding now at goal, s/p TPN advance diet per speech recs continue advancing diet as tolerated plan is to monitor this and re-eval on Thursday for discharge planning GI and GEN surgery following (2) Ileus, postoperative: Code(s): K91.89 - Other postprocedural complications and disorders of digestive system; K56.7 - Ileus, unspecified Status: Acute Assessment and Plan: Resolving Tube feeds at goal monitor (3) Incarcerated left inguinal hernia: Code(s): K40.30 - Unilateral inguinal hernia, with obstruction, without gangrene, not specified as recurrent Status: Acute Assessment and Plan: See above (4) EULLAIO (acute kidney injury): Code(s): N17.9 - Acute kidney failure, unspecified Status: Acute Assessment and Plan: resolved (5) Sepsis: Code(s): A41.9 - Sepsis, unspecified organism Status: Acute Assessment and Plan: Completed Zosyn. UA was unremarkable 08/08: blood cultures are negative so far CXR shows pneumonia add iv vancomycin (6) Seizures: Code(s): R56.9 - Unspecified convulsions Status: Chronic Assessment and Plan: Dilantin level is 29, will hold phenytoin and repeat in am. (7) Electrolyte abnormality: Code(s): E87.8 - Other disorders of electrolyte and fluid balance, not elsewhere classified Status: Acute Assessment and Plan: Replace potassium (8) Pulmonary edema: Code(s): J81.1 - Chronic pulmonary edema Status: Acute Assessment and Plan: Chest x-ray shows pulmonary edema. Elevated BNP Echo reviewed lasix x1 today for SOB and wheezy lungs (9) Leukocytosis: Code(s): D72.829 - Elevated white blood cell count, unspecified Status: Acute Assessment and Plan: pt on iv zosyn and iv vancomycin added for possible aspiration pneumonia watch cultures Plan Anemia Hb 8.5 Isat 24 iron replete B12 953 and Folate 5.6 DVT prophylaxis on Sq lovenox Discharge planning from Thursday, continue Tube feeding and oral diet advance this Subjective Date/time seen: 08/22/24 17:45 Interval history: Interval Hx: Patient has a prolonged hospitalization from 08/03-08/22 Events that happened during the hospitalization includes: 08/03 :Open incarcerated left femoral hernia repair without mesh 08/08 :Exploratory laparotomy, gastrostomy tube placement S/P EGD showed intact gastrostomy tube and gastritis 08/19:Bedside replacement of dislodged gastrostomy tube with Khanna catheter through existing tract. Plan is currently doing well. Patient is tolerating tube feed. Once patient takes oral feeding will decrease the tube feeding. Review of Systems Review of Systems: SOB and wheezy lungs today All systems reviewed & are unremarkable except as noted in HPI and below (HPI) Exam Narrative: General: Frail elderly lady with NG tube in situ and tube feeds Lungs/Chest: BL wheezy lungs Cardiac: RRR. Normal S1 S2. No murmurs Circulation: Palpable pedal pulses, feet are warm Abdomen: Hypoactive bowel sound. Mild tenderness to palpation, gastrostomy tube in place, incision under dressing Extremities: No clubbing or cyanosis, bilateral edema present : Khanna in place Neurologic: Follows commands. Moves all 4 extremities PERRL AO x3 Skin: No Rash Const: General: comfortable and no acute distress Other: The patient is recumbent in a stretcher in the PACU. , female, elderly, modestly ill-appearing. +fatigue. HENMT: Face/Nose/Sinus: Normal nares present Mouth: Yes dry mucous membranes Other: NG in place. Eyes: General: appearance normal, both eyes and all related structures Sclera: sclerae normal Pupils: Equal, round and reactive pupils present EOM: EOMs intact bilaterally Resp: Effort & Inspection: normal respiratory effort Auscultation: clear to auscultation bilaterally Cardio: Rate: regular rate Rhythm: regular rhythm Other: S1-S2 present without murmur, rub, ectopy GI: Other: Abdomen firm, distended. bowel sounds present, Drain in place, serosanguineous output. Skin: General skin exam: normal color and no rashes or lesions noted Wounds: no wounds Neuro: Cranial nerves: Yes Equal, round and reactive pupils present Speech: normal speech Motor exam (neuro): 5/5 motor strength present throughout Sensory Exam: normal sensation Other: A&O x4, mildly somnolent. Extrem: General: normal to inspection Psych: Mental Status: mental status grossly normal Affect: normal affect Other: Good insight and judgment, pleasant Objective Data Vital Signs Vital Signs: Vital Signs - 24 hr 08/21/24 20:00 08/21/24 20:01 08/21/24 20:07 Temperature Pulse Rate 89 Respiratory Rate 20 Blood Pressure Pulse Oximetry 98 Oxygen Delivery Room Air Room Air Fraction of Inspired Oxygen 21 08/21/24 20:09 08/21/24 22:33 08/22/24 05:38 Temperature 98 F 98.8 F Pulse Rate 86 89 88 Respiratory Rate 20 18 16 Blood Pressure 108/44 L 107/54 L Pulse Oximetry 97 100 Oxygen Delivery Fraction of Inspired Oxygen 08/22/24 07:29 08/22/24 07:29 08/22/24 07:52 Temperature Pulse Rate 84 86 Respiratory Rate 20 20 Blood Pressure Pulse Oximetry 96 Oxygen Delivery Room Air Fraction of Inspired Oxygen 08/22/24 08:30 08/22/24 13:58 08/22/24 14:05 Temperature Pulse Rate 94 95 Respiratory Rate 20 20 Blood Pressure Pulse Oximetry Oxygen Delivery Room Air Fraction of Inspired Oxygen 08/22/24 16:00 Temperature 97.6 F Pulse Rate 96 Respiratory Rate 16 Blood Pressure 116/58 L Pulse Oximetry 99 Oxygen Delivery Fraction of Inspired Oxygen Intake/Output Intake/Output: Intake & Output 08/19/24 08/20/24 08/21/24 08/22/24 23:59 23:59 23:59 23:59 Intake Total 189 826 0571 1012 Output Total 1450 1450 Balance -1330 -479 1560 1012 Meds/Results Medications: Active Medications Generic Name Dose Route Start Last Admin Trade Name Freq PRN Reason Stop Dose Admin Acetaminophen 650 mg 08/18/24 13:39 08/22/24 10:11 Acetaminophen 325 Mg Tablet FEED TUBE 650 mg Q4H PRN Administration Mild Pain (1-3) or Fever Hydrocodone Bitart/Acetaminophen 1 tab 08/18/24 13:39 08/21/24 16:56 Hydrocodone/Acetaminophen (*Crx) 5-325 Mg Tablet FEED TUBE 1 tab Q4H PRN Administration Pain Rated 4-6 Albuterol/Ipratropium 3 ml 08/15/24 14:00 08/22/24 13:58 Ipratropium 0.5 Mg/Albuterol Sulfate 2.5 Mg Ampul.Neb 3 Ml INHALATION 3 ml Q6HRT MORGAN Administration Alteplase, Recombinant 2 mg 08/21/24 20:01 08/21/24 20:22 Alteplase 2 Mg Vial (Cathflo) IV PUSH 2 mg ONCE PRN Administration Line Occlusion Bisacodyl 10 mg 08/18/24 14:02 Bisacodyl 10 Mg Suppository RECTAL QAM PRN Constipation Dexamethasone Sodium Phosphate 4 mg 08/18/24 21:00 08/22/24 09:39 Dexamethasone Sod Phos Inj 4 Mg/Ml Vial IV PUSH 4 mg Q12HR MORGAN Administration Dextrose 12.5 gm 08/09/24 07:57 Dextrose 50% 25 Gm/50 Ml Syringe IV PUSH PRN PRN Hypoglycemia Protocol Enoxaparin Sodium 40 mg 08/05/24 09:00 08/22/24 09:39 Enoxaparin 40 Mg/0.4 Ml Syringe SUB-Q 40 mg DAILY MORGAN Administration Furosemide 40 mg 08/16/24 09:00 08/22/24 09:39 Furosemide 40 Mg Tablet PO 40 mg DAILY MORGAN Administration Glucagon 1 mg 08/09/24 07:57 Glucagon For Inj 1 Mg Vial IM PRN PRN Hypoglycemia Protocol Glucose 15 gm 08/09/24 07:57 Glucose Oral Gel 15 Gm Of Glucse In 37.5 Gm Tube PO PRN PRN Hypoglycemia Protocol Hydromorphone HCl 0.5 mg 08/09/24 11:55 08/20/24 22:45 Hydromorphone Hcl Inj (*Crx) 1 Mg/Ml Syr IV PUSH 0.5 mg Q2H PRN Administration Pain Rated 7-10 Dextrose 1,000 mls @ 100 mls/hr 08/09/24 07:57 Dextrose 5% 1,000 Ml IVPB PRN PRN Hypoglycemia Protocol Insulin Aspart 2 - 5 units 08/09/24 12:00 08/22/24 17:41 Insulin Aspart (*Bkc) 100 Units/Ml SUB-Q Not Given Q6HR MORGAN Protocol Lidocaine 1 patch 08/04/24 10:25 08/22/24 09:39 Lidocaine 5% Patch TRANSDERM 1 patch DAILY MORGAN Administration Lidocaine 1 patch 08/15/24 09:00 08/22/24 09:39 Lidocaine 5% Patch TRANSDERM 1 patch DAILY MORGAN Administration Metoclopramide HCl 5 mg 08/13/24 18:00 08/22/24 17:40 Metoclopramide Hcl Inj 10 Mg/2 Ml Vial IV PUSH 5 mg Q6HR MORGAN Administration Naloxone HCl 0.1 mg 08/08/24 05:45 Naloxone Hcl 0.4 Mg/Ml Vial IV PUSH Q2M PRN Opiate Reversal Ondansetron HCl 4 mg 08/03/24 15:38 08/15/24 20:54 Ondansetron Inj 4 Mg/2 Ml Vial IV PUSH 4 mg Q4H PRN Administration Nausea Pantoprazole Sodium 40 mg 08/12/24 21:00 08/22/24 09:39 Pantoprazole Sodium Iv 40 Mg Vial IV PUSH 40 mg Q12HR MORGAN Administration Phenytoin 100 mg 08/22/24 13:45 08/22/24 14:16 Phenytoin Susp 100 Mg/4 Ml Udc PO 100 mg DAILY MORGAN Administration Phenytoin 150 mg 08/22/24 21:00 Phenytoin Susp 100 Mg/4 Ml Udc PO HS MORGAN Quetiapine Fumarate 25 mg 08/20/24 21:00 08/21/24 20:29 Quetiapine Fumarate 25 Mg Tablet PO 25 mg HS MORGAN Administration Sodium Chloride 20 ml 08/06/24 23:57 08/07/24 06:05 Central Line Flush IV PUSH 20 ml PRN PRN Administration after blood draws Sodium Chloride 10 ml 08/06/24 23:57 Central Line Flush IV PUSH PRN PRN with TPN bag changes Sodium Chloride 10 ml 08/07/24 06:00 08/22/24 13:30 Central Line Flush IV PUSH 10 ml Q8HR MORGAN Administration Sodium Chloride 20 ml 08/22/24 05:25 08/22/24 05:39 Central Line Flush IV PUSH 20 ml PRN PRN Administration after blood draws Sodium Chloride 10 ml 08/22/24 05:25 Central Line Flush IV PUSH PRN PRN with TPN bag changes Sodium Chloride 10 ml 08/22/24 06:00 08/22/24 13:31 Central Line Flush IV PUSH 10 ml Q8HR MORGAN Administration Radiology Results: ITS Impressions Abdomen/Pelvis CT 08/08/24 06:07 Impression: Findings highly suspicious for extensive bowel ischemia, extensive small bowel and gastric pneumatosis and extensive portal venous gas. Extensive dilatation of small bowel loops and stomach with decompression of large bowel. Transition point not well delineated, but findings are highly suspicious for distal small bowel obstruction. NG tube tip at the GE junction. Further advancement of NG tube into the stomach is required for adequate placement. Small bilateral pleural effusions. Head CT 08/10/24 11:18 IMPRESSION: 1. Normal aging brain. Upper GI Series 08/10/24 13:27 IMPRESSION: Findings within the distal esophagus/proximal stomach for which prior fundoplication is suspected. Esophageal dysmotility and significant esophageal reflux is also detected. Chest X-Ray 08/15/24 10:10 IMPRESSION: Minimal opacification the right lung base suggestive of atelectasis versus pn eumonia. Modified Barium Swallow 08/19/24 10:36 IMPRESSION: Oropharyngeal dysphagia with laryngeal penetration and aspiration. Please correlate with speech pathologist findings and specific feeding recommendations. Abdomen X-Ray 08/21/24 16:13 IMPRESSION: Significant gaseous distention of the colon. Contrast opacification of the rectum which is markedly distended. Percutaneous gastrostomy to the left of midline. Labs Labs: Laboratory Results - last 24 hr 08/21/24 08/22/24 08/22/24 18:02 01:12 05:35 POC Capillary Glucose 113 H 132 H 102 Phenytoin 08/22/24 08/22/24 05:37 11:57 POC Capillary Glucose 131 H Phenytoin 20 Quality VTE Prophylaxis VTE prophylaxis: mechanical ordered Hospitalist [facility] Advance Care Plan I have confirmed that the patient's Advanced Care Plan is present, code status is documented, or surrogate decision maker is listed in patient medical record.: Yes Medication Reconciliation I have utilized all available resources to obtain, update and review the patients current medications (includes all prescriptions, OTC, herbals, cannabis, and nutritional supplements).: Yes
[2024-08-22] MEDS: HYDROcodone/acetaminophen (*CRX) 5-325 MG TABLET 1 TAB FEED TUBE (18:42)
[2024-08-22 18:47] LABS: Glucose Point of Care 114 mg/dl (65-105)
[2024-08-22] MEDS: QUEtiapine FUMARATE 25 MG TABLET PO (20:35)
[2024-08-23] VITALS (10 sets, daily range): BP systolic 107–111; BP diastolic 43–58; PULSE 69–96; RESP 15–19; TEMP 36.6–37; O2SAT 98–100
[2024-08-23 00:10] LABS: Glucose Point of Care 137 mg/dl (65-105)
[2024-08-23] MEDS: IPRATROPIUM 0.5 MG/ALBUTEROL SULFATE 2.5 MG AMPUL.NEB 3 ML INHALATION ×3 (02:39→21:00)
[2024-08-23] MEDS: METOCLOPRAMIDE HCL INJ 10 MG/2 ML VIAL 5 MG IV PUSH ×3 (06:06→17:38)
[2024-08-23] MEDS: CENTRAL LINE FLUSH 10 ML IV PUSH ×4 (06:07→22:30)
[2024-08-23 07:07] LABS: Glucose Point of Care 116 mg/dl (65-105)
--- NOTE | 2024-08-23 09:20 | PM.IMPN ---
Progress Note: A&P Assessment and Plan (1) Small bowel obstruction: Code(s): K56.609 - Unspecified intestinal obstruction, unspecified as to partial versus complete obstruction Status: Acute Assessment and Plan: Patient has a prolonged hospitalization from 08/03-08/23 Events that happened during the hospitalization includes: 08/03 :Open incarcerated left femoral hernia repair without mesh 08/08 :Exploratory laparotomy, gastrostomy tube placement S/P EGD showed intact gastrostomy tube and gastritis 08/19:Bedside replacement of dislodged gastrostomy tube with Khanna catheter through existing tract. Status post 08/03 Open incarcerated left femoral hernia repair without mesh 08/08 Exploratory laparotomy, gastrostomy tube placement S/p EGD showed intact gastrostomy tube and gastritis 08/19:Bedside replacement of dislodged gastrostomy tube with Khanna catheter through existing tract. Tube feeding now at goal, s/p TPN advance diet per speech recs continue advancing diet as tolerated plan is to monitor this and re-eval on Thursday for discharge planning GI and GEN surgery following (2) Ileus, postoperative: Code(s): K91.89 - Other postprocedural complications and disorders of digestive system; K56.7 - Ileus, unspecified Status: Acute Assessment and Plan: Resolving Tube feeds at goal monitor (3) Incarcerated left inguinal hernia: Code(s): K40.30 - Unilateral inguinal hernia, with obstruction, without gangrene, not specified as recurrent Status: Acute Assessment and Plan: See above (4) EULALIO (acute kidney injury): Code(s): N17.9 - Acute kidney failure, unspecified Status: Acute Assessment and Plan: resolved (5) Sepsis: Code(s): A41.9 - Sepsis, unspecified organism Status: Acute Assessment and Plan: Completed Zosyn. UA was unremarkable 08/08: blood cultures are negative so far CXR shows pneumonia add iv vancomycin (6) Seizures: Code(s): R56.9 - Unspecified convulsions Status: Chronic Assessment and Plan: Dilantin level is 29, will hold phenytoin and repeat in am. Continue the home dose of phenytoin 150 mg p.o. q.am and 150 mg p.o. q.h.s. (7) Electrolyte abnormality: Code(s): E87.8 - Other disorders of electrolyte and fluid balance, not elsewhere classified Status: Acute Assessment and Plan: Replace potassium (8) Pulmonary edema: Code(s): J81.1 - Chronic pulmonary edema Status: Acute Assessment and Plan: Chest x-ray shows pulmonary edema. Elevated BNP Echo reviewed lasix x1 today for SOB and wheezy lungs (9) Leukocytosis: Code(s): D72.829 - Elevated white blood cell count, unspecified Status: Acute Assessment and Plan: Resolved Status post iv zosyn and iv vancomycin added for possible aspiration pneumonia watch cultures Plan DVT prophylaxis on Sq lovenox Discharge planning from Thursday, continue Tube feeding and oral diet advance this Subjective Date/time seen: 08/23/24 09:20 Interval history: Interval Hx: Patient has a prolonged hospitalization from 08/03-08/22 Events that happened during the hospitalization includes: 08/03 :Open incarcerated left femoral hernia repair without mesh 08/08 :Exploratory laparotomy, gastrostomy tube placement S/P EGD showed intact gastrostomy tube and gastritis 08/19:Bedside replacement of dislodged gastrostomy tube with Khanna catheter through existing tract. 08/23: Pt is currently doing well. Patient is tolerating tube feed. Once patient takes oral feeding will decrease the tube feeding. Discussed with surgery about the Khanna tube which is used as PEG tube. As per surgery possibly will take the Khanna due out of the stoma before discharge when patient was able to increase oral intake.Discussed with speech therapy recommend level for puree and level 2 mildly thick liquids with chin tuck. Review of Systems Review of Systems: SOB and wheezy lungs today All systems reviewed & are unremarkable except as noted in HPI and below (HPI) Exam Narrative: General: Frail elderly lady with NG tube in situ and tube feeds Lungs/Chest: BL wheezy lungs Cardiac: RRR. Normal S1 S2. No murmurs Circulation: Palpable pedal pulses, feet are warm Abdomen: Hypoactive bowel sound. Mild tenderness to palpation, gastrostomy tube in place, incision under dressing Extremities: No clubbing or cyanosis, bilateral edema present : Khanna in place Neurologic: Follows commands. Moves all 4 extremities PERRL AO x3 Skin: No Rash Const: General: comfortable and no acute distress Other: The patient is recumbent in a stretcher in the PACU. , female, elderly, modestly ill-appearing. +fatigue. HENMT: Face/Nose/Sinus: Normal nares present Mouth: Yes dry mucous membranes Other: NG in place. Eyes: General: appearance normal, both eyes and all related structures Sclera: sclerae normal Pupils: Equal, round and reactive pupils present EOM: EOMs intact bilaterally Resp: Effort & Inspection: normal respiratory effort Auscultation: clear to auscultation bilaterally Cardio: Rate: regular rate Rhythm: regular rhythm Other: S1-S2 present without murmur, rub, ectopy GI: Other: Abdomen firm, distended. bowel sounds present, Drain in place, serosanguineous output. Skin: General skin exam: normal color and no rashes or lesions noted Wounds: no wounds Neuro: Cranial nerves: Yes Equal, round and reactive pupils present Speech: normal speech Motor exam (neuro): 5/5 motor strength present throughout Sensory Exam: normal sensation Other: A&O x4, mildly somnolent. Extrem: General: normal to inspection Psych: Mental Status: mental status grossly normal Affect: normal affect Other: Good insight and judgment, pleasant Objective Data Vital Signs Vital Signs: Vital Signs - 24 hr 08/22/24 13:58 08/22/24 14:05 08/22/24 16:00 Temperature 97.6 F Pulse Rate 94 95 96 Respiratory Rate 20 20 16 Blood Pressure 116/58 L Pulse Oximetry 99 Oxygen Delivery 08/22/24 20:00 08/22/24 20:54 08/22/24 20:59 Temperature Pulse Rate 86 Respiratory Rate 18 Blood Pressure Pulse Oximetry 95 Oxygen Delivery Room Air Room Air 08/22/24 20:59 08/22/24 21:37 08/23/24 02:39 Temperature 97.6 F Pulse Rate 82 94 80 Respiratory Rate 18 14 15 Blood Pressure 116/51 L Pulse Oximetry 99 Oxygen Delivery 08/23/24 02:45 08/23/24 05:12 Temperature 98.2 F Pulse Rate 69 88 Respiratory Rate 15 16 Blood Pressure 108/43 L Pulse Oximetry 99 Oxygen Delivery Intake/Output Intake/Output: Intake & Output 08/20/24 08/21/24 08/22/24 08/23/24 23:59 23:59 23:59 23:59 Intake Total 971 1560 5 1240 Output Total 1450 Balance -479 1560 5 1240 Meds/Results Medications: Active Medications Generic Name Dose Route Start Last Admin Trade Name Freq PRN Reason Stop Dose Admin Acetaminophen 650 mg 08/18/24 13:39 08/22/24 10:11 Acetaminophen 325 Mg Tablet FEED TUBE 650 mg Q4H PRN Administration Mild Pain (1-3) or Fever Hydrocodone Bitart/Acetaminophen 1 tab 08/18/24 13:39 08/22/24 18:42 Hydrocodone/Acetaminophen (*Crx) 5-325 Mg Tablet FEED TUBE 1 tab Q4H PRN Administration Pain Rated 4-6 Albuterol/Ipratropium 3 ml 08/15/24 14:00 08/23/24 02:39 Ipratropium 0.5 Mg/Albuterol Sulfate 2.5 Mg Ampul.Neb 3 Ml INHALATION 3 ml Q6HRT MORGAN Administration Alteplase, Recombinant 2 mg 08/21/24 20:01 08/21/24 20:22 Alteplase 2 Mg Vial (Cathflo) IV PUSH 2 mg ONCE PRN Administration Line Occlusion Bisacodyl 10 mg 08/18/24 14:02 Bisacodyl 10 Mg Suppository RECTAL QAM PRN Constipation Dexamethasone Sodium Phosphate 4 mg 08/18/24 21:00 08/22/24 20:35 Dexamethasone Sod Phos Inj 4 Mg/Ml Vial IV PUSH 4 mg Q12HR MORGAN Administration Dextrose 12.5 gm 08/09/24 07:57 Dextrose 50% 25 Gm/50 Ml Syringe IV PUSH PRN PRN Hypoglycemia Protocol Enoxaparin Sodium 40 mg 08/05/24 09:00 08/22/24 09:39 Enoxaparin 40 Mg/0.4 Ml Syringe SUB-Q 40 mg DAILY MORGAN Administration Furosemide 40 mg 08/16/24 09:00 08/22/24 09:39 Furosemide 40 Mg Tablet PO 40 mg DAILY MORGAN Administration Glucagon 1 mg 08/09/24 07:57 Glucagon For Inj 1 Mg Vial IM PRN PRN Hypoglycemia Protocol Glucose 15 gm 08/09/24 07:57 Glucose Oral Gel 15 Gm Of Glucse In 37.5 Gm Tube PO PRN PRN Hypoglycemia Protocol Hydromorphone HCl 0.5 mg 08/09/24 11:55 08/20/24 22:45 Hydromorphone Hcl Inj (*Crx) 1 Mg/Ml Syr IV PUSH 0.5 mg Q2H PRN Administration Pain Rated 7-10 Dextrose 1,000 mls @ 100 mls/hr 08/09/24 07:57 Dextrose 5% 1,000 Ml IVPB PRN PRN Hypoglycemia Protocol Insulin Aspart 2 - 5 units 08/09/24 12:00 08/23/24 06:13 Insulin Aspart (*Bkc) 100 Units/Ml SUB-Q Not Given Q6HR MORGAN Protocol Lidocaine 1 patch 08/04/24 10:25 08/22/24 09:39 Lidocaine 5% Patch TRANSDERM 1 patch DAILY MORGAN Administration Lidocaine 1 patch 08/15/24 09:00 08/22/24 09:39 Lidocaine 5% Patch TRANSDERM 1 patch DAILY MORGAN Administration Metoclopramide HCl 5 mg 08/13/24 18:00 08/23/24 06:06 Metoclopramide Hcl Inj 10 Mg/2 Ml Vial IV PUSH 5 mg Q6HR MORGAN Administration Naloxone HCl 0.1 mg 08/08/24 05:45 Naloxone Hcl 0.4 Mg/Ml Vial IV PUSH Q2M PRN Opiate Reversal Ondansetron HCl 4 mg 08/03/24 15:38 08/15/24 20:54 Ondansetron Inj 4 Mg/2 Ml Vial IV PUSH 4 mg Q4H PRN Administration Nausea Pantoprazole Sodium 40 mg 08/12/24 21:00 08/22/24 20:32 Pantoprazole Sodium Iv 40 Mg Vial IV PUSH 40 mg Q12HR MORGAN Administration Phenytoin 100 mg 08/22/24 13:45 08/22/24 14:16 Phenytoin Susp 100 Mg/4 Ml Udc PO 100 mg DAILY MORGAN Administration Phenytoin 150 mg 08/22/24 21:00 08/22/24 20:31 Phenytoin Susp 100 Mg/4 Ml Udc PO 150 mg HS MORGAN Administration Quetiapine Fumarate 25 mg 08/20/24 21:00 08/22/24 20:35 Quetiapine Fumarate 25 Mg Tablet PO 25 mg HS MORGAN Administration Sodium Chloride 20 ml 08/06/24 23:57 08/07/24 06:05 Central Line Flush IV PUSH 20 ml PRN PRN Administration after blood draws Sodium Chloride 10 ml 08/06/24 23:57 Central Line Flush IV PUSH PRN PRN with TPN bag changes Sodium Chloride 10 ml 08/07/24 06:00 08/23/24 06:07 Central Line Flush IV PUSH 10 ml Q8HR MORGAN Administration Sodium Chloride 20 ml 08/22/24 05:25 08/22/24 05:39 Central Line Flush IV PUSH 20 ml PRN PRN Administration after blood draws Sodium Chloride 10 ml 08/22/24 05:25 Central Line Flush IV PUSH PRN PRN with TPN bag changes Sodium Chloride 10 ml 08/22/24 06:00 08/23/24 06:07 Central Line Flush IV PUSH 10 ml Q8HR MORGAN Administration Radiology Results: ITS Impressions Abdomen/Pelvis CT 08/08/24 06:07 Impression: Findings highly suspicious for extensive bowel ischemia, extensive small bowel and gastric pneumatosis and extensive portal venous gas. Extensive dilatation of small bowel loops and stomach with decompression of large bowel. Transition point not well delineated, but findings are highly suspicious for distal small bowel obstruction. NG tube tip at the GE junction. Further advancement of NG tube into the stomach is required for adequate placement. Small bilateral pleural effusions. Head CT 08/10/24 11:18 IMPRESSION: 1. Normal aging brain. Upper GI Series 08/10/24 13:27 IMPRESSION: Findings within the distal esophagus/proximal stomach for which prior fundoplication is suspected. Esophageal dysmotility and significant esophageal reflux is also detected. Chest X-Ray 08/15/24 10:10 IMPRESSION: Minimal opacification the right lung base suggestive of atelectasis versus pneumonia. Modified Barium Swallow 08/19/24 10:36 IMPRESSION: Oropharyngeal dysphagia with laryngeal penetration and aspiration. Please correlate with speech pathologist findings and specific feeding recommendations. Abdomen X-Ray 08/21/24 16:13 IMPRESSION: Significant gaseous distention of the colon. Contrast opacification of the rectum which is markedly distended. Percutaneous gastrostomy to the left of midline. Labs Labs: Laboratory Results - last 24 hr 08/22/24 08/22/24 08/22/24 11:57 18:41 23:41 POC Capillary Glucose 131 H 114 H 137 H 08/23/24 06:28 POC Capillary Glucose 116 H Quality VTE Prophylaxis VTE prophylaxis: mechanical ordered Hospitalist [facility] Advance Care Plan I have confirmed that the patient's Advanced Care Plan is present, code status is documented, or surrogate decision maker is listed in patient medical record.: Yes Medication Reconciliation I have utilized all available resources to obtain, update and review the patients current medications (includes all prescriptions, OTC, herbals, cannabis, and nutritional supplements).: Yes
[2024-08-23] MEDS: LIDOCAINE 5% PATCH 1 PATCH TRANSDERM ×2 (09:31→09:32)
[2024-08-23] MEDS: PANTOPRAZOLE SODIUM IV 40 MG VIAL IV PUSH ×2 (09:31→22:29)
[2024-08-23] MEDS: dexAMETHasone SOD PHOS INJ 4 MG/ML VIAL IV PUSH (09:31)
[2024-08-23] MEDS: FUROSEMIDE 40 MG TABLET PO (09:31)
[2024-08-23] MEDS: ENOXAPARIN 40 MG/0.4 ML SYRINGE SUB-Q (09:32)
[2024-08-23 10:08] LABS: Hematocrit 29.1 % (37.0-47.0); Hemoglobin 9.4 g/dL (12.0-15.0); Mean Corpuscular HGB Conc 32.3 g/dl (32-36); Mean Corpuscular Hemoglobin 33.6 pg (26-34); Mean Corpuscular Volume 103.9 fl (80-100); Mean Platelet Volume 8.5 fl (7.4-10.4); Platelet Count Result 383 k/mm3 (150-375); Red Cell Distribution Width 15.9 % (11.5-14.5); White Blood Count 5.6 K/mm3 (4.5-10.0)
--- NOTE | 2024-08-23 10:10 | PM.PNGS ---
Progress Note: A&P Assessment and Plan (1) Ileus, postoperative: Code(s): K91.89 - Other postprocedural complications and disorders of digestive system; K56.7 - Ileus, unspecified Status: Acute Assessment and Plan: Resolved. Bowels continue to move, but she does appear slightly distended today. She is still tolerating tube feeding at goal. Continue Reglan. Will give a dulcolax suppository today. We have asked speech therapy to re-evaluate her swallow to see if her diet can be advanced off the thickened liquids. If she is able to advance her diet, then we can reduce her tube feeding rate with a goal of coming off the tube feedings. She is still working with PT/OT and planning to discharge to a rehab facility eventually. CC working on placement options and possibly looking into [facility]. (2) Incarcerated left inguinal hernia: Code(s): K40.30 - Unilateral inguinal hernia, with obstruction, without gangrene, not specified as recurrent Status: Acute Assessment and Plan: Postop day 20 following open left incarcerated femoral repair. Healing well. Plan I have discussed the patient's case and plan of care with Dr. Jett. Subjective Subjective Date/Time Seen: 08/23/24 10:10 Interval history: 08/03/24 - Open incarcerated left femoral hernia repair without mesh 08/08/24 - Exploratory laparotomy, open gastrostomy tube placement Patient feels more bloated today. She had 2 bowel movements yesterday and is passing some flatus, but no BM yet today. She is tolerating tube feedings without high residuals. She is also complaining of fullness in her ears. She feels like she has fluid in her ears, but denies ear pain. No other complaints at this time. Exam Const: General: comfortable and no acute distress Orientation/consciousness: patient oriented x3 GI: Auscultation: normal bowel sounds Other: Abdomen mildly distended but soft. Incision dry and steri strips intact, no erythema. Mild tenderness near the gastrostomy tube in the LUQ that has a suture in place, there is slight redness at the skin directly around the tube that appears irritated, but no warmth or surrounding erythema, no induration. There is a small amount of thick yellow drainage around the gastrostomy tube on the dressing. Extrem: General: no calf tenderness and edema (bilateral 2+ pitting edema of feet, equal bilaterally) Objective Data Vital Signs Vital Signs: Vital Signs - 24 hr 08/22/24 13:58 08/22/24 14:05 08/22/24 16:00 Temperature 97.6 F Pulse Rate 94 95 96 Respiratory Rate 20 20 16 Blood Pressure 116/58 L Pulse Oximetry 99 Oxygen Delivery 08/22/24 20:00 08/22/24 20:54 08/22/24 20:59 Temperature Pulse Rate 86 Respiratory Rate 18 Blood Pressure Pulse Oximetry 95 Oxygen Delivery Room Air Room Air 08/22/24 20:59 08/22/24 21:37 08/23/24 02:39 Temperature 97.6 F Pulse Rate 82 94 80 Respiratory Rate 18 14 15 Blood Pressure 116/51 L Pulse Oximetry 99 Oxygen Delivery 08/23/24 02:45 08/23/24 05:12 Temperature 98.2 F Pulse Rate 69 88 Respiratory Rate 15 16 Blood Pressure 108/43 L Pulse Oximetry 99 Oxygen Delivery Intake/Output Intake/Output: Intake & Output 08/20/24 08/21/24 08/22/24 08/23/24 23:59 23:59 23:59 23:59 Intake Total 971 1560 2055 1440 Output Total 1450 Balance -479 1560 5 1440 Meds/Results Medications: Active Medications Generic Name Dose Route Start Last Admin Trade Name Freq PRN Reason Stop Dose Admin Acetaminophen 650 mg 08/18/24 13:39 08/22/24 10:11 Acetaminophen 325 Mg Tablet FEED TUBE 650 mg Q4H PRN Administration Mild Pain (1-3) or Fever Hydrocodone Bitart/Acetaminophen 1 tab 08/18/24 13:39 08/22/24 18:42 Hydrocodone/Acetaminophen (*Crx) 5-325 Mg Tablet FEED TUBE 1 tab Q4H PRN Administration Pain Rated 4-6 Albuterol/Ipratropium 3 ml 08/15/24 14:00 08/23/24 02:39 Ipratropium 0.5 Mg/Albuterol Sulfate 2.5 Mg Ampul.Neb 3 Ml INHALATION 3 ml Q6HRT MORGAN Administration Alteplase, Recombinant 2 mg 08/21/24 20:01 08/21/24 20:22 Alteplase 2 Mg Vial (Cathflo) IV PUSH 2 mg ONCE PRN Administration Line Occlusion Bisacodyl 10 mg 08/18/24 14:02 Bisacodyl 10 Mg Suppository RECTAL QAM PRN Constipation Dexamethasone Sodium Phosphate 4 mg 08/18/24 21:00 08/23/24 09:31 Dexamethasone Sod Phos Inj 4 Mg/Ml Vial IV PUSH 4 mg Q12HR MORGAN Administration Dextrose 12.5 gm 08/09/24 07:57 Dextrose 50% 25 Gm/50 Ml Syringe IV PUSH PRN PRN Hypoglycemia Protocol Enoxaparin Sodium 40 mg 08/05/24 09:00 08/23/24 09:32 Enoxaparin 40 Mg/0.4 Ml Syringe SUB-Q 40 mg DAILY MORGAN Administration Furosemide 40 mg 08/16/24 09:00 08/23/24 09:31 Furosemide 40 Mg Tablet PO 40 mg DAILY MORGAN Administration Glucagon 1 mg 08/09/24 07:57 Glucagon For Inj 1 Mg Vial IM PRN PRN Hypoglycemia Protocol Glucose 15 gm 08/09/24 07:57 Glucose Oral Gel 15 Gm Of Glucse In 37.5 Gm Tube PO PRN PRN Hypoglycemia Protocol Hydromorphone HCl 0.5 mg 08/09/24 11:55 08/20/24 22:45 Hydromorphone Hcl Inj (*Crx) 1 Mg/Ml Syr IV PUSH 0.5 mg Q2H PRN Administration Pain Rated 7-10 Dextrose 1,000 mls @ 100 mls/hr 08/09/24 07:57 Dextrose 5% 1,000 Ml IVPB PRN PRN Hypoglycemia Protocol Insulin Aspart 2 - 5 units 08/09/24 12:00 08/23/24 06:13 Insulin Aspart (*Bkc) 100 Units/Ml SUB-Q Not Given Q6HR MORGAN Protocol Lidocaine 1 patch 08/04/24 10:25 08/23/24 09:31 Lidocaine 5% Patch TRANSDERM 1 patch DAILY MORGAN Administration Lidocaine 1 patch 08/15/24 09:00 08/23/24 09:32 Lidocaine 5% Patch TRANSDERM 1 patch DAILY MORGAN Administration Metoclopramide HCl 5 mg 08/13/24 18:00 08/23/24 06:06 Metoclopramide Hcl Inj 10 Mg/2 Ml Vial IV PUSH 5 mg Q6HR MORGAN Administration Naloxone HCl 0.1 mg 08/08/24 05:45 Naloxone Hcl 0.4 Mg/Ml Vial IV PUSH Q2M PRN Opiate Reversal Ondansetron HCl 4 mg 08/03/24 15:38 08/15/24 20:54 Ondansetron Inj 4 Mg/2 Ml Vial IV PUSH 4 mg Q4H PRN Administration Nausea Pantoprazole Sodium 40 mg 08/12/24 21:00 08/23/24 09:31 Pantoprazole Sodium Iv 40 Mg Vial IV PUSH 40 mg Q12HR MORGAN Administration Phenytoin 100 mg 08/22/24 13:45 08/23/24 09:31 Phenytoin Susp 100 Mg/4 Ml Udc PO 100 mg DAILY MORGAN Administration Phenytoin 150 mg 08/22/24 21:00 08/22/24 20:31 Phenytoin Susp 100 Mg/4 Ml Udc PO 150 mg HS MORGAN Administration Quetiapine Fumarate 25 mg 08/20/24 21:00 08/22/24 20:35 Quetiapine Fumarate 25 Mg Tablet PO 25 mg HS MORGAN Administration Sodium Chloride 20 ml 08/06/24 23:57 08/07/24 06:05 Central Line Flush IV PUSH 20 ml PRN PRN Administration after blood draws Sodium Chloride 10 ml 08/06/24 23:57 Central Line Flush IV PUSH PRN PRN with TPN bag changes Sodium Chloride 10 ml 08/07/24 06:00 08/23/24 06:07 Central Line Flush IV PUSH 10 ml Q8HR MORGAN Administration Sodium Chloride 20 ml 08/22/24 05:25 08/22/24 05:39 Central Line Flush IV PUSH 20 ml PRN PRN Administration after blood draws Sodium Chloride 10 ml 08/22/24 05:25 Central Line Flush IV PUSH PRN PRN with TPN bag changes Sodium Chloride 10 ml 08/22/24 06:00 08/23/24 06:07 Central Line Flush IV PUSH 10 ml Q8HR MORGAN Administration Radiology Results: ITS Impressions Abdomen/Pelvis CT 08/08/24 06:07 Impression: Findings highly suspicious for extensive bowel ischemia, extensive small bowel and gastric pneumatosis and extensive portal venous gas. Extensive dilatation of small bowel loops and stomach with decompression of large bowel. Transition point not well delineated, but findings are highly suspicious for distal small bowel obstruction. NG tube tip at the GE junction. Further advancement of NG tube into the stomach is required for adequate placement. Small bilateral pleural effusions. Head CT 08/10/24 11:18 IMPRESSION: 1. Normal aging brain. Upper GI Series 08/10/24 13:27 IMPRESSION: Findings within the distal esophagus/proximal stomach for which prior fundoplication is suspected. Esophageal dysmotility and significant esophageal reflux is also detected. Chest X-Ray 08/15/24 10:10 IMPRESSION: Minimal opacification the right lung base suggestive of atelectasis versus pneumonia. Modified Barium Swallow 08/19/24 10:36 IMPRESSION: Oropharyngeal dysphagia with laryngeal penetration and aspiration. Please correlate with speech pathologist findings and specific feeding recommendations. Abdomen X-Ray 08/21/24 16:13 IMPRESSION: Significant gaseous distention of the colon. Contrast opacification of the rectum which is markedly distended. Percutaneous gastrostomy to the left of midline. Labs Labs: Laboratory Results - last 24 hr 08/22/24 08/22/24 08/22/24 11:57 18:41 23:41 POC Capillary Glucose 131 H 114 H 137 H 08/23/24 06:28 POC Capillary Glucose 116 H
[2024-08-23 10:21] LABS: Alanine Aminotransferase 42 U/L (6-35); Albumin Level 3.4 g/dL (3.5-5.1); Alkaline Phosphatase 92 U/L (38-126); Anion Gap 7 mmol/L (4-12); Aspartate Amino Transferase 38 U/L (14-36); Bilirubin,Total 0.3 mg/dL (0.2-1.3); Blood Urea Nitrogen 21 mg/dL (7-17); Calcium 8.6 mg/dL (8.4-10.2); Carbon Dioxide 30 mmol/L (22-30); Chloride 99 mmol/L (98-107); Estimated Glomerular Filt Rate > 60; Glucose 85 mg/dL (65-110); Potassium 4.1 mmol/L (3.4-5.0); Sodium 136 mmol/L (137-145)
[2024-08-23 12:21] LABS: Glucose Point of Care 126 mg/dl (65-105)
[2024-08-23] MEDS: HYDROcodone/acetaminophen (*CRX) 5-325 MG TABLET 1 TAB FEED TUBE (13:25)
--- NOTE | 2024-08-23 14:01 | PCNFU ---
Nutrition Follow-Up Complete: Altered GI function as related to SBO/Ileus as evidenced by TPN. Goal: Meet estimated nutritional needs. Patient will continue current goal. Pt current nutrition is Full liquids/Moderately Thick, Level 2 with tube feedings of Jevity 1.5 at 40 ml/hr. Last recorded weight is 50 kg, fairly stable Bowel Motility:+BM reported 08/22 Labs Reviewed: Cr 0.44, BUN 21, Na 136 Meds Noted:Reglan, Protonix, Zosyn, Lovenox Skin: WNL Additional Notes: Patient remains on PEG tube feedings of Jevity 1.5 at 40 ml/hr. tolerating per nursing. Total nutrition from tube feedin kcal/56 gm protein/670 ml water with flush of 30 ml q 4 hours. Oral Intake is slightly improving-eating some of the nutritional ice cream and drinking ensure about 120 ml today. Speech therapy plans to see patient later today. Patient is not liking the thickened liquids. Will monitor weight, labs, skin, diet orders, meds every 3 days.
--- NOTE | 2024-08-23 14:11 | PCPTNOTE ---
Attempted reevaluation 1410, patient out of room for procedure. Will follow.
--- NOTE | 2024-08-23 15:23 | PCSTNOTE ---
Please refer to the Modified Barium Swallow Evaluation in the EMR. Pt was seen for a repeat Modified Barium Swallow evaluation. Pt is currently on a pureed diet with level 3 moderately thick liquids. The previous MBS was 4 days ago.? Pt received dysphagia therapy 3 of the 4 days. The pts family has been taught dysphagia HEP and has also been working with the pt. The patient was seated for a lateral view and presented with 5cc of thin liquid barium via spoon, pudding consistency barium via a spoon, moderately thick liquids via a spoon and mildly thick liquids via a spoon and small controlled straw sip.? The oral stages were within functional limits; During the 5-cc thin liquid trial, reduced laryngeal elevation and reduced laryngeal closure were exhibited as evidenced by laryngeal penetration and (silent) aspiration during the swallow. Chin tuck positioning (with the 5cc thin liquid) continued to penetrate the laryngeal vestibule during the swallow and was silently aspirated after.? During the pudding trial laryngeal penetration occurred during the swallow (which was not noted during previous MBS) but with the chin tuck no further instances occurred. Chin tuck positioning was utilized for both mildly and moderately thick liquids trials with no instances of laryngeal penetration or aspiration, but only small amounts were tested. Impression: moderate dysphagia; reduced laryngeal elevation and reduced laryngeal closure exhibited. Recommendations: level 4 puree and level 2 mildly thick liquids with chin tuck positioning for all trials. ST spoke with dietitian, pt's RN, and provider.? Due to pt's apprehension to eat it is felt that oral intake may be poor. Continue with PEG tube feedings as well. Dysphagia therapy is recommended. Thank you for this referral.
[2024-08-23] MEDS: BISACODYL 10 MG SUPPOSITORY RECTAL (17:48)
[2024-08-23 18:46] LABS: Glucose Point of Care 96 mg/dl (65-105)
[2024-08-23] MEDS: QUEtiapine FUMARATE 25 MG TABLET PO (22:29)
[2024-08-23 23:52] LABS: Glucose Point of Care 117 mg/dl (65-105)
[2024-08-24] MEDS: METOCLOPRAMIDE HCL INJ 10 MG/2 ML VIAL 5 MG IV PUSH ×2 (00:01→05:34)
[2024-08-24 04:51] VITALS: BP 102/52; PULSE 80; RESP 16; TEMP 36.4; O2SAT 93
[2024-08-24 05:27] LABS: Hemoglobin 8.4 g/dL (12.0-15.0); Mean Corpuscular HGB Conc 32.3 g/dl (32-36); Mean Corpuscular Hemoglobin 34.1 pg (26-34); Mean Corpuscular Volume 105.7 fl (80-100); Mean Platelet Volume 8.7 fl (7.4-10.4); Platelet Count Result 288 k/mm3 (150-375); Red Blood Count 2.46 M/mm3 (4.2-5.4); Red Cell Distribution Width 15.9 % (11.5-14.5); White Blood Count 3.2 K/mm3 (4.5-10.0)
[2024-08-24] MEDS: CENTRAL LINE FLUSH 20 ML IV PUSH (05:34)
[2024-08-24] MEDS: CENTRAL LINE FLUSH 10 ML IV PUSH ×3 (05:34→20:57)
[2024-08-24 05:40] LABS: Alanine Aminotransferase 35 U/L (6-35); Albumin Level 2.8 g/dL (3.5-5.1); Alkaline Phosphatase 80 U/L (38-126); Anion Gap 8 mmol/L (4-12); Aspartate Amino Transferase 32 U/L (14-36); Bilirubin,Total 0.2 mg/dL (0.2-1.3); Blood Urea Nitrogen 21 mg/dL (7-17); Calcium 8.2 mg/dL (8.4-10.2); Carbon Dioxide 29 mmol/L (22-30); Chloride 98 mmol/L (98-107); Estimated Glomerular Filt Rate > 60; Glucose 92 mg/dL (65-110); Potassium 3.6 mmol/L (3.4-5.0); Sodium 135 mmol/L (137-145)
[2024-08-24 05:44] LABS: Glucose Point of Care 88 mg/dl (65-105)
--- NOTE | 2024-08-24 07:42 | PM.IMPN ---
Progress Note: A&P Assessment and Plan (1) Small bowel obstruction: Code(s): K56.609 - Unspecified intestinal obstruction, unspecified as to partial versus complete obstruction Status: Acute Assessment and Plan: Patient has a prolonged hospitalization from 08/03-08/23 Events that happened during the hospitalization includes: 08/03 :Open incarcerated left femoral hernia repair without mesh 08/08 :Exploratory laparotomy, gastrostomy tube placement S/P EGD showed intact gastrostomy tube and gastritis 08/19:Bedside replacement of dislodged gastrostomy tube with Khanna catheter through existing tract. Status post 08/03 Open incarcerated left femoral hernia repair without mesh 08/08 Exploratory laparotomy, gastrostomy tube placement S/p EGD showed intact gastrostomy tube and gastritis 08/19:Bedside replacement of dislodged gastrostomy tube with Khanna catheter through existing tract. Tube feeding now at goal, s/p TPN advance diet per speech recs continue advancing diet as tolerated plan is to monitor this and re-eval on Thursday for discharge planning GI and GEN surgery following (2) Ileus, postoperative: Code(s): K91.89 - Other postprocedural complications and disorders of digestive system; K56.7 - Ileus, unspecified Status: Acute Assessment and Plan: Resolving Tube feeds at goal monitor (3) Incarcerated left inguinal hernia: Code(s): K40.30 - Unilateral inguinal hernia, with obstruction, without gangrene, not specified as recurrent Status: Acute Assessment and Plan: See above (4) EULALIO (acute kidney injury): Code(s): N17.9 - Acute kidney failure, unspecified Status: Acute Assessment and Plan: resolved (5) Sepsis: Code(s): A41.9 - Sepsis, unspecified organism Status: Acute Assessment and Plan: Completed Zosyn. UA was unremarkable 08/08: blood cultures are negative so far (6) Seizures: Code(s): R56.9 - Unspecified convulsions Status: Chronic Assessment and Plan: Dilantin level is 29, will hold phenytoin and repeat in am. Continue the home dose of phenytoin 150 mg p.o. q.am and 150 mg p.o. q.h.s. (7) Electrolyte abnormality: Code(s): E87.8 - Other disorders of electrolyte and fluid balance, not elsewhere classified Status: Acute Assessment and Plan: Replace potassium (8) Pulmonary edema: Code(s): J81.1 - Chronic pulmonary edema Status: Acute Assessment and Plan: Chest x-ray shows pulmonary edema. Elevated BNP Echo reviewed lasix x1 today for SOB and wheezy lungs (9) Leukocytosis: Code(s): D72.829 - Elevated white blood cell count, unspecified Status: Acute Assessment and Plan: Resolved Status post iv zosyn and iv vancomycin added for possible aspiration pneumonia watch cultures Plan DVT prophylaxis on Sq lovenox Discharge planning from Thursday, continue Tube feeding and oral diet advance this Subjective Date/time seen: 08/24/24 07:42 Interval history: Interval Hx: Patient has a prolonged hospitalization from 08/03-08/22 Events that happened during the hospitalization includes: 08/03 :Open incarcerated left femoral hernia repair without mesh 08/08 :Exploratory laparotomy, gastrostomy tube placement S/P EGD showed intact gastrostomy tube and gastritis 08/19:Bedside replacement of dislodged gastrostomy tube with Khanna catheter through existing tract. 08/23: Pt is currently doing well. Patient is tolerating tube feed. Once patient takes oral feeding will decrease the tube feeding. Discussed with surgery about the Khanna tube which is used as PEG tube. As per surgery possibly will take the Khanna due out of the stoma before discharge when patient was able to increase oral intake.Discussed with speech therapy recommend level for puree and level 2 mildly thick liquids with chin tuck. 08/24: Denies any complaints. Update her daughter Joann. Answered all her questions. Review of Systems Review of Systems: SOB and wheezy lungs today All systems reviewed & are unremarkable except as noted in HPI and below (HPI) Exam Narrative: General: Frail elderly lady with NG tube in situ and tube feeds Lungs/Chest: BL wheezy lungs Cardiac: RRR. Normal S1 S2. No murmurs Circulation: Palpable pedal pulses, feet are warm Abdomen: Hypoactive bowel sound. Mild tenderness to palpation, gastrostomy tube in place, incision under dressing Extremities: No clubbing or cyanosis, bilateral edema present : Khanna in place Neurologic: Follows commands. Moves all 4 extremities PERRL AO x3 Skin: No Rash Const: General: comfortable and no acute distress Other: The patient is recumbent in a stretcher in the PACU. , female, elderly, modestly ill-appearing. +fatigue. HENMT: Face/Nose/Sinus: Normal nares present Mouth: Yes dry mucous membranes Other: NG in place. Eyes: General: appearance normal, both eyes and all related structures Sclera: sclerae normal Pupils: Equal, round and reactive pupils present EOM: EOMs intact bilaterally Resp: Effort & Inspection: normal respiratory effort Auscultation: clear to auscultation bilaterally Cardio: Rate: regular rate Rhythm: regular rhythm Other: S1-S2 present without murmur, rub, ectopy GI: Other: Abdomen firm, distended. bowel sounds present, Drain in place, serosanguineous output. Skin: General skin exam: normal color and no rashes or lesions noted Wounds: no wounds Neuro: Cranial nerves: Yes Equal, round and reactive pupils present Speech: normal speech Motor exam (neuro): 5/5 motor strength present throughout Sensory Exam: normal sensation Other: A&O x4, mildly somnolent. Extrem: General: normal to inspection Psych: Mental Status: mental status grossly normal Affect: normal affect Other: Good insight and judgment, pleasant Objective Data Vital Signs Vital Signs: Vital Signs - 24 hr 08/23/24 08:00 08/23/24 09:30 08/23/24 13:53 Temperature 98.6 F Pulse Rate 96 78 Respiratory Rate 18 15 Blood Pressure 107/55 L Pulse Oximetry 98 Oxygen Delivery Room Air 08/23/24 15:15 08/23/24 16:00 08/23/24 19:40 Temperature 98.2 F Pulse Rate 96 Respiratory Rate 19 Blood Pressure 110/58 L Pulse Oximetry 98 Oxygen Delivery Room Air Room Air 08/23/24 20:46 08/23/24 21:00 08/23/24 21:05 Temperature 97.8 F Pulse Rate 91 91 92 Respiratory Rate 17 16 Blood Pressure 111/54 L Pulse Oximetry 100 99 Oxygen Delivery Room Air 08/23/24 21:14 08/24/24 04:51 Temperature 97.5 F L Pulse Rate 85 80 Respiratory Rate 16 16 Blood Pressure 102/52 L Pulse Oximetry 93 Oxygen Delivery Intake/Output Intake/Output: Intake & Output 08/21/24 08/22/24 08/23/24 08/24/24 23:59 23:59 23:59 23:59 Intake Total 1560 2055 1800 1087 Output Total 400 Balance 1559 2054 1800 687 Meds/Results Medications: Active Medications Generic Name Dose Route Start Last Admin Trade Name Agata PRN Reason Stop Dose Admin Acetaminophen 650 mg 08/18/24 13:39 08/22/24 10:11 Acetaminophen 325 Mg Tablet FEED TUBE 650 mg Q4H PRN Administration Mild Pain (1-3) or Fever Hydrocodone Bitart/Acetaminophen 1 tab 08/18/24 13:39 08/23/24 13:25 Hydrocodone/Acetaminophen (*Crx) 5-325 Mg Tablet FEED TUBE 1 tab Q4H PRN Administration Pain Rated 4-6 Albuterol/Ipratropium 3 ml 08/15/24 14:00 08/24/24 04:18 Ipratropium 0.5 Mg/Albuterol Sulfate 2.5 Mg Ampul.Neb 3 Ml INHALATION Not Given Q6HRT MORGAN Alteplase, Recombinant 2 mg 08/21/24 20:01 08/21/24 20:22 Alteplase 2 Mg Vial (Cathflo) IV PUSH 2 mg ONCE PRN Administration Line Occlusion Bisacodyl 10 mg 08/18/24 14:02 08/23/24 17:48 Bisacodyl 10 Mg Suppository RECTAL 10 mg QAM PRN Administration Constipation Dextrose 12.5 gm 08/09/24 07:57 Dextrose 50% 25 Gm/50 Ml Syringe IV PUSH PRN PRN Hypoglycemia Protocol Enoxaparin Sodium 40 mg 08/05/24 09:00 08/23/24 09:32 Enoxaparin 40 Mg/0.4 Ml Syringe SUB-Q 40 mg DAILY MORGAN Administration Furosemide 40 mg 08/16/24 09:00 08/23/24 09:31 Furosemide 40 Mg Tablet PO 40 mg DAILY MORGAN Administration Glucagon 1 mg 08/09/24 07:57 Glucagon For Inj 1 Mg Vial IM PRN PRN Hypoglycemia Protocol Glucose 15 gm 08/09/24 07:57 Glucose Oral Gel 15 Gm Of Glucse In 37.5 Gm Tube PO PRN PRN Hypoglycemia Protocol Hydromorphone HCl 0.5 mg 08/09/24 11:55 08/20/24 22:45 Hydromorphone Hcl Inj (*Crx) 1 Mg/Ml Syr IV PUSH 0.5 mg Q2H PRN Administration Pain Rated 7-10 Dextrose 1,000 mls @ 100 mls/hr 08/09/24 07:57 Dextrose 5% 1,000 Ml IVPB PRN PRN Hypoglycemia Protocol Insulin Aspart 2 - 5 units 08/09/24 12:00 08/24/24 05:35 Insulin Aspart (*Bkc) 100 Units/Ml SUB-Q Not Given Q6HR MORGAN Protocol Lidocaine 1 patch 08/04/24 10:25 08/23/24 09:31 Lidocaine 5% Patch TRANSDERM 1 patch DAILY MORGAN Administration Lidocaine 1 patch 08/15/24 09:00 08/23/24 09:32 Lidocaine 5% Patch TRANSDERM 1 patch DAILY MORGAN Administration Metoclopramide HCl 5 mg 08/13/24 18:00 08/24/24 05:34 Metoclopramide Hcl Inj 10 Mg/2 Ml Vial IV PUSH 5 mg Q6HR MORGAN Administration Naloxone HCl 0.1 mg 08/08/24 05:45 Naloxone Hcl 0.4 Mg/Ml Vial IV PUSH Q2M PRN Opiate Reversal Ondansetron HCl 4 mg 08/03/24 15:38 08/15/24 20:54 Ondansetron Inj 4 Mg/2 Ml Vial IV PUSH 4 mg Q4H PRN Administration Nausea Pantoprazole Sodium 40 mg 08/12/24 21:00 08/23/24 22:29 Pantoprazole Sodium Iv 40 Mg Vial IV PUSH 40 mg Q12HR MORGAN Administration Phenytoin 100 mg 08/22/24 13:45 08/23/24 09:31 Phenytoin Susp 100 Mg/4 Ml Udc PO 100 mg DAILY MORGAN Administration Phenytoin 150 mg 08/22/24 21:00 08/23/24 22:29 Phenytoin Susp 100 Mg/4 Ml Udc PO 150 mg HS MORGAN Administration Quetiapine Fumarate 25 mg 08/20/24 21:00 08/23/24 22:29 Quetiapine Fumarate 25 Mg Tablet PO 25 mg HS MORGAN Administration Sodium Chloride 20 ml 08/06/24 23:57 08/24/24 05:34 Central Line Flush IV PUSH 20 ml PRN PRN Administration after blood draws Sodium Chloride 10 ml 08/06/24 23:57 Central Line Flush IV PUSH PRN PRN with TPN bag changes Sodium Chloride 10 ml 08/07/24 06:00 08/24/24 05:34 Central Line Flush IV PUSH 10 ml Q8HR MORGAN Administration Sodium Chloride 20 ml 08/22/24 05:25 08/22/24 05:39 Central Line Flush IV PUSH 20 ml PRN PRN Administration after blood draws Sodium Chloride 10 ml 08/22/24 05:25 Central Line Flush IV PUSH PRN PRN with TPN bag changes Radiology Results: ITS Impressions Abdomen/Pelvis CT 08/08/24 06:07 Impression: Findings highly suspicious for extensive bowel ischemia, extensive small bowel and gastric pneumatosis and extensive portal venous gas. Extensive dilatation of small bowel loops and stomach with decompression of large bowel. Transition point not well delineated, but findings are highly suspicious for distal small bowel obstruction. NG tube tip at the GE junction. Further advancement of NG tube into the stomach is required for adequate placement. Small bilateral pleural effusions. Head CT 08/10/24 11:18 IMPRESSION: 1. Normal aging brain. Upper GI Series 08/10/24 13:27 IMPRESSION: Findings within the distal esophagus/proximal stomach for which prior fundoplication is suspected. Esophageal dysmotility and significant esophageal reflux is also detected. Chest X-Ray 08/15/24 10:10 IMPRESSION: Minimal opacification the right lung base suggestive of atelectasis versus pneumonia. Abdomen X-Ray 08/21/24 16:13 IMPRESSION: Significant gaseous distention of the colon. Contrast opacification of the rectum which is markedly distended. Percutaneous gastrostomy to the left of midline. Modified Barium Swallow 08/23/24 14:43 IMPRESSION: 1. Aspiration of thin liquids. 2. Please refer to the speech therapy report for recommendations. Labs Labs: Laboratory Results - last 24 hr 08/23/24 08/23/24 08/23/24 09:52 12:15 18:43 WBC 5.6 RBC 2.80 L Hgb 9.4 L Hct 29.1 L MCV 103.9 H MCH 33.6 MCHC 32.3 RDW 15.9 H Plt Count 383 H MPV 8.5 Sodium 136 L Potassium 4.1 Chloride 99 Carbon Dioxide 30 Anion Gap 7 BUN 21 H Creatinine 0.44 L Estim Creat Clear Calc Not Reportable Estimated GFR > 60 Glucose 85 POC Capillary Glucose 126 H 96 Calcium 8.6 Total Bilirubin 0.3 AST 38 H ALT 42 H Alkaline Phosphatase 92 Total Protein 6.0 L Albumin 3.4 L 08/23/24 08/24/24 08/24/24 23:45 05:08 05:37 WBC 3.2 L RBC 2.46 L Hgb 8.4 L Hct 26.0 L MCV 105.7 H MCH 34.1 H MCHC 32.3 RDW 15.9 H Plt Count 288 MPV 8.7 Sodium 135 L Potassium 3.6 Chloride 98 Carbon Dioxide 29 Anion Gap 8 BUN 21 H Creatinine 0.41 L Estim Creat Clear Calc Not Reportable Estimated GFR > 60 Glucose 92 POC Capillary Glucose 117 H 88 Calcium 8.2 L Total Bilirubin 0.2 AST 32 ALT 35 Alkaline Phosphatase 80 Total Protein 5.0 L Albumin 2.8 L Quality VTE Prophylaxis VTE prophylaxis: mechanical ordered Hospitalist MIPS Advance Care Plan I have confirmed that the patient's Advanced Care Plan is present, code status is documented, or surrogate decision maker is listed in patient medical record.: Yes Medication Reconciliation I have utilized all available resources to obtain, update and review the patients current medications (includes all prescriptions, OTC, herbals, cannabis, and nutritional supplements).: Yes
[2024-08-24] MEDS: IPRATROPIUM 0.5 MG/ALBUTEROL SULFATE 2.5 MG AMPUL.NEB 3 ML INHALATION (07:44)
[2024-08-24 07:46] VITALS: PULSE 83; RESP 20; O2SAT 95
[2024-08-24 07:54] VITALS: PULSE 85; RESP 30
[2024-08-24] MEDS: ENOXAPARIN 40 MG/0.4 ML SYRINGE SUB-Q (09:00)
[2024-08-24] MEDS: FUROSEMIDE 40 MG TABLET PO (09:00)
[2024-08-24] MEDS: PANTOPRAZOLE SODIUM IV 40 MG VIAL IV PUSH (09:01)
[2024-08-24] MEDS: LIDOCAINE 5% PATCH 1 PATCH TRANSDERM ×2 (09:01)
--- NOTE | 2024-08-24 09:43 | P.PNGS_ITS ---
Progress Note: A&P Assessment and Plan (1) Ileus, postoperative: Code(s): K91.89 - Other postprocedural complications and disorders of digestive system; K56.7 - Ileus, unspecified Status: Acute Assessment and Plan: Resolved. She had multiple bowel movements yesterday and is feeling less bloated. Continues to tolerate tube feedings at goal. Barium swallow yesterday showed aspiration of thin liquids, ST recommended advancing to mildly thickened liquids and pureed level 4 diet with continued use of chin tuck positioning for eating. Will advance her to a pureed regular diet and change to mildly thickened liquids. She is eating well this morning for breakfast and I encouraged increasing oral intake. Will decrease her tube feeding to 20 cc/hr for now while trying to advance her diet. Goal will be to stop tube feedings if she is able to get enough nutrition by mouth. Could consider calorie count to determine if her nutrition is appropriate. I will also change her supplements to between meals in hopes that smaller more frequent meals will be more tolerable. Continue Reglan. Continue PT/OT with plans to discharge to a rehab facility eventually. We hope to remove her gastrostomy tube prior to discharge once she is tolerating oral intake. (2) Incarcerated left inguinal hernia: Code(s): K40.30 - Unilateral inguinal hernia, with obstruction, without gangrene, not specified as recurrent Status: Acute Assessment and Plan: S/p open left incarcerated femoral repair. Healing well. Plan I have discussed the patient's case and plan of care with Dr. Jett. Subjective Subjective Date/Time Seen: 08/24/24 09:43 Patient reports: tolerating liquids well, flatus, bowel movement and afebrile Interval history: 08/03/24 - Open incarcerated left femoral hernia repair without mesh 08/08/24 - Exploratory laparotomy, open gastrostomy tube placement Patient doing well today. Feels less bloated. Denies any nausea or regurgitation. Barium swallow yesterday showed aspiration of thin liquids, ST recommendations noted. She had more than 4-5 BMs yesterday. No other complaints at this time. She is attempting to eat more today. She ate all of her oatmeal, orange juice, and is also eating the thrive ice cream this morning for breakfast when I saw her. Exam Const: General: comfortable and no acute distress Orientation /consciousness: patient oriented x3 GI: Other: Abdomen a little less distended today and soft. Incision dry and steri strips intact, no erythema. Mild tenderness near the gastrostomy tube in the LUQ that has a suture in place, there is slight redness at the skin directly around the tube that appears irritated, but no warmth or surrounding erythema, no induration. There is scant thick yellow drainage around the gastrostomy tube on the dressing. Extrem: General: no calf tenderness and edema (bilateral 2+ pitting edema of feet, equal bilaterally) bilateral ( equal bilaterally, 1 to 2+ pitting) Objective Data Vital Signs Vital Signs: Vital Signs - 24 hr 08/23/24 13:53 08/23/24 15:15 08/23/24 16:00 Temperature 98.2 F Pulse Rate 78 96 Respiratory Rate 15 19 Blood Pressure 110/58 L Pulse Oximetry 98 Oxygen Delivery Room Air 08/23/24 19:40 08/23/24 20:46 08/23/24 21:00 Temperature 97.8 F Pulse Rate 91 91 Respiratory Rate 17 16 Blood Pressure 111/54 L Pulse Oximetry 100 Oxygen Delivery Room Air 08/23/24 21:05 08/23/24 21:14 08/24/24 04:51 Temperature 97.5 F L Pulse Rate 92 85 80 Respiratory Rate 16 16 Blood Pressure 102/52 L Pulse Oximetry 99 93 Oxygen Delivery Room Air 08/24/24 07:46 08/24/24 07:46 08/24/24 07:54 Temperature Pulse Rate 83 83 85 Respiratory Rate 20 30 H Blood Pressure Pulse Oximetry 95 Oxygen Delivery Room Air Intake/Output Intake/Output: Intake & Output 08/21/24 08/22/24 08/23/24 08/24/24 23:59 23:59 23:59 23:59 Intake Total 1560 5 1800 1087 Output Total 400 Balance 1560 2054 1800 687 Meds/Results Medications: Active Medications Generic Name Dose Route Start Last Admin Trade Name Freq PRN Reason Stop Dose Admin Acetaminophen 650 mg 08/18/24 13:39 08/22/24 10:11 Acetaminophen 325 Mg Tablet FEED TUBE 650 mg Q4H PRN Administration Mild Pain (1-3) or Fever Hydrocodone Bitart/Acetaminophen 1 tab 08/18/24 13:39 08/23/24 13:25 Hydrocodone/Acetaminophen (*Crx) 5-325 Mg Tablet FEED TUBE 1 tab Q4H PRN Administration Pain Rated 4-6 Albuterol/Ipratropium 3 ml 08/24/24 09:39 Ipratropium 0.5 Mg/Albuterol Sulfate 2.5 Mg Ampul.Neb 3 Ml INHALATION Q6HRT PRN Shortness Of Breath Alteplase, Recombinant 2 mg 08/21/24 20:01 08/21/24 20:22 Alteplase 2 Mg Vial (Cathflo) IV PUSH 2 mg ONCE PRN Administration Line Occlusion Bisacodyl 10 mg 08/18/24 14:02 08/23/24 17:48 Bisacodyl 10 Mg Suppository RECTAL 10 mg QAM PRN Administration Constipation Dextrose 12.5 gm 08/09/24 07:57 Dextrose 50% 25 Gm/50 Ml Syringe IV PUSH PRN PRN Hypoglycemia Protocol Enoxaparin Sodium 40 mg 08/05/24 09:00 08/24/24 09:00 Enoxaparin 40 Mg/0.4 Ml Syringe SUB-Q 40 mg DAILY MORGAN Administration Furosemide 40 mg 08/16/24 09:00 08/24/24 09:00 Furosemide 40 Mg Tablet PO 40 mg DAILY MORGAN Administration Glucagon 1 mg 08/09/24 07:57 Glucagon For Inj 1 Mg Vial IM PRN PRN Hypoglycemia Protocol Glucose 15 gm 08/09/24 07:57 Glucose Oral Gel 15 Gm Of Glucse In 37.5 Gm Tube PO PRN PRN Hypoglycemia Protocol Dextrose 1,000 mls @ 100 mls/hr 08/09/24 07:57 Dextrose 5% 1,000 Ml IVPB PRN PRN Hypoglycemia Protocol Insulin Aspart 2 - 5 units 08/09/24 12:00 08/24/24 05:35 Insulin Aspart (*Bkc) 100 Units/Ml SUB-Q Not Given Q6HR MORGAN Protocol Lidocaine 1 patch 08/04/24 10:25 08/24/24 09:01 Lidocaine 5% Patch TRANSDERM 1 patch DAILY MORGAN Administration Lidocaine 1 patch 08/15/24 09:00 08/24/24 09:01 Lidocaine 5% Patch TRANSDERM 1 patch DAILY MORGAN Administration Metoclopramide HCl 5 mg 08/13/24 18:00 08/24/24 05:34 Metoclopramide Hcl Inj 10 Mg/2 Ml Vial IV PUSH 5 mg Q6HR MORGAN Administration Naloxone HCl 0.1 mg 08/08/24 05:45 Naloxone Hcl 0.4 Mg/Ml Vial IV PUSH Q2M PRN Opiate Reversal Ondansetron HCl 4 mg 08/03/24 15:38 08/15/24 20:54 Ondansetron Inj 4 Mg/2 Ml Vial IV PUSH 4 mg Q4H PRN Administration Nausea Pantoprazole Sodium 40 mg 08/12/24 21:00 08/24/24 09:01 Pantoprazole Sodium Iv 40 Mg Vial IV PUSH 40 mg Q12HR MORGAN Administration Phenytoin 100 mg 08/22/24 13:45 08/24/24 09:01 Phenytoin Susp 100 Mg/4 Ml Udc PO 100 mg DAILY MORGAN Administration Phenytoin 150 mg 08/22/24 21:00 08/23/24 22:29 Phenytoin Susp 100 Mg/4 Ml Udc PO 150 mg HS MORGAN Administration Quetiapine Fumarate 25 mg 08/20/24 21:00 08/23/24 22:29 Quetiapine Fumarate 25 Mg Tablet PO 25 mg HS MORGAN Administration Sodium Chloride 20 ml 08/06/24 23:57 08/24/24 05:34 Central Line Flush IV PUSH 20 ml PRN PRN Administration after blood draws Sodium Chloride 10 ml 08/06/24 23:57 Central Line Flush IV PUSH PRN PRN with TPN bag changes Sodium Chloride 10 ml 08/07/24 06:00 08/24/24 05:34 Central Line Flush IV PUSH 10 ml Q8HR MORGAN Administration Sodium Chloride 20 ml 08/22/24 05:25 08/22/24 05:39 Central Line Flush IV PUSH 20 ml PRN PRN Administration after blood draws Sodium Chloride 10 ml 08/22/24 05:25 Central Line Flush IV PUSH PRN PRN with TPN bag changes Radiology Results: ITS Impressions Abdomen/Pelvis CT 08/08/24 06:07 Impression: Findings highly suspicious for extensive bowel ischemia, extensive small bowel and gastric pneumatosis and extensive portal venous gas. Extensive dilatation of small bowel loops and stomach with decompression of large bowel. Transition point not well delineated, but findings are highly suspicious for distal small bowel obstruction. NG tube tip at the GE junction. Further advancement of NG tube into the stomach is required for adequate placement. Small bilateral pleural effusions. Head CT 08/10/24 11:18 IMPRESSION: 1. Normal aging brain. Upper GI Series 08/10/24 13:27 IMPRESSION: Findings within the distal esophagus/proximal stomach for which prior fundoplication is suspected. Esophageal dysmotility and significant esophageal reflux is also detected. Chest X-Ray 08/15/24 10:10 IMPRESSION: Minimal opacification the right lung base suggestive of atelectasis versus pneumonia. Abdomen X-Ray 08/21/24 16:13 IMPRESSION: Significant gaseous distention of the colon. Contrast opacification of the rectum which is markedly distended. Percutaneous gastrostomy to the left of midline. Modified Barium Swallow 08/23/24 14:43 IMPRESSION: 1. Aspiration of thin liquids. 2. Please refer to the speech therapy report for recommendations. Labs Labs: Laboratory Results - last 24 hr 08/23/24 08/23/24 08/23/24 09:52 12:15 18:43 WBC 5.6 RBC 2.80 L Hgb 9.4 L Hct 29.1 L MCV 103.9 H MCH 33.6 MCHC 32.3 RDW 15.9 H Plt Count 383 H MPV 8.5 Sodium 136 L Potassium 4.1 Chloride 99 Carbon Dioxide 30 Anion Gap 7 BUN 21 H Creatinine 0.44 L Estim Creat Clear Calc Not Reportable Estimated GFR > 60 Glucose 85 POC Capillary Glucose 126 H 96 Calcium 8.6 Total Bilirubin 0.3 AST 38 H ALT 42 H Alkaline Phosphatase 92 Total Protein 6.0 L Albumin 3.4 L 08/23/24 08/24/24 08/24/24 23:45 05:08 05:37 WBC 3.2 L RBC 2.46 L Hgb 8.4 L Hct 26.0 L MCV 105.7 H MCH 34.1 H MCHC 32.3 RDW 15.9 H Plt Count 288 MPV 8.7 Sodium 135 L Potassium 3.6 Chloride 98 Carbon Dioxide 29 Anion Gap 8 BUN 21 H Creatinine 0.41 L Estim Creat Clear Calc Not Reportable Estimated GFR > 60 Glucose 92 POC Capillary Glucose 117 H 88 Calcium 8.2 L Total Bilirubin 0.2 AST 32 ALT 35 Alkaline Phosphatase 80 Total Protein 5.0 L Albumin 2.8 L
[2024-08-24 10:20] LABS: Phenytoin Dilantin 7 ug/mL (10-20)
[2024-08-24 12:14] LABS: Glucose Point of Care 99 mg/dl (65-105)
--- NOTE | 2024-08-24 14:07 | PCDIET ---
Physician consult for calorie count. Nursing is aware, will start at dinner and monitor for 3 days. Diet has been upgraded to Pureed, Level 4 with Moderately Thick liquids, Level 2. Following.
[2024-08-24 16:00] VITALS: BP 113/51; PULSE 89; RESP 16; TEMP 37; O2SAT 98
[2024-08-24] MEDS: METOCLOPRAMIDE HCL 10 MG TABLET PO ×2 (17:02→20:56)
[2024-08-24 18:00] LABS: Glucose Point of Care 89 mg/dl (65-105)
[2024-08-24 19:39] VITALS: BP 113/51; PULSE 86; RESP 17; TEMP 36.7; O2SAT 98
[2024-08-24] MEDS: QUEtiapine FUMARATE 25 MG TABLET PO (20:56)
[2024-08-24] MEDS: PANTOPRAZOLE 40 MG TABLET PO (20:56)
[2024-08-24 23:49] LABS: Glucose Point of Care 107 mg/dl (65-105)
[2024-08-25 04:32] VITALS: BP 112/54; PULSE 79; RESP 18; TEMP 36.9; O2SAT 97
[2024-08-25 05:12] LABS: Hematocrit 26.8 % (37.0-47.0); Hemoglobin 8.5 g/dL (12.0-15.0); Mean Corpuscular HGB Conc 31.7 g/dl (32-36); Mean Corpuscular Hemoglobin 33.2 pg (26-34); Mean Corpuscular Volume 104.7 fl (80-100); Mean Platelet Volume 8.5 fl (7.4-10.4); Platelet Count Result 262 k/mm3 (150-375); Red Blood Count 2.56 M/mm3 (4.2-5.4); Red Cell Distribution Width 15.7 % (11.5-14.5); White Blood Count 3.3 K/mm3 (4.5-10.0)
[2024-08-25 05:27] LABS: Alanine Aminotransferase 35 U/L (6-35); Albumin Level 2.8 g/dL (3.5-5.1); Alkaline Phosphatase 84 U/L (38-126); Anion Gap 6 mmol/L (4-12); Aspartate Amino Transferase 30 U/L (14-36); Bilirubin,Total 0.3 mg/dL (0.2-1.3); Blood Urea Nitrogen 17 mg/dL (7-17); Calcium 8.3 mg/dL (8.4-10.2); Carbon Dioxide 29 mmol/L (22-30); Chloride 99 mmol/L (98-107); Estimated Glomerular Filt Rate > 60; Glucose 93 mg/dL (65-110); Potassium 3.8 mmol/L (3.4-5.0); Sodium 134 mmol/L (137-145)
[2024-08-25] MEDS: CENTRAL LINE FLUSH 20 ML IV PUSH (05:42)
[2024-08-25] MEDS: CENTRAL LINE FLUSH 10 ML IV PUSH ×3 (05:43→20:43)
[2024-08-25] MEDS: ENOXAPARIN 40 MG/0.4 ML SYRINGE SUB-Q (08:44)
[2024-08-25] MEDS: FUROSEMIDE 40 MG TABLET PO (08:44)
[2024-08-25] MEDS: LIDOCAINE 5% PATCH 1 PATCH TRANSDERM ×2 (08:44)
[2024-08-25] MEDS: PANTOPRAZOLE 40 MG TABLET PO ×2 (08:44→20:40)
[2024-08-25] MEDS: METOCLOPRAMIDE HCL 10 MG TABLET PO ×3 (08:45→20:43)
--- NOTE | 2024-08-25 11:12 | PM.PNGS ---
Progress Note: A&P Assessment and Plan (1) Ileus, postoperative: Code(s): K91.89 - Other postprocedural complications and disorders of digestive system; K56.7 - Ileus, unspecified Status: Acute Assessment and Plan: Resolved. Bowels are moving and her oral intake is improving. Will continue the calorie count today as it was only started at dinner. Will stop the tube feeding and reassess her intake tomorrow. Continue supplements between meals. IV medications transitioned to oral. Continue Reglan. Will plan to remove her gastrostomy tube prior to discharge once she has adequate oral intake for at least 1-2 days. Plan is to discharge to [facility] once gastrostomy tube is removed if she remains medically stable. (2) Incarcerated left inguinal hernia: Code(s): K40.30 - Unilateral inguinal hernia, with obstruction, without gangrene, not specified as recurrent Status: Acute Assessment and Plan: S/p open left incarcerated femoral repair. Healing well. Plan I have discussed the patient's case and plan of care with Dr. Jett. Subjective Subjective Date/Time Seen: 08/25/24 11:12 Patient reports: no new complaints, tolerating a regular diet, flatus, bowel movement and afebrile Interval history: 08/03/24 - Open incarcerated left femoral hernia repair without mesh 08/08/24 - Exploratory laparotomy, open gastrostomy tube placement Patient has had no acute changes overnight. Still has soreness around the G-tube but it is unchanged. No nausea, vomiting, or dysphagia. She was tolerating her diet yesterday and ate over 70% of her meal for lunch. She then had the calorie count start at dinner. She feels like her bloating has improved. She had multiple BMs yesterday and has had 2 today. Exam Const: General: comfortable and no acute distress GI: Other: Abdomen less distended and soft. Incision dry and steri strips intact, no erythema. Mild tenderness near the gastrostomy tube in the LUQ that has a suture in place, there is slight redness at the skin directly around the tube that appears irritated, but no warmth or surrounding erythema, no induration. There is scant thick yellow drainage around the gastrostomy tube on the dressing. : Other: Left groin incision dry and glue intact with no erythema or drainage. Repair intact. Objective Data Vital Signs Vital Signs: Vital Signs - 24 hr 08/24/24 16:00 08/24/24 19:39 08/25/24 04:32 Temperature 98.6 F 98.1 F 98.5 F Pulse Rate 89 86 79 Respiratory Rate 16 17 18 Blood Pressure 113/51 L 113/51 L 112/54 L Pulse Oximetry 98 98 97 Oxygen Delivery 08/25/24 08:45 Temperature Pulse Rate Respiratory Rate Blood Pressure Pulse Oximetry Oxygen Delivery Room Air Intake/Output Intake/Output: Intake & Output 08/22/24 08/23/24 08/24/24 08/25/24 23:59 23:59 23:59 23:59 Intake Total 2054 1800 1997 460 Output Total 500 500 Balance 2054 1800 1497 -40 Meds/Results Medications: Active Medications Generic Name Dose Route Start Last Admin Trade Name Freq PRN Reason Stop Dose Admin Acetaminophen 650 mg 08/18/24 13:39 08/22/24 10:11 Acetaminophen 325 Mg Tablet FEED TUBE 650 mg Q4H PRN Administration Mild Pain (1-3) or Fever Hydrocodone Bitart/Acetaminophen 1 tab 08/18/24 13:39 08/23/24 13:25 Hydrocodone/Acetaminophen (*Crx) 5-325 Mg Tablet FEED TUBE 1 tab Q4H PRN Administration Pain Rated 4-6 Albuterol/Ipratropium 3 ml 08/24/24 09:39 Ipratropium 0.5 Mg/Albuterol Sulfate 2.5 Mg Ampul.Neb 3 Ml INHALATION Q6HRT PRN Shortness Of Breath Alteplase, Recombinant 2 mg 08/21/24 20:01 08/21/24 20:22 Alteplase 2 Mg Vial (Cathflo) IV PUSH 2 mg ONCE PRN Administration Line Occlusion Bisacodyl 10 mg 08/18/24 14:02 08/23/24 17:48 Bisacodyl 10 Mg Suppository RECTAL 10 mg QAM PRN Administration Constipation Dextrose 12.5 gm 08/09/24 07:57 Dextrose 50% 25 Gm/50 Ml Syringe IV PUSH PRN PRN Hypoglycemia Protocol Enoxaparin Sodium 40 mg 08/05/24 09:00 08/25/24 08:44 Enoxaparin 40 Mg/0.4 Ml Syringe SUB-Q 40 mg DAILY MORGAN Administration Furosemide 40 mg 08/16/24 09:00 08/25/24 08:44 Furosemide 40 Mg Tablet PO 40 mg DAILY MORGAN Administration Glucagon 1 mg 08/09/24 07:57 Glucagon For Inj 1 Mg Vial IM PRN PRN Hypoglycemia Protocol Glucose 15 gm 08/09/24 07:57 Glucose Oral Gel 15 Gm Of Glucse In 37.5 Gm Tube PO PRN PRN Hypoglycemia Protocol Dextrose 1,000 mls @ 100 mls/hr 08/09/24 07:57 Dextrose 5% 1,000 Ml IVPB PRN PRN Hypoglycemia Protocol Lidocaine 1 patch 08/04/24 10:25 08/25/24 08:44 Lidocaine 5% Patch TRANSDERM 1 patch DAILY MORGAN Administration Lidocaine 1 patch 08/15/24 09:00 08/25/24 08:44 Lidocaine 5% Patch TRANSDERM 1 patch DAILY MORGAN Administration Metoclopramide HCl 10 mg 08/24/24 11:30 08/25/24 08:45 Metoclopramide Hcl 10 Mg Tablet PO 10 mg ACHS MORGAN Administration Naloxone HCl 0.1 mg 08/08/24 05:45 Naloxone Hcl 0.4 Mg/Ml Vial IV PUSH Q2M PRN Opiate Reversal Ondansetron HCl 4 mg 08/03/24 15:38 08/15/24 20:54 Ondansetron Inj 4 Mg/2 Ml Vial IV PUSH 4 mg Q4H PRN Administration Nausea Pantoprazole Sodium 40 mg 08/24/24 21:00 08/25/24 08:44 Pantoprazole 40 Mg Tablet PO 40 mg Q12HR MORGAN Administration Phenytoin 100 mg 08/22/24 13:45 08/25/24 08:44 Phenytoin Susp 100 Mg/4 Ml Udc PO 100 mg DAILY MORGAN Administration Phenytoin 150 mg 08/22/24 21:00 08/24/24 20:53 Phenytoin Susp 100 Mg/4 Ml Udc PO 150 mg HS MORGAN Administration Quetiapine Fumarate 25 mg 08/20/24 21:00 08/24/24 20:56 Quetiapine Fumarate 25 Mg Tablet PO 25 mg HS MORGAN Administration Sodium Chloride 20 ml 08/06/24 23:57 08/25/24 05:42 Central Line Flush IV PUSH 20 ml PRN PRN Administration after blood draws Sodium Chloride 10 ml 08/06/24 23:57 Central Line Flush IV PUSH PRN PRN with TPN bag changes Sodium Chloride 10 ml 08/07/24 06:00 08/25/24 05:43 Central Line Flush IV PUSH 10 ml Q8HR MORGAN Administration Sodium Chloride 20 ml 08/22/24 05:25 08/22/24 05:39 Central Line Flush IV PUSH 20 ml PRN PRN Administration after blood draws Sodium Chloride 10 ml 08/22/24 05:25 Central Line Flush IV PUSH PRN PRN with TPN bag changes Radiology Results: ITS Impressions Abdomen/Pelvis CT 08/08/24 06:07 Impression: Findings highly suspicious for extensive bowel ischemia, extensive small bowel and gastric pneumatosis and extensive portal venous gas. Extensive dilatation of small bowel loops and stomach with decompression of large bowel. Transition point not well delineated, but findings are highly suspicious for distal small bowel obstruction. NG tube tip at the GE junction. Further advancement of NG tube into the stomach is required for adequate placement. Small bilateral pleural effusions. Head CT 08/10/24 11:18 IMPRESSION: 1. Normal aging brain. Upper GI Series 08/10/24 13:27 IMPRESSION: Findings within the distal esophagus/proximal stomach for which prior fundoplication is suspected. Esophageal dysmotility and significant esophageal reflux is also detected. Chest X-Ray 08/15/24 10:10 IMPRESSION: Minimal opacification the right lung base suggestive of atelectasis versus pneumonia. Abdomen X-Ray 08/21/24 16:13 IMPRESSION: Significant gaseous distention of the colon. Contrast opacification of the rectum which is markedly distended. Percutaneous gastrostomy to the left of midline. Modified Barium Swallow 08/23/24 14:43 IMPRESSION: 1. Aspiration of thin liquids. 2. Please refer to the speech therapy report for recommendations. Labs Labs: Laboratory Results - last 24 hr 08/24/24 08/24/24 08/24/24 12:11 17:56 23:38 WBC RBC Hgb Hct MCV MCH MCHC RDW Plt Count MPV Sodium Potassium Chloride Carbon Dioxide Anion Gap BUN Creatinine Estim Creat Clear Calc Estimated GFR Glucose POC Capillary Glucose 99 89 107 H Calcium Total Bilirubin AST ALT Alkaline Phosphatase Total Protein Albumin 08/25/24 05:03 WBC 3.3 L RBC 2.56 L Hgb 8.5 L Hct 26.8 L MCV 104.7 H MCH 33.2 MCHC 31.7 L RDW 15.7 H Plt Count 262 MPV 8.5 Sodium 134 L Potassium 3.8 Chloride 99 Carbon Dioxide 29 Anion Gap 6 BUN 17 Creatinine 0.44 L Estim Creat Clear Calc Not Reportable Estimated GFR > 60 Glucose 93 POC Capillary Glucose Calcium 8.3 L Total Bilirubin 0.3 AST 30 ALT 35 Alkaline Phosphatase 84 Total Protein 5.0 L Albumin 2.8 L
--- NOTE | 2024-08-25 11:27 | PCDIET ---
Spoke with patient today regarding PO intake. She is improving, but I would like a full days worth of meals to assess. MIKE Vora and I spoke regarding tube feedings and calorie count. Going to stop tube feedings today and see how patient does with po. Following.
[2024-08-25 14:00] VITALS: BP 127/56; PULSE 80; RESP 19; TEMP 36.6; O2SAT 100
--- NOTE | 2024-08-25 15:14 | P.PNIM_ITS ---
Progress Note: A&P Assessment and Plan (1) Small bowel obstruction: Code(s): K56.609 - Unspecified intestinal obstruction, unspecified as to partial versus complete obstruction Status: Acute Assessment and Plan: Patient has a prolonged hospitalization from 08/03-08/23 Events that happened during the hospitalization includes: 08/03 :Open incarcerated left femoral hernia repair without mesh 08/08 :Exploratory laparotomy, gastrostomy tube placement S/P EGD showed intact gastrostomy tube and gastritis 08/19:Bedside replacement of dislodged gastrostomy tube with Khanna catheter through existing tract. Status post 08/03 Open incarcerated left femoral hernia repair without mesh 08/08 Exploratory laparotomy, gastrostomy tube placement S/p EGD showed intact gastrostomy tube and gastritis 08/19:Bedside replacement of dislodged gastrostomy tube with Khanna catheter through existing tract. Tube feeding now at goal, s/p TPN advance diet per speech recs continue advancing diet as tolerated plan is to monitor this and re-eval on Thursday for discharge planning GI and GEN surgery following (2) Ileus, postoperative: Code(s): K91.89 - Other postprocedural complications and disorders of digestive system; K56.7 - Ileus, unspecified Status: Acute Assessment and Plan: Resolving Tube feeds at goal monitor (3) Incarcerated left inguinal hernia: Code(s): K40.30 - Unilateral inguinal hernia, with obstruction, without gangrene, not specified as recurrent Status: Acute Assessment and Plan: See above (4) EULALIO (acute kidney injury): Code(s): N17.9 - Acute kidney failure, unspecified Status: Acute Assessment and Plan: resolved (5) Sepsis: Code(s): A41.9 - Sepsis, unspecified organism Status: Acute Assessment and Plan: Completed Zosyn. UA was unremarkable 08/08: blood cultures are negative so far (6) Seizures: Code(s): R56.9 - Unspecified convulsions Status: Chronic Assessment and Plan: Dilantin level is 29, will hold phenytoin and repeat in am. Continue the home dose of phenytoin 150 mg p.o. q.am and 150 mg p.o. q.h.s. (7) Electrolyte abnormality: Code(s): E87.8 - Other disorders of electrolyte and fluid balance, not elsewhere classified Status: Acute Assessment and Plan: Replace potassium (8) Pulmonary edema: Code(s): J81.1 - Chronic pulmonary edema Status: Acute Assessment and Plan: Chest x-ray shows pulmonary edema. Elevated BNP Echo reviewed lasix x1 today for SOB and wheezy lungs (9) Leukocytosis: Code(s): D72.829 - Elevated white blood cell count, unspecified Status: Acute Assessment and Plan: Resolved Status post iv zosyn and iv vancomycin added for possible aspiration pneumonia watch cultures Plan DVT prophylaxis on Sq lovenox Discharge planning from Thursday, continue Tube feeding and oral diet advance this Subjective Date/time seen: 08/25/24 15:14 Interval history: Patient is currently doing well. Will remove the G-tube in 2 days as per surgery recommendation. Patient is currently on pureed diet. Review of Systems Review of Systems: SOB and wheezy lungs today All systems reviewed & are unremarkable except as noted in HPI and below (HPI) Exam Narrative: General: Frail elderly lady with NG tube in situ and tube feeds Lungs/Chest: BL wheezy lungs Cardiac: RRR. Normal S1 S2. No murmurs Circulation: Palpable pedal pulses, feet are warm Abdomen: Hypoactive bowel sound. Mild tenderness to palpation, gastrostomy tube in place, incision under dressing Extremities: No clubbing or cyanosis, bilateral edema present : Khanna in place Neurologic: Follows commands. Moves all 4 extremities PERRL AO x3 Skin: No Rash Const: General: comfortable and no acute distress Other: The patient is recumbent in a stretcher in the PACU. , female, elderly, modestly ill-appearing. +fatigue. HENMT: Face/Nose/Sinus: Normal nares present Mouth: Yes dry mucous membranes Other: NG in place. Eyes: General: appearance normal, both eyes and all related structures Sclera: sclerae normal Pupils: Equal, round and reactive pupils present EOM: EOMs intact bilaterally Resp: Effort & Inspection: normal respiratory effort Auscultation: clear to auscultation bilaterally Cardio: Rate: regular rate Rhythm: regular rhythm Other: S1-S2 present without murmur, rub, ectopy GI: Other: Abdomen firm, distended. bowel sounds present, Drain in place, serosanguineous output. Skin: General skin exam: normal color and no rashes or lesions noted Wounds: no wounds Neuro: Cranial nerves: Yes Equal, round and reactive pupils present Speech: normal speech Motor exam (neuro): 5/5 motor strength present throughout Sensory Exam: normal sensation Other: A&O x4, mildly somnolent. Extrem: General: normal to inspection Psych: Mental Status: mental status grossly normal Affect: normal affect Other: Good insight and judgment, pleasant Objective Data Vital Signs Vital Signs: Vital Signs - 24 hr 08/24/24 16:00 08/24/24 19:39 08/25/24 04:32 Temperature 98.6 F 98.1 F 98.5 F Pulse Rate 89 86 79 Respiratory Rate 16 17 18 Blood Pressure 113/51 L 113/51 L 112/54 L Pulse Oximetry 98 98 97 Oxygen Delivery 08/25/24 08:45 08/25/24 13:14 Temperature Pulse Rate Respiratory Rate Blood Pressure Pulse Oximetry Oxygen Delivery Room Air Room Air Intake/Output Intake/Output: Intake & Output 08/22/24 08/23/24 08/24/24 08/25/24 23:59 23:59 23:59 23:59 Intake Total 2054 1800 1997 600 Output Total 500 500 Balance 2054 1800 1497 100 Meds/Results Medications: Active Medications Generic Name Dose Route Start Last Admin Trade Name Freq PRN Reason Stop Dose Admin Acetaminophen 650 mg 08/18/24 13:39 08/22/24 10:11 Acetaminophen 325 Mg Tablet FEED TUBE 650 mg Q4H PRN Administration Mild Pain (1-3) or Fever Hydrocodone Bitart/Acetaminophen 1 tab 08/18/24 13:39 08/23/24 13:25 Hydrocodone/Acetaminophen (*Crx) 5-325 Mg Tablet FEED TUBE 1 tab Q4H PRN Administration Pain Rated 4-6 Albuterol/Ipratropium 3 ml 08/24/24 09:39 Ipratropium 0.5 Mg/Albuterol Sulfate 2.5 Mg Ampul.Neb 3 Ml INHALATION Q6HRT PRN Shortness Of Breath Alteplase, Recombinant 2 mg 08/21/24 20:01 08/21/24 20:22 Alteplase 2 Mg Vial (Cathflo) IV PUSH 2 mg ONCE PRN Administration Line Occlusion Bisacodyl 10 mg 08/18/24 14:02 08/23/24 17:48 Bisacodyl 10 Mg Suppository RECTAL 10 mg QAM PRN Administration Constipation Dextrose 12.5 gm 08/09/24 07:57 Dextrose 50% 25 Gm/50 Ml Syringe IV PUSH PRN PRN Hypoglycemia Protocol Enoxaparin Sodium 40 mg 08/05/24 09:00 08/25/24 08:44 Enoxaparin 40 Mg/0.4 Ml Syringe SUB-Q 40 mg DAILY MORGAN Administration Furosemide 40 mg 08/16/24 09:00 08/25/24 08:44 Furosemide 40 Mg Tablet PO 40 mg DAILY MORGAN Administration Glucagon 1 mg 08/09/24 07:57 Glucagon For Inj 1 Mg Vial IM PRN PRN Hypoglycemia Protocol Glucose 15 gm 08/09/24 07:57 Glucose Oral Gel 15 Gm Of Glucse In 37.5 Gm Tube PO PRN PRN Hypoglycemia Protocol Dextrose 1,000 mls @ 100 mls/hr 08/09/24 07:57 Dextrose 5% 1,000 Ml IVPB PRN PRN Hypoglycemia Protocol Lidocaine 1 patch 08/04/24 10:25 08/25/24 08:44 Lidocaine 5% Patch TRANSDERM 1 patch DAILY MORGAN Administration Lidocaine 1 patch 08/15/24 09:00 08/25/24 08:44 Lidocaine 5% Patch TRANSDERM 1 patch DAILY MORGAN Administration Metoclopramide HCl 10 mg 08/24/24 11:30 08/25/24 11:32 Metoclopramide Hcl 10 Mg Tablet PO 10 mg ACHS MORGAN Administration Naloxone HCl 0.1 mg 08/08/24 05:45 Naloxone Hcl 0.4 Mg/Ml Vial IV PUSH Q2M PRN Opiate Reversal Ondansetron HCl 4 mg 08/03/24 15:38 08/15/24 20:54 Ondansetron Inj 4 Mg/2 Ml Vial IV PUSH 4 mg Q4H PRN Administration Nausea Pantoprazole Sodium 40 mg 08/24/24 21:00 08/25/24 08:44 Pantoprazole 40 Mg Tablet PO 40 mg Q12HR MORGAN Administration Phenytoin 100 mg 08/22/24 13:45 08/25/24 08:44 Phenytoin Susp 100 Mg/4 Ml Udc PO 100 mg DAILY MORGAN Administration Phenytoin 150 mg 08/22/24 21:00 08/24/24 20:53 Phenytoin Susp 100 Mg/4 Ml Udc PO 150 mg HS MORGAN Administration Quetiapine Fumarate 25 mg 08/20/24 21:00 08/24/24 20:56 Quetiapine Fumarate 25 Mg Tablet PO 25 mg HS MORGAN Administration Sodium Chloride 20 ml 08/06/24 23:57 08/25/24 05:42 Central Line Flush IV PUSH 20 ml PRN PRN Administration after blood draws Sodium Chloride 10 ml 08/06/24 23:57 Central Line Flush IV PUSH PRN PRN with TPN bag changes Sodium Chloride 10 ml 08/07/24 06:00 08/25/24 11:32 Central Line Flush IV PUSH 10 ml Q8HR MORGAN Administration Sodium Chloride 20 ml 08/22/24 05:25 08/22/24 05:39 Central Line Flush IV PUSH 20 ml PRN PRN Administration after blood draws Sodium Chloride 10 ml 08/22/24 05:25 Central Line Flush IV PUSH PRN PRN with TPN bag changes Radiology Results: ITS Impressions Abdomen/Pelvis CT 08/08/24 06:07 Impression: Findings highly suspicious for extensive bowel ischemia, extensive small bowel and gastric pneumatosis and extensive portal venous gas. Extensive dilatation of small bowel loops and stomach with decompression of large bowel. Transition point not well delineated, but findings are highly suspicious for distal small bowel obstruction. NG tube tip at the GE junction. Further advancement of NG tube into the stomach is required for adequate placement. Small bilateral pleural effusions. Head CT 08/10/24 11:18 IMPRESSION: 1. Normal aging brain. Upper GI Series 08/10/24 13:27 IMPRESSION: Findings within the distal esophagus/proximal stomach for which prior fundoplication is suspected. Esophageal dysmotility and significant esophageal reflux is also detected. Chest X-Ray 08/15/24 10:10 IMPRESSION: Minimal opacification the right lung base suggestive of atelectasis versus pneumonia. Abdomen X-Ray 08/21/24 16:13 IMPRESSION: Significant gaseous distention of the colon. Contrast opacification of the rectum which is markedly distended. Percutaneous gastrostomy to the left of midline. Modified Barium Swallow 08/23/24 14:43 IMPRESSION: 1. Aspiration of thin liquids. 2. Please refer to the speech therapy report for recommendations. Labs Labs: Laboratory Results - last 24 hr 08/24/24 08/24/24 08/25/24 17:56 23:38 05:03 WBC 3.3 L RBC 2.56 L Hgb 8.5 L Hct 26.8 L MCV 104.7 H MCH 33.2 MCHC 31.7 L RDW 15.7 H Plt Count 262 MPV 8.5 Sodium 134 L Potassium 3.8 Chloride 99 Carbon Dioxide 29 Anion Gap 6 BUN 17 Creatinine 0.44 L Estim Creat Clear Calc Not Reportable Estimated GFR > 60 Glucose 93 POC Capillary Glucose 89 107 H Calcium 8.3 L Total Bilirubin 0.3 AST 30 ALT 35 Alkaline Phosphatase 84 Total Protein 5.0 L Albumin 2.8 L Quality VTE Prophylaxis VTE prophylaxis: mechanical ordered Hospitalist [facility] Advance Care Plan I have confirmed that the patient's Advanced Care Plan is present, code status is documented, or surrogate decision maker is listed in patient medical record.: Yes Medication Reconciliation I have utilized all available resources to obtain, update and review the patients current medications (includes all prescriptions, OTC, herbals, cannabis, and nutritional supplements).: Yes
[2024-08-25 20:10] VITALS: BP 116/55; PULSE 85; RESP 16; TEMP 36.9; O2SAT 100
[2024-08-25] MEDS: QUEtiapine FUMARATE 25 MG TABLET PO (20:40)
--- NOTE | 2024-08-25 22:10 | PC.NURSE ---
PT CONCERNED ABOUT PHENYTOIN LEVEL. DISCUSSED WITH VITA WATSON NP. VITA WILL DISCUSS WITH PHARMACY. PT INFORMED
[2024-08-26 04:43] VITALS: BP 100/46; PULSE 78; RESP 18; TEMP 36.7; O2SAT 97
[2024-08-26] MEDS: CENTRAL LINE FLUSH 20 ML IV PUSH (05:48)
[2024-08-26] MEDS: CENTRAL LINE FLUSH 10 ML IV PUSH ×3 (05:49→21:23)
[2024-08-26] MEDS: METOCLOPRAMIDE HCL 10 MG TABLET PO ×3 (05:49→20:32)
[2024-08-26 06:31] LABS: Phenytoin Dilantin < 3 ug/mL (10-20)
[2024-08-26 07:49] VITALS: BP 112/50; PULSE 76; RESP 18; TEMP 36.9; O2SAT 98
[2024-08-26 08:49] LABS: Alanine Aminotransferase 35 U/L (6-35); Alkaline Phosphatase 89 U/L (38-126); Anion Gap 8 mmol/L (4-12); Aspartate Amino Transferase 32 U/L (14-36); Bilirubin,Total 0.3 mg/dL (0.2-1.3); Blood Urea Nitrogen 15 mg/dL (7-17); Calcium 8.6 mg/dL (8.4-10.2); Carbon Dioxide 27 mmol/L (22-30); Chloride 101 mmol/L (98-107); Estimated Glomerular Filt Rate > 60; Glucose 86 mg/dL (65-110); Potassium 3.9 mmol/L (3.4-5.0); Sodium 136 mmol/L (137-145)
[2024-08-26] MEDS: PANTOPRAZOLE 40 MG TABLET PO ×2 (09:29→20:32)
[2024-08-26] MEDS: FUROSEMIDE 40 MG TABLET PO (09:29)
[2024-08-26] MEDS: ENOXAPARIN 40 MG/0.4 ML SYRINGE SUB-Q (09:31)
[2024-08-26] MEDS: LIDOCAINE 5% PATCH 1 PATCH TRANSDERM ×2 (09:50→09:51)
[2024-08-26 10:17] LABS: Hematocrit 31.1 % (37.0-47.0); Hemoglobin 10.2 g/dL (12.0-15.0); Mean Corpuscular HGB Conc 32.8 g/dl (32-36); Mean Corpuscular Hemoglobin 33.9 pg (26-34); Mean Corpuscular Volume 103.3 fl (80-100); Mean Platelet Volume 8.5 fl (7.4-10.4); Platelet Count Result 281 k/mm3 (150-375); Red Blood Count 3.01 M/mm3 (4.2-5.4); Red Cell Distribution Width 15.8 % (11.5-14.5); White Blood Count 3.8 K/mm3 (4.5-10.0)
--- NOTE | 2024-08-26 11:19 | PCDIET ---
Calorie Count- 08/24 Dinner approx 360 kcals, 08/25 Breakfast-approx 540 kcals, 08/25 Lunch- appox 240 kcal, 08/25 Dinner- approx 535 kcal, 08/26 Breakfast-approx 270 kcal. Overall intake is meeting energy needs. Recommend to discontinue tube feedings and continue Pureed, Level 4 diet with Moderately Thick liquids, Level 2 with diet supplements on trays. Will monitor every 3 days.
[2024-08-26 15:22] VITALS: BP 117/60; PULSE 88; RESP 24; TEMP 36.6; O2SAT 99
--- NOTE | 2024-08-26 15:36 | PM.IMPN ---
Progress Note: A&P Assessment and Plan (1) Small bowel obstruction: Code(s): K56.609 - Unspecified intestinal obstruction, unspecified as to partial versus complete obstruction Status: Acute Assessment and Plan: Patient has a prolonged hospitalization from 08/03-08/23 Events that happened during the hospitalization includes: 08/03 :Open incarcerated left femoral hernia repair without mesh 08/08 :Exploratory laparotomy, gastrostomy tube placement S/P EGD showed intact gastrostomy tube and gastritis 08/19:Bedside replacement of dislodged gastrostomy tube with Khanna catheter through existing tract. Status post 08/03 Open incarcerated left femoral hernia repair without mesh 08/08 Exploratory laparotomy, gastrostomy tube placement S/p EGD showed intact gastrostomy tube and gastritis 08/19:Bedside replacement of dislodged gastrostomy tube with Khanna catheter through existing tract. Status post Tube feeding advance diet per speech recs continue advancing diet as tolerated plan is to monitor this and re-eval on Thursday for discharge planning GI and GEN surgery following (2) Ileus, postoperative: Code(s): K91.89 - Other postprocedural complications and disorders of digestive system; K56.7 - Ileus, unspecified Status: Acute Assessment and Plan: Resolving Encouraging oral intake monitor (3) Incarcerated left inguinal hernia: Code(s): K40.30 - Unilateral inguinal hernia, with obstruction, without gangrene, not specified as recurrent Status: Acute Assessment and Plan: See above (4) EULALIO (acute kidney injury): Code(s): N17.9 - Acute kidney failure, unspecified Status: Acute Assessment and Plan: resolved (5) Sepsis: Code(s): A41.9 - Sepsis, unspecified organism Status: Acute Assessment and Plan: Completed Zosyn. UA was unremarkable 08/08: blood cultures are negative so far (6) Seizures: Code(s): R56.9 - Unspecified convulsions Status: Chronic Assessment and Plan: The patient's family had concerns about a lower level of Phenytoin. I discussed this with , who is, although not on the call, able to guide on the lower levels of Phenytoin. We gave one dose of 600 mg phenytoin p.o. I spoke with Ms. David's daughter and agreed to talk to her outpatient neurologist. Dr. Alfaro . She called, and we both decided to start Keppra 500 mg p.o. b.i.d., and she can follow up as an outpatient with her. In the meantime, I raised the concern about withdrawals of Phenytoin, and she agreed to continue Phenytoin 150 mg p.o. q.d. for 5 days. The family expressed concern about immediate actions on the lower level of Phenytoin. I explained to them that certain medical decisions need time and require multi-disciplinary team conversation and decisions that cannot happen in a few seconds. (7) Electrolyte abnormality: Code(s): E87.8 - Other disorders of electrolyte and fluid balance, not elsewhere classified Status: Acute Assessment and Plan: Replace potassium (8) Pulmonary edema: Code(s): J81.1 - Chronic pulmonary edema Status: Acute Assessment and Plan: Resolved Chest x-ray shows pulmonary edema. Elevated BNP Echo reviewed lasix x1 today for SOB and wheezy lungs (9) Leukocytosis: Code(s): D72.829 - Elevated white blood cell count, unspecified Status: Acute Assessment and Plan: Resolved Status post iv zosyn and iv vancomycin added for possible aspiration pneumonia watch cultures Plan DVT prophylaxis on Sq lovenox Discharge planning from Thursday, advance oral diet Subjective Date/time seen: 08/26/24 15:36 Interval history: The patient's family had concerns about a lower level of Phenytoin. I discussed this with , who is, although not on the call, able to guide on the lower levels of Phenytoin. We gave one dose of 600 mg phenytoin p.o. I spoke with Ms. David's daughter and agreed to talk to her outpatient neurologist. Dr. Alfaro called, and we both decided to start Keppra 500 mg p.o. b.i.d., and she can follow up as an outpatient with her. In the meantime, I raised the concern about withdrawals of Phenytoin, and she agreed to continue Phenytoin 150 mg p.o. q.d. for 5 days. The family expressed concern about immediate actions on the lower level of Phenytoin. I explained to them that certain medical decisions need time and require multi-disciplinary team conversation and decisions that cannot happen in a few seconds. Review of Systems Review of Systems: SOB and wheezy lungs today All systems reviewed & are unremarkable except as noted in HPI and below (HPI) Exam Narrative: General: Frail elderly lady with NG tube in situ and tube feeds Lungs/Chest: BL wheezy lungs Cardiac: RRR. Normal S1 S2. No murmurs Circulation: Palpable pedal pulses, feet are warm Abdomen: Hypoactive bowel sound. Mild tenderness to palpation, gastrostomy tube in place, incision under dressing Extremities: No clubbing or cyanosis, bilateral edema present : Khanna in place Neurologic: Follows commands. Moves all 4 extremities PERRL AO x3 Skin: No Rash Const: General: comfortable and no acute distress Other: The patient is recumbent in a stretcher in the PACU. , female, elderly, modestly ill-appearing. +fatigue. HENMT: Face/Nose/Sinus: Normal nares present Mouth: Yes dry mucous membranes Other: NG in place. Eyes: General: appearance normal, both eyes and all related structures Sclera: sclerae normal Pupils: Equal, round and reactive pupils present EOM: EOMs intact bilaterally Resp: Effort & Inspection: normal respiratory effort Auscultation: clear to auscultation bilaterally Cardio: Rate: regular rate Rhythm: regular rhythm Other: S1-S2 present without murmur, rub, ectopy GI: Other: Abdomen firm, distended. bowel sounds present, Drain in place, serosanguineous output. Skin: General skin exam: normal color and no rashes or lesions noted Wounds: no wounds Neuro: Cranial nerves: Yes Equal, round and reactive pupils present Speech: normal speech Motor exam (neuro): 5/5 motor strength present throughout Sensory Exam: normal sensation Other: A&O x4, mildly somnolent. Extrem: General: normal to inspection Psych: Mental Status: mental status grossly normal Affect: normal affect Other: Good insight and judgment, pleasant Objective Data Vital Signs Vital Signs: Vital Signs - 24 hr 08/25/24 20:10 08/26/24 04:43 08/26/24 07:49 Temperature 98.5 F 98.1 F 98.4 F Pulse Rate 85 78 76 Respiratory Rate 16 18 18 Blood Pressure 116/55 L 100/46 L 112/50 L Pulse Oximetry 100 97 98 Oxygen Delivery 08/26/24 09:40 08/26/24 15:22 Temperature 97.8 F Pulse Rate 88 Respiratory Rate 24 H Blood Pressure 117/60 Pulse Oximetry 99 Oxygen Delivery Room Air Intake/Output Intake/Output: Intake & Output 08/23/24 08/24/24 08/25/24 08/26/24 23:59 23:59 23:59 23:59 Intake Total 1800 1996 1200 260 Output Total 500 500 Balance 1800 1497 700 260 Meds/Results Medications: Active Medications Generic Name Dose Route Start Last Admin Trade Name Freq PRN Reason Stop Dose Admin Acetaminophen 650 mg 08/18/24 13:39 08/22/24 10:11 Acetaminophen 325 Mg Tablet FEED TUBE 650 mg Q4H PRN Administration Mild Pain (1-3) or Fever Hydrocodone Bitart/Acetaminophen 1 tab 08/18/24 13:39 08/23/24 13:25 Hydrocodone/Acetaminophen (*Crx) 5-325 Mg Tablet FEED TUBE 1 tab Q4H PRN Administration Pain Rated 4-6 Albuterol/Ipratropium 3 ml 08/24/24 09:39 Ipratropium 0.5 Mg/Albuterol Sulfate 2.5 Mg Ampul.Neb 3 Ml INHALATION Q6HRT PRN Shortness Of Breath Alteplase, Recombinant 2 mg 08/21/24 20:01 08/21/24 20:22 Alteplase 2 Mg Vial (Cathflo) IV PUSH 2 mg ONCE PRN Administration Line Occlusion Bisacodyl 10 mg 08/18/24 14:02 08/23/24 17:48 Bisacodyl 10 Mg Suppository RECTAL 10 mg QAM PRN Administration Constipation Dextrose 12.5 gm 08/09/24 07:57 Dextrose 50% 25 Gm/50 Ml Syringe IV PUSH PRN PRN Hypoglycemia Protocol Enoxaparin Sodium 40 mg 08/05/24 09:00 08/26/24 09:31 Enoxaparin 40 Mg/0.4 Ml Syringe SUB-Q 40 mg DAILY MORGAN Administration Furosemide 40 mg 08/16/24 09:00 08/26/24 09:29 Furosemide 40 Mg Tablet PO 40 mg DAILY MORGAN Administration Glucagon 1 mg 08/09/24 07:57 Glucagon For Inj 1 Mg Vial IM PRN PRN Hypoglycemia Protocol Glucose 15 gm 08/09/24 07:57 Glucose Oral Gel 15 Gm Of Glucse In 37.5 Gm Tube PO PRN PRN Hypoglycemia Protocol Dextrose 1,000 mls @ 100 mls/hr 08/09/24 07:57 Dextrose 5% 1,000 Ml IVPB PRN PRN Hypoglycemia Protocol Levetiracetam 500 mg 08/27/24 09:00 Levetiracetam 500 Mg Tablet PO Q12HR MORGAN Lidocaine 1 patch 08/04/24 10:25 08/26/24 09:50 Lidocaine 5% Patch TRANSDERM 1 patch DAILY MORGAN Administration Lidocaine 1 patch 08/15/24 09:00 08/26/24 09:51 Lidocaine 5% Patch TRANSDERM 1 patch DAILY MORGAN Administration Metoclopramide HCl 10 mg 08/24/24 11:30 08/26/24 10:53 Metoclopramide Hcl 10 Mg Tablet PO 10 mg ACHS MORGAN Administration Naloxone HCl 0.1 mg 08/08/24 05:45 Naloxone Hcl 0.4 Mg/Ml Vial IV PUSH Q2M PRN Opiate Reversal Ondansetron HCl 4 mg 08/03/24 15:38 08/15/24 20:54 Ondansetron Inj 4 Mg/2 Ml Vial IV PUSH 4 mg Q4H PRN Administration Nausea Pantoprazole Sodium 40 mg 08/24/24 21:00 08/26/24 09:29 Pantoprazole 40 Mg Tablet PO 40 mg Q12HR MORGAN Administration Phenytoin 150 mg 08/26/24 21:00 Phenytoin Susp 100 Mg/4 Ml Udc PO 08/31/24 12:00 HS MORGAN Quetiapine Fumarate 25 mg 08/20/24 21:00 08/25/24 20:40 Quetiapine Fumarate 25 Mg Tablet PO 25 mg HS MORGAN Administration Sodium Chloride 20 ml 08/06/24 23:57 08/25/24 05:42 Central Line Flush IV PUSH 20 ml PRN PRN Administration after blood draws Sodium Chloride 10 ml 08/06/24 23:57 Central Line Flush IV PUSH PRN PRN with TPN bag changes Sodium Chloride 10 ml 08/07/24 06:00 08/26/24 14:38 Central Line Flush IV PUSH 10 ml Q8HR MORGAN Administration Sodium Chloride 20 ml 08/22/24 05:25 08/26/24 05:48 Central Line Flush IV PUSH 20 ml PRN PRN Administration after blood draws Sodium Chloride 10 ml 08/22/24 05:25 Central Line Flush IV PUSH PRN PRN with TPN bag changes Radiology Results: ITS Impressions Abdomen/Pelvis CT 08/08/24 06:07 Impression: Findings highly suspicious for extensive bowel ischemia, extensive small bowel and gastric pneumatosis and extensive portal venous gas. Extensive dilatation of small bowel loops and stomach with decompression of large bowel. Transition point not well delineated, but findings are highly suspicious for distal small bowel obstruction. NG tube tip at the GE junction. Further advancement of NG tube into the stomach is required for adequate placement. Small bilateral pleural effusions. Head CT 08/10/24 11:18 IMPRESSION: 1. Normal aging brain. Upper GI Series 08/10/24 13:27 IMPRESSION: Findings within the distal esophagus/proximal stomach for which prior fundoplication is suspected. Esophageal dysmotility and significant esophageal reflux is also detected. Chest X-Ray 08/15/24 10:10 IMPRESSION: Minimal opacification the right lung base suggestive of atelectasis versus pneumonia. Abdomen X-Ray 08/21/24 16:13 IMPRESSION: Significant gaseous distention of the colon. Contrast opacification of the rectum which is markedly distended. Percutaneous gastrostomy to the left of midline. Modified Barium Swallow 08/23/24 14:43 IMPRESSION: 1. Aspiration of thin liquids. 2. Please refer to the speech therapy report for recommendations. Labs Labs: Laboratory Results - last 24 hr 08/26/24 08/26/24 08/26/24 05:50 05:54 09:30 WBC 3.8 L RBC 3.01 L Hgb 10.2 L Hct 31.1 L MCV 103.3 H MCH 33.9 MCHC 32.8 RDW 15.8 H Plt Count 281 MPV 8.5 Sodium 136 L Potassium 3.9 Chloride 101 Carbon Dioxide 27 Anion Gap 8 BUN 15 Creatinine 0.43 L Estim Creat Clear Calc Not Reportable Estimated GFR > 60 Glucose 86 Calcium 8.6 Total Bilirubin 0.3 AST 32 ALT 35 Alkaline Phosphatase 89 Total Protein 6.0 L Albumin 3.0 L Phenytoin < 3 L Hospitalist MIPS Advance Care Plan I have confirmed that the patient's Advanced Care Plan is present, code status is documented, or surrogate decision maker is listed in patient medical record.: Yes Medication Reconciliation I have utilized all available resources to obtain, update and review the patients current medications (includes all prescriptions, OTC, herbals, cannabis, and nutritional supplements).: Yes
--- NOTE | 2024-08-26 16:59 | PC.NURSE ---
On 08/26/24, the student, Precious Bonilla, provided care and completed [facility] documentation on this patient. I have reviewed the student's documentation and agree with the findings.
--- NOTE | 2024-08-26 18:18 | PM.PNGS ---
Progress Note: A&P Assessment and Plan (1) Ileus, postoperative: Code(s): K91.89 - Other postprocedural complications and disorders of digestive system; K56.7 - Ileus, unspecified Status: Acute Assessment and Plan: Eating better and having bowel movements. Dietitian reports that her oral intake is adequate. Plan to DC her gastrostomy tube tomorrow. (2) Incarcerated left inguinal hernia: Code(s): K40.30 - Unilateral inguinal hernia, with obstruction, without gangrene, not specified as recurrent Status: Acute Assessment and Plan: Repair intact. Subjective Subjective Date/Time Seen: 08/26/24 18:18 Patient reports: tolerating liquids well (Eating pureed diet pretty well), bowel movement, afebrile and other (Gastrostomy tube is really bothering her) Exam Const: General: comfortable, alert and awake Nutritional Appearance: thin GI: Inspection: non-distended GI Palp: Yes Soft to palpation and No Tenderness to palpation present (GI) Objective Data Vital Signs Vital Signs: Vital Signs - 24 hr 08/25/24 20:10 08/26/24 04:43 08/26/24 07:49 Temperature 36.9 C 36.7 C 36.9 C Pulse Rate 85 78 76 Respiratory Rate 16 18 18 Blood Pressure 116/55 L 100/46 L 112/50 L Pulse Oximetry 100 97 98 Oxygen Delivery 08/26/24 09:40 08/26/24 15:22 Temperature 36.6 C Pulse Rate 88 Respiratory Rate 24 H Blood Pressure 117/60 Pulse Oximetry 99 Oxygen Delivery Room Air Intake/Output Intake/Output: Intake & Output 08/23/24 08/24/24 08/25/24 08/26/24 23:59 23:59 23:59 23:59 Intake Total 1800 1997 1200 260 Output Total 500 500 Balance 1800 1497 700 260 Meds/Results Medications: Active Medications Generic Name Dose Route Start Last Admin Trade Name Freq PRN Reason Stop Dose Admin Acetaminophen 650 mg 08/18/24 13:39 08/22/24 10:11 Acetaminophen 325 Mg Tablet FEED TUBE 650 mg Q4H PRN Administration Mild Pain (1-3) or Fever Hydrocodone Bitart/Acetaminophen 1 tab 08/18/24 13:39 08/23/24 13:25 Hydrocodone/Acetaminophen (*Crx) 5-325 Mg Tablet FEED TUBE 1 tab Q4H PRN Administration Pain Rated 4-6 Albuterol/Ipratropium 3 ml 08/24/24 09:39 Ipratropium 0.5 Mg/Albuterol Sulfate 2.5 Mg Ampul.Neb 3 Ml INHALATION Q6HRT PRN Shortness Of Breath Alteplase, Recombinant 2 mg 08/21/24 20:01 08/21/24 20:22 Alteplase 2 Mg Vial (Cathflo) IV PUSH 2 mg ONCE PRN Administration Line Occlusion Bisacodyl 10 mg 08/18/24 14:02 08/23/24 17:48 Bisacodyl 10 Mg Suppository RECTAL 10 mg QAM PRN Administration Constipation Dextrose 12.5 gm 08/09/24 07:57 Dextrose 50% 25 Gm/50 Ml Syringe IV PUSH PRN PRN Hypoglycemia Protocol Enoxaparin Sodium 40 mg 08/05/24 09:00 08/26/24 09:31 Enoxaparin 40 Mg/0.4 Ml Syringe SUB-Q 40 mg DAILY MORGAN Administration Furosemide 40 mg 08/16/24 09:00 08/26/24 09:29 Furosemide 40 Mg Tablet PO 40 mg DAILY MORGAN Administration Glucagon 1 mg 08/09/24 07:57 Glucagon For Inj 1 Mg Vial IM PRN PRN Hypoglycemia Protocol Glucose 15 gm 08/09/24 07:57 Glucose Oral Gel 15 Gm Of Glucse In 37.5 Gm Tube PO PRN PRN Hypoglycemia Protocol Dextrose 1,000 mls @ 100 mls/hr 08/09/24 07:57 Dextrose 5% 1,000 Ml IVPB PRN PRN Hypoglycemia Protocol Levetiracetam 500 mg 08/27/24 09:00 Levetiracetam 500 Mg Tablet PO Q12HR MORGAN Lidocaine 1 patch 08/04/24 10:25 08/26/24 09:50 Lidocaine 5% Patch TRANSDERM 1 patch DAILY MORGAN Administration Lidocaine 1 patch 08/15/24 09:00 08/26/24 09:51 Lidocaine 5% Patch TRANSDERM 1 patch DAILY MORGAN Administration Metoclopramide HCl 10 mg 08/24/24 11:30 08/26/24 16:05 Metoclopramide Hcl 10 Mg Tablet PO Not Given ACHS MORGAN Naloxone HCl 0.1 mg 08/08/24 05:45 Naloxone Hcl 0.4 Mg/Ml Vial IV PUSH Q2M PRN Opiate Reversal Ondansetron HCl 4 mg 08/03/24 15:38 08/15/24 20:54 Ondansetron Inj 4 Mg/2 Ml Vial IV PUSH 4 mg Q4H PRN Administration Nausea Pantoprazole Sodium 40 mg 08/24/24 21:00 08/26/24 09:29 Pantoprazole 40 Mg Tablet PO 40 mg Q12HR MORGAN Administration Phenytoin 150 mg 08/26/24 21:00 Phenytoin Susp 100 Mg/4 Ml Udc PO 08/31/24 12:00 HS MORGAN Quetiapine Fumarate 25 mg 08/20/24 21:00 08/25/24 20:40 Quetiapine Fumarate 25 Mg Tablet PO 25 mg HS MORGAN Administration Sodium Chloride 20 ml 08/06/24 23:57 08/25/24 05:42 Central Line Flush IV PUSH 20 ml PRN PRN Administration after blood draws Sodium Chloride 10 ml 08/06/24 23:57 Central Line Flush IV PUSH PRN PRN with TPN bag changes Sodium Chloride 10 ml 08/07/24 06:00 08/26/24 14:38 Central Line Flush IV PUSH 10 ml Q8HR MORGAN Administration Sodium Chloride 20 ml 08/22/24 05:25 08/26/24 05:48 Central Line Flush IV PUSH 20 ml PRN PRN Administration after blood draws Sodium Chloride 10 ml 08/22/24 05:25 Central Line Flush IV PUSH PRN PRN with TPN bag changes Radiology Results: ITS Impressions Abdomen/Pelvis CT 08/08/24 06:07 Impression: Findings highly suspicious for extensive bowel ischemia, extensive small bowel and gastric pneumatosis and extensive portal venous gas. Extensive dilatation of small bowel loops and stomach with decompression of large bowel. Transition point not well delineated, but findings are highly suspicious for distal small bowel obstruction. NG tube tip at the GE junction. Further advancement of NG tube into the stomach is required for adequate placement. Small bilateral pleural effusions. Head CT 08/10/24 11:18 IMPRESSION: 1. Normal aging brain. Upper GI Series 08/10/24 13:27 IMPRESSION: Findings within the distal esophagus/proximal stomach for which prior fundoplication is suspected. Esophageal dysmotility and significant esophageal reflux is also detected. Chest X-Ray 08/15/24 10:10 IMPRESSION: Minimal opacification the right lung base suggestive of atelectasis versus pneumonia. Abdomen X-Ray 08/21/24 16:13 IMPRESSION: Significant gaseous distention of the colon. Contrast opacification of the rectum which is markedly distended. Percutaneous gastrostomy to the left of midline. Modified Barium Swallow 08/23/24 14:43 IMPRESSION: 1. Aspiration of thin liquids. 2. Please refer to the speech therapy report for recommendations. Labs Labs: Laboratory Results - last 24 hr 08/26/24 08/26/24 08/26/24 05:50 05:54 09:30 WBC 3.8 L RBC 3.01 L Hgb 10.2 L Hct 31.1 L MCV 103.3 H MCH 33.9 MCHC 32.8 RDW 15.8 H Plt Count 281 MPV 8.5 Sodium 136 L Potassium 3.9 Chloride 101 Carbon Dioxide 27 Anion Gap 8 BUN 15 Creatinine 0.43 L Estim Creat Clear Calc Not Reportable Estimated GFR > 60 Glucose 86 Calcium 8.6 Total Bilirubin 0.3 AST 32 ALT 35 Alkaline Phosphatase 89 Total Protein 6.0 L Albumin 3.0 L Phenytoin < 3 L
[2024-08-26 20:10] VITALS: PULSE 85; RESP 20; O2SAT 97
[2024-08-26 20:13] VITALS: BP 104/71; PULSE 85; RESP 20; TEMP 37.6; O2SAT 97
[2024-08-26] MEDS: QUEtiapine FUMARATE 25 MG TABLET PO (20:32)
[2024-08-27] VITALS: BP 112/47; PULSE 74; RESP 20; TEMP 36.8; O2SAT 100
[2024-08-27 05:08] LABS: Hematocrit 27.5 % (37.0-47.0); Hemoglobin 9.1 g/dL (12.0-15.0); Mean Corpuscular HGB Conc 33.1 g/dl (32-36); Mean Corpuscular Volume 102.6 fl (80-100); Mean Platelet Volume 8.3 fl (7.4-10.4); Platelet Count Result 231 k/mm3 (150-375); Red Blood Count 2.68 M/mm3 (4.2-5.4); Red Cell Distribution Width 15.8 % (11.5-14.5); White Blood Count 3.9 K/mm3 (4.5-10.0)
[2024-08-27 05:17] LABS: Alanine Aminotransferase 33 U/L (6-35); Albumin Level 2.9 g/dL (3.5-5.1); Alkaline Phosphatase 87 U/L (38-126); Anion Gap 7 mmol/L (4-12); Aspartate Amino Transferase 28 U/L (14-36); Bilirubin,Total 0.2 mg/dL (0.2-1.3); Blood Urea Nitrogen 16 mg/dL (7-17); Calcium 8.3 mg/dL (8.4-10.2); Carbon Dioxide 28 mmol/L (22-30); Chloride 100 mmol/L (98-107); Estimated Glomerular Filt Rate > 60; Glucose 90 mg/dL (65-110); Potassium 3.6 mmol/L (3.4-5.0); Sodium 135 mmol/L (137-145)
[2024-08-27] MEDS: CENTRAL LINE FLUSH 10 ML IV PUSH ×3 (05:24→21:10)
[2024-08-27] MEDS: METOCLOPRAMIDE HCL 10 MG TABLET PO ×4 (06:07→21:09)
--- NOTE | 2024-08-27 07:38 | PM.IMPN ---
Progress Note: A&P Assessment and Plan (1) Small bowel obstruction: Code(s): K56.609 - Unspecified intestinal obstruction, unspecified as to partial versus complete obstruction Status: Acute Assessment and Plan: Patient has a prolonged hospitalization from 08/03-08/23 Events that happened during the hospitalization includes: 08/03 :Open incarcerated left femoral hernia repair without mesh 08/08 :Exploratory laparotomy, gastrostomy tube placement S/P EGD showed intact gastrostomy tube and gastritis 08/19:Bedside replacement of dislodged gastrostomy tube with Khanna catheter through existing tract. Status post 08/03 Open incarcerated left femoral hernia repair without mesh 08/08 Exploratory laparotomy, gastrostomy tube placement S/p EGD showed intact gastrostomy tube and gastritis 08/19:Bedside replacement of dislodged gastrostomy tube with Khanna catheter through existing tract. Status post Tube feeding advance diet per speech recs continue advancing diet as tolerated plan is to monitor this and re-eval on Thursday for discharge planning GI and GEN surgery following (2) Ileus, postoperative: Code(s): K91.89 - Other postprocedural complications and disorders of digestive system; K56.7 - Ileus, unspecified Status: Acute Assessment and Plan: Resolving Encouraging oral intake monitor (3) Incarcerated left inguinal hernia: Code(s): K40.30 - Unilateral inguinal hernia, with obstruction, without gangrene, not specified as recurrent Status: Acute Assessment and Plan: See above (4) EULALIO (acute kidney injury): Code(s): N17.9 - Acute kidney failure, unspecified Status: Acute Assessment and Plan: resolved (5) Sepsis: Code(s): A41.9 - Sepsis, unspecified organism Status: Acute Assessment and Plan: Completed Zosyn. UA was unremarkable 08/08: blood cultures are negative so far (6) Seizures: Code(s): R56.9 - Unspecified convulsions Status: Chronic Assessment and Plan: Continue Dilantin 150mg PO HS x 5 days Started Keppra 500 mg PO BID Follow up with OP her neurologist (7) Electrolyte abnormality: Code(s): E87.8 - Other disorders of electrolyte and fluid balance, not elsewhere classified Status: Acute Assessment and Plan: Replace potassium (8) Pulmonary edema: Code(s): J81.1 - Chronic pulmonary edema Status: Acute Assessment and Plan: Resolved Chest x-ray shows pulmonary edema. Elevated BNP Echo reviewed Discontinue Lasix Initially does started due to pulmonary edema which is resolved Echocardiogram shows 60-65% (9) Leukocytosis: Code(s): D72.829 - Elevated white blood cell count, unspecified Status: Acute Assessment and Plan: Resolved Status post iv zosyn and iv vancomycin added for possible aspiration pneumonia watch cultures Plan DVT prophylaxis on Sq lovenox Discharge planning from Thursday, advance oral diet Subjective Date/time seen: 08/27/24 07:38 Interval history: Patient oral intake has been improved. Will calculate the calorie count. On average patient needs 25 calories per kg. As mentioned above yesterday patient will be receiving Keppra 500 mg p.o. b.i.d. and phenytoin 150 mg p.o. q.h.s. for 5 days. Patient left ventricular ejection fraction 60-65%. Will discontinue Lasix. Lasix initially was started due to chest x-ray showing pulmonary edema which is resolved. Review of Systems Review of Systems: SOB and wheezy lungs today All systems reviewed & are unremarkable except as noted in HPI and below (HPI) Exam Narrative: General: Frail elderly lady with NG tube in situ and tube feeds Lungs/Chest: BL wheezy lungs Cardiac: RRR. Normal S1 S2. No murmurs Circulation: Palpable pedal pulses, feet are warm Abdomen: Hypoactive bowel sound. Mild tenderness to palpation, gastrostomy tube in place, incision under dressing Extremities: No clubbing or cyanosis, bilateral edema present : Khanna in place Neurologic: Follows commands. Moves all 4 extremities PERRL AO x3 Skin: No Rash Const: General: comfortable and no acute distress Other: The patient is recumbent in a stretcher in the PACU. , female, elderly, modestly ill-appearing. +fatigue. HENMT: Face/Nose/Sinus: Normal nares present Mouth: Yes dry mucous membranes Other: NG in place. Eyes: General: appearance normal, both eyes and all related structures Sclera: sclerae normal Pupils: Equal, round and reactive pupils present EOM: EOMs intact bilaterally Resp: Effort & Inspection: normal respiratory effort Auscultation: clear to auscultation bilaterally Cardio: Rate: regular rate Rhythm: regular rhythm Other: S1-S2 present without murmur, rub, ectopy GI: Other: Abdomen firm, distended. bowel sounds present, Drain in place, serosanguineous output. Skin: General skin exam: normal color and no rashes or lesions noted Wounds: no wounds Neuro: Cranial nerves: Yes Equal, round and reactive pupils present Speech: normal speech Motor exam (neuro): 5/5 motor strength present throughout Sensory Exam: normal sensation Other: A&O x4, mildly somnolent. Extrem: General: normal to inspection Psych: Mental Status: mental status grossly normal Affect: normal affect Other: Good insight and judgment, pleasant Objective Data Vital Signs Vital Signs: Vital Signs - 24 hr 08/26/24 07:49 08/26/24 09:40 08/26/24 15:22 Temperature 98.4 F 97.8 F Pulse Rate 76 88 Respiratory Rate 18 24 H Blood Pressure 112/50 L 117/60 Pulse Oximetry 98 99 Oxygen Delivery Room Air 08/26/24 20:10 08/26/24 20:13 08/27/24 00:00 Temperature 99.6 F 98.2 F Pulse Rate 85 85 74 Respiratory Rate 20 20 20 Blood Pressure 104/71 112/47 L Pulse Oximetry 97 97 100 Oxygen Delivery Room Air Intake/Output Intake/Output: Intake & Output 08/24/24 08/25/24 08/26/24 08/27/24 23:59 23:59 23:59 23:59 Intake Total 1996 1200 940 200 Output Total 500 500 Balance 1497 700 940 200 Meds/Results Medications: Active Medications Generic Name Dose Route Start Last Admin Trade Name Johanq PRN Reason Stop Dose Admin Acetaminophen 650 mg 08/18/24 13:39 08/22/24 10:11 Acetaminophen 325 Mg Tablet FEED TUBE 650 mg Q4H PRN Administration Mild Pain (1-3) or Fever Hydrocodone Bitart/Acetaminophen 1 tab 08/18/24 13:39 08/23/24 13:25 Hydrocodone/Acetaminophen (*Crx) 5-325 Mg Tablet FEED TUBE 1 tab Q4H PRN Administration Pain Rated 4-6 Albuterol/Ipratropium 3 ml 08/24/24 09:39 Ipratropium 0.5 Mg/Albuterol Sulfate 2.5 Mg Ampul.Neb 3 Ml INHALATION Q6HRT PRN Shortness Of Breath Alteplase, Recombinant 2 mg 08/21/24 20:01 08/21/24 20:22 Alteplase 2 Mg Vial (Cathflo) IV PUSH 2 mg ONCE PRN Administration Line Occlusion Bisacodyl 10 mg 08/18/24 14:02 08/23/24 17:48 Bisacodyl 10 Mg Suppository RECTAL 10 mg QAM PRN Administration Constipation Dextrose 12.5 gm 08/09/24 07:57 Dextrose 50% 25 Gm/50 Ml Syringe IV PUSH PRN PRN Hypoglycemia Protocol Enoxaparin Sodium 40 mg 08/05/24 09:00 08/26/24 09:31 Enoxaparin 40 Mg/0.4 Ml Syringe SUB-Q 40 mg DAILY MORGAN Administration Furosemide 40 mg 08/16/24 09:00 08/26/24 09:29 Furosemide 40 Mg Tablet PO 40 mg DAILY MORGAN Administration Glucagon 1 mg 08/09/24 07:57 Glucagon For Inj 1 Mg Vial IM PRN PRN Hypoglycemia Protocol Glucose 15 gm 08/09/24 07:57 Glucose Oral Gel 15 Gm Of Glucse In 37.5 Gm Tube PO PRN PRN Hypoglycemia Protocol Dextrose 1,000 mls @ 100 mls/hr 08/09/24 07:57 Dextrose 5% 1,000 Ml IVPB PRN PRN Hypoglycemia Protocol Levetiracetam 500 mg 08/27/24 09:00 Levetiracetam 500 Mg Tablet PO Q12HR MORGAN Lidocaine 1 patch 08/04/24 10:25 08/26/24 09:50 Lidocaine 5% Patch TRANSDERM 1 patch DAILY MORGAN Administration Lidocaine 1 patch 08/15/24 09:00 08/26/24 09:51 Lidocaine 5% Patch TRANSDERM 1 patch DAILY MORGAN Administration Metoclopramide HCl 10 mg 08/24/24 11:30 08/27/24 06:07 Metoclopramide Hcl 10 Mg Tablet PO 10 mg ACHS MORGAN Administration Naloxone HCl 0.1 mg 08/08/24 05:45 Naloxone Hcl 0.4 Mg/Ml Vial IV PUSH Q2M PRN Opiate Reversal Ondansetron HCl 4 mg 08/03/24 15:38 08/15/24 20:54 Ondansetron Inj 4 Mg/2 Ml Vial IV PUSH 4 mg Q4H PRN Administration Nausea Pantoprazole Sodium 40 mg 08/24/24 21:00 08/26/24 20:32 Pantoprazole 40 Mg Tablet PO 40 mg Q12HR MORGAN Administration Phenytoin 150 mg 08/26/24 21:00 08/26/24 20:32 Phenytoin Susp 100 Mg/4 Ml Udc PO 08/31/24 12:00 150 mg HS MORGAN Administration Quetiapine Fumarate 25 mg 08/20/24 21:00 08/26/24 20:32 Quetiapine Fumarate 25 Mg Tablet PO 25 mg HS MORGAN Administration Sodium Chloride 20 ml 08/06/24 23:57 08/25/24 05:42 Central Line Flush IV PUSH 20 ml PRN PRN Administration after blood draws Sodium Chloride 10 ml 08/06/24 23:57 Central Line Flush IV PUSH PRN PRN with TPN bag changes Sodium Chloride 10 ml 08/07/24 06:00 08/27/24 05:24 Central Line Flush IV PUSH 10 ml Q8HR MORGAN Administration Sodium Chloride 20 ml 08/22/24 05:25 08/26/24 05:48 Central Line Flush IV PUSH 20 ml PRN PRN Administration after blood draws Sodium Chloride 10 ml 08/22/24 05:25 Central Line Flush IV PUSH PRN PRN with TPN bag changes Radiology Results: ITS Impressions Abdomen/Pelvis CT 08/08/24 06:07 Impression: Findings highly suspicious for extensive bowel ischemia, extensive small bowel and gastric pneumatosis and extensive portal venous gas. Extensive dilatation of small bowel loops and stomach with decompression of large bowel. Transition point not well delineated, but findings are highly suspicious for distal small bowel obstruction. NG tube tip at the GE junction. Further advancement of NG tube into the stomach is required for adequate placement. Small bilateral pleural effusions. Head CT 08/10/24 11:18 IMPRESSION: 1. Normal aging brain. Upper GI Series 08/10/24 13:27 IMPRESSION: Findings within the distal esophagus/proximal stomach for which prior fundoplication is suspected. Esophageal dysmotility and significant esophageal reflux is also detected. Chest X-Ray 08/15/24 10:10 IMPRESSION: Minimal opacification the right lung base suggestive of atelectasis versus pneumonia. Abdomen X-Ray 08/21/24 16:13 IMPRESSION: Significant gaseous distention of the colon. Contrast opacification of the rectum which is markedly distended. Percutaneous gastrostomy to the left of midline. Modified Barium Swallow 08/23/24 14:43 IMPRESSION: 1. Aspiration of thin liquids. 2. Please refer to the speech therapy report for recommendations. Labs Labs: Laboratory Results - last 24 hr 08/26/24 08/26/24 08/27/24 05:50 09:30 05:02 WBC 3.8 L 3.9 L RBC 3.01 L 2.68 L Hgb 10.2 L 9.1 L Hct 31.1 L 27.5 L MCV 103.3 H 102.6 H MCH 33.9 34.0 MCHC 32.8 33.1 RDW 15.8 H 15.8 H Plt Count 281 231 MPV 8.5 8.3 Sodium 136 L 135 L Potassium 3.9 3.6 Chloride 101 100 Carbon Dioxide 27 28 Anion Gap 8 7 BUN 15 16 Creatinine 0.43 L 0.42 L Estim Creat Clear Calc Not Reportable Not Reportable Estimated GFR > 60 > 60 Glucose 86 90 Calcium 8.6 8.3 L Total Bilirubin 0.3 0.2 AST 32 28 ALT 35 33 Alkaline Phosphatase 89 87 Total Protein 6.0 L 6.0 L Albumin 3.0 L 2.9 L Quality VTE Prophylaxis VTE prophylaxis: mechanical ordered Hospitalist [facility] Advance Care Plan I have confirmed that the patient's Advanced Care Plan is present, code status is documented, or surrogate decision maker is listed in patient medical record.: Yes Medication Reconciliation I have utilized all available resources to obtain, update and review the patients current medications (includes all prescriptions, OTC, herbals, cannabis, and nutritional supplements).: Yes
[2024-08-27 08:00] VITALS: BP 119/58; PULSE 88; RESP 16; TEMP 37.1; O2SAT 100
[2024-08-27] MEDS: ENOXAPARIN 40 MG/0.4 ML SYRINGE SUB-Q (09:18)
[2024-08-27] MEDS: PANTOPRAZOLE 40 MG TABLET PO ×2 (09:18→21:10)
[2024-08-27] MEDS: LIDOCAINE 5% PATCH 1 PATCH TRANSDERM ×2 (09:19)
[2024-08-27] MEDS: levETIRAcetam 500 MG TABLET PO ×2 (10:15→21:09)
--- NOTE | 2024-08-27 11:37 | P.PNGS_ITS ---
Progress Note: A&P Assessment and Plan (1) Ileus, postoperative: Code(s): K91.89 - Other postprocedural complications and disorders of digestive system; K56.7 - Ileus, unspecified Status: Acute Assessment and Plan: A well again yesterday. Gastrostomy to review moved without difficulty. Okay for patient to shower but replace dressing over G-tube site after. Making good progress. (2) Incarcerated left inguinal hernia: Code(s): K40.30 - Unilateral inguinal hernia, with obstruction, without gangrene, not specified as recurrent Status: Acute Assessment and Plan: Repair intact. Ambulating well with walker. Subjective Subjective Date/Time Seen: 08/27/24 11:37 Patient reports: no new complaints, feels better, pain is less and afebrile Exam Const: General: comfortable, alert, awake and thin Orientation/cons ciousness: patient oriented x3 GI: Inspection: non-distended, incision (Clean and dry, healing nicely) and other (Gastrostomy tube removed without difficulty) GI Palp: Yes Soft to palpation, No Tenderness to palpation present (GI) and No Guarding due to palpation present (GI) Auscultation: normal bowel sounds Objective Data Vital Signs Vital Signs: Vital Signs - 24 hr 08/26/24 15:22 08/26/24 20:10 08/26/24 20:13 Temperature 36.6 C 37.6 C Pulse Rate 88 85 85 Respiratory Rate 24 H 20 20 Blood Pressure 117/60 104/71 Pulse Oximetry 99 97 97 Oxygen Delivery Room Air 08/27/24 00:00 08/27/24 08:00 Temperature 36.8 C 37.1 C Pulse Rate 74 88 Respiratory Rate 20 16 Blood Pressure 112/47 L 119/58 L Pulse Oximetry 100 100 Oxygen Delivery Intake/Output Intake/Output: Intake & Output 08/24/24 08/25/24 08/26/24 08/27/24 23:59 23:59 23:59 23:59 Intake Total 1996 1200 940 540 Output Total 500 500 Balance 1497 700 940 540 Meds/Results Medications: Active Medications Generic Name Dose Route Start Last Admin Trade Name Freq PRN Reason Stop Dose Admin Acetaminophen 650 mg 08/18/24 13:39 08/22/24 10:11 Acetaminophen 325 Mg Tablet FEED TUBE 650 mg Q4H PRN Administration Mild Pain (1-3) or Fever Hydrocodone Bitart/Acetaminophen 1 tab 08/18/24 13:39 08/23/24 13:25 Hydrocodone/Acetaminophen (*Crx) 5-325 Mg Tablet FEED TUBE 1 tab Q4H PRN Administration Pain Rated 4-6 Albuterol/Ipratropium 3 ml 08/24/24 09:39 Ipratropium 0.5 Mg/Albuterol Sulfate 2.5 Mg Ampul.Neb 3 Ml INHALATION Q6HRT PRN Shortness Of Breath Alteplase, Recombinant 2 mg 08/21/24 20:01 08/21/24 20:22 Alteplase 2 Mg Vial (Cathflo) IV PUSH 2 mg ONCE PRN Administration Line Occlusion Bisacodyl 10 mg 08/18/24 14:02 08/23/24 17:48 Bisacodyl 10 Mg Suppository RECTAL 10 mg QAM PRN Administration Constipation Dextrose 12.5 gm 08/09/24 07:57 Dextrose 50% 25 Gm/50 Ml Syringe IV PUSH PRN PRN Hypoglycemia Protocol Enoxaparin Sodium 40 mg 08/05/24 09:00 08/27/24 09:18 Enoxaparin 40 Mg/0.4 Ml Syringe SUB-Q 40 mg DAILY MORGAN Administration Glucagon 1 mg 08/09/24 07:57 Glucagon For Inj 1 Mg Vial IM PRN PRN Hypoglycemia Protocol Glucose 15 gm 08/09/24 07:57 Glucose Oral Gel 15 Gm Of Glucse In 37.5 Gm Tube PO PRN PRN Hypoglycemia Protocol Dextrose 1,000 mls @ 100 mls/hr 08/09/24 07:57 Dextrose 5% 1,000 Ml IVPB PRN PRN Hypoglycemia Protocol Levetiracetam 500 mg 08/27/24 09:00 08/27/24 10:15 Levetiracetam 500 Mg Tablet PO 500 mg Q12HR MORGAN Administration Lidocaine 1 patch 08/04/24 10:25 08/27/24 09:19 Lidocaine 5% Patch TRANSDERM 1 patch DAILY MORGAN Administration Lidocaine 1 patch 08/15/24 09:00 08/27/24 09:19 Lidocaine 5% Patch TRANSDERM 1 patch DAILY MORGAN Administration Metoclopramide HCl 10 mg 08/24/24 11:30 08/27/24 06:07 Metoclopramide Hcl 10 Mg Tablet PO 10 mg ACHS MORGAN Administration Naloxone HCl 0.1 mg 08/08/24 05:45 Naloxone Hcl 0.4 Mg/Ml Vial IV PUSH Q2M PRN Opiate Reversal Ondansetron HCl 4 mg 08/03/24 15:38 08/15/24 20:54 Ondansetron Inj 4 Mg/2 Ml Vial IV PUSH 4 mg Q4H PRN Administration Nausea Pantoprazole Sodium 40 mg 08/24/24 21:00 08/27/24 09:18 Pantoprazole 40 Mg Tablet PO 40 mg Q12HR MORGAN Administration Phenytoin 150 mg 08/26/24 21:00 08/26/24 20:32 Phenytoin Susp 100 Mg/4 Ml Udc PO 08/31/24 12:00 150 mg HS MORGAN Administration Quetiapine Fumarate 25 mg 08/20/24 21:00 08/26/24 20:32 Quetiapine Fumarate 25 Mg Tablet PO 25 mg HS MORGAN Administration Sodium Chloride 20 ml 08/06/24 23:57 08/25/24 05:42 Central Line Flush IV PUSH 20 ml PRN PRN Administration after blood draws Sodium Chloride 10 ml 08/06/24 23:57 Central Line Flush IV PUSH PRN PRN with TPN bag changes Sodium Chloride 10 ml 08/07/24 06:00 08/27/24 05:24 Central Line Flush IV PUSH 10 ml Q8HR MORGAN Administration Sodium Chloride 20 ml 08/22/24 05:25 08/26/24 05:48 Central Line Flush IV PUSH 20 ml PRN PRN Administration after blood draws Sodium Chloride 10 ml 08/22/24 05:25 Central Line Flush IV PUSH PRN PRN with TPN bag changes Radiology Results: ITS Impressions Abdomen/Pelvis CT 08/08/24 06:07 Impression: Findings highly suspicious for extensive bowel ischemia, extensive small bowel and gastric pneumatosis and extensive portal venous gas. Extensive dilatation of small bowel loops and stomach with decompression of large bowel. Transition point not well delineated, but findings are highly suspicious for distal small bowel obstruction. NG tube tip at the GE junction. Further advancement of NG tube into the stomach is required for adequate placement. Small bilateral pleural effusions. Head CT 08/10/24 11:18 IMPRESSION: 1. Normal aging brain. Upper GI Series 08/10/24 13:27 IMPRESSION: Findings within the distal esophagus/proximal stomach for which prior fundoplication is suspected. Esophageal dysmotility and significant esophageal reflux is also detected. Chest X-Ray 08/15/24 10:10 IMPRESSION: Minimal opacification the right lung base suggestive of atelectasis versus pneumonia. Abdomen X-Ray 08/21/24 16:13 IMPRESSION: Significant gaseous distention of the colon. Contrast opacification of the rectum which is markedly distended. Percutaneous gastrostomy to the left of midline. Modified Barium Swallow 08/23/24 14:43 IMPRESSION: 1. Aspiration of thin liquids. 2. Please refer to the speech therapy report for recommendations. Labs Labs: Laboratory Results - last 24 hr 08/27/24 05:02 WBC 3.9 L RBC 2.68 L Hgb 9.1 L Hct 27.5 L MCV 102.6 H MCH 34.0 MCHC 33.1 RDW 15.8 H Plt Count 231 MPV 8.3 Sodium 135 L Potassium 3.6 Chloride 100 Carbon Dioxide 28 Anion Gap 7 BUN 16 Creatinine 0.42 L Estim Creat Clear Calc Not Reportable Estimated GFR > 60 Glucose 90 Calcium 8.3 L Total Bilirubin 0.2 AST 28 ALT 33 Alkaline Phosphatase 87 Total Protein 6.0 L Albumin 2.9 L
[2024-08-27 16:00] VITALS: BP 110/52; PULSE 88; RESP 16; TEMP 37; O2SAT 100
[2024-08-27 20:00] VITALS: PULSE 84; RESP 12; O2SAT 95
[2024-08-27 20:29] VITALS: BP 108/48; PULSE 84; RESP 12; TEMP 37.1; O2SAT 95
[2024-08-27] MEDS: QUEtiapine FUMARATE 25 MG TABLET PO (21:10)
[2024-08-27 22:00] VITALS: BP 110/48; PULSE 80; RESP 20; TEMP 37.6; O2SAT 97
[2024-08-28 05:15] VITALS: BP 117/48; PULSE 72; RESP 12; TEMP 36.2; O2SAT 100
[2024-08-28] MEDS: CENTRAL LINE FLUSH 10 ML IV PUSH ×3 (05:47→20:21)
[2024-08-28] MEDS: METOCLOPRAMIDE HCL 10 MG TABLET PO ×4 (05:47→20:20)
[2024-08-28] MEDS: CENTRAL LINE FLUSH 20 ML IV PUSH (05:48)
[2024-08-28 06:45] LABS: Hematocrit 28.7 % (37.0-47.0); Hemoglobin 9.3 g/dL (12.0-15.0); Mean Corpuscular HGB Conc 32.4 g/dl (32-36); Mean Corpuscular Hemoglobin 33.7 pg (26-34); Mean Platelet Volume 8.9 fl (7.4-10.4); Platelet Count Result 237 k/mm3 (150-375); Red Blood Count 2.76 M/mm3 (4.2-5.4); White Blood Count 4.2 K/mm3 (4.5-10.0)
[2024-08-28 07:00] LABS: Alanine Aminotransferase 33 U/L (6-35); Alkaline Phosphatase 96 U/L (38-126); Anion Gap 5 mmol/L (4-12); Aspartate Amino Transferase 28 U/L (14-36); Bilirubin,Total 0.3 mg/dL (0.2-1.3); Blood Urea Nitrogen 17 mg/dL (7-17); Calcium 8.6 mg/dL (8.4-10.2); Carbon Dioxide 29 mmol/L (22-30); Chloride 102 mmol/L (98-107); Estimated Glomerular Filt Rate > 60; Glucose 87 mg/dL (65-110); Potassium 3.5 mmol/L (3.4-5.0); Sodium 136 mmol/L (137-145)
[2024-08-28] MEDS: PANTOPRAZOLE 40 MG TABLET PO ×2 (08:16→20:20)
[2024-08-28] MEDS: levETIRAcetam 500 MG TABLET PO ×2 (08:17→20:20)
[2024-08-28] MEDS: LIDOCAINE 5% PATCH 1 PATCH TRANSDERM ×2 (08:23→08:24)
[2024-08-28] MEDS: ENOXAPARIN 40 MG/0.4 ML SYRINGE SUB-Q (08:23)
--- NOTE | 2024-08-28 09:12 | PM.IMPN ---
Progress Note: A&P Assessment and Plan (1) Small bowel obstruction: Code(s): K56.609 - Unspecified intestinal obstruction, unspecified as to partial versus complete obstruction Status: Acute Assessment and Plan: Patient has a prolonged hospitalization from 08/03-08/23 Events that happened during the hospitalization includes: 08/03 :Open incarcerated left femoral hernia repair without mesh 08/08 :Exploratory laparotomy, gastrostomy tube placement S/P EGD showed intact gastrostomy tube and gastritis 08/19:Bedside replacement of dislodged gastrostomy tube with Khanna catheter through existing tract. Status post 08/03 Open incarcerated left femoral hernia repair without mesh 08/08 Exploratory laparotomy, gastrostomy tube placement S/p EGD showed intact gastrostomy tube and gastritis 08/19:Bedside replacement of dislodged gastrostomy tube with Khanna catheter through existing tract. Status post Tube feeding advance diet per speech recs continue advancing diet as tolerated plan is to monitor this and re-eval on Thursday for discharge planning GI and GEN surgery following (2) Ileus, postoperative: Code(s): K91.89 - Other postprocedural complications and disorders of digestive system; K56.7 - Ileus, unspecified Status: Acute Assessment and Plan: Resolving Encouraging oral intake monitor (3) Incarcerated left inguinal hernia: Code(s): K40.30 - Unilateral inguinal hernia, with obstruction, without gangrene, not specified as recurrent Status: Acute Assessment and Plan: See above (4) EULALIO (acute kidney injury): Code(s): N17.9 - Acute kidney failure, unspecified Status: Acute Assessment and Plan: resolved (5) Sepsis: Code(s): A41.9 - Sepsis, unspecified organism Status: Acute Assessment and Plan: Completed Zosyn. UA was unremarkable 08/08: blood cultures are negative so far (6) Seizures: Code(s): R56.9 - Unspecified convulsions Status: Chronic Assessment and Plan: Continue Dilantin 150mg PO HS x 5 days Started Keppra 500 mg PO BID Follow up with OP her neurologist (7) Electrolyte abnormality: Code(s): E87.8 - Other disorders of electrolyte and fluid balance, not elsewhere classified Status: Acute Assessment and Plan: Replace potassium (8) Pulmonary edema: Code(s): J81.1 - Chronic pulmonary edema Status: Acute Assessment and Plan: Resolved Chest x-ray shows pulmonary edema. Elevated BNP Echo reviewed Discontinue Lasix Initially does started due to pulmonary edema which is resolved Echocardiogram shows 60-65% (9) Leukocytosis: Code(s): D72.829 - Elevated white blood cell count, unspecified Status: Acute Assessment and Plan: Resolved Status post iv zosyn and iv vancomycin added for possible aspiration pneumonia watch cultures Plan DVT prophylaxis on Sq lovenox Discharge planning from Thursday, advance oral diet Subjective Date/time seen: 08/28/24 09:12 Interval history: Will do anemia panel tomorrow.Doing well and eating 100% of meal. Review of Systems Review of Systems: SOB and wheezy lungs today All systems reviewed & are unremarkable except as noted in HPI and below (HPI) Exam Narrative: General: Frail elderly lady with NG tube in situ and tube feeds Lungs/Chest: BL wheezy lungs Cardiac: RRR. Normal S1 S2. No murmurs Circulation: Palpable pedal pulses, feet are warm Abdomen: Hypoactive bowel sound. Mild tenderness to palpation, gastrostomy tube in place, incision under dressing Extremities: No clubbing or cyanosis, bilateral edema present : Khanna in place Neurologic: Follows commands. Moves all 4 extremities PERRL AO x3 Skin: No Rash Const: General: comfortable and no acute distress Other: The patient is recumbent in a stretcher in the PACU. , female, elderly, modestly ill-appearing. +fatigue. HENMT: Face/Nose/Sinus: Normal nares present Mouth: Yes dry mucous membranes Other: NG in place. Eyes: General: appearance normal, both eyes and all related structures Sclera: sclerae normal Pupils: Equal, round and reactive pupils present EOM: EOMs intact bilaterally Resp: Effort & Inspection: normal respiratory effort Auscultation: clear to auscultation bilaterally Cardio: Rate: regular rate Rhythm: regular rhythm Other: S1-S2 present without murmur, rub, ectopy GI: Other: Abdomen firm, distended. bowel sounds present, Drain in place, serosanguineous output. Skin: General skin exam: normal color and no rashes or lesions noted Wounds: no wounds Neuro: Cranial nerves: Yes Equal, round and reactive pupils present Speech: normal speech Motor exam (neuro): 5/5 motor strength present throughout Sensory Exam: normal sensation Other: A&O x4, mildly somnolent. Extrem: General: normal to inspection Psych: Mental Status: mental status grossly normal Affect: normal affect Other: Good insight and judgment, pleasant Objective Data Vital Signs Vital Signs: Vital Signs - 24 hr 08/27/24 16:00 08/27/24 20:00 08/27/24 20:29 Temperature 98.6 F 98.7 F Pulse Rate 88 84 84 Respiratory Rate 16 12 12 Blood Pressure 110/52 L 108/48 L Pulse Oximetry 100 95 95 Oxygen Delivery Room Air Fraction of Inspired Oxygen 21 08/27/24 22:00 08/28/24 05:15 Temperature 99.6 F 97.1 F L Pulse Rate 80 72 Respiratory Rate 20 12 Blood Pressure 110/48 L 117/48 L Pulse Oximetry 97 100 Oxygen Delivery Fraction of Inspired Oxygen Intake/Output Intake/Output: Intake & Output 08/25/24 08/26/24 08/27/24 08/28/24 23:59 23:59 23:59 23:59 Intake Total 9309 542 1205 200 Output Total 500 Balance 253 852 2146 200 Meds/Results Medications: Active Medications Generic Name Dose Route Start Last Admin Trade Name Freq PRN Reason Stop Dose Admin Acetaminophen 650 mg 08/18/24 13:39 08/22/24 10:11 Acetaminophen 325 Mg Tablet FEED TUBE 650 mg Q4H PRN Administration Mild Pain (1-3) or Fever Hydrocodone Bitart/Acetaminophen 1 tab 08/18/24 13:39 08/23/24 13:25 Hydrocodone/Acetaminophen (*Crx) 5-325 Mg Tablet FEED TUBE 1 tab Q4H PRN Administration Pain Rated 4-6 Albuterol/Ipratropium 3 ml 08/24/24 09:39 Ipratropium 0.5 Mg/Albuterol Sulfate 2.5 Mg Ampul.Neb 3 Ml INHALATION Q6HRT PRN Shortness Of Breath Alteplase, Recombinant 2 mg 08/21/24 20:01 08/21/24 20:22 Alteplase 2 Mg Vial (Cathflo) IV PUSH 2 mg ONCE PRN Administration Line Occlusion Bisacodyl 10 mg 08/18/24 14:02 08/23/24 17:48 Bisacodyl 10 Mg Suppository RECTAL 10 mg QAM PRN Administration Constipation Dextrose 12.5 gm 08/09/24 07:57 Dextrose 50% 25 Gm/50 Ml Syringe IV PUSH PRN PRN Hypoglycemia Protocol Enoxaparin Sodium 40 mg 08/05/24 09:00 08/28/24 08:23 Enoxaparin 40 Mg/0.4 Ml Syringe SUB-Q 40 mg DAILY MORGAN Administration Glucagon 1 mg 08/09/24 07:57 Glucagon For Inj 1 Mg Vial IM PRN PRN Hypoglycemia Protocol Glucose 15 gm 08/09/24 07:57 Glucose Oral Gel 15 Gm Of Glucse In 37.5 Gm Tube PO PRN PRN Hypoglycemia Protocol Dextrose 1,000 mls @ 100 mls/hr 08/09/24 07:57 Dextrose 5% 1,000 Ml IVPB PRN PRN Hypoglycemia Protocol Levetiracetam 500 mg 08/27/24 09:00 08/28/24 08:17 Levetiracetam 500 Mg Tablet PO 500 mg Q12HR MORGAN Administration Lidocaine 1 patch 08/04/24 10:25 08/28/24 08:23 Lidocaine 5% Patch TRANSDERM 1 patch DAILY MORGAN Administration Lidocaine 1 patch 08/15/24 09:00 08/28/24 08:24 Lidocaine 5% Patch TRANSDERM 1 patch DAILY MORGAN Administration Metoclopramide HCl 10 mg 08/24/24 11:30 08/28/24 05:47 Metoclopramide Hcl 10 Mg Tablet PO 10 mg ACHS MORGAN Administration Naloxone HCl 0.1 mg 08/08/24 05:45 Naloxone Hcl 0.4 Mg/Ml Vial IV PUSH Q2M PRN Opiate Reversal Ondansetron HCl 4 mg 08/03/24 15:38 08/15/24 20:54 Ondansetron Inj 4 Mg/2 Ml Vial IV PUSH 4 mg Q4H PRN Administration Nausea Pantoprazole Sodium 40 mg 08/24/24 21:00 08/28/24 08:16 Pantoprazole 40 Mg Tablet PO 40 mg Q12HR MORGAN Administration Phenytoin 150 mg 08/26/24 21:00 08/27/24 21:10 Phenytoin Susp 100 Mg/4 Ml Udc PO 08/31/24 12:00 150 mg HS MORGAN Administration Quetiapine Fumarate 25 mg 08/20/24 21:00 08/27/24 21:10 Quetiapine Fumarate 25 Mg Tablet PO 25 mg HS MORGAN Administration Sodium Chloride 20 ml 08/06/24 23:57 08/28/24 05:48 Central Line Flush IV PUSH 20 ml PRN PRN Administration after blood draws Sodium Chloride 10 ml 08/06/24 23:57 Central Line Flush IV PUSH PRN PRN with TPN bag changes Sodium Chloride 10 ml 08/07/24 06:00 08/28/24 05:47 Central Line Flush IV PUSH 10 ml Q8HR MORGAN Administration Sodium Chloride 20 ml 08/22/24 05:25 08/26/24 05:48 Central Line Flush IV PUSH 20 ml PRN PRN Administration after blood draws Sodium Chloride 10 ml 08/22/24 05:25 Central Line Flush IV PUSH PRN PRN with TPN bag changes Radiology Results: ITS Impressions Abdomen/Pelvis CT 08/08/24 06:07 Impression: Findings highly suspicious for extensive bowel ischemia, extensive small bowel and gastric pneumatosis and extensive portal venous gas. Extensive dilatation of small bowel loops and stomach with decompression of large bowel. Transition point not well delineated, but findings are highly suspicious for distal small bowel obstruction. NG tube tip at the GE junction. Further advancement of NG tube into the stomach is required for adequate placement. Small bilateral pleural effusions. Head CT 08/10/24 11:18 IMPRESSION: 1. Normal aging brain. Upper GI Series 08/10/24 13:27 IMPRESSION: Findings within the distal esophagus/proximal stomach for which prior fundoplication is suspected. Esophageal dysmotility and significant esophageal reflux is also detected. Chest X-Ray 08/15/24 10:10 IMPRESSION: Minimal opacification the right lung base suggestive of atelectasis versus pneumonia. Abdomen X-Ray 08/21/24 16:13 IMPRESSION: Significant gaseous distention of the colon. Contrast opacification of the rectum which is markedly distended. Percutaneous gastrostomy to the left of midline. Modified Barium Swallow 08/23/24 14:43 IMPRESSION: 1. Aspiration of thin liquids. 2. Please refer to the speech therapy report for recommendations. Labs Labs: Laboratory Results - last 24 hr 08/28/24 05:46 WBC 4.2 L RBC 2.76 L Hgb 9.3 L Hct 28.7 L MCV 104.0 H MCH 33.7 MCHC 32.4 RDW 16.0 H Plt Count 237 MPV 8.9 Sodium 136 L Potassium 3.5 Chloride 102 Carbon Dioxide 29 Anion Gap 5 BUN 17 Creatinine 0.47 L Estim Creat Clear Calc Not Reportable Estimated GFR > 60 Glucose 87 Calcium 8.6 Total Bilirubin 0.3 AST 28 ALT 33 Alkaline Phosphatase 96 Total Protein 6.0 L Albumin 3.0 L Quality VTE Prophylaxis VTE prophylaxis: mechanical ordered Hospitalist MIPS Advance Care Plan I have confirmed that the patient's Advanced Care Plan is present, code status is documented, or surrogate decision maker is listed in patient medical record.: Yes Medication Reconciliation I have utilized all available resources to obtain, update and review the patients current medications (includes all prescriptions, OTC, herbals, cannabis, and nutritional supplements).: Yes
[2024-08-28 14:00] VITALS: BP 106/57; PULSE 93; RESP 18; TEMP 37.7; O2SAT 96
[2024-08-28 19:44] VITALS: BP 107/52; PULSE 96; RESP 17; TEMP 37.7; O2SAT 97
[2024-08-28 20:00] VITALS: PULSE 96; RESP 17; O2SAT 97
[2024-08-28 20:20] VITALS: TEMP 37.7
[2024-08-28] MEDS: QUEtiapine FUMARATE 25 MG TABLET PO (20:20)
[2024-08-28] MEDS: ACETAMINOPHEN 325 MG TABLET 650 MG FEED TUBE (20:20)
[2024-08-28 23:35] VITALS: TEMP 37.1
[2024-08-29 04:39] VITALS: BP 123/47; PULSE 80; RESP 17; TEMP 36.8; O2SAT 100
[2024-08-29 06:10] LABS: Hematocrit 27.1 % (37.0-47.0); Immature Reticulocyte Fraction 16.7 % (3.0-15.9); Mean Corpuscular HGB Conc 33.2 g/dl (32-36); Mean Corpuscular Hemoglobin 34.6 pg (26-34); Mean Corpuscular Volume 104.2 fl (80-100); Mean Platelet Volume 8.6 fl (7.4-10.4); Platelet Count Result 181 k/mm3 (150-375); Red Cell Distribution Width 15.4 % (11.5-14.5); Reticulocyte Hemoglobin Conten 35.3 pg (28.2-36.6); Reticulocyte Percent 5.38 % (0.7-4.3); Reticulocytes Absolute 0.14 10^6/uL (0.02-0.10); White Blood Count 5.4 K/mm3 (4.5-10.0)
[2024-08-29] MEDS: METOCLOPRAMIDE HCL 10 MG TABLET PO ×3 (06:12→20:38)
[2024-08-29] MEDS: CENTRAL LINE FLUSH 20 ML IV PUSH (06:12)
[2024-08-29] MEDS: CENTRAL LINE FLUSH 10 ML IV PUSH ×3 (06:12→20:42)
[2024-08-29 06:40] LABS: Iron 26 ug/dL (37-170)
[2024-08-29 06:41] LABS: Alanine Aminotransferase 30 U/L (6-35); Alkaline Phosphatase 89 U/L (38-126); Anion Gap 4 mmol/L (4-12); Aspartate Amino Transferase 26 U/L (14-36); Bilirubin,Total 0.4 mg/dL (0.2-1.3); Blood Urea Nitrogen 14 mg/dL (7-17); Calcium 8.4 mg/dL (8.4-10.2); Carbon Dioxide 28 mmol/L (22-30); Chloride 101 mmol/L (98-107); Estimated Glomerular Filt Rate > 60; Glucose 96 mg/dL (65-110); Lactate Dehydrogenase 169 U/L (120-246); Potassium 3.6 mmol/L (3.4-5.0); Sodium 133 mmol/L (137-145)
[2024-08-29 06:50] LABS: Percent Iron Saturation 11 % (20-50)
[2024-08-29 07:00] LABS: Transferrin 139 mg/dL (206-381)
[2024-08-29 07:50] LABS: Folic Acid 7.7 ng/mL (2.76->20)
[2024-08-29] MEDS: LIDOCAINE 5% PATCH 1 PATCH TRANSDERM ×2 (08:34)
[2024-08-29] MEDS: PANTOPRAZOLE 40 MG TABLET PO ×2 (08:34→20:38)
[2024-08-29] MEDS: ENOXAPARIN 40 MG/0.4 ML SYRINGE SUB-Q (08:34)
[2024-08-29] MEDS: levETIRAcetam 500 MG TABLET PO ×2 (08:34→20:38)
--- NOTE | 2024-08-29 09:28 | PCNFU ---
Nutrition Follow-Up Complete: Altered GI function as related to SBO/Ileus as evidenced by TPN. Meet estimated nutritional needs. -Progressing with PO intake Goal: Pt current nutrition is Puree diet with moderately thick L2 liquids. Ensure Enlive BID (350 kcal, 20 g protein) and nutritional ice cream BID (27 kcal, 9 g protein) between meals. Nutrition recommendation: No new recommendations. Continue current nutrition care plan and orders. Agree with orders Last recorded weight is 49.1 kg. Bowel Motility: +2 BMs 08/27/24 Labs Reviewed: Hgb9.0, Hct 27.1, Alb 3.0, Na 133, Cre 0.4 Meds Noted: Protonix, zosyn, lovenox Skin: WNL Additional Notes: Intakes are progressing on puree diet. 80% breakfast this morning. Continue with current orders. Will monitor weight, labs, skin, diet orders, meds every Thursday and Thursday.
[2024-08-29 14:00] VITALS: BP 118/54; PULSE 101; RESP 18; TEMP 36.9; O2SAT 100
[2024-08-29 14:00] LABS: Add Urine Microscopic? YES; Appearance Urine Cloudy (Clear); Bacteria Urine None Seen /hpf; Bilirubin Urine Negative (Negative); Blood Urine Negative (Negative); Calcium Oxalate Crystals Urine Present /hpf; Color Urine Dark Yellow (Yellow); Glucose Urine UA Negative (Negative); Ketones Urine Trace mg/dL (Negative); Leukocyte Esterase Ur Negative LEU/UL (Negative); Mucus Urine Present /lpf; Need Manual Microscopic Reviewed; Nitrate Urine Negative (Negative); Protein Urine 1+ mg/dL (Negative); Specific Grav Ur 1.027 (1.001-1.035); Squamous Epithelial Cell Urine Occasional /hpf (Few); WBC Urine 0-5 /hpf (0-3); pH Urine 5.5 (5.0-9.0)
--- NOTE | 2024-08-29 15:04 | PM.IMPN ---
Progress Note: A&P Assessment and Plan (1) Small bowel obstruction: Code(s): K56.609 - Unspecified intestinal obstruction, unspecified as to partial versus complete obstruction Status: Acute Assessment and Plan: Patient has a prolonged hospitalization from 08/03-08/23 Events that happened during the hospitalization includes: 08/03 :Open incarcerated left femoral hernia repair without mesh 08/08 :Exploratory laparotomy, gastrostomy tube placement S/P EGD showed intact gastrostomy tube and gastritis 08/19:Bedside replacement of dislodged gastrostomy tube with Khanna catheter through existing tract. Status post 08/03 Open incarcerated left femoral hernia repair without mesh 08/08 Exploratory laparotomy, gastrostomy tube placement S/p EGD showed intact gastrostomy tube and gastritis 08/19:Bedside replacement of dislodged gastrostomy tube with Khanna catheter through existing tract. Status post Tube feeding advance diet per speech recs continue advancing diet as tolerated plan is to monitor this and re-eval on Thursday for discharge planning GI and GEN surgery following (2) Ileus, postoperative: Code(s): K91.89 - Other postprocedural complications and disorders of digestive system; K56.7 - Ileus, unspecified Status: Acute Assessment and Plan: Resolving Encouraging oral intake monitor (3) Incarcerated left inguinal hernia: Code(s): K40.30 - Unilateral inguinal hernia, with obstruction, without gangrene, not specified as recurrent Status: Acute Assessment and Plan: See above (4) EULALIO (acute kidney injury): Code(s): N17.9 - Acute kidney failure, unspecified Status: Acute Assessment and Plan: resolved (5) Sepsis: Code(s): A41.9 - Sepsis, unspecified organism Status: Acute Assessment and Plan: Completed Zosyn. UA was unremarkable 08/08: blood cultures are negative so far (6) Seizures: Code(s): R56.9 - Unspecified convulsions Status: Chronic Assessment and Plan: Continue Dilantin 150mg PO HS x 5 days Started Keppra 500 mg PO BID Follow up with OP her neurologist who agrees with the plan. (7) Electrolyte abnormality: Code(s): E87.8 - Other disorders of electrolyte and fluid balance, not elsewhere classified Status: Acute Assessment and Plan: Replace potassium (8) Pulmonary edema: Code(s): J81.1 - Chronic pulmonary edema Status: Acute Assessment and Plan: Resolved Chest x-ray shows pulmonary edema. Elevated BNP Echo reviewed Discontinue Lasix Initially does started due to pulmonary edema which is resolved Echocardiogram shows 60-65% (9) Leukocytosis: Code(s): D72.829 - Elevated white blood cell count, unspecified Status: Acute Assessment and Plan: Resolved Status post iv zosyn and iv vancomycin added for possible aspiration pneumonia watch cultures Plan DVT prophylaxis on Sq lovenox Discharge planning from Thursday, advance oral diet Subjective Date/time seen: 08/29/24 15:04 Interval history: Patient has a prolonged hospitalization from 08/03-08/23 Events that happened during the hospitalization includes: 08/03 :Open incarcerated left femoral hernia repair without mesh 08/08 :Exploratory laparotomy, gastrostomy tube placement S/P EGD showed intact gastrostomy tube and gastritis 08/19:Bedside replacement of dislodged gastrostomy tube with Khanna catheter through existing tract. 08/29: patient had mild temperature yesterday night. Patient will be discharged to [facility] possibly tomorrow. Orde CXR,UA and BC. CXR shows Mild scarring at the lung apices. Review of Systems Review of Systems: SOB and wheezy lungs today All systems reviewed & are unremarkable except as noted in HPI and below (HPI) Exam Narrative: General: Frail elderly lady with NG tube in situ and tube feeds Lungs/Chest: BL wheezy lungs Cardiac: RRR. Normal S1 S2. No murmurs Circulation: Palpable pedal pulses, feet are warm Abdomen: Hypoactive bowel sound. Mild tenderness to palpation, gastrostomy tube in place, incision under dressing Extremities: No clubbing or cyanosis, bilateral edema present : Khanna in place Neurologic: Follows commands. Moves all 4 extremities PERRL AO x3 Skin: No Rash Const: General: comfortable and no acute distress Other: The patient is recumbent in a stretcher in the PACU. , female, elderly, modestly ill-appearing. +fatigue. HENMT: Face/Nose/Sinus: Normal nares present Mouth: Yes dry mucous membranes Other: NG in place. Eyes: General: appearance normal, both eyes and all related structures Sclera: sclerae normal Pupils: Equal, round and reactive pupils present EOM: EOMs intact bilaterally Resp: Effort & Inspection: normal respiratory effort Auscultation: clear to auscultation bilaterally Cardio: Rate: regular rate Rhythm: regular rhythm Other: S1-S2 present without murmur, rub, ectopy GI: Other: Abdomen firm, distended. bowel sounds present, Drain in place, serosanguineous output. Skin: General skin exam: normal color and no rashes or lesions noted Wounds: no wounds Neuro: Cranial nerves: Yes Equal, round and reactive pupils present Speech: normal speech Motor exam (neuro): 5/5 motor strength present throughout Sensory Exam: normal sensation Other: A&O x4, mildly somnolent. Extrem: General: normal to inspection Psych: Mental Status: mental status grossly normal Affect: normal affect Other: Good insight and judgment, pleasant Objective Data Vital Signs Vital Signs: Vital Signs - 24 hr 08/28/24 19:44 08/28/24 20:00 08/28/24 20:20 Temperature 99.8 F H 99.8 F H Pulse Rate 96 96 Respiratory Rate 17 17 Blood Pressure 107/52 L Pulse Oximetry 97 97 Oxygen Delivery Room Air Fraction of Inspired Oxygen 21 08/28/24 23:35 08/29/24 04:39 08/29/24 08:30 Temperature 98.7 F 98.2 F Pulse Rate 80 Respiratory Rate 17 Blood Pressure 123/47 L Pulse Oximetry 100 Oxygen Delivery Room Air Fraction of Inspired Oxygen 08/29/24 14:00 Temperature 98.4 F Pulse Rate 101 H Respiratory Rate 18 Blood Pressure 118/54 L Pulse Oximetry 100 Oxygen Delivery Fraction of Inspired Oxygen Intake/Output Intake/Output: Intake & Output 08/26/24 08/27/24 08/28/24 08/29/24 23:59 23:59 23:59 23:59 Intake Total 940 1260 1160 300 Balance 940 1260 1160 300 Meds/Results Medications: Active Medications Generic Name Dose Route Start Last Admin Trade Name Freq PRN Reason Stop Dose Admin Acetaminophen 650 mg 08/18/24 13:39 08/28/24 20:20 Acetaminophen 325 Mg Tablet FEED TUBE 650 mg Q4H PRN Administration Mild Pain (1-3) or Fever Albuterol/Ipratropium 3 ml 08/24/24 09:39 Ipratropium 0.5 Mg/Albuterol Sulfate 2.5 Mg Ampul.Neb 3 Ml INHALATION Q6HRT PRN Shortness Of Breath Alteplase, Recombinant 2 mg 08/21/24 20:01 08/21/24 20:22 Alteplase 2 Mg Vial (Cathflo) IV PUSH 2 mg ONCE PRN Administration Line Occlusion Bisacodyl 10 mg 08/18/24 14:02 08/23/24 17:48 Bisacodyl 10 Mg Suppository RECTAL 10 mg QAM PRN Administration Constipation Dextrose 12.5 gm 08/09/24 07:57 Dextrose 50% 25 Gm/50 Ml Syringe IV PUSH PRN PRN Hypoglycemia Protocol Enoxaparin Sodium 40 mg 08/05/24 09:00 08/29/24 08:34 Enoxaparin 40 Mg/0.4 Ml Syringe SUB-Q 40 mg DAILY MORGAN Administration Glucagon 1 mg 08/09/24 07:57 Glucagon For Inj 1 Mg Vial IM PRN PRN Hypoglycemia Protocol Glucose 15 gm 08/09/24 07:57 Glucose Oral Gel 15 Gm Of Glucse In 37.5 Gm Tube PO PRN PRN Hypoglycemia Protocol Dextrose 1,000 mls @ 100 mls/hr 08/09/24 07:57 Dextrose 5% 1,000 Ml IVPB PRN PRN Hypoglycemia Protocol Levetiracetam 500 mg 08/27/24 09:00 08/29/24 08:34 Levetiracetam 500 Mg Tablet PO 500 mg Q12HR MORGAN Administration Lidocaine 1 patch 08/04/24 10:25 08/29/24 08:34 Lidocaine 5% Patch TRANSDERM 1 patch DAILY MORGAN Administration Lidocaine 1 patch 08/15/24 09:00 08/29/24 08:34 Lidocaine 5% Patch TRANSDERM 1 patch DAILY MORGAN Administration Metoclopramide HCl 10 mg 08/24/24 11:30 08/29/24 12:41 Metoclopramide Hcl 10 Mg Tablet PO Not Given ACHS MORGAN Naloxone HCl 0.1 mg 08/08/24 05:45 Naloxone Hcl 0.4 Mg/Ml Vial IV PUSH Q2M PRN Opiate Reversal Ondansetron HCl 4 mg 08/03/24 15:38 08/15/24 20:54 Ondansetron Inj 4 Mg/2 Ml Vial IV PUSH 4 mg Q4H PRN Administration Nausea Pantoprazole Sodium 40 mg 08/24/24 21:00 08/29/24 08:34 Pantoprazole 40 Mg Tablet PO 40 mg Q12HR MORGAN Administration Phenytoin 150 mg 08/26/24 21:00 08/28/24 20:20 Phenytoin Susp 100 Mg/4 Ml Udc PO 08/31/24 12:00 150 mg HS MORGAN Administration Quetiapine Fumarate 25 mg 08/20/24 21:00 08/28/24 20:20 Quetiapine Fumarate 25 Mg Tablet PO 25 mg HS MORGAN Administration Sodium Chloride 20 ml 08/06/24 23:57 08/29/24 06:12 Central Line Flush IV PUSH 20 ml PRN PRN Administration after blood draws Sodium Chloride 10 ml 08/06/24 23:57 Central Line Flush IV PUSH PRN PRN with TPN bag changes Sodium Chloride 10 ml 08/07/24 06:00 08/29/24 12:42 Central Line Flush IV PUSH 10 ml Q8HR MORGAN Administration Sodium Chloride 20 ml 08/22/24 05:25 08/26/24 05:48 Central Line Flush IV PUSH 20 ml PRN PRN Administration after blood draws Sodium Chloride 10 ml 08/22/24 05:25 Central Line Flush IV PUSH PRN PRN with TPN bag changes Radiology Results: ITS Impressions Abdomen/Pelvis CT 08/08/24 06:07 Impression: Findings highly suspicious for extensive bowel ischemia, extensive small bowel and gastric pneumatosis and extensive portal venous gas. Extensive dilatation of small bowel loops and stomach with decompression of large bowel. Transition point not well delineated, but findings are highly suspicious for distal small bowel obstruction. NG tube tip at the GE junction. Further advancement of NG tube into the stomach is required for adequate placement. Small bilateral pleural effusions. Head CT 08/10/24 11:18 IMPRESSION: 1. Normal aging brain. Upper GI Series 08/10/24 13:27 IMPRESSION: Findings within the distal esophagus/proximal stomach for which prior fundoplication is suspected. Esophageal dysmotility and significant esophageal reflux is also detected. Abdomen X-Ray 08/21/24 16:13 IMPRESSION: Significant gaseous distention of the colon. Contrast opacification of the rectum which is markedly distended. Percutaneous gastrostomy to the left of midline. Modified Barium Swallow 08/23/24 14:43 IMPRESSION: 1. Aspiration of thin liquids. 2. Please refer to the speech therapy report for recommendations. Chest X-Ray 08/29/24 14:00 IMPRESSION: 1. Mild scarring at the lung apices. Labs Labs: Laboratory Results - last 24 hr 08/29/24 08/29/24 05:58 13:39 WBC 5.4 RBC 2.60 L Hgb 9.0 L Hct 27.1 L MCV 104.2 H MCH 34.6 H MCHC 33.2 RDW 15.4 H Plt Count 181 MPV 8.6 Absolute Retic 0.14 H Percent Retic 5.38 H Immature Retic Fraction 16.7 H Retic Hgb Content 35.3 Sodium 133 L Potassium 3.6 Chloride 101 Carbon Dioxide 28 Anion Gap 4 BUN 14 Creatinine 0.40 L Estim Creat Clear Calc Not Reportable Estimated GFR > 60 Glucose 96 Calcium 8.4 Iron 26 L TIBC 231 L % Saturation 11 L Transferrin 139 L Ferritin 88.40 Total Bilirubin 0.4 AST 26 ALT 30 Alkaline Phosphatase 89 Lactate Dehydrogenase 169 Total Protein 6.0 L Albumin 3.0 L Vitamin B12 641.0 Folate 7.7 Urine Color Dark yellow Urine Appearance Cloudy H Urine pH 5.5 Ur Specific Alexander 1.027 Urine Protein 1+ H Urine Glucose (UA) Negative Urine Ketones Trace H Ur Blood (Man) Negative Urine Nitrate Negative Urine Bilirubin Negative Urine Urobilinogen 1.0 Ur Leukocyte Esterase Negative Add Ur Microanalysis Reviewed Urine RBC 3-5 H Urine WBC 0-5 Ur Squamous Epith Cells Occasional Calcium Oxalate Crystal Present Urine Bacteria None seen Urine Casts 3-5 Urine Mucus Present LUAN, Poly Interpret Negative LUAN, Complement Interp Not Performed Quality VTE Prophylaxis VTE prophylaxis: mechanical ordered Hospitalist MIPS Advance Care Plan I have confirmed that the patient's Advanced Care Plan is present, code status is documented, or surrogate decision maker is listed in patient medical record.: Yes Medication Reconciliation I have utilized all available resources to obtain, update and review the patients current medications (includes all prescriptions, OTC, herbals, cannabis, and nutritional supplements).: Yes
[2024-08-29 19:53] VITALS: BP 112/52; PULSE 90; RESP 18; TEMP 36.4; O2SAT 98
[2024-08-29] MEDS: QUEtiapine FUMARATE 25 MG TABLET PO (20:38)
[2024-08-30 02:48] LABS: Haptoglobin 219 mg/dL (43-212)
[2024-08-30 05:04] VITALS: BP 101/49; PULSE 76; RESP 16; TEMP 36.7; O2SAT 96
[2024-08-30] MEDS: METOCLOPRAMIDE HCL 10 MG TABLET PO ×2 (05:04→11:38)
[2024-08-30] MEDS: CENTRAL LINE FLUSH 10 ML IV PUSH (05:08)
[2024-08-30] MEDS: LIDOCAINE 5% PATCH 1 PATCH TRANSDERM ×2 (08:58→08:59)
[2024-08-30] MEDS: levETIRAcetam 500 MG TABLET PO (08:59)
[2024-08-30] MEDS: ASCORBIC ACID 500 MG TABLET PO (08:59)
[2024-08-30] MEDS: ENOXAPARIN 40 MG/0.4 ML SYRINGE SUB-Q (08:59)
[2024-08-30] MEDS: PANTOPRAZOLE 40 MG TABLET PO (09:00)
--- NOTE | 2024-08-30 10:17 | P.DS_ITS ---
DS: Admitting Diagnosis Discharge Date 08/30/24 Admitting Diagnosis Abdominal Pain DS: Discharge Diagnosis Discharge Diagnosis (1) Shock: Code(s): R57.9 - Shock, unspecified Status: Acute (2) Small bowel obstruction: Code(s): K56.609 - Unspecified intestinal obstruction, unspecified as to partial versus complete obstruction Status: Acute DS: Summary Hospital Course Hospital Course: 69 y/o F presents here with abdominal pain with PMH of seizures, migraines, nontoxic thyroid nodules, and arthritis. The patient presents here on 08/03 from home for further evaluation of abdominal pain. The patient reports onset of nausea, vomiting, and chills on Thursday (07/31). She then developed back pain affecting her mid and lower back. The back pain prompted her to seek care. She initially sought care at [facility] where a XR was obtained which showed moderate gaseous distention of her stomach. Recommendation was made for further imaging and the patient was sent here for further evaluation. She denies any history of abdominal surgeries or bowel obstructions. She reports her last bowel movement was on Thursday, 07/31. Postop she is denying significant abdominal pain, nausea, vomiting, fever, chills, or body aches. Initial VS at presentation: 98? F, HR 96, RR 20, 150/86, and 99% on RA. ED workup showed: WBC 15.7, no anemia, sodium 132, creatinine 1.34 and GFR 39 (previously 0.63 and GFR 95 on 09/24/2023), lactic 2.2, initial troponin negative, mild bump in LFTs, lipase 934. CT of the abdomen/pelvis showed a left inguinal hernia containing small bowel with small bowel obstruction and a right inguinal hernia containing ascites. Surgery was consulted and patient underwent Exploratory laparotomy, gastrostomy and tube placement and also open incarcerated left femoral hernia repair without mech. Patient has ileus and was initially on tube feeds with Reglan. Patient now transitioning to PO intake. ileus resolved Also managed for Robert and sepsis from Possible Pneumonia. Robert resolved and patient completed antibiotics. Cultures were unremarkable. Also managed for iron deficiency anemia. Isat 11 and hb 9.0. given 400mg IV iron and discharged on PO Iron Patient discharged to [facility]. F/u with PCP in 3-5 days Continue follow up with [facility] surgery as instructed Time Spent with Patient Time attestation: Total time spent providing and/or coordinating discharge services: DS: Data Data Completed and Pending Completed studies during hospitalization: Pending at discharge 08/12/24 15:59 Surgical [PTH] Routine Labs on day of discharge: Labs from last 24 hours 08/29/24 08/29/24 13:39 05:58 Haptoglobin 219 H Urine Color Dark yellow Urine Appearance Cloudy H Urine pH 5.5 Ur Specific [place] 1.027 Urine Protein 1+ H Urine Glucose (UA) Negative Urine Ketones Trace H Ur Blood (Man) Negative Urine Nitrate Negative Urine Bilirubin Negative Urine Urobilinogen 1.0 Ur Leukocyte Esterase Negative Add Ur Microanalysis Reviewed Urine RBC 3-5 H Urine WBC 0-5 Ur Squamous Epith Cells Occasional Calcium Oxalate Crystal Present Urine Bacteria None seen Urine Casts 3-5 Urine Mucus Present Discharge Plan Discharge Attending physician on discharge: Deshawn Walden Consulting providers: Matthias Jett Discharging Clinician: Deshawn Walden Anticipated Discharge Date/Time: 08/30/24 10:12 Patient Disposition: [facility] Activity: as tolerated Diet: as tolerated and regular Patient Instructions: Inguinal Hernia (GEN) Patient Language: Puerto Rican Follow-up/Referrals: Annelise Vaz MD [Primary Care Provider] - (F/u with PCP in 3-5 days ) Matthias Jett MD [Physician] - (F/u with Surgery as instructed ) Discharge Medications: New metoclopramide HCl [Reglan] 10 mg Tablet 10 mg PO ACHS 30 Days Qty: 120 1RF levetiracetam [Keppra] 500 mg Tablet 500 mg PO Q12HR 30 Days Qty: 60 1RF ascorbic acid (vitamin C) [Vitamin C] 500 mg Tablet 500 mg PO QAM 30 Days Qty: 30 0RF ferrous sulfate 325 mg (65 mg iron) Tablet,Delayed Release (Dr/Ec) 325 mg PO DAILY 30 Days Qty: 30 1RF Continued multivitamin Tablet 1 tablet PO DAILY triamcinolone acetonide 0.1 % cream 1 applic topical BID Qty: 15 0RF phenytoin [Dilantin Infatabs] 50 mg tablet,chewable 50 mg PO QPM Qty: 30 2RF Rx Instructions: Takes 50 mg Infatab in evening with 100 mg capsule phenytoin sodium extended [Dilantin Extended] 100 mg capsule 100 mg PO .COMPLEX Qty: 180 0RF Patient Comments: Prescribed by Dr. Foss Head Rx Instructions: 100 mg orally in the morning and 150mg in the evening. ondansetron HCl 8 mg tablet 8 mg PO Q8H PRN (Reason: nausea and vomiting) 3 Days Qty: 10 0RF Date of admission: 08/03/24 15:59 Primary Care Provider: Annelise Vaz Admitting Provider: Timbo Lund Attending physician on admission: Deshawn Walden Condition: Stable
[2024-08-30] MEDS: IRON SUCROSE COMPLEX 400 MG in SODIUM CHLORIDE 0.9% IV 250 ML 108 MG IVPB (11:08)
[2024-08-30 14:00] VITALS: BP 113/51; PULSE 84; RESP 16; TEMP 36.6; O2SAT 100
[2024-08-31 12:08] LABS: Soluble Transferrin Receptor 1.13 mg/L (0.76-1.76)
== END 2024-08-30 14:17 | DRG 326 ==
LOC: ANHED 15:33 → ANH3MEDSUR 15:50 → ANH3MED 16:02 → ANHIMU 22:04 → ANHICU 08-08 03:43 → ANH2MED 08-12 14:42
PROVIDERS: Family Medicine; General Practice; Internal Medicine; Internal Medicine Gastroenterology; Nurse Practitioner Family; Nurse Practitioner Gerontology; Physician Assistant; Student in an Organized Health Care Education/Training Program; Surgery; Admitting Provider Hospitalist; Emergency Provider Physician Assistant; PCP Family Medicine; Visit Provider Internal Medicine
PROC: 0YQ80ZZ Repair Left Femoral Region, Open Approach (ICD-10-PCS; principal; 2024-08-03 17:30)
PROC: 0D9600Z Drainage of Stomach with Drainage Device, Open Approach (ICD-10-PCS; CPT 49000; principal; 2024-08-08 13:45)
PROC: 0DJ08ZZ Inspection of Upper Intestinal Tract, Via Natural or Artificial Opening Endoscopic (ICD-10-PCS; principal; 2024-08-12 14:00)
DX: K41.30 Unilateral femoral hernia, with obstruction, without gangrene, not specified as recurrent (principal); A41.9 Sepsis, unspecified organism; R65.21 Severe sepsis with septic shock; J18.9 Pneumonia, unspecified organism; J69.0 Pneumonitis due to inhalation of food and vomit; J81.1 Chronic pulmonary edema; K31.1 Adult hypertrophic pyloric stenosis; N17.9 Acute kidney failure, unspecified; K91.89 Other postprocedural complications and disorders of digestive system; K56.7 Ileus, unspecified; M79.A3 Nontraumatic compartment syndrome of abdomen; E46 Unspecified protein-calorie malnutrition; J95.89 Other postprocedural complications and disorders of respiratory system, not elsewhere classified; Z43.1 Encounter for attention to gastrostomy; R18.8 Other ascites; K40.90 Unilateral inguinal hernia, without obstruction or gangrene, not specified as recurrent; E04.1 Nontoxic single thyroid nodule; M19.90 Unspecified osteoarthritis, unspecified site; R56.9 Unspecified convulsions; D70.3 Neutropenia due to infection; E87.6 Hypokalemia; K29.70 Gastritis, unspecified, without bleeding; K22.4 Dyskinesia of esophagus; D50.9 Iron deficiency anemia, unspecified; Z68.24 Body mass index [BMI] 24.0-24.9, adult
CPT/HCPCS: 36415; 36569; 36600; 70450; 71045; 74018; 74176; 74177; 74240; 80048; 80053; 80185; 80202; 81001; 82607; 82728; 82746; 82805; 82948; 83010; 83540; 83550; 83605; 83615; 83690; 83735; 83880; 84100; 84132; 84145; 84238; 84466; 84478; 84484; 85014; 85018; 85025; 85027; 85046; 85055; 85610; 85730; 86850; 86880; 86900; 86901; 87040; 87086; 87641; 88305; 92526; 92611; 93005; 93306; 94640; 96361; 96365; 96375; 96376; 97110; 97161; 97164; 97166; 97530; 97535; 99285; A9270; C1726; C1751; J0330; J0613; J1100; J1165; J1171; J1644; J1650; J1720; J1741; J1756; J1836; J1940; J2003; J2004; J2060; J2250; J2270; J2405; J2470; J2543; J2704; J2765; J2997; J3010; J3475; J3480; J7030; J7040; J7042; J7050; J7120; P9041; P9047; Q9967

== ENCOUNTER 2024-10-07 14:51 | Outpatient (CLI) | payer MEDICARE, OTHER, SELFPAY ==
--- NOTE | ~2024-10-07 | US_ITS ---
EXAMINATION: US venous doppler [facility] DATE: 10/07/2024 15:22 INDICATION: Left lower extremity swelling TECHNIQUE: Grayscale ultrasound images without and with compression and Doppler ultrasound images of the left lower extremity veins were obtained. COMPARISON: None. FINDINGS: The visualized portions of the left peroneal veins, posterior tibial veins and greater saphenous vein outflow are patent. Noncompressibility and absence of flow is present within the left common femoral vein, profunda (deep ) femoral vein, femoral vein and popliteal vein. IMPRESSION: Extensive left lower extremity deep venous thrombosis. Further interrogation of the right lower extremity is recommended. Reviewed, dictated and finalized at location A.
--- OUTSIDE RECORDS SUMMARY | 2024-10-07 14:54 | XMS_ITS | Clinical Summary ---
Author Organization [facility] Address [address] [place] [address] Care Team Providers Care Film Reproducer Name Role Phone Unavailable Primary Care Provider Unavailabl e Source Comments [facility],non-owned Affiliates and Associated Physician Practices is amultiple site organization consisting of ambulatory clinics and hospital sitesin [place], [place], [place] and [place]. This disclosure is being madepursuant to the Care Everywhere program and may not contain all information available regarding this patient. Last updated 18.[facility] [employer] Allergies No known active allergies Medications * Be aware that medications may not be up to date on this document. Alwaysverify current medications with the patient. 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 Gender Identity Not on file Sexual Orientation [...] 2003 SCREENING FOR DIABETES 09/09/2018 COVID-19 VACCINE (1 - 2023-2 5 season) 2024 DEPRESSION SCREENING 06/01/2024 INFLUENZA VACCINE (Season Ended) 2025 Respiratory Syncytial Virus (RSV) Vaccine Pt: or [...] to complete this topic MENINGOCOCCAL (Group B) VACC INE SHARED DECISION-MAKING Aged Out No longer eligibl e based on patient's age to complete this topic MENINGOCOCCAL GROUPS A/C/Y/W VACCINE Aged Out No longer eligible b ased on patient's age to complete this topic Insurance MEDICARE MEDICARE [facility] SELF PAY NO INSURANCE Member Subscriber Plan / Payer (Ef fective for All Dates) Name:Orquidea Herron Member ID:Not on file Relation to Subscriber:Not on file Name:ORQUIDEA HERRON Subscriber ID:Not on file (Home) Address: [place] [address] Payer ID:Not on file Group ID:Not on file Type:Self Pay Address: [place], [place] MEDICARE
--- OUTSIDE RECORDS SUMMARY | 2024-10-07 14:55 | XMS_ITS | Clinical Summary ---
Author Organization [facility] Address [address] [place] [address] Phone Care Team Providers Care Closet Builder Name Role Phone Annelise Vaz MD Primary Care Provider [phone] Allergies No known active allergies Medications phenytoin (DILANTIN INFATAB) 50 mg Tablet, ChewableIndicati ons:Nonintractab le epilepsy without status epilepticus, unspecified epilepsy type (CMS/HCC),Seizur e disorder (CMS/HCC) Take 3 Tablets (150 mg) by mouth daily at bedtime. 90 Tablet 1 5 Active ascorbic acid, vitamin C, (VITAMIN C) 1,000 mg Tablet Take 1,000 mg by mouth daily. Active multivitamin (DAILY-JUAN) tablet Take 1 Tablet by mouth daily. Active ferrous gluconate 324 mg (38 mg iron) tablet Take 324 mg by mouth. Active sennosides-docus ate sodium (SENNA-S) 8.6-50 mg tablet Take 2 Tablets by mouth 2 times daily. Active levETIRAcetam (Keppra) 500 mg tabletIndication s:Seizure disorder (CMS/HCC),Nonint ractable epilepsy without status epilepticus, unspecified epilepsy type (CMS/HCC) Take 1.5 Tablets (750 mg) by mouth 2 times daily. 90 Tablet 3 5 Active Dilantin Extended 100 mg extended release capsule Take 1 Capsule (100 mg) by mouth 2 times daily. 180 Capsule 3 4 09/14/19 25 Discontinue d(Alternate therapy prescribed) phenytoin (Dilantin Infatabs) 50 mg Tablet, Chewable Take 1 Tablet (50 mg) by mouth daily. 90 Tablet 3 4 09/14/19 25 Discontinue d(Alternate therapy prescribed) levETIRAcetam (Keppra) 500 mg tabletIndication s:Nonintractable epilepsy without status epilepticus, unspecified epilepsy type (CMS/HCC),Seizur e disorder (CMS/HCC) Take 1 Tablet (500 mg) by mouth 2 times daily. 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 status epilepticus, unspecified epilepsy type ([facility]/HCC) 09/27/2024 Telephone [facility] [address] [place] [phone] Elsa Alfaro MD Lab Results 09/26/2024 9:30 AM CDT Office Visit [facility] [address] [place] [phone] Elsa Alfaro MD Nonintractable epilepsy without status epilepticus, unspecified epilepsy type ([facility]/HCC) (Primary Dx) 09/23/2024 Abstract [facility] [address] [place] [phone] Elsa Alfaro MD 09/22/2024 Telephone [facility] [address] [place] [phone] Elsa Alfaro MD lab request 09/19/2024 Telephone [facility] [address] [place] [phone] Elsa Alfaro MD Medication Question 09/16/2024 Abstract [facility] [address] [place] [phone] Provider, Abstract 09/15/2024 Abstract [facility] [address] [place] [phone] Elsa Alfaro MD 09/14/2024 Refill [facility] [address] [place] [phone] Elsa Alfaro MD 09/13/2024 Telephone [facility] [address] [place] [phone] Elsa Alfaro MD Med Refill 08/30/2024 External Device Data STL ABSTRACTION Provider, Abstract 08/26/2024 Telephone [facility] [address] [place] [phone] Elsa Alfaro MD dilantin levels (Patient still in hospital and daughter called stating her dilantin levels are still all over the place. Would like Dr Alfaro to call Dr Lisa Edouard [phone] who is taking care of her at [facility]. They held dilantin 2 days and got levels back down but yesterday was a level 7, this morning level 3 and they than gave her 600 mg dilantin thru IV. Daughter is worried about her having another seizure. ) 08/22/2024 Telephone [facility] [address] [place] [phone] Elsa Alfaro MD Med question in hospital 07/19/2024 External Device Data STL ABSTRACTION Provider, Abstract from Last 3 Months Family History Medical [...] on file Legal Sex Female 5:00 PM [employer] Gender Identity Not on file Sexual Orientation Not on file Last Filed Vital Signs Vital Sign Reading Time Taken Comments Blood Pressure 107/70 09/26/2024 8:51 AM CDT Pulse 91 09/26/2024 8:51 AM CDT Temperature 36.7 C (98.1 F) 06/12/2014 1:09 PM [employer]ACHINE Respiratory Rate 16 09/17/2020 10:29 AM CDT Oxygen Saturation 98% 09/26/2024 8:51 AM CDT Inhaled Oxygen Concentration - - Weight 42.2 kg (93 lb) 09/26/2024 8:51 AM CDT Height 147.3 cm (4' 10 ) 09/26/2024 8:51 AM CDT Body Mass Index 19.44 09/26/2024 8:51 AM CDT Plan of Treatment Upcoming Encounters Date Type Department Care Team (Late st Contact Info) Description 02/03/2025 10:30 AM CDT Office Visit [facility] [address] [place] [phone] Elsa Alfaro MD [address] [place] [phone] Health Maintenance Due Date Last Done [...] Associated Diagnosis Comments PHENYTOIN LEVEL, TOTAL Routine 5 10:12 AM CDT Seizure disorder (CMS/HCC) LEVETIRACETAM LEVEL Routine 09/28/2024 1 0:12 AM CDT Seizure disorder (CMS/HCC) from Last 3 Months Results * PHENYTOIN LEVEL, TOTAL (09/28/2024 10:12 AM CDT) Blood 09/28/2024 10:1 2 AM CDT Elsa Alfaro MD CHEMISTRY ORDERABLES Final Res ult Performing Organization Address [facility] Phone Number [facility] [address] [place] [address] * LEVETIRACETAM LEVEL (09/28/2024 10:12 AM CDT) Blood 09/28/2024 10:1 2 AM CDT Elsa Alfaro MD CHEMISTRY ORDERABLES Final Res ult Performing Organization Address [facility] de Phone Number [facility] [address] [place] [address] from Last 3 Months Insurance MEDICARE PART A AND [facility] [place] [address] Advance Directives For more information, please contact: [phone] * Full Code (Latest Code Status on File) Date Activated Date Inactivated Comments 06/08/2014 7:42 PM 06/12/2014 8:00 PM Care Teams Closet Builder Relationship Specialty Start Date End Date Annelise Vaz MD [address] [place] [phone] PCP - General Family Practice 02/05/24
== END 2024-10-07 14:52 | disposition home or self-care (01) ==
PROVIDERS: PCP Family Medicine; Visit Provider Family Medicine
DX: I82.492 Acute embolism and thrombosis of other specified deep vein of left lower extremity (principal)
CPT/HCPCS: 93971